=== PATIENT | female | born 1950 | race Caucasian/White ===

== ENCOUNTER 2017-07-28 20:21 | Emergency (ER) | payer MEDICARE, MEDICAID, SELFPAY ==
[2017-07-28 21:05] VITALS: BP 119/42; PULSE 70; RESP 18; TEMP 36.6; O2SAT 97; BMI 28.3
--- NOTE | 2017-07-28 21:22 | HMH.EDUTC ---
[facility] [place] [facility] [place] Clinical Impression: Lip dryness, Bleeding, Anticoagulant long-term use Anemia Qualifiers: Anemia type: unspecified type Qualified Code(s): D64.9 - Anemia, unspecified Disposition: Home, Self-Care Condition on Discharge: Good Additional Instructions: Bleeding was stopped Follow up with Dr. Sullivan tomorrow regarding your anemia. Your blood count has continued to slowly drop since Mar 2017, the last time I see it in the system Your INR was stable at 2.8 Referrals: Monisha Peguero MD [Primary Care Provider] - Time of Disposition: 22:26 Medical Decision Making - Medical Records Medical records reviewed: Yes: I reviewed the patient's medical records. MR Comment: Mar 2017 H/H 9.1/27.9 Vital Signs: 07/28/17 21:05 Temperature 97.9 F Temperature Source Temporal Artery Scan Pulse Rate [Brachial] 70 Respiratory Rate 18 Blood Pressure [Left Arm] 119/42 Blood Pressure Mean [Left Arm] 67 Blood Pressure Source [Left Arm] Automatic Cuff Blood Pressure Position [Left Arm] Sitting 02 Sat by Pulse Oximetry 97 Oxygen Delivery Method Room Air - Lab Data Lab results reviewed: Yes: I reviewed the patient's lab results. Lab Results 07/28/17 21:39: WBC 6.3, RBC 2.96 L, Hgb 8.9 L, Hct 27.0 L, MCV 91.0, MCH 30.1, MCHC 33.1, RDW 15.7, Plt Count 246, MPV 8.7, Neut % (Auto) 69.7, Lymph % (Auto) 22.4, Robeson % (Auto) 5.9, Eos % (Auto) 1.4, Baso % (Auto) 0.6, Neut # (Auto) 4.4, Lymph # (Auto) 1.4, Robeson # (Auto) 0.4, Eos # (Auto) 0.1, Baso # (Auto) 0.0 07/28/17 21:39: PT 30.9 H, INR 2.83 H Result diagrams: 07/28/17 21:39 - Physician Consults Physician Consulted: ROBERT Hidalgo MD Reason -: Pt condition Comment/Response: Discussed PMHx, HPI, exam. Came to clinic to see patient. Knows patient. tried to stop bleeding by infusing surrounding area w/ minimal amount of lidocaine w/ epi. No improvement so he lightly tapped bleeding w/ silver nitrate. Bleeding stopped. - Chet Inquiry Pt receiving controlled substance: No [facility] [place] [facility] [place] - General Stated complaint: skin on lips bleeding Time Seen by Provider: 07/28/17 21:22 Mode of Arrival: Ambulatory Source of Information: Patient Limitations: No Limitations Description of Symptoms (Recalled from Triage Doc. by RN): BOTTOM LIP HAS BEEN BLEEDING SINCE 4 PM TODAY HEENT Symptoms (Recalled from RN notes): No Resp Symptoms (Recalled from RN notes): No Skin Symptoms (Recalled from RN notes): No MS Symptoms (Recalled from RN notes): No Functional Status (Recalled from RN notes): NA - History of Present Illness Provider Complaint: c/o bottom lip bleeding since 4pm. Reports dry lips due to this cold weather . Picked the skin around 4pm. Just a small little hole but it won't stop bleeding . Has tried pressure, ice and then more pressure but continues to slowly bleed. On coumadin. Last INR 07/07 2.9. No changes to medications. Hx of anemia. Has had blood transfusions in the past. Isn't sure what her latest H/H is. - Related Data Home Medications Medication Instructions Recorded Confirmed acetaminophen ER 650 mg 650 mg PO ONCE PRN 07/26/17 tablet,extended release amlodipine 2.5 mg tablet 2.5 mg PO ONCE 07/26/17 atorvastatin 40 mg tablet 40 mg PO ONCE 07/26/17 calcium carbonate 500 mg calcium 500 mg PO QD-BID tab 07/26/17 (1,250 mg) tablet diazepam 2 mg tablet 2 mg PO TID tab 07/26/17 enalapril maleate 10 mg tablet 10 mg PO ONCE tab 07/26/17 ferrous sulfate 325 mg (65 mg 325 mg PO TID tab 07/26/17 iron) tablet furosemide 20 mg tablet 20 mg PO ONCE 07/26/17 glimepiride 2 mg tablet 2 mg PO QAM 07/26/17 isosorbide mononitrate ER 30 mg 30 mg PO QAM 07/26/17 tablet,extended release 24 hr metformin 500 mg tablet 500 mg PO .QDAY tab 07/26/17 metoprolol succinate ER 50 mg 50 mg PO .qday tab 07/26/17 tablet,extended release 24 hr nitroglycerin 0.4 mg sublingual 0.4 mg SUBLINGUAL Q5M PRN 07/26/17 tablet ondansetron HCl 4 mg tablet 4
--- NOTE | 2017-07-28 21:30 | ED_ITS ---
[facility] – [place] Clinical Impression: Lip dryness, Bleeding, Anticoagulant long-term use Anemia Qualifiers: Anemia type: unspecified type Qualified Code(s): D64.9 - Anemia, unspecified Disposition: Home, Self-Care Condition on Discharge: Good Additional Instructions: Bleeding was stopped Follow up with Dr. Sullivan tomorrow regarding your anemia. Your blood count has continued to slowly drop since Mar 2017, the last time I see it in the system Your INR was stable at 2.8 Referrals: Monisha Peguero MD [Primary Care Provider] - Time of Disposition: 22:26 Medical Decision Making - Medical Records Medical records reviewed: Yes: I reviewed the patient's medical records. MR Comment: Mar 2017 H/H 9.1/27.9 Vital Signs: 07/28/17 21:05 Temperature 97.9 F Temperature Source Temporal Artery Scan Pulse Rate [Brachial] 70 Respiratory Rate 18 Blood Pressure [Left Arm] 119/42 Blood Pressure Mean [Left Arm] 67 Blood Pressure Source [Left Arm] Automatic Cuff Blood Pressure Position [Left Arm] Sitting 02 Sat by Pulse Oximetry 97 Oxygen Delivery Method Room Air - Lab Data Lab results reviewed: Yes: I reviewed the patient's lab results. Lab Results 07/28/17 21:39: WBC 6.3, RBC 2.96 L, Hgb 8.9 L, Hct 27.0 L, MCV 91.0, MCH 30.1, MCHC 33.1, RDW 15.7, Plt Count 246, MPV 8.7, Neut % (Auto) 69.7, Lymph % (Auto) 22.4, Grady % (Auto) 5.9, Eos % (Auto) 1.4, Baso % (Auto) 0.6, Neut # (Auto) 4.4 , Lymph # (Auto) 1.4, Grady # (Auto) 0.4, Eos # (Auto) 0.1, Baso # (Auto) 0.0 07/28/17 21:39: PT 30.9 H, INR 2.83 H Result diagrams: 07/28/17 21:39 - Physician Consults Physician Consulted: ROBERT Hidalgo MD Reason -: Pt condition Comment/Response: Discussed PMHx, HPI, exam. Came to clinic to see patient. Knows patient. tried to stop bleeding by infusing surrounding area w/ minimal amount of lidocaine w/ epi. No improvement so he lightly tapped bleeding w/ silver nitrate. Bleeding stopped. - Chet Inquiry Pt receiving controlled substance: No [facility] [place] HPI - General Stated complaint: skin on lips bleeding Time Seen by Provider: 07/28/17 21:22 Mode of Arrival: Ambulatory Source of Information: Patient Limitations: No Limitations Description of Symptoms (Recalled from Triage Doc. by RN): BOTTOM LIP HAS BEEN BLEEDING SINCE 4 PM TODAY HEENT Symptoms (Recalled from RN notes): No Resp Symptoms (Recalled from RN notes): No Skin Symptoms (Recalled from RN notes): No MS Symptoms (Recalled from RN notes): No Functional Status (Recalled from RN notes): NA - History of Present Illness Provider Complaint: c/o bottom lip bleeding since 4pm. Reports dry lips due to this cold weather . Picked the skin around 4pm. Just a small little hole but it won't stop bleeding . Has tried pressure, ice and then more pressure but continues to slowly bleed. On coumadin. Last INR 07/07 2.9. No changes to medications. Hx of anemia. Has had blood transfusions in the past. Isn't sure what her latest H/H is. - Related Data Home Medications Medication Instructions Recorded Confirmed acetaminophen ER 650 mg 650 mg PO ONCE PRN 07/26/17 tablet,extended release amlodipine 2.5 mg tablet 2.5 mg PO ONCE 07/26/17 atorvastatin 40 mg tablet 40 mg PO ONCE 07/26/17 calcium carbonate 500 mg calcium 500 mg PO QD-BID tab 07/26/17 (1,250 mg) tablet diazepam 2 mg tablet 2 mg PO TID tab 07/26/17 enalapril chrissy
[2017-07-28 21:50] LABS: Basophils % 0.6 % (0.1-2.0); Eosinophils # 0.1 K/mm3 (0.0-0.4); Eosinophils % 1.4 % (0.1-12.0); Hemoglobin 8.9 g/dL (12.2-16.2); Lymphocytes # 1.4 K/mm3 (0.7-4.5); Lymphocytes % 22.4 K/mm3 (10-50); Mean Corpuscular HGB Conc 33.1 g/dL (31.8-35.4); Mean Corpuscular Hemoglobin 30.1 pg (27.0-31.2); Mean Platelet Volume 8.7 fl (7.4-10.4); Monocytes # 0.4 K/mm3 (0.1-1.0); Monocytes % 5.9 % (1.7-9.3); Neutrophils # 4.4 K/mm3 (1.8-7.8); Neutrophils % 69.7 % (37.0-80.0); Platelet Count 246 K/mm3 (142-424); Red Blood Count 2.96 M/mm3 (4.20-5.40); Red Cell Distribution Width 15.7 % (11.5-17.5); White Blood Count 6.3 K/mm3 (4.8-10.8)
[2017-07-28 21:55] LABS: INR 2.83 (0.9-1.1); Prothrombin Time 30.9 seconds (9.4-11.8)
== END 2017-07-28 22:32 | disposition home or self-care (01) ==
PROVIDERS: Emergency Provider Nurse Practitioner Family; PCP Family Medicine
DX: K13.0 Diseases of lips (principal); D64.9 Anemia, unspecified; I50.9 Heart failure, unspecified; I25.10 Atherosclerotic heart disease of native coronary artery without angina pectoris; E11.9 Type 2 diabetes mellitus without complications; K21.9 Gastro-esophageal reflux disease without esophagitis; I11.0 Hypertensive heart disease with heart failure; E78.5 Hyperlipidemia, unspecified; M19.90 Unspecified osteoarthritis, unspecified site; Z95.0 Presence of cardiac pacemaker; Z95.1 Presence of aortocoronary bypass graft; Z79.01 Long term (current) use of anticoagulants; Z79.84 Long term (current) use of oral hypoglycemic drugs; Z79.899 Other long term (current) drug therapy; Z85.9 Personal history of malignant neoplasm, unspecified
CPT/HCPCS: 85025; 85610; 99202

== ENCOUNTER → 2017-07-29 12:08 | Outpatient (CLI) | payer MEDICARE, MEDICAID, SELFPAY | PROVIDERS: PCP Family Medicine; Visit Provider Physician Assistant | DX: D64.9 Anemia, unspecified (principal) | CPT/HCPCS: 86850; 86870 ==

== ENCOUNTER → 2017-07-30 08:14 | Outpatient (CLI) | payer MEDICARE, MEDICAID, SELFPAY ==
[2017-07-30] VITALS (19 sets, daily range): BP systolic 116–149; BP diastolic 37–60; PULSE 60–67; RESP 16–18; TEMP 36.2–36.5; O2SAT 95–98; BMI 29.2
[2017-07-30 14:46] LABS: Hematocrit 31.6 % (37.0-47.0); Hemoglobin 11.1 g/dL (12.2-16.2)
== END | disposition home or self-care (01) ==
PROVIDERS: PCP Family Medicine; Visit Provider Family Medicine
DX: D64.9 Anemia, unspecified (principal)
CPT/HCPCS: 36430; 85014; 85018; P9016

== ENCOUNTER → 2017-10-19 08:31 | Outpatient (CLI) | payer MEDICARE, MEDICAID, SELFPAY ==
--- NOTE | 2017-10-19 08:41 | CI_ITS ---
Cerebrovascular Exam Indications: 433.10 Occlusion/stenosis of carotid artery without cerebral infarction. 780.4 Dizziness and giddiness. IMPRESSIONS 1. The bilateral vertebral arteries are patent with normal antegrade flow. 2. Study suggests 20-49% stenosis involving the right internal carotid artery and the left internal carotid artery. No change from the study of 24-Jan-2015. History: Risk factors: Hypertension. Hyperlipidemia. Carotid duplex study. Complete study and Doppler flow study including spectral analysis, color and holguin scale imaging. Height: Height: 152.4cm. Height: 60in. Weight: Weight: 65.3kg. Weight: 143.7lb. Body mass index: BMI: 28.1kg/m^2. Body surface area: BSA: 1.68m^2. Location: Vascular laboratory. Patient status: Outpatient. Tables: Arterial flow: + +--------+--------+ Location V sys V ed + +--------+--------+ Right CCA - proximal 62.9cm/s 14.1cm/s + +--------+--------+ Right CCA - distal 66cm/s 11cm/s + +--------+--------+ Right ECA 126cm/s -------- + +--------+--------+ Right ICA - proximal 95.1cm/s 22.8cm/s + +--------+--------+ Right ICA - mid 80.9cm/s 22cm/s + +--------+--------+ Right ICA - distal 105cm/s 24.7cm/s + +--------+--------+ Right vertebral 51.9cm/s -------- + +--------+--------+ Left CCA - proximal 95.1cm/s 18.9cm/s + +--------+--------+ Left CCA - distal 76.2cm/s 16.5cm/s + +--------+--------+ Left ECA 91.1cm/s -------- + +--------+--------+ Left ICA - proximal 110cm/s 27.5cm/s + +--------+--------+ Left ICA - mid 103cm/s 29.9cm/s + +--------+--------+ Left ICA - distal 99.5cm/s 24.9cm/s + +--------+--------+ Left vertebral 50.3cm/s -------- + +--------+--------+ Velocity ratios: + + + + + + Right, V sys Right, V ed Left, V sys Left, V ed + + + + + + Max ICA/dist CCA 1.59 2.25 1.44 1.81 + + + + + + (Report amended ) Electronically signed by: Arnold Muse [id number]
== END ==
PROVIDERS: PCP Family Medicine; Visit Provider Family Medicine
DX: I65.23 Occlusion and stenosis of bilateral carotid arteries (principal)
CPT/HCPCS: 93880

== ENCOUNTER → 2017-11-24 10:24 | Outpatient (CLI) | payer MEDICARE, MEDICAID, SELFPAY ==
--- NOTE | 2017-11-24 10:41 | CA_ITS ---
PROCEDURE: 2-D M-mode and color Doppler study INDICATIONS FOR THE TEST: Chest pain COPD Heart Murmur Tobacco Smoking Palpitations Fatigue+ Syncope Edema+ Hypertension+Diabetes Mellitus Rheumatic Fever SOB+LINARES Obesity Hyperlipidemia+ Family History HD Additional History PATIENT INFORMATION HEIGHT:60 WEIGHT:146 GENDER: Female B/P: 2-D/M-MODE INTERPRETATION: 2-D MEASUREMENTS OBSERVED VALUES IN CMS Right Ventricular Dimension (RVDd) 2.1 Interventricular Septum (Thickness)(IVsd) 1.6 Left Ventricular Internal Dimensions(LVIDd) 4.6 Left Ventricular Posterior Wall (Thickness)(LVPWd) 0.9 Aortic Root 2.9 Aortic Cusp Separation 1.4 Left Atrial Dimensions (LAD) 4.0 2D 1. Left atrium is mildly enlarged, left ventricle is normal size, there is mild concentric left ventricular hypertrophy, visually estimated ejection fraction 55% with no obvious regional wall motion abnormality. 2. The right atrium and right ventricle are normal size and contractility. There is catheter noted in the right atrium which likely represents a pacemaker lead. 3. The aortic valve leaflets are not well visualized, there is significant calcification of the aortic valve leaflets seen. 4. The mitral valve leaflets are minimally thickened. 5. The tricuspid valve leaflets are minimally thickened. 6. The pulmonic valve is not well visualized. 7. No significant pericardial effusion noted. DOPPLER INTERROGATION: 1. The maximum aortic out flow velocity recorded study. 4.7 m/s, the mean gradient is approximately 40 to 45 mmHg, valve area is not accurately calculated, this likely represents severe aortic stenosis, there is severe aortic insufficiency present. 2. The mitral inflow velocity within normal range, there is no mitral stenosis, there is mild mitral regurgitation. Tissue Doppler is indicated of raised left atrial pressure. 3. There is mild tricuspid regurgitation noted, calculated right ventricular systolic pressure is 61 mmHg consistent with moderate pulmonary hypertension. CONCLUSION: 1. Mildly enlarged left atrium, normal left ventricular size, mild concentric left ventricular hypertrophy, visually estimated ejection fraction 55% with no obvious regional wall motion abnormality, Doppler evidence of raised left atrial pressure. 2. Abnormally aortic valve is described above, with severe aortic stenosis and severe aortic insufficiency. 3. Mild tricuspid regurgitation, calculated right ventricular systolic pressure is 61 mmHg consistent with moderate pulmonary hypertension 4. No significant pericardial
== END ==
PROVIDERS: PCP Family Medicine; Visit Provider Internal Medicine
DX: I35.1 Nonrheumatic aortic (valve) insufficiency (principal); I25.10 Atherosclerotic heart disease of native coronary artery without angina pectoris; I11.9 Hypertensive heart disease without heart failure; E78.5 Hyperlipidemia, unspecified; Z95.0 Presence of cardiac pacemaker; Z95.2 Presence of prosthetic heart valve
CPT/HCPCS: 93306

== ENCOUNTER → 2017-11-26 11:02 | Outpatient (CLI) | payer MEDICARE, MEDICAID, SELFPAY ==
--- NOTE | 2017-11-26 11:15 | XR_ITS ---
XR knee RT 4V HISTORY: ITS.REASON: right knee pain ORDERING PHYSICIAN: Bravo Callahan MD PATIENT AGE: 66 years COMPARISON: None FINDINGS: There are severe osteoarthritic changes at the patellofemoral joint with loss of joint space, osteosclerosis, and bony spurring. Mild osteoarthritis involves the medial lateral compartment. No fracture or dislocation. 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
--- NOTE | 2017-11-26 11:15 | XR_ITS ---
XR hip LT 2-3V w/pelvis HISTORY: ITS.REASON: left hip pain ORDERING PHYSICIAN: Bravo Callahan MD PATIENT AGE: 66 years COMPARISON: None FINDINGS: Minimal osteoarthritic changes are present at the left hip with minimal spurring along the inferior aspect of acetabulum and slight decrease in the joint space superiorly. There is degenerative disc disease with facet arthritic change at L4-L5. No fracture, dislocation, lytic or blastic change. IMPRESSION: Minimal osteoarthritis of left hip
--- NOTE | 2017-11-26 11:15 | XR_ITS ---
XR knee LT 4V HISTORY: ITS.REASON: left knee pain ORDERING PHYSICIAN: Bravo Callahan MD PATIENT AGE: 66 years COMPARISON: 01/13/2017 FINDINGS: There are mild osteoarthritic changes of the medial and lateral compartment with moderate osteoarthritic changes of the patellofemoral joint and greater along the lateral facet with bony hypertrophic change. The previously noted loose body is not apparent on today's exam IMPRESSION: Moderate osteoarthritic change of the patellofemoral joint and mild osteoarthritic change of the medial and lateral compartment
== END ==
PROVIDERS: PCP Family Medicine; Visit Provider Orthopaedic Surgery
DX: M25.552 Pain in left hip (principal); M25.562 Pain in left knee; M25.561 Pain in right knee
CPT/HCPCS: 73502; 73564

== ENCOUNTER 2017-12-07 13:47 | Outpatient (RCR) | payer MEDICARE, MEDICAID, SELFPAY ==
--- NOTE | 2017-12-07 18:36 | HMH.PTOPEV ---
PT Outpatient Evaluation Rehab PT Outpatient Evaluation Start: 12/07/17 14:38 Freq: Status: Active Protocol: Document 12/07/17 14:39 OLIVIA (Rec: 12/07/17 15:09 JOEANAI [id number]) Electronically Signed By John Schrader, PT 12/07/17 14:39 Outpatient Therapy Subjective History Subjective History Pt is a 66 year old female presenting to outpatient PT with reports of L hip, bilateral knee pain and L distal LE pain. L hip pain is of insidious onset starting appproximately 3 weeks ago. BLE knee pain is chronic in nature. L anterior tibialis pain decreased with lumbar manual traction and lumbar flexion. Special tests indicate L upslip of the innominant. Most recently she received an injection into the L hip that did not provide any relief per patient report. Comorbidities include pacemaker, cardio stent and diabetes. Chief Complaint Pain Clicks Symptom Type Ache Sharp Dull Symptoms Relieved By Rest/Positioning Symptoms Aggravated By Prone Sitting Standing Physical Activity Twisting Walking Lifting Prior Functional Limitations None Current Functional Limitations Reaching Lifting Housework Sleeping Standing Sitting Squatting Recreation Activity Walking Stairs Balance Symptom Description Constant and Continuous Level of pain today (0-10) 9 Pain scale - at its best (0-10) 9 Pain scale - at its worst (0-10) 9 Hip/Knee Eval Gait Observation General Gait Pattern Observation Antalgic Gait Assistive Device Assistive Devices None / NA Palpation Tenderness bilateral Knee Palpation Finding Tende
== END 2017-12-07 13:48 | disposition home or self-care (01) ==
LOC: PT 13:47
PROVIDERS: PCP Family Medicine; Visit Provider Orthopaedic Surgery
DX: M70.72 Other bursitis of hip, left hip (principal); M17.0 Bilateral primary osteoarthritis of knee
CPT/HCPCS: 97010; 97035; 97110; 97163

== ENCOUNTER → 2018-01-21 09:26 | Outpatient (CLI) | payer MEDICARE, MEDICAID, SELFPAY ==
--- NOTE | 2018-01-21 09:29 | MM_ITS ---
MM Dig screening mamm BI w/CAD CAD Screening COMPARISON: Digital mammograms with CAD 01/19/2017 and 01/17/2016 INDICATION: There is no personal or family history of breast cancer TECHNIQUE: Standard CC and MLO images were obtained. R2 CAD reviewed. FINDINGS: The breasts are composed primarily of fat with minimal scattered fiber glandular densities in each breast. There is a cardiac pacemaker projecting over the axillary tail the left breast. There are couple benign-appearing calcination is right breast and no suspicious microcalcifications. IMPRESSION: Fatty type breast parenchyma with no suspicious lesion seen recommend yearly follow-up BI-RADS Category: 2 Benign Finding(s) RECOMMENDED FOLLOW-UP: 1YR - 1 YEAR FOLLOW-UP (A letter has been sent to the patient regarding results of the study.)
== END ==
PROVIDERS: PCP Family Medicine; Visit Provider Family Medicine
DX: Z12.31 Encounter for screening mammogram for malignant neoplasm of breast (principal)
CPT/HCPCS: 77067

== ENCOUNTER → 2018-05-19 09:52 | Outpatient (CLI) | payer MEDICARE, MEDICAID, SELFPAY ==
--- NOTE | 2018-05-19 09:59 | CT_ITS ---
CT chest wo con HISTORY: Chest pain, Aortic regurgitation, open heart surgery with persistent posterior chest pain, ITS.REASON: . ORDERING PHYSICIAN: Tye Smith MD PATIENT AGE: 67 years COMPARISON: None Technique: Axial images obtained with sagittal and coronal reformats. All CT scans at the facility use one or more dose reduction, viz: automated exposure control, ma/kV adjustment per patient size (including targeted exams where dose is matched to indication, i.e. head), or iterative reconstruction technique. FINDINGS: Mediastinal evaluation is limited without IV contrast. Status post median sternotomy. There is some stranding of the presternal soft tissues in keeping with patient's recent postsurgical state. No obvious sternal dehiscence. The left sternal fragment is very slightly displaced posterior by 2 3-mm. There is some increased soft tissue density in the anterior mediastinum which may related to the recent surgery. Status post aortic valve repair. Cardiac pacemaker device is present. Heart size is normal. There are small hiatal hernia.. Gas is present within the esophagus with mild thickening of the mid and distal esophagus which could be due to reflux esophagitis. Artifact is present from cardiac pacemaker device with the generator in the left upper chest. No hilar mass. There is a 10 mm nodule in the right upper lobe along the minor fissure noncalcified. There is a 6 mm noncalcified nodule in the right middle lobe. Several small opacities are present in the right middle lobe laterally nonspecific. Similar cluster of small opacities are present in the left upper lobe. Only. These have a somewhat tree-in-bud pattern and may be due to patchy areas of infiltrate. Mild atelectatic changes are present in the lingula. A subpleural nodule is present in the left lower lobe at 7 mm. There is a small left pleural effusion. Minimal nodularity is present in the left apex medially. Upper abdominal images show a small hiatal hernia. There is an isodense lesion involving the right hepatic lobe posteriorly at 2.6 cm with peripheral calcification. There are 2 smaller nodules anterior to this lesion at 1 and 1.3 cm. Postsurgical changes are present along the anterior abdominal wall in the subxiphoid area. No acute bony anomalies. IMPRESSION: 1., Status post median sternotomy with aortic valve replacement with postsurgical changes of the mediastinum and sternum and presternal area as described above. 2. Hiatal hernia with thickening of the mid and distal esophagus which may be related to reflux esophagitis 3. Scattered pulmonary nodules as described above which are nonspecific. The largest nodules in the region of the minor fissure on the right may be due to a lymph node. 3 month follow-up CT suggested 4. 2.6 cm hypodense nodule of the right lobe of the liver with 2 additional hypodense lesions anterior to the larger lesion. These were present on the older CT scan of 12/30/2007 felt to represent hemangiomas.
== END ==
PROVIDERS: PCP Family Medicine; Visit Provider Internal Medicine Cardiovascular Disease
DX: I11.9 Hypertensive heart disease without heart failure; I25.10 Atherosclerotic heart disease of native coronary artery without angina pectoris; R07.9 Chest pain, unspecified; Z95.0 Presence of cardiac pacemaker; E78.49 Other hyperlipidemia
CPT/HCPCS: 71250

== ENCOUNTER → 2018-06-06 12:50 | Outpatient (POV) | payer MEDICARE, MEDICAID, SELFPAY | PROVIDERS: Visit Provider Nurse Practitioner Acute Care | DX: Z00.00 Encounter for general adult medical examination without abnormal findings (principal) ==

== ENCOUNTER → 2018-08-08 11:08 | Outpatient (POV) | payer MEDICARE, MEDICAID, SELFPAY | PROVIDERS: Visit Provider Nurse Practitioner Acute Care | DX: Z00.00 Encounter for general adult medical examination without abnormal findings (principal) ==

== ENCOUNTER → 2018-09-15 16:08 | Outpatient (CLI) | payer MEDICARE, MEDICAID, SELFPAY ==
[2018-09-15 16:50] LABS: Adenovirus F 40/41, stool Not Detected (NotDetected); Astrovirus Not Detected (NotDetected); Campylobacter Not Detected (NotDetected); Clostridium Difficile A/B, PCR Not Detected (NotDetected); Cryptosporidium Not Detected (NotDetected); Cyclospora Cayetanesis Not Detected (NotDetected); Entamoeba histolytica Not Detected (NotDetected); Enteroaggregative E coli Not Detected (NotDetected); Enteropathogenic E coli Not Detected (NotDetected); Enterotoxigenic E coli Not Detected (NotDetected); Giardia lamblia Not Detected (NotDetected); Norovirus Not Detected (NotDetected); Plesimonas Shigalloides, PCR Not Detected (NotDetected); Rotavirus A Not Detected (NotDetected); Salmonella, PCR Not Detected (NotDetected); Sapovirus Not Detected (NotDetected); Shiga-like toxin E coli Not Detected (NotDetected); Shigella Enterovasive E coli Not Detected (NotDetected); Vibrio Cholerae Not Detected (NotDetected); Vibrio, PCR Not Detected (NotDetected); Yersinia Entercolitica, PCR Not Detected (NotDetected)
== END ==
PROVIDERS: Visit Provider Physician Assistant
DX: R19.7 Diarrhea, unspecified (principal)
CPT/HCPCS: 87506

== ENCOUNTER → 2018-11-25 12:31 | Outpatient (CLI) | payer MEDICARE, MEDICAID, SELFPAY ==
[2018-11-25 13:58] LABS: Alanine Aminotransferase 40 U/L (12-78); Albumin Level 4.1 gm/dL (3.4-5.0); Alkaline Phosphatase 116 U/L (46-116); Aspartate Amino Transferase 16 U/L (15-37); Bilirubin,Direct 0.1 mg/dL (0.0-0.2); Bilirubin,Indirect 0.3 mg/dL (0.0-0.9); Bilirubin,Total 0.4 mg/dL (0.2-1.0); Chol/HDL Ratio 3.6 (1-3.5); Cholesterol 193 mg/dL (140-200); HDL Cholesterol 53 mg/dL (29-89); LDL Cholesterol 100 mg/dL (0-130); Total Protein,Serum 7.2 gm/dL (6.4-8.2); Triglycerides 199 mg/dL (30-200); VLDL Cholesterol 40 mg/dL (0-40)
== END ==
PROVIDERS: Visit Provider Internal Medicine Cardiovascular Disease
DX: I11.9 Hypertensive heart disease without heart failure; I25.10 Atherosclerotic heart disease of native coronary artery without angina pectoris; R06.09 Other forms of dyspnea; Z95.0 Presence of cardiac pacemaker; Z95.1 Presence of aortocoronary bypass graft; Z95.3 Presence of xenogenic heart valve; E78.49 Other hyperlipidemia
CPT/HCPCS: 36415; 80061; 80076

== ENCOUNTER → 2018-12-16 09:50 | Outpatient (CLI) | payer MEDICARE, MEDICAID, SELFPAY ==
--- NOTE | 2018-12-16 09:52 | CI_ITS ---
Cerebrovascular Exam Indications: 433.10 Occlusion/stenosis of carotid artery without cerebral infarction. IMPRESSIONS 1. The bilateral vertebral arteries are patent with normal antegrade flow. 2. Study suggests 20-49% stenosis involving the right internal carotid artery and the left internal carotid artery. No change from the study of 19-Oct-2017. 3. Tortuous carotid arteries seen bilaterally. Carotid duplex study. Complete study and Doppler flow study including spectral analysis, color and holguin scale imaging. Location: Vascular laboratory. Patient status: Outpatient. Tables: Arterial flow: + +--------+--------+ Location V sys V ed + +--------+--------+ Right CCA - proximal 72.3cm/s 17.3cm/s + +--------+--------+ Right CCA - distal 72.3cm/s 18.9cm/s + +--------+--------+ Right ECA 144cm/s -------- + +--------+--------+ Right ICA - proximal 97.4cm/s 29.9cm/s + +--------+--------+ Right ICA - mid 118cm/s 39.3cm/s + +--------+--------+ Right ICA - distal 86.4cm/s 30.6cm/s + +--------+--------+ Right vertebral 58.1cm/s -------- + +--------+--------+ Left CCA - proximal 77.8cm/s 18.9cm/s + +--------+--------+ Left CCA - distal 75.4cm/s 20.4cm/s + +--------+--------+ Left ECA 110cm/s -------- + +--------+--------+ Left ICA - proximal 95.1cm/s 29.9cm/s + +--------+--------+ Left ICA - mid 97.4cm/s 36.9cm/s + +--------+--------+ Left ICA - distal 152cm/s 46.4cm/s + +--------+--------+ Left vertebral 63.6cm/s -------- + +--------+--------+ Velocity ratios: + + + + + + Right, V sys Right, V ed Left, V sys Left, V ed + + + + + + Max ICA/dist CCA 1.63 2.08 2.02 2.27 + + + + + + (Report amended ) Electronically signed by: Arnold Muse [id number]
== END ==
PROVIDERS: PCP Family Medicine; Visit Provider Urology
DX: I65.23 Occlusion and stenosis of bilateral carotid arteries (principal)
CPT/HCPCS: 93880

== ENCOUNTER → 2019-01-24 10:32 | Outpatient (POV) | payer MEDICARE, MEDICAID, SELFPAY | PROVIDERS: Visit Provider Otolaryngology | DX: Z00.00 Encounter for general adult medical examination without abnormal findings (principal) ==

== ENCOUNTER → 2019-07-18 10:56 | Outpatient (CLI) | payer MEDICARE, OTHER, SELFPAY ==
--- NOTE | 2019-07-18 10:57 | CA_ITS ---
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: CT Laterality: Bilateral Study Quality: Good Indications: NEFTALI Risk Factors Hyperlipidemia Doppler Spectral Velocity Analysis ECA (R) 193.00/23.90 cm/s ECA (L) 95.70/9.60 cm/s dICA (R) 72.30/15.80 cm/s dICA (L) 147.60/48.10 cm/s Paris (R) 90.50/22.50 cm/s [place] (L) 99.50/33.40 cm/s pICA (R) 80.30/23.80 cm/s pICA (L) 85.50/27.30 cm/s dCCA (R) 57.90/10.40 cm/s dCCA (L) 97.00/20.50 cm/s pCCA (R) 89.40/17.60 cm/s pCCA (L) 76.50/20.30 cm/s Vert (R) 56.40/17.30 cm/s Vert (L) 60.70/13.30 cm/s ICA/CCA 1.60 ICA/CCA 1.50 Findings Duplex evaluation demonstrates stenosis of the right and left proximal internal carotid artery in the range of 20-49%. Duplex evaluation demonstrates antegrade flow of the bilateral Vertebral Arteries. Tortuous Internal carotid arteries seen distally. Conclusion Duplex evaluation demonstrates stenosis of the right and left proximal internal carotid artery in the range of 20-49%. Electronically signed by : Arnold Muse MD 07/18/2019 16:14:37
== END ==
PROVIDERS: PCP Family Medicine; Visit Provider Internal Medicine Cardiovascular Disease
DX: I65.23 Occlusion and stenosis of bilateral carotid arteries (principal)
CPT/HCPCS: 93880

== ENCOUNTER → 2019-08-07 09:51 | Outpatient (POV) | payer MEDICARE, OTHER, SELFPAY | PROVIDERS: Visit Provider Nurse Practitioner Family | DX: Z00.00 Encounter for general adult medical examination without abnormal findings (principal) ==

== ENCOUNTER 2019-10-27 14:05 | Emergency (ER) | payer MEDICARE, OTHER, SELFPAY ==
[2019-10-27 14:13] VITALS: BP 160/86; PULSE 80; RESP 18; TEMP 36.6; O2SAT 96; BMI 29.2
--- NOTE | 2019-10-27 14:16 | XR_ITS ---
PROCEDURE: XR CHEST PORTABLE CLINICAL HISTORY: cough/respiratory symptoms COMPARISON: CXR CHEST(2 VIEWS-NOT PORTABLE) from 12/05/2013 CXR1 CHEST-PORTABLE from 01/08/2014 CXR CHEST(2 VIEWS-NOT PORTABLE) from 10/25/[address] chest wo con from 05/19/2018 FINDINGS: There has been a prior CABG. Bipolar pacemaker is present from the left subclavian approach and there is a implantable device at the aortic valve region. The lungs are clear without infiltrates, suspicious nodules, or pleural effusions. No acute bony abnormalities. IMPRESSION: No acute findings. Dictated by: Arnold Muse MD 10/27/2019 15:05 Electronically signed by Arnold Muse MD in [place] 10/27/2019 15:05
--- NOTE | 2019-10-27 14:38 | HMH.COUGH ---
Cough Clinic HPI - History of Present Illness Complaint:: Cough HPI:: 68-year-old female with history of CHF, CABG x2, pacemaker, lives with a smoker who presents with persistent cough. Cough has been persistent for several weeks. Denies fever, dyspnea with exertion, nausea, vomiting, chest pain. While she denies smoking herself, her roommate is her [id number] who smokes a pack a day. Patient otherwise has a paucity of symptoms. Onset (ago): week(s) Severity: mild Home Medications: Home Medications Medication Instructions Recorded Confirmed Type acetaminophen 650 mg 650 mg PO ONCE PRN 07/26/17 10/27/19 History tablet,extended release diazepam 2 mg tablet 2 mg PO TID tab 07/26/17 10/27/19 History glimepiride 2 mg tablet 2 mg PO QAM 07/26/17 10/27/19 History nitroglycerin 0.4 mg sublingual 0.4 mg SUBLINGUAL Q5M PRN 07/26/17 10/27/19 History tablet venlafaxine 37.5 mg tablet 37.5 mg PO BID 07/26/17 10/27/19 History aspirin 81 mg chewable tablet 81 mg PO DAILY 05/13/18 10/27/19 History gabapentin 100 mg capsule 100 mg PO DAILY 05/13/18 10/27/19 History metformin 500 mg tablet 500 mg PO BID tab 05/13/18 10/27/19 History omeprazole 20 mg capsule,delayed 20 mg PO DAILY 05/13/18 10/27/19 History release amlodipine 2.5 mg tablet 2.5 mg PO DAILY 11/25/18 10/27/19 History atorvastatin 80 mg tablet 40 mg PO DAILY 30 Days #15 tab 11/25/18 10/27/19 History ferrous sulfate 325 mg (65 mg 325 mg PO TID tab 11/25/18 10/27/19 History iron) tablet furosemide 20 mg tablet 20 mg PO DAILY 11/25/18 10/27/19 History calcium carbonate-vitamin D3 600 600 cap PO DAILY cap 12/13/18 10/27/19 History mg calcium-200 unit capsule loratadine 10 mg tablet 10 mg PO DAILY 12/13/18 10/27/19 History metoprolol succinate 50 mg 50 mg PO DAILY 12/13/18 10/27/19 History tablet,extended release 24 hr quetiapine 50 mg tablet 50 mg PO BID 12/13/18 10/27/19 History Enalapril Maleate 10 mg PO DAILY 08/28/19 10/27/19 History Allergies/Adverse Reactions: Allergies Allergy/AdvReac Type Severity Reaction Status Date / Time codeine [CODEINE] Allergy Unknown WEAK Verified 10/27/19 14:10 hydrochlorothiazide Allergy Unknown I-RASH Verified 10/27/19 14:10 [HYDROCHLOROTHIAZIDE] hydrocodone [HYDROCODONE] Allergy Unknown I-RASH Verified 10/27/19 14:10 metoclopramide Allergy Unknown SLURRED Verified 10/27/19 14:10 [METOCLOPRAMIDE] SPEECH, WEAK nifedipine [NIFEDIPINE] Allergy Unknown I-HIVES Verified 10/27/19 14:10 prazosin [PRAZOSIN] Allergy Unknown ITCHING/WEA Verified 10/27/19 14:10 K triamterene [TRIAMTERENE] Allergy Unknown I-RASH Verified 10/27/19 14:10 Cough Clinic Triage - Symptoms Fever History: No Chills: No Myalgia: No Nasal Drainage: No Sore Throat: No Productive Cough: No Non-productive Cough: Yes Ear or Sinus Pain: No Joint Pain: No Chest Pain: No Rash: No Shortness of Breath: No Nausea or Vomitting: No Headache: No Abdominal Pain: No Diarrhea: No - Exposure History Foreign Travel: No Direct Contact with COVID-19 Patient: No - Risk Factors Greater than 60 Years Old: Yes COPD: No Diabetes: Yes Heart Disease: Yes Home Oxygen Use: No Chronic Renal Disease: No Chronic Liver Disease: No Neurologic/Neurodevelopmental/intellectual disability: No Other Chronic Diseases: No If Female, currently : No Current Smoker: No Former Smoker: No Cough Clinic History I have reviewed the patient's past medical history: Yes Medical History: Reports:: Cancer (skin), Congestive Heart Failure, Coronary Artery Disease, Diabetes Mellitus Type 2, Gastroesophageal Reflux Disease(GERD), Hyperlipidemia, Hypertension, Internal Pacemaker, Myocardial Infarction, Valvular Heart Disease Denies:: Diabetes Mellitus Type 1, MRSA, Seizures Other Medical History: Reports: Anemia, Arthritis Comment: depression Laterality Cases: Left: Arthroscopy Knee, Bilateral: Tonsillectomy Other Surgeries: Yes: Appendectomy, Cardiac Cath
[2019-10-27 15:17] VITALS: BP 160/86; PULSE 79; RESP 18; TEMP 36.6; O2SAT 96
== END 2019-10-27 15:16 | disposition home or self-care (01) ==
PROVIDERS: Emergency Provider Internal Medicine Adolescent Medicine; PCP Family Medicine
DX: I11.0 Hypertensive heart disease with heart failure (principal); I50.43 Acute on chronic combined systolic (congestive) and diastolic (congestive) heart failure; Z95.0 Presence of cardiac pacemaker; Z95.1 Presence of aortocoronary bypass graft; I25.2 Old myocardial infarction; I25.10 Atherosclerotic heart disease of native coronary artery without angina pectoris; E11.9 Type 2 diabetes mellitus without complications; K21.9 Gastro-esophageal reflux disease without esophagitis; E78.5 Hyperlipidemia, unspecified
CPT/HCPCS: G0463; 71045; 99201; 99213

== ENCOUNTER 2019-10-31 19:18 | Emergency (ER) | payer MEDICARE, OTHER, SELFPAY ==
[2019-10-31 19:20] VITALS: BP 141/82; PULSE 88; RESP 16; TEMP 36.7; O2SAT 99; BMI 31.0
--- NOTE | 2019-10-31 19:40 | CT_ITS ---
PROCEDURE: CT HEAD/BRAIN WO CON CLINICAL INDICATION: headache for a week Severe headache COMPARISON: [facility] CT HEAD W/O CONTRAST from 03/08/2013 TECHNIQUE: Axial images obtained. All CT scans at the facility use one or more dose reduction, viz: automated exposure control, ma/kV adjustment per patient size (including targeted exams where dose is matched to indication, i.e. head), or iterative reconstruction technique. FINDINGS: No midline shift, mass effect, intracranial hemorrhage, hydrocephalus, or extra-axial fluid collection is evident. There is generalized atrophy with hypoattenuation of the periventricular white matter consistent with microangiopathic changes. Small old remote lacunar infarction is present in the genu of the right internal capsule. The calvarium has an unremarkable appearance. No mastoid effusion. No sinus air-fluid level. IMPRESSION: No acute intracranial finding Dictated by: Arnold Muse MD 10/31/2019 21:24 Electronically signed by Arnold Muse MD in [place] 10/31/2019 21:24
--- NOTE | 2019-10-31 19:40 | XR_ITS ---
PROCEDURE: XR CHEST 2V CLINICAL HISTORY: chest pain a couple of days ago Chest pain, heart disease COMPARISON: CXR1 CHEST-PORTABLE from 01/08/2014 CXR CHEST(2 VIEWS-NOT PORTABLE) from 10/25/[address] chest wo con from 05/19/2018 XR CHEST PORTABLE from 10/27/2019 FINDINGS: There is a bipolar pacemaker present from left subclavian approach. There has been a prior CABG. Aortic valve prosthesis is present. No evidence of CHF. The lungs are clear without infiltrates, suspicious nodules, or pleural effusions. No acute bony abnormalities. IMPRESSION: No acute findings. Dictated by: Arnold Muse MD 10/31/2019 21:28 Electronically signed by Arnold Muse MD in [place] 10/31/2019 21:28
--- NOTE | 2019-10-31 19:40 | ECG_ITS ---
APPROVED REPORT Exam: Resting ECG HR:78 bpm ECG Measurements Heart Rate 78 AXES VT 152 P 28 QRSd 148 QRS -65 QT 410 T 93 QTc 467 <Conclusion> Electronic ventricular pacemaker Electronically signed by : Davin White, 11/01/2019 17:15:57
[2019-10-31 20:00] LABS: Basophils # 0.1 K/mm3 (0-0.2); Basophils % 1.1 % (0.1-2.0); Eosinophils # 0.2 K/mm3 (0.0-0.4); Eosinophils % 1.9 % (0.1-12.0); Hematocrit 35.6 % (37.0-47.0); Hemoglobin 12.1 g/dL (12.2-16.2); Lymphocytes # 2.1 K/mm3 (0.7-4.5); Lymphocytes % 23.7 % (10-50); Mean Corpuscular HGB Conc 33.8 g/dL (31.8-35.4); Mean Corpuscular Volume 91.7 fl (81-99); Mean Platelet Volume 7.7 fl (7.4-10.4); Monocytes # 0.6 K/mm3 (0.1-1.0); Monocytes % 6.9 % (1.7-9.3); Neutrophils # 5.8 K/mm3 (1.8-7.8); Neutrophils % 66.3 % (37.0-80.0); Platelet Count 257 K/mm3 (142-424); Red Blood Count 3.89 M/mm3 (4.20-5.40); Red Cell Distribution Width 14.5 % (11.5-17.5); White Blood Count 8.7 K/mm3 (4.8-10.8)
[2019-10-31 20:03] LABS: Chloride 102 mmol/L (98-107); Potassium 4.1 mmoL/L (3.5-5.1); Sodium 138 mmol/L (136-145)
--- NOTE | 2019-10-31 20:04 | PC.NURSE ---
pt in radiology
[2019-10-31 20:06] LABS: Alanine Aminotransferase 94 U/L (12-78); Albumin Level 4.8 g/dl (3.5-5.0); Albumin/Globulin Ratio 1.7 (1.1-1.8); Alkaline Phosphatase 129 U/L (38-126); Anion Gap 26.1 mEq/L (5-15); Aspartate Amino Transferase 55 U/L (14-36); Bilirubin,Total 0.4 mg/dl (0.2-1.3); Blood Urea Nitrogen 14 mg/dl (7-17); Calcium 10.1 mg/dl (8.4-10.2); Carbon Dioxide 14 mmol/L (22.0-30.0); Creatinine Clearance Estimated 60 mL/min (50-200); Estimated Glomerular Filt Rate 83 ml/min (>60); GFR (African American) 100 ML/MIN (>60); Globulin 2.9 g/dL (1.3-3.2); Glucose 81 mg/dl (74-100); Total Protein,Serum 7.7 g/dl (6.3-8.2)
[2019-10-31 20:22] VITALS: BP 169/98; PULSE 78; RESP 16; O2SAT 96
[2019-10-31 20:22] LABS: Troponin I < 0.01 ng/ml (0.00-0.034)
--- NOTE | 2019-10-31 20:26 | HMH.EDHA ---
ED Disposition Clinical Impression: Cardiac pacemaker in situ Headache Qualifiers: Headache type: unspecified Headache chronicity pattern: acute headache Intractability: not intractable Qualified Code(s): R51 - Headache Disposition: Home, Self-Care Condition on Discharge: Good Instructions: DI for Headache Additional Instructions: call pcp in am Referrals: Monisha Peguero MD [Primary Care Provider] - - Critical Care Critical Care Time: No Attestation: On 10/31/19, the high probability of a clinically significant, sudden or life threatening deterioration of the following system(s) required my full and direct attention, intervention and personal management. The time I documented below is in addition to time spent performing reported procedures but includes the following listed in this critical care notation. Medical Decision Making - Medical Records Medical records reviewed: Yes: I reviewed the patient's medical records. - Chet Inquiry Pt receiving controlled substance: No Vital Signs: 10/31/19 19:20 10/31/19 20:22 Temperature 98.1 F Temperature Source Oral Pulse Rate [Left Radial] 88 78 Respiratory Rate 16 16 Blood Pressure [Right Arm] 141/82 H 169/98 H Blood Pressure Mean [Right Arm] 101 121 Blood Pressure Source [Right Arm] Automatic Cuff Blood Pressure Position [Right Arm] Sitting 02 Sat by Pulse Oximetry 99 96 Oxygen Delivery Method Room Air Room Air - Lab Data Lab results reviewed: Yes: I reviewed the patient's lab results. Lab Results 10/31/19 19:45: WBC 8.7, RBC 3.89 L, Hgb 12.1 L, Hct 35.6 L, MCV 91.7, MCH 31.0, MCHC 33.8, RDW 14.5, Plt Count 257, MPV 7.7, Neut % (Auto) 66.3, Lymph % (Auto) 23.7, Mitchell % (Auto) 6.9, Eos % (Auto) 1.9, Baso % (Auto) 1.1, Neut # (Auto) 5.8, Lymph # (Auto) 2.1, Mitchell # (Auto) 0.6, Eos # (Auto) 0.2, Baso # (Auto) 0.1 10/31/19 19:45: Sodium 138, Potassium 4.1, Chloride 102, Carbon Dioxide 14 L, Anion Gap 26.1 H, BUN 14, Creatinine 0.70, Estimated Creat Clear 60, Estimated GFR 83, Est GFR ( Amer) 100, Glucose 81, Calcium 10.1, Total Bilirubin 0.4, AST 55 H, ALT 94 H, Alkaline Phosphatase 129 H, Troponin I < 0.01, Total Protein 7.7, Albumin 4.8, Globulin 2.9, Albumin/Globulin Ratio 1.7 Result diagrams: 10/31/19 19:45 10/31/19 19:45 Orders (Tests/Meds): ED MEDICATIONS Generic Name Dose Route Start Last Admin Trade Name Freq PRN Reason Stop Dose Admin Sodium Chloride 1,000 mls @ 999 mls/hr 10/31/19 19:45 10/31/19 20:05 Sod Chlor 0.9% 1000ml Bag IV 10/31/19 20:45 999 mls/hr .Q1H1M SALEEM Administration Discontinued Medications Generic Name Dose Route Start Last Admin Trade Name Freq PRN Reason Stop Dose Admin Ketorolac Tromethamine 30 mg 10/31/19 19:43 10/31/19 20:14 Toradol 30mg/Ml Vial IV 10/31/19 19:44 30 mg ONCE ONE Administration Methylprednisolone Sodium Succinate 125 mg 10/31/19 19:43 10/31/19 20:05 Solu-Medrol 125mg/2ml Vial IV 10/31/19 19:44 125 mg ONCE ONE Administration Promethazine HCl 12.5 mg 10/31/19 20:10 10/31/19 20:14 Phenergan 25mg/Ml 1ml Vial IV 10/31/19 20:11 12.5 mg ONCE ONE Administration Sodium Chloride 25 ml 10/31/19 20:10 10/31/19 20:14 Sod Chlor 0.9% 25ml Bag IV 10/31/19 20:11 25 ml ONCE ONE Administration ORDERS Category Date Time Status CT head/brain wo con Stat Cat Scan 10/31/19 19:40 Taken XR chest 2V Stat Exams 10/31/19 19:40 Taken Troponin I Q3H Lab 10/31/19 22:45 Ordered Troponin I Q3H Lab 11/01/19 01:45 Ordered - Radiology Data #1 Image(s): Chest Image Reviewed: Yes I reviewed the patient's radiology image Preliminary Findings: Normal/NAD - CT Data CT Scan: Head Time Received: 20:[address] Reviewed: Yes: I have viewed the radiologist's interpretation Preliminary Findings: Normal/NAD - ECG Data Tracing #1 Arrhythmias present: other (pacemaker) Headache HPI - General Chief Complaint: Headache Stated Comp
[2019-10-31 21:06] VITALS: BP 160/88; PULSE 79; RESP 16; TEMP 36.7; O2SAT 100
[2019-10-31 21:11] VITALS: BP 160/55; PULSE 79; RESP 16; O2SAT 100
== END 2019-10-31 21:13 | disposition home or self-care (01) ==
PROVIDERS: Emergency Medicine; Emergency Provider Emergency Medicine; PCP Family Medicine
DX: R51 Headache (principal); Z95.0 Presence of cardiac pacemaker; I10 Essential (primary) hypertension; E11.9 Type 2 diabetes mellitus without complications; Z79.84 Long term (current) use of oral hypoglycemic drugs; K21.9 Gastro-esophageal reflux disease without esophagitis; E78.5 Hyperlipidemia, unspecified; I25.2 Old myocardial infarction; Z88.5 Allergy status to narcotic agent; Z88.8 Allergy status to other drugs, medicaments and biological substances
CPT/HCPCS: 70450; 71046; 80053; 84484; 85025; 93005; 96365; 96375; 99284

== ENCOUNTER → 2019-12-11 06:13 | Outpatient (CLI) | payer MEDICARE, OTHER, SELFPAY ==
--- NOTE | 2019-12-11 | CA_ITS ---
APPROVED REPORT Exam: Pharmacologic Technologist: alejandra kang, Ht: 5 ft 0 in Wt: 157 lbs BSA: 1.68 m2 HR: 65 bpm BP: 177/79 mmHg Indications: CP, SOB Medical History Medications: Isosorbide,,,,, Metoprolol,,,,, Asa,,,,, Metformin,,,,, Gabapentin,,,,, Diazepam,,,,, Glimepiride,,,,, Lasix,,,,, Lipitor,,,,, EnALAPRIL,,,,, Quetiapine,,,,, OmPERAZOLE,,,,, Allergies: codiene, metoclopramide, HCTZ, nifedipin, prazosin, triameterene Cardiac Risk Factors: HTN, Hyperlipidemia, , Diabetes (non-insulin), FHX of CAD Previous Cardiac Procedures: Valve Replacement Stress Test Details Test: LEXISCAN HR Resting HR: 68 bpm Max Heart Rate (APMHR): 150 bpm Max HR Achieved: 100 bpm Target HR (85% APMHR): 127 bpm % of APMHR: 66 Recovery HR: 91 bpm BP Resting BP: 179/77 mmHg Max BP: 179/77 mmHg Recovery BP: 154.0/76.0 mmHg ECG Resting ECG: Sinus Rhythm (abn) Clinical Exercise duration: 04:01 min Highest Stage Achieved: Exercise capacity: 1.0 METs Stress ECG Conclusion Patient only complaint was only SOB. No chest pain. Complaints resolved during recovery. No ectopy. Greater than 1.5mm ST Depression. Images to follow. Test Summary REST 02:04 . . 68 . 179/ 77 . . Stage 1 . . . . . . . Myoview Injected Stage 1 01:00 . . 96 . . . . Stage 2 01:00 . . 98 . 133/ 65 . . Stage 3 01:00 . . 96 . 144/ 64 . . Stage 4 01:00 . . 91 . 144/ 77 . . Stage 4 01:01 . . 91 . 144/ 77 . Stop exercise at 04:01 RECOVERY 01:00 . . 85 . . . . RECOVERY 02:00 . . 84 . 142/ 66 . . RECOVERY 03:00 . . 85 . 142/ 66 . . RECOVERY 04:00 . . 85 . 151/ 64 . . RECOVERY 04:02 . . 85 . 151/ 64 . . Electronically signed by : Tye Smith, 12/11/2019 19:26:13
--- NOTE | 2019-12-11 06:14 | NM_ITS ---
APPROVED REPORT Exam: Nuclear Stress Test Indication: Chest pain, SOB, HTN, CABG, CAD, DM, High cholesterol, Family history, Pacemaker, Hx of CT Patient Location: Outpatient Stress Tech: Patricia RamStrum [place] Tech:Julia Duncan, ARRT, RT (R)(N) Ht: 5 ft 0 in Wt: 157 lbs Bra Size: 42B HR: 65 bpm BP: 179/77 mmHg BSA: 1.68 m2 History: Chest pain, SOB, HTN, CABG, CAD, DM, High cholesterol, Family history, Pacemaker, Hx of CT Procedure: Patient received a 0.4 mg of intravenous Lexiscan, resting heart rate 65 bpm, resting blood pressure 179/77 mmHg, with Lexiscan maximum heart rate achived was 98 bpm which is Less than 85 % of the maximum predicted heart rate and blood pressure was 133/65 mmHg. With Lexiscan, patient denied any complaint of chest pain. Electrocardiogram Resting electrocardiogram showed electronically paced rhythm. With Lexiscan there is less than 1.[address] segment depression noted from the baseline EKG. The EKG portion of the Lexiscan Myoview is nondiagnostic. Cardiac Stress and Resting SPECT Images: Cardiac Stress and Resting SPECT images were obtained using technetium 99m Myoview 32.3 mCi stress and 10.36 mCi at rest. Gated SPECT with analysis of segmental wall motion and calculation of the ejection fraction also done. Cardiac stress and resting SPECT images show a fixed defect in the apex is likely secondary to apical thinning, no reversible ischemia seen. Completed her ejection fraction is over 65% with no regional wall motion abnormality, right ventricle is normal size and contractility. Conclusion: 1. The EKG portion of the Lexiscan Myoview is nondiagnostic. 2. No scintigraphic evidence of reversible ischemia seen, a fixed defect at the apex is likely secondary to apical thinning, computer ejection fraction is over 65% with no regional wall motion abnormality, recommendation is normal size and contractility. 3. Likely normal Lexiscan Myoview study. Electronically signed by : Tye Smith, 12/11/2019 19:28:54
--- NOTE | 2019-12-11 07:22 | HMH.ITSHM ---
Current Home Medications as stated by this patient Sharron Oconnor or field representative. []VENLAFAXINE QUETIAPINE OMEPRAZOLE NITRO METOPROLOL METFORMIN LORATADINE ISOSORBIDE GLIMEPIRIDE GABAPENTIN FUROSEMIDE IRON ENALAPRIL DIAZEPAM VITAMIN D3 ATORVASTATIN ASA
== END ==
PROVIDERS: PCP Family Medicine; Visit Provider Internal Medicine Cardiovascular Disease
DX: E78.5 Hyperlipidemia, unspecified (principal); I11.9 Hypertensive heart disease without heart failure; Z95.0 Presence of cardiac pacemaker; Z95.1 Presence of aortocoronary bypass graft; Z95.2 Presence of prosthetic heart valve; Z95.3 Presence of xenogenic heart valve; I20.8 Other forms of angina pectoris; I65.23 Occlusion and stenosis of bilateral carotid arteries
CPT/HCPCS: 78452; 93017; A9502; J2785

== ENCOUNTER → 2019-12-22 10:02 | Outpatient (CLI) | payer MEDICARE, OTHER, SELFPAY ==
--- NOTE | 2019-12-22 10:03 | CA_ITS ---
APPROVED REPORT EXAM: Comprehensive 2D, Doppler, and color-flow Echocardiogram Mining Consultant: Kathleen Cook RDCS Ht: 5 ft 0 in Wt: 158lbs BSA: 1.69 BP: 110/60 mmHg Indications: SOA,CAD,AVR 2D Dimensions LVOT 1.42 cm (M/F) 1.5-2.5 M-Mode Dimensions RVDd 2.40 cm (0.9-2.6) LVDd 5.61 cm (3.5-5.7) LVDs 4.78 cm (3.5-5.7) IVSd 0.79 cm (0.6-1.1) PWd 0.72 cm (0.6-1.1) EF (Teich) 31.00% FS 14.80% EDV (Teich) 154.30 mL ESV (Teich) 106.50 mL LV Diastology E/A Ratio 0.82 Aortic Valve LVOT Max 106.00 (70-110 cm/s) LVOT VTI 24.03 cm Mitral Valve MV A Velocity 113.00 (40-130 cm/s) Left Ventricle Left atrium is moderately enlarged, left ventricle is normal size, mild concentric left ventricular hypertrophy, visually estimated ejection fraction 55%, there is no regional wall motion abnormality, there is abnormal septal motion. Grade 1 diastolic dysfunction seen with tissue Doppler evidence of raise left atrial pressure. Right Ventricle Right atrium and right ventricular normal size and contractility, there is a pacemaker lead seen in right atrium and right ventricle. Aortic Valve There is a bioprosthetic valve noted in the aortic position. Valve is well-seated. The gradient across the aortic valve is within acceptable range. There is no aortic insufficiency. Mitral Valve Mitral valve has mitral annular calcification, leaflets are minimally thickened, there is no mitral stenosis, there is mild mitral regurgitation. Tricuspid Valve Tricuspid valve is grossly normal, there is mild tricuspid regurgitation, tricuspid regurgitation jet velocity is inadequate for calculation of the right ventricular systolic pressure. Pulmonic Valve Pulmonic valve is poorly visualized. Great Vessels Aortic root is normal size. Pericardium No significant pericardial effusion noted. Conclusion 1. Moderately enlarged left atrium, normal left ventricular size, mild concentric left ventricular hypertrophy, visually estimated ejection fraction is 55% with no regional wall motion abnormality, grade 1 diastolic dysfunction seen with tissue Doppler evidence of raise left atrial pressure. 2. Normal functioning bioprosthetic valve in the aortic position 3. Mild mitral and tricuspid regurgitation. 4. 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 5. No significant pericardial effusion noted Electronically signed by : Tye Smith, 12/22/2019 11:42:08
[2019-12-22 12:10] LABS: NT Pro Brain Natriuretic Pep. 988 pg/mL (0-125)
== END ==
PROVIDERS: PCP Family Medicine; Visit Provider Internal Medicine Cardiovascular Disease
DX: E78.5 Hyperlipidemia, unspecified (principal); I11.9 Hypertensive heart disease without heart failure; I20.9 Angina pectoris, unspecified; I65.29 Occlusion and stenosis of unspecified carotid artery; R06.00 Dyspnea, unspecified; Z95.0 Presence of cardiac pacemaker; Z95.1 Presence of aortocoronary bypass graft; Z95.2 Presence of prosthetic heart valve; Z95.3 Presence of xenogenic heart valve
CPT/HCPCS: 36415; 83880; 93306

== ENCOUNTER → 2019-12-29 07:29 | Outpatient (CLI) | payer MEDICARE, OTHER, SELFPAY ==
[2019-12-29 08:02] LABS: Basophils % 0.8 % (0.1-2.0); Eosinophils # 0.1 K/mm3 (0.0-0.4); Eosinophils % 1.9 % (0.1-12.0); Hematocrit 34.1 % (37.0-47.0); Hemoglobin 11.9 g/dL (12.2-16.2); Lymphocytes # 1.5 K/mm3 (0.7-4.5); Lymphocytes % 28.1 % (10-50); Mean Corpuscular HGB Conc 34.8 g/dL (31.8-35.4); Mean Corpuscular Hemoglobin 32.3 pg (27.0-31.2); Mean Corpuscular Volume 92.7 fl (81-99); Mean Platelet Volume 8.1 fl (7.4-10.4); Monocytes # 0.4 K/mm3 (0.1-1.0); Monocytes % 7.1 % (1.7-9.3); Neutrophils # 3.3 K/mm3 (1.8-7.8); Platelet Count 222 K/mm3 (142-424); Red Blood Count 3.68 M/mm3 (4.20-5.40); Red Cell Distribution Width 14.6 % (11.5-17.5); White Blood Count 5.3 K/mm3 (4.8-10.8)
[2019-12-29 09:45] LABS: Alanine Aminotransferase 49 U/L (12-78); Albumin Level 4.7 g/dl (3.5-5.0); Albumin/Globulin Ratio 1.9 (1.1-1.8); Alkaline Phosphatase 117 U/L (38-126); Anion Gap 14.8 mEq/L (5-15); Aspartate Amino Transferase 43 U/L (14-36); Bilirubin,Total 0.4 mg/dl (0.2-1.3); Blood Urea Nitrogen 29 mg/dl (7-17); Calcium 10.4 mg/dl (8.4-10.2); Carbon Dioxide 26 mmol/L (22.0-30.0); Chloride 99 mmol/L (98-107); Chol/HDL Ratio 3.5 (1-3.5); Cholesterol 201 mg/dl (140-200); Estimated Glomerular Filt Rate 71 ml/min (>60); GFR (African American) 86 ML/MIN (>60); Globulin 2.5 g/dL (1.3-3.2); Glucose 165 mg/dl (74-100); HDL Cholesterol 57 mg/dl (40-60); Iron 106 ug/dL (37-170); Potassium 4.8 mmoL/L (3.5-5.1); Sodium 135 mmol/L (136-145); Total Protein,Serum 7.2 g/dl (6.3-8.2); Triglycerides 389 mg/dl (30-150); VLDL Cholesterol 78 mg/dL (0-40)
[2019-12-29 09:46] LABS: Anion Gap 13.8 mEq/L (5-15); Blood Urea Nitrogen 28 mg/dl (7-17); Calcium 10.4 mg/dl (8.4-10.2); Carbon Dioxide 27 mmol/L (22.0-30.0); Chloride 99 mmol/L (98-107); Estimated Glomerular Filt Rate 71 ml/min (>60); GFR (African American) 86 ML/MIN (>60); Glucose 164 mg/dl (74-100); Potassium 4.8 mmoL/L (3.5-5.1); Sodium 135 mmol/L (136-145)
[2019-12-29 09:53] LABS: NT Pro Brain Natriuretic Pep. 454 pg/mL (0-125)
[2019-12-29 09:56] LABS: Direct LDL Cholesterol 95.86 mg/dL (100-129)
[2019-12-29 10:02] LABS: Hemoglobin A1C 7.3 % (4.0-6.0)
[2019-12-29 10:47] LABS: Total Iron Binding Capacity 250 ug/dL (265-497)
[2019-12-29 13:03] LABS: Ferritin 1840 ng/ml (11.1-264)
== END ==
PROVIDERS: PCP Physician Assistant; Visit Provider Internal Medicine Cardiovascular Disease
DX: E78.5 Hyperlipidemia, unspecified (principal); I11.9 Hypertensive heart disease without heart failure; I20.9 Angina pectoris, unspecified; Z95.0 Presence of cardiac pacemaker; Z95.1 Presence of aortocoronary bypass graft; Z95.2 Presence of prosthetic heart valve; Z95.3 Presence of xenogenic heart valve; I50.9 Heart failure, unspecified; I65.23 Occlusion and stenosis of bilateral carotid arteries
CPT/HCPCS: 36415; 80048; 80053; 80061; 82728; 83036; 83540; 83550; 83880; 85025

== ENCOUNTER → 2020-03-06 15:26 | Outpatient (CLI) | payer MEDICARE, OTHER, SELFPAY ==
[2020-03-08 13:16] LABS: Covid-19 Nasal PCR Sendout Lex Not Detected
== END ==
PROVIDERS: PCP Family Medicine; Visit Provider Nurse Practitioner
DX: Z03.818 Encounter for observation for suspected exposure to other biological agents ruled out (principal)
CPT/HCPCS: U0004

== ENCOUNTER → 2020-04-18 15:33 | Outpatient (CLI) | payer MEDICARE, OTHER, SELFPAY ==
[2020-04-18 16:13] LABS: Basophils % 0.6 % (0.1-2.0); Eosinophils # 0.1 K/mm3 (0.0-0.4); Hematocrit 36.2 % (37.0-47.0); Hemoglobin 11.1 g/dL (12.2-16.2); Lymphocytes # 1.6 K/mm3 (0.7-4.5); Lymphocytes % 22.8 % (10-50); Mean Corpuscular HGB Conc 30.8 g/dL (31.8-35.4); Mean Corpuscular Hemoglobin 29.2 pg (27.0-31.2); Mean Corpuscular Volume 94.9 fl (81-99); Mean Platelet Volume 7.9 fl (7.4-10.4); Monocytes # 0.7 K/mm3 (0.1-1.0); Monocytes % 9.4 % (1.7-9.3); Neutrophils # 4.5 K/mm3 (1.8-7.8); Neutrophils % 65.1 % (37.0-80.0); Platelet Count 257 K/mm3 (142-424); Red Blood Count 3.81 M/mm3 (4.20-5.40); Red Cell Distribution Width 14.9 % (11.5-17.5); White Blood Count 6.9 K/mm3 (4.8-10.8)
[2020-04-18 17:35] LABS: Chloride 100 mmol/L (98-107); Potassium 4.6 mmoL/L (3.5-5.1); Sodium 138 mmol/L (136-145)
[2020-04-18 17:38] LABS: Alanine Aminotransferase 81 U/L (12-78); Albumin Level 4.6 g/dl (3.5-5.0); Albumin/Globulin Ratio 1.8 (1.1-1.8); Alkaline Phosphatase 129 U/L (38-126); Anion Gap 13.6 mEq/L (5-15); Aspartate Amino Transferase 66 U/L (14-36); Bilirubin,Total 0.6 mg/dl (0.2-1.3); Blood Urea Nitrogen 14 mg/dl (7-17); Calcium 9.9 mg/dl (8.4-10.2); Carbon Dioxide 29 mmol/L (22.0-30.0); Estimated Glomerular Filt Rate 71 ml/min (>60); GFR (African American) 86 ML/MIN (>60); Globulin 2.5 g/dL (1.3-3.2); Glucose 90 mg/dl (74-100); Iron 76 ug/dL (37-170); Total Protein,Serum 7.1 g/dl (6.3-8.2)
[2020-04-18 17:47] LABS: Total Iron Binding Capacity 247 ug/dL (265-497)
[2020-04-18 19:19] LABS: Ferritin 2660 ng/ml (11.1-264)
== END ==
PROVIDERS: Visit Provider Internal Medicine Medical Oncology
DX: D64.9 Anemia, unspecified (principal)
CPT/HCPCS: 36415; 80053; 82728; 83540; 83550; 85025

== ENCOUNTER → 2020-04-25 15:26 | Outpatient (CLI) | payer MEDICARE, OTHER, SELFPAY ==
[2020-04-25 17:04] LABS: Alanine Aminotransferase 62 U/L (12-78); Albumin Level 4.4 g/dl (3.5-5.0); Alkaline Phosphatase 137 U/L (38-126); Aspartate Amino Transferase 69 U/L (14-36); Bilirubin,Direct 0.1 mg/dl (0.0-0.4); Bilirubin,Indirect 0.3 mg/dL (0.0-0.9); Bilirubin,Total 0.4 mg/dl (0.2-1.3); Bilirubin,Unconjugated 0.4 mg/dL (0.0-1.1); Lactate Dehydrogenase 209 U/L (313-618)
[2020-04-25 19:48] LABS: Ferritin 2480 ng/ml (11.1-264)
[2020-04-27 10:17] LABS: Hep A Ab, IgM Negative (Negative); Hepatitis B Core Antibody IgM Negative (Negative); Hepatitis B Surface Antigen Negative (Negative)
[2020-04-27 10:27] LABS: Haptoglobin 233 mg/dL (42-346); Hepatitis C Antibody <0.1 s/co ratio (0.0-0.9)
== END ==
PROVIDERS: Visit Provider Internal Medicine Medical Oncology
DX: D64.9 Anemia, unspecified (principal); Z79.899 Other long term (current) drug therapy; R94.5 Abnormal results of liver function studies
CPT/HCPCS: 36415; 80074; 80076; 81256; 82728; 83010; 83615

== ENCOUNTER → 2020-05-02 08:52 | Outpatient (CLI) | payer MEDICARE, OTHER, SELFPAY ==
--- NOTE | 2020-05-02 08:57 | CT_ITS ---
PROCEDURE: CT ABDOMEN PELVIS W CON CLINICAL INDICATION: ANEMIA Anemia with elevated liver enzymes COMPARISON: CT ABDPELW CT ABD PELVIS W/ CONTRAST from 11/08/[address] chest wo con from 05/19/2018 TECHNIQUE: IV Contrast: 75ML OPTIRAY 350 Oral Contrast None Axial images obtained with sagittal and coronal reformats. All CT scans at the facility use one or more dose reduction, viz: automated exposure control, ma/kV adjustment per patient size (including targeted exams where dose is matched to indication, i.e. head), or iterative reconstruction technique. FINDINGS: LOWER THORAX: There is a cluster of small nodules in the right middle lobe which are nonspecific but have developed since an older chest CT of 05/02/2020. On that exam there was a small cluster of nodules in the right middle lobe laterally. At that area now there is some minimal linear density noted. Small subpleural nodules present in the right lower lobe anteriorly at 4 mm. Calcified nodules present in the left lower lobe posteriorly. There is a small hiatal hernia with thickened GE junction. Prior median sternotomy with aortic valve replacement. ABDOMEN & PELVIS: 2 areas of decreased attenuation are present in the right hepatic lobe measuring 1 cm and 2.5 cm. The largest areas posterior and peripheral with some volume loss of the liver at that level. Small focus of calcification is present laterally at that region. These are somewhat less apparent compared to 11/08/2015. Possibly due to hemangiomas. There postsurgical changes of the anterior abdominal wall with mesh noted. The adrenal glands are unremarkable. There is mild diffuse fatty replacement of the pancreas. Atherosclerotic calcification involves the aorta. There are post hysterectomy changes. No intestinal obstruction or free air. There are surgical clips in the right lower quadrant with surgical clips and sutures at the ileocecal region. Prior appendectomy. There is colonic diverticulosis but no evidence of diverticulitis. Mild degenerative changes lumbar spine. No acute bony findings. IMPRESSION: 1. Two hypodense hepatic lesions which are unchanged is somewhat less apparent possibly due to hemangiomas. No new liver lesions evident. 2. Nodular opacities are present in the right middle lobe. There is 1 new cluster of small nodules and another area with a nodules have decreased in size. Dedicated CT chest may provide further evaluation. 3. Other nonacute findings as described above Dictated by: Arnold Muse MD 05/03/2020 13:11 Arnold Muse MD in [place] 05/03/2020 13:11
== END ==
PROVIDERS: PCP Family Medicine; Visit Provider Internal Medicine Medical Oncology
DX: D64.9 Anemia, unspecified (principal); R94.5 Abnormal results of liver function studies
CPT/HCPCS: 74177; Q9967

== ENCOUNTER → 2020-06-04 12:39 | Outpatient (CLI) | payer MEDICARE, OTHER, SELFPAY ==
--- NOTE | 2020-06-04 13:16 | CT_ITS ---
PROCEDURE: CT CHEST WO/W CON CLINCAL INDICATION: pulmonary nodule Follow-up pulmonary nodule COMPARISON: CT CHESTWO CT chest wo con from 05/19/[address] ABDOMEN PELVIS W CON from 05/02/2020 TECHNIQUE: IV Contrast: 75ml Isovue 370 Axial images obtained with sagittal and coronal reformats. All CT scans at the facility use one or more dose reduction, viz: automated exposure control, ma/kV adjustment per patient size (including targeted exams where dose is matched to indication, i.e. head), or iterative reconstruction technique. FINDINGS: HEART AND MEDIASTINAL STRUCTURES: There has been a prior median sternotomy. No mediastinal or hilar mass or adenopathy. Coronary artery calcifications are present. Status post prior aortic valve replacement. There is mild prominence of the ascending aorta measuring up to 3.6 cm in AP dimension not significantly changed. No evidence of aortic aneurysm or dissection. No evidence of central pulmonary embolus. The LUNGS AND PLEURAL SPACES: COPD changes. There is nodularity once again noted in the right middle lobe. The in the central aspect of the right middle lobe there is a 9 x 5 mm nodular density and in the peripheral aspect of the right middle lobe anteriorly there is a cluster of small nodules. The largest nodule in this cluster measures 6 mm. This nodule is more prominent and more well-defined compared to the previous exam. This peripheral cluster of nodules was not present on the previous CT of the chest of 05/19/2018 and is slightly more prominent than when compared to the abdomen CT of 05/02/2020. There is a small subpleural nodule in the right middle lobe laterally and posteriorly at 5 mm and appears slightly more prominent compared to the 05/02/2020. There is a calcified granuloma in the left lower lobe. On the previous chest CT there was a nodular area in the right upper lobe with adjacent to the minor fissure which is not apparent on today's exam. There is some mild linear density noted in the subpleural region of the right middle lobe not significantly changed. There is a small hiatal hernia. Artifact is present from pacemaker. BONY STRUCTURES: No acute bony abnormalities apparent. UPPER ABDOMEN: There is thickening of the distal esophagus and gastroesophageal junction. Neoplasm or esophagitis is considered in the differential diagnosis. Barium swallow or upper endoscopy may provide further evaluation. The ADDITIONAL FINDINGS: No other significant abnormalities. IMPRESSION: 1. Slight increase in prominence of the nodular opacities in the right middle lobe centrally and anteriorly. This could be inflammatory or infectious in nature. Cannot exclude the possibility of neoplasm. These areas may be too small to be detected by PET scan and are too small for percutaneous CT directed biopsy. Continued follow-up is suggested in 3 months. Lateral right middle lobe nodule appears stable. 2. There is thickening of the distal esophagus and gastroesophageal junction. Neoplasm or esophagitis is considered in the differential diagnosis. Barium swallow or upper endoscopy may provide further evaluation. The 3. Small hiatal hernia Dictated by: Arnold Muse MD 06/07/2020 08:35 Arnold Muse MD in [facility] 06/07/2020 08:35
[2020-06-04 14:06] LABS: Blood Urea Nitrogen 14 mg/dl (7-17); Estimated Glomerular Filt Rate 71 ml/min (>60); GFR (African American) 86 ML/MIN (>60)
== END ==
PROVIDERS: PCP Family Medicine; Visit Provider Internal Medicine Medical Oncology
DX: R74.8 Abnormal levels of other serum enzymes (principal)
CPT/HCPCS: 36415; 71270; 82565; 84520; Q9967

== ENCOUNTER 2020-08-05 13:52 | Emergency (ER) | payer MEDICARE, OTHER, SELFPAY ==
[2020-08-05] VITALS (7 sets, daily range): BP systolic 143–204; BP diastolic 74–97; PULSE 77–87; RESP 14–16; TEMP 36.9–37; O2SAT 93–98
[2020-08-05 14:34] LABS: Microscopic, Urine URINE MICROSCOPIC (MICROSCOPIC)
[2020-08-05 14:35] LABS: Chloride 100 mmol/L (98-107); Potassium 4.7 mmoL/L (3.5-5.1); Sodium 136 mmol/L (136-145)
[2020-08-05 14:37] LABS: Basophils % 0.2 % (0.1-2.0); Blood Urea Nitrogen 15 mg/dl (7-17); Creatinine Clearance Estimated 57 mL/min (50-200); Eosinophils # 0.1 K/mm3 (0.0-0.4); Eosinophils % 0.5 % (0.1-12.0); Estimated Glomerular Filt Rate 71 ml/min (>60); GFR (African American) 86 ML/MIN (>60); Hematocrit 36.6 % (37.0-47.0); Hemoglobin 12.3 g/dL (12.2-16.2); Lymphocytes # 1.4 K/mm3 (0.7-4.5); Lymphocytes % 11.8 % (10-50); Mean Corpuscular HGB Conc 33.5 g/dL (31.8-35.4); Mean Corpuscular Hemoglobin 31.8 pg (27.0-31.2); Mean Platelet Volume 8.1 fl (7.4-10.4); Monocytes # 0.9 K/mm3 (0.1-1.0); Monocytes % 7.1 % (1.7-9.3); Neutrophils # 9.7 K/mm3 (1.8-7.8); Neutrophils % 80.4 % (37.0-80.0); Platelet Count 215 K/mm3 (142-424); Red Blood Count 3.85 M/mm3 (4.20-5.40); Red Cell Distribution Width 14.9 % (11.5-17.5); White Blood Count 12.1 K/mm3 (4.8-10.8)
[2020-08-05 14:37] LABS: Appearance,Urine CLEAR (Clear); Bilirubin,Urine Negative (Negative); Blood, Urine TRACE-I (Negative); Color,Urine YELLOW (Yellow); Glucose,Urine (UA) Negative (Negative); Ketones,Urine Negative (Negative); Leukocyte Esterase,Urine Negative (Negative); Nitrate,Urine Negative (Negative); Protein,Urine Negative (Negative); Specific Gravity, Urine <= 1.005 (1.005-1.030); Urobilinogen,Urine 0.2 EU/dl (0.2)
[2020-08-05 14:38] LABS: Alanine Aminotransferase 62 U/L (12-78); Albumin Level 4.7 g/dl (3.5-5.0); Albumin/Globulin Ratio 1.5 (1.1-1.8); Alkaline Phosphatase 111 U/L (38-126); Anion Gap 16.7 mEq/L (5-15); Aspartate Amino Transferase 39 U/L (14-36); Bilirubin,Total 0.4 mg/dl (0.2-1.3); Calcium 10.6 mg/dl (8.4-10.2); Carbon Dioxide 24 mmol/L (22.0-30.0); Globulin 3.2 g/dL (1.3-3.2); Glucose 179 mg/dl (74-100); Total Protein,Serum 7.9 g/dl (6.3-8.2)
--- NOTE | 2020-08-05 15:31 | CT_ITS ---
PROCEDURE: CT ABDOMEN PELVIS WO CON CLINICAL INDICATION: pain Lower abdominal pain COMPARISON: CT CT ABDOMEN PELVIS W CON from 05/02/2020 TECHNIQUE: Axial images obtained with sagittal and coronal reformats. All CT scans at the facility use one or more dose reduction, viz: automated exposure control, ma/kV adjustment per patient size (including targeted exams where dose is matched to indication, i.e. head), or iterative reconstruction technique. FINDINGS: LOWER THORAX: There is a 4 mm noncalcified nodule in the right middle lobe and some mild nodularity/fibrotic change in the right middle lobe anteriorly. These areas do not appear significantly changed. 3 mm subpleural nodule right lower lobe laterally calcified subpleural nodule left lower lobe are unchanged. Moderate-sized hiatal hernia ABDOMEN & PELVIS: Fatty liver. Subtle hypodensity right hepatic lobe posteriorly is less apparent without contrast with a small calcification in this area and some cortical scarring. The spleen and adrenal glands are unremarkable. Diffuse pancreatic fatty infiltration is noted. No renal or ureteral calculi. No intestinal obstruction or free air. Prior appendectomy with appendiceal stump Colonic diverticulosis. There is thickening of the sigmoid colon with some stranding of the pericolic fat which may reflect diverticulitis. There is a nodular soft tissue density in this region measuring 18 mm possibly due to small lymph node or fluid collection. Repeat exam with IV contrast may provide further evaluation. No obvious abscess. No free air. No acute bony findings. IMPRESSION: 1. Findings are most worrisome for diverticulitis of the sigmoid colon. There is diffuse colonic diverticulosis. No obvious abscess or free air. There is a nodular opacity adjacent to the area of thickened sigmoid colon which could be due to small lymph node or small fluid collection. Convalescent follow-up exam with IV and oral contrast suggested. 2. Diffuse fatty liver with hiatal hernia, fatty infiltration of the pancreas, and small subcortical hepatic hypodensity posteriorly with calcification Dictated by: Arnold Muse MD 08/05/2020 16:13 Arnold Muse MD in [place] 08/05/2020 16:13
--- NOTE | 2020-08-05 15:39 | PC.NURSE ---
patient to ct at this [facility]
--- NOTE | 2020-08-05 15:56 | PC.NURSE ---
patient back from ct
--- NOTE | 2020-08-05 16:54 | HMH.EDGENADL ---
ED Disposition Clinical Impression: Acute diverticulitis Disposition: Home, Self-Care Condition on Discharge: Good Instructions: DI for Diverticulitis Prescriptions: Amoxicillin/Potassium Clav [Amox-Clav 875-125 mg Tablet] 1 tab PO Q8 #21 tab Transmission Status: Pending to [facility] Referrals: Monisha Peguero MD [Primary Care Provider] - - Critical Care Critical Care Time: No Attestation: On 08/05/20, the high probability of a clinically significant, sudden or life threatening deterioration of the following system(s) required my full and direct attention, intervention and personal management. The time I documented below is in addition to time spent performing reported procedures but includes the following listed in this critical care notation. Medical Decision Making - Medical Records Medical records reviewed: Yes: I reviewed the patient's medical records. - Chet Inquiry Pt receiving controlled substance: No Vital Signs: 08/05/20 13:53 08/05/20 14:46 08/05/20 15:00 Temperature 98.5 F Temperature Source Oral Pulse Rate [Right Radial] 84 77 Respiratory Rate 16 Blood Pressure [Right Arm] 204/94 H 186/97 H 150/89 H Blood Pressure Mean [Right Arm] 130 126 109 Blood Pressure Source [Right Arm] Automatic Cuff Blood Pressure Position [Right Arm] Sitting Supine 02 Sat by Pulse Oximetry 98 94 L 98 Oxygen Delivery Method Room Air Room Air 08/05/20 15:30 08/05/20 16:00 08/05/20 16:30 Temperature Temperature Source Pulse Rate [Right Radial] 79 83 87 Respiratory Rate 15 Blood Pressure [Right Arm] 151/84 H 143/74 H 158/89 H Blood Pressure Mean [Right Arm] 106 97 112 Blood Pressure Source [Right Arm] Blood Pressure Position [Right Arm] 02 Sat by Pulse Oximetry 97 93 L 95 Oxygen Delivery Method - Lab Data Lab Results 08/05/20 14:18: WBC 12.1 H, RBC 3.85 L, Hgb 12.3, Hct 36.6 L, MCV 95.0, MCH 31.8 H, MCHC 33.5, RDW 14.9, Plt Count 215, MPV 8.1, Neut % (Auto) 80.4 H, Lymph % (Auto) 11.8, [place] % (Auto) 7.1, Eos % (Auto) 0.5, Baso % (Auto) 0.2, Neut # (Auto) 9.7 H, Lymph # (Auto) 1.4, [place] # (Auto) 0.9, Eos # (Auto) 0.1, Baso # (Auto) 0.0 08/05/20 14:18: Sodium 136, Potassium 4.7, Chloride 100, Carbon Dioxide 24, Anion Gap 16.7 H, BUN 15, Creatinine 0.80, Estimated Creat Clear 57, Estimated GFR 71, Est GFR ( Amer) 86, Glucose 179 H, Calcium 10.6 H, Total Bilirubin 0.4, AST 39 H, ALT 62, Alkaline Phosphatase 111, Total Protein 7.9, Albumin 4.7, Globulin 3.2, Albumin/Globulin Ratio 1.5 08/05/20 14:26: Urine Color Yellow, Urine Appearance Clear, Urine pH 6.0, Ur Specific [place] <= 1.005, Urine Protein Negative, Urine Glucose (UA) Negative, Urine Ketones Negative, Urine Blood Trace-i, Urine Nitrate Negative, Urine Bilirubin Negative, Urine Urobilinogen 0.2, Ur Leukocyte Esterase Negative, Urine WBC 5-10, Ur Squamous Epith Cells 5-10 Result diagrams: 08/05/20 14:18 08/05/20 14:18 Orders (Tests/Meds): ED MEDICATIONS Discontinued Medications Generic Name Dose Route Start Last Admin Trade Name Freq PRN Reason Stop Dose Admin Belladonna Alkaloids 60 ml 08/05/20 15:32 08/05/20 16:00 Gi Cocktail 60ml Udc PO 08/05/20 15:33 60 ml ONCE ONE Administration - CT Data CT Scan: Abdomen, Pelvis Time Received: 16:[address] Reviewed: Yes: I have reviewed the patient's CT results, I have viewed the radiologist's interpretation Findings Narrative: IMPRESSION: 1. Findings are most worrisome for diverticulitis of the sigmoid colon. There is diffuse colonic diverticulosis. No obvious abscess or free air. There is a nodular opacity adjacent to the area of thickened sigmoid colon which could be due to small lymph node or small fluid collection. Convalescent follow-up exam with IV and oral contrast suggested. 2. Diffuse fatty liver with hiatal hernia, fatty infiltration of the pancreas, and small subcortical hepatic hypodensity
== END 2020-08-05 17:14 | disposition home or self-care (01) ==
PROVIDERS: Emergency Provider Emergency Medicine; PCP Family Medicine
DX: K57.92 Diverticulitis of intestine, part unspecified, without perforation or abscess without bleeding (principal); I25.2 Old myocardial infarction; I10 Essential (primary) hypertension; E78.5 Hyperlipidemia, unspecified; I50.9 Heart failure, unspecified; E11.9 Type 2 diabetes mellitus without complications; K21.9 Gastro-esophageal reflux disease without esophagitis; Z79.899 Other long term (current) drug therapy; Z88.5 Allergy status to narcotic agent
CPT/HCPCS: 74176; 80053; 81001; 85025; 99284

== ENCOUNTER 2020-09-26 20:40 | Emergency (ER) | payer MEDICARE, OTHER, SELFPAY ==
[2020-09-26] VITALS (9 sets, daily range): BP systolic 132–176; BP diastolic 60–84; PULSE 66–74; RESP 20; TEMP 36.7; O2SAT 92–97; BMI 32.8
--- NOTE | 2020-09-26 21:05 | CT_ITS ---
PROCEDURE: CT ABDOMEN PELVIS W CON CLINICAL INDICATION: LLQ ABD pain, history of diverticulitis COMPARISON: CT ABDPELW CT ABD PELVIS W/ CONTRAST from 11/08/[address] ABDOMEN PELVIS WO CON from 08/05/2020 TECHNIQUE: IV Contrast: 75ML Isovue 370 Oral Contrast None Axial images obtained with sagittal and coronal reformats. All CT scans at the facility use one or more dose reduction, viz: automated exposure control, ma/kV adjustment per patient size (including targeted exams where dose is matched to indication, i.e. head), or iterative reconstruction technique. FINDINGS: LOWER THORAX: There is a faint nodular opacity in right upper lobe laterally 4 mm probably unchanged.. Atelectatic or fibrotic changes are present in the right middle lobe ABDOMEN & PELVIS: There is a small to medium-sized hiatal hernia. There is fatty infiltration of the liver. Along the posterior aspect of the right hepatic lobe there are three areas of decreased attenuation the largest of which measures 2.4 cm with a peripheral calcification. The other area measures approximately 10 mm and the additional region measures 1.3 cm with peripheral enhancement.. These areas are not significantly changed compared to 11/08/2015. Gallbladder is contracted. Spleen and adrenal glands are unremarkable. There is fatty infiltration of the pancreas. No renal or ureteral calculi. No hydronephrosis. The appendix is not identified. There is surgical clips in the right lower quadrant suggestive of prior appendectomy. There is focal thickening of the distal descending colon in the left lower quadrant with stranding of the pericolic fat consistent with acute diverticulitis. No abscess or perforation apparent. Colonic diverticulosis. There is mild thickening of the colon at the region of the ileocecal valve and hepatic flexure nonspecific possibly related to peristalsis There are degenerative changes of the lumbar spine. IMPRESSION: 1. Findings compatible with colonic diverticulosis with acute diverticulitis of the distal descending colon. No evidence of abscess or perforation. Cannot exclude underlying malignancy at this region. Therefore, convalescent follow-up is suggested 2. Fatty liver with stable hypodense liver lesions 3. Hiatal hernia and other nonacute findings as described above Dictated by: Arnold Muse MD 09/27/2020 09:07 Arnold Muse MD in [place] 09/27/2020 09:07
--- NOTE | 2020-09-26 21:10 | HMH.EDNVD ---
ED Disposition Clinical Impression: Diverticulitis Disposition: Home, Self-Care Condition on Discharge: Good Instructions: DI for Diverticulitis Additional Instructions: fluids and use meds and see pcp for follow up Prescriptions: levoFLOXacin [Levaquin 500mg tab] 500 mg PO DAILY #10 tab Prescription Printed metroNIDAZOLE [metroNIDAZOLE 500mg Tablet] 500 mg PO TID #30 tab Prescription Printed Ketorolac Tromethamine [Toradol 10mg tablet] 10 mg PO Q6H 3 Days #12 tab Prescription Printed Referrals: Monisha Peguero MD [Primary Care Provider] - - Critical Care Critical Care Time: No Attestation: On 09/26/20, the high probability of a clinically significant, sudden or life threatening deterioration of the following system(s) required my full and direct attention, intervention and personal management. The time I documented below is in addition to time spent performing reported procedures but includes the following listed in this critical care notation. Medical Decision Making - Medical Records Medical records reviewed: Yes: I reviewed the patient's medical records. - Chet Inquiry Pt receiving controlled substance: No Vital Signs: 09/26/20 20:42 09/26/20 21:01 09/26/20 21:29 Temperature 98.1 F Temperature Source Oral Pulse Rate 69 66 Pulse Rate [Right Brachial] 74 Respiratory Rate 20 Blood Pressure Blood Pressure [Right Arm] 176/84 H Blood Pressure Mean Blood Pressure Mean [Right Arm] 114 Blood Pressure Source [Right Arm] Automatic Cuff 02 Sat by Pulse Oximetry 97 96 93 L Oxygen Delivery Method Room Air 09/26/20 21:30 09/26/20 21:31 Temperature Temperature Source Pulse Rate 67 Pulse Rate [Right Brachial] Respiratory Rate Blood Pressure 142/62 H Blood Pressure [Right Arm] Blood Pressure Mean 88 Blood Pressure Mean [Right Arm] Blood Pressure Source [Right Arm] 02 Sat by Pulse Oximetry 93 L Oxygen Delivery Method - Lab Data Lab results reviewed: Yes: I reviewed the patient's lab results. Lab Results 09/26/20 20:50: WBC 13.5 H, RBC 3.75 L, Hgb 11.7 L, Hct 35.7 L, MCV 95.2, MCH 31.1, MCHC 32.7, RDW 14.8, Plt Count 235, MPV 7.7, Neut % (Auto) 75.1, Lymph % (Auto) 16.0, [place] % (Auto) 7.2, Eos % (Auto) 1.3, Baso % (Auto) 0.4, Neut # (Auto) 10.1 H, Lymph # (Auto) 2.2, [place] # (Auto) 1.0, Eos # (Auto) 0.2, Baso # (Auto) 0.1, ESR 36 H 09/26/20 20:50: Sodium 140, Potassium 4.2, Chloride 103, Carbon Dioxide 30, Anion Gap 11.2, BUN 15, Creatinine 0.90, Estimated Creat Clear 62, Estimated GFR 62, Est GFR ( Amer) 75, Glucose 122 H, Calcium 10.1, Total Bilirubin 0.4, Direct Bilirubin 0.2, Conjugated Bilirubin 0.0, Indirect Bilirubin 0.2, Unconjugated Bilirubin 0.2, AST 62 H, ALT 77, Alkaline Phosphatase 121, C-Reactive Protein 46.7 H, Total Protein 7.5, Albumin 4.7, Globulin 2.8, Albumin/Globulin Ratio 1.7, Amylase 65, Lipase 30, Procalcitonin 0.161 09/26/20 23:55: Urine Color Yellow, Urine Appearance Clear, Urine pH 6.0, Ur Specific [place] <= 1.005, Urine Protein Negative, Urine Glucose (UA) Negative, Urine Ketones Negative, Urine Blood Trace-i, Urine Nitrate Negative, Urine Bilirubin Negative, Urine Urobilinogen 0.2, Ur Leukocyte Esterase Negative Result diagrams: 09/26/20 20:50 09/26/20 20:50 Orders (Tests/Meds): ED MEDICATIONS Generic Name Dose Route Start Last Admin Trade Name Freq PRN Reason Stop Dose Admin Sodium Chloride 1,000 mls @ 999 mls/hr 09/26/20 21:15 09/26/20 21:13 Sod Chlor 0.9% 1000ml Bag IV 09/26/20 22:15 999 mls/hr .Q1H1M SALE[place] Administration Discontinued Medications Generic Name Dose Route Start Last Admin Trade Name Freq PRN Reason Stop Dose Admin Iopamidol 75 ml 09/26/20 22:05 09/26/20 22:06 Iopamidol-370 (76%);100ml Bottle IV 09/26/20 22:06 75 ml ONCE ONE Administration Ketorolac Tromethamine 30 mg 09/26/20 21:12 09/26/20 21:13 Ketorolac 30mg/Ml Vial IV 09/26/20 21:13 3
[2020-09-26 21:16] LABS: Basophils # 0.1 K/mm3 (0-0.2); Basophils % 0.4 % (0.1-2.0); Chloride 103 mmol/L (98-107); Eosinophils # 0.2 K/mm3 (0.0-0.4); Eosinophils % 1.3 % (0.1-12.0); Hematocrit 35.7 % (37.0-47.0); Hemoglobin 11.7 g/dL (12.2-16.2); Lymphocytes # 2.2 K/mm3 (0.7-4.5); Mean Corpuscular HGB Conc 32.7 g/dL (31.8-35.4); Mean Corpuscular Hemoglobin 31.1 pg (27.0-31.2); Mean Corpuscular Volume 95.2 fl (81-99); Mean Platelet Volume 7.7 fl (7.4-10.4); Monocytes % 7.2 % (1.7-9.3); Neutrophils # 10.1 K/mm3 (1.8-7.8); Neutrophils % 75.1 % (37.0-80.0); Platelet Count 235 K/mm3 (142-424); Potassium 4.2 mmoL/L (3.5-5.1); Red Blood Count 3.75 M/mm3 (4.20-5.40); Red Cell Distribution Width 14.8 % (11.5-17.5); Sodium 140 mmol/L (136-145); White Blood Count 13.5 K/mm3 (4.8-10.8)
[2020-09-26 21:19] LABS: Alanine Aminotransferase 77 U/L (12-78); Albumin Level 4.7 g/dl (3.5-5.0); Albumin/Globulin Ratio 1.7 (1.1-1.8); Alkaline Phosphatase 121 U/L (38-126); Amylase 65 U/L (30-110); Anion Gap 11.2 mEq/L (5-15); Aspartate Amino Transferase 62 U/L (14-36); Bilirubin,Direct 0.2 mg/dl (0.0-0.4); Bilirubin,Indirect 0.2 mg/dL (0.0-0.9); Bilirubin,Total 0.4 mg/dl (0.2-1.3); Bilirubin,Unconjugated 0.2 mg/dL (0.0-1.1); Blood Urea Nitrogen 15 mg/dl (7-17); Calcium 10.1 mg/dl (8.4-10.2); Carbon Dioxide 30 mmol/L (22.0-30.0); Creatinine Clearance Estimated 62 mL/min (50-200); Estimated Glomerular Filt Rate 62 ml/min (>60); GFR (African American) 75 ML/MIN (>60); Globulin 2.8 g/dL (1.3-3.2); Glucose 122 mg/dl (74-100); Lipase 30 U/L (23-300); Total Protein,Serum 7.5 g/dl (6.3-8.2)
[2020-09-26 21:26] LABS: C-Reactive Protein 46.7 mg/L (0-4)
[2020-09-26 21:46] LABS: Procalcitonin 0.161 ng/mL (0.0-2.0)
[2020-09-26 22:10] LABS: Erythrocyte Sedimentation Rate 36 mm/hr (0-30)
[2020-09-26 23:27] LABS: Adenovirus,PCR Not Detected (NotDetected); Bordetella Pertussis Not Detected (NotDetected); Chlamydophila Pneumoniae, PCR Not Detected (NotDetected); Coronavirus 19, PCR Not Detected (NotDetected); Coronavirus 229E Not Detected (NotDetected); Coronavirus NL63 Not Detected (NotDetected); Coronavirus OC43 Not Detected (NotDetected); Coronovirus HKU1,PCR Not Detected (NotDetected); Human Metapneumovirus Not Detected (NotDetected); Influenza A, PCR Not Detected (NotDetected); Influenza AH1, 2009 Not Detected (NotDetected); Influenza AH1, PCR Not Detected (NotDetected); Influenza AH3,PCR Not Detected (NotDetected); Influenza B, PCR Not Detected (NotDetected); Mycoplasma Pneumoniae, PCR Not Detected (NotDetected); Parainfluenza 1, PCR Not Detected (NotDetected); Parainfluenza 2, PCR Not Detected (NotDetected); Parainfluenza 3, PCR Not Detected (NotDetected); Parainfluenza 4, PCR Not Detected (NotDetected); Respiratory Syncytial Virus Not Detected (NotDetected); Rhinovirus/Enterovirus Not Detected (NotDetected)
[2020-09-26 23:58] LABS: Microscopic, Urine URINE MICROSCOPIC (MICROSCOPIC)
[2020-09-26 23:59] LABS: Appearance,Urine CLEAR (Clear); Bilirubin,Urine Negative (Negative); Blood, Urine TRACE-I (Negative); Color,Urine YELLOW (Yellow); Glucose,Urine (UA) Negative (Negative); Ketones,Urine Negative (Negative); Leukocyte Esterase,Urine Negative (Negative); Nitrate,Urine Negative (Negative); Protein,Urine Negative (Negative); Specific Gravity, Urine <= 1.005 (1.005-1.030); Urobilinogen,Urine 0.2 EU/dl (0.2)
[2020-09-27 00:38] LABS: Bacteria,Urine Trace /lpf; WBC,Urine Occasional #/hpf (0-3)
[2020-09-27 00:49] VITALS: BP 149/79; PULSE 71; O2SAT 96
[2020-09-27 00:52] VITALS: BP 149/79; PULSE 78; RESP 20; TEMP 36.6; O2SAT 97
== END 2020-09-27 00:56 | disposition home or self-care (01) ==
PROVIDERS: Emergency Provider Emergency Medicine; PCP Family Medicine
DX: K57.92 Diverticulitis of intestine, part unspecified, without perforation or abscess without bleeding (principal); E11.9 Type 2 diabetes mellitus without complications; E78.5 Hyperlipidemia, unspecified; I50.9 Heart failure, unspecified; K21.9 Gastro-esophageal reflux disease without esophagitis; I10 Essential (primary) hypertension; Z79.899 Other long term (current) drug therapy; Z95.1 Presence of aortocoronary bypass graft; Z88.5 Allergy status to narcotic agent; Z88.8 Allergy status to other drugs, medicaments and biological substances
CPT/HCPCS: 74177; 80053; 80076; 81001; 82150; 83690; 84145; 85025; 85651; 86140; 87581; 87633; 87798; 96365; 96375; 99283; J2405; Q9967

== ENCOUNTER → 2020-10-15 12:54 | Outpatient (CLI) | payer MEDICARE, SELFPAY ==
--- NOTE | 2020-10-15 12:55 | CT_ITS ---
PROCEDURE: CT CHEST WO CON CLINICAL INDICATION: Follow up lung nodule Prior 06/04/20 COMPARISON: CT ABDPELW CT ABD PELVIS W/ CONTRAST from 11/08/[address] chest wo con from 05/19/[address] CHEST WO/W CON from 06/04/2020 TECHNIQUE: Axial images obtained with sagittal and coronal reformats. All CT scans at the facility use one or more dose reduction, viz: automated exposure control, ma/kV adjustment per patient size (including targeted exams where dose is matched to indication, i.e. head), or iterative reconstruction technique. FINDINGS: HEART AND MEDIASTINAL STRUCTURES: Prior CABG. Prior aortic valve replacement. No mediastinal or hilar mass evident. Nonspecific thickening noted of the esophagus. There is increased soft tissue density in the distal aspect of the esophagus. One cannot exclude an esophageal neoplasm. Suggest barium swallow or upper endoscopy for further evaluation. LUNGS AND PLEURAL SPACES: Right middle lobe nodular opacities are once again noted. The peripheral opacities appears somewhat less apparent. Nine mm nodule in the mid aspect of the right middle lobe. Noncalcified nodule left apex at 4 mm unchanged. Calcified granuloma left lower lobe. No lobar consolidation or collapse. BONY STRUCTURES: No acute bony abnormalities apparent. UPPER ABDOMEN: Hiatal hernia. Thickened distal esophagus with soft tissue density noted in the gastroesophageal junction. Suggest upper endoscopy or barium swallow to exclude underlying neoplasm. There postsurgical changes of the ventral abdominal wall superiorly. Fatty liver ADDITIONAL FINDINGS: No other significant abnormalities. IMPRESSION: 1. No change in the 9 mm nodule in the right middle lobe. The peripheral nodular opacities in the right middle lobe are somewhat less apparent. No new nodules evident. 2. Mild diffuse thickening of the mid to distal esophagus with focal soft tissue density distally. Suggest upper endoscopy or barium swallow to exclude underlying neoplasm. There is a small hiatal hernia. Dictated by: Arnold Muse MD 10/17/2020 09:27 Arnold Muse MD in [place] 10/17/2020 09:27
== END ==
PROVIDERS: PCP Family Medicine; Visit Provider Internal Medicine Pulmonary Disease
DX: R91.1 Solitary pulmonary nodule (principal)
CPT/HCPCS: 71250

== ENCOUNTER → 2020-10-28 15:36 | Outpatient (POV) | payer MEDICARE, SELFPAY | PROVIDERS: Visit Provider Nurse Practitioner Family | DX: Z00.00 Encounter for general adult medical examination without abnormal findings (principal) ==

== ENCOUNTER → 2020-11-18 08:28 | Outpatient (CLI) | payer MEDICARE, SELFPAY ==
[2020-11-18 09:03] LABS: Basophils # 0.1 K/mm3 (0-0.2); Eosinophils # 0.1 K/mm3 (0.0-0.4); Eosinophils % 1.9 % (0.1-12.0); Hematocrit 36.9 % (37.0-47.0); Hemoglobin 12.1 g/dL (12.2-16.2); Lymphocytes # 1.5 K/mm3 (0.7-4.5); Lymphocytes % 25.4 % (10-50); Mean Corpuscular HGB Conc 32.9 g/dL (31.8-35.4); Mean Corpuscular Hemoglobin 31.9 pg (27.0-31.2); Mean Corpuscular Volume 97.2 fl (81-99); Monocytes # 0.4 K/mm3 (0.1-1.0); Monocytes % 7.6 % (1.7-9.3); Neutrophils # 3.7 K/mm3 (1.8-7.8); Neutrophils % 64.1 % (37.0-80.0); Platelet Count 206 K/mm3 (142-424); Red Blood Count 3.79 M/mm3 (4.20-5.40); White Blood Count 5.7 K/mm3 (4.8-10.8)
[2020-11-18 09:30] LABS: Chloride 100 mmol/L (98-107); Potassium 4.9 mmoL/L (3.5-5.1); Sodium 138 mmol/L (136-145)
[2020-11-18 09:33] LABS: Alanine Aminotransferase 50 U/L (12-78); Albumin Level 4.9 g/dl (3.5-5.0); Albumin/Globulin Ratio 2.1 (1.1-1.8); Alkaline Phosphatase 114 U/L (38-126); Anion Gap 13.9 mEq/L (5-15); Aspartate Amino Transferase 44 U/L (14-36); Bilirubin,Total 0.6 mg/dl (0.2-1.3); Blood Urea Nitrogen 14 mg/dl (7-17); Carbon Dioxide 29 mmol/L (22.0-30.0); Estimated Glomerular Filt Rate 71 ml/min (>60); GFR (African American) 86 ML/MIN (>60); Globulin 2.3 g/dL (1.3-3.2); Glucose 136 mg/dl (74-100); Total Protein,Serum 7.2 g/dl (6.3-8.2)
[2020-11-18 10:13] LABS: Ferritin > 1000 ng/ml (11.1-264)
== END ==
PROVIDERS: Visit Provider Internal Medicine Medical Oncology
DX: D64.9 Anemia, unspecified (principal)
CPT/HCPCS: 36415; 80053; 82728; 85025

== ENCOUNTER → 2020-12-10 13:58 | Outpatient (CLI) | payer MEDICARE, SELFPAY | PROVIDERS: Visit Provider Internal Medicine Gastroenterology | DX: Z01.812 Encounter for preprocedural laboratory examination (principal); Z20.822 Contact with and (suspected) exposure to COVID-19; Z12.11 Encounter for screening for malignant neoplasm of colon | CPT/HCPCS: U0003 ==

== ENCOUNTER 2020-12-13 08:49 | Day surgery (SDC) | payer MEDICARE, OTHER, SELFPAY ==
[2020-12-13 09:13] VITALS: BP 178/94; PULSE 86; RESP 18; TEMP 36.2; O2SAT 97
--- NOTE | 2020-12-13 09:25 | HMH.ANESCL ---
[facility] Anesthesia Checklist - Patient Identification Patient Identification: Arm Band - Structural Data Admitted From: Home Planned Operative Procedure/s: Colonoscopy Consent for Planned Operative Procedure(s) Verified: Yes - NPO Status Verified Time NPO: 00:00 - Additional verifications Anesthesia Reactions: No - Airway Assessment C-Spine Mobility Assessed: Yes TMJ Mobility Assessed: Yes Dentition: Good Dentition - Neurological Assessment Level of Consciousness: Awake Hx Seizures: No Numbness or tingling in extremities: No - Anesthesia Plan Anesthesia Risk discussed: Yes Anesthesia Plan: Verified ASA Class: III Anesthesia Type: MAC [facility] History I have reviewed the patient's past medical history: Yes Medical History: Reports:: Cancer (NECK), Congestive Heart Failure, Coronary Artery Disease, Diabetes Mellitus Type 2, Gastroesophageal Reflux Disease(GERD), Hyperlipidemia, Hypertension, Internal Pacemaker, Myocardial Infarction, Valvular Heart Disease Denies:: Diabetes Mellitus Type 1, MRSA, Seizures *Have you ever received a pneumonia vaccine?: Yes *Have you received a flu vaccine this season?: No Other Medical History: Reports: Anemia, Arthritis Anesthesia experience/problems:: None Laterality Cases: Left: Arthroscopy Knee, Bilateral: Tonsillectomy Other Surgeries: Yes: Appendectomy, Cardiac Catheterization, Colonoscopy, Coronary Stent, EGD, Hernia Repair, Hysterectomy-Total, Pacemaker, Other (LHC, CABG, KO) Amputation: No Fractures: No - *Social History Last grade of school completed: 7th or 8th Smoking Status: Never smoker Alcohol Intake: never Alcohol Intake Frequency:: other Substance Use Type: denies use *Occupational Status:: retired Housing: apartment Household Members: family *Travel in the last 8 weeks: None Family Hx:: Coronary Artery Disease, Diabetes
[2020-12-13 09:26] LABS: POC Glucose,Bedside 179 (70-110)
--- NOTE | 2020-12-13 10:00 | P.PCN_ITS ---
[facility] Procedure Note Procedure Note:: Colonoscopy Procedure Report: Colonoscopy with cold snare polypectomy Endoscopist: Gibson Campbell II, MD Referring physician: Caesar Peguero MD Date of Procedure: December 13, 2020 Equipment: Olympus 190 variable stiffness pediatric colonoscope Sedation: MAC sedation Indication: Mrs. Oconnor is a 69-year-old female who is here for follow-up screening/surveillance colonoscopy secondary to high risk/family history of colon cancer. Her father had colon cancer. Her mother had colon polyps. The patient did have a colonoscopy last in 2015 (Caesar Abel MD at [facility]) and no polyps were identified. The patient has had recurrent diverticulitis beginning this year. Her CAT scan did show sigmoid diverticulitis with fat stranding. She has had 2 episodes both responding to antibiotics (Levaquin and Flagyl). She presently has no abdominal pain. She does take a fiber bowel regimen (combined MiraLAX plus Metamucil) and has had improved bowel function. She reports no rectal bleeding or weight loss. 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 She has improved with the addition of buspirone. Procedure: Prior to the procedure, a history and physical exam was performed, and patient's medications and allergies were reviewed. The risks, benefits and alternatives of the sedation and procedure were discussed with the patient. All questions were answered and informed consent was obtained. The patient was brought to the procedure room. Patient identification and proposed procedure were verified by the physician and the nurse. The patient was placed in a left lateral decubitus position and the scope was passed under direct vision. Throughout the procedure, the patient's blood pressure, pulse, and oxygen saturations were monitored continuously. The colonoscopy was accomplished without difficulty. The patient tolerated the procedure well. Findings: On digital rectal examination there was normal rectal tone. There were no external hemorrhoids. The colonoscope was introduced through the anal canal to the rectum and advanced to the cecum. The ileocecal valve and appendiceal orifice were identified. The scope was advanced a short distance into the ileum which appeared grossly normal. The scope was then withdrawn into the colon. The cecum and ascending colon were grossly normal. There were 2 colon polyps (transverse x1 (5 mm) and sigmoid x1 (4 mm)) which were both removed via cold snare polypectomy. There were scattered extensive diverticuli throughout the descending and sigmoid colon (LEFT colon). There was some fibrosis of the sigmoid colon/pericolonic adhesions. The rectum itself was normal. Upon retrof lexion within the rectum there were grade 1-2 internal hemorrhoids. The preparation was excellent throughout with [place] Preparation Score of 9. The cecal time was 12 minutes. Impression: 1. Diminutive colonic polyps x2 2. Extensive left-sided diverticulosis 3. Grade 1-2 internal hemorrhoids Plan: I will follow up the polyp pathology and recommend repeat colonoscopy again in 5 years based upon the patient's family history and the present polyp histology. I would continue the dietary measures and fiber bowel regimen (combined MiraLAX plus Metamucil) on a long-term daily maintenance basis.
[2020-12-13 10:02] VITALS: BP 94/59; PULSE 68; RESP 16; TEMP 36.3; O2SAT 97
[2020-12-13 10:12] VITALS: BP 125/58; PULSE 67; RESP 16; O2SAT 97
[2020-12-13 10:22] VITALS: BP 114/66; PULSE 68; RESP 16; O2SAT 98
[2020-12-13 10:52] VITALS: BP 147/75; PULSE 63; RESP 16; O2SAT 97
[2020-12-13 11:38] VITALS: O2SAT 97
== END 2020-12-13 10:52 | disposition home or self-care (01) ==
PROVIDERS: PCP Family Medicine; Visit Provider Internal Medicine Gastroenterology
PROC: 0DJD8ZZ Inspection of Lower Intestinal Tract, Via Natural or Artificial Opening Endoscopic (ICD-10-PCS; CPT 45378; principal; 2020-12-13 10:00)
DX: Z12.11 Encounter for screening for malignant neoplasm of colon (principal); K63.5 Polyp of colon; K57.30 Diverticulosis of large intestine without perforation or abscess without bleeding; K64.0 First degree hemorrhoids; Z83.71 Family history of colonic polyps; Z80.0 Family history of malignant neoplasm of digestive organs; Z87.19 Personal history of other diseases of the digestive system; E11.9 Type 2 diabetes mellitus without complications; I25.10 Atherosclerotic heart disease of native coronary artery without angina pectoris; K21.9 Gastro-esophageal reflux disease without esophagitis; I10 Essential (primary) hypertension; Z85.89 Personal history of malignant neoplasm of other organs and systems
CPT/HCPCS: 45385; 82962; 88305

== ENCOUNTER 2020-12-27 21:53 | Observation (INO) | payer MEDICARE, OTHER, SELFPAY ==
--- NOTE | 2020-12-27 21:48 | ECG_ITS ---
APPROVED REPORT Exam: Resting ECG HR:72 bpm ECG Measurements Heart Rate 72 AXES [place] 152 P 26 QRSd 148 QRS -52 QT 416 T 118 QTc 455 Conclusion Electronic ventricular pacemaker Electronically signed by : Davin White, 12/28/2020 07:12:07
[2020-12-27 21:54] VITALS: BP 204/99; PULSE 77; RESP 19; TEMP 36.6; O2SAT 98; BMI 27.3
[2020-12-27 21:55] VITALS: BMI 27.3
--- NOTE | 2020-12-27 21:55 | XR_ITS ---
PROCEDURE INFORMATION: Exam: XR Chest Exam date and time: 12/27/2020 9:55 PM Age: 70 years old Clinical indication: Chest pressure; Prior surgery; Surgery date: 6+ months; Surgery type: Pacemaker; Patient HX: Chest pain TECHNIQUE: Imaging protocol: XR of the chest. Views: 2 views. COMPARISON: CT CHEST WO CON 10/15/2020 1:27 PM FINDINGS: Lungs: The lungs are clear without consolidation. Pleural spaces: Unremarkable. No pleural effusion. No pneumothorax. Heart/Mediastinum: The cardiac silhouette, mediastinal contours and hilar shadows appear unremarkable. Small hiatal hernia. There is a cardiac pacemaker in position. Status post aortic valve replacement. Bones/joints: Osseous structures grossly intact. IMPRESSION: No acute cardiopulmonary disease.
[2020-12-27 22:26] LABS: Basophils # 0.1 K/mm3 (0-0.2); Basophils % 0.6 % (0.1-2.0); Eosinophils # 0.1 K/mm3 (0.0-0.4); Eosinophils % 1.3 % (0.1-12.0); Hematocrit 34.7 % (37.0-47.0); Hemoglobin 11.7 g/dL (12.2-16.2); Lymphocytes % 27.2 % (10-50); Mean Corpuscular HGB Conc 33.7 g/dL (31.8-35.4); Mean Corpuscular Hemoglobin 31.8 pg (27.0-31.2); Mean Corpuscular Volume 94.4 fl (81-99); Mean Platelet Volume 7.6 fl (7.4-10.4); Monocytes # 0.5 K/mm3 (0.1-1.0); Monocytes % 6.9 % (1.7-9.3); Neutrophils # 4.7 K/mm3 (1.8-7.8); Neutrophils % 64.1 % (37.0-80.0); Platelet Count 211 K/mm3 (142-424); Red Blood Count 3.67 M/mm3 (4.20-5.40); Red Cell Distribution Width 14.1 % (11.5-17.5); White Blood Count 7.4 K/mm3 (4.8-10.8)
[2020-12-27 22:33] LABS: Anion Gap 16.2 mEq/L (5-15); Blood Urea Nitrogen 14 mg/dl (7-17); Calcium 9.4 mg/dl (8.4-10.2); Carbon Dioxide 28 mmol/L (22.0-30.0); Chloride 98 mmol/L (98-107); Creatinine Clearance Estimated 51 mL/min (50-200); Estimated Glomerular Filt Rate 71 ml/min (>60); GFR (African American) 85 ML/MIN (>60); Glucose 139 mg/dl (74-100); Magnesium 1.9 mg/dl (1.6-2.3); Potassium 4.2 mmoL/L (3.5-5.1); Sodium 138 mmol/L (136-145)
[2020-12-27 22:35] VITALS: BP 178/88; PULSE 66; RESP 19; O2SAT 96
[2020-12-27 22:38] LABS: C-Reactive Protein 10.7 mg/L (0-4)
[2020-12-27 22:45] LABS: Coronavirus 19, PCR Not Detected (NotDetected); Influenza A, PCR Not Detected (NotDetected); Influenza B, PCR Not Detected (NotDetected)
[2020-12-27 22:48] LABS: Troponin I < 0.01 ng/ml (0.00-0.034)
[2020-12-27 22:49] VITALS: BP 178/76; PULSE 64; RESP 19; O2SAT 96
[2020-12-27 22:49] LABS: Erythrocyte Sedimentation Rate 19 mm/hr (0-30)
[2020-12-27 23:00] VITALS: BP 174/80; PULSE 64; RESP 17; O2SAT 97
[2020-12-27 23:16] LABS: Microscopic, Urine URINE MICROSCOPIC (MICROSCOPIC)
[2020-12-27 23:19] LABS: Appearance,Urine CLEAR (Clear); Bilirubin,Urine Negative (Negative); Blood, Urine TRACE-I (Negative); Color,Urine YELLOW (Yellow); Glucose,Urine (UA) Negative (Negative); Ketones,Urine Negative (Negative); Leukocyte Esterase,Urine 1+ (Negative); Nitrate,Urine Negative (Negative); Protein,Urine Negative (Negative); Specific Gravity, Urine <= 1.005 (1.005-1.030); Urobilinogen,Urine 0.2 EU/dl (0.2)
[2020-12-27 23:26] LABS: Bacteria,Urine Trace /lpf; Squamous Epithelial Cell,Urine Occasional #/hpf (0-5)
--- NOTE | 2020-12-28 00:22 | HMH.EDCP ---
ED Disposition Clinical Impression: Unstable angina pectoris, Cardiac pacemaker in situ, S/P CABG x 1, Status post aortic valve replacement with bioprosthetic valve, Hypertensive emergency Disposition: Admitted as Observation Condition on Discharge: Good Referrals: Provider,Referral, [Referring] - - Critical Care Critical Care Time: No Attestation: On 12/27/20, the high probability of a clinically significant, sudden or life threatening deterioration of the following system(s) required my full and direct attention, intervention and personal management. The time I documented below is in addition to time spent performing reported procedures but includes the following listed in this critical care notation. Medical Decision Making - Medical Records Medical records reviewed: Yes: I reviewed the patient's medical records. - Chet Inquiry Pt receiving controlled substance: No Vital Signs: 12/27/20 21:54 12/27/20 22:35 12/27/20 22:49 Temperature 97.8 F Temperature Source Oral Pulse Rate 66 64 Pulse Rate [Right] 77 Respiratory Rate 19 19 19 Blood Pressure 178/88 H 178/76 H Blood Pressure [Right Arm] 204/99 H Blood Pressure Mean Blood Pressure Mean [Right Arm] 134 Blood Pressure Source Manual Cuff/ Auscultation Blood Pressure Source [Right Arm] Automatic Cuff Blood Pressure Position Supine 02 Sat by Pulse Oximetry 98 96 96 Oxygen Delivery Method Room Air Room Air 12/27/20 23:00 12/28/20 02:00 Temperature Temperature Source Pulse Rate 64 68 Pulse Rate [Right] Respiratory Rate 17 18 Blood Pressure 174/80 H 189/83 H Blood Pressure [Right Arm] Blood Pressure Mean 98 Blood Pressure Mean [Right Arm] Blood Pressure Source Blood Pressure Source [Right Arm] Blood Pressure Position 02 Sat by Pulse Oximetry 97 97 Oxygen Delivery Method Room Air Room Air - Lab Data Lab results reviewed: Yes: I reviewed the patient's lab results. Lab Results 12/27/20 22:16: WBC 7.4, RBC 3.67 L, Hgb 11.7 L, Hct 34.7 L, MCV 94.4, MCH 31.8 H, MCHC 33.7, RDW 14.1, Plt Count 211, MPV 7.6, Neut % (Auto) 64.1, Lymph % (Auto) 27.2, [place] % (Auto) 6.9, Eos % (Auto) 1.3, Baso % (Auto) 0.6, Neut # (Auto) 4.7, Lymph # (Auto) 2.0, [place] # (Auto) 0.5, Eos # (Auto) 0.1, Baso # (Auto) 0.1, ESR 19 12/27/20 22:16: Sodium 138, Potassium 4.2, Chloride 98, Carbon Dioxide 28, Anion Gap 16.2 H, BUN 14, Creatinine 0.80, Estimated Creat Clear 51, Estimated GFR 71, Est GFR ( Amer) 85, Glucose 139 H, Calcium 9.4, Magnesium 1.9, Troponin I < 0.01, C-Reactive Protein 10.7 H, Procalcitonin 0.110 12/27/20 22:40: SARS-CoV-2 (PCR) Not detected, Influenza A Untype (PCR) Not detected, Influenza Type B (PCR) Not detected 12/27/20 23:15: Urine Color Yellow, Urine Appearance Clear, Urine pH 6.0, Ur Specific [place] <= 1.005, Urine Protein Negative, Urine Glucose (UA) Negative, Urine Ketones Negative, Urine Blood Trace-i, Urine Nitrate Negative, Urine Bilirubin Negative, Urine Urobilinogen 0.2, Ur Leukocyte Esterase 1+ A, Urine WBC 3-5, Ur Squamous Epith Cells Occasional, Urine Bacteria Trace 12/28/20 00:55: Troponin I < 0.01 Result diagrams: 12/27/20 22:16 12/27/20 22:16 Orders (Tests/Meds): ED MEDICATIONS Generic Name Dose Route Start Last Admin Trade Name Freq PRN Reason Stop Dose Admin Sodium Chloride 1,000 mls @ 999 mls/hr 12/27/20 22:00 12/27/20 22:44 Sod Chlor 0.9% 1000ml Bag IV 12/27/20 23:00 999 mls/hr .Q1H1M SALEEM Administration Discontinued Medications Generic Name Dose Route Start Last Admin Trade Name Freq PRN Reason Stop Dose Admin Aspirin 324 mg 12/27/20 22:19 12/27/20 22:10 Aspirin 81mg Chewable Tablet PO 12/27/20 22:20 324 mg ONCE ONE Administration Lisinopril 20 mg 12/28/20 09:00 Lisinopril 20mg Tablet PO 01/27/21 08:59 DAILY SALEEM Lisinopril 20 mg 12/28/20 02:56 12/28/20 02:58 Lisinopril 20mg Tablet PO 12/28/20 02:57 20 mg ONCE ONE Administratio
[2020-12-28 01:27] LABS: Troponin I < 0.01 ng/ml (0.00-0.034)
[2020-12-28 02:00] VITALS: BP 189/83; PULSE 68; RESP 18; O2SAT 97
[2020-12-28 02:30] VITALS: BP 192/86; PULSE 67; RESP 18; O2SAT 95
[2020-12-28 04:00] VITALS: BP 162/83; PULSE 74; RESP 17; TEMP 36.5; O2SAT 98; BMI 28.2
--- NOTE | 2020-12-28 04:00 | PC.NURSE ---
Called report to Britney Rea RN
[2020-12-28 04:02] VITALS: BP 188/72; PULSE 64; RESP 18; TEMP 36.6
--- NOTE | 2020-12-28 04:10 | PC.NURSE ---
PT ARRIVED TO FLOOR VIA W/C FROM ED W/STAFF AT [id number]
[2020-12-28 04:20] VITALS: PULSE 70
[2020-12-28 04:46] LABS: Basophils % 0.4 % (0.1-2.0); Eosinophils % 0.6 % (0.1-12.0); Hematocrit 33.5 % (37.0-47.0); Hemoglobin 11.1 g/dL (12.2-16.2); Lymphocytes # 1.1 K/mm3 (0.7-4.5); Lymphocytes % 16.7 % (10-50); Mean Corpuscular HGB Conc 33.2 g/dL (31.8-35.4); Mean Corpuscular Hemoglobin 31.7 pg (27.0-31.2); Mean Corpuscular Volume 95.5 fl (81-99); Mean Platelet Volume 7.7 fl (7.4-10.4); Monocytes # 0.4 K/mm3 (0.1-1.0); Monocytes % 5.6 % (1.7-9.3); Neutrophils # 5.2 K/mm3 (1.8-7.8); Neutrophils % 76.7 % (37.0-80.0); Platelet Count 211 K/mm3 (142-424); Red Blood Count 3.51 M/mm3 (4.20-5.40); Red Cell Distribution Width 14.1 % (11.5-17.5); White Blood Count 6.8 K/mm3 (4.8-10.8)
[2020-12-28 05:15] LABS: Anion Gap 12.3 mEq/L (5-15); Blood Urea Nitrogen 13 mg/dl (7-17); Calcium 9.2 mg/dl (8.4-10.2); Carbon Dioxide 26 mmol/L (22.0-30.0); Chloride 104 mmol/L (98-107); Creatinine Clearance Estimated 53 mL/min (50-200); Estimated Glomerular Filt Rate 82 ml/min (>60); GFR (African American) 100 ML/MIN (>60); Glucose 172 mg/dl (74-100); Potassium 4.3 mmoL/L (3.5-5.1); Sodium 138 mmol/L (136-145)
[2020-12-28 05:16] VITALS: BMI 28.3
--- NOTE | 2020-12-28 05:26 | PC.NURSE ---
patient denies chest pain and SOA with no acute distress noted at this time. BP elevated in ED - Lisinipril x 1 dose, 1 liter fluids, Aspirin 324mg x 1 dose, Nitro tablet x 1 with no relief then Nitro paste administered with relief of pain noted in ED. Patient is A & O x 4. Bed is at lowest level for safety, call light in reach; will continue to monitor.
[2020-12-28 05:39] LABS: Troponin I < 0.01 ng/ml (0.00-0.034)
[2020-12-28 08:00] VITALS: BP 169/72; PULSE 74; PULSE 80; RESP 21; TEMP 36.8; O2SAT 99
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
[2020-12-28 15:45] LABS: POC Glucose,Bedside 169 (70-110)
--- NOTE | 2021-01-01 15:06 | HMH.DCSUM ---
General - General Admission date:: 12/28/20 Discharge date: 12/28/20 HPI HPI: This 70-year-old white female presented to the emergency room with complaints of chest pain. She states that she started feeling poorly about 9 PM last evening. She was not short of breath. She was not nauseated. She is not diaphoretic. Her blood pressure was found to be elevated. She was treated in the emergency room and then admitted for further evaluation and treatment. She has a prosthetic aortic valve. She recently had some medication adjustments by Dr. Smith. I believe he discontinued amlodipine and put her on isosorbide. I do not believe I was made aware of the discontinuation of the amlodipine. Dr. Allen in the emergency room stated that the patient was on enalapril and I do not have a record of that. She received a dose of enalapril in the emergency room I believe. Patient is diabetic. Hospital Course Hospital Course: The patient was started on amlodipine 2.5 mg daily. Her troponins were negative and she was stable to be discharged home. According to her record,s she had hives in response to taking nifedipine. Dr. Peguero decided to send her home on 20 mg of lisinopril daily rather than amlodipine. She will follow up in a week in the office with Dr. Peguero. Objective Vital signs: Temp Pulse Resp BP Pulse Ox 98.3 F 74 21 169/72 H 99 12/28/20 08:00 12/28/20 08:00 12/28/20 08:00 12/28/20 08:00 12/28/20 08:00 Narrative: - Constitutional no acute distress - *Routine HEENT Exam Head: Present: normocephalic Eye: Present: PERRL ENT: Present: mucous membranes moist - *Routine Neck Exam Present: supple. Absent: JVD - Routine Chest/Breast/Axilla Exam Chest wall: Absent: tenderness Breast: Present: scars - *Routine Respiratory Exam Present: CTA bilaterally - *Routine Cardiovascular Exam Present: RRR, murmur (Prosthetic), S3, S4. Absent: ectopic - *Routine Abdominal Exam Present: soft, normoactive bowel sounds. Absent: tenderness - *Routine Rectal Exam Rectal:: deferred - *Routine Genitalia Exam Genitalia:: deferred - *Routine Extremities Exam Absent: cyanosis, clubbing, edema - *Routine Skin Exam Present: warm. Absent: rash - *Routine Neurological Exam Present: alert, oriented X3 - Routine Psychiatric Exam Present: normal affect (Becomes upset when we talk about her past history) DS: Diagnosis - Discharge Diagnosis (1) Hypertensive emergency Status: Acute (2) Unstable angina pectoris Status: Acute (3) Cardiac pacemaker in situ Status: Chronic (4) S/P CABG x 1 Status: Chronic Problem details: CABGx1 SVG from ascending aorta to the LAD 03/28/18 (5) Status post aortic valve replacement with bioprosthetic valve Status: Chronic Problem details: 03/28/2018 Sekela Yanez Intuity rapid deployed valve. (6) Anticoagulant long-term use Status: Acute (7) Carotid artery stenosis Status: Chronic Discharge Plan - Patient Discharge Instructions Additional Instructions: follow up with primary care provider as ordered Patient Instructions: DI for Chest Pain - Follow up Plan Follow up with: Monisha Peguero MD [Primary Care Provider] - 01/06/21 1:00 pm Disposition: Home, Self-Care Condition at discharge:: Stable Home Medications: Home Medications Medication Instructions Recorded Confirmed Type acetaminophen 650 mg 650 mg PO ONCE PRN 07/26/17 12/27/20 History tablet,extended release glimepiride 2 mg tablet 2 mg PO QAM 07/26/17 12/27/20 History venlafaxine 37.5 mg tablet 37.5 mg PO BID 07/26/17 12/27/20 History aspirin 81 mg chewable tablet 81 mg PO DAILY 05/13/18 12/27/20 History gabapentin 100 mg capsule 100 mg PO DAILY 05/13/18 12/27/20 History metformin 500 mg tablet 500 mg PO BID tab 05/13/18 12/27/20 History omeprazole 20 mg capsule,delayed 20 mg PO DAILY 05/13/18 12/27/20 History release atorvastatin 80 mg tabl
== END 2020-12-28 10:40 | disposition home or self-care (01) ==
LOC: ER 12-28 02:56 → 2ND 12-28 03:08
PROVIDERS: Admitting Provider Family Medicine; Emergency Provider Emergency Medicine; PCP Family Medicine; Visit Provider Family Medicine
DX: I16.0 Hypertensive urgency (principal); R07.9 Chest pain, unspecified; I11.0 Hypertensive heart disease with heart failure; I50.9 Heart failure, unspecified; I65.23 Occlusion and stenosis of bilateral carotid arteries; Z95.1 Presence of aortocoronary bypass graft; Z95.2 Presence of prosthetic heart valve; Z95.0 Presence of cardiac pacemaker; Z95.5 Presence of coronary angioplasty implant and graft; Z79.01 Long term (current) use of anticoagulants; Z79.899 Other long term (current) drug therapy; Z88.8 Allergy status to other drugs, medicaments and biological substances; I25.110 Atherosclerotic heart disease of native coronary artery with unstable angina pectoris; E11.9 Type 2 diabetes mellitus without complications; Z79.84 Long term (current) use of oral hypoglycemic drugs; Z91.128 Patient's intentional underdosing of medication regimen for other reason
CPT/HCPCS: 71046; 80048; 81001; 82962; 83735; 84145; 84484; 85025; 85651; 86140; 87086; 93005; 96365; 99284; G0378; U0003

== ENCOUNTER → 2021-02-05 12:29 | Outpatient (POV) | payer MEDICARE, OTHER, SELFPAY | DX: Z00.00 Encounter for general adult medical examination without abnormal findings (principal) ==

== ENCOUNTER → 2021-02-22 11:44 | Outpatient (CLI) | payer MEDICARE, OTHER, SELFPAY ==
[2021-02-22 12:02] LABS: Basophils % 0.3 % (0.1-2.0); Eosinophils # 0.1 K/mm3 (0.0-0.4); Eosinophils % 1.1 % (0.1-12.0); Hematocrit 32.5 % (37.0-47.0); Hemoglobin 10.6 g/dL (12.2-16.2); Lymphocytes # 1.5 K/mm3 (0.7-4.5); Lymphocytes % 26.7 % (10-50); Mean Corpuscular HGB Conc 32.6 g/dL (31.8-35.4); Mean Corpuscular Hemoglobin 31.4 pg (27.0-31.2); Mean Corpuscular Volume 96.2 fl (81-99); Mean Platelet Volume 7.9 fl (7.4-10.4); Monocytes # 0.4 K/mm3 (0.1-1.0); Monocytes % 6.5 % (1.7-9.3); Neutrophils # 3.6 K/mm3 (1.8-7.8); Neutrophils % 65.4 % (37.0-80.0); Platelet Count 220 K/mm3 (142-424); Red Blood Count 3.38 M/mm3 (4.20-5.40); Red Cell Distribution Width 14.7 % (11.5-17.5); White Blood Count 5.6 K/mm3 (4.8-10.8)
[2021-02-22 12:58] LABS: Alanine Aminotransferase 47 U/L (12-78); Albumin Level 4.2 g/dl (3.5-5.0); Albumin/Globulin Ratio 1.9 (1.1-1.8); Alkaline Phosphatase 90 U/L (38-126); Anion Gap 12.6 mEq/L (5-15); Aspartate Amino Transferase 41 U/L (14-36); Bilirubin,Total 0.3 mg/dl (0.2-1.3); Blood Urea Nitrogen 20 mg/dl (7-17); Calcium 9.2 mg/dl (8.4-10.2); Carbon Dioxide 29 mmol/L (22.0-30.0); Chloride 102 mmol/L (98-107); Estimated Glomerular Filt Rate 71 ml/min (>60); GFR (African American) 85 ML/MIN (>60); Globulin 2.2 g/dL (1.3-3.2); Glucose 132 mg/dl (74-100); Potassium 5.6 mmoL/L (3.5-5.1); Sodium 138 mmol/L (136-145); Total Protein,Serum 6.4 g/dl (6.3-8.2)
== END ==
PROVIDERS: Visit Provider Nurse Practitioner Family
DX: R13.10 Dysphagia, unspecified (principal); K59.00 Constipation, unspecified; K57.92 Diverticulitis of intestine, part unspecified, without perforation or abscess without bleeding; K30 Functional dyspepsia; R94.5 Abnormal results of liver function studies; Z12.11 Encounter for screening for malignant neoplasm of colon
CPT/HCPCS: 36415; 80053; 85025

== ENCOUNTER → 2021-02-24 10:13 | Outpatient (POV) | payer MEDICARE, OTHER, SELFPAY | PROVIDERS: Visit Provider Nurse Practitioner Family | DX: Z00.00 Encounter for general adult medical examination without abnormal findings (principal) ==

== ENCOUNTER → 2021-03-04 10:06 | Outpatient (CLI) | payer MEDICARE, OTHER, SELFPAY ==
--- NOTE | 2021-03-04 10:08 | CA_ITS ---
APPROVED REPORT Animal Scientist: Bia Borden RVT Laterality: Bilateral Study Quality: Good Indications: NEFTALI Risk Factors Hypertension: Hyperlipidemia Doppler Spectral Velocity Analysis ECA (R) 214.00/7.70 cm/s ECA (L) 82.30/9.60 cm/s dICA (R) 71.60/24.60 cm/s dICA (L) 110.10/35.30 cm/s [place] (R) 101.60/31.00 cm/s [place] (L) 116.60/33.10 cm/s pICA (R) 85.50/27.80 cm/s pICA (L) 99.40/32.10 cm/s dCCA (R) 66.30/8.60 cm/s dCCA (L) 84.50/23.50 cm/s pCCA (R) 62.00/11.80 cm/s pCCA (L) 73.80/15.00 cm/s Vert (R) 36.40/11.80 cm/s Vert (L) 48.10/11.80 cm/s ICA/CCA 1.53 ICA/CCA 1.38 Findings Study suggests 20-49 % stenosis of the right internal cartoid artery. Study suggests 20-49% stenosis of the left internal cartoid artery. Antegrade flow seen bilateral vertebral arteries. Conclusion Study suggests 20-49 % stenosis of the right internal cartoid artery. Study suggests 20-49% stenosis of the left internal cartoid artery. Antegrade flow seen bilateral vertebral arteries. Electronically signed by : Arnold Muse MD 03/04/2021 16:41:41
== END ==
PROVIDERS: PCP Family Medicine; Visit Provider Internal Medicine Cardiovascular Disease
DX: I65.23 Occlusion and stenosis of bilateral carotid arteries (principal)
CPT/HCPCS: 93880

== ENCOUNTER → 2021-07-30 09:32 | Outpatient (CLI) | payer MEDICARE, OTHER, SELFPAY ==
--- NOTE | 2021-07-30 09:41 | FL_ITS ---
FINAL REPORT CLINICAL HISTORY: .dysphagia FINDINGS: ESOPHAGRAM HISTORY: Abdominal pain, nausea. PROCEDURE: The patient ingested barium. Effervescent crystals were also administered. Spot and overhead films were obtained. FINDINGS: There is marked esophageal dysmotility. There is corkscrewing of the distal esophagus. There is marked esophageal reflux to the thoracic esophagus. There is no obstruction or extrinsic compression of the esophagus. IMPRESSION: Marked esophageal dysmotility with gastroesophageal reflux and corkscrew esophagus. Reviewed, Interpreted and Dictated by Juan Cabrera III, MD Transcribed by ANJUM Leon Authenticated by Juan Cabrera III, MD on 07/30/2021 11:35:53 AM [facility]
== END ==
PROVIDERS: PCP Internal Medicine; Visit Provider Surgery
DX: R13.10 Dysphagia, unspecified (principal)
CPT/HCPCS: 74220

== ENCOUNTER → 2021-08-21 11:38 | Outpatient (CLI) | payer MEDICARE, OTHER, SELFPAY ==
[2021-08-22 09:05] LABS: Covid-19 Nasal PCR Sendout Lex NOT DETECTED
== END ==
PROVIDERS: Visit Provider Nurse Practitioner
DX: Z20.822 Contact with and (suspected) exposure to COVID-19 (principal)
CPT/HCPCS: C9803; U0004; U0005

== ENCOUNTER → 2021-09-02 09:22 | Outpatient (CLI) | payer MEDICARE, OTHER, SELFPAY ==
--- NOTE | 2021-09-02 09:30 | XR_ITS ---
FINAL REPORT CLINICAL HISTORY: LOW BACK PAIN AND LEFT HIP PAIN FINDINGS: 4 views were obtained. There is no acute fracture. There is no malalignment. There is 10? of lumbar scoliosis convex to the left. There is moderate disc space narrowing at L2-L3, L3-L4 and L4-L5. There is dense calcification of the abdominal aorta. An 8 mm density in the right flank projects outside the renal shadow and is unlikely to represent a renal stone. IMPRESSION: Moderate degenerative disc disease. Reviewed, Interpreted and Dictated by Ryan Lomeli MD Transcribed by Gaurang Beverly Authenticated by Ryan Lomeli MD on 09/02/2021 11:15:48 AM [facility]
--- NOTE | 2021-09-02 09:30 | XR_ITS ---
FINAL REPORT CLINICAL HISTORY: lt hip pain.. FINDINGS: Left hip with pelvis. There is no acute fracture or dislocation. The joint spaces are intact. There are surgical clips in the left inguinal region. IMPRESSION: No acute process. Reviewed, Interpreted and Dictated by Ryan Lomeli MD Transcribed by Gaurang Beverly Authenticated by Ryan Lomeli MD on 09/02/2021 11:15:[address] [facility]
== END ==
PROVIDERS: PCP Internal Medicine; Visit Provider Internal Medicine
DX: M54.50 Low back pain, unspecified (principal); M25.552 Pain in left hip
CPT/HCPCS: 72110; 73502

== ENCOUNTER → 2022-01-28 16:51 | Outpatient (CLI) | payer MEDICARE, OTHER, SELFPAY ==
[2022-01-28 18:34] LABS: Basophils # 0.1 K/mm3 (0-0.2); Basophils % 0.6 % (0.1-2.0); Eosinophils # 0.1 K/mm3 (0.0-0.4); Eosinophils % 1.2 % (0.1-12.0); Hematocrit 31.4 % (37.0-47.0); Hemoglobin 10.5 g/dL (12.2-16.2); Lymphocytes # 1.6 K/mm3 (0.7-4.5); Lymphocytes % 20.3 % (10-50); Mean Corpuscular HGB Conc 33.3 g/dL (31.8-35.4); Mean Corpuscular Hemoglobin 31.6 pg (27.0-31.2); Mean Corpuscular Volume 94.8 fl (81-99); Mean Platelet Volume 8.5 fl (7.4-10.4); Monocytes # 0.6 K/mm3 (0.1-1.0); Monocytes % 7.4 % (1.7-9.3); Neutrophils # 5.5 K/mm3 (1.8-7.8); Neutrophils % 70.4 % (37.0-80.0); Platelet Count 261 K/mm3 (142-424); Red Blood Count 3.32 M/mm3 (4.20-5.40); Red Cell Distribution Width 14.7 % (11.5-17.5); White Blood Count 7.8 K/mm3 (4.8-10.8)
[2022-01-28 18:52] LABS: Chloride 103 mmol/L (98-107); Potassium 4.8 mmoL/L (3.5-5.1); Sodium 139 mmol/L (136-145)
[2022-01-28 18:55] LABS: Albumin Level 4.6 g/dl (3.5-5.0); Albumin/Globulin Ratio 2.1 (1.1-1.8); Alkaline Phosphatase 125 U/L (38-126); Anion Gap 13.8 mEq/L (5-15); Bilirubin,Total 0.4 mg/dl (0.2-1.3); Carbon Dioxide 27 mmol/L (22.0-30.0); Globulin 2.2 g/dL (1.3-3.2); HDL Cholesterol 50 mg/dl (40-60); Total Protein,Serum 6.8 g/dl (6.3-8.2)
[2022-01-28 18:56] LABS: Alanine Aminotransferase 21 U/L (12-78); Aspartate Amino Transferase 27 U/L (14-36); Blood Urea Nitrogen 21 mg/dl (7-17); Calcium 9.9 mg/dl (8.4-10.2); Chol/HDL Ratio 3.1 (1-3.5); Cholesterol 156 mg/dl (140-200); Estimated Glomerular Filt Rate 70 ml/min (>60); GFR (African American) 85 ML/MIN (>60); Glucose 57 mg/dl (74-100); Triglycerides 185 mg/dl (30-150); VLDL Cholesterol 37 mg/dL (0-40)
[2022-01-28 18:58] LABS: Creatinine,Urine Random 40 mg/dL (Not Estab.)
[2022-01-28 19:06] LABS: Direct LDL Cholesterol 69.76 mg/dL (100-129)
[2022-01-28 19:12] LABS: Hemoglobin A1C 5.7 % (4.0-6.0)
== END ==
PROVIDERS: PCP Internal Medicine; Visit Provider Internal Medicine
DX: E11.59 Type 2 diabetes mellitus with other circulatory complications (principal); I10 Essential (primary) hypertension; I25.10 Atherosclerotic heart disease of native coronary artery without angina pectoris; E78.5 Hyperlipidemia, unspecified; K21.9 Gastro-esophageal reflux disease without esophagitis
CPT/HCPCS: 80053; 80061; 82043; 82570; 83036; 85025

== ENCOUNTER → 2022-02-23 15:13 | Outpatient (CLI) | payer MEDICARE, OTHER, SELFPAY ==
--- NOTE | 2022-02-23 15:17 | MM_ITS ---
PROCEDURE INFORMATION: Exam: MG Bilateral Screening 3D Mammography Exam date and time: 02/23/2022 3:23 PM Age: 71 years old Clinical indication: Screening mammogram TECHNIQUE: Imaging protocol: Bilateral Screening tomosynthesis and 2D mammography including computer-aided detection (CAD) when performed. COMPARISON: 1. MG SCBI MM Dig screening mamm BI w/CAD 01/21/2018 9:56 AM 2. MG DMSB DIG MAMM-SCREEN BRIAN W/CAD 01/19/2017 5:44 PM 3. MG DMSB DIG MAMM-SCREEN BRIAN 01/17/2016 4:13 PM 4. MG DMSB DIG MAMM-SCREEN BRIAN 01/02/2015 5:25 PM FINDINGS: MAMMOGRAPHY: Breast composition: There are scattered areas of fibroglandular density. Mass: None. Architectural distortion: No new or suspicious architectural distortion. Calcifications: Stable benign-appearing calcifications are present. No new or suspicious cluster of microcalcifications have developed. Asymmetric density: No new or suspicious asymmetric density is present Skin thickening: None. Axillary adenopathy: None. Other findings: Left upper posterior pacemaker. IMPRESSION: No mammographic evidence of malignancy. Recommend annual screening mammography unless otherwise clinically indicated. ASSESSMENT: BI-RADS category 2: Benign
== END ==
PROVIDERS: PCP Internal Medicine; Visit Provider Internal Medicine
DX: Z12.31 Encounter for screening mammogram for malignant neoplasm of breast (principal)
CPT/HCPCS: 77063; 77067

== ENCOUNTER 2022-04-10 18:58 | Emergency (ER) | payer MEDICARE, OTHER, SELFPAY ==
[2022-04-10 19:07] VITALS: BP 147/70; PULSE 75; RESP 16; TEMP 36.7; O2SAT 97; BMI 29.2
--- NOTE | 2022-04-10 20:01 | CT_ITS ---
PROCEDURE INFORMATION: Exam: CT Abdomen And Pelvis With Contrast Exam date and time: 04/10/2022 9:05 PM Age: 71 years old Clinical indication: Abdominal pain; Prior surgery; Surgery date: 6+ months; Surgery type: Hysterectomy, appendectomy. Hernia; Patient HX: Generalized abdomen pain; Additional info: Abd pain TECHNIQUE: Imaging protocol: Computed tomography of the abdomen and pelvis with contrast. Radiation optimization: All CT scans at this facility use at least one of these dose optimization techniques: automated exposure control; mA and/or kV adjustment per patient size (includes targeted exams where dose is matched to clinical indication); or iterative reconstruction. Contrast material: ISOVUE; Contrast volume: 75 ml; Contrast route: IV; COMPARISON: SD CT ABDOMEN PELVIS W CON 09/26/2020 9:46 PM FINDINGS: Mediastinal space: Wall thickening involving the distal esophagus. Liver: Fatty liver. Stable hepatic cysts. Stable area of hypodensity in the right lobe of the liver containing 2 calcifications which could reflect a complex cyst or hemangioma. Gallbladder and bile ducts: Gallbladder decompressed. Pancreas: Normal. No ductal dilation. Spleen: Normal. No splenomegaly. Adrenal glands: Normal. No mass. Kidneys and ureters: Normal. No hydronephrosis. Stomach and bowel: Diverticulosis in the sigmoid without diverticulitis. No colitis. No small bowel obstruction. Mild diffuse colonic wall enhancement could reflect low-grade colitis. Appendix: Appendectomy. Intraperitoneal space: Unremarkable. No free air. No significant fluid collection. Vasculature: Unremarkable. No abdominal aortic aneurysm. Lymph nodes: Unremarkable. No enlarged lymph nodes. Urinary bladder: Unremarkable as visualized. Reproductive: Unremarkable as visualized. Bones/joints: Unremarkable. No acute fracture. Soft tissues: Unremarkable. IMPRESSION: Mild diffuse colonic wall enhancement could indicate low-grade colitis. No additional acute findings in the abdomen pelvis. Distal esophageal wall thickening could indicate esophagitis.
[2022-04-10 20:20] LABS: Appearance,Urine SL CLOUDY (Clear); Bilirubin,Urine Negative (Negative); Blood, Urine TRACE-I (Negative); Color,Urine YELLOW (Yellow); Glucose,Urine (UA) Negative (Negative); Ketones,Urine Negative (Negative); Leukocyte Esterase,Urine 3+ (Negative); Microscopic, Urine URINE MICROSCOPIC (MICROSCOPIC); Nitrate,Urine Negative (Negative); PH,Urine 5.5 (5.0-8.5); Protein,Urine Negative (Negative); Urobilinogen,Urine 0.2 EU/dl (0.2)
[2022-04-10 20:23] LABS: Basophils # 0.1 K/mm3 (0-0.2); Eosinophils # 0.1 K/mm3 (0.0-0.4); Eosinophils % 1.4 % (0.1-12.0); Hematocrit 32.1 % (37.0-47.0); Hemoglobin 10.7 g/dL (12.2-16.2); Lymphocytes # 1.5 K/mm3 (0.7-4.5); Lymphocytes % 20.6 % (10-50); Mean Corpuscular HGB Conc 33.3 g/dL (31.8-35.4); Mean Corpuscular Hemoglobin 32.9 pg (27.0-31.2); Mean Corpuscular Volume 98.8 fl (81-99); Mean Platelet Volume 8.4 fl (7.4-10.4); Monocytes # 0.5 K/mm3 (0.1-1.0); Neutrophils # 5.2 K/mm3 (1.8-7.8); Platelet Count 268 K/mm3 (142-424); Red Blood Count 3.25 M/mm3 (4.20-5.40); Red Cell Distribution Width 15.1 % (11.5-17.5); White Blood Count 7.5 K/mm3 (4.8-10.8)
[2022-04-10 20:23] LABS: Bacteria,Urine 2+ /lpf; RBC,Urine Occasional #/hpf (0-3)
[2022-04-10 20:28] LABS: Chloride 102 mmol/L (98-107); Potassium 4.8 mmoL/L (3.5-5.1); Sodium 141 mmol/L (136-145)
[2022-04-10 20:30] LABS: Blood Urea Nitrogen 16 mg/dl (7-17); Creatinine Clearance Estimated 54 mL/min (50-200); Estimated Glomerular Filt Rate 82 ml/min (>60); GFR (African American) 99 ML/MIN (>60)
[2022-04-10 20:31] LABS: Alanine Aminotransferase 25 U/L (12-78); Albumin Level 4.7 g/dl (3.5-5.0); Alkaline Phosphatase 108 U/L (38-126); Anion Gap 16.8 mEq/L (5-15); Aspartate Amino Transferase 33 U/L (14-36); Calcium 8.9 mg/dl (8.4-10.2); Carbon Dioxide 27 mmol/L (22.0-30.0); Globulin 2.3 g/dL (1.3-3.2); Glucose 219 mg/dl (74-100)
[2022-04-10 20:36] LABS: C-Reactive Protein 7.4 mg/L (0-4)
--- NOTE | 2022-04-10 20:54 | HMH.EDABDPAI ---
Discharge Plan Disposition Patient Disposition: Home, Self-Care Prescriptions Prescriptions: New metronidazole 500 mg Tablet 500 mg PO TID Qty: 21 0RF cephalexin [cephalexin] 500 mg capsule 500 mg PO TID Qty: 30 0RF No Action venlafaxine 37.5 mg tablet 37.5 mg PO BID glimepiride 2 mg tablet 2 mg PO QAM acetaminophen 650 mg tablet extended release 650 mg PO ONCE PRN (Reason: pain ) metformin 500 mg tablet 500 mg PO BID aspirin 81 mg tablet,chewable 81 mg PO DAILY omeprazole 20 mg capsule,delayed release(DR/EC) 20 mg PO DAILY gabapentin 100 mg capsule 100 mg PO DAILY atorvastatin 80 mg tablet 40 mg PO DAILY 30 Days Qty: 15 metoprolol succinate 50 mg tablet extended release 24 hr 50 mg PO DAILY quetiapine [Seroquel] 50 mg tablet 50 mg PO BID Calcium 600 + D(3) 600 mg calcium- 200 unit capsule 600 cap PO DAILY diazepam 2 mg tablet 2 mg PO DAILYP PRN (Reason: Anxiety) isosorbide mononitrate 30 mg tablet extended release 24 hr See Rx Instructions .ROUTE .COMPLEX Qty: 30 5RF Dose Instruction: TAKE ONE TABLET BY MOUTH ONCE A DAY Rx Instructions: TAKE ONE TABLET BY MOUTH ONCE A DAY furosemide 40 MG tablet 40 mg PO DAILY buspirone 10 MG tablet 5 mg PO HS lisinopril 20 MG tablet 20 mg PO DAILY Qty: 30 3RF Referrals Follow up/Referrals: Hansel Ruff MD [Primary Care Provider] - See instructions Clinical Impressions Clinical Impression: Acute UTI (urinary tract infection), Colitis Instructions Patient Instructions: DI for Urinary Tract Infection (UTI) Discharge ED Provider: Ismael Allen Abdominal Pain HPI General Chief Complaint: Abdominal Pain Stated Complaint: lower Abd pain Time Seen by Provider: 04/10/22 20:54 Mode of Arrival: Ambulatory Source of Information: Patient, Relative and Medical Record Limitations: No Limitations Description of Symptoms (Recalled from ER Triage Doc. by RN): Pt reports bilat lower quadrant abd pain that started this afternoon. She describes pain as intermittent cramping. Abd non-tender on palpation. She reports a normal BM this morning. She denies nausea or diarrhea but says she had an episode of vomiting prior to arrival to ED. History of Present Illness HPI narrative: crampy lower abd pain which started this afternoon - pt with one episode of vomiting MD complaint: abdominal pain Onset (ago): hour(s) Consistency: intermittent Location: LLQ Severity: moderate Quality: cramping Associated symptoms: denies other symptoms Related Data Home Medications Medication Instructions Recorded Confirmed acetaminophen 650 mg 650 mg PO ONCE PRN pain 07/26/17 07/21/21 tablet,extended release glimepiride 2 mg tablet 2 mg PO QAM Diabetes 07/26/17 07/21/21 venlafaxine 37.5 mg tablet 37.5 mg PO BID mood 07/26/17 07/21/21 aspirin 81 mg chewable tablet 81 mg PO DAILY Heart disease 05/13/18 07/21/21 gabapentin 100 mg capsule 100 mg PO DAILY Pain 05/13/18 07/21/21 metformin 500 mg tablet 500 mg PO BID Diabetes 05/13/18 07/21/21 omeprazole 20 mg capsule,delayed 20 mg PO DAILY GERD 05/13/18 07/21/21 release atorvastatin 80 mg tablet 40 mg PO DAILY Cholesterol 30 days 11/25/18 07/21/21 #15 tabs calcium carbonate 600 mg-vitamin 600 cap PO DAILY Supplement 12/13/18 07/21/21 D3 5 mcg (200 unit) capsule (Calcium 600 + D(3)) metoprolol succinate 50 mg 50 mg PO DAILY Heart disease 12/13/18 07/21/21 tablet,extended release 24 hr quetiapine 50 mg tablet (Seroquel) 50 mg PO BID mood 12/13/18 07/21/21 diazepam 2 mg tablet 2 mg PO DAILYP PRN Anxiety 12/01/19 07/21/21 furosemide 40 mg tablet 40 mg PO DAILY chf 09/26/20 07/21/21 buspirone 10 mg tablet 5 mg PO HS . 12/13/20 07/21/21 Previous Rx's Medication Instructions Recorded lisinopril 20 mg tablet 20 mg PO DAILY #30 tabs 12/28/20 isosorbide mononitrate 30 mg See Rx Instructions .Route 12/25/21 tablet
[2022-04-10 21:03] LABS: Bilirubin,Total < 0.1 mg/dl (0.2-1.3)
[2022-04-10 21:41] LABS: Erythrocyte Sedimentation Rate 21 mm/hr (0-30)
[2022-04-10 21:42] VITALS: BP 143/62; PULSE 70; O2SAT 98
[2022-04-10 22:00] VITALS: BP 146/61; PULSE 69; O2SAT 97
[2022-04-10 22:55] VITALS: BP 146/61; PULSE 74; RESP 17; TEMP 36.8; O2SAT 97
== END 2022-04-10 22:58 | disposition home or self-care (01) ==
PROVIDERS: Emergency Provider Emergency Medicine; PCP Internal Medicine
DX: N39.0 Urinary tract infection, site not specified (principal); R11.10 Vomiting, unspecified; K52.9 Noninfective gastroenteritis and colitis, unspecified; I65.29 Occlusion and stenosis of unspecified carotid artery; F41.9 Anxiety disorder, unspecified; Z79.1 Long term (current) use of non-steroidal anti-inflammatories (NSAID); Z79.82 Long term (current) use of aspirin; Z79.84 Long term (current) use of oral hypoglycemic drugs; Z79.899 Other long term (current) drug therapy; Z88.5 Allergy status to narcotic agent; Z88.6 Allergy status to analgesic agent; Z88.8 Allergy status to other drugs, medicaments and biological substances; Z95.1 Presence of aortocoronary bypass graft
CPT/HCPCS: 74177; 80053; 81001; 85025; 85651; 86140; 87086; 87088; 87186; 96374; 99285; J0696; Q9967

== ENCOUNTER 2022-06-07 12:50 | Emergency (ER) | payer MEDICARE, OTHER, SELFPAY ==
[2022-06-07 15:30] VITALS: BP 146/62; PULSE 72; RESP 20; TEMP 36.8; O2SAT 98; BMI 22.3
--- NOTE | 2022-06-07 15:51 | EXP.UTC ---
Discharge Plan Disposition Patient Disposition: Home, Self-Care Condition: Good Prescriptions Prescriptions: No Action venlafaxine 37.5 mg tablet 37.5 mg PO BID glimepiride 2 mg tablet 2 mg PO QAM acetaminophen 650 mg tablet extended release 650 mg PO ONCE PRN (Reason: pain ) metformin 500 mg tablet 500 mg PO BID aspirin 81 mg tablet,chewable 81 mg PO DAILY omeprazole 20 mg capsule,delayed release(DR/EC) 20 mg PO DAILY gabapentin 100 mg capsule 100 mg PO DAILY atorvastatin 80 mg tablet 40 mg PO DAILY 30 Days Qty: 15 metoprolol succinate 50 mg tablet extended release 24 hr 50 mg PO DAILY quetiapine [Seroquel] 50 mg tablet 50 mg PO BID Calcium 600 + D(3) 600 mg calcium- 200 unit capsule 600 cap PO DAILY diazepam 2 mg tablet 2 mg PO DAILYP PRN (Reason: Anxiety) isosorbide mononitrate 30 mg tablet extended release 24 hr See Rx Instructions .ROUTE .COMPLEX Qty: 30 5RF Dose Instruction: TAKE ONE TABLET BY MOUTH ONCE A DAY Rx Instructions: TAKE ONE TABLET BY MOUTH ONCE A DAY furosemide 40 MG tablet 40 mg PO DAILY buspirone 10 MG tablet 5 mg PO HS lisinopril 20 MG tablet 20 mg PO DAILY Qty: 30 3RF metronidazole 500 mg Tablet 500 mg PO TID Qty: 21 0RF cephalexin [cephalexin] 500 mg capsule 500 mg PO TID Qty: 30 0RF Referrals Follow up/Referrals: Hansel Ruff MD [Primary Care Provider] - See instructions Activity Restrictions/Add. Instructions Additional Instructions/Restrictions: *Monitor Temp, Over the counter Motrin or Tylenol as directed/as needed Tylenol every 4 hours and Motrin every 6 hours (as long as your family doctor has told you that you can take it) for fever or pain. and straight to ER if unable to lower temp less than 101.0 after medication given *Warm salt water gargles may help to soothe the throat *Throat Lozenges? *Warm fluids like tea with honey may help to soothe the throat? *Sleep elevated *Humidifier/Vaporizer Follow up IMMEDIATELY for new or worsening symptoms or no Noticeable improvement over the next 48-72 hours. 911 for difficulty breathing or swallowing You were tested for today for COVID19 your test result should be back in the next 24-48 hours, you may check your results on the [facility] My Health Portal Clinical Impressions Clinical Impression: Exposure to COVID-19 virus Instructions Patient Instructions: Coronavirus Disease 2019, DI for COVID-19 (Suspected or Confirmed ) Discharge ED Provider: Leslie Springer [facility] HPI General Stated complaint: Covid test, cough, SIEGEL Mode of Arrival: Ambulatory Source of Information: Patient Limitations: No Limitations Time Seen by Provider: 06/07/22 15:51 Description of Symptoms (Recalled from Triage Doc. by RN): PATIENT C/O COUGH AND HEADACHE X 2 DAYS. RECENTLY EXPOSED TO COVID HEENT Symptoms (Recalled from RN notes): Yes Resp Symptoms (Recalled from RN notes): Yes Skin Symptoms (Recalled from RN notes): No MS Symptoms (Recalled from RN notes): No Functional Status (Recalled from RN notes): WNL History of Present Illness Provider Complaint: Patient state that she was recently around someone that has tested positive for covid and she has had a headache and cough so she wanted to get tested denies any other symptoms Related Data Home Medications Medication Instructions Recorded Confirmed acetaminophen 650 mg 650 mg PO ONCE PRN pain 07/26/17 07/21/21 tablet,extended release glimepiride 2 mg tablet 2 mg PO QAM Diabetes 07/26/17 07/21/21 venlafaxine 37.5 mg tablet 37.5 mg PO BID mood 07/26/17 07/21/21 aspirin 81 mg chewable tablet 81 mg PO DAILY Heart disease 05/13/18 07/21/21 gabapentin 100 mg capsule 100 mg PO DAILY Pain 05/13/18 07/21/21 metformin 500 mg tablet 500 mg PO BID Diabetes 05/13/18 07/21/21 omeprazole 20 mg capsule,delayed 20 mg PO DAILY GERD 05/13/18 07/21/21 release atorv
[2022-06-07 15:55] VITALS: BP 146/62; PULSE 72; RESP 20; TEMP 36.8; O2SAT 98
== END 2022-06-07 16:11 | disposition home or self-care (01) ==
PROVIDERS: Emergency Provider Nurse Practitioner; PCP Internal Medicine
DX: U07.1 COVID-19 (principal); R51.9 Headache, unspecified; R05.9 Cough, unspecified; I65.29 Occlusion and stenosis of unspecified carotid artery; F41.9 Anxiety disorder, unspecified; Z79.82 Long term (current) use of aspirin; Z79.84 Long term (current) use of oral hypoglycemic drugs; Z79.899 Other long term (current) drug therapy; Z88.5 Allergy status to narcotic agent; Z88.6 Allergy status to analgesic agent; Z88.8 Allergy status to other drugs, medicaments and biological substances; Z95.1 Presence of aortocoronary bypass graft; Z95.4 Presence of other heart-valve replacement
CPT/HCPCS: 99213; C9803; G0463; U0003; U0005

== ENCOUNTER → 2022-08-04 17:05 | Outpatient (CLI) | payer MEDICARE, OTHER, SELFPAY ==
[2022-08-04 18:20] LABS: Hemoglobin A1C 5.9 % (4.0-6.0)
[2022-08-04 19:02] LABS: Alanine Aminotransferase 17 U/L (12-78); Albumin Level 4.4 g/dl (3.5-5.0); Albumin/Globulin Ratio 2.1 (1.1-1.8); Alkaline Phosphatase 70 U/L (38-126); Anion Gap 12.2 mEq/L (5-15); Aspartate Amino Transferase 22 U/L (14-36); Bilirubin,Total 0.4 mg/dl (0.2-1.3); Blood Urea Nitrogen 13 mg/dl (7-17); Calcium 8.9 mg/dl (8.4-10.2); Carbon Dioxide 27 mmol/L (22.0-30.0); Chloride 103 mmol/L (98-107); Chol/HDL Ratio 3.1 (1-3.5); Cholesterol 178 mg/dl (140-200); Estimated Glomerular Filt Rate 82 ml/min (>60); GFR (African American) 99 ML/MIN (>60); Globulin 2.1 g/dL (1.3-3.2); Glucose 105 mg/dl (74-100); HDL Cholesterol 58 mg/dl (40-60); Potassium 4.2 mmoL/L (3.5-5.1); Sodium 138 mmol/L (136-145); Total Protein,Serum 6.5 g/dl (6.3-8.2); Triglycerides 178 mg/dl (30-150); VLDL Cholesterol 36 mg/dL (0-40)
[2022-08-04 19:13] LABS: Direct LDL Cholesterol 86.94 mg/dL (100-129)
== END ==
PROVIDERS: PCP Internal Medicine; Visit Provider Internal Medicine
DX: E11.59 Type 2 diabetes mellitus with other circulatory complications (principal); I25.10 Atherosclerotic heart disease of native coronary artery without angina pectoris; I10 Essential (primary) hypertension; E78.5 Hyperlipidemia, unspecified; Z79.84 Long term (current) use of oral hypoglycemic drugs
CPT/HCPCS: 80053; 80061; 83036

== ENCOUNTER 2022-08-18 13:16 | Emergency (ER) | payer MEDICARE, OTHER, SELFPAY ==
[2022-08-18] VITALS (12 sets, daily range): BP systolic 127–164; BP diastolic 49–69; PULSE 60–79; RESP 16–20; TEMP -6.6–37.1; O2SAT 96–99; BMI 23.6
--- NOTE | 2022-08-18 13:42 | CT_ITS ---
FINAL REPORT CLINICAL HISTORY: fall COMPARISON: 10/31/2019 FINDINGS: Axial images of the head were obtained without contrast. Coronal reformatted images were also obtained. This study was performed with techniques to keep radiation doses as low as reasonably achievable (ALARA). Individualized dose reduction techniques using automated exposure control or adjustment of mA and/or kV according to the patient''s size were employed. There is generalized age-appropriate atrophy. Periventricular low-attenuation areas are seen consistent with mild chronic ischemic changes. 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 There is no evidence of intracranial hemorrhage or mass. There is no evidence of acute infarct. There is no evidence of shift of the midline structures. No skull abnormality is seen on the bone window images. IMPRESSION: Atrophy and mild periventricular chronic ischemic changes. No acute intracranial abnormality identified. Reviewed, Interpreted and Dictated by Ryan Lomeli MD Transcribed by Tana Anderson Authenticated and [facility]
--- NOTE | 2022-08-18 13:43 | XR_ITS ---
FINAL REPORT CLINICAL HISTORY: fall FINDINGS: 2 views of the right humerus were obtained. There is no acute fracture or dislocation. The joint spaces appear intact. There is no acute soft tissue abnormality. IMPRESSION: No acute process. Reviewed, Interpreted and Dictated by Ryan Lomeli MD Transcribed by Gaurang Beverly Authenticated and [facility]
--- NOTE | 2022-08-18 13:43 | XR_ITS ---
FINAL REPORT CLINICAL HISTORY: fall FINDINGS: 2 views of the left humerus were obtained. There is no acute fracture or dislocation. The joint spaces appear intact. There is no acute soft tissue abnormality. IMPRESSION: No acute process. Reviewed, Interpreted and Dictated by Ryan Lomeli MD Transcribed by Gaurang Beverly Authenticated and [facility]
--- NOTE | 2022-08-18 14:09 | PC.NURSE ---
radiology contaced about scans and xray orders
--- NOTE | 2022-08-18 15:50 | CT_ITS ---
FINAL REPORT TECHNIQUE: Axial CT images of the thoracic spine were obtained without contrast. Sagittal and coronal reformatted images were also obtained. This study was performed with techniques to keep radiation doses as low as reasonably achievable (ALARA). Individualized dose reduction techniques using automated exposure control or adjustment of mA and/or kV according to the patient's size were employed. CLINICAL HISTORY: fall FINDINGS: There is no evidence of fracture. There is moderate disc space narrowing throughout the mid and lower thoracic spine. There is mild osteophyte formation. The vertebral alignment is normal. There is no evidence of significant canal stenosis. No paraspinous soft tissue abnormality is identified. Note is made of a moderate hiatal hernia. Calcified granulomas are seen in the visualized lungs. IMPRESSION: No fracture or acute bony abnormality. Reviewed, Interpreted and Dictated by Ryan Lomeli MD Transcribed by Gaurang Beverly Authenticated and . [facility]
--- NOTE | 2022-08-18 15:50 | CT_ITS ---
FINAL REPORT TECHNIQUE: Axial images were obtained of the cervical spine by computed tomography. Coronal and sagittal reconstruction process performed. This study was performed with techniques to keep radiation doses as low as reasonably achievable (ALARA). Individualized dose reduction techniques using automated exposure control or adjustment of mA and/or kV according to the patient''s size were employed. CLINICAL HISTORY: fall FINDINGS: Cervical vertebrae show normal height. Disc spaces are preserved. There is minimal spondylolisthesis of C4 on C5 and C6 on C7 that is probably degenerative. The facets are properly aligned. IMPRESSION: No fracture. Reviewed, Interpreted and Dictated by Ryan Lomeli MD Transcribed by Gaurang Beverly Authenticated and [facility]
--- NOTE | 2022-08-18 15:50 | CT_ITS ---
FINAL REPORT TECHNIQUE: Axial images were performed through the lumbar spine by computed tomography. Sagittal reconstruction images were also performed. This study was performed with techniques to keep radiation doses as low as reasonably achievable, (ALARA). Individualized dose reduction techniques using automated exposure control or adjustment of mA and/or kV according to the patient's size were employed. CLINICAL HISTORY: fall FINDINGS: Sagittal reconstruction images demonstrate no subluxation. There is moderate disc space narrowing at L2-L3 and L4-L5. L1-L2: Mild annular disc bulge with mild bilateral neural foraminal narrowing. L2-L3: Mild to moderate annular disc bulge with mild to moderate bilateral neural foraminal narrowing. L3-L4: Mild diffuse disc bulge with right posterolateral disc protrusion. Moderate right and mild left neural foraminal narrowing. L4-L5: Mild diffuse disc bulge with mild bilateral neural foraminal narrowing. L5-S1: Moderate diffuse disc bulge with bilateral facet hypertrophy. Moderate to high-grade bilateral neural foraminal narrowing. IMPRESSION: No acute fracture. Multilevel changes of degenerative disc disease with neural foraminal narrowing most evident bilaterally at L5-S1. Reviewed, Interpreted and Dictated by Ryan Lomeli MD Transcribed by Gaurang Beverly Authenticated and [facility]
--- NOTE | 2022-08-18 15:56 | HMH.EDGENADL ---
Discharge Plan Disposition Patient Disposition: Home, Self-Care Condition: Good Chief Complaint: Fall Prescriptions Prescriptions: No Action venlafaxine 37.5 mg tablet 37.5 mg PO BID acetaminophen 650 mg tablet extended release 650 mg PO ONCE PRN (Reason: pain ) metformin 500 mg tablet 500 mg PO BID aspirin 81 mg tablet,chewable 81 mg PO DAILY gabapentin 100 mg capsule 100 mg PO DAILY atorvastatin 80 mg tablet 40 mg PO DAILY 30 Days Qty: 15 metoprolol succinate 50 mg tablet extended release 24 hr 50 mg PO DAILY quetiapine [Seroquel] 50 mg tablet 50 mg PO BID Calcium 600 + D(3) 600 mg calcium- 200 unit capsule 600 cap PO DAILY diazepam 2 mg tablet 2 mg PO DAILYP PRN (Reason: Anxiety) furosemide 40 MG tablet 40 mg PO DAILY buspirone 10 MG tablet 5 mg PO HS cephalexin [cephalexin] 500 mg capsule 500 mg PO TID Qty: 30 0RF lisinopril 20 MG tablet 20 mg PO DAILY isosorbide mononitrate 30 mg tablet extended release 24 hr See Rx Instructions .ROUTE .COMPLEX Rx Instructions: TAKE ONE TABLET BY MOUTH ONCE A DAY omeprazole 40 mg capsule,delayed release(DR/EC) 40 mg PO DAILY famotidine [Pepcid] 20 mg tablet 20 mg PO DAILY Referrals Follow up/Referrals: Hansel Ruff MD [Primary Care Provider] - See instructions Activity Restrictions/Add. Instructions Additional Instructions/Restrictions: Follow-up with Dr. Ruff, call for appointment. Follow-up with cardiology as scheduled for further testing and care. Clinical Impressions Clinical Impression: Dizziness, Fall Instructions Patient Instructions: How to Prevent Falls, DI for Dizziness-Nonvertigo Discharge ED Provider: Juan Reeves General Adult HPI General Chief complaint: Fall Stated complaint: Fall Time Seen by Provider: 08/18/22 15:44 Mode of Arrival: EMS Source of Information: Patient and EMS Limitations: No Limitations Description of Symptoms (Recalled from ER Triage Doc. by RN): pt arrives via ems. pt reports having a fall this am and hitting the bathrub at home. pt comesplains of headache, back pain, neck pain and bilateral arm pain. History of Present Illness HPI narrative: The patient is brought in by ambulance. She states that she was on the commode this morning and stood up and got dizzy. Says that everything was spinning around and she fell into the bathtub. She complains of hitting the back of her head and complains of pain all along her spine from her neck down to her lower back. Bilateral posterior upper arm pain. States that she has been getting dizzy when she stands up for several days. She saw Dr. Smith in the office 4 days ago for the same. Some testing has been ordered. Her blood pressure was high at the time of evaluation according to family. Systolic 140s according to them. Related Data Home Medications Medication Instructions Recorded Confirmed acetaminophen 650 mg 650 mg PO ONCE PRN pain 07/26/17 08/18/22 tablet,extended release venlafaxine 37.5 mg tablet 37.5 mg PO BID mood 07/26/17 08/18/22 aspirin 81 mg chewable tablet 81 mg PO DAILY Heart disease 05/13/18 08/18/22 gabapentin 100 mg capsule 100 mg PO DAILY Pain 05/13/18 08/18/22 metformin 500 mg tablet 500 mg PO BID Diabetes 05/13/18 08/18/22 atorvastatin 80 mg tablet 40 mg PO DAILY Cholesterol 30 days 11/25/18 08/18/22 #15 tabs calcium carbonate 600 mg-vitamin 600 cap PO DAILY Supplement 12/13/18 08/18/22 D3 5 mcg (200 unit) capsule (Calcium 600 + D(3)) metoprolol succinate 50 mg 50 mg PO DAILY Heart disease 12/13/18 08/18/22 tablet,extended release 24 hr quetiapine 50 mg tablet (Seroquel) 50 mg PO BID mood 12/13/18 08/18/22 diazepam 2 mg tablet 2 mg PO DAILYP PRN Anxiety 12/01/19 08/18/22 furosemide 40 mg tablet 40 mg PO DAILY chf 09/26/20 08/18/22 buspirone 10 mg tablet 5 mg PO HS . 12/13/20 08/18/22 famotidine 20 mg tablet (Pepcid)
--- NOTE | 2022-08-18 16:32 | ECG_ITS ---
APPROVED REPORT Exam: Resting ECG HR:60 bpm ECG Measurements Heart Rate 60 AXES TX 151 P 66 QRSd 162 QRS 24 QT 477 T 39 QTc 479 Conclusion ELECTRONIC VENTRICULAR PACEMAKER Abnormal ECG UNCONFIRMED REPORT Electronically signed by : Davin White MD 08/19/2022 21:29:37
[2022-08-18 17:43] LABS: Basophils % 0.6 % (0.1-2.0); Eosinophils % 0.6 % (0.1-12.0); Hemoglobin 9.5 g/dL (12.2-16.2); Lymphocytes # 1.4 K/mm3 (0.7-4.5); Lymphocytes % 20.2 % (10-50); Mean Corpuscular HGB Conc 32.7 g/dL (31.8-35.4); Mean Corpuscular Hemoglobin 31.5 pg (27.0-31.2); Mean Corpuscular Volume 96.4 fl (81-99); Mean Platelet Volume 8.3 fl (7.4-10.4); Monocytes # 0.4 K/mm3 (0.1-1.0); Monocytes % 5.2 % (1.7-9.3); Neutrophils % 73.4 % (37.0-80.0); Platelet Count 267 K/mm3 (142-424); Red Blood Count 3.01 M/mm3 (4.20-5.40); Red Cell Distribution Width 15.2 % (11.5-17.5); White Blood Count 6.8 K/mm3 (4.8-10.8)
[2022-08-18 17:51] LABS: Chloride 104 mmol/L (98-107); Potassium 4.1 mmoL/L (3.5-5.1); Sodium 140 mmol/L (136-145)
[2022-08-18 17:54] LABS: Blood Urea Nitrogen 11 mg/dl (7-17); Creatinine Clearance Estimated 43 mL/min (50-200); Estimated Glomerular Filt Rate 82 ml/min (>60); GFR (African American) 99 ML/MIN (>60)
[2022-08-18 17:55] LABS: Anion Gap 12.1 mEq/L (5-15); Calcium 8.8 mg/dl (8.4-10.2); Carbon Dioxide 28 mmol/L (22.0-30.0); Glucose 95 mg/dl (74-100)
[2022-08-18 18:09] LABS: Troponin I < 0.01 ng/ml (0.00-0.034)
== END 2022-08-18 18:47 | disposition home or self-care (01) ==
PROVIDERS: Emergency Provider Emergency Medicine; PCP Internal Medicine
DX: R42 Dizziness and giddiness (principal); R51.9 Headache, unspecified; M54.9 Dorsalgia, unspecified; M54.2 Cervicalgia; M79.601 Pain in right arm; M79.602 Pain in left arm; W19.XXXA Unspecified fall, initial encounter; I25.10 Atherosclerotic heart disease of native coronary artery without angina pectoris; I65.23 Occlusion and stenosis of bilateral carotid arteries; Z95.1 Presence of aortocoronary bypass graft
CPT/HCPCS: 70450; 72125; 72128; 72131; 73060; 80048; 84484; 85025; 93005; 99285

== ENCOUNTER → 2022-08-20 07:13 | Outpatient (CLI) | payer MEDICARE, OTHER, SELFPAY ==
--- NOTE | 2022-08-20 | CA_ITS ---
APPROVED REPORT Exam: Pharmacologic Technologist: Jeanne Clark, Ht: 5 ft 4 in Wt: 119 lbs BSA: 1.57 m2 HR: 63 bpm BP: 175/76 mmHg Medical History Medications: Lisinopril,,,,, Omeprazole,,,,, Aspirin,,,,, Metoprolol,,,,, Metformin,,,,, Cephalexin,,,,, Gabapentin,,,,, Diazepam,,,,, Atorvastatin,,,,, Buspirone,,,,, Seroquel,,,,, Venlafaxine,,,,, Stress Test Details Test: LEXISCAN Reason for pharmacologic stress test: physical limitation. HR Resting HR: 63 bpm Max Heart Rate (APMHR): 147.198823 bpm Max HR Achieved: 91 bpm Target HR (85% APMHR): 124.971640 bpm % of APMHR: 61.90 Recovery HR: 83 bpm BP Resting BP: 175/76 mmHg Max BP: 175/76 mmHg Recovery BP: 126.0/63.0 mmHg ECG Resting ECG: SR with IVCD Clinical Exercise duration: 04:07 min Highest Stage Achieved: Stress ECG Conclusion Symptoms: SOA with Lexiscan. No chest pain. Arrhythmias/Ectopy: none ST-T Changes: <1.5mm ST segment depression. Test Summary REST . . . . . . . Resting REST 15:35 . . 63 . 175/ 76 . . Stage 1 01:00 . . 85 . . . . Stage 2 01:00 . . 91 . 121/ 55 . . Stage 3 01:00 . . 91 . 133/ 59 . . Stage 4 01:00 . . 86 . 140/ 64 . . Stage 4 01:07 . . 86 . 140/ 64 . Stop exercise at 04:07 RECOVERY 01:00 . . 84 . 135/ 9 . . RECOVERY 02:00 . . 84 . 138/ 59 . . RECOVERY 02:15 . . 83 . 126/ 63 . . Electronically signed by : Tye Smith MD 08/21/2022 09:53:10
--- NOTE | 2022-08-20 07:31 | NM_ITS ---
APPROVED REPORT Exam: Nuclear Stress Test Indication: CHEST PAIN AND SHORT OF BREATH Patient Location: Outpatient Stress Tech: Jeanne Flores [place] Tech:JOSSELYN Oliver RT(R)(N) Ht: 4 ft 9 in Wt: 130 lbs Bra Size: 32A HR: 63 bpm BP: 175/76 mmHg BSA: 1.50 m2 TID: 0.96 BMI: 28.1 History: CHEST PAIN AND SHORT OF BREATH Procedure: Patient received 0.1 mg of intravenous Lexiscan, resting heart rate 63 bpm, resting blood pressure 175/76 mmHg, with Lexiscan maximum heart rate achieved was 91 bpm which is 85 % of the maximum predicted heart rate and blood pressure was 175/76 mmHg. With Lexiscan, patient denied any complaint of chest pain. PT WAS UNABLE TO LAY ON HER BELLY TODAY BECAUSE SHE FELL BACK IN THE BATHTUB. Electrocardiogram Resting electrocardiogram shows electronically paced rhythm, with intraventricular conduction delay, with Lexiscan there is less than 1.[address] segment depression noted from the baseline EKG. The EKG portion of the Lexiscan is nondiagnostic. Cardiac Stress and Resting SPECT Images: Cardiac Stress and Resting SPECT images were obtained using technetium 99m Myoview 30.1 mCi stress and 10.34 mCi at rest. Gated SPECT analysis of segmental wall motion and calculation of the ejection fraction also done. Prone images were not obtained. Cardiac stress and rest SPECT images showed partial reversible defect involving the apex and anteroseptal wall consistent with mixed ischemia and scar, computer derived ejection fraction is 60% with mild apex and anteroseptal wall hypokinesis, right ventricle is mildly enlarged with normal contractility. Conclusion: 1. The EKG portion of the Lexiscan is nondiagnostic. 2. Scintigraphic evidence of mixed ischemia and scar involving the apex and anteroseptal wall, computer derived ejection fraction is 60% with segmental wall motion abnormality described above, right ventricle is mildly enlarged with normal contractility. 3. Abnormal Lexiscan Myoview study. Electronically signed by : Tye Smith MD 08/21/2022 10:03:31
--- NOTE | 2022-08-20 08:30 | CA_ITS ---
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, s/p fall 08/18/22, CP, SOB, HTN 2D Dimensions Aortic Root 2.91 cm F: 2.7 - 3.3 LA Volume 62.30 mL Left Atrium 3.88 cm F: 2.7 - 3.8 LA Volume Index 36.86 mL/m2 (M/F) 16-34 LVOT 2.00 cm (M/F) 1.5-2.5 M-Mode Dimensions RVDd 2.49 cm (0.9-2.6) LA Diam 3.60 cm (1.9-4.0) LVDd 4.70 cm (3.5-5.7) Ao Diam 2.95 cm (2.0-3.7) LVDs 3.18 cm (3.5-5.7) IVSd 0.90 cm (0.6-1.1) PWd 0.78 cm (0.6-1.1) EF (Teich) 56.40% EPSs 1.26 cm FS 29.30% EDV (Teich) 92.40 mL TAPSE 1.61 (<1.7) ESV (Teich) 40.30 mL LV Diastology E Decel Time 197.00 (160-240 msec) E/A Ratio 0.95 MED E' 5.70 (< 7 cm/sec) MED A' 5.70 cm/s E'/MED E' Ratio 19.23 (>14) LAT E' 8.10 (<10 cm/sec) LAT A' 7.00 cm/s E/LAT E' Ratio 13.53 (>14) Aortic Valve LVOT Max 110.00 (70-110 cm/s) LVOT VTI 24.20 cm AoV Peak Med. 187.00 (50-130 cm/s) AO Peak GR. 14.00 mmHg AO Mean GR. 8.00 (<5 mmHg) AO VTI 44.62 (18-25 cm) JORY (VTI) 1.70 (2.5-4.5 cm2) Mitral Valve MV A Velocity 115.00 (40-130 cm/s) E/A Ratio 0.95 MV Decel. Time 197.00 (160-240 ms) MV PHT 63.00 ms Pulmonary Valve PV Peak Velocity 90.00 (50-150 cm/s) PA End VMAX 140.00 cm/s Tricuspid Valve TR P. Velocity 293.00 cm/s RAP Estimate 10.00 mmHg RVSP 44.30 mmHg Left Ventricle Left atrium is mildly enlarged cardiophrenic: Normal size mild concentric left ventricular hypertrophy, estimated ejection fraction of 55% with no regional wall motion abnormality, grade 2 diastolic dysfunction seen by tissue Doppler evidence of late left atrial pressure. Right Ventricle Right atrium left ventricular mildly enlarged with normal contractility, pacemaker lead seen in right atrium and right ventricle. Aortic Valve Aortic valve is bioprosthetic, there is acceptable gradient, there is no aortic insufficiency. Mitral Valve Mitral valve leafletsare minimally thickened, there is mild mitral regurgitation. Tricuspid Valve Tricuspid valve grossly normal, there is mild tricuspid regurgitation, calculated ventricular systolic pressure is 44 mmHg. Pulmonic Valve Pulmonic valve is poorly visualized. Great Vessels Aortic root is normal size. Inferior vena cava is poorly visualized. Pericardium No significant pericardial effusion noted. Conclusion 1. Mild biatrial enlargement, normal left ventricular size, mild concentric left ventricular hypertrophy, estimated ejection fraction 55%, grade 2 diastolic dysfunction seen with tissue Doppler evidence of trace left atrial pressure. 2 mildly enlarged right ventricle with normal contractility. 3. Normal functioning bioprosthetic valve in aortic position. 4. Mild mitral and tricuspid regurgitation. Calculated right ventricular systolic pressure is 44 mmHg. 5. No significant pericardial effusion noted. 6. Inferior vena cava is poorly visualized. Electronically signed by : Tye Smith MD 08/21/2022 17:44:11
== END ==
PROVIDERS: PCP Internal Medicine; Visit Provider Internal Medicine Cardiovascular Disease
DX: R06.02 Shortness of breath (principal); I20.8 Other forms of angina pectoris
CPT/HCPCS: 78452; 93017; 93306; A9502; J2785

== ENCOUNTER → 2022-09-16 16:51 | Outpatient (CLI) | payer MEDICARE, OTHER, SELFPAY ==
[2022-09-16 17:34] LABS: Basophils # 0.1 K/mm3 (0-0.2); Eosinophils # 0.1 K/mm3 (0.0-0.4); Eosinophils % 1.3 % (0.1-12.0); Hematocrit 31.8 % (37.0-47.0); Hemoglobin 10.7 g/dL (12.2-16.2); Lymphocytes # 1.4 K/mm3 (0.7-4.5); Lymphocytes % 24.7 % (10-50); Mean Corpuscular HGB Conc 33.6 g/dL (31.8-35.4); Mean Corpuscular Hemoglobin 32.5 pg (27.0-31.2); Mean Corpuscular Volume 96.6 fl (81-99); Mean Platelet Volume 8.5 fl (7.4-10.4); Monocytes # 0.4 K/mm3 (0.1-1.0); Monocytes % 7.5 % (1.7-9.3); Neutrophils # 3.8 K/mm3 (1.8-7.8); Neutrophils % 65.6 % (37.0-80.0); Platelet Count 260 K/mm3 (142-424); Red Blood Count 3.29 M/mm3 (4.20-5.40); Red Cell Distribution Width 15.2 % (11.5-17.5); Reticulocyte % (Auto) 1.3 % (0.9-3.2); White Blood Count 5.8 K/mm3 (4.8-10.8)
[2022-09-16 19:00] LABS: Alanine Aminotransferase 17 U/L (12-78); Albumin Level 4.8 g/dl (3.5-5.0); Albumin/Globulin Ratio 2.3 (1.1-1.8); Alkaline Phosphatase 85 U/L (38-126); Amylase 107 U/L (30-110); Anion Gap 12.8 mEq/L (5-15); Aspartate Amino Transferase 22 U/L (14-36); Bilirubin,Total 0.5 mg/dl (0.2-1.3); Blood Urea Nitrogen 14 mg/dl (7-17); Calcium 9.4 mg/dl (8.4-10.2); Carbon Dioxide 29 mmol/L (22.0-30.0); Chloride 100 mmol/L (98-107); Estimated Glomerular Filt Rate 82 ml/min (>60); GFR (African American) 99 ML/MIN (>60); Globulin 2.1 g/dL (1.3-3.2); Glucose 123 mg/dl (74-100); Potassium 4.8 mmoL/L (3.5-5.1); Sodium 137 mmol/L (136-145); Total Protein,Serum 6.9 g/dl (6.3-8.2)
[2022-09-16 21:53] LABS: Iron 87 ug/dL (37-170)
[2022-09-16 22:02] LABS: Total Iron Binding Capacity 266 ug/dL (265-497)
== END ==
PROVIDERS: PCP Internal Medicine; Visit Provider Internal Medicine
DX: R10.13 Epigastric pain (principal); D64.9 Anemia, unspecified
CPT/HCPCS: 80053; 82150; 83540; 83550; 85025; 85044

== ENCOUNTER 2022-09-24 12:16 | Observation (INO) | payer MEDICARE, OTHER, SELFPAY ==
[2022-09-24] VITALS (23 sets, daily range): BP systolic 102–179; BP diastolic 46–106; PULSE 60–77; RESP 15–20; TEMP 36.6–37; O2SAT 93–100; BMI 19.7
--- NOTE | 2022-09-24 08:15 | IR_ITS ---
APPROVED REPORT Patient Location: Outpatient PROCEDURES Selective coronary angiogram Selective engagement of the saphenous vein graft to the ramus intermedius Drug-eluting stent deployment to the ostial proximal mid left main artery Drug-eluting stent deployment to the circumflex artery Drug-eluting stent deployment to the ostial proximal LAD INDICATION High risk abnormal Myoview, Accelerated angina pectoris, History of coronary bypass surgery Informed consent was obtained prior to the procedure. COMPLICATIONS None Estimated Blood Loss: Less than 10 ML TECHNIQUE 1% lidocaine used anesthetize the right anterior aspect of the right wrist the right radial artery was accessed via the Salinger technique and a 6 Arabic hydrophilic sheath was placed in the right radial artery followed by an arterial cocktail using magnesium sulfate heparin lidocaine and nitroglycerin. A LendLayer guide catheter was used to perform selective coronary angiography as well as selective engagement of the saphenous vein graft to the ramus intermedius. By report only 1 vein graft was patent and patient was noted to have an occluded or atretic OCAMPO graft to an LAD. Based on the anatomy after angiography was performed the circumflex artery was being supplied by a severely diseased left main artery. The ramus intermedius which was bypassed had a proximal 90% stenosis which was not adequately backfilling the circumflex artery. Therapeutic heparin was administered giving a therapeutic ACT and wire was placed in the circumflex artery. A 3 mm x 38 mm resolute Per stent was deployed in the ostial segment of the left main artery extending into the proximal circumflex artery and then deployed at 16 david. The balloon was brought back and deployed at 22 david in the left main artery. There was excellent flow going down the [place] circumflex artery with excellent improvement. This also demonstrated the LAD had some scant competitive flow which was felt to be from the atretic OCAMPO graft. By report patient had only 1 vein graft patent. A wire was placed into the proximal LAD and predilatation was made. This demonstrated there was additional vein graft supplying what appeared to be the LAD. A 3.5 x 30 mm resolute [place] stent was then deployed in the proximal LAD. An additional 3.5 x 22 mm resolute [place] stent was then placed proximal to this extending back into the left main artery and deployed at 22 david. The balloon was brought back and then deployed again at 24 david. This demonstrated wide patency of the LAD with inline flow. At this point it was abundantly clear there was a vein graft supplying the LAD however distal to the saphenous vein graft anastomosis the LAD was subtotally occluded. With excellent inline flow into the LAD as well as inline flow into the large circumflex artery patient appeared to have adequate revascularization. The vein graft supplying the ramus intermedius was patent and although diseased the stenotic area in the saphenous vein graft supplying this ramus intermedius appeared to be adequately sized to the ramus. A 4 mm balloon was then used to post dilate throughout the proximal ostial LAD segment back into the left main artery. Intravascular ultrasound probe was then advanced which demonstrated wide patency of the proximal LAD stent with adequate stenting back into the left main artery and left coronary cusp. After achieving excellent angiographic results the apparatus was removed the sheath was removed and hemostasis was achieved using TR banding patient was admitted to the hospital due to the complexity of the procedure with copious contrast usage ANGIOGRAPHIC RESULTS The left main artery Has an ostial greater than 80
--- NOTE | 2022-09-24 12:57 | PC.NURSE ---
received report from Development Educator, RN
[2022-09-24 13:45] LABS: CATHL Activated Clotting Time > 400 SEC (74-125)
[2022-09-24 13:45] LABS: CATHL Activated Clotting Time > 400 SEC (74-125)
--- NOTE | 2022-09-24 13:56 | PC.NURSE ---
Pt arrived to the floor at this time, via stretcher with labor utilization superintendent
--- NOTE | 2022-09-24 13:56 | PC.NURSE ---
patient arrived to the unit.
--- NOTE | 2022-09-24 15:36 | HMH.PHAINT1 ---
Pharmacy Intervention Comments: MEDICATION RECONCILIATION COMPLETED ON PATIENT USING EXTERNAL FILL HISTORY FROM PHARMACY AND LIST FROM CARDIOLOGY OFFICE. -ESTIVEN JONES, NOELD
--- NOTE | 2022-09-24 16:45 | EXP.HP ---
History of Present Illness *Admission Date: 09/24/22 *Reason for visit:: Chief complaint: Unstable angina *History of present illness: This is a 71-year-old female who underwent left heart cath this afternoon and is being admitted for observation through the night secondary to her home life. 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 She characterizes the pain as dull and achy and it radiates to her shoulders. She reports no associated diaphoresis, nausea vomiting, palpitations or confusion. She underwent left heart cath with stent deployment this afternoon. She lives alone and currently has no transportation home. [facility] Medical History Carotid artery stenosis Coronary artery disease Surgical History 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 Social History Smoking Status: Never smoker second hand exposure: Yes alcohol intake: never substance use type: denies use current occupational status: retired Travel in the last 8 weeks: None household members: family housing: apartment current occupational exposures/hazards: No caffeine: Yes Review of Systems Review of Systems Review of systems:: pertinent systems reviewed and negative unless documented below Meds Home Medications and Allergies Home Medications Medication Instructions Recorded Confirmed Type venlafaxine 37.5 mg tablet 37.5 mg PO BID mood 07/26/17 09/24/22 History aspirin 81 mg chewable tablet 81 mg PO DAILY Heart disease 05/13/18 09/24/22 History gabapentin 100 mg capsule 200 mg PO HS Pain 05/13/18 09/24/22 History metformin 500 mg tablet 500 mg PO BID Diabetes 05/13/18 09/24/22 History calcium carbonate 600 mg-vitamin 600 cap PO DAILY Supplement 12/13/18 09/24/22 History D3 5 mcg (200 unit) capsule (Calcium 600 + D(3)) metoprolol succinate 50 mg 50 mg PO DAILY High blood pressure 12/13/18 09/24/22 History tablet,extended release 24 hr quetiapine 50 mg tablet (Seroquel) 50 mg PO BID mood 12/13/18 09/24/22 History diazepam 2 mg tablet 2 mg PO TID Anxiety 12/01/19 09/24/22 History famotidine 20 mg tablet (Pepcid) 20 mg PO DAILY Acid reflux 08/18/22 09/24/22 History isosorbide mononitrate 30 mg 30 mg PO DAILY Chest pain 08/18/22 09/24/22 History tablet,extended release 24 hr lisinopril 20 mg tablet 20 mg PO DAILY High blood pressure 08/18/22 09/24/22 History omeprazole 40 mg capsule,delayed 40 mg PO DAILY Acid reflux 08/18/22 09/24/22 History release acetaminophen 500 mg tablet (Pain 500 - 1,000 mg PO Q6HP PRN Pain 09/24/22 09/24/22 History Relief Extra Strength (acetaminophen)) atorvastatin 40 mg tablet 40 mg PO DAILY Cholesterol 09/24/22 09/24/22 History New Prescriptions to Start Prescriptions: Allergies Allergy/AdvReac Type Severity Reaction Status Date / Time codeine [CODEINE] Allergy Unknown WEAK Verified 09/21/22 14:02 hydrochlorothiazide Allergy Unknown I-RASH Verified 09/21/22 14:02 [HYDROCHLOROTHIAZIDE] hydrocodone [HYDROCODONE] Allergy Unknown I-RASH Verified 09/21/22 14:02 metoclopramide Allergy Unknown SLURRED Verified 09/21/22 14:02 [METOCLOPRAMIDE] SPEECH, WEAK nifedipine [NIFEDIPINE] Allergy Unknown I-HIVES Verified 09/21/22 14:02 prazosin [PRAZOSIN] Allergy Unknown ITCHING/WEA Verified 09/21/22 14:02 K triamterene [TRIAMTERENE] Allergy Unknown I-RASH Verified 09/21/22 14:02 Exam Data for Last 24 hours Vital signs and Labs for Last 24 Hours: Temp Pulse Resp BP Pulse Ox 97.8 F 69 17 135/76 100 09/24/22 14:00 09/24/22 14:00 09/24/22 14:00
--- NOTE | 2022-09-24 17:18 | PC.NURSE ---
Radial armband at 16ml, first air to be removed at 1410. removed 2ml at 1410 removed 2ml at 1425 added 2ml at 1450 removed 2ml at 1510 removed 2ml at 1610 removed 2ml at 1710 added 2ml at 1712 radial armband air pressure at 10
--- NOTE | 2022-09-24 22:08 | CT_ITS ---
PROCEDURE INFORMATION: Exam: CT Head Without Contrast Exam date and time: 09/24/2022 10:19 PM Age: 71 years old Clinical indication: Injury or trauma; Fall; Additional info: Fall hit head TECHNIQUE: Imaging protocol: Computed tomography of the head without contrast. Radiation optimization: All CT scans at this facility use at least one of these dose optimization techniques: automated exposure control; mA and/or kV adjustment per patient size (includes targeted exams where dose is matched to clinical indication); or iterative reconstruction. REPORTING DATA: Count of CT and Cardiac NM exams in prior 12 months: This patient has received 5 known CTs and 0 known cardiac nuclear medicine studies in the 12 months prior to the current study. COMPARISON: CT HEAD/BRAIN WO CON 08/18/2022 2:27 PM FINDINGS: Brain: No large territorial infarction. No hemorrhage. No mass effect or midline shift. Cerebral ventricles: No ventriculomegaly. Paranasal sinuses: No fluid levels. Mastoid air cells: Visualized mastoid air cells are well aerated. Bones/joints: No acute fracture. Soft tissues: No significant soft tissue abnormality. IMPRESSION: No acute intracranial abnormality.
--- NOTE | 2022-09-24 22:09 | XR_ITS ---
PROCEDURE INFORMATION: Exam: XR Left Shoulder Exam date and time: 09/24/2022 10:27 PM Age: 71 years old Clinical indication: Injury or trauma; Fall; Blunt trauma (contusions or hematomas); Arm, upper; Left; Additional info: Fall, pain TECHNIQUE: Imaging protocol: Radiologic exam of the left shoulder. Views: 2 or more views. COMPARISON: CR XR HUMERUS LT 08/18/2022 2:44 PM FINDINGS: Tubes, catheters and devices: Cardiac pacing device in the left chest wall. Bones/joints: Median sternotomy wires. No acute fracture or dislocation. Soft tissues: Normal. IMPRESSION: No acute findings.
--- NOTE | 2022-09-24 22:09 | XR_ITS ---
PROCEDURE INFORMATION: Exam: XR Left Humerus Exam date and time: 09/24/2022 10:27 PM Age: 71 years old Clinical indication: Injury or trauma; Fall; Blunt trauma (contusions or hematomas); Arm, upper; Left; Additional info: Fall pain TECHNIQUE: Imaging protocol: Radiologic exam of the left humerus. Views: 2 or more views. Total images: 2 COMPARISON: CR XR HUMERUS LT 08/18/2022 2:44 PM FINDINGS: Bones/joints: Osteopenia. No acute fracture or joint dislocation. No significant degenerative arthropathy. No concerning bone lesions or calcifications. Soft tissues: Unremarkable soft tissues. IMPRESSION: Negative left humerus.
--- NOTE | 2022-09-24 22:12 | XR_ITS ---
PROCEDURE INFORMATION: Exam: XR Left Femur Exam date and time: 09/24/2022 10:27 PM Age: 71 years old Clinical indication: Injury or trauma; Fall; Blunt trauma; Thigh or upper leg; Left; Additional info: Fall, pain TECHNIQUE: Imaging protocol: Radiologic exam of the left femur. Views: 2 views. COMPARISON: CT ABDOMEN PELVIS W CON 04/10/2022 9:05 PM FINDINGS: Bones/joints: Degenerative changes of the knee and hip. No acute fracture or dislocation. Soft tissues: Unremarkable. IMPRESSION: Chronic changes without acute process.
--- NOTE | 2022-09-24 22:12 | XR_ITS ---
PROCEDURE INFORMATION: Exam: XR Left Hip Exam date and time: 09/24/2022 10:27 PM Age: 71 years old Clinical indication: Injury or trauma; Fall; Blunt trauma (contusions or hematomas); Left; Hip; Additional info: Fall, pain TECHNIQUE: Imaging protocol: Radiologic exam of the left hip. Views: 2 or 3 views hip with pelvis when performed. Total images: 3 COMPARISON: CT ABDOMEN PELVIS W CON 04/10/2022 9:05 PM FINDINGS: Bones/joints: No acute fracture or joint dislocation. Pelvic ring is maintained. No widening of the pubic symphysis or sacroiliac joints. No significant degenerative arthropathy. Proximal femurs are intact. Partially visualized moderate degenerative changes lower lumbar spine. Soft tissues: Surgical clips medial left lower extremity and left groin. Unremarkable soft tissues. Gastrointestinal tract: Nonobstructive bowel gas pattern. Organs: Contrast within the urinary bladder. IMPRESSION: Negative left hip and pelvis.
--- NOTE | 2022-09-24 22:15 | EXP.EVENT.NO ---
2200 EDDA Garcia called reported patient fell, went to bedside to assess patient, oriented able to recall events, reports tripped while trying to go to the restroom, denies head ache or scalp pain, pain on movement and palpation of Left upper and lower extremities. Assessment of patient immediately after reported event Reports hit head on the right, no pain on palpation of the scalp, no laceration or hematoma noted Musculoskeletal: Pain on palpation over left shoulder Pain over palpation and movement of humerus on the left Pain on palpation over left hip Pain on movement and palpation of femur on the left Neurologic: Alert and oriented, able to recall events leading up to fall and state why she fell Imaging ordered: CT head without contrast Left Shoulder Left Humerus Left Hip Left Femur Neuro checks q 1 hour 225 patient back to floor from imaging, EDDA Garcia called and stated patient back to floor, appeared confused. Went into to assess patient with Primary RN Radha, able to state name and recall events (fall and reason of fall). Placed on falls precautions. Neuro checks ordered. Discussed with RN. Blood glucose 139 mg/dl per RN Falls protocol order CT of the head showed no acute findings. Imaging of extremities with no acute findings [place] Technician informed by RN [phone] Patient with no further events reported overnight RN reported patient at same cognitive level
[2022-09-25] VITALS: BP 121/66; PULSE 60; RESP 18; TEMP 36.9; O2SAT 97
[2022-09-25 00:30] LABS: POC Glucose,Bedside 132 (70-110)
[2022-09-25 04:00] VITALS: BP 101/49; PULSE 60; RESP 18; TEMP 36.4; O2SAT 97; BMI 21.4
--- NOTE | 2022-09-25 04:29 | PC.NURSE ---
pt rounded on throughout the night, assisted w/ bathroom as well. Trash and linens taken out.
[2022-09-25 05:57] LABS: Basophils % 0.3 % (0.1-2.0); Eosinophils % 0.3 % (0.1-12.0); Hematocrit 28.8 % (37.0-47.0); Hemoglobin 9.6 g/dL (12.2-16.2); Lymphocytes # 1.1 K/mm3 (0.7-4.5); Lymphocytes % 15.7 % (10-50); Mean Corpuscular HGB Conc 33.3 g/dL (31.8-35.4); Mean Corpuscular Volume 96.3 fl (81-99); Mean Platelet Volume 8.3 fl (7.4-10.4); Monocytes # 0.4 K/mm3 (0.1-1.0); Monocytes % 6.1 % (1.7-9.3); Neutrophils # 5.6 K/mm3 (1.8-7.8); Neutrophils % 77.5 % (37.0-80.0); Platelet Count 195 K/mm3 (142-424); Red Blood Count 2.99 M/mm3 (4.20-5.40); Red Cell Distribution Width 15.3 % (11.5-17.5); White Blood Count 7.3 K/mm3 (4.8-10.8)
[2022-09-25 06:14] LABS: Anion Gap 11.2 mEq/L (5-15); Blood Urea Nitrogen 14 mg/dl (7-17); Calcium 8.8 mg/dl (8.4-10.2); Carbon Dioxide 27 mmol/L (22.0-30.0); Chloride 100 mmol/L (98-107); Creatinine Clearance Estimated 45 mL/min (50-200); Estimated Glomerular Filt Rate 70 ml/min (>60); GFR (African American) 85 ML/MIN (>60); Glucose 105 mg/dl (74-100); Potassium 4.2 mmoL/L (3.5-5.1); Sodium 134 mmol/L (136-145)
[2022-09-25 06:15] LABS: Magnesium 1.9 mg/dl (1.6-2.3)
[2022-09-25 07:03] LABS: Vitamin B12 592 pg/mL (239-931)
[2022-09-25 07:40] VITALS: BP 135/68; PULSE 70; RESP 18; TEMP 36.8; O2SAT 100
[2022-09-25 08:00] VITALS: PULSE 74
--- NOTE | 2022-09-25 08:14 | P.PN_ITS ---
Subjective Subjective Date: 09/25/22 Time: 08:14 Principal diagnosis: Coronary stenting Interval history: 71-year-old white female admitted after cardiac stenting of her left main yesterday. Patient did well from a cardiac standpoint overnight but did fall when trying to get up and go to the bathroom. She did not lose consciousness and states that she tripped. CT of the head was unremarkable for acute changes and x-rays of left shoulder, left femur, left hip and left humerus showed no evidence of fractures. This a.m. patient has no complaints and is anxious to go home. Exam Data for Last 24 hours Vital signs and Labs for Last 24 Hours: Temp Pulse Resp BP Pulse Ox 98.2 F 70 18 135/68 100 09/25/22 07:40 09/25/22 07:40 09/25/22 07:40 09/25/22 07:40 09/25/22 07:40 Laboratory Results - last 24 hr 09/24/22 11:09: Activated Clotting Time > 400 H* 09/24/22 11:46: Activated Clotting Time > 400 H* 09/24/22 22:50: POC Glucose 132 H 09/25/22 05:35: WBC 7.3, RBC 2.99 L, Hgb 9.6 L, Hct 28.8 L, MCV 96.3, MCH 32.0 H , MCHC 33.3, RDW 15.3, Plt Count 195, MPV 8.3, Neut % (Auto) 77.5, Lymph % (Auto) 15.7, [place] % (Auto) 6.1, Eos % (Auto) 0.3, Baso % (Auto) 0.3, Neut # (Auto) 5.6, Lymph # (Auto) 1.1, [place] # (Auto) 0.4, Eos # (Auto) 0.0, Baso # (Auto) 0.0 09/25/22 05:35: Sodium 134 L, Potassium 4.2, Chloride 100, Carbon Dioxide 27, Anion Gap 11.2, BUN 14, Creatinine 0.80, Estimated Creat Clear 45, Estimated GFR 70, Est GFR ( Amer) 85, Glucose 105 H, Calcium 8.8 09/25/22 05:35: Magnesium 1.9, Vitamin B12 592 I & O for Last 24 hours: Intake & Output 0309/23/22 09/24/22 09/25/22 11:59 11:59 11:59 11:59 Intake Total 240 / 240 Output Total 520 / 520 Balance -280 / -280 Weight 115 lb 125 lb 3 oz Constitutional Constitutional: no acute distress *Routine Respiratory Exam Respiratory: Present CTA bilaterally *Routine Cardiovascular Exam Cardiovascular: Present RRR *Routine Neurological Exam Neurological: Present alert and oriented X3 Progress Note: A&P Assessment and plan (1) Unstable angina pectoris: Status: Acute (2) Coronary artery disease: Status: Acute Assessment and Plan Assessment and Plan for All Diagnoses:: CAD with history of bypass. Status post left main coronary stenting yesterday. Clinically stable for discharge home. Continue home medications of aspirin 81 mg daily, atorvastatin 40 mg daily, isosorbide mononitrate ER 30 mg daily, lisinopril 20 mg daily, metoprolol succinate ER 50 mg daily. Keep appointment next week for pacemaker interrogation and for follow-up.
--- NOTE | 2022-09-25 08:27 | EXP.DC.SUM ---
General Admission date:: 09/24/22 Discharge date: 09/25/22 HPI HPI HPI: This is a 71-year-old female who underwent left heart cath this afternoon and is being admitted for observation through the night secondary to her home life. 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 She characterizes the pain as dull and achy and it radiates to her shoulders. She reports no associated diaphoresis, nausea vomiting, palpitations or confusion. She underwent left heart cath with stent deployment this afternoon. She lives alone and currently has no transportation home. Hospital Course Hospital Course Hospital Course: The patient was admitted to the medical unit with cardiac monitoring. She was provided postprocedural care with no adverse events. The evening of her admission she went to use the bathroom tripped and fell and imaging of her head and affected extremities identified no fractures or acute changes. Subsequently she demonstrated appropriate ambulation with nursing staff assessments. Nursing staff reported that she remained afebrile with stable vital signs and saturated appropriately on room air. Her morning labs identified stable CBC, electrolytes and creatinine. She inquired about discharge home. I spent 35 minutes in [id number] time with the patient and nursing staff concerning the discharge process. We discussed the admitting diagnoses and hospital course. We discussed identified improvement and the patient's desire to be discharged. We reviewed inpatient studies and imaging. The patient voiced understanding on the importance of follow-up with her primary care provider and junior copywriter. The patient plans to be compliant with the medication regimen prescribed and follow-up appointments. She understands that she can return to the emergency department with any sudden changes or concerns. Exam Data for Last 24 hours Vital signs and Labs for Last 24 Hours: Temp Pulse Resp BP Pulse Ox 98.2 F 70 18 135/68 100 09/25/22 07:40 09/25/22 07:40 09/25/22 07:40 09/25/22 07:40 09/25/22 07:40 Laboratory Results - last 24 hr 09/24/22 11:09: Activated Clotting Time > 400 H* 09/24/22 11:46: Activated Clotting Time > 400 H* 09/24/22 22:50: POC Glucose 132 H 09/25/22 05:35: WBC 7.3, RBC 2.99 L, Hgb 9.6 L, Hct 28.8 L, MCV 96.3, MCH 32.0 H, MCHC 33.3, RDW 15.3, Plt Count 195, MPV 8.3, Neut % (Auto) 77.5, Lymph % (Auto) 15.7, [place] % (Auto) 6.1, Eos % (Auto) 0.3, Baso % (Auto) 0.3, Neut # (Auto) 5.6, Lymph # (Auto) 1.1, [place] # (Auto) 0.4, Eos # (Auto) 0.0, Baso # (Auto) 0.0 09/25/22 05:35: Sodium 134 L, Potassium 4.2, Chloride 100, Carbon Dioxide 27, Anion Gap 11.2, BUN 14, Creatinine 0.80, Estimated Creat Clear 45, Estimated GFR 70, Est GFR ( Amer) 85, Glucose 105 H, Calcium 8.8 09/25/22 05:35: Magnesium 1.9, Vitamin B12 592 I & O for Last 24 hours: Intake & Output 09/22/22 09/23/22 09/24/22 09/25/22 23:59 23:59 23:59 23:59 Intake Total 240 / 240 Output Total 520 / 520 0 / 0 Balance -280 / -280 0 / 0 Weight 52.163 kg 56.784 kg Constitutional Constitutional: no acute distress *Routine Respiratory Exam Respiratory: Present CTA bilaterally *Routine Cardiovascular Exam Cardiovascular: Present RRR *Routine Neurological Exam Neurological: Present alert and oriented X3 Results Data Completed and Pending Labs on day of discharge: Labs from last 24 hours 09/25/22 09/25/22 09/25/22 05:35 05:35 05:35 WBC 7.3 RBC 2.99 L Hgb 9.6 L Hct 28.8 L MCV 96.3 MCH 32.0 H MCHC 33.3 RDW 15.3 Plt Count 195 MPV 8.3 Neut % (Auto) 77.5 Lymph % (Auto) 15.7 [place] % (Auto) 6.1 Eos % (Auto) 0.3 Baso % (Auto) 0.3 Neut # (Auto) 5.6 Lymph # (Auto) 1.1 [place] # (Auto) 0.4 Eos # (Auto) 0.0 Baso # (Auto) 0.0 Activated Clotting Time Sodium 134 L
--- NOTE | 2022-09-25 08:32 | HMH.PHACL ---
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 PATIENT VERBALIZED UNDERSTANDING AND HAD NO QUESTIONS AT THIS TIME. -ESTIVEN JONES, PHARMD
--- NOTE | 2022-09-25 09:24 | SW/DCPLANNER ---
I have arranged [employer] for this patient. Patient will discharge home today.
--- NOTE | 2022-09-29 11:20 | CARE MANAGER ---
Attempted x2 to contact patient related to hospital discharge. No VM option. EDDA Chirinos
== END 2022-09-25 11:07 | disposition home or self-care (01) ==
LOC: 2ND 12:16
PROVIDERS: Internal Medicine; Admitting Provider Family Medicine; PCP Internal Medicine; Visit Provider Family Medicine
DX: I25.110 Atherosclerotic heart disease of native coronary artery with unstable angina pectoris; Z79.899 Other long term (current) drug therapy; Z95.1 Presence of aortocoronary bypass graft; E11.9 Type 2 diabetes mellitus without complications; I10 Essential (primary) hypertension; Z20.822 Contact with and (suspected) exposure to COVID-19; W01.0XXA Fall on same level from slipping, tripping and stumbling without subsequent striking against object, initial encounter; Y92.231 Patient bathroom in hospital as the place of occurrence of the external cause
CPT/HCPCS: G0378; G0379; 36415; 70450; 73030; 73060; 73502; 73552; 80048; 82607; 82962; 83735; 85025; 85347; 92928; 93455; 99152; 99153; C1725; C1769; C1874; C1876; C9600; C9803; J1644; Q9967; U0003; U0005

== ENCOUNTER 2022-10-03 16:18 | Emergency (ER) | payer MEDICARE, OTHER, SELFPAY ==
--- NOTE | 2022-10-03 16:24 | ECG_ITS ---
APPROVED REPORT Exam: Resting ECG HR:70 bpm ECG Measurements Heart Rate 70 AXES WV 148 P 63 QRSd 172 QRS -47 QT 437 T 115 QTc 457 Conclusion ELECTRONIC VENTRICULAR PACEMAKER ABNORMAL RHYTHM ECG UNCONFIRMED REPORT Electronically signed by : Davin White MD 10/06/2022 03:11:34
[2022-10-03 16:26] VITALS: BP 186/84; PULSE 73; RESP 16; TEMP 36.5; O2SAT 100; BMI 21.4
[2022-10-03 16:45] LABS: Basophils # 0.1 K/mm3 (0-0.2); Basophils % 0.9 % (0.1-2.0); Eosinophils # 0.1 K/mm3 (0.0-0.4); Eosinophils % 2.3 % (0.1-12.0); Hematocrit 30.4 % (37.0-47.0); Hemoglobin 10.1 g/dL (12.2-16.2); Lymphocytes # 1.2 K/mm3 (0.7-4.5); Lymphocytes % 22.3 % (10-50); Mean Corpuscular HGB Conc 33.3 g/dL (31.8-35.4); Mean Corpuscular Hemoglobin 31.5 pg (27.0-31.2); Mean Corpuscular Volume 94.6 fl (81-99); Mean Platelet Volume 8.2 fl (7.4-10.4); Monocytes # 0.4 K/mm3 (0.1-1.0); Monocytes % 7.1 % (1.7-9.3); Neutrophils # 3.6 K/mm3 (1.8-7.8); Neutrophils % 67.4 % (37.0-80.0); Platelet Count 277 K/mm3 (142-424); Red Blood Count 3.21 M/mm3 (4.20-5.40); Red Cell Distribution Width 15.4 % (11.5-17.5); White Blood Count 5.3 K/mm3 (4.8-10.8)
[2022-10-03 16:46] LABS: Chloride 102 mmol/L (98-107); Potassium 4.6 mmoL/L (3.5-5.1); Sodium 135 mmol/L (136-145)
[2022-10-03 16:48] LABS: Blood Urea Nitrogen 11 mg/dl (7-17); Creatinine Clearance Estimated 39 mL/min (50-200); Estimated Glomerular Filt Rate 82 ml/min (>60); GFR (African American) 99 ML/MIN (>60)
[2022-10-03 16:49] LABS: Alanine Aminotransferase 19 U/L (12-78); Albumin Level 4.8 g/dl (3.5-5.0); Albumin/Globulin Ratio 1.9 (1.1-1.8); Alkaline Phosphatase 68 U/L (38-126); Anion Gap 13.6 mEq/L (5-15); Aspartate Amino Transferase 26 U/L (14-36); Bilirubin,Total 0.5 mg/dl (0.2-1.3); Calcium 9.4 mg/dl (8.4-10.2); Carbon Dioxide 24 mmol/L (22.0-30.0); Globulin 2.5 g/dL (1.3-3.2); Glucose 144 mg/dl (74-100); Total Protein,Serum 7.3 g/dl (6.3-8.2)
[2022-10-03 17:07] LABS: Appearance,Urine CLEAR (Clear); Bilirubin,Urine Negative (Negative); Blood, Urine Negative (Negative); Color,Urine STRAW (Yellow); Glucose,Urine (UA) Negative (Negative); Ketones,Urine Negative (Negative); Leukocyte Esterase,Urine 1+ (Negative); Microscopic, Urine URINE MICROSCOPIC (MICROSCOPIC); Nitrate,Urine Negative (Negative); Protein,Urine Negative (Negative); Specific Gravity, Urine <= 1.005 (1.005-1.030); Urobilinogen,Urine 0.2 EU/dl (0.2)
--- NOTE | 2022-10-03 17:20 | HMH.EDGENADL ---
Discharge Plan Disposition Patient Disposition: Home, Self-Care Condition: Fair Prescriptions Prescriptions: No Action Brilinta 90 mg tablet 90 mg PO BID Qty: 60 11RF metoprolol succinate 50 mg tablet extended release 24 hr 50 mg PO DAILY Qty: 90 3RF lisinopril 20 mg tablet 20 mg PO DAILY Qty: 90 3RF isosorbide mononitrate 30 mg tablet extended release 24 hr 30 mg PO DAILY Qty: 90 3RF atorvastatin 40 mg tablet 40 mg PO DAILY Qty: 90 3RF aspirin 81 mg tablet,chewable 81 mg PO DAILY Qty: 90 3RF venlafaxine 37.5 mg tablet 37.5 mg PO BID metformin 500 mg tablet 500 mg PO BID gabapentin 100 mg capsule 200 mg PO HS quetiapine [Seroquel] 50 mg tablet 50 mg PO BID Calcium 600 + D(3) 600 mg calcium- 200 unit capsule 600 cap PO DAILY diazepam 2 mg tablet 2 mg PO TID acetaminophen [Pain Relief ES (acetaminophen)] 500 mg tablet 500 - 1,000 mg PO Q6HP PRN (Reason: Pain) omeprazole 40 mg capsule,delayed release(DR/EC) 40 mg PO DAILY famotidine [Pepcid] 20 mg tablet 20 mg PO DAILY Referrals Follow up/Referrals: Hansel Ruff MD [Primary Care Provider] - See instructions Clinical Impressions Clinical Impression: Dizziness Instructions Patient Instructions: DI for Dizziness-Nonvertigo Discharge ED Provider: Luke Zimmer General Adult HPI General Chief complaint: Dizziness Stated complaint: Dizzy Time Seen by Provider: 10/03/22 16:30 Mode of Arrival: EMS Source of Information: Patient Limitations: No Limitations Description of Symptoms (Recalled from ER Triage Doc. by RN): Presents via EMS with continued dizziness for the past few years. Patient denies progression or changes of dizzines. Recent hx of cardiac cath with 3 stents placed last week. History of Present Illness HPI narrative: Patient is a 71-year-old female who presents with concern for dizziness. She says that she has had dizziness for years and that it is flaring up today . She states that she recently had a heart cath and had 3 stents placed last week but that the dizziness that she is having now was present before and after her stent placement. She denies any numbness or tingling into her extremities. Denies any chest pain or shortness of breath. Denies any abdominal pain. Denies any vomiting. Denies any diarrhea. She says that her symptoms are little bit worse when she gets up from sitting. Related Data Home Medications Medication Instructions Recorded Confirmed venlafaxine 37.5 mg tablet 37.5 mg PO BID mood 07/26/17 09/28/22 gabapentin 100 mg capsule 200 mg PO HS Pain 05/13/18 09/28/22 metformin 500 mg tablet 500 mg PO BID Diabetes 05/13/18 09/28/22 calcium carbonate 600 mg-vitamin 600 cap PO DAILY Supplement 12/13/18 09/28/22 D3 5 mcg (200 unit) capsule (Calcium 600 + D(3)) quetiapine 50 mg tablet (Seroquel) 50 mg PO BID mood 12/13/18 09/28/22 diazepam 2 mg tablet 2 mg PO TID Anxiety 12/01/19 09/28/22 famotidine 20 mg tablet (Pepcid) 20 mg PO DAILY Acid reflux 08/18/22 09/28/22 omeprazole 40 mg capsule,delayed 40 mg PO DAILY Acid reflux 08/18/22 09/28/22 release acetaminophen 500 mg tablet (Pain 500 - 1,000 mg PO Q6HP PRN Pain 09/24/22 09/28/22 Relief Extra Strength (acetaminophen)) Previous Rx's Medication Instructions Recorded aspirin 81 mg chewable tablet 81 mg PO DAILY Heart disease #90 09/28/22 tabs atorvastatin 40 mg tablet 40 mg PO DAILY Cholesterol #90 tabs 09/28/22 isosorbide mononitrate 30 mg 30 mg PO DAILY Chest pain #90 tabs 09/28/22 tablet,extended release 24 hr lisinopril 20 mg tablet 20 mg PO DAILY High blood pressure 09/28/22 #90 tabs metoprolol succinate 50 mg 50 mg PO DAILY High blood pressure 09/28/22 tablet,extended release 24 hr #90 tabs ticagrelor 90 mg tablet (Brilinta) 90 mg PO BID #60 tabs 09/28/22 Allergies Allergy/AdvReac Type Severity Reaction Status Date / Time codeine [CODEINE] Al
[2022-10-03 17:22] LABS: Transitional Epi Cells,Urine OCC #/lpf (0-3)
[2022-10-03 18:49] VITALS: BP 172/80; PULSE 73; RESP 16; TEMP 36.5; O2SAT 100
== END 2022-10-03 19:01 | disposition home or self-care (01) ==
PROVIDERS: Emergency Provider Student in an Organized Health Care Education/Training Program; PCP Internal Medicine
DX: R42 Dizziness and giddiness (principal)
CPT/HCPCS: 80053; 81001; 85025; 87086; 93005; 96360; 99284; 99285

== ENCOUNTER → 2022-10-07 10:01 | Outpatient (CLI) | payer MEDICARE, OTHER, SELFPAY ==
--- NOTE | 2022-10-07 10:05 | FL_ITS ---
FINAL REPORT CLINICAL HISTORY: C/o food/meds getting stuck in throat x mos, occasionally come back up. FINDINGS: UPPER GI EXAM HISTORY: Dysphagia. PROCEDURE: The patient ingested barium. Effervescent crystals were also administered. Spot and overhead films were obtained. FINDINGS: The esophagus is dilated with beaking of the distal esophagus. In addition, there is irregular mucosa seen of the distal esophagus at the gastroesophageal junction. Marked esophageal dysmotility was demonstrated during the exam. There is a small paraesophageal hiatal hernia. No esophageal reflux was demonstrated during the exam The rugal fold pattern of the stomach is normal. The duodenal bulb is normal. FLUOROSCOPY TIME: 2 minutes 56 seconds. 32 radiographs were obtained. IMPRESSION: Dilated esophagus with beaking of the distal esophagus consistent with achalasia. Marked esophageal dysmotility. Irregular mucosa of the distal esophagus with small paraesophageal hiatal hernia. Endoscopic correlation recommended. Films reviewed , interpreted and dictated by Dr. Yen Alatorre. Transcribed by Musa العلي PA-C. Reviewed, Interpreted and Dictated by Yen Alatorre MD Transcribed by ANJUM Fernando Authenticated and [facility]
== END ==
PROVIDERS: PCP Internal Medicine; Visit Provider Internal Medicine
DX: R94.4 Abnormal results of kidney function studies (principal)
CPT/HCPCS: 74246

== ENCOUNTER → 2022-10-19 09:18 | Outpatient (CLI) | payer MEDICARE, OTHER, SELFPAY ==
--- NOTE | 2022-10-19 09:38 | US_ITS ---
FINAL REPORT CLINICAL HISTORY: EPIGASTRIC PAIN FINDINGS: Sonographic images of the abdomen were obtained. The liver has an unremarkable appearance with normal echogenicity. The gallbladder has an unremarkable appearance without evidence of gallstones. There is no evidence of biliary ductal dilatation. The common hepatic duct measures 4 mm, which is within normal limits. The pancreas is obscured. The spleen size is normal. The right kidney measures 8.2 cm in length. The left kidney measures 9.6 cm in length. There is normal renal echogenicity. There is no evidence of hydronephrosis. There is moderate plaque in the abdominal aorta. Otherwise, the aorta has an unremarkable appearance. Limited images of the inferior vena cava are unremarkable. IMPRESSION: Moderate plaque in the abdominal aorta. Consider CTA if clinically indicated. Reviewed, Interpreted and Dictated by Juan Cabrera III, MD Transcribed by Mary Ray Authenticated and [facility]
--- NOTE | 2022-10-19 09:39 | FL_ITS ---
FINAL REPORT CLINICAL HISTORY: .1:41 fluoro time FINDINGS: MODIFIED BARIUM SWALLOW HISTORY: Dysphagia. FINDINGS: Fluoroscopy was provided for the speech pathologist to evaluate the swallowing mechanism. The patient was given several different consistencies of barium while the swallow was visualized fluoroscopically. The report of the speech pathologist should be consulted prior to making dietary decisions. IMPRESSION: Modified barium swallow under fluoroscopic guidance. Please see speech pathologist's report for further details and dietary recommendations. Fluoroscopy time was 1 minute, 41 seconds 9 cine runs were saved. Reviewed, Interpreted and Dictated by Juan Cabrera III, MD Transcribed by Noreen Dickerson PA-C Authenticated and [facility]
--- NOTE | 2022-10-19 14:00 | HMH.SLMBS2 ---
Speech & Language Evaluation Speech/Language Mod Barium Swallow Start: 10/19/22 13:35 Freq: once Status: Complete Protocol: Document 10/19/22 13:35 RONEY (Rec: 10/19/22 14:00 RONEY [id number]) General Information General Current Food Consistency Regular,Thin Liquids Dentition Edentulous Oxygen Status Room Air Facial Symmetry Symmetrical Ability to Follow Directions Fair Communication Ability No Impairment MBS Recommendations Diet Dietary Recommendations Regular,Thin Liquids Treatment/Strategies Strategy/Precaution Recommend Sitting Upright (90 deg),Small Bites and Sips,Alternate Liquids/Solids Referrals/Other Recommended Referrals GI Consult Mod Barium Swallow Impressions Summary and Impressions Oral Phase Impression Mild Impairment Oral Phase Summary Mild oropharyngeal impairment 2' lack of dentition. No significant oral residue noted . Adequate AP transit with textures. Mild premature spillage into the pharynx with solids 2' prolonged mastication. Pharyngeal Phase Impression No Impairment (WFL) Pharyngeal Phase Summary Pharyngeal phase is WFL. No aspiration or penetration was noted on the study. No significant pharyngeal reside was present. Adequate hypolaryngeal movement and epiglottic inversion. Adequate bolus flow through the UES. Speech/Language MBS Assessment/Goals/Plan Assessment Date of Evaluation: 10/19/22 Evaluation Type Initial Certification Assessment/Problems Epigastric pain, abdominal pain per MD order. Does Patient Qualify for Service No Qualify/Failure Comment Based on the results of the MBSS, no further skilled ST services are warranted at this time. Recommendations PHYSICIAN CERTIFICATION: The specified therapy services are required, authorized, and reviewed every 30 days. Diet Recommendations Normal Liquid Type Recommendations Normal/Thin SL Swallow Guidelines Reflux precautions Dysphagia Swallow Precautions/Strategies Sitting Upright (90 deg),Small Bites and Sips,Alternate Liquids/Solids Plan Pt/Guardian verbally ack understanding Yes of dx/prognosis/goals Pt/Guar
== END ==
PROVIDERS: PCP Internal Medicine; Visit Provider Internal Medicine
DX: R10.13 Epigastric pain (principal); R10.9 Unspecified abdominal pain
CPT/HCPCS: 70371; 76700; 92611

== ENCOUNTER → 2022-11-16 16:48 | Outpatient (CLI) | payer MEDICARE, OTHER, SELFPAY ==
[2022-11-16 17:42] LABS: Basophils % 0.5 % (0.1-2.0); Eosinophils # 0.1 K/mm3 (0.0-0.4); Eosinophils % 0.9 % (0.1-12.0); Hematocrit 30.7 % (37.0-47.0); Hemoglobin 10.2 g/dL (12.2-16.2); Lymphocytes # 1.2 K/mm3 (0.7-4.5); Lymphocytes % 16.1 % (10-50); Mean Corpuscular HGB Conc 33.3 g/dL (31.8-35.4); Mean Corpuscular Hemoglobin 32.3 pg (27.0-31.2); Mean Corpuscular Volume 97.1 fl (81-99); Mean Platelet Volume 7.9 fl (7.4-10.4); Monocytes # 0.5 K/mm3 (0.1-1.0); Monocytes % 6.9 % (1.7-9.3); Neutrophils # 5.8 K/mm3 (1.8-7.8); Neutrophils % 75.6 % (37.0-80.0); Platelet Count 259 K/mm3 (142-424); Red Blood Count 3.16 M/mm3 (4.20-5.40); Red Cell Distribution Width 15.8 % (11.5-17.5); White Blood Count 7.7 K/mm3 (4.8-10.8)
== END ==
PROVIDERS: PCP Internal Medicine; Visit Provider Internal Medicine
DX: D64.9 Anemia, unspecified (principal)
CPT/HCPCS: 85025

== ENCOUNTER 2022-12-02 10:25 | Day surgery (SDC) | payer MEDICARE, OTHER, SELFPAY ==
[2022-11-23 13:58] VITALS: BMI 21.7
[2022-12-02 10:36] VITALS: BP 155/53; PULSE 65; RESP 15; TEMP 36.4; O2SAT 100
[2022-12-02 10:49] LABS: POC Glucose,Bedside 100 (70-110)
--- NOTE | 2022-12-02 10:55 | SUR.PREOP ---
BS 100 in pre op
--- NOTE | 2022-12-02 11:13 | P.PN_ITS ---
[facility] Disclaimer: The information contained in this section may have been updated after the patient was seen, as this information can be updated by other users. Medical History Carotid artery stenosis Coronary artery disease History of left heart catheterization Surgical History History of permanent cardiac pacemaker placement S/P CABG x 1 Status post aortic valve replacement with bioprosthetic valve Family History Other Family history of cancer Family history of diabetes mellitus type II Family history of hypertension Family history of myocardial infarction Social History Smoking Status: Never smoker second hand exposure: Yes alcohol intake: never substance use type: denies use current occupational status: retired Travel in the last 8 weeks: None household members: none housing: apartment lives independently: Yes marital status: single education level: middle school service: No skilled nursing: No current occupational exposures/hazards: No caffeine: Yes do you feel safe at home: Yes victim of physical abuse: No victim of emotional abuse: No victim of sexual abuse: No would you like helpful sources: No [facility] Anesthesia Checklist Patient Identification Patient Identification: Verbal (Name & ) Structural Data Admitted From: Home Planned Operative Procedure/s: egd Consent for Planned Operative Procedure(s) Verified: Yes Additional verifications Anesthesia Reactions: No Airway Assessment C-Spine Mobility Assessed: Yes TMJ Mobility Assessed: Yes Dentition: Edentulous Neurological Assessment Level of Consciousness: Awake, Alert and Appropriate Anesthesia Plan Anesthesia Risk discussed: Yes Anesthesia Plan: Verified ASA Class: III Anesthesia Type: MAC
[2022-12-02 11:14] VITALS: O2SAT 99
--- NOTE | 2022-12-02 11:24 | P.PCN_ITS ---
Procedure: Date: 12/02/22 Patient Date of :: 1950 Procedure Performed:: EGD Indications:: The patient is a 71 year old who presents for EGD evaluation of dysphagia. She had a barium esophagram that showed a dilated esophagus with beaking of the distal esophagus. In addition there was noted to be an irregular appearance to mucosa at the GE junction. Marked esophageal dysmotility was reported. The odette ent had left heart catheterizations with cardiac stents in September and has use of dual antiplatelet therapies. The patient is unable to stop antiplatelet treatments for EGD today. Performing Provider:: Edgar Mackey MD Referring Provider:: Hansel Ruff Sedation:: See RN records Procedure:: The gastroscope was gently passed through the incisoral orifice into the oral cavity and under direct visualization the esophagus was intubated. The endoscope was passed down the esophagus, through the stomach, and into the duodenum. Color, texture, mucosa, and anatomy of the esophagus, stomach, and duodenum were carefully examined with the scope. Findings:: Oropharynx: normal Esophagus: Tortuosity of the distal esphaugs. There was a benign appearing narrowing at the distal esophagus just proximal to the GE junction. EG Junction: measured at 35 cm Cardia: normal Fundus: normal Body: normal Antrum: linear erythema Duodenal bulb: normal Duodenum (second and third portion): normal Impression: Bening appearing narrowing of the distal esophagus Tortuousity of the distal esophagus Esophageal dilatation not performed today due to patient unable to hold DAPT at this time Recommendations:: Await pathology results Will discuss return for EGD with possible empiric dilatation when the patient is able to hold DAPT and will also discuss botox injection treatment for what appears to be achalasia if this is able to be arranged here Complications:: none Estimated blood obtained (mL): 0
[2022-12-02 11:25] VITALS: BP 117/52; PULSE 65; RESP 16; TEMP 36.1; O2SAT 100
[2022-12-02 11:35] VITALS: BP 129/69; PULSE 63; RESP 17; O2SAT 100
[2022-12-02 11:45] VITALS: BP 114/81; PULSE 64; RESP 18; O2SAT 100
[2022-12-02 11:55] VITALS: BP 125/56; PULSE 67; RESP 17; O2SAT 99
== END 2022-12-02 11:55 | disposition home or self-care (01) ==
PROVIDERS: PCP Internal Medicine; Visit Provider Internal Medicine
PROC: 0DJ08ZZ Inspection of Upper Intestinal Tract, Via Natural or Artificial Opening Endoscopic (ICD-10-PCS; CPT 43235; principal; 2022-12-02 12:00)
DX: R13.10 Dysphagia, unspecified (principal); Z79.899 Other long term (current) drug therapy; E11.9 Type 2 diabetes mellitus without complications
CPT/HCPCS: 45378; 82962

== ENCOUNTER → 2022-12-09 11:45 | Outpatient (CLI) | payer MEDICARE, OTHER, SELFPAY ==
--- NOTE | 2022-12-09 11:52 | XR_ITS ---
FINAL REPORT TECHNIQUE: Chest PA & Lateral CLINICAL HISTORY: soa COMPARISON: None FINDINGS: 2 views of the chest were performed. The heart size is normal. The mediastinum is within normal limits. There is no acute cardiopulmonary process. There are no pleural effusions. There is no pneumothorax. The bony thorax appears intact. IMPRESSION: No acute cardiopulmonary process. Reviewed, Interpreted and Dictated by Ryan Lomeli MD Transcribed by Darling Hernandez Authenticated and [facility]
== END ==
PROVIDERS: PCP Internal Medicine; Visit Provider Physician Assistant
DX: R06.02 Shortness of breath (principal)
CPT/HCPCS: 71046

== ENCOUNTER → 2023-02-17 18:03 | Outpatient (CLI) | payer MEDICARE, OTHER, SELFPAY ==
[2023-02-17 19:26] LABS: Hemoglobin A1C 5.8 % (4.0-6.0)
[2023-02-17 19:27] LABS: Basophils % 0.4 % (0.1-2.0); Eosinophils # 0.1 K/mm3 (0.0-0.4); Eosinophils % 1.1 % (0.1-12.0); Lymphocytes # 1.2 K/mm3 (0.7-4.5); Lymphocytes % 24.6 % (10-50); Mean Corpuscular HGB Conc 32.1 g/dL (31.8-35.4); Mean Corpuscular Hemoglobin 31.6 pg (27.0-31.2); Mean Corpuscular Volume 98.4 fl (81-99); Mean Platelet Volume 8.9 fl (7.4-10.4); Monocytes # 0.4 K/mm3 (0.1-1.0); Monocytes % 8.5 % (1.7-9.3); Neutrophils # 3.3 K/mm3 (1.8-7.8); Neutrophils % 65.4 % (37.0-80.0); Platelet Count 236 K/mm3 (142-424); Red Blood Count 3.15 M/mm3 (4.20-5.40); Red Cell Distribution Width 16.2 % (11.5-17.5); Reticulocyte % (Auto) 1.3 % (0.9-3.2)
[2023-02-17 20:45] LABS: Alanine Aminotransferase 16 U/L (12-78); Albumin Level 4.8 g/dl (3.5-5.0); Albumin/Globulin Ratio 2.1 (1.1-1.8); Alkaline Phosphatase 87 U/L (38-126); Anion Gap 16.1 mEq/L (5-15); Aspartate Amino Transferase 21 U/L (14-36); Bilirubin,Total 0.4 mg/dl (0.2-1.3); Blood Urea Nitrogen 19 mg/dl (7-17); Calcium 9.6 mg/dl (8.4-10.2); Carbon Dioxide 26 mmol/L (22.0-30.0); Chloride 101 mmol/L (98-107); Chol/HDL Ratio 2.8 (1-3.5); Cholesterol 167 mg/dl (140-200); Estimated Glomerular Filt Rate 61 ml/min (>60); GFR (African American) 74 ML/MIN (>60); Globulin 2.3 g/dL (1.3-3.2); Glucose 68 mg/dl (74-100); HDL Cholesterol 60 mg/dl (40-60); Sodium 137 mmol/L (136-145); Total Protein,Serum 7.1 g/dl (6.3-8.2); Triglycerides 167 mg/dl (30-150); VLDL Cholesterol 33 mg/dL (0-40)
[2023-02-17 20:56] LABS: Direct LDL Cholesterol 70.86 mg/dL (100-129)
[2023-02-17 21:28] LABS: Potassium 6.1 mmoL/L (3.5-5.1)
[2023-02-17 21:33] LABS: Vitamin B12 563 pg/mL (239-931)
== END ==
PROVIDERS: PCP Internal Medicine; Visit Provider Internal Medicine
DX: E11.59 Type 2 diabetes mellitus with other circulatory complications (principal); I25.10 Atherosclerotic heart disease of native coronary artery without angina pectoris; I10 Essential (primary) hypertension; D64.9 Anemia, unspecified; E78.5 Hyperlipidemia, unspecified; E87.5 Hyperkalemia; K21.9 Gastro-esophageal reflux disease without esophagitis; Z79.84 Long term (current) use of oral hypoglycemic drugs
CPT/HCPCS: 80053; 80061; 82607; 83036; 85025; 85044

== ENCOUNTER → 2023-02-26 15:33 | Outpatient (CLI) | payer MEDICARE, OTHER, SELFPAY | PROVIDERS: PCP Internal Medicine; Visit Provider Internal Medicine | DX: E87.5 Hyperkalemia (principal) ==

== ENCOUNTER 2023-02-27 20:24 | Inpatient (IN) | payer MEDICARE, OTHER, SELFPAY ==
[2023-02-27 20:28] VITALS: BP 171/74; PULSE 73; RESP 18; TEMP 36.6; O2SAT 99; BMI 22.0
--- NOTE | 2023-02-27 20:37 | XR_ITS ---
PROCEDURE INFORMATION: Exam: XR Left Knee Exam date and time: 02/27/2023 8:48 PM Age: 72 years old Clinical indication: Injury or trauma; Fall; Additional info: L trauma TECHNIQUE: Imaging protocol: Radiologic exam of the left knee. Views: 1 or 2 views. COMPARISON: CR [id number] XR knee LT 4V 11/26/2017 11:26 AM FINDINGS: Bones/joints: Questionable linear lucency overlying the proximal fibula is not optimally evaluated due to overlapping structures. Cannot entirely exclude subtle fracture. Otherwise, no evidence of acute fracture or dislocation. Joint spaces appear preserved. Soft tissues: No significant soft tissue edema. No subcutaneous emphysema or radiopaque foreign bodies. Other findings: Study quality is limited due to patient positioning. IMPRESSION: 1. Questionable linear lucency overlying the proximal fibula not optimally evaluated due to overlapping structures. Cannot entirely exclude subtle fracture. Correlate with focal physical examination. 2. Otherwise, no evidence of acute fracture or dislocation.
--- NOTE | 2023-02-27 20:37 | XR_ITS ---
PROCEDURE INFORMATION: Exam: XR Left Femur Exam date and time: 02/27/2023 8:48 PM Age: 72 years old Clinical indication: Injury or trauma; Fall; Additional info: Deformity TECHNIQUE: Imaging protocol: Radiologic exam of the left femur. Views: 2 views. COMPARISON: CR XR FEMUR LT 2V 09/24/2022 10:27 PM FINDINGS: Bones/joints: There is an acute mildly comminuted intertrochanteric fracture of the left femur. There is varus angulation and mild impaction. No dislocation. No additional acute fractures are seen. Mild osteoarthritic degenerative changes involve the patellofemoral joint space with mild spurring of the patella.. Soft tissues: No significant soft tissue edema. No subcutaneous emphysema or radiopaque foreign bodies. Gastrointestinal tract: Visualized bowel gas pattern is within range of normal. IMPRESSION: Acute comminuted fracture involving the intertrochanteric region left femur.
--- NOTE | 2023-02-27 20:37 | XR_ITS ---
PROCEDURE INFORMATION: Exam: XR Left Elbow Exam date and time: 02/27/2023 8:48 PM Age: 72 years old Clinical indication: Injury or trauma; Fall TECHNIQUE: Imaging protocol: Radiologic exam of the left elbow. Views: 1 or 2 views. COMPARISON: CR XR HUMERUS LT 09/24/2022 10:27 PM FINDINGS: Bones/joints: There is no evidence of acute fracture or dislocation. Joint spaces appear preserved. Soft tissues: There is mild soft tissue prominence involving the posterior soft tissues of the elbow suggesting mild edema. No subcutaneous emphysema or radiopaque foreign bodies. There is mild elevation of the anterior fat pad suggesting joint effusion. IMPRESSION: 1. No definite acute posttraumatic osseous injury. 2. Elbow joint effusion. Cannot exclude radiographically occult radial head fracture. Correlate clinically and with focal physical examination.
--- NOTE | 2023-02-27 20:37 | CT_ITS ---
PROCEDURE INFORMATION: Exam: CT Cervical Spine Without Contrast Exam date and time: 02/27/2023 9:45 PM Age: 72 years old Clinical indication: Injury or trauma; Fall TECHNIQUE: Imaging protocol: Computed tomography of the cervical spine without contrast. Radiation optimization: All CT scans at this facility use at least one of these dose optimization techniques: automated exposure control; mA and/or kV adjustment per patient size (includes targeted exams where dose is matched to clinical indication); or iterative reconstruction. REPORTING DATA: Count of CT and Cardiac NM exams in prior 12 months: This patient has received 6 known CTs and 0 known cardiac nuclear medicine studies in the 12 months prior to the current study. COMPARISON: CT CERVICAL SPINE WO CON 08/18/2022 4:06 PM FINDINGS: Tubes, catheters and devices: A left subclavian pacemaker device is incompletely visualized. Bones/joints: The cervical spine demonstrates minor discogenic and spondylitic degenerative changes. There is minor intervertebral disc space narrowing at C4 through the C6 with trace marginal osteophytes. There is slight anterior spondylolisthesis C3 on C4. There is slight retrolisthesis C4 on C5 and C5 on C6. Alignment is otherwise intact from skull base to T1. The atlantooccipital articulations are preserved. The facet joints are appropriately aligned. The predental interval appears normal. Vertebral body heights are preserved. No compression fractures. Sternal suture wires are in place suggesting prior median sternotomy and postoperative changes are present involving the mediastinum. There is minor intervertebral disc space narrowing at the C4-C5, and C5-C6 level. No focal disc protrusion or significant central canal stenosis. Paranasal sinuses: The visualized sinuses are clear. Mastoid air cells: The visualized mastoid sinuses are normal. Prevertebral and retropharyngeal spaces: The prevertebral soft tissues are within range of normal. No focal hematomas. Lungs: Left apical pleuroparenchymal calcification indicates prior granulomatous disease. Right upper lobe granuloma is also present. Esophagus: Mild esophageal wall thickening could be on the basis of incomplete distension but cannot exclude mild esophagitis. Thyroid: The thyroid gland is normal. Lymph nodes: There is no evidence of pathologic adenopathy. Vasculature: The visualized portions of the ascending thoracic aorta is at the upper limits of normal measuring 3.9 cm. Soft tissues: See Prevertebral and retropharyngeal spaces finding. The intracranial vasculature demonstrates diffuse moderate atherosclerotic calcification. IMPRESSION: 1. No acute posttraumatic abnormality. 2. Mild nonspecific esophageal wall thickening involving the visualized portions of the esophagus which could reflect esophagitis the. Cannot entirely exclude neoplastic process in the appropriate clinical setting. Correlate clinically. 3. Visualized portions of the ascending thoracic aorta at the upper limits of normal.
--- NOTE | 2023-02-27 20:37 | ECG_ITS ---
APPROVED REPORT Exam: Resting ECG HR:73 bpm ECG Measurements Heart Rate [address] 155 P 80 QRSd 170 QRS 259 QT 448 T 84 QTc 473 Conclusion ELECTRONIC VENTRICULAR PACEMAKER ABNORMAL RHYTHM ECG UNCONFIRMED REPORT Electronically signed by : Davin White MD 02/28/2023 08:37:28
--- NOTE | 2023-02-27 20:37 | XR_ITS ---
PROCEDURE INFORMATION: Exam: XR Chest Exam date and time: 02/27/2023 8:48 PM Age: 72 years old Clinical indication: Injury or trauma; Fall TECHNIQUE: Imaging protocol: Radiologic exam of the chest. Views: 1 view. COMPARISON: CR XR CHEST 2V 12/09/2022 12:01 PM FINDINGS: Tubes, catheters and devices: A left subclavian dual lead pacemaker device is present, and its leads are in appropriate position. Lungs: The lungs appear clear. No focal areas of consolidation. Pulmonary vasculature is within range of normal. Sternal suture wires are in place suggesting prior median sternotomy and postoperative changes are present involving the mediastinum. Pleural spaces: No pleural effusions. Negative for pneumothorax. Heart/Mediastinum: The heart is borderline enlarged. Aortic valve replacement is present, as before. Post CABG changes are present. Bones/joints: There is no evidence of acute fracture. IMPRESSION: Negative for an acute cardiopulmonary abnormality.
--- NOTE | 2023-02-27 20:37 | CT_ITS ---
PROCEDURE INFORMATION: Exam: CT Head Without Contrast Exam date and time: 02/27/2023 9:42 PM Age: 72 years old Clinical indication: Injury or trauma; Fall TECHNIQUE: Imaging protocol: Computed tomography of the head without contrast. Radiation optimization: All CT scans at this facility use at least one of these dose optimization techniques: automated exposure control; mA and/or kV adjustment per patient size (includes targeted exams where dose is matched to clinical indication); or iterative reconstruction. REPORTING DATA: Count of CT and Cardiac NM exams in prior 12 months: This patient has received 6 known CTs and 0 known cardiac nuclear medicine studies in the 12 months prior to the current study. COMPARISON: CT HEAD/BRAIN WO CON 09/24/2022 10:19 PM FINDINGS: Brain: Age appropriate atrophy and small vessel ischemic change. There are multiple small hypodensities in the basal ganglia consistent with remote lacunar infarctions. No evidence of intracranial hemorrhage, mass effect, midline shift or extra-axial fluid collections. Midline structures are normal. Montero-white matter differentiation is normal. Cerebral ventricles: No ventriculomegaly. Paranasal sinuses: Visualized sinuses are unremarkable. No fluid levels. Mastoid air cells: Visualized mastoid air cells are well aerated. Orbital cavities: The patient has had bilateral lens replacement surgery. Bones/joints: Unremarkable. No acute fracture. Soft tissues: Unremarkable. Vasculature: Carotid and vertebral artery atherosclerotic calcification. IMPRESSION: No acute intracranial injury.
--- NOTE | 2023-02-27 20:37 | XR_ITS ---
PROCEDURE INFORMATION: Exam: XR Pelvis Exam date and time: 02/27/2023 8:48 PM Age: 72 years old Clinical indication: Injury or trauma; Fall; Additional info: Fall, lle trauma TECHNIQUE: Imaging protocol: Radiologic exam of the pelvis. Views: 1 or 2 view. COMPARISON: CR XR HIP LT 2-3V W/PELVIS 09/24/2022 10:27 PM FINDINGS: Bones/joints: There is an acute mildly comminuted intertrochanteric fracture of the left femur. There is varus angulation and mild impaction. No dislocation. No additional acute fractures are seen. The visualized lower lumbar spine demonstrates mild degenerative changes. There are mild degenerative changes of the hip joints. Sacroiliac and symphyseal pubic joints are preserved. Soft tissues: Postoperative alterations are re-identified in the left inguinal region and overlying the right lower quadrant. No subcutaneous emphysema or radiopaque foreign bodies. Visualized bowel gas pattern is within range of normal. IMPRESSION: Acute comminuted fracture involving the intertrochanteric region left femur.
--- NOTE | 2023-02-27 20:41 | HMH.EDGENADL ---
Discharge Plan Disposition Patient Disposition: Admitted Condition: Serious Chief Complaint: Fall Clinical Impressions Clinical Impression: Fall, Femur fracture, left, Esophageal thickening Discharge ED Provider: Kamlesh Wei General Adult HPI General Chief complaint: Fall Stated complaint: fall Time Seen by Provider: 02/27/23 20:31 History of Present Illness HPI narrative: Patient is a 72-year-old female with past medical history of hypertensive heart disease status post CABG x1 on dual antiplatelet therapy, osteoarthritis, who presents to the emergency department for evaluation of traumatic injury sustained in a fall. Patient was reaching down to product picker a cat on her porch when she fell onto her left side. Patient normally gets around with a cane however states she does not need it when walking around the house. Patient hit her head, no LOC. Patient does not take anticoagulation. She is complaining of severe left lower extremity pain. C-spine precautions initiated prior to arrival. Patient is complaining of left elbow pain upon arrival as well. No other acute complaints at this time. Related Data Home Medications Medication Instructions Recorded Confirmed venlafaxine 37.5 mg tablet 37.5 mg PO BID mood 07/26/17 02/27/23 gabapentin 100 mg capsule 200 mg PO HS Pain 05/13/18 02/27/23 metformin 500 mg tablet 500 mg PO BID Diabetes 05/13/18 02/27/23 calcium carbonate 600 mg-vitamin 600 cap PO DAILY Supplement 12/13/18 02/27/23 D3 5 mcg (200 unit) capsule (Calcium 600 + D(3)) quetiapine 50 mg tablet (Seroquel) 50 mg PO BID mood 12/13/18 02/27/23 diazepam 2 mg tablet 2 mg PO TID Anxiety 12/01/19 02/27/23 acetaminophen 500 mg tablet (Pain 500 - 1,000 mg PO Q6HP PRN Pain 09/24/22 02/27/23 Relief Extra Strength (acetaminophen)) clopidogrel 75 mg tablet (Plavix) 75 mg PO DAILY . 02/27/23 02/27/23 famotidine 20 mg tablet See Rx Instructions .Route 02/27/23 02/27/23 .COMPLEX . Previous Rx's Medication Instructions Recorded aspirin 81 mg chewable tablet 81 mg PO DAILY Heart disease #90 09/28/22 tabs atorvastatin 40 mg tablet 40 mg PO DAILY Cholesterol #90 tabs 09/28/22 isosorbide mononitrate 30 mg 30 mg PO DAILY Chest pain #90 tabs 09/28/22 tablet,extended release 24 hr lisinopril 20 mg tablet 20 mg PO DAILY High blood pressure 09/28/22 #90 tabs metoprolol succinate 50 mg 50 mg PO DAILY High blood pressure 09/28/22 tablet,extended release 24 hr #90 tabs omeprazole 40 mg capsule,delayed 40 mg PO DAILY Acid reflux #90 caps 11/12/22 release Allergies Allergy/AdvReac Type Severity Reaction Status Date / Time codeine [CODEINE] Allergy Unknown WEAK Verified 01/28/23 13:55 hydrochlorothiazide Allergy Unknown I-RASH Verified 01/28/23 13:55 [HYDROCHLOROTHIAZIDE] hydrocodone [HYDROCODONE] Allergy Unknown I-RASH Verified 01/28/23 13:55 metoclopramide Allergy Unknown SLURRED Verified 01/28/23 13:55 [METOCLOPRAMIDE] SPEECH, WEAK nifedipine [NIFEDIPINE] Allergy Unknown I-HIVES Verified 01/28/23 13:55 prazosin [PRAZOSIN] Allergy Unknown ITCHING/WEA Verified 01/28/23 13:55 K triamterene [TRIAMTERENE] Allergy Unknown I-RASH Verified 01/28/23 13:55 PFS PFS Disclaimer: The information contained in this section may have been updated after the patient was seen, as this information can be updated by other users. Medical History Carotid artery stenosis Coronary artery disease History of left heart catheterization 4 stents Surgical History History of permanent cardiac pacemaker placement 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 Family History Other Family history of cancer Family hist
[2023-02-27 20:47] LABS: Basophils % 0.7 % (0.1-2.0); Eosinophils # 0.1 K/mm3 (0.0-0.4); Eosinophils % 1.1 % (0.1-12.0); Hemoglobin 9.5 g/dL (12.2-16.2); Lymphocytes # 1.8 K/mm3 (0.7-4.5); Lymphocytes % 33.5 % (10-50); Mean Corpuscular HGB Conc 32.8 g/dL (31.8-35.4); Mean Corpuscular Hemoglobin 32.7 pg (27.0-31.2); Mean Corpuscular Volume 99.7 fl (81-99); Mean Platelet Volume 8.1 fl (7.4-10.4); Monocytes # 0.5 K/mm3 (0.1-1.0); Monocytes % 8.8 % (1.7-9.3); Neutrophils # 3.1 K/mm3 (1.8-7.8); Platelet Count 241 K/mm3 (142-424); Red Blood Count 2.91 M/mm3 (4.20-5.40); Red Cell Distribution Width 16.4 % (11.5-17.5); White Blood Count 5.5 K/mm3 (4.8-10.8)
[2023-02-27 20:49] LABS: Chloride 107 mmol/L (98-107); Potassium 4.6 mmoL/L (3.5-5.1); Sodium 139 mmol/L (136-145)
--- NOTE | 2023-02-27 20:49 | PC.NURSE ---
Patient clothing removed and placed in gown.
[2023-02-27 20:51] LABS: Alanine Aminotransferase 26 U/L (12-78); Alkaline Phosphatase 67 U/L (38-126); Aspartate Amino Transferase 31 U/L (14-36); Bilirubin,Total 0.4 mg/dl (0.2-1.3); Blood Urea Nitrogen 20 mg/dl (7-17); Creatinine Clearance Estimated 40 mL/min (50-200); Estimated Glomerular Filt Rate 70 ml/min (>60); GFR (African American) 85 ML/MIN (>60)
[2023-02-27 20:52] LABS: Albumin Level 4.2 g/dl (3.5-5.0); Albumin/Globulin Ratio 1.8 (1.1-1.8); Anion Gap 15.6 mEq/L (5-15); Calcium 9.7 mg/dl (8.4-10.2); Carbon Dioxide 21 mmol/L (22.0-30.0); Globulin 2.3 g/dL (1.3-3.2); Glucose 142 mg/dl (74-100); Total Protein,Serum 6.5 g/dl (6.3-8.2)
--- NOTE | 2023-02-27 20:52 | PC.NURSE ---
boiler service technician in room doing XRay at this time.
--- NOTE | 2023-02-27 21:28 | PC.NURSE ---
Pt gone to RAD via stretcher
--- NOTE | 2023-02-27 21:38 | CT_ITS ---
PROCEDURE INFORMATION: Exam: CT Left Lower Extremity Without Contrast, Hip Exam date and time: 02/27/2023 9:47 PM Age: 72 years old Clinical indication: Injury or trauma; Fall; Additional info: Hip fracture TECHNIQUE: Imaging protocol: CT of the left lower extremity without contrast was performed. Exam focused on the hip. Radiation optimization: All CT scans at this facility use at least one of these dose optimization techniques: automated exposure control; mA and/or kV adjustment per patient size (includes targeted exams where dose is matched to clinical indication); or iterative reconstruction. REPORTING DATA: Count of CT and Cardiac NM exams in prior 12 months: This patient has received 6 known CTs and 0 known cardiac nuclear medicine studies in the 12 months prior to the current study. COMPARISON: CR XR HIP LT 2-3V W/PELVIS 09/24/2022 10:27 PM FINDINGS: Bones/joints: There is an acute mildly comminuted fracture involving the left intertrochanteric femur. There is mild impaction. No dislocation. There is no evidence of additional acute fracture. There is a small joint effusion. Soft tissues: Postsurgical changes are present in the left inguinal canal. There is mild associated perifractural edema. There is mild fullness to the contour of the adductor musculature suggesting edema/hematoma. IMPRESSION: Acute mildly comminuted fracture involving the left intertrochanteric femur.
--- NOTE | 2023-02-27 21:50 | PC.NURSE ---
Pt returned from Rad
[2023-02-27 22:00] VITALS: BP 133/54; PULSE 71; O2SAT 98
[2023-02-27 22:00] LABS: Microscopic, Urine URINE MICROSCOPIC (MICROSCOPIC)
[2023-02-27 22:02] LABS: Appearance,Urine CLEAR (Clear); Bilirubin,Urine Negative (Negative); Blood, Urine Negative (Negative); Color,Urine YELLOW (Yellow); Glucose,Urine (UA) Negative (Negative); Ketones,Urine Negative (Negative); Leukocyte Esterase,Urine Negative (Negative); Nitrate,Urine Negative (Negative); PH,Urine 5.5 (5.0-8.5); Protein,Urine Negative (Negative); Specific Gravity, Urine >= 1.030 (1.005-1.030)
[2023-02-27 22:26] LABS: Bacteria,Urine Trace /lpf; Calcium Oxalate Crystals,Urine 1+ /lpf; Hyaline Casts,Urine Occasional #/lpf (0); WBC,Urine Occasional #/hpf (0-3)
[2023-02-27 22:30] VITALS: BP 127/53; PULSE 69; O2SAT 95
--- NOTE | 2023-02-27 22:39 | PC.NURSE ---
OBSERVATION ADMISSION TO ROOM 206 WITH DX OF RIGHT HIP FX TO SERVICE OF HOSPITALIST.
--- NOTE | 2023-02-27 23:19 | PC.NURSE ---
called report to sara BAÑUELOS
[2023-02-27 23:29] VITALS: BP 116/59; PULSE 67; RESP 15; TEMP 36.7; O2SAT 97
--- NOTE | 2023-02-27 23:36 | PC.NURSE ---
PT arrived to the floor via stretcher @ 1321
[2023-02-28] VITALS (30 sets, daily range): BP systolic 78–144; BP diastolic 34–77; PULSE 67–116; RESP 10–20; TEMP 36.2–43; O2SAT 91–99; BMI 22.8
--- NOTE | 2023-02-28 00:05 | EXP.HP ---
History of Present Illness *Admission Date: 02/28/23 *Reason for visit:: left femur fracture *History of present illness: 72 year old female present to the ED after falling tonight. PMHX of CAD, CABG x 1, on plavix, DM, gerd, htn, and osteoarthritis. 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 The ED completed a traumatic work-up that inculded noncontrasted CT scan of the head, CT of the cervical spine, plain films of the left lower extremity, chest, left elbow. The workup resulted in fracture of the left intertrochanteric femur, possible fracture of the left proximal fibula, left joint effusion of the elbow and possible radial head fracture. The ED physician consulted Dr. Baker with orthopedics who stated to make the pt NPO at midnight for surgery in the morning. The ED physician consulted the hospitalist team for further medical management. The patient arrives to the medical floor c/o left hip pain. Denies lower leg pain or left elbow pain. She denies nausea or vomiting. She reports last taking her plavix at 7 a.m on 02/27/23. She is hemodynamically stable. [facility] Disclaimer: The information contained in this section may have been updated after the patient was seen, as this information can be updated by other users. Medical History Carotid artery stenosis Coronary artery disease History of left heart catheterization 4 stents Surgical History History of permanent cardiac pacemaker placement 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 Family History Other Family history of cancer Family history of diabetes mellitus type II Family history of hypertension Family history of myocardial infarction Social History Smoking Status: Never smoker second hand exposure: Yes alcohol intake: never substance use type: denies use current occupational status: retired Travel in the last 8 weeks: None household members: none housing: apartment lives independently: Yes marital status: single education level: middle school service: No shelter: No current occupational exposures/hazards: No caffeine: Yes do you feel safe at home: Yes victim of physical abuse: No victim of emotional abuse: No victim of sexual abuse: No would you like helpful sources: No Review of Systems Review of Systems Review of systems:: pertinent systems reviewed and negative unless documented below *Cardiovascular Cardiovascular: Reports system reviewed and no additional complaints, except as documented *Respiratory Respiratory: Reports system reviewed and no additional complaints, except as documented *Gastrointestinal Gastrointestinal: Reports system reviewed and no additional complaints, except as documented *Genitourinary Genitourinary: Reports system reviewed and no additional complaints, except as documented *Musculoskeletal Musculoskeletal: Reports deformity (left hip ) *Neurologic Neurologic: Reports system reviewed and no additional complaints, except as documented Meds Home Medications and Allergies Home Medications Medication Instructions Recorded Confirmed Type venlafaxine 37.5 mg tablet 37.5 mg PO BID mood 07/26/17 02/27/23 History gabapentin 100 mg capsule 200 mg PO HS Pain 05/13/18 02/27/23 History metformin 500 mg tablet 500 mg PO BID Diabetes 05/13/18 02/27/23 History calcium carbonate 600 mg-vitamin 600 cap PO DAILY Supplement 12/13/18 02/27/23 History D3 5 mcg (200 unit) capsule (Calcium 600 + D(3)) quetiapine 50 mg tablet (Seroquel) 50 mg PO BID mood 12/13/18 02/27/23 History diazepam 2 mg tablet 2 mg PO TID Anxiety 11/30
[2023-02-28 06:00] LABS: POC Glucose,Bedside 130 (70-110)
[2023-02-28 07:36] LABS: Basophils % 0.2 % (0.1-2.0); Eosinophils % 0.4 % (0.1-12.0); Hematocrit 28.2 % (37.0-47.0); Hemoglobin 9.1 g/dL (12.2-16.2); Lymphocytes # 1.1 K/mm3 (0.7-4.5); Lymphocytes % 14.3 % (10-50); Mean Corpuscular HGB Conc 32.4 g/dL (31.8-35.4); Mean Corpuscular Hemoglobin 31.9 pg (27.0-31.2); Mean Corpuscular Volume 98.5 fl (81-99); Mean Platelet Volume 8.3 fl (7.4-10.4); Monocytes # 0.6 K/mm3 (0.1-1.0); Monocytes % 8.1 % (1.7-9.3); Neutrophils % 76.9 % (37.0-80.0); Platelet Count 237 K/mm3 (142-424); Red Blood Count 2.86 M/mm3 (4.20-5.40); Red Cell Distribution Width 16.3 % (11.5-17.5); White Blood Count 7.8 K/mm3 (4.8-10.8)
[2023-02-28 07:39] LABS: Chloride 105 mmol/L (98-107)
[2023-02-28 07:40] LABS: Potassium 4.7 mmoL/L (3.5-5.1); Sodium 139 mmol/L (136-145)
[2023-02-28 07:43] LABS: Anion Gap 15.7 mEq/L (5-15); Blood Urea Nitrogen 21 mg/dl (7-17); Calcium 9.4 mg/dl (8.4-10.2); Carbon Dioxide 23 mmol/L (22.0-30.0); Creatinine Clearance Estimated 41 mL/min (50-200); Estimated Glomerular Filt Rate 70 ml/min (>60); GFR (African American) 85 ML/MIN (>60); Glucose 138 mg/dl (74-100)
--- NOTE | 2023-02-28 08:33 | PC.NURSE ---
pts contact kevon called for update on pt, kevon stated she doesnt get off work till 3pm and to notify her after that time if pt goes to surgery. friend kevon stated pt has no family and lives home alone on the 2nd floor.
--- NOTE | 2023-02-28 11:16 | EXP.ORTH.CON ---
History of Present Illness *Admission Date: 02/28/23 *History of present illness: 72 year old female present to the ED after falling tonight. PMHX of CAD, CABG x 1, on plavix, DM, gerd, htn, and osteoarthritis. 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 The ED completed a traumatic work-up that inculded noncontrasted CT scan of the head, CT of the cervical spine, plain films of the left lower extremity, chest, left elbow. The workup resulted in fracture of the left intertrochanteric femur, possible fracture of the left proximal fibula, left joint effusion of the elbow and possible radial head fracture. The ED physician consulted Dr. Baker with orthopedics who stated to make the pt NPO at midnight for surgery in the morning. The ED physician consulted the hospitalist team for further medical management. The patient arrives to the medical floor c/o left hip pain. Denies lower leg pain or left elbow pain. She denies nausea or vomiting. She reports last taking her plavix at 7 a.m on 02/27/23. She is hemodynamically stable. [facility] Disclaimer: The information contained in this section may have been updated after the patient was seen, as this information can be updated by other users. Medical History Carotid artery stenosis Coronary artery disease History of left heart catheterization 4 stents Surgical History History of permanent cardiac pacemaker placement 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 Family History Other Family history of cancer Family history of diabetes mellitus type II Family history of hypertension Family history of myocardial infarction Social History Smoking Status: Never smoker second hand exposure: Yes alcohol intake: never substance use type: denies use current occupational status: retired Travel in the last 8 weeks: None household members: none housing: apartment lives independently: Yes marital status: single education level: middle school service: No intermediate: No current occupational exposures/hazards: No caffeine: Yes do you feel safe at home: Yes victim of physical abuse: No victim of emotional abuse: No victim of sexual abuse: No would you like helpful sources: No Review of Systems *Neurologic Neurologic: Reports system reviewed and no additional complaints, except as documented Meds Home Medications and Allergies Home Medications Medication Instructions Recorded Confirmed Type venlafaxine 37.5 mg tablet 37.5 mg PO BID mood 07/26/17 02/27/23 History gabapentin 100 mg capsule 200 mg PO HS neuropathy 05/13/18 02/27/23 History metformin 500 mg tablet 500 mg PO BID Diabetes 05/13/18 02/27/23 History calcium carbonate 600 mg-vitamin 600 cap PO DAILY Supplement 12/13/18 02/27/23 History D3 5 mcg (200 unit) capsule (Calcium 600 + D(3)) quetiapine 50 mg tablet (Seroquel) 50 mg PO HS mood 12/13/18 02/28/23 History diazepam 2 mg tablet 2 mg PO TID Anxiety 12/01/19 02/27/23 History acetaminophen 500 mg tablet (Pain 500 - 1,000 mg PO Q6HP PRN Pain 09/24/22 02/27/23 History Relief Extra Strength (acetaminophen)) aspirin 81 mg chewable tablet 81 mg PO DAILY Heart disease #90 09/28/22 02/27/23 Rx tabs atorvastatin 40 mg tablet 40 mg PO DAILY Cholesterol #90 tabs 09/28/22 02/27/23 Rx isosorbide mononitrate 30 mg 30 mg PO DAILY Chest pain #90 tabs 09/28/22 02/27/23 Rx tablet,extended release 24 hr lisinopril 20 mg tablet 20 mg PO DAILY High blood pressure 09/28/22 02/27/23 Rx #90 tabs omeprazole 40 mg capsule,delayed 40 mg PO DAILY Acid reflux #90 caps 11/12/22 0
--- NOTE | 2023-02-28 12:03 | SUR.OPER ---
2gm of Ancef given to patient for preop abx per FARIDA Stephens. Please see anesthesia record. Given at room time
--- NOTE | 2023-02-28 13:02 | EXP.OP.NOTE ---
Date of procedure: 02/28/23 Pre-op Diagnosis:: left intertrochanteric femur fracture Post-op Diagnosis:: same Procedure performed:: 79295: Cephalomedullary nail fixation left intertrochanteric femur fracture Surgeon:: Adolfo Rai JR, MD STRAPPING MACHINE TENDER:: Hemal Patel Anesthesia: MAC and spinal Estimated blood loss (mL): 200 Clinical Note:: 72-year-old female sustained left intertrochanteric femur fracture as a result of a ground-level fall. I had a discussion with her regarding further management. After discussion of risk, benefits, alternatives, she wished to proceed with cephalomedullary nail fixation left intertrochanteric femur fracture. We discussed the risk and benefits of surgery. Risks included but were not limited to pain, bleeding, infection, damage to adjacent structures, need for further surgery, wound healing complications, loss of limb, . Patient expressed verbal consent and written consent was obtained for the above procedure. Operative findings:: Safe intraosseous hardware placement. Tip apex distance less than 20 mm Operative note:: Patient was identified in preoperative holding. Operative site was marked in indelible ink. History, physical, consent were reviewed and updated. Patient was surrendered to the anesthesia team, taken to the operative suite. The patient was secured onto the fracture table with a belt and tape across the arms and upper chest area. Anesthesia was induced. A perineal post had been placed. The operative extremity was secured down and longitudinal traction applied through the post. The contralateral extremity was secured with pillow and mary wrap to arm. C-arm fluoroscopy was then brought in to check fracture alignment, and it was found to be acceptable on AP and lateral views. The operative extremity was prepped and draped in the usual sterile fashion. The operative team donned sterile gowns and gloves and a timeout was called. All in attendance agreed regarding the patient's identity, procedure, operative site. Weight-based dose of antibiotics was given prior to incision. A stab wound incision was made proximal to the tip of the greater trochanter and a Steinmann pin placed on the tip of the greater trochanter, localizing it on AP and lateral views to be in the center. This was placed down into the femur to the level of the lesser trochanter. The knife was used to enlarge the opening proximally and a guide placed over the pin down to the tip of the greater trochanter. The drill was used through the guide to open the greater trochanter. A ball-tipped guidewire was placed in the canal was reamed to appropriate diameter. The cephalomedullary nail was advanced over the guidewire to appropriate position. The placement was checked on AP and lateral views. The triple sleeve cannula was then placed through the guide connected onto the insertion handle. This was placed against the skin and then an incision made through the skin and fascia down onto bone. The cannula was then placed down until it was flush on the bone. The guide pin was drilled up into the center of the femoral head on AP and lateral views. The inner sleeve was then removed, and the length of the blade was measured. Step reamer was advanced to appropriate depth over the wire. A 10.5 mm lag screw of appropriate length was placed with tip apex distance less than 20 mm. Attention was then turned proximally, and the flexible screwdriver was used to tighten down the proximal screw to the lag screw. The distal bolt was then placed through the targeting device and a small incision made through the skin and fascia allowing it to be placed flush against bone. Drill was used to drill through both cortices. An interlocking bolt of appropriate length was placed after drilling. Orthogonal fluoroscopic views demonstrated appropriate fracture alignment, safe intraosseous hardware placement with appropriate tip apex distance and no apparent fracture at the tip of the n
--- NOTE | 2023-02-28 13:12 | P.PNANES_ITS ---
[facility] Disclaimer: The information contained in this section may have been updated after the patient was seen, as this information can be updated by other users. Medical History Carotid artery stenosis Coronary artery disease History of left heart catheterization 4 stents Surgical History History of permanent cardiac pacemaker placement 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 Family History Other Family history of cancer Family history of diabetes mellitus type II Family history of hypertension Family history of myocardial infarction Social History Smoking Status: Never smoker second hand exposure: Yes alcohol intake: never substance use type: denies use current occupational status: retired Travel in the last 8 weeks: None household members: none housing: apartment lives independently: Yes marital status: single education level: middle school service: No residential: No current occupational exposures/hazards: No caffeine: Yes do you feel safe at home: Yes victim of physical abuse: No victim of emotional abuse: No victim of sexual abuse: No would you like helpful sources: No [facility] Anesthesia Checklist Patient Identification Patient Identification: Verbal (Name & ) Structural Data Admitted From: Inpatient Planned Operative Procedure/s: orif l hip Consent for Planned Operative Procedure(s) Verified: Yes NPO Status Verified Time NPO: 00:00 Additional verifications Anesthesia Reactions: No Airway Assessment Mallampati Score:: Class I C-Spine Mobility Assessed: Yes TMJ Mobility Assessed: Yes Dentition: Edentulous Neurological Assessment Level of Consciousness: Awake, Alert and Appropriate Anesthesia Plan Anesthesia Risk discussed: Yes Anesthesia Plan: Verified ASA Class: III Anesthesia Type: MAC w/Spinal
--- NOTE | 2023-02-28 13:13 | EXP.ANES.I ---
[facility] Anesthesia Record Part I Anesthesia Record I Intake, IV Amount: 1,500 Hydration: Adequate Estimated blood loss (mL): 150 Urine output (mL): 250 Blood Pressure: 90/45 SaO2: 99 Pulse Rate: 85 Airway Patency: Patent Respiratory Rate: 12 Temperature: 97.2 F Patient is:: Awake and Stable Stable to PACU at:: 13:10
--- NOTE | 2023-02-28 13:15 | FL_ITS ---
PROCEDURE INFORMATION: Exam: XR Left Hip Exam date and time: 02/28/2023 1:15 PM Age: 72 years old Clinical indication: Screening exam; Additional info: Surgical case femur- fluoro time 2:30/ [id number] TECHNIQUE: Imaging protocol: Radiologic exam of the left hip. Views: 2 or 3 views hip with pelvis when performed. COMPARISON: No relevant prior studies available. FINDINGS: Bones/joints: Twelve intraoperative fluoroscopic images are submitted demonstrating intramedullary nail and screw fixation of a left intertrochanteric femur fracture. No immediate complications. Soft tissues: Unremarkable. IMPRESSION: Twelve intraoperative fluoroscopic images are submitted demonstrating intramedullary nail and screw fixation of a left intertrochanteric femur fracture. No immediate complications.
--- NOTE | 2023-02-28 13:23 | XR_ITS ---
PROCEDURE INFORMATION: Exam: XR Left Hip Exam date and time: 02/28/2023 1:45 PM Age: 72 years old Clinical indication: Screening exam; Post op left femur; Additional info: Postop left femur gamma nail TECHNIQUE: Imaging protocol: Radiologic exam of the left hip. Views: 2 or 3 views hip with pelvis when performed. COMPARISON: CT HIP LT WO CON 02/27/2023 9:47 PM FINDINGS: Tubes, catheters and devices: Acute comminuted pertrochanteric fracture in the left proximal femur status post fixation with intramedullary femoral venessa and cannulated cross-locking trochanteric nail. Hardware appears intact and in satisfactory position. Acute avulsion fracture of the lesser trochanter is unchanged. Bones/joints: No other evidence of acute fracture. Pubic symphysis and bilateral sacroiliac joints are congruent. Soft tissues: Subcutaneous emphysema overlying the left hip, within the throat with postoperative status. Skin wanda noted. IMPRESSION: 1. Status post left femur fixation with no evidence of immediate complication. 2. Acute avulsion fracture of the lesser trochanter is unchanged.
[2023-02-28 17:37] LABS: POC Glucose,Bedside 169 (70-110)
--- NOTE | 2023-02-28 20:21 | ECG_ITS ---
APPROVED REPORT Exam: Resting ECG HR:120 bpm ECG Measurements Heart Rate 120 AXES OH 237 P 1 QRSd 157 QRS -60 QT 376 T 108 QTc 447 Conclusion ELECTRONIC VENTRICULAR PACEMAKER ABNORMAL RHYTHM ECG UNCONFIRMED REPORT Electronically signed by : Davin White MD 03/02/2023 19:46:56
[2023-02-28 21:49] LABS: Troponin I 0.06 ng/ml (0.00-0.034)
--- NOTE | 2023-02-28 23:13 | EXP.PN ---
Subjective *Date: 02/28/23 *Time: 09:00 Interval history: No acute events overnight. She is anxious about having surgery. No numbness/tingling of the left leg. Exam Data for Last 24 hours Vital signs and Labs for Last 24 Hours: Temp Pulse Resp BP Pulse Ox O2 Del Method O2 Flow Rate 98.2 F 105 H 18 103/56 L 97 Room Air 10 02/28/23 17:05 02/28/23 18:50 02/28/23 18:50 02/28/23 18:50 02/28/23 18:50 02/28/23 18:50 02/28/23 13:10 Laboratory Results - last 24 hr 02/28/23 05:44: POC Glucose 130 H 02/28/23 06:57: WBC 7.8 D, RBC 2.86 L, Hgb 9.1 L, Hct 28.2 L, MCV 98.5, MCH 31.9 H, MCHC 32.4, RDW 16.3, Plt Count 237, MPV 8.3, Neut % (Auto) 76.9, Lymph % (Auto) 14.3, Toole % (Auto) 8.1, Eos % (Auto) 0.4, Baso % (Auto) 0.2, Neut # (Auto) 6.0, Lymph # (Auto) 1.1, Toole # (Auto) 0.6, Eos # (Auto) 0.0, Baso # (Auto) 0.0, Sodium 139, Potassium 4.7, Chloride 105, Carbon Dioxide 23, Anion Gap 15.7 H, BUN 21 H, Creatinine 0.80, Estimated Creat Clear 41, Estimated GFR 70, Est GFR ( Amer) 85, Glucose 138 H, Calcium 9.4 02/28/23 16:56: POC Glucose 169 H 02/28/23 21:00: Troponin I 0.06 H I & O for Last 24 hours: Intake & Output 02/25/23 02/26/23 02/27/23 02/28/23 23:59 23:59 23:59 23:59 Intake Total 1500 / 1500 Output Total 600 / 600 Balance 900 / 900 Weight 51.256 kg 52.844 kg Constitutional Constitutional: no acute distress *Routine HEENT Exam Head: Present normocephalic Eye: Present EOMI and PERRL ENT: Present mucous membranes moist *Routine Neck Exam Neck: Present supple; Absent lymphadenopathy *Routine Respiratory Exam Respiratory: Present CTA bilaterally *Routine Cardiovascular Exam Cardiovascular: Present RRR *Routine Abdominal Exam Abdominal: Present soft and normoactive bowel sounds; Absent tenderness *Routine Extremities Exam Extremities: Absent cyanosis, clubbing or edema *Routine Skin Exam Skin: Present warm; Absent rash *Routine Neurological Exam Neurological: Present alert and oriented X3 Assessment and Plan *Assessment and plan (1) Femur fracture, left: Status: Acute Category: Medical Code(s): S72.92XA - Unspecified fracture of left femur, initial encounter for closed fracture (2) Fall: Status: Acute Category: Medical Code(s): W19.XXXA - Unspecified fall, initial encounter (3) Diabetes: Status: Acute Category: Medical Code(s): E11.9 - Type 2 diabetes mellitus without complications (4) Esophageal thickening: Status: Acute Category: Medical Code(s): K22.89 - Other specified disease of esophagus (5) Coronary artery disease: Status: Acute Category: Medical Code(s): I25.10 - Atherosclerotic heart disease of [place] coronary artery without angina pectoris (6) Hypertension: Status: Chronic Qualifiers: Hypertension type: essential hypertension Qualified Code(s): I10 - Essential (primary) hypertension Category: Medical Code(s): I10 - Essential (primary) hypertension (7) Hyperlipidemia: Status: Chronic Qualifiers: Hyperlipidemia type: other hyperlipidemia Qualified Code(s): E78.4 - Other hyperlipidemia Category: Medical Code(s): E78.5 - Hyperlipidemia, unspecified Plan #left intertrochanteric femur fracture #t2dm #cad #htn #hld The patient is to go to the OR today for her left intertrochanteric femur fracture. Continue treating pain as needed. Full code NPO DVT ppx: holding chemical prophylaxis until after surgery
[2023-03-01] VITALS (11 sets, daily range): BP systolic 95–146; BP diastolic 37–72; PULSE 86–100; RESP 16–22; TEMP 36.6–37.7; O2SAT 94–100; BMI 24.0
[2023-03-01 00:11] LABS: Troponin I 0.09 ng/ml (0.00-0.034)
[2023-03-01 01:48] LABS: POC Glucose,Bedside 172 (70-110)
[2023-03-01 04:45] LABS: Troponin I 0.09 ng/ml (0.00-0.034)
[2023-03-01 06:19] LABS: POC Glucose,Bedside 165 (70-110)
--- NOTE | 2023-03-01 07:52 | PC.NURSE ---
1956 Pt c/o pain in left hip 04/20. 2009 While administering Morphine, pt states she is also having mid sternal chest pain rating it 04/20. States it comes and goes but does not get worse or better when breathing in/out. YOLANDA Puente made aware, states to get EKG. EKG performed, read by Kwame GUERRERO. Also sends to MD TATYANA which states there is no change. Kwame GUERRERO states to turn off levophed drip at this time and give 1 L LR over 2 hr. Levophed held at 2019. Troponins x3 ordered.
--- NOTE | 2023-03-01 07:56 | PC.NURSE ---
2331 Pt troponin elevated to 0.09. Kwame Montesinos made aware. NNO at this time.
--- NOTE | 2023-03-01 09:27 | P.PN_ITS ---
Subjective *Date: 03/01/23 *Time: 07:05 Interval history: No acute events overnight. Pain is in control. Exam Data for Last 24 hours Vital signs and Labs for Last 24 Hours: Temp Pulse Resp BP Pulse Ox O2 Del Method O2 Flow Rate 98.4 F 98 H 20 104/45 L 94 L Room Air 10 03/01/23 08:00 03/01/23 08:00 03/01/23 08:00 03/01/23 08:00 03/01/23 08:00 03/01/23 08:00 02/28/23 13:10 Laboratory Results - last 24 hr 02/28/23 16:56: POC Glucose 169 H 02/28/23 21:00: Troponin I 0.06 H 02/28/23 22:06: POC Glucose 172 H 02/28/23 23:30: Troponin I 0.09 H 03/01/23 04:15: Troponin I 0.09 H 03/01/23 06:13: POC Glucose 165 H I & O for Last 24 hours: Intake & Output 02/26/23 02/27/23 02/28/23 03/01/23 23:59 23:59 23:59 23:59 Intake Total 1500 / 2696 1376 / 1376 Output Total 600 / 600 150 / 150 Balance 900 / 2096 1226 / 1226 Weight 51.256 kg 52.844 kg 55.701 kg Constitutional Constitutional: no acute distress *Routine HEENT Exam Head: Present normocephalic Eye: Present EOMI and PERRL ENT: Present mucous membranes moist *Routine Neck Exam Neck: Present supple; Absent lymphadenopathy *Routine Respiratory Exam Respiratory: Present CTA bilaterally *Routine Cardiovascular Exam Cardiovascular: Present RRR *Routine Abdominal Exam Abdominal: Present soft and normoactive bowel sounds; Absent tenderness *Routine Extremities Exam Extremities: Absent cyanosis, clubbing or edema *Routine Skin Exam Skin: Present warm; Absent rash *Routine Neurological Exam Neurological: Present alert and oriented X3 Assessment and Plan *Assessment and plan (1) Femur fracture, left: Status: Acute Category: Medical Code(s): S72.92XA - Unspecified fracture of left femur, initial encounter for closed fracture (2) Fall: Status: Acute Category: Medical Code(s): W19.XXXA - Unspecified fall, initial encounter (3) Diabetes: Status: Acute Category: Medical Code(s): E11.9 - Type 2 diabetes mellitus without complications (4) Esophageal thickening: Status: Acute Category: Medical Code(s): K22.89 - Other specified disease of esophagus (5) Coronary artery disease: Status: Acute Category: Medical Code(s): I25.10 - Atherosclerotic heart disease of [place] coronary artery without angina pectoris (6) Hypertension: Status: Chronic Qualifiers: Hypertension type: essential hypertension Qualified Code(s): I10 - Essential (primary) hypertension Category: Medical Code(s): I10 - Essential (primary) hypertension (7) Hyperlipidemia: Status: Chronic Qualifiers: Hyperlipidemia type: other hyperlipidemia Qualified Code(s): E78.4 - Other hyperlipidemia Category: Medical Code(s): E78.5 - Hyperlipidemia, unspecified Plan #left intertrochanteric femur fracture #t2dm #cad #htn #hld The patient had left cephalomedullary nail fixation for her left intertrochanteric femur fracture and the procedure was without complication. Continue treating pain as needed. R elbow x-ray report cannot exclude occult radial head fracture. I really appreciate Orthopedic Surgery's help. PT/OT Full code diabetic diet DVT ppx: leonel
--- NOTE | 2023-03-01 10:59 | HMH.PTEV ---
Physical Therapy Evaluation Rehab PT IP Evaluation Start: 02/28/23 13:23 Freq: ONCE Status: Active Protocol: Document 03/01/23 10:21 ISRAEL (Rec: 03/01/23 10:58 ISRAEL [id number]) Subjective/History History History Pt is a 72 y/o female who reported to [facility] ED on 02/27/23 for a ground-level fall onto the left side with complaint of left hip pain. The ED completed a traumatic work-up that included noncontrasted CT scan of the head, CT of the cervical spine, plain films of the left lower extremity, chest, left elbow. The workup resulted in fracture of the left intertrochanteric femur, possible fracture of the left proximal fibula, left joint effusion of the elbow and possible radial head fracture. Pt underwent cephalomedullary nail fixation for left intertrochanteric femur fracture on 02/28/23 and is WBAT. PMHX: CAD, CABG x 1, on plavix , DM, GERD, HTN, and osteoarthritis Subjective Subjective Pt reports she lives alone in an apartment building with 5-6 steps to enter. Pt denies having access to an elevator. Pt reports she has fallen a couple of times this year and had not been using an AD for ambulation. Pt reports severe right anterior and posterior hip pain this date rated 10/10 on VAS scale. Pt denies numbness or tingling with LLE intact to light touch sensation. Pt educated on WB status, proper use of RW for transfers/gait and importance of early mobility. Pt ambulated x3ft with maxAx2 and max verbal cueing for safe /porper gait with use of RW. Pt screamed out multiple times
--- NOTE | 2023-03-01 11:05 | HMH.OTEV ---
OT Inpatient Evaluation Rehab OT IP Evaluation Start: 02/28/23 13:23 Freq: ONCE Status: Active Protocol: Document 03/01/23 10:57 KOTA (Rec: 03/01/23 11:05 KOTA [id number]) Rehab OT IP Assessment Subjective History Procedure performed:: [id number]: Cephalomedullary nail fixation left intertrochanteric femur fracture Surgeon:: Adolfo Rai JR, MD ASSISTANT HEAD CASHIER:: Hemal Patel Anesthesia: MAC and spinal Estimated blood loss (mL): 200 Clinical Note:: 72-year-old female sustained left intertrochanteric femur fracture as a result of a ground-level fall. I had a discussion with her regarding further management. After discussion of risk, benefits, alternatives, she wished to proceed with cephalomedullary nail fixation left intertrochanteric femur fracture. We discussed the risk and benefits of surgery. Risks included but were not limited to pain, bleeding, infection, damage to adjacent structures, need for further surgery, wound healing complications, loss of limb, . Patient expressed verbal consent and written consent was obtained for the above procedure. Patient underwent ORIF to L LE after a fall at home on . Patient lives alone in 1 level apartment on the 2nd floor. Patient reported having 5-6 steps to enter 2nd floor apartment. Prior to the fall, Patient was independent with ADLs and fx'l mobility. Patient had transportation by family/friends if needed. Subjective It hurts. Patient laying in bed at
--- NOTE | 2023-03-01 11:17 | SW/DCPLANNER ---
Addendum entered by [facility] 03/03/23 07:33: Patient will discharge to [facility] SNF level of care: I have updated Lucas Brian. Addendum entered by Ayana Elmora 03/02/23 11:43: I have updated Lucas that patient will require a blood transfusion and will not be ready for discharge till tomorrow. I will continue to update patient, MD and [facility]. Addendum entered by [facility] 03/02/23 09:12: Lucas preciado/ Roc Woodard stated this patient has been approved per insurance for admission. I will update MD. Addendum entered by [facility] 03/01/23 12:43: Lucas Brian [facility] stated that she started precert on patient this AM. Original Note: I spoke with this patient regarding plans once medically stable for discharge. Patient resides in an upstairs apt by herself and has neighbors that check on her often. PT/OT evaluated patient and recommended SNF level of care once medically stable for discharge. Patient voiced that she preferred to stay in [place]: [place] does not have any beds and [facility] are not in network w/ patient's insurance. Patient is agreeable to placement in [place]: patient information has been faxed to Lucas preciado/ Roc Woodard in [facility]. Per MD patient is medically stable for discharge today. I will continue to follow up with MD zuleima and Lucas preciado/ Roc Woodard.
--- NOTE | 2023-03-01 14:14 | PC.NURSE ---
Pt has had difficulty ambulating to chair or even sitting on the side of the bed via PT. Pain medication administered. She has also c/o discomfort to (L) elbow. Ortho consult placed per MD Mccormack. notified that labs were not obtainable. Labs cancelled for today.
--- NOTE | 2023-03-01 15:00 | EXP.ORTH.PN ---
Subjective *Date: 03/01/23 *Time: 15:01 Interval history: Patient had x-ray of left elbow which showed possible elevation of anterior fat pad. I was called to evaluate x-ray patient in regards to treatment options for the elbow. Ortho Exam (Inpt) Vital signs and Labs for Last 24 Hours: Temp Pulse Resp BP Pulse Ox O2 Del Method O2 Flow Rate 98.1 F 95 H 19 101/56 L 98 Room Air 10 03/01/23 12:00 03/01/23 14:00 03/01/23 14:00 03/01/23 14:00 03/01/23 14:00 03/01/23 14:00 02/28/23 13:10 Laboratory Results - last 24 hr 02/28/23 16:56: POC Glucose 169 H 02/28/23 21:00: Troponin I 0.06 H 02/28/23 22:06: POC Glucose 172 H 02/28/23 23:30: Troponin I 0.09 H 03/01/23 04:15: Troponin I 0.09 H 03/01/23 06:13: POC Glucose 165 H I & O for Labs for Last 24 Hours: Intake & Output 02/26/23 02/27/23 02/28/23 03/01/23 23:59 23:59 23:59 23:59 Intake Total 1500 / 2696 1496 / 1496 Output Total 600 / 600 150 / 150 Balance 900 / 2096 1346 / 1346 Weight 113 lb 116 lb 8 oz 122 lb 12.8 oz Additional findings:: Left elbow: Mild soft tissue swelling posteriorly with small laceration. No drainage. Full passive range of motion with flexion extension full active range of motion with flexion extension. No pain radiating to the elbow with passive or active pronation and supination. Assessment and Plan *Assessment and plan (1) Left elbow contusion: Status: Acute Qualifiers: Encounter type: initial encounter Qualified Code(s): S50.02XA - Contusion of left elbow, initial encounter Category: Medical Code(s): S50.02XA - Contusion of left elbow, initial encounter Plan I examined the patient reviewed the x-rays. There is no evidence of fracture clinically. The contusion is posteriorly along the aspect of the olecranon. Continue with hip rehabilitation as tolerated.
--- NOTE | 2023-03-01 15:02 | DIET.NUTRFU ---
RD saw patient today, she indicated swallowing issues upon admit. When interviewed patient she indicated she needs to have her esophagus stretched for the fourth time next month. She has been eating only soft foods at home- cottage cheese/eggs/soft sandwich/ice cream. She did not want her diet changed to MSOFT, reviewed menu selection with her and was able to pick a protein for all meals. She lives alone, plans to go someone for rehab post discharge. She report stable wt. She also reports stable BS, takes metformin at home and does not routine;ly check her BS but recalls then being <100. Currently BS are 165-170, insulin ordered. She likes D. pepsi with her meals, but does not count her carbs or sugar otherwise. Denies any GI distress. RD will follow-up with nutritional needs.
[2023-03-01 18:57] LABS: POC Glucose,Bedside 221 (70-110)
[2023-03-01 21:23] LABS: POC Glucose,Bedside 231 (70-110)
[2023-03-02] VITALS (18 sets, daily range): BP systolic 81–124; BP diastolic 41–63; PULSE 88–107; RESP 16–20; TEMP 36.2–37.3; O2SAT 93–99; BMI 26.3
[2023-03-02 06:09] LABS: POC Glucose,Bedside 144 (70-110)
[2023-03-02 07:38] LABS: Basophils % 0.2 % (0.1-2.0); Eosinophils % 0.2 % (0.1-12.0); Lymphocytes % 15.1 % (10-50); Mean Corpuscular HGB Conc 33.4 g/dL (31.8-35.4); Mean Corpuscular Hemoglobin 32.7 pg (27.0-31.2); Mean Corpuscular Volume 98.1 fl (81-99); Mean Platelet Volume 7.8 fl (7.4-10.4); Monocytes # 0.7 K/mm3 (0.1-1.0); Monocytes % 10.5 % (1.7-9.3); Neutrophils # 4.9 K/mm3 (1.8-7.8); Neutrophils % 74.1 % (37.0-80.0); Platelet Count 178 K/mm3 (142-424); Red Blood Count 1.89 M/mm3 (4.20-5.40); Red Cell Distribution Width 16.8 % (11.5-17.5); White Blood Count 6.6 K/mm3 (4.8-10.8)
[2023-03-02 07:44] LABS: Chloride 107 mmol/L (98-107); Potassium 3.8 mmoL/L (3.5-5.1); Sodium 136 mmol/L (136-145)
[2023-03-02 07:47] LABS: Anion Gap 11.8 mEq/L (5-15); Blood Urea Nitrogen 17 mg/dl (7-17); Carbon Dioxide 21 mmol/L (22.0-30.0); Creatinine Clearance Estimated 47 mL/min (50-200); Estimated Glomerular Filt Rate 82 ml/min (>60); GFR (African American) 99 ML/MIN (>60)
[2023-03-02 07:48] LABS: Calcium 8.9 mg/dl (8.4-10.2); Glucose 117 mg/dl (74-100)
[2023-03-02 07:51] LABS: Hematocrit 18.5 % (37.0-47.0); Hemoglobin 6.2 g/dL (12.2-16.2)
[2023-03-02 10:43] LABS: POC Glucose,Bedside 182 (70-110)
--- NOTE | 2023-03-02 11:52 | EXP.ANES.II ---
[facility] Anesthesia Record Part II Anesthesia Record Part II Discharge Time: 14:30 Destination: Second Floor PACU nurse assessment reviewed?: Yes Patient Condition:: Good Anesthesia Complications:: None Swallowing reflex intact?: Yes Airway Patency: Patent Cyanosis?: No Blood Pressure: 81/42 SaO2: 99 Respiratory Rate: 16 Pulse Rate: 88 Temperature: 97.2 F Mental Status: Alert & Oriented Pain level:: 0 Nausea and/or vomitting:: None Intake, IV Amount: 0 Hydration: Adequate
[2023-03-02 16:38] LABS: POC Glucose,Bedside 146 (70-110)
--- NOTE | 2023-03-02 18:25 | PC.NURSE ---
Called to room because pt thought she had some chest pain. On eval stated it was gas and asked for some pain medication. vs: 121/54 p: 104 RR: 17
--- NOTE | 2023-03-02 18:27 | EXP.ACUTE.PN ---
Subjective *Date: 03/02/23 *Time: 18:31 Interval history: Patient states she is feeling fairly well this morning. Stable on room air. Still having left hip pain. Is sad when told she will not discharge today due to her low blood levels. Labs reviewed showing anemia, awaiting transfusion. Crossmatch difficult. Tolerating p.o. intake. Working with therapy. Medical Exam Vital signs and Labs for Last 24 Hours: Vital Signs Temp Pulse Resp BP Pulse Ox O2 Del Method 03/02/23 17:57 Room Air 03/02/23 16:30 Room Air 03/02/23 15:17 97.9 F 98 H 18 119/63 98 Room Air 03/02/23 15:00 Room Air 03/02/23 12:51 Room Air 03/02/23 11:14 98.6 F 98 H 18 108/53 L 93 L Room Air 03/02/23 09:55 Room Air 03/02/23 08:00 97 Room Air 03/02/23 09:00 Room Air 03/02/23 07:50 98.3 F 97 H 18 98/50 L 93 L Room Air 03/02/23 06:43 Room Air 03/02/23 04:56 Room Air 03/02/23 04:00 98.5 F 107 H 18 106/54 L 94 L Room Air 03/02/23 02:26 Room Air 03/02/23 01:00 Room Air 03/02/23 00:00 98.6 F 97 H 18 90/55 L 97 Room Air 03/01/23 23:00 Room Air 03/01/23 21:00 Room Air 03/01/23 20:00 Room Air 03/01/23 20:00 97.8 F 86 18 110/72 98 Room Air 03/01/23 18:32 Room Air 03/02/23 11:53 16 Intake and Output 03/02/23 03/02/23 03/02/23 07:59 15:59 23:59 Intake Total 1361 / 1841 480 / 1841 Output Total 400 / 1500 0 / 1500 1100 / 1500 Balance 961 / 341 480 / 341 -1100 / 341 Intake: Intake, Oral Amount 480 / 960 480 / 960 Intake, Total IV Amount 881 / 881 0 / 881 0.9 % Sodium Chloride 1000ML 1, 881 / 881 000 ml @ 75 mls/hr IV .[id number] [facility] Rx#:[id number] Output: Output, Urine Amount 400 / 1500 0 / 1500 1100 / 1500 Other: Number of Unmeasured Voids 0 0 0 Weight 60.81 kg Patient Weight 03/02/23 23:59 Weight 60.81 kg Laboratory Results - last 24 hr 03/01/23 18:31: POC Glucose 221 H 03/01/23 20:13: POC Glucose 231 H 03/02/23 05:27: POC Glucose 144 H 03/02/23 07:05: WBC 6.6, RBC 1.89 L* D, Hgb 6.2 L*, Hct 18.5 L*, MCV 98.1, MCH 32.7 H, MCHC 33.4, RDW 16.8, Plt Count 178, MPV 7.8, Neut % (Auto) 74.1, Lymph % (Auto) 15.1, [place] % (Auto) 10.5 H, Eos % (Auto) 0.2, Baso % (Auto) 0.2, Neut # (Auto) 4.9, Lymph # (Auto) 1.0, [place] # (Auto) 0.7, Eos # (Auto) 0.0, Baso # (Auto) 0.0, Sodium 136, Potassium 3.8, Chloride 107, Carbon Dioxide 21 L, Anion Gap 11.8, BUN 17, Creatinine 0.70, Estimated Creat Clear 47, Estimated GFR 82, Est GFR ( Amer) 99, Glucose 117 H, Calcium 8.9 03/02/23 08:20: Blood Type A Negative, Antibody Screen Negative, Crossmatch (AHG) See Detail 03/02/23 10:25: POC Glucose 182 H 03/02/23 16:28: POC Glucose 146 H I & O for Labs for Last 24 Hours: Intake & Output 02/27/23 02/28/23 03/01/23 03/02/23 23:59 23:59 23:59 23:59 Intake Total 1500 / 2696 2176 / 2176 1841 / 1841 Output Total 600 / 600 550 / 550 1500 / 1500 Balance 900 / 2096 1626 / 1626 341 / 341 Weight 51.256 kg 52.844 kg 55.7 kg 60.81 kg Constitutional: Present no acute distress, average body habitus, chronically ill appearing and cooperative Head: Present atraumatic and normocephalic Neck: Present normal inspection Respiratory: Present normal respiratory effort; Absent rhonchi, wheezes or crackles Cardiac: Present Reg Rate and Rhythm GI: Present soft and normal bowel sounds; Absent distention or tenderness Extremities: Present normal inspection Comment:: Left hip with surgical bandage in place, tender to palpation. No significant bleeding or drainage. Skin: Present intact; Absent erythema Neuro: Present Grossly Intact and moves all extremities Assessment and Plan *Assessment and plan (1) Femur fracture, left: Status: Acute Category: Medical Code(s): S72.92XA - Unspecified fracture of left femur, initial encounter for closed fracture (2) Blood loss anemia: Status: Acute Categor
[2023-03-02 20:26] LABS: POC Glucose,Bedside 212 (70-110)
[2023-03-03] VITALS (13 sets, daily range): BP systolic 97–144; BP diastolic 45–79; PULSE 84–93; RESP 16–20; TEMP 36.7–37.3; O2SAT 91–96; BMI 27.3
--- NOTE | 2023-03-03 04:12 | PC.NURSE ---
PATIENT HAS RECEIVED 2 UNITS PRBCs. NO S/S OF TRANSFUSION REACTION. 1 HR POST TRANSFUSION H&H SCHEDULED FOR 414 AM.
[2023-03-03 04:36] LABS: Basophils % 0.2 % (0.1-2.0); Eosinophils % 0.5 % (0.1-12.0); Hematocrit 24.9 % (37.0-47.0); Lymphocytes # 1.2 K/mm3 (0.7-4.5); Lymphocytes % 18.1 % (10-50); Mean Corpuscular HGB Conc 33.3 g/dL (31.8-35.4); Mean Corpuscular Hemoglobin 30.4 pg (27.0-31.2); Mean Corpuscular Volume 91.4 fl (81-99); Mean Platelet Volume 8.3 fl (7.4-10.4); Monocytes # 0.6 K/mm3 (0.1-1.0); Monocytes % 8.8 % (1.7-9.3); Neutrophils # 4.9 K/mm3 (1.8-7.8); Neutrophils % 72.4 % (37.0-80.0); Platelet Count 165 K/mm3 (142-424); Red Blood Count 2.72 M/mm3 (4.20-5.40); Red Cell Distribution Width 17.1 % (11.5-17.5); White Blood Count 6.8 K/mm3 (4.8-10.8)
[2023-03-03 04:44] LABS: Hemoglobin 8.3 g/dL (12.2-16.2)
[2023-03-03 04:55] LABS: Alanine Aminotransferase 18 U/L (12-78); Albumin Level 2.5 g/dl (3.5-5.0); Albumin/Globulin Ratio 1.1 (1.1-1.8); Alkaline Phosphatase 94 U/L (38-126); Aspartate Amino Transferase 44 U/L (14-36); Bilirubin,Total 1.6 mg/dl (0.2-1.3); Blood Urea Nitrogen 14 mg/dl (7-17); Calcium 8.5 mg/dl (8.4-10.2); Carbon Dioxide 22 mmol/L (22.0-30.0); Chloride 106 mmol/L (98-107); Creatinine Clearance Estimated 47 mL/min (50-200); Estimated Glomerular Filt Rate 82 ml/min (>60); GFR (African American) 99 ML/MIN (>60); Globulin 2.3 g/dL (1.3-3.2); Glucose 111 mg/dl (74-100); Magnesium 1.7 mg/dl (1.6-2.3); Sodium 135 mmol/L (136-145); Total Protein,Serum 4.8 g/dl (6.3-8.2)
--- NOTE | 2023-03-03 07:26 | EXP.DC.SUM ---
General Admission date:: 02/28/23 Discharge date: 03/03/23 HPI HPI HPI: 72 year old female present to the ED after falling tonight. PMHX of CAD, CABG x 1, on plavix, DM, gerd, htn, and osteoarthritis. 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 The ED completed a traumatic work-up that inculded noncontrasted CT scan of the head, CT of the cervical spine, plain films of the left lower extremity, chest, left elbow. The workup resulted in fracture of the left intertrochanteric femur, possible fracture of the left proximal fibula, left joint effusion of the elbow and possible radial head fracture. The ED physician consulted Dr. Baker with orthopedics who stated to make the pt NPO at midnight for surgery in the morning. The ED physician consulted the hospitalist team for further medical management. The patient arrives to the medical floor c/o left hip pain. Denies lower leg pain or left elbow pain. She denies nausea or vomiting. She reports last taking her plavix at 7 a.m on 02/27/23. She is hemodynamically stable. Hospital Course Hospital Course Hospital Course: 72-year-old female status post left hip fracture, Surgery performed 02/28. Tolerated well. PT and OT evaluated, recommend placement. Found to have anemia the morning of 03/02. Transfused 2 units and responded well with improvement in her hemoglobin to 8.3. Remains hemodynamically stable this morning for discharge to rehab. Problems addressed during hospitalization as follows: #left intertrochanteric femur fracture -Status post surgical fixation on 02/28. Orthopedics consulted, appreciate their assistance in care. PT and OT evaluated and recommend placement. Plan to continue Xarelto for DVT prophylaxis. Patient is weightbearing as tolerated. Follow-up with orthopedics in 1 week #t2dm -Sliding scale insulin with fingersticks ACHS during hospitalization. Resume her metformin at time of discharge. A1c 5.8 this month. #cad #htn #hld -Continued home regimen during cessation. Had plan to splint 81 g daily, Lipitor 40 mg daily, Plavix 75 mg daily week isosorbide mononitrate 30 mg daily, lisinopril 20 mg daily, and metoprolol 50 mg daily. Blood loss anemia -Transfusion threshold hemoglobin less than 7. Hemoglobin of 6.2 morning of 03/02. Received 2 units of blood with good response. Needs repeat CBC in 1 week. Continue dual therapy for GI prophylaxis. Continue famotidine 20 mg daily and pantoprazole 40 mg PO nightly. Stable for [facility] to jail. Spent 35 minutes in discharge counseling and direct care with patient. Exam Data for Last 24 hours Vital signs and Labs for Last 24 Hours: Temp Pulse Resp BP Pulse Ox O2 Del Method O2 Flow Rate 98.6 F 92 H 18 122/79 94 L Room Air 10 03/03/23 04:15 03/03/23 04:15 03/03/23 04:15 03/03/23 04:15 03/03/23 04:15 03/03/23 06:43 02/28/23 13:10 Laboratory Results - last 24 hr 03/02/23 07:05: WBC 6.6, RBC 1.89 L* D, Hgb 6.2 L*, Hct 18.5 L*, MCV 98.1, MCH 32.7 H, MCHC 33.4, RDW 16.8, Plt Count 178, MPV 7.8, Neut % (Auto) 74.1, Lymph % (Auto) 15.1, [place] % (Auto) 10.5 H, Eos % (Auto) 0.2, Baso % (Auto) 0.2, Neut # (Auto) 4.9, Lymph # (Auto) 1.0, [place] # (Auto) 0.7, Eos # (Auto) 0.0, Baso # (Auto) 0.0, Sodium 136, Potassium 3.8, Chloride 107, Carbon Dioxide 21 L, Anion Gap 11.8, BUN 17, Creatinine 0.70, Estimated Creat Clear 47, Estimated GFR 82, Est GFR ( Amer) 99, Glucose 117 H, Calcium 8.9 03/02/23 08:20: Blood Type A Negative, Antibody Screen Negative, Crossmatch (AHG) See Detail 03/02/23 10:25: POC Glucose 182 H 03/02/23 16:28: POC Glucose 146 H 03/02/23 20:16: POC Glucose 212 H 03/03/23 04:30: WBC 6.8, RBC 2.72 L D, Hgb 8.3 L D, Hct 24.9 L, MCV 91.4, MCH 30.4, MCHC 33.3, RDW 17.1, Plt Count 165, MPV 8.3, Neut % (Auto) 72.4, Lymph % (Auto) 18.1, [place] % (Auto) 8.8, Eos % (Auto) 0.5, Baso % (Auto) 0.2, Neut # (Auto) 4.9, Lymph # (Auto) 1.2, [place] # (Auto) 0.6, Eos # (Auto) 0.0, Baso # (Auto) 0.0
[2023-03-03 10:48] LABS: POC Glucose,Bedside 171 (70-110)
== END 2023-03-03 13:26 | DRG 482 ==
LOC: ER 20:57 → 2ND 22:48
PROVIDERS: Internal Medicine Adolescent Medicine; Nurse Practitioner Critical Care Medicine; Orthopaedic Surgery; Admitting Provider Internal Medicine; Emergency Provider Emergency Medicine; Visit Provider Internal Medicine
PROC: 0QS706Z Reposition Left Upper Femur with Intramedullary Internal Fixation Device, Open Approach (ICD-10-PCS; principal; 2023-02-28 11:00)
DX: S72.142A Displaced intertrochanteric fracture of left femur, initial encounter for closed fracture (principal); W19.XXXA Unspecified fall, initial encounter; E11.9 Type 2 diabetes mellitus without complications; K22.89 Other specified disease of esophagus; I25.10 Atherosclerotic heart disease of native coronary artery without angina pectoris; I10 Essential (primary) hypertension; Z95.5 Presence of coronary angioplasty implant and graft; E78.5 Hyperlipidemia, unspecified; D50.0 Iron deficiency anemia secondary to blood loss (chronic)
CPT/HCPCS: 27245; 36415; 51702; 70450; 71045; 72125; 72170; 73070; 73502; 73552; 73560; 73700; 76000; 80048; 80053; 81001; 82962; 83735; 84484; 85025; 86850; 93005; 97110; 97162; 97165; 97530; 99285; C1713; C1769; C1776; G0378; J3475; P9016

== ENCOUNTER → 2023-04-16 17:40 | Outpatient (CLI) | payer MEDICARE, OTHER, SELFPAY ==
[2023-04-16 18:53] LABS: Basophils % 0.3 % (0.1-2.0); Eosinophils # 0.1 K/mm3 (0.0-0.4); Eosinophils % 0.6 % (0.1-12.0); Hematocrit 31.7 % (37.0-47.0); Lymphocytes % 11.6 % (10-50); Mean Corpuscular HGB Conc 31.6 g/dL (31.8-35.4); Mean Corpuscular Hemoglobin 30.4 pg (27.0-31.2); Mean Corpuscular Volume 95.9 fl (81-99); Mean Platelet Volume 8.1 fl (7.4-10.4); Monocytes # 0.5 K/mm3 (0.1-1.0); Monocytes % 5.5 % (1.7-9.3); Neutrophils # 7.1 K/mm3 (1.8-7.8); Platelet Count 276 K/mm3 (142-424); Red Blood Count 3.31 M/mm3 (4.20-5.40); Red Cell Distribution Width 17.2 % (11.5-17.5); White Blood Count 8.6 K/mm3 (4.8-10.8)
[2023-04-16 20:28] LABS: Chloride 104 mmol/L (98-107)
[2023-04-16 20:29] LABS: Potassium 5.1 mmoL/L (3.5-5.1); Sodium 136 mmol/L (136-145)
[2023-04-16 20:32] LABS: Anion Gap 14.1 mEq/L (5-15); Blood Urea Nitrogen 17 mg/dl (7-17); Carbon Dioxide 23 mmol/L (22.0-30.0); Estimated Glomerular Filt Rate 82 ml/min (>60); GFR (African American) 99 ML/MIN (>60); Glucose 85 mg/dl (74-100); Iron 67 ug/dL (37-170)
[2023-04-16 21:12] LABS: Thyroid Stimulating Hormone 1.51 uIU/mL (0.465-4.68)
[2023-04-16 22:59] LABS: Total Iron Binding Capacity 245 ug/dL (265-497)
== END ==
PROVIDERS: PCP Internal Medicine; Visit Provider Internal Medicine
DX: D64.9 Anemia, unspecified (principal); I10 Essential (primary) hypertension; I25.10 Atherosclerotic heart disease of native coronary artery without angina pectoris; K22.2 Esophageal obstruction; R13.10 Dysphagia, unspecified
CPT/HCPCS: 80048; 83540; 83550; 84443; 85025; 85044

== ENCOUNTER → 2023-04-29 13:51 | Outpatient (CLI) | payer MEDICARE, OTHER, SELFPAY ==
--- NOTE | 2023-04-29 13:54 | MM_ITS ---
PROCEDURE INFORMATION: Exam: MG Bilateral Screening 3D Mammography Exam date and time: 04/29/2023 1:47 PM Age: 72 years old Clinical indication: Screening. No family history of breast cancer. TECHNIQUE: Imaging protocol: Bilateral Screening tomosynthesis and 2D mammography including computer-aided detection (CAD) when performed. COMPARISON: 1. MG MM DIG SCREENING MAMM BI W/CAD 02/23/2022 3:23 PM 2. MG SCBI MM Dig screening mamm BI w/CAD 01/21/2018 9:56 AM 3. MG DMSB DIG MAMM-SCREEN BRIAN W/CAD 01/19/2017 5:44 PM 4. MG DMSB DIG MAMM-SCREEN BRIAN 01/17/2016 4:13 PM FINDINGS: MAMMOGRAPHY: Breast composition: There are scattered areas of fibroglandular density. Mass: No suspicious mass. Architectural distortion: None. Calcifications: No suspicious calcifications. Asymmetric density: None. Skin thickening: None. Axillary adenopathy: None. Other findings: Pacemaker in the left axilla, limits evaluation and accentuates the importance of clinical breast exam. IMPRESSION: No mammographic evidence of malignancy. Annual screening is recommended unless otherwise clinically indicated. ASSESSMENT: BI-RADS Category 1: Negative
== END ==
PROVIDERS: PCP Internal Medicine; Visit Provider Internal Medicine
DX: Z12.31 Encounter for screening mammogram for malignant neoplasm of breast (principal)
CPT/HCPCS: 77063; 77067

== ENCOUNTER → 2023-05-17 14:59 | Outpatient (CLI) | payer MEDICARE, OTHER, SELFPAY ==
[2023-05-17 16:29] LABS: Basophils # 0.1 K/mm3 (0-0.2); Basophils % 1.2 % (0.1-2.0); Eosinophils # 0.1 K/mm3 (0.0-0.4); Eosinophils % 1.3 % (0.1-12.0); Hematocrit 31.7 % (37.0-47.0); Hemoglobin 10.4 g/dL (12.2-16.2); Lymphocytes # 1.2 K/mm3 (0.7-4.5); Lymphocytes % 23.8 % (10-50); Mean Corpuscular HGB Conc 32.8 g/dL (31.8-35.4); Mean Corpuscular Hemoglobin 33.7 pg (27.0-31.2); Mean Corpuscular Volume 102.7 fl (81-99); Mean Platelet Volume 8.5 fl (7.4-10.4); Monocytes # 0.4 K/mm3 (0.1-1.0); Monocytes % 8.5 % (1.7-9.3); Neutrophils # 3.2 K/mm3 (1.8-7.8); Neutrophils % 65.2 % (37.0-80.0); Platelet Count 208 K/mm3 (142-424); Red Blood Count 3.09 M/mm3 (4.20-5.40); Red Cell Distribution Width 16.5 % (11.5-17.5); White Blood Count 4.9 K/mm3 (4.8-10.8)
== END ==
PROVIDERS: PCP Internal Medicine; Visit Provider Internal Medicine
DX: D64.9 Anemia, unspecified (principal)
CPT/HCPCS: 85025

== ENCOUNTER → 2023-05-21 15:05 | Outpatient (CLI) | payer MEDICARE, OTHER, SELFPAY ==
[2023-05-21 17:08] LABS: Vitamin B12 615 pg/mL (239-931)
== END ==
PROVIDERS: PCP Internal Medicine; Visit Provider Internal Medicine
DX: D64.9 Anemia, unspecified (principal)
CPT/HCPCS: 82607; 82746

== ENCOUNTER 2023-05-22 16:48 | Emergency (ER) | payer MEDICARE, OTHER, SELFPAY ==
[2023-05-22 16:50] VITALS: BP 190/78; PULSE 74; RESP 18; TEMP 36.7; O2SAT 100; BMI 22.2
[2023-05-22 17:29] VITALS: BP 187/82; PULSE 70; O2SAT 93
--- NOTE | 2023-05-22 17:30 | PC.NURSE ---
Rounded on patient; call light within reach of patient. Warm blanket provided to patient and family member.
--- NOTE | 2023-05-22 17:45 | HMH.EDGENADL ---
Discharge Plan Disposition Patient Disposition: Home, Self-Care Condition: Good Prescriptions Prescriptions: New nitrofurantoin monohyd/m-cryst [Macrobid] 100 mg capsule 100 mg PO BID 7 Days Qty: 14 0RF Rx Instructions: must administer with a meal/food No Action lisinopril 20 mg tablet 20 mg PO DAILY Qty: 90 3RF isosorbide mononitrate 30 mg tablet extended release 24 hr 30 mg PO DAILY Qty: 90 3RF atorvastatin 40 mg tablet 40 mg PO DAILY Qty: 90 3RF aspirin 81 mg tablet,chewable 81 mg PO DAILY Qty: 90 3RF venlafaxine 37.5 mg tablet 37.5 mg PO BID metformin 500 mg tablet 500 mg PO BID quetiapine [Seroquel] 50 mg tablet 50 mg PO HS Calcium 600 + D(3) 600 mg calcium- 200 unit capsule 600 cap PO DAILY acetaminophen [Pain Relief ES (acetaminophen)] 500 mg tablet 500 - 1,000 mg PO Q6HP PRN (Reason: Pain) clopidogrel [Plavix] 75 mg tablet 75 mg PO DAILY famotidine 20 mg tablet 20 mg PO DAILY Rx Instructions: TAKE ONE TABLET BY MOUTH ONCE A DAY metoprolol succinate 50 mg tablet extended release 24 hr 50 mg PO DAILY meclizine 12.5 mg tablet 12.5 mg PO DAILYP PRN (Reason: Dizziness Or Vertigo) Xarelto 10 mg tablet 10 mg PO DAILY Qty: 35 0RF Rx Instructions: for 35 days ondansetron 4 mg tablet,disintegrating 4 mg PO Q8H PRN (Reason: nausea and vomiting) Qty: 30 0RF sennosides-docusate sodium [Stool Softener-Stimulant Laxat] 8.6-50 mg Tablet 1 tab PO DAILY PRN (Reason: Constipation) Qty: 0 0RF pantoprazole 40 mg Tablet,Delayed Release (Dr/Ec) 40 mg PO HS Qty: 0 0RF venlafaxine 37.5 mg Tablet 37.5 mg PO BID Qty: 0 0RF oxycodone 5 mg Tablet 5 mg PO Q6HP PRN (Reason: Moderate Pain (4-6)) 3 Days Qty: 12 0RF diazepam 2 mg tablet 2 mg PO TID PRN (Reason: Anxiety) 30 Days Qty: 90 0RF gabapentin 100 mg capsule 200 mg PO HS 30 Days Qty: 60 0RF Referrals Follow up/Referrals: Hansel Ruff MD [Primary Care Provider] - See instructions Activity Restrictions/Add. Instructions Additional Instructions/Restrictions: You were evaluated in the emergency department today. You have a urinary tract infection. Please order picker your prescription for antibiotics at the pharmacy and take as prescribed. Follow-up with your primary care provider on Wednesday for reassessment. Return to the emergency department for new or worsening symptoms. Take Tylenol and ibuprofen as needed for pain. Clinical Impressions Clinical Impression: Urinary tract infection Instructions Patient Instructions: DI for Urinary Tract Infection (UTI) Discharge ED Provider: Glenys Hassan General Adult HPI General Chief complaint: Urogenital-Female Stated complaint: Unable to pee Time Seen by Provider: 05/22/23 16:54 Mode of Arrival: Wheelchair Source of Information: Patient Limitations: No Limitations Description of Symptoms (Recalled from ER Triage Doc. by RN): Patient states that she has been having difficulty urinating since yesterday. States that she had no difficulty yesterday. Patient advises that she has drank multiple sodas and bottles of water today and only able to urinate a couple drops of urine. Does complain of mild off and on pubic region pain. History of Present Illness HPI narrative: This patient is a 72-year-old female with a history of CAD status post CABG, hypertension, hyperlipidemia, and aortic valve replacement presented to the emergency department for evaluation for urinary frequency, urgency, and sensation that she is unable to empty her bladder. This started today. She denies any other associated symptoms, such as fevers, chills, flank pain, nausea, vomiting, changes in bowel movements, or other concerns. She states she had some mild lower abdominal/suprapubic pain. She states that she has drank multiple liquids today with and is only able to get a couple of drops of urine at a time. No other co
[2023-05-22 18:35] LABS: Microscopic, Urine URINE MICROSCOPIC (MICROSCOPIC)
[2023-05-22 18:45] LABS: Chloride 99 mmol/L (98-107); Potassium 4.7 mmoL/L (3.5-5.1); Sodium 133 mmol/L (136-145)
[2023-05-22 18:46] LABS: Appearance,Urine CLEAR (Clear); Bilirubin,Urine Negative (Negative); Blood, Urine Negative (Negative); Color,Urine YELLOW (Yellow); Glucose,Urine (UA) Negative (Negative); Ketones,Urine Negative (Negative); Leukocyte Esterase,Urine 1+ (Negative); Nitrate,Urine Negative (Negative); PH,Urine 5.5 (5.0-8.5); Protein,Urine Negative (Negative); Specific Gravity, Urine <= 1.005 (1.005-1.030); Urobilinogen,Urine 0.2 EU/dl (0.2)
[2023-05-22 18:48] LABS: Alanine Aminotransferase 23 U/L (12-78); Albumin Level 4.8 g/dl (3.5-5.0); Albumin/Globulin Ratio 2.1 (1.1-1.8); Alkaline Phosphatase 88 U/L (38-126); Anion Gap 13.7 mEq/L (5-15); Aspartate Amino Transferase 31 U/L (14-36); Bilirubin,Total 0.3 mg/dl (0.2-1.3); Blood Urea Nitrogen 19 mg/dl (7-17); Carbon Dioxide 25 mmol/L (22.0-30.0); Creatinine Clearance Estimated 40 mL/min (50-200); Estimated Glomerular Filt Rate 82 ml/min (>60); GFR (African American) 99 ML/MIN (>60); Globulin 2.3 g/dL (1.3-3.2); Total Protein,Serum 7.1 g/dl (6.3-8.2)
[2023-05-22 18:49] LABS: Calcium 9.4 mg/dl (8.4-10.2); Glucose 139 mg/dl (74-100)
[2023-05-22 18:58] LABS: Basophils % 0.4 % (0.1-2.0); Eosinophils # 0.1 K/mm3 (0.0-0.4); Eosinophils % 1.6 % (0.1-12.0); Hematocrit 31.7 % (37.0-47.0); Hemoglobin 10.7 g/dL (12.2-16.2); Lymphocytes # 0.9 K/mm3 (0.7-4.5); Lymphocytes % 15.9 % (10-50); Mean Corpuscular HGB Conc 33.9 g/dL (31.8-35.4); Mean Corpuscular Hemoglobin 32.4 pg (27.0-31.2); Mean Corpuscular Volume 95.5 fl (81-99); Mean Platelet Volume 7.8 fl (7.4-10.4); Monocytes # 0.4 K/mm3 (0.1-1.0); Neutrophils % 75.1 % (37.0-80.0); Platelet Count 226 K/mm3 (142-424); Red Blood Count 3.32 M/mm3 (4.20-5.40); Red Cell Distribution Width 16.5 % (11.5-17.5); White Blood Count 5.4 K/mm3 (4.8-10.8)
[2023-05-22 19:00] VITALS: BP 145/67; PULSE 71; RESP 16; O2SAT 100
[2023-05-22 19:08] LABS: Bacteria,Urine Trace /lpf; Squamous Epithelial Cell,Urine Occasional #/hpf (0-5)
--- NOTE | 2023-05-22 19:29 | PC.NURSE ---
Rowdy rounded on patient; call light within reach of patient
[2023-05-22 19:36] VITALS: BP 133/59; PULSE 71; O2SAT 98
[2023-05-22 20:00] VITALS: BP 139/59; PULSE 76; RESP 16; O2SAT 99
[2023-05-22 20:04] VITALS: BP 139/59; PULSE 73; RESP 16; TEMP 36.7; O2SAT 98
== END 2023-05-22 20:08 | disposition home or self-care (01) ==
PROVIDERS: Emergency Provider Emergency Medicine; PCP Internal Medicine
DX: N39.0 Urinary tract infection, site not specified (principal); B96.89 Other specified bacterial agents as the cause of diseases classified elsewhere; R10.30 Lower abdominal pain, unspecified; E87.1 Hypo-osmolality and hyponatremia; I25.10 Atherosclerotic heart disease of native coronary artery without angina pectoris; I11.9 Hypertensive heart disease without heart failure; I65.29 Occlusion and stenosis of unspecified carotid artery; E78.5 Hyperlipidemia, unspecified; Z95.5 Presence of coronary angioplasty implant and graft
CPT/HCPCS: 80053; 81001; 85025; 87086; 96360; 99284

== ENCOUNTER 2023-06-02 10:50 | Day surgery (SDC) | payer MEDICARE, MEDICAID, SELFPAY ==
[2023-06-02 11:26] VITALS: BP 149/65; PULSE 83; RESP 18; TEMP 36.3; O2SAT 98; BMI 22.2
[2023-06-02 11:37] LABS: POC Glucose,Bedside 112 (70-110)
--- NOTE | 2023-06-02 12:17 | P.PNANES_ITS ---
[facility] Disclaimer: The information contained in this section may have been updated after the patient was seen, as this information can be updated by other users. Medical History Carotid artery stenosis Coronary artery disease History of left heart catheterization Surgical History History of permanent cardiac pacemaker placement S/P CABG x 1 Status post aortic valve replacement with bioprosthetic valve Family History Other Family history of cancer Family history of diabetes mellitus type II Family history of hypertension Family history of myocardial infarction Social History Smoking Status: Never smoker second hand exposure: Yes alcohol intake: never substance use type: denies use current occupational status: retired Travel in the last 8 weeks: None household members: none housing: apartment lives independently: Yes marital status: single education level: middle school service: No skilled nursing: No current occupational exposures/hazards: No caffeine: Yes do you feel safe at home: Yes victim of physical abuse: No victim of emotional abuse: No victim of sexual abuse: No would you like helpful sources: No [facility] Anesthesia Checklist Patient Identification Patient Identification: Arm Band Structural Data Admitted From: Home Planned Operative Procedure/s: EGD Consent for Planned Operative Procedure(s) Verified: Yes Verified Documents: Surgical Consent and History and Physical NPO Status Verified Time NPO: 00:00 Additional verifications Anesthesia Reactions: No Airway Assessment Mallampati Score:: Class II C-Spine Mobility Assessed: Yes TMJ Mobility Assessed: Yes Dentition: Edentulous Neurological Assessment Level of Consciousness: Awake and Alert Anesthesia Plan Anesthesia Risk discussed: Yes Anesthesia Plan: Verified ASA Class: III Anesthesia Type: MAC
[2023-06-02 12:18] VITALS: O2SAT 99
--- NOTE | 2023-06-02 12:34 | HMH.SCOPE ---
Procedure: Date: 06/02/23 Patient Date of :: 1950 Procedure Performed:: EGD Indications:: The patient is a 72 year old who presents for EGD for dysphagia symptom. The patient presented for EGD in November but had not stopped dual antiplatelet treatments prior to procedure. The patient has been of plavix for 1 week. The patient has had a barium esophagram in October that showed a dilated esophagus with beaking at the distal esophagus. Marked esophageal dysmotility was noted on barium study. Performing Provider:: Edgar Mackey MD Referring Provider:: Hansel Ruff MD Sedation:: See RN records Procedure:: The gastroscope was gently passed through the incisoral orifice into the oral cavity and under direct visualization the esophagus was intubated. The endoscope was passed down the esophagus, through the stomach, and into the duodenum. Color, texture, mucosa, and anatomy of the esophagus, stomach, and duodenum were carefully examined with the scope. Findings:: Oropharynx: normal Esophagus: Narrowing at distal esohagus above GE junction. Tortuosity of the mid to distal esophagus. Empiric dilatation was performed with 18-20 mm tts balloon. EG Junction: mesaured at 35 cm Cardia: normal Fundus: normal Body: normal Antrum: normal Duodenal bulb: normal Duodenum (second and third portion): normal Recommendations:: If dysphagia symptom does not improve after esophageal dilatation. Then will recommend to try to arrange repeat EGD with botox injection for suspected achalasia at the GE junction. Complications:: None Estimated blood obtained (mL): 0 Colonoscopy Component Colonoscopy Component Was a colonoscopy performed during today's procedure?: No
[2023-06-02 12:35] VITALS: BP 119/60; PULSE 75; RESP 16; TEMP 36.6; O2SAT 99
[2023-06-02 12:45] VITALS: BP 118/64; PULSE 76; RESP 16; O2SAT 99
[2023-06-02 12:55] VITALS: BP 134/72; PULSE 72; RESP 14; O2SAT 100
[2023-06-02 13:05] VITALS: BP 131/67; PULSE 73; RESP 16; O2SAT 100
== END 2023-06-02 13:05 | disposition home or self-care (01) ==
PROVIDERS: PCP Internal Medicine; Visit Provider Internal Medicine
PROC: 0DJ08ZZ Inspection of Upper Intestinal Tract, Via Natural or Artificial Opening Endoscopic (ICD-10-PCS; CPT 43235; principal; 2023-06-02 12:00)
DX: K22.4 Dyskinesia of esophagus (principal); K22.89 Other specified disease of esophagus; E11.9 Type 2 diabetes mellitus without complications
CPT/HCPCS: 43249; 82962; C1726

== ENCOUNTER 2023-07-06 13:39 | Emergency (ER) | payer MEDICARE, MEDICAID, SELFPAY ==
[2023-07-06] VITALS (10 sets, daily range): BP systolic 130–183; BP diastolic 66–83; PULSE 65–80; RESP 11–22; TEMP 36.7–36.9; O2SAT 96–100; BMI 27.2
[2023-07-06 14:21] LABS: Microscopic, Urine URINE MICROSCOPIC (MICROSCOPIC)
[2023-07-06 14:22] LABS: Appearance,Urine CLEAR (Clear); Bilirubin,Urine Negative (Negative); Blood, Urine TRACE-I (Negative); Color,Urine YELLOW (Yellow); Glucose,Urine (UA) Negative (Negative); Ketones,Urine Negative (Negative); Leukocyte Esterase,Urine 1+ (Negative); Nitrate,Urine Negative (Negative); PH,Urine 5.5 (5.0-8.5); Protein,Urine Negative (Negative); Specific Gravity, Urine <= 1.005 (1.005-1.030); Urobilinogen,Urine 0.2 EU/dl (0.2)
[2023-07-06 14:54] LABS: Bacteria,Urine Trace /lpf; RBC,Urine Occasional #/hpf (0-3)
--- NOTE | 2023-07-06 15:13 | CT_ITS ---
PROCEDURE INFORMATION: Exam: CT Abdomen And Pelvis With Contrast Exam date and time: 07/06/2023 6:13 PM Age: 72 years old Clinical indication: Abdominal pain; Other: Upper; Additional info: Upper abdominal pain, difficulty having bm TECHNIQUE: Imaging protocol: Computed tomography of the abdomen and pelvis with contrast. Radiation optimization: All CT scans at this facility use at least one of these dose optimization techniques: automated exposure control; mA and/or kV adjustment per patient size (includes targeted exams where dose is matched to clinical indication); or iterative reconstruction. Contrast material: ISOVUE; Contrast volume: 75 ml; Contrast route: IV; REPORTING DATA: Count of CT and Cardiac NM exams in prior 12 months: This patient has received 8 known CTs and 0 known cardiac nuclear medicine studies in the 12 months prior to the current study. COMPARISON: 1. CR XR PELVIS 1-2V 02/27/2023 8:[address] HIP LT WO CON 02/27/2023 9:47 PM 3. CR XR FEMUR LT 2V 02/27/2023 8:48 PM FINDINGS: Lungs: There is a left lower lobe calcified granuloma. There are areas of subpleural reticulation throughout the visualized lungs which are nonspecific. Mediastinal space: There is thickening of the distal esophagus of unclear significance. Liver: There are low-density lesions in the liver, some of which demonstrate internal calcifications and could reflect old trauma or treatment. Gallbladder and bile ducts: Normal. No calcified stones. No ductal dilation. Pancreas: There is fatty replacement of the pancreas. Spleen: The spleen is normal in size and attenuation. No splenic masses or cysts are observed. Adrenal glands: The adrenal glands appear normal. Kidneys and ureters: Both kidneys are of normal size and show uniform attenuation. There are no renal masses, cysts, or calculi. The adrenal glands appear normal. Stomach and bowel: There is large volume stool throughout the colon. Appendix: No evidence of appendicitis. Intraperitoneal space: Unremarkable. No free air. No significant fluid collection. Vasculature: Multiple pelvic phleboliths are present. Lymph nodes: No enlarged or pathological lymph nodes are identified in the abdomen or pelvis. Urinary bladder: Unremarkable as visualized. Reproductive: The patient has undergone prior hysterectomy. Bones/joints: Status post intramedullary venessa and nail fixation of a left femoral neck fracture. Soft tissues: Unremarkable. IMPRESSION: 1. There is asymmetric thickening of the distal esophagus of unclear significance. Consider endoscopy for further evaluation. 2. Otherwise, incidental findings as above.
--- NOTE | 2023-07-06 15:40 | HMH.EDGENADL ---
Discharge Plan Disposition Patient Disposition: Home, Self-Care Condition: Good Prescriptions Prescriptions: New sulfamethoxazole-trimethoprim [Bactrim DS] 800-160 mg tablet 1 tab PO BID 10 Days Qty: 20 0RF No Action lisinopril 20 mg tablet 20 mg PO DAILY Qty: 90 3RF isosorbide mononitrate 30 mg tablet extended release 24 hr 30 mg PO DAILY Qty: 90 3RF atorvastatin 40 mg tablet 40 mg PO DAILY Qty: 90 3RF aspirin 81 mg tablet,chewable 81 mg PO DAILY Qty: 90 3RF venlafaxine 37.5 mg tablet 37.5 mg PO BID metformin 500 mg tablet 500 mg PO BID quetiapine [Seroquel] 50 mg tablet 50 mg PO BID Calcium 600 + D(3) 600 mg calcium- 200 unit capsule 600 cap PO DAILY famotidine 20 mg tablet 20 mg PO DAILY Qty: 180 3RF Rx Instructions: TAKE ONE TABLET BY MOUTH ONCE A DAY acetaminophen [Pain Relief ES (acetaminophen)] 500 mg tablet 500 - 1,000 mg PO Q6HP PRN (Reason: Pain) clopidogrel [Plavix] 75 mg tablet 75 mg PO DAILY metoprolol succinate 50 mg tablet extended release 24 hr 50 mg PO DAILY meclizine 12.5 mg tablet 12.5 mg PO DAILYP PRN (Reason: Dizziness Or Vertigo) sennosides-docusate sodium [Stool Softener-Stimulant Laxat] 8.6-50 mg Tablet 1 tab PO DAILY PRN (Reason: Constipation) Qty: 0 0RF pantoprazole 40 mg Tablet,Delayed Release (Dr/Ec) 40 mg PO HS Qty: 0 0RF diazepam 2 mg tablet 2 mg PO TID PRN (Reason: Anxiety) 30 Days Qty: 90 0RF gabapentin 100 mg capsule 200 mg PO HS 30 Days Qty: 60 0RF nitrofurantoin monohyd/m-cryst [Macrobid] 100 mg capsule 100 mg PO BID 7 Days Qty: 14 0RF Rx Instructions: must administer with a meal/food Referrals Follow up/Referrals: Hansel Ruff MD [Primary Care Provider] - See instructions Activity Restrictions/Add. Instructions Additional Instructions/Restrictions: You were evaluated in the emergency department today. Please follow-up closely with your primary care provider. curb supervisor your prescription for antibiotics and take the full course as prescribed. Continue taking your pantoprazole. You have incidental finding of thickening of your esophagus on the scan, for this I recommend very close follow-up with your primary care provider as you may need referral for endoscopy. Return to the emergency department for new or worsening symptoms. Clinical Impressions Clinical Impression: UTI (urinary tract infection), Esophageal thickening, Chronic upper abdominal pain Instructions Patient Instructions: DI for Urinary Tract Infection (UTI), DI for Acute Abdominal Pain Discharge ED Provider: Glenys Hassan General Adult HPI General Chief complaint: Abdominal Pain Stated complaint: ABD pain for 2 weeks Time Seen by Provider: 07/06/23 15:09 Mode of Arrival: Family Vehicle Source of Information: Patient Limitations: No Limitations Description of Symptoms (Recalled from ER Triage Doc. by RN): Pt c/o mid abd pain that has been present for some time off and on. Per EMS, pain present for several weeks. States she has seen PCP for this issue and he is supposed to be ordering tests for her, none thus far. Pt reports I just need to find out what is going on . Denies any diarrhea. Denies any fever. EMS FS was 112. History of Present Illness HPI narrative: This patient is a 72-year-old female with a history of CAD status post CABG, hypertension, hyperlipidemia, aortic valve replacement, and recent ED evaluation with diagnosis of a urinary tract infection presenting to the emergency department for evaluation with concern for abdominal pain. Patient states that for a while now, meaning several weeks, she has had upper abdominal pain. She states she is also had constipation with difficulty having bowel movements, but her last bowel movement was today. She denies any fevers, chills, nausea, vomiting, dysuria, hematuria, melena, hematochezia, or other concerns. She also denies any ca
[2023-07-06 15:53] LABS: Basophils % 0.4 % (0.1-2.0); Eosinophils % 0.7 % (0.1-12.0); Hematocrit 30.8 % (37.0-47.0); Hemoglobin 10.5 g/dL (12.2-16.2); Lymphocytes # 1.1 K/mm3 (0.7-4.5); Lymphocytes % 20.5 % (10-50); Mean Corpuscular HGB Conc 34.3 g/dL (31.8-35.4); Mean Corpuscular Hemoglobin 33.1 pg (27.0-31.2); Mean Corpuscular Volume 96.6 fl (81-99); Mean Platelet Volume 7.8 fl (7.4-10.4); Monocytes # 0.4 K/mm3 (0.1-1.0); Monocytes % 7.3 % (1.7-9.3); Neutrophils % 71.2 % (37.0-80.0); Platelet Count 207 K/mm3 (142-424); Red Blood Count 3.19 M/mm3 (4.20-5.40); Red Cell Distribution Width 15.5 % (11.5-17.5); White Blood Count 5.6 K/mm3 (4.8-10.8)
--- NOTE | 2023-07-06 16:02 | ECG_ITS ---
APPROVED REPORT Exam: Resting ECG HR:68 bpm ECG Measurements Heart Rate 68 AXES ID 116 P 26 QRSd 171 QRS -53 QT 437 T 99 QTc 454 Conclusion ELECTRONIC VENTRICULAR PACEMAKER ABNORMAL RHYTHM ECG UNCONFIRMED REPORT Electronically signed by : Dvain White MD 07/07/2023 09:01:01
[2023-07-06 16:07] LABS: Chloride 99 mmol/L (98-107); Potassium 5.2 mmoL/L (3.5-5.1); Sodium 134 mmol/L (136-145)
[2023-07-06 16:10] LABS: Alanine Aminotransferase 30 U/L (12-78); Albumin Level 4.6 g/dl (3.5-5.0); Albumin/Globulin Ratio 2.1 (1.1-1.8); Alkaline Phosphatase 84 U/L (38-126); Anion Gap 14.2 mEq/L (5-15); Aspartate Amino Transferase 31 U/L (14-36); Bilirubin,Total 0.4 mg/dl (0.2-1.3); Blood Urea Nitrogen 18 mg/dl (7-17); Carbon Dioxide 26 mmol/L (22.0-30.0); Creatinine Clearance Estimated 48 mL/min (50-200); Estimated Glomerular Filt Rate 70 ml/min (>60); GFR (African American) 85 ML/MIN (>60); Globulin 2.2 g/dL (1.3-3.2); Total Protein,Serum 6.8 g/dl (6.3-8.2)
[2023-07-06 16:11] LABS: Calcium 9.5 mg/dl (8.4-10.2); Glucose 131 mg/dl (74-100)
[2023-07-06 16:38] LABS: Lipase 28 U/L (23-300)
[2023-07-06 16:56] LABS: Troponin I < 0.01 ng/ml (0.00-0.034)
--- NOTE | 2023-07-06 19:32 | PC.NURSE ---
Water has been provided Dr. Hassan has spoke to patient. Attempting to call for a ride for patient.
--- NOTE | 2023-07-06 19:43 | PC.NURSE ---
pt being discharged, waiting on a ride at this time
--- NOTE | 2023-07-06 19:45 | PC.NURSE ---
Patients ride called and stated they are on their way
[2023-07-06 20:06] LABS: Troponin I 0.02 ng/ml (0.00-0.034)
== END 2023-07-06 19:54 | disposition home or self-care (01) ==
PROVIDERS: Student in an Organized Health Care Education/Training Program; Emergency Provider Emergency Medicine; PCP Internal Medicine
DX: N39.0 Urinary tract infection, site not specified (principal); K22.89 Other specified disease of esophagus; R10.10 Upper abdominal pain, unspecified; I25.10 Atherosclerotic heart disease of native coronary artery without angina pectoris; I65.29 Occlusion and stenosis of unspecified carotid artery; I10 Essential (primary) hypertension; E78.5 Hyperlipidemia, unspecified
CPT/HCPCS: 36415; 74177; 80053; 81001; 83690; 84484; 85025; 87086; 93005; 99285; Q9967

== ENCOUNTER 2023-07-21 09:57 | Observation (INO) | payer MEDICARE, OTHER, SELFPAY ==
[2023-07-21] VITALS (11 sets, daily range): BP systolic 110–140; BP diastolic 44–68; PULSE 64–79; RESP 11–18; TEMP 36.6–36.9; O2SAT 94–100; BMI 23.4; BMI 22.8
--- NOTE | 2023-07-21 09:49 | ECG_ITS ---
APPROVED REPORT Exam: Resting ECG HR:72 bpm ECG Measurements Heart Rate 72 AXES AR 145 P 78 QRSd 174 QRS -61 QT 417 T 99 QTc 440 Conclusion ELECTRONIC VENTRICULAR PACEMAKER ABNORMAL RHYTHM ECG UNCONFIRMED REPORT Electronically signed by : Davin White MD 07/22/2023 20:13:21
--- NOTE | 2023-07-21 09:52 | XR_ITS ---
FINAL REPORT CLINICAL HISTORY: chest pain, extensive cards history COMPARISON: 02/27/2023 FINDINGS: A single portable view of the chest was obtained. The heart size and pulmonary vascularity are within normal limits. Prior median sternotomy. Left subclavian pacer is present. There is mild atelectasis or scar in the lung bases. The bony thorax is intact. IMPRESSION: Mild atelectasis or scar in the lung bases. Reviewed, Interpreted and Dictated by Juan Cabrera III, MD Transcribed by Vianney Mack Authenticated and [facility]
--- NOTE | 2023-07-21 09:53 | HMH.EDGENADL ---
Discharge Plan Disposition Patient Disposition: Home, Self-Care Chief Complaint: Chest Pain Prescriptions Prescriptions: No Action lisinopril 20 mg tablet 20 mg PO DAILY Qty: 90 3RF isosorbide mononitrate 30 mg tablet extended release 24 hr 30 mg PO DAILY Qty: 90 3RF atorvastatin 40 mg tablet 40 mg PO DAILY Qty: 90 3RF aspirin 81 mg tablet,chewable 81 mg PO DAILY Qty: 90 3RF venlafaxine 37.5 mg tablet 37.5 mg PO BID metformin 500 mg tablet 500 mg PO BID quetiapine [Seroquel] 50 mg tablet 50 mg PO BID Calcium 600 + D(3) 600 mg calcium- 200 unit capsule 600 cap PO DAILY famotidine 20 mg tablet 20 mg PO DAILY Qty: 180 3RF Rx Instructions: TAKE ONE TABLET BY MOUTH ONCE A DAY acetaminophen [Pain Relief ES (acetaminophen)] 500 mg tablet 500 - 1,000 mg PO Q6HP PRN (Reason: Pain) clopidogrel [Plavix] 75 mg tablet 75 mg PO DAILY metoprolol succinate 50 mg tablet extended release 24 hr 50 mg PO DAILY meclizine 12.5 mg tablet 12.5 mg PO DAILYP PRN (Reason: Dizziness Or Vertigo) sennosides-docusate sodium [Stool Softener-Stimulant Laxat] 8.6-50 mg Tablet 1 tab PO DAILY PRN (Reason: Constipation) Qty: 0 0RF pantoprazole 40 mg Tablet,Delayed Release (Dr/Ec) 40 mg PO HS Qty: 0 0RF diazepam 2 mg tablet 2 mg PO TID PRN (Reason: Anxiety) 30 Days Qty: 90 0RF gabapentin 100 mg capsule 200 mg PO HS 30 Days Qty: 60 0RF nitrofurantoin monohyd/m-cryst [Macrobid] 100 mg capsule 100 mg PO BID 7 Days Qty: 14 0RF Rx Instructions: must administer with a meal/food sulfamethoxazole-trimethoprim [Bactrim DS] 800-160 mg tablet 1 tab PO BID 10 Days Qty: 20 0RF Clinical Impressions Clinical Impression: Acute hyperkalemia, Chest pain Discharge ED Provider: Lennox Conrad General Adult HPI General Chief complaint: Chest Pain Stated complaint: Chest Pain Time Seen by Provider: 07/21/23 09:50 History of Present Illness HPI narrative: 72-year-old female history of high, upper lipidemia, CAD status post stenting, CABG x 2, ordered for placement presenting with chest pain. Patient states that chest pain started around 9 AM today, woke her up from sleep. Was across the precordium from right to left, did not radiate to back, neck, shoulder, or any other areas. Patient was not diaphoretic, nauseous, short of breath, or having any other symptoms. She stated she thought I might as well be seen because of my heart. She is not currently having symptoms on arrival prior to intervention Related Data Home Medications Medication Instructions Recorded Confirmed venlafaxine 37.5 mg tablet 37.5 mg PO BID mood 07/26/17 06/02/23 metformin 500 mg tablet 500 mg PO BID Diabetes 05/13/18 06/02/23 calcium carbonate 600 mg-vitamin 600 cap PO DAILY Supplement 12/13/18 06/02/23 D3 5 mcg (200 unit) capsule (Calcium 600 + D(3)) quetiapine 50 mg tablet (Seroquel) 50 mg PO BID mood 12/13/18 06/02/23 acetaminophen 500 mg tablet (Pain 500 - 1,000 mg PO Q6HP PRN Pain 09/24/22 06/02/23 Relief Extra Strength (acetaminophen)) clopidogrel 75 mg tablet (Plavix) 75 mg PO DAILY antiplatelet 02/27/23 06/02/23 meclizine 12.5 mg tablet 12.5 mg PO DAILYP PRN Dizziness Or 02/28/23 06/02/23 Vertigo metoprolol succinate 50 mg 50 mg PO DAILY heart rate 02/28/23 06/02/23 tablet,extended release 24 hr Previous Rx's Medication Instructions Recorded aspirin 81 mg chewable tablet 81 mg PO DAILY Heart disease #90 09/28/22 tabs atorvastatin 40 mg tablet 40 mg PO DAILY Cholesterol #90 tabs 09/28/22 isosorbide mononitrate 30 mg 30 mg PO DAILY Chest pain #90 tabs 09/28/22 tablet,extended release 24 hr lisinopril 20 mg tablet 20 mg PO DAILY High blood pressure 09/28/22 #90 tabs diazepam 2 mg tablet 2 mg PO TID PRN Anxiety 30 days 03/03/23 #90 tabs gabapentin 100 mg capsule 200 mg PO HS neuropathy 30 days 03/03/23 #60 caps pantoprazole 40 mg tablet,delayed 40 mg PO HS #0 tabs 03/03/23 release sennosides 8.6 mg-docusate sodium 1 tab PO DAILY PRN Constipation #0 03/03/23 50 mg tablet (Stool tabs Softener-Stimulant Laxative) nitrofurantoin 100 mg PO BID 7 days #14 caps 05/22/23 monohydrate/macrocrystals 100 mg capsule (Macrobid) famotidine 20 mg tablet 20 mg PO DAILY GERD #180 tabs 05/27/23 sulfamethoxazole 800 1 tab PO BID 10 days #20 tabs 07/06/23 mg-trimethoprim 160 mg tablet (Bactrim DS) Allergies Allergy/AdvReac Type Severity Reaction Status Date / Time codeine [CODEINE] Allergy Unknown WEAK Verified 06/02/23 11:37 hydrochlorothiazide Allergy Unknown I-RASH Verified 06/02/23 11:37 [HYDROCHLOROTHIAZIDE] hydrocodone [HYDROCODONE] Allergy Unknown I-RASH Verified 06/02/23 11:37 metoclopramide Allergy Unknown SLURRED Verified 06/02/23 11:37 [METOCLOPRAMIDE] SPEECH, WEAK nifedipine [NIFEDIPINE] Allergy Unknown I-HIVES Verified 06/02/23 11:37 prazosin [PRAZOSIN] Allergy Unknown ITCHING/WEA Verified 06/02/23 11:37 K triamterene [TRIAMTERENE] Allergy Unknown I-RASH Verified 06/02/23 11:37 PFSH PFS Disclaimer: The information contained in this section may have been updated after the patient was seen, as this information can be updated by other users. Medical History Carotid artery stenosis Coronary artery disease History of left heart catheterization Surgical History History of permanent cardiac pacemaker placement S/P CABG x 1 Status post aortic valve replacement with bioprosthetic valve Family History Other Family history of cancer Family history of diabetes mellitus type II Family history of hypertension Family history of myocardial infarction Social History Smoking Status: Never smoker second hand exposure: Yes alcohol intake: never substance use type: denies use current occupational status: retired Travel in the last 8 weeks: None household members: none housing: apartment lives independently: Yes marital status: single education level: middle school service: No intermediate: No current occupational exposures/hazards: No caffeine: Yes do you feel safe at home: Yes victim of physical abuse: No victim of emotional abuse: No victim of sexual abuse: No would you like helpful sources: No ROS Obtained: Yes All systems reviewed & no additional complaints except as documented Physical Exam General General appearance: alert and in no apparent distress Head Head exam: atraumatic and normocephalic Eye Eye exam: Present normal appearance, PERRL and EOMI ENT ENT exam: Present mucous membranes moist Neck Neck exam: Present normal inspection, full ROM and trachea midline Chest Chest inspection: Present other (Midline sternotomy scar appears well) Respiratory Respiratory exam: Present normal lung sounds bilaterally; Absent respiratory distress, wheezes, stridor, accessory muscle use or prolonged expiratory phase Cardiovascular Cardiovascular exam: Present regular rate, normal rhythm, systolic murmur, clicks and Pacemaker w/paced rhythm Abdominal Exam Abdominal exam: Present soft; Absent distention, tenderness, guarding, rebound or rigidity Extremities Exam Extremities exam: Absent edema Neurological Exam Neurological exam: Present alert, oriented X3, CN II-XII intact and normal gait; Absent motor sensory deficit Skin Skin exam: Present warm and dry; Absent diaphoresis or erythema Medical Decision Making Medical Records Medical records reviewed: Yes I reviewed the patient's medical records. Chet Inquiry Pt receiving controlled substance: No Chet was queried for this patient: No Vital Signs: 07/21/23 09:57 07/21/23 10:06 07/21/23 10:59 Temperature 98.1 F Temperature Source Oral Pulse Rate 67 69 Pulse Rate [Left Radial] 73 Respiratory Rate 15 11 L 13 Blood Pressure 119/57 L 137/57 L Blood Pressure [Right Arm] 140/68 Blood Pressure Mean 83 83 Blood Pressure Mean [Right Arm] 92 02 Sat by Pulse Oximetry 94 L 98 99 Oxygen Delivery Method Room Air 07/21/23 11:31 Temperature Temperature Source Pulse Rate 64 Pulse Rate [Left Radial] Respiratory Rate 13 Blood Pressure 114/44 L Blood Pressure [Right Arm] Blood Pressure Mean Blood Pressure Mean [Right Arm] 02 Sat by Pulse Oximetry 100 Oxygen Delivery Method Lab Data Lab Results 07/21/23 10:40: WBC 4.6 L, RBC 3.40 L, Hgb 11.1 L, Hct 34.3 L, MCV 101.0 H, MCH 32.5 H, MCHC 32.2, RDW 15.2, Plt Count 243, MPV 8.3, Neut % (Auto) 73.0, Lymph % (Auto) 21.0, [place] % (Auto) 5.2, Eos % (Auto) 0.3, Baso % (Auto) 0.4, Neut # (Auto) 3.4, Lymph # (Auto) 1.0, [place] # (Auto) 0.2, Eos # (Auto) 0.0, Baso # (Auto) 0.0, Sodium 128 L, Potassium 7.1 H*, Chloride 101, Carbon Dioxide 20 L, Anion Gap 14.1, BUN 36 H, Creatinine 1.40 H, Estimated Creat Clear 30, Estimated GFR 37 L, Est GFR ( Amer) 44 L, Glucose 115 H, Calcium 10.0, Total Bilirubin 0.5, AST 27, ALT 25, Alkaline Phosphatase 81, Troponin I < 0.01, NT-Pro-B Natriuret Pep 698 H, Total Protein 7.5, Albumin 5.0, Globulin 2.5, Albumin/Globulin Ratio 2.0 H 07/21/23 12:30: Sodium 128 L, Potassium 7.6 H*, Chloride 102, Carbon Dioxide 19 L, Anion Gap 14.6, BUN 37 H, Creatinine 1.30 H, Estimated Creat Clear 33, Estimated GFR 40 L, Est GFR ( Amer) 48 L, Glucose 96, Calcium 9.4, Troponin I 0.02 07/21/23 10:40 07/21/23 12:30 Orders (Tests/Meds): ED MEDICATIONS Generic Name Dose Route Start Last Admin Trade Name Freq PRN Reason Stop Dose Admin Sodium Chloride 1,000 mls @ 999 mls/hr 07/21/23 13:01 07/21/23 13:23 Sod Chlor 0.9% 1000ml Bag IV 07/21/23 14:01 999 mls/hr .Q1H1M ONE Administration Discontinued Medications Generic Name Dose Route Start Last Admin Trade Name Freq PRN Reason Stop Dose Admin Aspirin 324 mg 07/21/23 09:52 07/21/23 10:04 Aspirin 81mg Chewable Tablet PO 07/21/23 09:53 324 mg ONCE ONE Administration Dextrose 50 ml 07/21/23 13:01 07/21/23 13:23 Dextrose 50% 50ml Syringe (Crash Cart) IV 07/21/23 13:02 50 ml ONCE ONE Administration Furosemide 40 mg 07/21/23 13:01 07/21/23 13:23 Furosemide 40mg/4ml Vial IV 07/21/23 13:02 40 mg ONCE ONE Administration Insulin Human Regular 5 unit 07/21/23 13:01 07/21/23 13:23 Insulin Human Regular 100 Units/Ml 10ml Vial IV 07/21/23 13:02 5 unit ONCE ONE Administration Sodium Zirconium Cyclosilicate 10 gm 07/21/23 13:01 07/21/23 13:23 Lokelma 5gm Packet PO 07/21/23 13:02 10 gm ONCE ONE Administration ORDERS Category Date Time Status XR chest portable Stat Exams 07/21/23 09:52 Completed BMP [Basic Metabolic Panel] Stat Lab 07/21/23 12:30 Completed Basic Metabolic Panel Routine Lab 07/21/23 18:00 Ordered Brain Natriuretic Peptide Stat Lab 07/21/23 10:40 Completed Complete Blood Count Auto Diff AMLAB Lab 07/22/23 06:00 Ordered Complete Blood Count Auto Diff Stat Lab 07/21/23 10:40 Completed Comprehensive Metabolic Panel AMLAB Lab 07/22/23 06:00 Ordered Comprehensive Metabolic Panel Stat Lab 07/21/23 10:40 Completed Magnesium AMLAB Lab 07/22/23 06:00 Ordered Troponin I Q3H Lab 07/21/23 12:30 Completed Troponin I Q3H Lab 07/21/23 16:00 Ordered Troponin I Stat Lab 07/21/23 10:40 Completed HEART Score History (anamnesis): Moderately suspicious ECG: Normal Age: >65 years Risk factors: 3 or more risk factors Troponin: </= normal limit HEART Score: 5 Medical Decision Narrative: 72-year-old female history of high, upper lipidemia, CAD status post stenting, CABG x 2, ordered for placement presenting with chest pain. Patient states that chest pain started around 9 AM today, woke her up from sleep. Was across the precordium from right to left, did not radiate to back, neck, shoulder, or any other areas. Patient was not diaphoretic, nauseous, short of breath, or having any other symptoms. She stated she thought I might as well be seen because of my heart. She is not currently having symptoms on arrival prior to interventio. History was obtained via conversation with patient, EMS. On arrival, patient hemodynamically stable, alert, oriented x4, appropriate, GCS 15, moving all extremities spontaneously, pupils equal and reactive to light. Full physical exam performed and significant for chronically ill-appearing woman in no acute distress. Midline sternotomy scar well-healed and normal. Lungs clear to auscultation bilaterally. Pulses equal and symmetric. Patient does have right upper sternal border click and murmur with systole that radiates to the carotids. No abdominal tenderness. No lower extremity edema. Differential includes ACS, OH, pneumothorax, PE, dissection, pneumothorax, aortic aneurysm, pneumonia, bronchitis, among others. Patient was given 324 mg aspirin for symptomatic management and correction of underlying abnormalities. Workup independently interpreted and significant for hyperkalemia 7.1, repeat 7.6. Hyponatremia 128. MAX with creatinine 1.3. Likely representing MAX induced hyperkalemia. Troponin negative. Patient was given hyperkalemic protocol. Chest x-ray nonacute. See radiology read for full review of final results. Independent interpretation of EKG shows ventricularly paced rhythm 72 beats a minute with no ST or T wave changes concerning for acute ischemia. Sgarbossa negative. Wide QRS, but QT interval within normal limits. Normal axis Heart score 5. Patient was placed in observation beginning at 10 AM in order to rule out OH with serial troponins and determine need for admission versus home-going. The patient was provided cardiac monitoring while awaiting results. Independent interpretation of results demonstrated significant hyperkalemia with normal delta troponin. On reevaluation, patient tolerating p.o. intake without issue, urinating. Medications for hyperkalemia were given including insulin, dextrose, Lokelma, Lasix. At this time, I feel patient is appropriate for admission. Total observation time 3.5 hours. Hospital medicine contacted and interactive discussion was had, see note for recommendations. Critical Care Critical Care Time Critical Care Time: Yes (metabolic) Attestation: On 07/21/23, the high probability of a clinically significant, sudden or life threatening deterioration of the following system(s) required my full and direct attention, intervention and personal management. The time I documented below is in addition to time spent performing reported procedures but includes the following listed in this critical care notation. Total Time Total Critical Care Time: 35
[2023-07-21] MEDS: ASPIRIN 81MG CHEWABLE TABLET 324 MG PO (10:04)
[2023-07-21 10:51] LABS: Basophils % 0.4 % (0.1-2.0); Eosinophils % 0.3 % (0.1-12.0); Hematocrit 34.3 % (37.0-47.0); Hemoglobin 11.1 g/dL (12.2-16.2); Mean Corpuscular HGB Conc 32.2 g/dL (31.8-35.4); Mean Corpuscular Hemoglobin 32.5 pg (27.0-31.2); Mean Platelet Volume 8.3 fl (7.4-10.4); Monocytes # 0.2 K/mm3 (0.1-1.0); Monocytes % 5.2 % (1.7-9.3); Neutrophils # 3.4 K/mm3 (1.8-7.8); Platelet Count 243 K/mm3 (142-424); Red Cell Distribution Width 15.2 % (11.5-17.5); White Blood Count 4.6 K/mm3 (4.8-10.8)
[2023-07-21 11:00] LABS: Alanine Aminotransferase 25 U/L (12-78); Alkaline Phosphatase 81 U/L (38-126); Anion Gap 14.1 mEq/L (5-15); Aspartate Amino Transferase 27 U/L (14-36); Bilirubin,Total 0.5 mg/dl (0.2-1.3); Blood Urea Nitrogen 36 mg/dl (7-17); Carbon Dioxide 20 mmol/L (22.0-30.0); Chloride 101 mmol/L (98-107); Creatinine Clearance Estimated 30 mL/min (50-200); Estimated Glomerular Filt Rate 37 ml/min (>60); GFR (African American) 44 ML/MIN (>60); Globulin 2.5 g/dL (1.3-3.2); Glucose 115 mg/dl (74-100); Sodium 128 mmol/L (136-145); Total Protein,Serum 7.5 g/dl (6.3-8.2)
[2023-07-21 11:12] LABS: NT Pro Brain Natriuretic Pep. 698 pg/mL (0-125)
[2023-07-21 11:27] LABS: Troponin I < 0.01 ng/ml (0.00-0.034)
--- NOTE | 2023-07-21 11:28 | PC.NURSE ---
critical lab received from melquiades in lab K+ 7.1. r/v pt name and . dr beaver notified. requests repeat bmp
[2023-07-21 11:29] LABS: Potassium 7.1 mmoL/L (3.5-5.1)
--- NOTE | 2023-07-21 11:41 | PC.NURSE ---
lab at bedside to collect repeat bmp
--- NOTE | 2023-07-21 12:31 | PC.NURSE ---
BLOOD SENT TO LAB
[2023-07-21 12:50] LABS: Chloride 102 mmol/L (98-107)
[2023-07-21 12:51] LABS: Sodium 128 mmol/L (136-145)
[2023-07-21 12:53] LABS: Blood Urea Nitrogen 37 mg/dl (7-17); Creatinine Clearance Estimated 33 mL/min (50-200); Estimated Glomerular Filt Rate 40 ml/min (>60); GFR (African American) 48 ML/MIN (>60)
[2023-07-21 12:54] LABS: Anion Gap 14.6 mEq/L (5-15); Calcium 9.4 mg/dl (8.4-10.2); Carbon Dioxide 19 mmol/L (22.0-30.0); Glucose 96 mg/dl (74-100)
[2023-07-21 12:57] LABS: Potassium 7.6 mmoL/L (3.5-5.1)
[2023-07-21 13:07] LABS: Troponin I 0.02 ng/ml (0.00-0.034)
[2023-07-21] MEDS: INSULIN HUMAN REGULAR 100 UNITS/ML 10ML VIAL 5 UNIT IV (13:23)
[2023-07-21] MEDS: FUROSEMIDE 40MG/4ML VIAL 40 MG IV (13:23)
[2023-07-21] MEDS: LOKELMA 5GM PACKET 10 GM PO (13:23)
[2023-07-21] MEDS: DEXTROSE 50% 50ML SYRINGE (CRASH CART) 50 ML IV (13:23)
[2023-07-21] MEDS: 0.9 % SODIUM CHLORIDE 1000ML 1,000 ML 999 ML IV (13:23)
--- NOTE | 2023-07-21 13:27 | PC.NURSE ---
call made to care management for bed placement
--- NOTE | 2023-07-21 13:30 | EXP.HP ---
History of Present Illness *Admission Date: 07/21/23 *Reason for visit:: chest pain *History of present illness: Ms. Oconnor is a 72-year-old female with history of prosthetic aortic valve, hypertension, hyperlipidemia, anxiety. She presented to the ER because of onset of chest discomfort today that scared her. States she woke up around 9 AM with pain that woke her from sleep. Denies radiation to her neck or arm. Denies diaphoresis, shortness of breath, nausea or vomiting. Thought that she should come in because she wanted to evaluate her heart. Symptoms resolved by the time of presenting to the ER. Workup in the ER concerning for elevated potassium and MAX. Potassium in the mid sevens. Given her severe hyperkalemia, EKG obtained showing no peaked T waves. Medicine was consulted for admission and further treatment. Received Lasix, insulin and dextrose, and a dose of Lokelma in the ER. Upon arrival to the floor, patient is on telemetry. Status post 1 L of IV fluids in the ER. Denies any significant symptoms at this time. Stable on room air. Alert and oriented. Of note, history also includes CABG x 2 and history of coronary artery stents. Review of recent visits to the ER shows UTI treated on 07/07 with 10-day course of Bactrim. Just finished antibiotics yesterday. [facility] Disclaimer: The information contained in this section may have been updated after the patient was seen, as this information can be updated by other users. Medical History Carotid artery stenosis Coronary artery disease History of left heart catheterization Surgical History History of permanent cardiac pacemaker placement S/P CABG x 1 Status post aortic valve replacement with bioprosthetic valve Family History Family history of cancer Family history of hypertension Family history of diabetes mellitus type II Family history of myocardial infarction Social History Smoking Status: Never smoker second hand exposure: Yes alcohol intake: never substance use type: denies use current occupational status: retired Travel in the last 8 weeks: None household members: none housing: apartment lives independently: Yes marital status: single education level: middle school service: No custodial: No current occupational exposures/hazards: No caffeine: Yes do you feel safe at home: Yes victim of physical abuse: No victim of emotional abuse: No victim of sexual abuse: No would you like helpful sources: No Review of Systems Review of Systems Review of systems (narrative): 14 point review of systems performed, pertinent positives and negatives as per [facility] Meds Home Medications and Allergies Home Medications Medication Instructions Recorded Confirmed Type venlafaxine 37.5 mg tablet 37.5 mg PO BID mood 07/26/17 07/21/23 History metformin 500 mg tablet 500 mg PO BID 05/13/18 07/21/23 History quetiapine 50 mg tablet (Seroquel) 50 mg PO HS 12/13/18 07/21/23 History acetaminophen 500 mg tablet (Pain 500 - 1,000 mg PO Q6HP PRN Pain 09/24/22 07/21/23 History Relief Extra Strength (acetaminophen)) clopidogrel 75 mg tablet (Plavix) 75 mg PO DAILY 02/27/23 07/21/23 History meclizine 12.5 mg tablet 12.5 mg PO DAILYP PRN Dizziness Or 02/28/23 07/21/23 History Vertigo metoprolol succinate 50 mg 50 mg PO DAILY 02/28/23 07/21/23 History tablet,extended release 24 hr diazepam 2 mg tablet 2 mg PO TID PRN Anxiety 30 days 03/03/23 07/21/23 Rx #90 tabs sennosides 8.6 mg-docusate sodium 1 tab PO DAILY PRN Constipation #0 03/03/23 07/21/23 Rx 50 mg tablet (Stool tabs Softener-Stimulant Laxative) alendronate 70 mg tablet 70 mg PO WEEKLY 07/21/23 07/21/23 History aspirin 81 mg chewable tablet 81 mg PO DAILY 07/21/23 07/21/23 History atorvastatin 40 mg tablet 40 mg PO DAILY 07/21/23 07/21/23 History calcium carbonate 500 mg-vitamin 1 tab PO BID 07/21/23 07/21/23 History D3 2.5 mcg (100 unit) chewable tablet cholecalciferol (vitamin D3) 50 2,000 unit PO DAILY 07/21/23 07/21/23 History mcg (2,000 unit) tablet famotidine 20 mg tablet 20 mg PO DAILY 07/21/23 07/21/23 History gabapentin 100 mg capsule 200 mg PO HS 07/21/23 07/21/23 History isosorbide mononitrate 30 mg 30 mg PO DAILY 07/21/23 07/21/23 History tablet,extended release 24 hr lisinopril 20 mg tablet 20 mg PO DAILY 07/21/23 07/21/23 History omeprazole 20 mg capsule,delayed 20 mg PO DAILY 07/21/23 07/21/23 History release New Prescriptions to Start Prescriptions: Allergies Allergy/AdvReac Type Severity Reaction Status Date / Time codeine [CODEINE] Allergy Unknown WEAK Verified 07/21/23 13:54 hydrochlorothiazide Allergy Unknown I-RASH Verified 07/21/23 13:54 [HYDROCHLOROTHIAZIDE] hydrocodone [HYDROCODONE] Allergy Unknown I-RASH Verified 07/21/23 13:54 metoclopramide Allergy Unknown SLURRED Verified 07/21/23 13:54 [METOCLOPRAMIDE] SPEECH, WEAK nifedipine [NIFEDIPINE] Allergy Unknown I-HIVES Verified 07/21/23 13:54 prazosin [PRAZOSIN] Allergy Unknown ITCHING/WEA Verified 07/21/23 13:54 K triamterene [TRIAMTERENE] Allergy Unknown I-RASH Verified 07/21/23 13:54 Exam Data for Last 24 hours Vital signs and Labs for Last 24 Hours: Temp Pulse Resp BP Pulse Ox O2 Del Method 98.1 F 64 13 114/44 L 100 Room Air 07/21/23 09:57 07/21/23 11:31 07/21/23 11:31 07/21/23 11:31 07/21/23 11:31 07/21/23 09:57 Laboratory Results - last 24 hr 07/21/23 10:40: WBC 4.6 L, RBC 3.40 L, Hgb 11.1 L, Hct 34.3 L, MCV 101.0 H, MCH 32.5 H, MCHC 32.2, RDW 15.2, Plt Count 243, MPV 8.3, Neut % (Auto) 73.0, Lymph % (Auto) 21.0, [place] % (Auto) 5.2, Eos % (Auto) 0.3, Baso % (Auto) 0.4, Neut # (Auto) 3.4, Lymph # (Auto) 1.0, [place] # (Auto) 0.2, Eos # (Auto) 0.0, Baso # (Auto) 0.0, Sodium 128 L, Potassium 7.1 H*, Chloride 101, Carbon Dioxide 20 L, Anion Gap 14.1, BUN 36 H, Creatinine 1.40 H, Estimated Creat Clear 30, Estimated GFR 37 L, Est GFR ( Amer) 44 L, Glucose 115 H, Calcium 10.0, Total Bilirubin 0.5, AST 27, ALT 25, Alkaline Phosphatase 81, Troponin I < 0.01, NT-Pro-B Natriuret Pep 698 H, Total Protein 7.5, Albumin 5.0, Globulin 2.5, Albumin/Globulin Ratio 2.0 H 07/21/23 12:30: Sodium 128 L, Potassium 7.6 H*, Chloride 102, Carbon Dioxide 19 L, Anion Gap 14.6, BUN 37 H, Creatinine 1.30 H, Estimated Creat Clear 33, Estimated GFR 40 L, Est GFR ( Amer) 48 L, Glucose 96, Calcium 9.4, Troponin I 0.02 I & O for Last 24 hours: Intake & Output 07/18/23 07/19/23 07/20/23 07/21/23 23:59 23:59 23:59 23:59 Weight 54.431 kg Constitutional Constitutional: no acute distress, average body habitus, chronically ill appearing and cooperative *Routine HEENT Exam Head: Present normocephalic Eye: Present EOMI ENT: Present mucous membranes dry *Routine Neck Exam Neck: Present full ROM *Routine Respiratory Exam Respiratory: Present CTA bilaterally; Absent rhonchi, wheezes or crackles *Routine Cardiovascular Exam Cardiovascular: Present RRR *Routine Abdominal Exam Abdominal: Present soft and normoactive bowel sounds; Absent tenderness *Routine Rectal Exam Rectal:: deferred *Routine Genitalia Exam Genitalia:: deferred *Routine Extremities Exam Extremities: Present pulses intact, normal capillary refill and joint swelling; Absent full ROM Comments: left elbow swelling. left foot shorted and rotated *Routine Skin Exam Skin: Present pallor *Routine Neurological Exam Neurological: Present alert, oriented X3 and moving all extremities; Absent altered mental status Assessment and Plan *Assessment and plan (1) Acute hyperkalemia: Status: Acute Category: Medical Code(s): E87.5 - Hyperkalemia (2) Chest pain: Status: Acute Category: Medical Code(s): R07.9 - Chest pain, unspecified (3) History of mechanical aortic valve replacement: Status: Chronic Category: Surgical Code(s): Z98.890 - Other specified postprocedural states; Z95.2 - Presence of prosthetic heart valve (4) Hypertension: Status: Chronic Qualifiers: Hypertension type: essential hypertension Qualified Code(s): I10 - Essential (primary) hypertension Category: Medical Code(s): I10 - Essential (primary) hypertension (5) S/P CABG x 1: Problem Comment: CABGx1 SVG from ascending aorta to the LAD 03/28/18 Status: Chronic Category: Surgical Code(s): Z95.1 - Presence of aortocoronary bypass graft (6) Status post aortic valve replacement with bioprosthetic valve: Problem Comment: 03/28/2018 Sekela Yanez Intuity rapid deployed valve. Status: Chronic Category: Surgical Code(s): Z95.3 - Presence of xenogenic heart valve (7) MAX (acute kidney injury): Status: Acute Category: Medical Code(s): N17.9 - Acute kidney failure, unspecified Plan 72-year-old female with complex cardiac history. Presented with onset of chest pain. Troponin unremarkable but found to have elevated potassium. ER consulted medicine for admission to further treat hyperkalemia, monitor overnight on telemetry, and eval for resolution. Medicine agreed to admit. Problems addressed as follows: MAX Hyperkalemia - Baseline creatinine 0.8. Increased to 1.3 on presentation. BUN elevated at 37. Given presence of MAX and hyperkalemia, suspect secondary to Bactrim from recent treatment for UTI in conjunction with her lisinopril. Has finished course of antibiotics. - gentle IV hydration. Repeat labs this afternoon and CMP ordered for the morning. Monitor for improvement with medical management of hyperkalemia. -Continuous telemetry -Status post Lokelma, dextrose and insulin, Lasix. Will consider repeat dose of Lokelma if potassium remains above 6 -Holding lisinopril in setting of MAX Hypertension CAD -Can continue for an 81 mg daily, Lipitor 40 [place] daily, Plavix 70 g, isosorbide mononitrate 30 mg daily, metoprolol 50 mg daily Anxiety Sleep disorder -Continue Valium 2 Lee 3 times as needed, gabapentin 200 mg HS, Seroquel 50 mg nightly, Effexor 37.5 mg twice daily DM -Holding metformin 500 mg twice daily in the setting of MAX. -Fingersticks ACHS, sliding scale insulin. Full code cardiac diet
--- NOTE | 2023-07-21 14:05 | PC.NURSE ---
report called to karlee on second floor
--- NOTE | 2023-07-21 14:15 | PC.NURSE ---
arrived by w/c from ED
--- NOTE | 2023-07-21 15:18 | HMH.PHAINT1 ---
Pharmacy Intervention Comments: Home med list verified with patient at bedside and with external pharmacy list.
[2023-07-21] MEDS: LACTATED RINGERS 1000ML 1,000 ML 100 ML IV (16:39)
[2023-07-21 17:11] LABS: Troponin I 0.03 ng/ml (0.00-0.034)
--- NOTE | 2023-07-21 17:43 | PC.NURSE ---
A&OX4. TOLERATING RA WELL. UP TO BATHROOM WITH USE OF CANE AND STANDBY ASSIST. PT HAS HAD NO C/O CP SINCE ARRIVAL TO FLOOR. PT DID HAVE SOME TROUBLE EATING HER CHICKEN FOR SUPPER. STATES SHE SOMETIMES HAS TROUBLE SWALLOWING. AT HOME, SHE EATS SOFT FOODS AND SANDWICHES. PT ABLE TO DRINK, AND TOLERATED CHICKEN SALAD SANDWICH ALONG WITH PUDDING AND APPLESAUCE. NO COUGHING OR VOMITING NOTED. WILL PUT IN ORDER FOR SOFT DIET. NO OTHER NEEDS OR C/O NOTED AT THIS TIME, PT RESTING COMFORTABLY IN BED. VSS.
[2023-07-21 18:19] LABS: Chloride 101 mmol/L (98-107); Potassium 4.9 mmoL/L (3.5-5.1); Sodium 133 mmol/L (136-145)
[2023-07-21 18:22] LABS: Anion Gap 21.9 mEq/L (5-15); Blood Urea Nitrogen 34 mg/dl (7-17); Calcium 9.5 mg/dl (8.4-10.2); Carbon Dioxide 15 mmol/L (22.0-30.0); Creatinine Clearance Estimated 32 mL/min (50-200); Estimated Glomerular Filt Rate 40 ml/min (>60); GFR (African American) 48 ML/MIN (>60); Glucose 121 mg/dl (74-100)
[2023-07-21] MEDS: GABAPENTIN 100MG CAPSULE 200 MG PO (21:35)
[2023-07-21] MEDS: humaLOG 100 UNITS/ML 3ML VIAL (SSI) SQ (21:36)
[2023-07-21] MEDS: PANTOPRAZOLE 40MG TABLET 40 MG PO (21:36)
[2023-07-21] MEDS: QUETIAPINE 25MG TABLET 50 MG PO (21:36)
[2023-07-21] MEDS: VENLAFAXINE 37.5MG TABLET 37.5 MG PO (21:36)
[2023-07-22] VITALS: BP 83/40; PULSE 70; PULSE 76; RESP 17; TEMP 36.8; O2SAT 97
[2023-07-22 01:00] VITALS: BP 92/50
[2023-07-22 04:00] VITALS: BP 91/42; PULSE 66; PULSE 67; RESP 17; TEMP 36.9; O2SAT 98; BMI 23.9
[2023-07-22 05:58] LABS: POC Glucose,Bedside 94 (70-110)
[2023-07-22 07:20] LABS: Basophils % 0.3 % (0.1-2.0); Hematocrit 27.6 % (37.0-47.0); Lymphocytes # 1.8 K/mm3 (0.7-4.5); Lymphocytes % 45.8 % (10-50); Mean Corpuscular HGB Conc 32.8 g/dL (31.8-35.4); Mean Corpuscular Hemoglobin 32.6 pg (27.0-31.2); Mean Corpuscular Volume 99.4 fl (81-99); Mean Platelet Volume 8.2 fl (7.4-10.4); Monocytes # 0.3 K/mm3 (0.1-1.0); Monocytes % 6.8 % (1.7-9.3); Neutrophils # 1.8 K/mm3 (1.8-7.8); Neutrophils % 46.2 % (37.0-80.0); Platelet Count 193 K/mm3 (142-424); Red Blood Count 2.78 M/mm3 (4.20-5.40); Red Cell Distribution Width 15.4 % (11.5-17.5); White Blood Count 3.9 K/mm3 (4.8-10.8)
[2023-07-22 07:22] LABS: Alanine Aminotransferase 20 U/L (12-78); Albumin Level 3.8 g/dl (3.5-5.0); Albumin/Globulin Ratio 1.9 (1.1-1.8); Alkaline Phosphatase 61 U/L (38-126); Anion Gap 11.5 mEq/L (5-15); Aspartate Amino Transferase 22 U/L (14-36); Bilirubin,Total 0.3 mg/dl (0.2-1.3); Blood Urea Nitrogen 33 mg/dl (7-17); Calcium 9.1 mg/dl (8.4-10.2); Carbon Dioxide 22 mmol/L (22.0-30.0); Chloride 103 mmol/L (98-107); Creatinine Clearance Estimated 36 mL/min (50-200); Estimated Glomerular Filt Rate 44 ml/min (>60); GFR (African American) 53 ML/MIN (>60); Glucose 86 mg/dl (74-100); Potassium 5.5 mmoL/L (3.5-5.1); Sodium 131 mmol/L (136-145); Total Protein,Serum 5.8 g/dl (6.3-8.2)
[2023-07-22 07:45] VITALS: O2SAT 100
[2023-07-22 08:00] VITALS: BP 132/69; PULSE 70; RESP 18; TEMP 36.8; O2SAT 100
--- NOTE | 2023-07-22 08:23 | P.DS_ITS ---
General Admission date:: 07/21/23 Discharge date: 07/22/23 HPI HPI HPI: Ms. Oconnor is a 72-year-old female with history of prosthetic aortic valve, hypertension, hyperlipidemia, anxiety. She presented to the ER because of onset of chest discomfort today that scared her. States she woke up around 9 AM with pain that woke her from sleep. Denies radiation to her neck or arm. Denies diaphoresis, shortness of breath, nausea or vomiting. Thought that she should come in because she wanted to evaluate her heart. Symptoms resolved by the time of presenting to the ER. Workup in the ER concerning for elevated potassium and MAX. Potassium in the mid sevens. Given her severe hyperkalemia, EKG obtained showing no peaked T waves. Medicine was consulted for admission and further treatment. Received Lasix, insulin and dextrose, and a dose of Lokelma in the ER. Upon arrival to the floor, patient is on telemetry. Status post 1 L of IV fluids in the ER. Denies any significant symptoms at this time. Stable on room air. Alert and oriented. Of note, history also includes CABG x 2 and history of coronary artery stents. Review of recent visits to the ER shows UTI treated on 07/07 with 10-day course of Bactrim. Just finished antibiotics yesterday. Hospital Course Hospital Course Hospital Course: 72-year-old female with complex cardiac history. Presented with onset of chest pain. Troponin unremarkable but found to have elevated potassium. ER consulted medicine for admission to further treat hyperkalemia, monitor overnight on telemetry, and eval for resolution. Medicine agreed to admit. Problems addressed as follows: MAX Hyperkalemia - Baseline creatinine 0.8. Stable today at 1.2. Anticipate gradual improvement with completion of Bactrim and holding of lisinopril. BUN 33. Hyperkalemia elevated in the mid sevens on admission. EKG with no changes. Was treated medically with Lokelma, dextrose and insulin, Lasix. Potassium improved to 4.4 by the evening labs. Stable at 5.5 morning of discharge. Patient had no events on telemetry. Recommend continuing to hold her lisinopril at discharge until follows up with PCP. Repeat labs ordered for 2 days Hypertension CAD -Can continue for an 81 mg daily, Lipitor 40 [place] daily, Plavix 70 g, isosorbide mononitrate 30 mg daily, metoprolol 50 mg daily Anxiety Sleep disorder -Continue Valium 2 mg 3 times as needed, gabapentin 200 mg HS, Seroquel 50 mg nightly, Effexor 37.5 mg twice daily DM -Holding metformin 500 mg twice daily in the setting of MAX. -Fingersticks ACHS, sliding scale insulin. Stable for discharge home. Close follow-up with PCP and repeat labs as ordered. Exam Data for Last 24 hours Vital signs and Labs for Last 24 Hours: Temp Pulse Resp BP Pulse Ox O2 Del Method 98.2 F 70 18 132/69 100 Room Air 07/22/23 08:00 07/22/23 08:00 07/22/23 08:00 07/22/23 08:00 07/22/23 08:00 07/22/23 08:00 Laboratory Results - last 24 hr 07/21/23 10:40: WBC 4.6 L, RBC 3.40 L, Hgb 11.1 L, Hct 34.3 L, MCV 101.0 H, MCH 32.5 H, MCHC 32.2, RDW 15.2, Plt Count 243, MPV 8.3, Neut % (Auto) 73.0, Lymph % (Auto) 21.0, [place] % (Auto) 5.2, Eos % (Auto) 0.3, Baso % (Auto) 0.4, Neut # (Auto) 3.4, Lymph # (Auto) 1.0, [place] # (Auto) 0.2, Eos # (Auto) 0.0, Baso # (Auto) 0.0, Sodium 128 L, Potassium 7.1 H*, Chloride 101, Carbon Dioxide 20 L, Anion Gap 14.1, BUN 36 H, Creatinine 1.40 H, Estimated Creat Clear 30, Estimated GFR 37 L, Est GFR ( Amer) 44 L, Glucose 115 H, Calcium 10.0, Total Bilirubin 0.5, AST 27, ALT 25, Alkaline Phosphatase 81, Troponin I < 0.01, NT-Pro-B Natriuret Pep 698 H, Total Protein 7.5, Albumin 5.0, Globulin 2.5, Albumin/Globulin Ratio 2.0 H 07/21/23 12:30: Sodium 128 L, Potassium 7.6 H*, Chloride 102, Carbon Dioxide 19 L, Anion Gap 14.6, BUN 37 H, Creatinine 1.30 H, Estimated Creat Clear 33, Estima dulce GFR 40 L, Est GFR ( Amer) 48 L, Glucose 96, Calcium 9.4, Troponin I 0.02 07/21/23 16:27: Troponin I 0.03 07/21/23 18:00: Sodium 133 L, Potassium 4.9 D, Chloride 101, Carbon Dioxide 15 L, Anion Gap 21.9 H, BUN 34 H, Creatinine 1.30 H, Estimated Creat Clear 32, Estimated GFR 40 L, Est GFR ( Amer) 48 L, Glucose 121 H D, Calcium 9.5 07/22/23 05:24: WBC 3.9 L, RBC 2.78 L, Hgb 9.0 L D, Hct 27.6 L, MCV 99.4 H, MCH 32.6 H, MCHC 32.8, RDW 15.4, Plt Count 193, MPV 8.2, Neut % (Auto) 46.2, Lymph % (Auto) 45.8, [place] % (Auto) 6.8, Eos % (Auto) 1.0, Baso % (Auto) 0.3, Neut # (Auto) 1.8, Lymph # (Auto) 1.8, [place] # (Auto) 0.3, Eos # (Auto) 0.0, Baso # (Auto) 0.0, Sodium 131 L, Potassium 5.5 H, Chloride 103, Carbon Dioxide 22, Anion Gap 11.5, BUN 33 H, Creatinine 1.20 H, Estimated Creat Clear 36, Estimated GFR 44 L, Est GFR ( Amer) 53 L, Glucose 86 D, Calcium 9.1, Magnesium 2.0, Total Bilirubin 0.3, AST 22, ALT 20, Alkaline Phosphatase 61, Total Protein 5.8 L, Albumin 3.8 D, Globulin 2.0, Albumin/Globulin Ratio 1.9 H 07/22/23 05:51: POC Glucose 94 I & O for Last 24 hours: Intake & Output 07/19/23 07/20/23 07/21/23 07/22/23 23:59 23:59 23:59 23:59 Intake Total 240 / 240 1360 / 1360 Output Total 0 / 0 0 / 0 Balance 240 / 240 1360 / 1360 Weight 53.07 kg 55.293 kg Constitutional Constitutional: no acute distress, average body habitus, chronically ill appearing and cooperative *Routine HEENT Exam Head: Present normocephalic Eye: Present EOMI and PERRL ENT: Present mucous membranes moist *Routine Neck Exam Neck: Present supple; Absent lymphadenopathy *Routine Respiratory Exam Respiratory: Present CTA bilaterally, crackles and normal respiratory effort; Absent accessory muscle use, rhonchi or wheezes *Routine Cardiovascular Exam Cardiovascular: Present RRR *Routine Abdominal Exam Abdominal: Present soft and normoactive bowel sounds; Absent tenderness *Routine Rectal Exam Patient deferred: visual exam *Routine Exam Patient deferred: external exam *Routine Extremities Exam Extremities: Absent cyanosis, clubbing or edema *Routine Skin Exam Skin: Present warm; Absent rash *Routine Neurological Exam Neurological: Present alert, oriented X3 and moving all extremities; Absent altered mental status Results Data Completed and Pending Labs on day of discharge: Labs from last 24 hours 07/22/23 07/22/23 07/21/23 05:51 05:24 18:00 WBC 3.9 L RBC 2.78 L Hgb 9.0 L D Hct 27.6 L MCV 99.4 H MCH 32.6 H MCHC 32.8 RDW 15.4 Plt Count 193 MPV 8.2 Neut % (Auto) 46.2 Lymph % (Auto) 45.8 [place] % (Auto) 6.8 Eos % (Auto) 1.0 Baso % (Auto) 0.3 Neut # (Auto) 1.8 Lymph # (Auto) 1.8 [place] # (Auto) 0.3 Eos # (Auto) 0.0 Baso # (Auto) 0.0 Sodium 131 L 133 L Potassium 5.5 H 4.9 D Chloride 103 101 Carbon Dioxide 22 15 L Anion Gap 11.5 21.9 H BUN 33 H 34 H Creatinine 1.20 H 1.30 H Estimated Creat Clear 36 32 Estimated GFR 44 L 40 L Est GFR ( Amer) 53 L 48 L Glucose 86 D 121 H D POC Glucose 94 Calcium 9.1 9.5 Magnesium 2.0 Total Bilirubin 0.3 AST 22 ALT 20 Alkaline Phosphatase 61 Troponin I NT-Pro-B Natriuret Pep Total Protein 5.8 L Albumin 3.8 D Globulin 2.0 Albumin/Globulin Ratio 1.9 H 07/21/23 07/21/23 07/21/23 16:27 12:30 10:40 WBC 4.6 L RBC 3.40 L Hgb 11.1 L Hct 34.3 L MCV 101.0 H MCH 32.5 H MCHC 32.2 RDW 15.2 Plt Count 243 MPV 8.3 Neut % (Auto) 73.0 Lymph % (Auto) 21.0 [place] % (Auto) 5.2 Eos % (Auto) 0.3 Baso % (Auto) 0.4 Neut # (Auto) 3.4 Lymph # (Auto) 1.0 [place] # (Auto) 0.2 Eos # (Auto) 0.0 Baso # (Auto) 0.0 Sodium 128 L 128 L Potassium 7.6 H* 7.1 H* Chloride 102 101 Carbon Dioxide 19 L 20 L Anion Gap 14.6 14.1 BUN 37 H 36 H Creatinine 1.30 H 1.40 H Estimated Creat Clear 33 30 Estimated GFR 40 L 37 L Est GFR ( Amer) 48 L 44 L Glucose 96 115 H POC Glucose Calcium 9.4 10.0 Magnesium Total Bilirubin 0.5 AST 27 ALT 25 Alkaline Phosphatase 81 Troponin I 0.03 0.02 < 0.01 NT-Pro-B Natriuret Pep 698 H Total Protein 7.5 Albumin 5.0 Globulin 2.5 Albumin/Globulin Ratio 2.0 H DS: Diagnosis Discharge Diagnosis (1) Acute hyperkalemia: Status: Acute Code(s): E87.5 - Hyperkalemia (2) Chest pain: Status: Acute Code(s): R07.9 - Chest pain, unspecified (3) History of mechanical aortic valve replacement: Status: Chronic Code(s): Z98.890 - Other specified postprocedural states; Z95.2 - Presence of prosthetic heart valve (4) Hypertension: Status: Chronic Code(s): I10 - Essential (primary) hypertension Qualifiers: Hypertension type: essential hypertension Qualified Code(s): I10 - Essential (primary) hypertension (5) S/P CABG x 1: Status: Chronic Code(s): Z95.1 - Presence of aortocoronary bypass graft Problem details: CABGx1 SVG from ascending aorta to the LAD 03/28/18 (6) Status post aortic valve replacement with bioprosthetic valve: Status: Chronic Code(s): Z95.3 - Presence of xenogenic heart valve Problem details: 03/28/2018 Sekela Yanez Intuity rapid deployed valve. (7) MAX (acute kidney injury): Status: Acute Code(s): N17.9 - Acute kidney failure, unspecified Meds Home Medications and Allergies Home Medications Medication Instructions Recorded Confirmed Type venlafaxine 37.5 mg tablet 37.5 mg PO BID mood 07/26/17 07/21/23 History metformin 500 mg tablet 500 mg PO BID 05/13/18 07/21/23 History quetiapine 50 mg tablet (Seroquel) 50 mg PO HS 12/13/18 07/21/23 History acetaminophen 500 mg tablet (Pain 500 - 1,000 mg PO Q6HP PRN Pain 09/24/22 07/21/23 History Relief Extra Strength (acetaminophen)) clopidogrel 75 mg tablet (Plavix) 75 mg PO DAILY 02/27/23 07/21/23 History meclizine 12.5 mg tablet 12.5 mg PO DAILYP PRN Dizziness Or 02/28/23 07/21/23 History Vertigo metoprolol succinate 50 mg 50 mg PO DAILY 02/28/23 07/21/23 History tablet,extended release 24 hr diazepam 2 mg tablet 2 mg PO TID PRN Anxiety 30 days 03/03/23 07/21/23 Rx #90 tabs sennosides 8.6 mg-docusate sodium 1 tab PO DAILY PRN Constipation #0 03/03/23 07/21/23 Rx 50 mg tablet (Stool tabs Softener-Stimulant Laxative) alendronate 70 mg tablet 70 mg PO WEEKLY 07/21/23 07/21/23 History aspirin 81 mg chewable tablet 81 mg PO DAILY 07/21/23 07/21/23 History atorvastatin 40 mg tablet 40 mg PO DAILY 07/21/23 07/21/23 History calcium carbonate 500 mg-vitamin 1 tab PO BID 07/21/23 07/21/23 History D3 2.5 mcg (100 unit) chewable tablet cholecalciferol (vitamin D3) 50 2,000 unit PO DAILY 07/21/23 07/21/23 History mcg (2,000 unit) tablet famotidine 20 mg tablet 20 mg PO DAILY 07/21/23 07/21/23 History gabapentin 100 mg capsule 200 mg PO HS 07/21/23 07/21/23 History isosorbide mononitrate 30 mg 30 mg PO DAILY 07/21/23 07/21/23 History tablet,extended release 24 hr lisinopril 20 mg tablet 20 mg PO DAILY 07/21/23 07/21/23 History omeprazole 20 mg capsule,delayed 20 mg PO DAILY 07/21/23 07/21/23 History release New Prescriptions to Start Prescriptions: Allergies Allergy/AdvReac Type Severity Reaction Status Date / Time codeine [CODEINE] Allergy Unknown WEAK Verified 07/21/23 13:54 hydrochlorothiazide Allergy Unknown I-RASH Verified 07/21/23 13:54 [HYDROCHLOROTHIAZIDE] hydrocodone [HYDROCODONE] Allergy Unknown I-RASH Verified 07/21/23 13:54 metoclopramide Allergy Unknown SLURRED Verified 07/21/23 13:54 [METOCLOPRAMIDE] SPEECH, WEAK nifedipine [NIFEDIPINE] Allergy Unknown I-HIVES Verified 07/21/23 13:54 prazosin [PRAZOSIN] Allergy Unknown ITCHING/WEA Verified 07/21/23 13:54 K triamterene [TRIAMTERENE] Allergy Unknown I-RASH Verified 07/21/23 13:54 Discharge Plan Disposition Patient Disposition: Home, Self-Care Condition: Fair Follow up Plan Follow up with: Hansel Ruff MD [Primary Care Provider] - 1 week (Please call tomorrow for a follow up appt. ) Prescriptions/Medication Reconciliation: Continued venlafaxine 37.5 mg tablet 37.5 mg PO BID metformin 500 mg tablet 500 mg PO BID quetiapine [Seroquel] 50 mg tablet 50 mg PO HS acetaminophen [Pain Relief ES (acetaminophen)] 500 mg tablet 500 - 1,000 mg PO Q6HP PRN (Reason: Pain) clopidogrel [Plavix] 75 mg tablet 75 mg PO DAILY metoprolol succinate 50 mg tablet extended release 24 hr 50 mg PO DAILY meclizine 12.5 mg tablet 12.5 mg PO DAILYP PRN (Reason: Dizziness Or Vertigo) sennosides-docusate sodium [Stool Softener-Stimulant Laxat] 8.6-50 mg Tablet 1 tab PO DAILY PRN (Reason: Constipation) Qty: 0 0RF diazepam 2 mg tablet 2 mg PO TID PRN (Reason: Anxiety) 30 Days Qty: 90 0RF alendronate 70 mg tablet 70 mg PO WEEKLY Rx Instructions: Take on omeprazole 20 mg capsule,delayed release(DR/EC) 20 mg PO DAILY calcium carbonate-vitamin D3 500 mg-2.5 mcg (100 unit) tablet,chewable 1 tab PO BID cholecalciferol (vitamin D3) 50 mcg (2,000 unit) tablet 2,000 unit PO DAILY atorvastatin 40 mg tablet 40 mg PO DAILY isosorbide mononitrate 30 mg tablet extended release 24 hr 30 mg PO DAILY famotidine 20 mg tablet 20 mg PO DAILY aspirin 81 mg tablet,chewable 81 mg PO DAILY gabapentin 100 mg capsule 200 mg PO HS Held lisinopril 20 mg tablet 20 mg PO DAILY Hold Instructions: pending follow-up with PCP and recheck of potassium levels Other Ambulatory Orders: Comprehensive Metabolic Panel (Routine) Timeframe: 2 Days Facility: [facility] - Location: Laboratory Ordered By: Trevor Chavarria Problem Reconciliation Problems Reviewed?: Yes Patient Discharge Instructions ACTIVITY: Continue current activity DIET: continue same diet Patient Instructions: Acute Kidney Injury, Hyperkalemia Providers Primary Care Provider: Hansel Ruff Admit Provider: Trevor Chavarria Attending Provider: Trevor Chavarria
[2023-07-22] MEDS: ATORVASTATIN 40MG TABLET 40 MG PO (08:32)
[2023-07-22] MEDS: CLOPIDOGREL 75MG TAB 75 MG PO (08:32)
[2023-07-22] MEDS: FAMOTIDINE 20MG TABLET 20 MG PO (08:32)
[2023-07-22] MEDS: ASPIRIN 81MG CHEWABLE TABLET 81 MG PO (08:32)
[2023-07-22] MEDS: ISOSORBIDE MONO 30MG TAB.ER.24H 30 MG PO (08:32)
[2023-07-22] MEDS: VENLAFAXINE 37.5MG TABLET 37.5 MG PO (08:32)
[2023-07-22] MEDS: METOPROLOL SUCCINATE XL 50MG TABLET 50 MG PO (10:04)
[2023-07-22 11:03] LABS: POC Glucose,Bedside 104 (70-110)
[2023-07-23 02:19] LABS: POC Glucose,Bedside 172 (70-110)
--- NOTE | 2023-07-23 15:01 | CARE MANAGER ---
Contacted patient related to hospital discharge. She states she is feeling better and contacted Dr. Ruff's office to schedule a visit and is waiting on a call back. Denies questions or concerns. EDDA Chirinos
== END 2023-07-22 13:46 | disposition home or self-care (01) ==
LOC: ER 13:53 → 2ND 14:05
PROVIDERS: Admitting Provider Internal Medicine Adolescent Medicine; Emergency Provider Emergency Medicine; PCP Internal Medicine; Visit Provider Internal Medicine Adolescent Medicine
DX: E87.5 Hyperkalemia (principal); N17.9 Acute kidney failure, unspecified; Z95.0 Presence of cardiac pacemaker; Z95.1 Presence of aortocoronary bypass graft; Z95.4 Presence of other heart-valve replacement; I25.10 Atherosclerotic heart disease of native coronary artery without angina pectoris; E11.9 Type 2 diabetes mellitus without complications; Z79.899 Other long term (current) drug therapy; Z79.84 Long term (current) use of oral hypoglycemic drugs; R06.9 Unspecified abnormalities of breathing
CPT/HCPCS: 36415; 71045; 80048; 80053; 82962; 83735; 83880; 84484; 85025; 93005; 99291; G0378

== ENCOUNTER 2023-07-23 11:05 | Outpatient (CLI) | payer OTHER, SELFPAY ==
[2023-07-23 11:58] LABS: Chloride 100 mmol/L (98-107); Sodium 132 mmol/L (136-145)
[2023-07-23 12:01] LABS: Alanine Aminotransferase 22 U/L (12-78); Alkaline Phosphatase 65 U/L (38-126); Bilirubin,Total 0.4 mg/dl (0.2-1.3); Blood Urea Nitrogen 27 mg/dl (7-17); Carbon Dioxide 23 mmol/L (22.0-30.0); Estimated Glomerular Filt Rate 61 ml/min (>60); GFR (African American) 74 ML/MIN (>60)
[2023-07-23 12:02] LABS: Albumin Level 4.2 g/dl (3.5-5.0); Calcium 9.2 mg/dl (8.4-10.2); Globulin 2.1 g/dL (1.3-3.2); Glucose 83 mg/dl (74-100); Total Protein,Serum 6.3 g/dl (6.3-8.2)
[2023-07-23 12:30] LABS: Aspartate Amino Transferase 24 U/L (14-36)
--- NOTE | 2023-07-23 14:21 | EXP.EVENT.NO ---
Contacted patient, discussed her labs. Please that her potassium is 5 and kidney function is improving. No other interventions at this time. Follow-up with PCP as instructed at discharge.
== END 2023-07-23 23:59 ==
PROVIDERS: PCP Internal Medicine; Visit Provider Internal Medicine Adolescent Medicine
DX: E87.5 Hyperkalemia (principal); N17.9 Acute kidney failure, unspecified
CPT/HCPCS: 36415; 80053

== ENCOUNTER 2023-08-11 14:43 | Outpatient (CLI) | payer MEDICARE, OTHER, SELFPAY | END 2023-08-11 23:59 | PROVIDERS: PCP Internal Medicine; Visit Provider Internal Medicine | DX: I10 Essential (primary) hypertension (principal); E87.5 Hyperkalemia; N19 Unspecified kidney failure | CPT/HCPCS: 36415 ==

== ENCOUNTER 2023-08-12 15:38 | Outpatient (CLI) | payer OTHER, SELFPAY ==
[2023-08-12 17:41] LABS: Blood Urea Nitrogen 15 mg/dl (7-17); Calcium 9.8 mg/dl (8.4-10.2); Carbon Dioxide 25 mmol/L (22.0-30.0); Chloride 105 mmol/L (98-107); Estimated Glomerular Filt Rate 82 ml/min (>60); GFR (African American) 99 ML/MIN (>60); Glucose 101 mg/dl (74-100); Sodium 140 mmol/L (136-145)
== END 2023-08-12 23:59 ==
LOC: LAB 15:39
PROVIDERS: PCP Internal Medicine; Visit Provider Internal Medicine
DX: I10 Essential (primary) hypertension (principal); E87.5 Hyperkalemia; N17.9 Acute kidney failure, unspecified
CPT/HCPCS: 80048

== ENCOUNTER 2023-09-08 14:34 | Outpatient (CLI) | payer MEDICARE, OTHER, SELFPAY ==
[2023-09-08 16:46] LABS: Anion Gap 14.5 mEq/L (5-15); Blood Urea Nitrogen 21 mg/dl (7-17); Calcium 9.7 mg/dl (8.4-10.2); Carbon Dioxide 23 mmol/L (22.0-30.0); Chloride 104 mmol/L (98-107); Estimated Glomerular Filt Rate 82 ml/min (>60); GFR (African American) 99 ML/MIN (>60); Glucose 229 mg/dl (74-100); Potassium 4.5 mmoL/L (3.5-5.1); Sodium 137 mmol/L (136-145)
[2023-09-08 17:16] LABS: Basophils % 0.3 % (0.1-2.0); Hematocrit 33.9 % (37.0-47.0); Hemoglobin 10.5 g/dL (12.2-16.2); Lymphocytes # 0.6 K/mm3 (0.7-4.5); Lymphocytes % 7.4 % (10-50); Mean Corpuscular HGB Conc 31.1 g/dL (31.8-35.4); Mean Corpuscular Hemoglobin 32.7 pg (27.0-31.2); Mean Corpuscular Volume 105.2 fl (81-99); Mean Platelet Volume 8.1 fl (7.4-10.4); Monocytes # 5.6 K/mm3 (0.1-1.0); Monocytes % 73.6 % (1.7-9.3); Neutrophils # 1.4 K/mm3 (1.8-7.8); Neutrophils % 18.6 % (37.0-80.0); Platelet Count 257 K/mm3 (142-424); Red Blood Count 3.22 M/mm3 (4.20-5.40); Red Cell Distribution Width 15.8 % (11.5-17.5); White Blood Count 7.7 K/mm3 (4.8-10.8)
[2023-09-08 17:20] LABS: MANUAL DIFFERENTIAL MANUAL DIFFERENTIAL (MANUAL DIFF)
[2023-09-08 17:55] LABS: Lymphocytes % 10 % (10-50); Monocytes % 4 % (2-9); Neutrophils % 83 % (42-76); Nucleated Red Blood Cells 1; Total Cells Counted 100
[2023-09-08 17:57] LABS: Hypochromasia 3+; Macrocytosis 2+; Platelet Estimate Normal
== END 2023-09-08 23:59 ==
LOC: LAB 14:35
PROVIDERS: PCP Internal Medicine; Visit Provider Internal Medicine
DX: R10.13 Epigastric pain (principal); I10 Essential (primary) hypertension; E87.5 Hyperkalemia; D64.9 Anemia, unspecified; Z79.899 Other long term (current) drug therapy
CPT/HCPCS: 36415; 80048; 85007; 85025

== ENCOUNTER 2023-09-28 07:37 | Outpatient (CLI) | payer MEDICARE, OTHER, SELFPAY ==
--- NOTE | 2023-09-28 07:43 | CT_ITS ---
FINAL REPORT CLINICAL HISTORY: EPIGASTRIC PAIN,LT CHEST PAIN,ACHALASIA COMPARISON: 07/06/2023 FINDINGS: Axial CT images of the abdomen and pelvis were obtained without intravenous contrast. Coronal reformatted images were also obtained.This study was performed with techniques to keep radiation doses as low as reasonably achievable (ALARA). Individualized dose reduction techniques using automated exposure control or adjustment of mA and/or kV according to the patient's size were employed. Abdomen: There is no evidence of renal stone or hydronephrosis. There are a total of 4 low-attenuation masses in the liver which were present on the prior exam. The largest is in the posterior liver dome measuring approximately 27 mm and contains multiple calcifications. These are nonspecific but are visually stable. The spleen and pancreas have an unremarkable, unenhanced appearance. No mass or adenopathy is seen. No inflammatory process is identified. There is postoperative change in the anterior abdominal wall. There are moderate vascular calcifications. Pelvis: The appendix is not visualized but may be surgically absent. Post hysterectomy. No mass or abnormal fluid collection is identified. There is postoperative change in the left femur. IMPRESSION: Stable nonspecific hepatic masses. These could be further evaluated with additional follow-up CT or liver MRI without and with contrast. No acute inflammatory process. Reviewed, Interpreted and Dictated by Juan Cabrera III, MD Transcribed by Vianney Mack Authenticated and [facility]
--- NOTE | 2023-09-28 07:43 | CT_ITS ---
FINAL REPORT TECHNIQUE: Axial images were obtained from the lung apex to the mid abdomen by computed tomography. Coronal reformatted images were obtained. This study was performed with techniques to keep radiation doses as low as reasonably achievable, (ALARA). Individualized dose reduction techniques using automated exposure control or adjustment of mA and/or kV according to the patient''s size were employed. CLINICAL HISTORY: EPIGASTRIC PAIN,LT CHEST PAIN,ACHALASIA COMPARISON: 10/15/2020 FINDINGS: Prior median sternotomy. Left subclavian pacer is present. There is wall thickening of the distal thoracic esophagus favored to be inflammatory. There is no axillary adenopathy. There is no hilar or mediastinal adenopathy. Heart size is normal. There is no pericardial or pleural effusion. There are several calcified granulomas. There are multiple new less than 5 mm right upper lobe nodules measuring up to about 3 mm and well seen on image 23. There is a 5 mm nodule near the minor fissure on image 43 which is stable. There is a nodule in the medial right middle lobe measuring 5 mm on image 47, also stable. There is a cluster of new small nodules in the lateral segment of the right middle lobe measuring less than 5 mm on image 44. IMPRESSION: New clustered small nodules in the right lung favored to be inflammatory but neoplasm not excluded. These could be further evaluated with follow-up chest CT in 6 months Persistent wall thickening of the distal esophagus, favor inflammatory. Reviewed, Interpreted and Dictated by Juan Cabrera III, MD Transcribed by Vianney Mack Authenticated and [facility]
== END 2023-09-28 23:59 ==
LOC: RAD 07:38
PROVIDERS: PCP Internal Medicine; Visit Provider Internal Medicine
DX: K22.0 Achalasia of cardia (principal); R07.9 Chest pain, unspecified; R10.13 Epigastric pain
CPT/HCPCS: 71250; 74176

== ENCOUNTER 2023-10-06 07:29 | Day surgery (SDC) | payer MEDICARE, OTHER, SELFPAY ==
[2023-10-05 13:45] VITALS: BMI 22.6
[2023-10-06] VITALS (7 sets, daily range): BP systolic 140–169; BP diastolic 67–75; PULSE 71–73; RESP 16–18; TEMP 36.1–36.3; O2SAT 96–99
[2023-10-06 08:01] LABS: POC Glucose,Bedside 95 (70-110)
[2023-10-06] MEDS: LACTATED RINGERS 1000ML 1,000 ML 25 ML IV (08:10)
--- NOTE | 2023-10-06 08:11 | SUR.PREOP ---
Pt alert and oriented x4 this AM. Poor historian. Unable to recall last time medications were taken. Anesthesia aware.
--- NOTE | 2023-10-06 08:14 | EXP.ANES.CKL ---
[facility] Disclaimer: The information contained in this section may have been updated after the patient was seen, as this information can be updated by other users. Medical History Carotid artery stenosis Coronary artery disease History of left heart catheterization Surgical History History of permanent cardiac pacemaker placement S/P CABG x 1 Status post aortic valve replacement with bioprosthetic valve Family History Family history of cancer Family history of hypertension Family history of diabetes mellitus type II Family history of myocardial infarction Social History (Updated 10/06/23 @ 08:10 by Lisa Delgado RN) Smoking Status: Never smoker second hand exposure: Yes alcohol intake: never substance use type: denies use current occupational status: retired Travel in the last 8 weeks: None household members: none housing: apartment lives independently: Yes marital status: single education level: middle school service: No care home: No current occupational exposures/hazards: No caffeine: Yes do you feel safe at home: Yes victim of physical abuse: No victim of emotional abuse: No victim of sexual abuse: No would you like helpful sources: No [facility] Anesthesia Checklist Patient Identification Patient Identification: Arm Band and Verbal (Name & ) Structural Data Admitted From: Home Planned Operative Procedure/s: EGD w/Botox imnj Consent for Planned Operative Procedure(s) Verified: Yes Verified Documents: Surgical Consent and History and Physical NPO Status Verified Time NPO: 21:00 Chart Verification Results Verified: CBC, BMP, ECG and Chest Xray Additional verifications Fingerstick Blood Glucose: 95 Patient : No Anesthesia Reactions: No Cardiovascular Assessment Heart Sounds: S1 & S2 Pulse Rhythm: Irregular Peripheral Edema: No Airway Assessment Mallampati Score:: Class II C-Spine Mobility Assessed: Yes (FROM) TMJ Mobility Assessed: Yes Dentition: Edentulous Neurological Assessment Level of Consciousness: Awake, Alert, Appropriate and Follows Commands Hx Seizures: No Numbness or tingling in extremities: No Anesthesia Plan Anesthesia Risk discussed: Yes Anesthesia Plan: Verified ASA Class: III Anesthesia Type: MAC
[2023-10-06] MEDS: BOTULINUM TOXIN TYPE A 100 UNIT/ML IM (09:11)
--- NOTE | 2023-10-06 09:17 | P.PCN_ITS ---
Procedure: Date: 10/06/23 Patient Date of :: 1950 Procedure Performed:: EGD Indications:: The patient is a 72-year-old who presents for EGD evaluation for dysphagia. The patient has had a barium esophagram that has shown esophageal dysmotility and dilated distal esophagus with beaking in the distal esophagus. The patient has had EGD with esophageal dilation with a TTS balloon with a maximum dilation of 20 mm in the past. The patient has persisted with dysphagia despite esophageal dilatation Performing Provider:: Edgar Mackey MD Referring Provider:: Hansel Ruff MD Sedation:: See RN record Procedure:: The gastroscope was gently passed through the incisoral orifice into the oral cavity and under direct visualization the esophagus was intubated. The endoscope was passed down the esophagus, through the stomach, and into the duodenum. Color, texture, mucosa, and anatomy of the esophagus, stomach, and duodenum were carefully examined with the scope. Findings:: There was some corkscrew appearance to the distal esophagus. There was benign- appearing narrowing at the GE junction. The EGD scope was able to pass easily through this area. The Z-line was measured at 32 to 33 cm. Five injections of Botox at 20 units (1 ml) were injected 1-2 cm above the Z-line all around the circumference of the distal esophagus. There was a small hiatal hernia. There was mild inflammation characterized by erythema in the antrum and body. The examined duodenum appeared normal. Impression Corkscrew appearance of distal esophagus Benign-appearing narrowing at the GE junction Mild erythema of the stomach Recommendations:: Recommend use of PPIs and H2RA's as needed Patient should try a diet for esophageal dysmotility that can include to be sure that she eats slowly, take small bites, always sit in an upright position with meals Follow-up with primary care provider Complications:: None Estimated blood obtained (mL): 0 Colonoscopy Component Colonoscopy Component Was a colonoscopy performed during today's procedure?: No
--- NOTE | 2023-10-06 09:21 | EXP.ANES.I ---
[facility] Anesthesia Record Part I Anesthesia Record I Intake, IV Amount: 250 Hydration: Adequate Estimated blood loss (mL): 1 Urine output (mL): 0 Blood Products used (#): none Blood Pressure: 140/68 SaO2: 97 Pulse Rate: 73 Airway Patency: Patent Respiratory Rate: 16 Temperature: 97.3 F Patient is:: Awake (Talking) and Stable Stable to PACU at:: 09:25
== END 2023-10-06 09:48 | disposition home or self-care (01) ==
PROVIDERS: PCP Internal Medicine; Visit Provider Internal Medicine
PROC: 3E0G8TZ Introduction of Destructive Agent into Upper GI, Via Natural or Artificial Opening Endoscopic (ICD-10-PCS; CPT 43236; principal; 2023-10-06 08:30)
DX: R13.10 Dysphagia, unspecified (principal); K22.4 Dyskinesia of esophagus; K44.9 Diaphragmatic hernia without obstruction or gangrene; K31.89 Other diseases of stomach and duodenum; Z79.899 Other long term (current) drug therapy
CPT/HCPCS: 43201; 82962; J0585

== ENCOUNTER 2023-10-12 14:28 | Outpatient (CLI) | payer MEDICARE, OTHER, SELFPAY ==
[2023-10-12 14:44] LABS: Basophils % 0.4 % (0.1-2.0); Eosinophils % 0.2 % (0.1-12.0); Hematocrit 34.8 % (37.0-47.0); Hemoglobin 11.4 g/dL (12.2-16.2); Lymphocytes # 0.8 K/mm3 (0.7-4.5); Lymphocytes % 7.3 % (10-50); Mean Corpuscular HGB Conc 32.7 g/dL (31.8-35.4); Mean Corpuscular Hemoglobin 32.9 pg (27.0-31.2); Mean Corpuscular Volume 100.7 fl (81-99); Mean Platelet Volume 8.2 fl (7.4-10.4); Monocytes # 0.7 K/mm3 (0.1-1.0); Monocytes % 6.3 % (1.7-9.3); Neutrophils # 8.9 K/mm3 (1.8-7.8); Neutrophils % 85.8 % (37.0-80.0); Platelet Count 250 K/mm3 (142-424); Red Blood Count 3.46 M/mm3 (4.20-5.40); Red Cell Distribution Width 15.1 % (11.5-17.5); White Blood Count 10.4 K/mm3 (4.8-10.8)
[2023-10-12 14:53] LABS: MANUAL DIFFERENTIAL MANUAL DIFFERENTIAL (MANUAL DIFF)
[2023-10-12 14:55] LABS: Chloride 106 mmol/L (98-107); Potassium 3.4 mmoL/L (3.5-5.1); Sodium 138 mmol/L (136-145)
[2023-10-12 14:58] LABS: Blood Urea Nitrogen 23 mg/dl (7-17); Estimated Glomerular Filt Rate 70 ml/min (>60); GFR (African American) 85 ML/MIN (>60)
[2023-10-12 14:59] LABS: Anion Gap 14.4 mEq/L (5-15); Calcium 10.4 mg/dl (8.4-10.2); Carbon Dioxide 21 mmol/L (22.0-30.0); Glucose 178 mg/dl (74-100)
[2023-10-12 15:30] LABS: Hypochromasia 1+; Lymphocytes % 7 % (10-50); Macrocytosis 1+; Monocytes % 2 % (2-9); Neutrophils % 91 % (42-76); Platelet Estimate Normal; Total Cells Counted 100
== END 2023-10-12 23:59 ==
PROVIDERS: PCP Internal Medicine; Visit Provider Internal Medicine
DX: D64.9 Anemia, unspecified (principal); Z79.899 Other long term (current) drug therapy
CPT/HCPCS: 36415; 80048; 85007; 85025

== ENCOUNTER 2023-10-16 13:01 | Emergency (ER) | payer MEDICARE, SELFPAY ==
[2023-10-16] VITALS (7 sets, daily range): BP systolic 128–172; BP diastolic 58–84; PULSE 66–75; RESP 16–18; TEMP 36.4; O2SAT 97–99; BMI 22.8
--- NOTE | 2023-10-16 13:22 | CT_ITS ---
PROCEDURE INFORMATION: Exam: CT Chest With Contrast; Diagnostic Exam date and time: 10/16/2023 1:53 PM Age: 72 years old Clinical indication: Other: Dysphagia worse with solids after egd TECHNIQUE: Imaging protocol: Diagnostic computed tomography of the chest with contrast. Radiation optimization: All CT scans at this facility use at least one of these dose optimization techniques: automated exposure control; mA and/or kV adjustment per patient size (includes targeted exams where dose is matched to clinical indication); or iterative reconstruction. Contrast material: ISOVUE; Contrast volume: 75 ml; Contrast route: IV; COMPARISON: CT CHEST WO CON 09/28/2023 7:52 AM FINDINGS: Tubes, catheters and devices: Transvenous pacemaker leads in the heart Lungs: Unremarkable. No consolidation. No masses. Pleural spaces: Unremarkable. No pneumothorax. No pleural effusion. Heart: Aortic valve replacement Coronary arteries: Coronary artery calcifications may indicate coronary artery disease. Esophagus: Distal esophageal wall thickening 15.9 mm (series 4, image 46).. Lymph nodes: Unremarkable. No enlarged lymph nodes. Vasculature: Unremarkable. No aortic aneurysm. Diaphragm: Small hiatal hernia Liver: 2.3 cm cystic structure with peripheral calcification in the right lobe of the liver.. 12 mm low-attenuation area in the right lobe of the liver (series 4, image 62.). 14 mm low-attenuation area in the right lobe of the liver 60 Hounsfield units (series 4, image 66) . Pancreas: Fatty infiltration of the pancreas Bones/joints: Median sternotomy Soft tissues: Unremarkable. IMPRESSION: 1. Distal esophageal wall thickening 15.9 mm (series 4, image 46).. Recommend further evaluation for esophageal pathology 2. 2.3 cm cystic structure with peripheral calcification in the right lobe of the liver.. 3. 12 mm low-attenuation area in the right lobe of the liver (series 4, image 62.). 14 mm low-attenuation area in the right lobe of the liver 60 Hounsfield units (series 4, image 66) . Recommend liver MRI
--- NOTE | 2023-10-16 13:22 | CT_ITS ---
PROCEDURE INFORMATION: Exam: CT Neck With Contrast Exam date and time: 10/16/2023 1:49 PM Age: 72 years old Clinical indication: Dysphagia worse with solids after egd. TECHNIQUE: Imaging protocol: Computed tomography of the neck with contrast. Radiation optimization: All CT scans at this facility use at least one of these dose optimization techniques: automated exposure control; mA and/or kV adjustment per patient size (includes targeted exams where dose is matched to clinical indication); or iterative reconstruction. Contrast material: ISOVUE; Contrast volume: 50 ml; Contrast route: IV; COMPARISON: CT CERVICAL SPINE WO CON 02/27/2023 9:45 PM FINDINGS: Brain: There are chronic lacunar infarcts. Pharynx: Unremarkable. No significant tonsillar enlargement. Larynx: Unremarkable. Epiglottis is normal. Prevertebral and retropharyngeal spaces: Unremarkable. Salivary glands: Normal. Glands are normal in size. Thyroid: Normal. No enlarged or calcified nodules. Lymph nodes: Unremarkable. No lymphadenopathy. Trachea: Visualized trachea is unremarkable. Lungs: Unremarkable as visualized. Bones/joints: Unremarkable. No acute fracture. Soft tissues: Unremarkable. No significant soft tissue swelling. IMPRESSION: No acute findings.
--- NOTE | 2023-10-16 13:24 | HMH.EDGENADL ---
Discharge Plan Disposition Patient Disposition: Home, Self-Care Chief Complaint: Recheck/Abnormal Lab/Rx Prescriptions Prescriptions: No Action venlafaxine 37.5 mg tablet 37.5 mg PO BID metformin 500 mg tablet 500 mg PO BID quetiapine [Seroquel] 50 mg tablet 50 mg PO HS metoprolol succinate 50 mg tablet extended release 24 hr See Rx Instructions .ROUTE .COMPLEX Qty: 90 3RF Dose Instruction: TAKE ONE TABLET BY MOUTH ONCE A DAY FOR HIGH BLOOD PRESSURE Rx Instructions: TAKE ONE TABLET BY MOUTH ONCE A DAY FOR HIGH BLOOD PRESSURE acetaminophen [Pain Relief ES (acetaminophen)] 500 mg tablet 500 - 1,000 mg PO Q6HP PRN (Reason: Pain) clopidogrel [Plavix] 75 mg tablet 75 mg PO DAILY meclizine 12.5 mg tablet 12.5 mg PO DAILYP PRN (Reason: Dizziness Or Vertigo) sennosides-docusate sodium [Stool Softener-Stimulant Laxat] 8.6-50 mg Tablet 1 tab PO DAILY PRN (Reason: Constipation) Qty: 0 0RF diazepam 2 mg tablet 2 mg PO TID PRN (Reason: Anxiety) 30 Days Qty: 90 0RF alendronate 70 mg tablet 70 mg PO WEEKLY Rx Instructions: Take on omeprazole 20 mg capsule,delayed release(DR/EC) 20 mg PO DAILY calcium carbonate-vitamin D3 500 mg-2.5 mcg (100 unit) tablet,chewable 1 tab PO BID cholecalciferol (vitamin D3) 50 mcg (2,000 unit) tablet 2,000 unit PO DAILY atorvastatin 40 mg tablet 40 mg PO DAILY lisinopril 20 mg tablet 20 mg PO DAILY Hold Instructions: pending follow-up with PCP and recheck of potassium levels isosorbide mononitrate 30 mg tablet extended release 24 hr 30 mg PO DAILY famotidine 20 mg tablet 20 mg PO DAILY aspirin 81 mg tablet,chewable 81 mg PO DAILY gabapentin 100 mg capsule 200 mg PO HS Referrals Follow up/Referrals: Hansel uRff MD [Primary Care Provider] - See instructions Activity Restrictions/Add. Instructions Additional Instructions/Restrictions: Follow-up with your family doctor regarding this visit to the emergency department. Talk to them about scheduling liver MRI versus hepatology follow-up for possible liver biopsies to thigh etiology, or cause, of liver lesions. Also talked about scheduling a colonoscopy to further assess for polyps. Call your microsoft windows engineer to schedule an appointment for follow-up of upper endoscopy (EGD) and results of today's scan showing narrowing. Clinical Impressions Clinical Impression: Dysphagia, Vomiting, Hypodense mass of liver Discharge ED Provider: Lennox Conrad General Adult HPI <Kamlesh Wei MD - Last Filed: 10/16/23 15:12> General Chief complaint: Recheck/Abnormal Lab/Rx Stated complaint: trouble swallowing solids, prev throat procedure Time Seen by Provider: 10/16/23 13:14 Mode of Arrival: Ambulatory Source of Information: Patient Limitations: No Limitations Description of Symptoms (Recalled from ER Triage Doc. by RN): Patient presents to ED with complaints of having trouble having swallowing solid foods since yesterday after being very nauseaous. patient states she had procedure done on October 05 on her esophagus and had botox injected. History of Present Illness HPI narrative: Patient is a 72-year-old female with past medical history of chronic dysphagia with recent EGD who presents emergency department for evaluation of dysphagia. Patient has been evaluated by Edgar Mackey and recently had EGD on . She has a history of an esophagram that showed esophageal dysmotility with dilated distal esophagus with beaking in the distal esophagus and has had previous esophageal dilation with a TTS balloon with maximum dilation of 20 mm in the past. Patient had persistent dysphagia despite esophageal dilatation and underwent a repeat EGD which found a corkscrew appearance to the distal esophagus with benign-appearing narrowing at the GE junction. There was mild erythema in the stomach and was recommended to use PPI, H2 RA's as needed with an attempted diet for esophageal dysmotility making sure she chew small bites and sets an upright position with meals. Since then she has been largely unable to tolerate solids and has vomiting. She has tolerated liquids and has normal urinary frequency. No significant reports of pain. No other acute complaints at this time. Related Data Home Medications Medication Instructions Recorded Confirmed venlafaxine 37.5 mg tablet 37.5 mg PO BID mood 07/26/17 10/05/23 metformin 500 mg tablet 500 mg PO BID 05/13/18 10/05/23 quetiapine 50 mg tablet (Seroquel) 50 mg PO HS 12/13/18 10/05/23 acetaminophen 500 mg tablet (Pain 500 - 1,000 mg PO Q6HP PRN Pain 09/24/22 10/05/23 Relief Extra Strength (acetaminophen)) clopidogrel 75 mg tablet (Plavix) 75 mg PO DAILY 02/27/23 10/05/23 meclizine 12.5 mg tablet 12.5 mg PO DAILYP PRN Dizziness Or 02/28/23 10/05/23 Vertigo alendronate 70 mg tablet 70 mg PO WEEKLY 07/21/23 10/05/23 aspirin 81 mg chewable tablet 81 mg PO DAILY 07/21/23 10/05/23 atorvastatin 40 mg tablet 40 mg PO DAILY 07/21/23 10/05/23 calcium carbonate 500 mg-vitamin 1 tab PO BID 07/21/23 10/05/23 D3 2.5 mcg (100 unit) chewable tablet cholecalciferol (vitamin D3) 50 2,000 unit PO DAILY 07/21/23 10/05/23 mcg (2,000 unit) tablet famotidine 20 mg tablet 20 mg PO DAILY 07/21/23 10/05/23 gabapentin 100 mg capsule 200 mg PO HS 07/21/23 10/05/23 isosorbide mononitrate 30 mg 30 mg PO DAILY 07/21/23 10/05/23 tablet,extended release 24 hr lisinopril 20 mg tablet 20 mg PO DAILY 07/21/23 10/05/23 omeprazole 20 mg capsule,delayed 20 mg PO DAILY 07/21/23 10/05/23 release Previous Rx's Medication Instructions Recorded diazepam 2 mg tablet 2 mg PO TID PRN Anxiety 30 days 03/03/23 #90 tabs sennosides 8.6 mg-docusate sodium 1 tab PO DAILY PRN Constipation #0 03/03/23 50 mg tablet (Stool tabs Softener-Stimulant Laxative) metoprolol succinate 50 mg See Rx Instructions .Route 10/11/23 tablet,extended release 24 hr .COMPLEX #90 tabs Allergies Allergy/AdvReac Type Severity Reaction Status Date / Time codeine [CODEINE] Allergy Unknown WEAK Verified 10/06/23 07:45 hydrochlorothiazide Allergy Unknown I-RASH Verified 10/06/23 07:45 [HYDROCHLOROTHIAZIDE] hydrocodone [HYDROCODONE] Allergy Unknown I-RASH Verified 10/06/23 07:45 metoclopramide Allergy Unknown SLURRED Verified 10/06/23 07:45 [METOCLOPRAMIDE] SPEECH, WEAK nifedipine [NIFEDIPINE] Allergy Unknown I-HIVES Verified 10/06/23 07:45 prazosin [PRAZOSIN] Allergy Unknown ITCHING/WEA Verified 10/06/23 07:45 K triamterene [TRIAMTERENE] Allergy Unknown I-RASH Verified 10/06/23 07:45 PFSH <Kamlesh Wei MD - Last Filed: 10/16/23 15:12> [facility] Disclaimer: The information contained in this section may have been updated after the patient was seen, as this information can be updated by other users. Medical History Carotid artery stenosis Coronary artery disease History of left heart catheterization Surgical History History of permanent cardiac pacemaker placement S/P CABG x 1 Status post aortic valve replacement with bioprosthetic valve Family History Family history of cancer Family history of hypertension Family history of diabetes mellitus type II Family history of myocardial infarction Social History (Updated 10/06/23 @ 08:10 by Lisa Delgado RN) Smoking Status: Never smoker second hand exposure: Yes alcohol intake: never substance use type: denies use current occupational status: retired Travel in the last 8 weeks: None household members: none housing: apartment lives independently: Yes marital status: single education level: middle school service: No half-way: No current occupational exposures/hazards: No caffeine: Yes do you feel safe at home: Yes victim of physical abuse: No victim of emotional abuse: No victim of sexual abuse: No would you like helpful sources: No <Kamlesh Wei MD - Last Filed: 10/16/23 15:12> ROS Obtained: Yes Systems reviewed as appropriate & no additional complaints except as documented Physical Exam <Kamlesh Wei MD - Last Filed: 10/16/23 15:12> General General appearance: alert and in no apparent distress Head Head exam: atraumatic and normocephalic Eye Eye exam: Present PERRL and EOMI ENT ENT exam: Present mucous membranes moist Neck Neck exam: Present normal inspection Chest Chest inspection: Present normal inspection and symmetric chest wall rise Respiratory Respiratory exam: Present normal lung sounds bilaterally; Absent respiratory distress Cardiovascular Cardiovascular exam: Present regular rate and normal rhythm Abdominal Exam Abdominal exam: Present soft; Absent tenderness Extremities Exam Extremities exam: Present normal inspection Neurological Exam Neurological exam: Present alert Psychiatric Psychiatric exam: Present normal affect Skin Skin exam: Present warm and dry Medical Decision Making <Kamlesh Wei MD - Last Filed: 10/16/23 15:12> Chet Inquiry Pt receiving controlled substance: No Vital Signs: 10/16/23 13:03 10/16/23 13:30 10/16/23 14:09 Temperature 97.6 F Temperature Source Oral Pulse Rate 69 68 Pulse Rate [Right] 75 Respiratory Rate 16 18 18 Blood Pressure 141/63 H 153/67 H Blood Pressure [Right Arm] 172/84 H Blood Pressure Mean 105 95 Blood Pressure Mean [Right Arm] 113 Blood Pressure Source [Right Arm] Automatic Cuff 02 Sat by Pulse Oximetry 99 99 99 Oxygen Delivery Method Room Air 10/16/23 14:30 10/16/23 15:19 10/16/23 15:30 Temperature Temperature Source Pulse Rate 66 68 68 Pulse Rate [Right] Respiratory Rate 18 18 18 Blood Pressure 145/67 H 128/58 L 135/64 Blood Pressure [Right Arm] Blood Pressure Mean 103 90 87 Blood Pressure Mean [Right Arm] Blood Pressure Source [Right Arm] 02 Sat by Pulse Oximetry 98 99 97 Oxygen Delivery Method Lab Data Lab Results 10/16/23 13:15: WBC 5.4, RBC 2.83 L, Hgb 9.5 L, Hct 29.4 L, MCV 103.9 H, MCH 33.5 H, MCHC 32.3, RDW 15.3, Plt Count 186 D, MPV 8.2, Neut % (Auto) 63.9, Lymph % (Auto) 25.3, Hendry % (Auto) 7.9, Eos % (Auto) 1.7, Baso % (Auto) 1.3, Neut # (Auto) 3.5, Lymph # (Auto) 1.4, Hendry # (Auto) 0.4, Eos # (Auto) 0.1, Baso # (Auto) 0.1, Sodium 135 L, Potassium 3.8, Chloride 102, Carbon Dioxide 25, Anion Gap 11.8, BUN 16, Creatinine 0.70, Estimated Creat Clear 41, Estimated GFR 82, Est GFR ( Amer) 99, Glucose 105 H, Calcium 11.1 H, Total Bilirubin 0.5, AST 27, ALT 26, Alkaline Phosphatase 70, Total Protein 6.3, Albumin 4.3, Globulin 2.0, Albumin/Globulin Ratio 2.2 H 10/16/23 13:15 10/16/23 13:15 Orders (Tests/Meds): ED MEDICATIONS Generic Name Dose Route Start Last Admin Trade Name Freq PRN Reason Stop Dose Admin Sodium Chloride 10 ml 10/16/23 13:57 Sodium Chloride 0.9% 10ml Syr (Rad Only) IV 11/15/23 13:56 NEEDED PRN Maintain IV Site Discontinued Medications Generic Name Dose Route Start Last Admin Trade Name Freq PRN Reason Stop Dose Admin Iopamidol 125 ml 10/16/23 13:57 10/16/23 13:58 Iopamidol-370 (76%);100ml Bottle IV 10/16/23 13:58 125 ml ONCE ONE Administration Ondansetron HCl 4 mg 10/16/23 15:19 10/16/23 15:23 Ondansetron 4mg/2ml Vial IV 10/16/23 15:20 4 mg ONCE ONE Administration ORDERS Category Date Time Status CT chest w con Stat Cat Scan 10/16/23 13:[address] soft tissue neck w con Stat Cat Scan 10/16/23 13:22 Completed CBC w/Auto Diff [Complete Blood Count Auto Diff] Stat Lab 10/16/23 13:15 Completed CMP [Comprehensive Metabolic Panel] Stat Lab 10/16/23 13:15 Completed Medical Decision Narrative: In summary patient is a 72-year-old female with past medical history described above who presents emergency department for evaluation of acute on chronic dysphagia in the setting of known esophageal dysmotility status post previous dilatation and recent EGD without additional dilatation. Patient is hemodynamically stable nontoxic-appearing upon arrival, afebrile. Differential diagnosis includes side effect of Botox injection, Boerhaave's, worsening of known dysmotility, among others. Initial workup will be conducted with hematologic labs, CT neck, chest with IV contrast. Initial workup reviewed by me, hematologic labs are nonactionable, no MAX or critical electrolyte abnormalities, mild hypercalcemia for which no further intervention is necessary. Albumin is normal. CT imaging and repeat evaluation pending at time of transition of care to the oncoming physician, Dr. Conrad. <Lennox Conrad MD - Last Filed: 10/16/23 16:07> Vital Signs: 10/16/23 13:03 10/16/23 13:30 10/16/23 14:09 Temperature 97.6 F Temperature Source Oral Pulse Rate 69 68 Pulse Rate [Right] 75 Respiratory Rate 16 18 18 Blood Pressure 141/63 H 153/67 H Blood Pressure [Right Arm] 172/84 H Blood Pressure Mean 105 95 Blood Pressure Mean [Right Arm] 113 Blood Pressure Source [Right Arm] Automatic Cuff 02 Sat by Pulse Oximetry 99 99 99 Oxygen Delivery Method Room Air 10/16/23 14:30 10/16/23 15:19 10/16/23 15:30 Temperature Temperature Source Pulse Rate 66 68 68 Pulse Rate [Right] Respiratory Rate 18 18 18 Blood Pressure 145/67 H 128/58 L 135/64 Blood Pressure [Right Arm] Blood Pressure Mean 103 90 87 Blood Pressure Mean [Right Arm] Blood Pressure Source [Right Arm] 02 Sat by Pulse Oximetry 98 99 97 Oxygen Delivery Method Lab Data Lab Results 10/16/23 13:15: WBC 5.4, RBC 2.83 L, Hgb 9.5 L, Hct 29.4 L, MCV 103.9 H, MCH 33.5 H, MCHC 32.3, RDW 15.3, Plt Count 186 D, MPV 8.2, Neut % (Auto) 63.9, Lymph % (Auto) 25.3, Hendry % (Auto) 7.9, Eos % (Auto) 1.7, Baso % (Auto) 1.3, Neut # (Auto) 3.5, Lymph # (Auto) 1.4, Hendry # (Auto) 0.4, Eos # (Auto) 0.1, Baso # (Auto) 0.1, Sodium 135 L, Potassium 3.8, Chloride 102, Carbon Dioxide 25, Anion Gap 11.8, BUN 16, Creatinine 0.70, Estimated Creat Clear 41, Estimated GFR 82, Est GFR ( Amer) 99, Glucose 105 H, Calcium 11.1 H, Total Bilirubin 0.5, AST 27, ALT 26, Alkaline Phosphatase 70, Total Protein 6.3, Albumin 4.3, Globulin 2.0, Albumin/Globulin Ratio 2.2 H Orders (Tests/Meds): ED MEDICATIONS Generic Name Dose Route Start Last Admin Trade Name Freq PRN Reason Stop Dose Admin Sodium Chloride 10 ml 10/16/23 13:57 Sodium Chloride 0.9% 10ml Syr (Rad Only) IV 11/15/23 13:56 NEEDED PRN Maintain IV Site Discontinued Medications Generic Name Dose Route Start Last Admin Trade Name Juan F PRN Reason Stop Dose Admin Iopamidol 125 ml 10/16/23 13:57 10/16/23 13:58 Iopamidol-370 (76%);100ml Bottle IV 10/16/23 13:58 125 ml ONCE ONE Administration Ondansetron HCl 4 mg 10/16/23 15:19 10/16/23 15:23 Ondansetron 4mg/2ml Vial IV 10/16/23 15:20 4 mg ONCE ONE Administration ORDERS Category Date Time Status CT chest w con Stat Cat Scan 10/16/23 13:[address] soft tissue neck w con Stat Cat Scan 10/16/23 13:22 Completed CBC w/Auto Diff [Complete Blood Count Auto Diff] Stat Lab 10/16/23 13:15 Completed CMP [Comprehensive Metabolic Panel] Stat Lab 10/16/23 13:15 Completed Medical Decision Narrative: In summary patient is a 72-year-old female with past medical history described above who presents emergency department for evaluation of acute on chronic dysphagia in the setting of known esophageal dysmotility status post previous dilatation and recent EGD without additional dilatation. Patient is hemodynamically stable nontoxic-appearing upon arrival, afebrile. Differential diagnosis includes side effect of Botox injection, Boerhaave's, worsening of known dysmotility, among others. Initial workup will be conducted with hematologic labs, CT neck, chest with IV contrast. Initial workup reviewed by me, hematologic labs are nonactionable, no MAX or critical electrolyte abnormalities, mild hypercalcemia for which no further intervention is necessary. Albumin is normal. CT imaging and repeat evaluation pending at time of transition of care to the oncoming physician, Dr. Conrad. [place]: I assumed primary responsibility for this patient after signout from previous physician. Independent interpretation of workup demonstrated no leukocytosis, hemoglobin 9.5 which is within normal limits for patient. Platelets normal at 186. Nonactionable chemistry, LFTs normal, bilirubin normal. Patient's protein is within normal limits, electrolytes normal, notably. Appears to be well-nourished. CT of the chest with distal esophageal wall thickening 1.5 cm, as well as nonspecific thickening of low attenuating lesions in the liver. On my evaluation patient, tearful with news. Reassurance was given and patient voiced understanding. It was recommended the patient follow-up with her family doctor and get colonoscopy, hepatology follow-up scheduled for possible biopsy and MRI. She voiced understanding. Also recommended that she follow-up with GI for another EGD, if needed. Voiced her understanding to this as well. Because patient at baseline without signs or symptoms of clinical decompensation, deemed appropriate for discharge. Results were relayed to patient and family who voiced understanding and were agreeable to outpatient management and follow up. I discussed my clinical impression with patient and family and answered all questions. At this time, the evidence for any other entities in the differential is insufficient to warrant any further testing or ED observation. This was explained as well. Advisory was given that persistent or worsening symptoms require further evaluation. I confirmed the understanding of this discussion. Critical Care <Kamlesh Wei MD - Last Filed: 10/16/23 15:12> Critical Care Time Critical Care Time: No
[2023-10-16 13:32] LABS: Chloride 102 mmol/L (98-107); Potassium 3.8 mmoL/L (3.5-5.1); Sodium 135 mmol/L (136-145)
[2023-10-16 13:35] LABS: Alanine Aminotransferase 26 U/L (12-78); Albumin Level 4.3 g/dl (3.5-5.0); Albumin/Globulin Ratio 2.2 (1.1-1.8); Alkaline Phosphatase 70 U/L (38-126); Anion Gap 11.8 mEq/L (5-15); Aspartate Amino Transferase 27 U/L (14-36); Bilirubin,Total 0.5 mg/dl (0.2-1.3); Blood Urea Nitrogen 16 mg/dl (7-17); Calcium 11.1 mg/dl (8.4-10.2); Carbon Dioxide 25 mmol/L (22.0-30.0); Creatinine Clearance Estimated 41 mL/min (50-200); Estimated Glomerular Filt Rate 82 ml/min (>60); GFR (African American) 99 ML/MIN (>60); Glucose 105 mg/dl (74-100); Total Protein,Serum 6.3 g/dl (6.3-8.2)
[2023-10-16 13:37] LABS: Basophils # 0.1 K/mm3 (0-0.2); Basophils % 1.3 % (0.1-2.0); Eosinophils # 0.1 K/mm3 (0.0-0.4); Eosinophils % 1.7 % (0.1-12.0); Hematocrit 29.4 % (37.0-47.0); Hemoglobin 9.5 g/dL (12.2-16.2); Lymphocytes # 1.4 K/mm3 (0.7-4.5); Lymphocytes % 25.3 % (10-50); Mean Corpuscular HGB Conc 32.3 g/dL (31.8-35.4); Mean Corpuscular Hemoglobin 33.5 pg (27.0-31.2); Mean Corpuscular Volume 103.9 fl (81-99); Mean Platelet Volume 8.2 fl (7.4-10.4); Monocytes # 0.4 K/mm3 (0.1-1.0); Monocytes % 7.9 % (1.7-9.3); Neutrophils # 3.5 K/mm3 (1.8-7.8); Neutrophils % 63.9 % (37.0-80.0); Platelet Count 186 K/mm3 (142-424); Red Blood Count 2.83 M/mm3 (4.20-5.40); Red Cell Distribution Width 15.3 % (11.5-17.5); White Blood Count 5.4 K/mm3 (4.8-10.8)
--- NOTE | 2023-10-16 13:43 | PC.NURSE ---
Pt gone to RAD
[2023-10-16] MEDS: IOPAMIDOL-370 (76%);100ML BOTTLE 125 ML IV (13:58)
--- NOTE | 2023-10-16 13:58 | PC.NURSE ---
Pt returned from RAD
--- NOTE | 2023-10-16 14:11 | PC.NURSE ---
PT ambulatory to bathroom and back to bed
[2023-10-16] MEDS: ONDANSETRON 4MG/2ML VIAL 4 MG IV (15:23)
== END 2023-10-16 16:12 | disposition home or self-care (01) ==
PROVIDERS: Emergency Medicine; Emergency Provider Emergency Medicine; PCP Internal Medicine
DX: R13.10 Dysphagia, unspecified (principal); R11.10 Vomiting, unspecified; K76.89 Other specified diseases of liver; I11.9 Hypertensive heart disease without heart failure; I25.10 Atherosclerotic heart disease of native coronary artery without angina pectoris; E78.5 Hyperlipidemia, unspecified; E11.9 Type 2 diabetes mellitus without complications; Z95.5 Presence of coronary angioplasty implant and graft; Z95.1 Presence of aortocoronary bypass graft; Z79.84 Long term (current) use of oral hypoglycemic drugs
CPT/HCPCS: 70491; 71260; 80053; 85025; 96374; 99285; J2405; Q9967

== ENCOUNTER 2023-10-23 12:30 | Emergency (ER) | payer MEDICARE, SELFPAY ==
[2023-10-23 12:41] VITALS: BP 142/72; PULSE 88; RESP 16; TEMP 36.6; O2SAT 98; BMI 22.8
[2023-10-23 13:00] VITALS: BP 146/80; PULSE 80; O2SAT 98
--- NOTE | 2023-10-23 13:15 | HMH.EDGENADL ---
Discharge Plan Disposition Patient Disposition: Home, Self-Care Chief Complaint: Recheck/Abnormal Lab/Rx Prescriptions Prescriptions: No Action venlafaxine 37.5 mg tablet 37.5 mg PO BID metformin 500 mg tablet 500 mg PO BID quetiapine [Seroquel] 50 mg tablet 50 mg PO HS metoprolol succinate 50 mg tablet extended release 24 hr See Rx Instructions .ROUTE .COMPLEX Qty: 90 3RF Dose Instruction: TAKE ONE TABLET BY MOUTH ONCE A DAY FOR HIGH BLOOD PRESSURE Rx Instructions: TAKE ONE TABLET BY MOUTH ONCE A DAY FOR HIGH BLOOD PRESSURE acetaminophen [Pain Relief ES (acetaminophen)] 500 mg tablet 500 - 1,000 mg PO Q6HP PRN (Reason: Pain) clopidogrel [Plavix] 75 mg tablet 75 mg PO DAILY meclizine 12.5 mg tablet 12.5 mg PO DAILYP PRN (Reason: Dizziness Or Vertigo) sennosides-docusate sodium [Stool Softener-Stimulant Laxat] 8.6-50 mg Tablet 1 tab PO DAILY PRN (Reason: Constipation) Qty: 0 0RF diazepam 2 mg tablet 2 mg PO TID PRN (Reason: Anxiety) 30 Days Qty: 90 0RF alendronate 70 mg tablet 70 mg PO WEEKLY Rx Instructions: Take on omeprazole 20 mg capsule,delayed release(DR/EC) 20 mg PO DAILY calcium carbonate-vitamin D3 500 mg-2.5 mcg (100 unit) tablet,chewable 1 tab PO BID cholecalciferol (vitamin D3) 50 mcg (2,000 unit) tablet 2,000 unit PO DAILY atorvastatin 40 mg tablet 40 mg PO DAILY lisinopril 20 mg tablet 20 mg PO DAILY Hold Instructions: pending follow-up with PCP and recheck of potassium levels isosorbide mononitrate 30 mg tablet extended release 24 hr 30 mg PO DAILY famotidine 20 mg tablet 20 mg PO DAILY aspirin 81 mg tablet,chewable 81 mg PO DAILY gabapentin 100 mg capsule 200 mg PO HS Referrals Follow up/Referrals: Hansel Ruff MD [Primary Care Provider] - See instructions Juan Jansen MD [Staff Physician] - See instructions Activity Restrictions/Add. Instructions Additional Instructions/Restrictions: Up with Dr. Jansen regarding colonoscopy in the setting of polyps in the past and liver lesions. Call your family doctor to establish care for this visit to the emergency department and schedule follow-up within 48 hours to ensure improvement. If you have any worsening of your condition or any other concerning signs or symptoms, return to the emergency department or your primary care doctor for further evaluation. Clinical Impressions Clinical Impression: Encounter for medical assessment Discharge ED Provider: Lennox Conrad General Adult HPI General Chief complaint: Recheck/Abnormal Lab/Rx Stated complaint: nauseous, stomach pain Time Seen by Provider: 10/23/23 12:34 Mode of Arrival: Ambulatory Source of Information: Patient Limitations: No Limitations Description of Symptoms (Recalled from ER Triage Doc. by RN): wants to talk about CT results from last week. unresolved abdominal pain. History of Present Illness HPI narrative: 72-year-old female with extensive medical history presenting without complaints, but would like to know results of radiology scans. Patient states that after she was discharged here, by me, on the sixth of this month, was seen by her family doctor. Alleges that her family doctor told her nothing was wrong with her and was not given any follow-up. Patient presents to the emergency department because she wants to know the results of her CT scan that was done here in the emergency department. No associated symptoms that are new, tolerating p.o. intake without issue. Please note that above description of symptoms, in this electronic medical record under categorization of recalled from ER triage doctor by RN are reflective of an initial nursing assessment, however, is not reflective of my full history and physical exam that was personally taken and clarified. Consequentially, this preceding description of symptoms, which may include the patient's categorized chief complaint in the EMR, do not reflect my personal clinical impression, and the ultimate description of history of present illness and patient stated complaints should be deferred to this section of the note. Unless stated otherwise or congruent with this section of the note, additional signs, symptoms, or incongruence should be interpreted as inaccurate with my clinical impression. Related Data Home Medications Medication Instructions Recorded Confirmed venlafaxine 37.5 mg tablet 37.5 mg PO BID mood 07/26/17 10/05/23 metformin 500 mg tablet 500 mg PO BID 05/13/18 10/05/23 quetiapine 50 mg tablet (Seroquel) 50 mg PO HS 12/13/18 10/05/23 acetaminophen 500 mg tablet (Pain 500 - 1,000 mg PO Q6HP PRN Pain 09/24/22 10/05/23 Relief Extra Strength (acetaminophen)) clopidogrel 75 mg tablet (Plavix) 75 mg PO DAILY 02/27/23 10/05/23 meclizine 12.5 mg tablet 12.5 mg PO DAILYP PRN Dizziness Or 02/28/23 10/05/23 Vertigo alendronate 70 mg tablet 70 mg PO WEEKLY 07/21/23 10/05/23 aspirin 81 mg chewable tablet 81 mg PO DAILY 07/21/23 10/05/23 atorvastatin 40 mg tablet 40 mg PO DAILY 07/21/23 10/05/23 calcium carbonate 500 mg-vitamin 1 tab PO BID 07/21/23 10/05/23 D3 2.5 mcg (100 unit) chewable tablet cholecalciferol (vitamin D3) 50 2,000 unit PO DAILY 07/21/23 10/05/23 mcg (2,000 unit) tablet famotidine 20 mg tablet 20 mg PO DAILY 07/21/23 10/05/23 gabapentin 100 mg capsule 200 mg PO HS 07/21/23 10/05/23 isosorbide mononitrate 30 mg 30 mg PO DAILY 07/21/23 10/05/23 tablet,extended release 24 hr lisinopril 20 mg tablet 20 mg PO DAILY 07/21/23 10/05/23 omeprazole 20 mg capsule,delayed 20 mg PO DAILY 07/21/23 10/05/23 release Previous Rx's Medication Instructions Recorded diazepam 2 mg tablet 2 mg PO TID PRN Anxiety 30 days 03/03/23 #90 tabs sennosides 8.6 mg-docusate sodium 1 tab PO DAILY PRN Constipation #0 03/03/23 50 mg tablet (Stool tabs Softener-Stimulant Laxative) metoprolol succinate 50 mg See Rx Instructions .Route 10/11/23 tablet,extended release 24 hr .COMPLEX #90 tabs Allergies Allergy/AdvReac Type Severity Reaction Status Date / Time codeine [CODEINE] Allergy Unknown WEAK Verified 10/06/23 07:45 hydrochlorothiazide Allergy Unknown I-RASH Verified 10/06/23 07:45 [HYDROCHLOROTHIAZIDE] hydrocodone [HYDROCODONE] Allergy Unknown I-RASH Verified 10/06/23 07:45 metoclopramide Allergy Unknown SLURRED Verified 10/06/23 07:45 [METOCLOPRAMIDE] SPEECH, WEAK nifedipine [NIFEDIPINE] Allergy Unknown I-HIVES Verified 10/06/23 07:45 prazosin [PRAZOSIN] Allergy Unknown ITCHING/WEA Verified 10/06/23 07:45 K triamterene [TRIAMTERENE] Allergy Unknown I-RASH Verified 10/06/23 07:45 PFSH [facility] Disclaimer: The information contained in this section may have been updated after the patient was seen, as this information can be updated by other users. Medical History Carotid artery stenosis Coronary artery disease History of left heart catheterization Surgical History History of permanent cardiac pacemaker placement S/P CABG x 1 Status post aortic valve replacement with bioprosthetic valve Family History Family history of cancer Family history of hypertension Family history of diabetes mellitus type II Family history of myocardial infarction Social History (Updated 10/06/23 @ 08:10 by Lisa Delgado RN) Smoking Status: Never smoker second hand exposure: Yes alcohol intake: never substance use type: denies use current occupational status: retired Travel in the last 8 weeks: None household members: none housing: apartment lives independently: Yes marital status: single education level: middle school service: No intermediate: No current occupational exposures/hazards: No caffeine: Yes do you feel safe at home: Yes victim of physical abuse: No victim of emotional abuse: No victim of sexual abuse: No would you like helpful sources: No ROS Obtained: Yes All systems reviewed & no additional complaints except as documented Physical Exam General General appearance: alert and in no apparent distress Head Head exam: atraumatic and normocephalic Eye Eye exam: Present normal appearance, PERRL and EOMI ENT ENT exam: Present mucous membranes moist Neck Neck exam: Present normal inspection, full ROM and trachea midline Respiratory Respiratory exam: Absent respiratory distress, wheezes, stridor, accessory muscle use or prolonged expiratory phase Cardiovascular Cardiovascular exam: Present normal rhythm Abdominal Exam Abdominal exam: Present soft; Absent distention, tenderness, guarding, rebound or rigidity Extremities Exam Extremities exam: Absent edema Neurological Exam Neurological exam: Present alert, oriented X3, CN II-XII intact and normal gait; Absent motor sensory deficit Skin Skin exam: Present warm and dry; Absent diaphoresis or erythema Medical Decision Making Medical Records Medical records reviewed: Yes I reviewed the patient's medical records. Chet Inquiry Pt receiving controlled substance: No Chet was queried for this patient: No Vital Signs: 10/23/23 12:41 10/23/23 13:00 Temperature 98 F Temperature Source Oral Pulse Rate 80 Pulse Rate [Right] 88 Respiratory Rate 16 Blood Pressure 146/80 H Blood Pressure [Right Arm] 142/72 H Blood Pressure Mean [Right Arm] 95 02 Sat by Pulse Oximetry 98 98 Oxygen Delivery Method Room Air Medical Decision Narrative: 72-year-old female with extensive medical history presenting without complaints, but would like to know results of radiology scans. Patient states that after she was discharged here, by me, on the sixth of this month, was seen by her family doctor. Alleges that her family doctor told her nothing was wrong with her and was not given any follow-up. Patient presents to the emergency department because she wants to know the results of her CT scan that was done here in the emergency department. No associated symptoms that are new, tolerating p.o. intake without issue. History obtained with patient. On arrival, patient very well-appearing, hemodynamically stable and at baseline. Abdomen soft, nontender, nondistended. Extensive conversation had with patient and daughter, I still recommend she follows up with her family doctor for colonoscopy. Colonoscopy reviewed, patient did have 2 polyps at that time. Conversation with patient and family, no further workup necessary at this time given no change in symptoms and very well-appearing patient. Because patient at baseline without signs or symptoms of clinical decompensation, deemed appropriate for discharge. Results were relayed to patient who voiced understanding and were agreeable to outpatient management and follow up. I discussed my clinical impression with patient and answered all questions. At this time, the evidence for any other entities in the differential is insufficient to warrant any further testing or ED observation. This was explained as well. Advisory was given that persistent or worsening symptoms require further evaluation. I confirmed the understanding of this discussion. Critical Care Critical Care Time Critical Care Time: No
[2023-10-23 14:00] VITALS: BP 139/71; PULSE 83; O2SAT 99
[2023-10-23 14:15] VITALS: BP 139/71; PULSE 81; RESP 15; TEMP 36.7
== END 2023-10-23 14:16 | disposition home or self-care (01) ==
PROVIDERS: Emergency Provider Emergency Medicine; PCP Internal Medicine
DX: Z00.8 Encounter for other general examination (principal)
CPT/HCPCS: 99282

== ENCOUNTER 2023-10-25 13:22 | Emergency (ER) | payer MEDICARE, SELFPAY ==
--- NOTE | 2023-10-25 13:57 | PC.NURSE ---
Brought pt to triage room collected VS and offered pt a chair in the Rapid Assessment Unit however she declined. Offered to collect blood-work via veinipuncture. Attempting to collect at this time.
--- NOTE | 2023-10-25 14:44 | PC.NURSE ---
[employer]STIGATOR went into Triage and began getting the history. pt had been seen in ER twice this month and was here today to get a scan on her liver that she thought had been ordered by at previous visits. RN looked at both sets of discharge paper work and advised the patient that no test had been ordered and that she is to follow up with PCP, [facility] office, or the MD office who had done her recent EGD procedure. Paper work shows ER MD recommends a liver MRI with possible biopsy and advised patient of this and she states she has a pacemaker. RN advised her to call cardiology office (pt states she sees Romaine VALERO) to see if her device and aortic valve implant she has cards in her wallet for is MRI compatible. Pt was with a family friend who understood everything and patient stated all questions had been answered and that she does not need to be seen today in ER bc she has no new issues or complaints and was just confused or misunderstood the doctor the last time she was here.
[2023-10-25 14:52] VITALS: BP 150/52; PULSE 87; RESP 20; TEMP 36.8; O2SAT 98
== END 2023-10-25 14:53 | disposition left against medical advice (07) ==
LOC: ER 14:04
PROVIDERS: Emergency Provider Emergency Medicine; PCP Internal Medicine
DX: Z53.21 Procedure and treatment not carried out due to patient leaving prior to being seen by health care provider (principal)
CPT/HCPCS: 99281

== ENCOUNTER 2023-10-28 15:28 | Emergency (ER) | payer MEDICARE, SELFPAY ==
[2023-10-28 15:29] VITALS: BP 146/86; PULSE 80; RESP 15; TEMP 36.4; O2SAT 96; BMI 24.1
--- NOTE | 2023-10-28 15:37 | PC.NURSE ---
PA AT BS WITH PT
--- NOTE | 2023-10-28 15:38 | ED_ITS ---
<Statement entered by Karo Cadena MD - 10/28/23 23:07> I was consulted by the [place]APOLE[place], and we discussed the complexity of the problems being addressed. I approved the treatment and management plan for this patient's care in the emergency department, thus performing a substantive portion of the medical decision making. Karo Cadena MD, RADHIKA, FACEP Discharge Plan Disposition Patient Disposition: Home, Self-Care Condition: Good Prescriptions Prescriptions: No Action venlafaxine 37.5 mg tablet 37.5 mg PO BID metformin 500 mg tablet 500 mg PO BID quetiapine [Seroquel] 50 mg tablet 50 mg PO HS metoprolol succinate 50 mg tablet extended release 24 hr See Rx Instructions .ROUTE .COMPLEX Qty: 90 3RF Dose Instruction: TAKE ONE TABLET BY MOUTH ONCE A DAY FOR HIGH BLOOD PRESSURE Rx Instructions: TAKE ONE TABLET BY MOUTH ONCE A DAY FOR HIGH BLOOD PRESSURE acetaminophen [Pain Relief ES (acetaminophen)] 500 mg tablet 500 - 1,000 mg PO Q6HP PRN (Reason: Pain) clopidogrel [Plavix] 75 mg tablet 75 mg PO DAILY meclizine 12.5 mg tablet 12.5 mg PO DAILYP PRN (Reason: Dizziness Or Vertigo) sennosides-docusate sodium [Stool Softener-Stimulant Laxat] 8.6-50 mg Tablet 1 tab PO DAILY PRN (Reason: Constipation) Qty: 0 0RF diazepam 2 mg tablet 2 mg PO TID PRN (Reason: Anxiety) 30 Days Qty: 90 0RF alendronate 70 mg tablet 70 mg PO WEEKLY Rx Instructions: Take on omeprazole 20 mg capsule,delayed release(DR/EC) 20 mg PO DAILY calcium carbonate-vitamin D3 500 mg-2.5 mcg (100 unit) tablet,chewable 1 tab PO BID cholecalciferol (vitamin D3) 50 mcg (2,000 unit) tablet 2,000 unit PO DAILY atorvastatin 40 mg tablet 40 mg PO DAILY lisinopril 20 mg tablet 20 mg PO DAILY Hold Instructions: pending follow-up with PCP and recheck of potassium levels isosorbide mononitrate 30 mg tablet extended release 24 hr 30 mg PO DAILY famotidine 20 mg tablet 20 mg PO DAILY aspirin 81 mg tablet,chewable 81 mg PO DAILY gabapentin 100 mg capsule 200 mg PO HS Activity Restrictions/Add. Instructions Additional Instructions/Restrictions: Please keep your follow-up with your PCP. Please take your antinausea medications as needed. Please return to ER for any worsening signs or symptoms. Clinical Impressions Clinical Impression: Abdominal pain, Achalasia, Nausea Instructions Patient Instructions: DI for Acute Abdominal Pain Discharge ED Provider: Karo Cadena General Adult HPI General Chief complaint: Abdominal Pain Stated complaint: sickness Time Seen by Provider: 10/28/23 15:35 Mode of Arrival: EMS Source of Information: Patient and EMS Limitations: No Limitations Description of Symptoms (Recalled from ER Triage Doc. by RN): pt presents to ED via [facility] for abdominal pain. pt reports pain began today, locates pain in middle of abdomen and rates it 04/20. History of Present Illness HPI narrative: Patient presents from home for chief complaint of abdominal pain and nausea. Patient presents for acute onset of abdominal pain that began today along with associated nausea. Patient states the nausea came first. She denies chest pain fever chills hemoptysis hematochezia melena hematemesis. Patient reports normal bowel movement and no diarrhea. 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 Mackey confirmed that. Related Data Home Medications Medication Instructions Recorded Confirmed venlafaxine 37.5 mg tablet 37.5 mg PO BID mood 07/26/17 10/05/23 metformin 500 mg tablet 500 mg PO BID 05/13/18 10/05/23 quetiapine 50 mg tablet (Seroquel) 50 mg PO HS 12/13/18 10/05/23 acetaminophen 500 mg tablet (Pain 500 - 1,000 mg PO Q6HP PRN Pain 09/24/22 10/05/23 Relief Extra Strength (acetaminophen)) clopidogrel 75 mg tablet (Plavix) 75 mg PO DAILY 02/27/23 10/05/23 meclizine 12.5 mg tablet 12.5 mg PO DAILYP PRN Dizziness Or 02/28/23 10/05/23 Vertigo alendronate 70 mg tablet 70 mg PO WEEKLY 07/21/23 10/05/23 aspirin 81 mg chewable tablet 81 mg PO DAILY 07/21/23 10/05/23 atorvastatin 40 mg tablet 40 mg PO DAILY 07/21/23 10/05/23 calcium carbonate 500 mg-vitamin 1 tab PO BID 07/21/23 10/05/23 D3 2.5 mcg (100 unit) chewable tablet cholecalciferol (vitamin D3) 50 2,000 unit PO DAILY 07/21/23 10/05/23 mcg (2,000 unit) tablet famotidine 20 mg tablet 20 mg PO DAILY 07/21/23 10/05/23 gabapentin 100 mg capsule 200 mg PO HS 07/21/23 10/05/23 isosorbide mononitrate 30 mg 30 mg PO DAILY 07/21/23 10/05/23 tablet,extended release 24 hr lisinopril 20 mg tablet 20 mg PO DAILY 07/21/23 10/05/23 omeprazole 20 mg capsule,delayed 20 mg PO DAILY 07/21/23 10/05/23 release Previous Rx's Medication Instructions Recorded diazepam 2 mg tablet 2 mg PO TID PRN Anxiety 30 days 03/03/23 #90 tabs sennosides 8.6 mg-docusate sodium 1 tab PO DAILY PRN Constipation #0 03/03/23 50 mg tablet (Stool tabs Softener-Stimulant Laxative) metoprolol succinate 50 mg See Rx Instructions .Route 10/11/23 tablet,extended release 24 hr .COMPLEX #90 tabs Allergies Allergy/AdvReac Type Severity Reaction Status Date / Time codeine [CODEINE] Allergy Unknown WEAK Verified 10/06/23 07:45 hydrochlorothiazide Allergy Unknown I-RASH Verified 10/06/23 07:45 [HYDROCHLOROTHIAZIDE] hydrocodone [HYDROCODONE] Allergy Unknown I-RASH Verified 10/06/23 07:45 metoclopramide Allergy Unknown SLURRED Verified 10/06/23 07:45 [METOCLOPRAMIDE] SPEECH, WEAK nifedipine [NIFEDIPINE] Allergy Unknown I-HIVES Verified 10/06/23 07:45 prazosin [PRAZOSIN] Allergy Unknown ITCHING/WEA Verified 10/06/23 07:45 K triamterene [TRIAMTERENE] Allergy Unknown I-RASH Verified 10/06/23 07:45 [facility] Disclaimer: The information contained in this section may have been updated after the patient was seen, as this information can be updated by other users. Medical History Carotid artery stenosis Coronary artery disease History of left heart catheterization Surgical History History of permanent cardiac pacemaker placement S/P CABG x 1 Status post aortic valve replacement with bioprosthetic valve Family History Family history of cancer Family history of hypertension Family history of diabetes mellitus type II Family history of myocardial infarction Social History (Updated 10/06/23 @ 08:10 by Lisa Delgado RN) Smoking Status: Never smoker second hand exposure: Yes alcohol intake: never substance use type: denies use current occupational status: retired Travel in the last 8 weeks: None household members: none housing: apartment lives independently: Yes marital status: single education level: middle school service: No detention: No current occupational exposures/hazards: No caffeine: Yes do you feel safe at home: Yes victim of physical abuse: No victim of emotional abuse: No victim of sexual abuse: No would you like helpful sources: No ROS Obtained: Yes Systems reviewed as appropriate & no additional complaints except as documented Physical Exam General General appearance: alert and in no apparent distress Head Head exam: atraumatic and normal inspection Eye Eye exam: Present normal appearance, PERRL and EOMI ENT ENT exam: Present normal exam, normal oropharynx and mucous membranes moist Neck Neck exam: Present normal inspection and full ROM Chest Chest inspection: Present normal inspection and symmetric chest wall rise Respiratory Respiratory exam: Present normal lung sounds bilaterally; Absent accessory muscle use Cardiovascular Cardiovascular exam: Present regular rate, normal rhythm, normal heart sounds, +S1 and +S2 Abdominal Exam Abdominal exam: Present soft, tenderness and normal bowel sounds Extremities Exam Extremities exam: Present normal inspection and full ROM; Absent tenderness Back Exam Back exam: Present normal inspection and full ROM Neurological Exam Neurological exam: Present alert, CN II-XII intact and other (Patient appears to be slightly confused and lacks insight but is awake and interactive and cooperative with exam) Psychiatric Psychiatric exam: Present normal affect and normal mood Skin Skin exam: Present warm, dry and normal color Medical Decision Making Medical Records Medical records reviewed: Yes I reviewed the patient's medical records. Chet Inquiry Pt receiving controlled substance: No Vital Signs: 10/28/23 15:29 10/28/23 15:45 Temperature 97.6 F Temperature Source Oral Pulse Rate 82 Pulse Rate [Left Radial] 80 Respiratory Rate 15 Blood Pressure 157/82 H Blood Pressure [Right Arm] 146/86 H Blood Pressure Mean [Right Arm] 106 02 Sat by Pulse Oximetry 96 99 Oxygen Delivery Method Room Air Lab Data Lab results reviewed: Yes I reviewed the patient's lab results. Lab Results 10/28/23 16:03: WBC 4.9, RBC 3.61 L, Hgb 11.8 L, Hct 36.5 L, MCV 101.2 H, MCH 32.8 H, MCHC 32.4, RDW 15.5, Plt Count 278, MPV 8.8, Neut % (Auto) 73.4, Lymph % (Auto) 18.2, [place] % (Auto) 6.5, Eos % (Auto) 1.1, Baso % (Auto) 0.7, Neut # (Auto) 3.6, Lymph # (Auto) 0.9, [place] # (Auto) 0.3, Eos # (Auto) 0.1, Baso # (Auto) 0.0, Sodium 138, Potassium 4.9, Chloride 104, Carbon Dioxide 27, Anion Gap 11.9, BUN 16, Creatinine 0.70, Estimated Creat Clear 51, Estimated GFR 82, Est GFR ( Amer) 99, Glucose 150 H, Calcium 10.7 H, Magnesium 1.9, Troponin I < 0.01 10/28/23 16:03 10/28/23 16:03 Orders (Tests/Meds): ED MEDICATIONS Discontinued Medications Generic Name Dose Route Start Last Admin Trade Name Freq PRN Reason Stop Dose Admin Acetaminophen 1,000 mg 10/28/23 15:54 10/28/23 17:26 Acetaminophen 1,000mg/100ml Vial IV 10/28/23 15:55 1,000 mg ONCE ONE Administration Belladonna Alkaloids 60 ml 10/28/23 15:54 10/28/23 17:26 Belladonna Alkaloids 60 Ml Ml PO 10/28/23 15:55 60 ml ONCE ONE Administration Ketorolac Tromethamine 15 mg 10/28/23 15:54 10/28/23 17:26 Ketorolac 30mg/Ml Vial IV 10/28/23 15:55 15 mg ONCE ONE Administration Ondansetron HCl 4 mg 10/28/23 15:58 10/28/23 17:26 Ondansetron 4mg/2ml Vial IV 10/28/23 15:59 4 mg ONCE ONE Administration ORDERS Category Date Time Status BMP [Basic Metabolic Panel] Stat Lab 10/28/23 16:03 Completed CBC w/Auto Diff [Complete Blood Count Auto Diff] Stat Lab 10/28/23 16:03 Completed Magnesium Stat Lab 10/28/23 16:03 Completed Trop I [Troponin I] Stat Lab 10/28/23 16:03 Completed Troponin I Q3H Lab 10/28/23 19:00 Ordered Troponin I Q3H Lab 10/28/23 22:00 Ordered Medical Decision Narrative: In summary patient is a 72-year-old female who presents to the emergency department for evaluation of abdominal pain and nausea. Patient is hemodynamically stable upon arrival, afebrile. Patient is tender to palpation in the epigastrium only with no rebound or guarding or rigidity. Patient has no chest pain. He has normal bowel sounds.. Differential diagnosis includes achalasia versus ulcer versus gastroenteritis versus ACS. Initial workup will be conducted with hematologic labs twelve-lead EKG. Initial interventions include antiemetics GI cocktail Toradol Tylenol. Initial workup reviewed by me shows that her hematologic labs are nonactionable twelve-lead EKG is normal troponin is negative. Upon repeat evaluation patient reports resolution of her symptoms with the current regimen. Given this I had a discussion with the patient's PCP Dr. Ruff regarding patient management. Dr. Ruff is aware of the hepatic lesions that have been present for a long time and stable . Patient was apparently made aware of this by her PCP as well but seems to have forgotten it. Patient also appears to have lack of insight into her achalasia and what to expect going forward. Patient has a follow-up with her PCP tomorrow and thus she is appropriate for discharge for now with close follow-up with her PCP Critical Care Critical Care Time Critical Care Time: No
[2023-10-28 15:45] VITALS: BP 157/82; PULSE 82; O2SAT 99
--- NOTE | 2023-10-28 16:02 | ECG_ITS ---
APPROVED REPORT Exam: Resting ECG HR:75 bpm ECG Measurements Heart Rate 75 AXES SC 140 P 56 QRSd 166 QRS -67 QT 429 T 96 QTc 457 Conclusion ELECTRONIC VENTRICULAR PACEMAKER ABNORMAL RHYTHM ECG UNCONFIRMED REPORT Electronically signed by : Trevor Cadena, 10/28/2023 23:13:59
--- NOTE | 2023-10-28 16:13 | PC.NURSE ---
called Dr Ruff office per Dr Cadena to speak with him about this pt.
[2023-10-28 16:16] LABS: Basophils % 0.7 % (0.1-2.0); Eosinophils # 0.1 K/mm3 (0.0-0.4); Eosinophils % 1.1 % (0.1-12.0); Hematocrit 36.5 % (37.0-47.0); Hemoglobin 11.8 g/dL (12.2-16.2); Lymphocytes # 0.9 K/mm3 (0.7-4.5); Lymphocytes % 18.2 % (10-50); Mean Corpuscular HGB Conc 32.4 g/dL (31.8-35.4); Mean Corpuscular Hemoglobin 32.8 pg (27.0-31.2); Mean Corpuscular Volume 101.2 fl (81-99); Mean Platelet Volume 8.8 fl (7.4-10.4); Monocytes # 0.3 K/mm3 (0.1-1.0); Monocytes % 6.5 % (1.7-9.3); Neutrophils # 3.6 K/mm3 (1.8-7.8); Neutrophils % 73.4 % (37.0-80.0); Platelet Count 278 K/mm3 (142-424); Red Blood Count 3.61 M/mm3 (4.20-5.40); Red Cell Distribution Width 15.5 % (11.5-17.5); White Blood Count 4.9 K/mm3 (4.8-10.8)
[2023-10-28 16:28] LABS: Chloride 104 mmol/L (98-107)
[2023-10-28 16:29] LABS: Potassium 4.9 mmoL/L (3.5-5.1); Sodium 138 mmol/L (136-145)
[2023-10-28 16:31] LABS: Blood Urea Nitrogen 16 mg/dl (7-17); Creatinine Clearance Estimated 51 mL/min (50-200); Estimated Glomerular Filt Rate 82 ml/min (>60); GFR (African American) 99 ML/MIN (>60)
[2023-10-28 16:32] LABS: Anion Gap 11.9 mEq/L (5-15); Calcium 10.7 mg/dl (8.4-10.2); Carbon Dioxide 27 mmol/L (22.0-30.0); Glucose 150 mg/dl (74-100); Magnesium 1.9 mg/dl (1.6-2.3)
--- NOTE | 2023-10-28 16:32 | PC.NURSE ---
multiple attempts to obtain IV and blood, and one attempt at IV US,unsuccessful at this time. HS notified and will come to obtain IV via US
[2023-10-28] MEDS: ACETAMINOPHEN 1,000MG/100ML VIAL 1000 MG IV (17:26)
[2023-10-28] MEDS: BELLADONNA ALKALOIDS 60 ML ML PO (17:26)
[2023-10-28] MEDS: ONDANSETRON 4MG/2ML VIAL 4 MG IV (17:26)
[2023-10-28] MEDS: KETOROLAC 30MG/ML VIAL 15 MG IV (17:26)
[2023-10-28 17:40] LABS: Troponin I < 0.01 ng/ml (0.00-0.034)
[2023-10-28 18:08] VITALS: BP 138/68; PULSE 70; RESP 16; TEMP 36.7
== END 2023-10-28 18:09 | disposition home or self-care (01) ==
PROVIDERS: Physician Assistant; Emergency Provider Student in an Organized Health Care Education/Training Program; PCP Internal Medicine
DX: R10.84 Generalized abdominal pain (principal); K22.0 Achalasia of cardia; R11.0 Nausea; Z95.0 Presence of cardiac pacemaker
CPT/HCPCS: 80048; 83735; 84484; 85025; 93005; 96374; 96375; 99284; J0131; J2405

== ENCOUNTER 2023-10-30 11:17 | Emergency (ER) | payer MEDICARE, SELFPAY ==
[2023-10-30 10:57] VITALS: BP 151/76; PULSE 77; RESP 16; TEMP 36.5; O2SAT 96; BMI 22.6
[2023-10-30 11:05] VITALS: BP 151/76; PULSE 70; RESP 18; O2SAT 100
[2023-10-30 11:36] LABS: Microscopic, Urine URINE MICROSCOPIC (MICROSCOPIC)
[2023-10-30 11:37] LABS: Appearance,Urine CLEAR (Clear); Bilirubin,Urine Negative (Negative); Blood, Urine Negative (Negative); Color,Urine YELLOW (Yellow); Glucose,Urine (UA) Negative (Negative); Ketones,Urine Negative (Negative); Leukocyte Esterase,Urine Negative (Negative); Nitrate,Urine Negative (Negative); Protein,Urine Negative (Negative); Specific Gravity, Urine <= 1.005 (1.005-1.030); Urobilinogen,Urine 0.2 EU/dl (0.2)
[2023-10-30 11:47] LABS: Squamous Epithelial Cell,Urine Occasional #/hpf (0-5)
--- NOTE | 2023-10-30 11:57 | PC.NURSE ---
pt resting in bed. no needs voiced @ this time
[2023-10-30 13:00] VITALS: BP 144/69; PULSE 70; O2SAT 100
--- NOTE | 2023-10-30 13:10 | PC.NURSE ---
PT ASSISTED TO BR
--- NOTE | 2023-10-30 13:25 | PC.NURSE ---
pt tolerating po intake well.
--- NOTE | 2023-10-30 13:32 | PC.NURSE ---
DR GUZMÁN AT BEDSIDE, PT PROVIDED WARM BLANKET
--- NOTE | 2023-10-30 13:43 | CT_ITS ---
PROCEDURE INFORMATION: Exam: CT Abdomen And Pelvis With Contrast Exam date and time: 10/30/2023 2:25 PM Age: 72 years old Clinical indication: Abdominal pain; Epigastric; Additional info: Abd pain, epigastric TECHNIQUE: Imaging protocol: Computed tomography of the abdomen and pelvis with contrast. Radiation optimization: All CT scans at this facility use at least one of these dose optimization techniques: automated exposure control; mA and/or kV adjustment per patient size (includes targeted exams where dose is matched to clinical indication); or iterative reconstruction. Contrast material: ISOVUE; Contrast volume: 75 ml; Contrast route: IV; COMPARISON: CT ABDOMEN PELVIS WO CON 09/28/2023 7:52 AM FINDINGS: Lungs: calcified granuloma left lower lobe Diaphragm: Small-moderate hiatal hernia Liver: Partially enhancing hypodense masses 1 of which contains calcifications , subcapsular region right lobe of the liver. Probable hemangiomas. Gallbladder and bile ducts: Gallbladder unremarkable Pancreas: Pancreatic atrophy unchanged Spleen: The spleen is unremarkable. Adrenal glands: Normal. No mass. Kidneys and ureters: Normal. No hydronephrosis. Stomach and bowel: Colonic diverticulosis. No evidence of diverticulitis. Appendix: No evidence of appendicitis. Intraperitoneal space: Unremarkable. No free air. No significant fluid collection. Vasculature: Scattered regions of atherosclerotic vascular calcification within the abdominal aorta and common iliac arteries. Lymph nodes: Unremarkable. No enlarged lymph nodes. Urinary bladder: Unremarkable as visualized. Reproductive: Hysterectomy Bones/joints: Lumbar spondylosis with multilevel disc degeneration. Soft tissues: Unremarkable. IMPRESSION: 1. Partially enhancing hypodense masses 1 of which contains calcifications , subcapsular region right lobe of the liver. Probable hemangiomas. 2. No evidence of acute abnormality.
[2023-10-30 13:51] LABS: Chloride 98 mmol/L (98-107)
[2023-10-30 13:52] LABS: Sodium 132 mmol/L (136-145)
[2023-10-30 13:54] LABS: Alanine Aminotransferase 19 U/L (12-78); Aspartate Amino Transferase 25 U/L (14-36); Blood Urea Nitrogen 17 mg/dl (7-17); Creatinine Clearance Estimated 41 mL/min (50-200); Estimated Glomerular Filt Rate 82 ml/min (>60); GFR (African American) 99 ML/MIN (>60)
[2023-10-30 13:55] LABS: Albumin Level 4.4 g/dl (3.5-5.0); Alkaline Phosphatase 64 U/L (38-126); Bilirubin,Total 0.6 mg/dl (0.2-1.3); Calcium 9.8 mg/dl (8.4-10.2); Carbon Dioxide 28 mmol/L (22.0-30.0); Globulin 2.2 g/dL (1.3-3.2); Glucose 130 mg/dl (74-100); Lipase 131 U/L (23-300); Total Protein,Serum 6.6 g/dl (6.3-8.2)
[2023-10-30] MEDS: LACTATED RINGERS 1000ML 1,000 ML 999 ML IV (14:00)
[2023-10-30] MEDS: ACETAMINOPHEN 1,000MG/100ML VIAL 1000 MG IV (14:00)
--- NOTE | 2023-10-30 14:28 | PC.NURSE ---
PT RETURNED FROM CT
[2023-10-30 14:30] LABS: Basophils % 0.7 % (0.1-2.0); Eosinophils % 0.5 % (0.1-12.0); Hemoglobin 10.8 g/dL (12.2-16.2); Lymphocytes # 1.2 K/mm3 (0.7-4.5); Lymphocytes % 21.4 % (10-50); Mean Corpuscular HGB Conc 31.7 g/dL (31.8-35.4); Mean Platelet Volume 8.4 fl (7.4-10.4); Monocytes # 0.4 K/mm3 (0.1-1.0); Monocytes % 6.5 % (1.7-9.3); Neutrophils # 3.9 K/mm3 (1.8-7.8); Neutrophils % 70.9 % (37.0-80.0); Platelet Count 216 K/mm3 (142-424); Red Blood Count 3.27 M/mm3 (4.20-5.40); Red Cell Distribution Width 15.6 % (11.5-17.5); White Blood Count 5.6 K/mm3 (4.8-10.8)
[2023-10-30] MEDS: IOPAMIDOL-370 (76%);100ML BOTTLE 75 ML IV (14:32)
[2023-10-30] MEDS: SODIUM CHLORIDE 0.9% 10ML SYR (RAD ONLY) 10 ML IV (14:32)
--- NOTE | 2023-10-30 14:41 | ED_ITS ---
Discharge Plan Disposition Patient Disposition: Home, Self-Care Condition: Good Prescriptions Prescriptions: No Action venlafaxine 37.5 mg tablet 37.5 mg PO BID metformin 500 mg tablet 500 mg PO BID quetiapine [Seroquel] 50 mg tablet 50 mg PO HS metoprolol succinate 50 mg tablet extended release 24 hr See Rx Instructions .ROUTE .COMPLEX Qty: 90 3RF Dose Instruction: TAKE ONE TABLET BY MOUTH ONCE A DAY FOR HIGH BLOOD PRESSURE Rx Instructions: TAKE ONE TABLET BY MOUTH ONCE A DAY FOR HIGH BLOOD PRESSURE acetaminophen [Pain Relief ES (acetaminophen)] 500 mg tablet 500 - 1,000 mg PO Q6HP PRN (Reason: Pain) clopidogrel [Plavix] 75 mg tablet 75 mg PO DAILY meclizine 12.5 mg tablet 12.5 mg PO DAILYP PRN (Reason: Dizziness Or Vertigo) sennosides-docusate sodium [Stool Softener-Stimulant Laxat] 8.6-50 mg Tablet 1 tab PO DAILY PRN (Reason: Constipation) Qty: 0 0RF diazepam 2 mg tablet 2 mg PO TID PRN (Reason: Anxiety) 30 Days Qty: 90 0RF alendronate 70 mg tablet 70 mg PO WEEKLY Rx Instructions: Take on omeprazole 20 mg capsule,delayed release(DR/EC) 20 mg PO DAILY calcium carbonate-vitamin D3 500 mg-2.5 mcg (100 unit) tablet,chewable 1 tab PO BID cholecalciferol (vitamin D3) 50 mcg (2,000 unit) tablet 2,000 unit PO DAILY atorvastatin 40 mg tablet 40 mg PO DAILY lisinopril 20 mg tablet 20 mg PO DAILY Hold Instructions: pending follow-up with PCP and recheck of potassium levels isosorbide mononitrate 30 mg tablet extended release 24 hr 30 mg PO DAILY famotidine 20 mg tablet 20 mg PO DAILY aspirin 81 mg tablet,chewable 81 mg PO DAILY gabapentin 100 mg capsule 200 mg PO HS Referrals Follow up/Referrals: Provider,Referral, MD [Primary Care Provider] - See instructions Activity Restrictions/Add. Instructions Additional Instructions/Restrictions: You were evaluated in the emergency department today. Please follow-up closely with your primary care provider. At this time, we have exhausted her ability to workup your chronic abdominal pain in the emergency department, so I do feel that you would benefit from very close follow-up for further evaluation and management on an outpatient basis. They can order other tests that we are not able to get here. Return to the emergency department for new or worsening symptoms. Clinical Impressions Clinical Impression: Hemangioma of liver Instructions Patient Instructions: DI for Acute Abdominal Pain, DI for Chronic Pain -- Adult Discharge ED Provider: Glenys Hassan General Adult HPI General Chief complaint: Abdominal Pain Stated complaint: Abd Pain Time Seen by Provider: 10/30/23 11:19 Mode of Arrival: EMS Source of Information: Patient and EMS Limitations: No Limitations Description of Symptoms (Recalled from ER Triage Doc. by RN): abdominal pain. no n/v/d History of Present Illness HPI narrative: This patient is a 72-year-old female who is well-known to the emergency department with a history of dysphagia, diabetes, hypertension, hyperlipidemia, CAD status post CABG, and chronic abdominal pain presenting to the emergency department for continuance of her chronic abdominal pain. She denies any new associated symptoms or new features. She states that it has just been hurting despite being evaluated here. She has not followed up with her primary care provider as instructed since her last ED visit 2 days ago for similar symptoms. She has had multiple negative workups here in the past. She denies any associated fevers, chills, chest pain, shortness of breath, vomiting, changes in bowel movements, or other concerns. She notes that it hurts up where her liver is. She is requesting to have a CT scan with contrast done because she states she just wants to get checked out. Related Data Home Medications Medication Instructions Recorded Confirmed venlafaxine 37.5 mg tablet 37.5 mg PO BID mood 07/26/17 10/05/23 metformin 500 mg tablet 500 mg PO BID 05/13/18 10/05/23 quetiapine 50 mg tablet (Seroquel) 50 mg PO HS 12/13/18 10/05/23 acetaminophen 500 mg tablet (Pain 500 - 1,000 mg PO Q6HP PRN Pain 09/24/22 10/05/23 Relief Extra Strength (acetaminophen)) clopidogrel 75 mg tablet (Plavix) 75 mg PO DAILY 02/27/23 10/05/23 meclizine 12.5 mg tablet 12.5 mg PO DAILYP PRN Dizziness Or 02/28/23 10/05/23 Vertigo alendronate 70 mg tablet 70 mg PO WEEKLY 07/21/23 10/05/23 aspirin 81 mg chewable tablet 81 mg PO DAILY 07/21/23 10/05/23 atorvastatin 40 mg tablet 40 mg PO DAILY 07/21/23 10/05/23 calcium carbonate 500 mg-vitamin 1 tab PO BID 07/21/23 10/05/23 D3 2.5 mcg (100 unit) chewable tablet cholecalciferol (vitamin D3) 50 2,000 unit PO DAILY 07/21/23 10/05/23 mcg (2,000 unit) tablet famotidine 20 mg tablet 20 mg PO DAILY 07/21/23 10/05/23 gabapentin 100 mg capsule 200 mg PO HS 07/21/23 10/05/23 isosorbide mononitrate 30 mg 30 mg PO DAILY 07/21/23 10/05/23 tablet,extended release 24 hr lisinopril 20 mg tablet 20 mg PO DAILY 07/21/23 10/05/23 omeprazole 20 mg capsule,delayed 20 mg PO DAILY 07/21/23 10/05/23 release Previous Rx's Medication Instructions Recorded diazepam 2 mg tablet 2 mg PO TID PRN Anxiety 30 days 03/03/23 #90 tabs sennosides 8.6 mg-docusate sodium 1 tab PO DAILY PRN Constipation #0 03/03/23 50 mg tablet (Stool tabs Softener-Stimulant Laxative) metoprolol succinate 50 mg See Rx Instructions .Route 10/11/23 tablet,extended release 24 hr .COMPLEX #90 tabs Allergies Allergy/AdvReac Type Severity Reaction Status Date / Time codeine [CODEINE] Allergy Unknown WEAK Verified 10/06/23 07:45 hydrochlorothiazide Allergy Unknown I-RASH Verified 10/06/23 07:45 [HYDROCHLOROTHIAZIDE] hydrocodone [HYDROCODONE] Allergy Unknown I-RASH Verified 10/06/23 07:45 metoclopramide Allergy Unknown SLURRED Verified 10/06/23 07:45 [METOCLOPRAMIDE] SPEECH, WEAK nifedipine [NIFEDIPINE] Allergy Unknown I-HIVES Verified 10/06/23 07:45 prazosin [PRAZOSIN] Allergy Unknown ITCHING/WEA Verified 10/06/23 07:45 K triamterene [TRIAMTERENE] Allergy Unknown I-RASH Verified 10/06/23 07:45 PFSH PFS Disclaimer: The information contained in this section may have been updated after the patient was seen, as this information can be updated by other users. Medical History Esophageal thickening Esophageal thickening Femur fracture, left History of left heart catheterization Coronary artery disease Carotid artery stenosis Surgical History History of permanent cardiac pacemaker placement S/P CABG x 1 Status post aortic valve replacement with bioprosthetic valve Family History Other Family history of cancer Family history of diabetes mellitus type II Family history of hypertension Family history of myocardial infarction Social History Smoking Status: Never smoker second hand exposure: Yes alcohol intake: never substance use type: denies use current occupational status: retired Travel in the last 8 weeks: None household members: none housing: apartment lives independently: Yes marital status: single education level: middle school service: No halfway: No current occupational exposures/hazards: No caffeine: Yes do you feel safe at home: Yes victim of physical abuse: No victim of emotional abuse: No victim of sexual abuse: No would you like helpful sources: No ROS Obtained: Yes All systems reviewed & no additional complaints except as documented Physical Exam General General appearance: alert and in no apparent distress Head Head exam: atraumatic and normocephalic Eye Eye exam: Present normal appearance, PERRL and EOMI ENT ENT exam: Present normal exam, normal oropharynx, mucous membranes moist and normal external ear exam Neck Neck exam: Present normal inspection, full ROM and trachea midline; Absent tenderness Chest Chest inspection: Present normal inspection and symmetric chest wall rise; Absent tenderness Respiratory Respiratory exam: Present normal lung sounds bilaterally; Absent respiratory distress, wheezes, stridor or accessory muscle use Cardiovascular Cardiovascular exam: Present regular rate and normal rhythm Abdominal Exam Abdominal exam: Present soft; Absent distention, tenderness or guarding Extremities Exam Extremities exam: Present normal inspection, full ROM and normal capillary refill; Absent tenderness or edema Back Exam Back exam: Present normal inspection and full ROM; Absent tenderness Neurological Exam Neurological exam: Present alert, oriented X3, CN II-XII intact and normal gait; Absent motor sensory deficit Psychiatric Psychiatric exam: Present normal affect and normal mood Skin Skin exam: Present warm and dry Medical Decision Making Medical Records Medical records reviewed: Yes I reviewed the patient's medical records. Chet Inquiry Pt receiving controlled substance: No Vital Signs: 10/30/23 10:57 10/30/23 11:05 10/30/23 13:00 Temperature 97.7 F Temperature Source Oral Pulse Rate 70 70 Pulse Rate [Left] 77 Respiratory Rate 16 18 Blood Pressure 151/76 H 144/69 H Blood Pressure [Left Arm] 151/76 H Blood Pressure Mean 101 84 Blood Pressure Mean [Left Arm] 101 Blood Pressure Source 02 Sat by Pulse Oximetry 96 100 100 Oxygen Delivery Method Room Air 10/30/23 15:35 Temperature 97.7 F Temperature Source Oral Pulse Rate 66 Pulse Rate [Left] Respiratory Rate 16 Blood Pressure 137/64 Blood Pressure [Left Arm] Blood Pressure Mean Blood Pressure Mean [Left Arm] Blood Pressure Source Automatic Cuff 02 Sat by Pulse Oximetry Oxygen Delivery Method Room Air Lab Data Lab results reviewed: Yes I reviewed the patient's lab results. Lab Results 10/30/23 11:00: WBC 5.6, RBC 3.27 L, Hgb 10.8 L, Hct 34.0 L, MCV 104.0 H, MCH 33.0 H, MCHC 31.7 L, RDW 15.6, Plt Count 216, MPV 8.4, Neut % (Auto) 70.9, Lymph % (Auto) 21.4, [place] % (Auto) 6.5, Eos % (Auto) 0.5, Baso % (Auto) 0.7, Neut # (Auto) 3.9, Lymph # (Auto) 1.2, [place] # (Auto) 0.4, Eos # (Auto) 0.0, Baso # (Auto) 0.0, Sodium 132 L, Potassium 5.0, Chloride 98, Carbon Dioxide 28, Anion Gap 11.0, BUN 17, Creatinine 0.70, Estimated Creat Clear 41, Estimated GFR 82, Est GFR ( Amer) 99, Glucose 130 H, Calcium 9.8, Total Bilirubin 0.6, AST 25, ALT 19, Alkaline Phosphatase 64, Total Protein 6.6, Albumin 4.4, Globulin 2.2, Albumin/Globulin Ratio 2.0 H, Lipase 131, Urine Color Yellow, Urine Appearance Clear, Urine pH 6.0, Ur Specific [place] <= 1.005, Urine Protein Negative, Urine Glucose (UA) Negative, Urine Ketones Negative, Urine Blood Negative, Urine Nitrate Negative, Urine Bilirubin Negative, Urine Urobilinogen 0.2, Ur Leukocyte Esterase Negative, Urine RBC None, Urine WBC None, Ur Squamous Epith Cells Occasional, Urine Bacteria None 10/30/23 11:00 10/30/23 11:00 Orders (Tests/Meds): ED MEDICATIONS Discontinued Medications Generic Name Dose Route Start Last Admin Trade Name Freq PRN Reason Stop Dose Admin Acetaminophen 1,000 mg 10/30/23 13:43 10/30/23 14:00 Acetaminophen 1,000mg/100ml Vial IV 10/30/23 13:44 1,000 mg ONCE ONE Administration Lactated Ringer's 1,000 mls @ 999 mls/hr 10/30/23 13:43 10/30/23 14:00 Lactated Ringer's 1000 Ml Bag IV 10/30/23 14:43 999 mls/hr .Q1H1M ONE Administration Iopamidol 75 ml 10/30/23 14:30 10/30/23 14:32 Iopamidol-370 (76%);100ml Bottle IV 10/30/23 14:31 75 ml ONCE ONE Administration Sodium Chloride 10 ml 10/30/23 14:30 10/30/23 14:32 Sodium Chloride 0.9% 10ml Syr (Rad Only) IV 10/30/23 14:31 10 ml ONCE ONE Administration ORDERS Category Date Time Status CT abdomen pelvis w con Stat Cat Scan 10/30/23 13:43 Completed Complete Blood Count Auto Diff Stat Lab 10/30/23 11:00 Completed Comprehensive Metabolic Panel Stat Lab 10/30/23 11:00 Completed Lipase Stat Lab 10/30/23 11:00 Completed UA [Urinalysis and Microscopic] Stat Lab 10/30/23 11:00 Completed Medical Decision Narrative: In summary, this patient is a 72-year-old female presenting to the Emergency Department for evaluation of chronic abdominal pain. Differential diagnoses considered include but are not limited to functional abdominal pain, ischemic colitis, constipation, gastroenteritis. Ruling out the most morbid conditions drove assessment. On exam, the patient is well-appearing. She is at her baseline and has no new features with regards to her chronic abdominal pain that she has been evaluated here for multiple times. She has benign abdominal exam and normal vital signs on cardiac telemetry. I had a long discussion with her regarding the fact that I do not feel that labs or CT scan here are likely to reveal any new findings since she has had several negative workups with similar symptoms in the past. She remains adamant that she wants a CT scan with IV contrast, and became tearful and agitated at attempts and telling her that she really needs to follow-up closely outpatient for further testing that we unfortunately cannot do here in the ED. Ultimately after multiple discussions to no avail, I did order CT scan of the abdomen pelvis with IV contrast as well as CBC, CMP, and lipase. Labs are reassuring. Urinalysis was also obtained and is not concerning for infection. I independently interpreted CT scans prior to radiology read and noted no significant changes. She has liver hemangiomas that are chronic. I notified patient of this and advised that she follow-up very closely outpatient for further evaluation and management. Patient was deemed to be appropriate for discharge and was given strict return precautions. Patient was discharged after all questions were answered. Critical Care Critical Care Time Critical Care Time: No
[2023-10-30 15:35] VITALS: BP 137/64; PULSE 66; RESP 16; TEMP 36.5; O2SAT 98
== END 2023-10-30 15:36 | disposition home or self-care (01) ==
PROVIDERS: Emergency Provider Emergency Medicine
DX: R10.9 Unspecified abdominal pain (principal); D18.03 Hemangioma of intra-abdominal structures; E87.1 Hypo-osmolality and hyponatremia; E11.9 Type 2 diabetes mellitus without complications; E78.5 Hyperlipidemia, unspecified; I11.9 Hypertensive heart disease without heart failure; I25.10 Atherosclerotic heart disease of native coronary artery without angina pectoris; I65.29 Occlusion and stenosis of unspecified carotid artery; Z79.01 Long term (current) use of anticoagulants; Z79.84 Long term (current) use of oral hypoglycemic drugs; Z95.1 Presence of aortocoronary bypass graft; Z95.0 Presence of cardiac pacemaker
CPT/HCPCS: 74177; 80053; 81001; 83690; 85025; 96361; 96374; 99284; J0131; Q9967

== ENCOUNTER 2023-11-03 12:40 | Emergency (ER) | payer MEDICARE, SELFPAY ==
[2023-11-03 12:41] VITALS: BP 154/73; PULSE 76; RESP 18; TEMP 36.6; O2SAT 96; BMI 22.6
[2023-11-03 12:59] LABS: Microscopic, Urine URINE MICROSCOPIC (MICROSCOPIC)
[2023-11-03 13:06] LABS: Appearance,Urine CLEAR (Clear); Bilirubin,Urine Negative (Negative); Blood, Urine TRACE-I (Negative); Glucose,Urine (UA) Negative (Negative); Ketones,Urine Negative (Negative); Leukocyte Esterase,Urine Negative (Negative); Nitrate,Urine Negative (Negative); PH,Urine 6.5 (5.0-8.5); Protein,Urine Negative (Negative); Specific Gravity, Urine <= 1.005 (1.005-1.030); Urobilinogen,Urine 0.2 EU/dl (0.2)
[2023-11-03 13:07] LABS: Color,Urine Straw (Yellow)
[2023-11-03 13:39] LABS: Bacteria,Urine Trace /lpf; RBC,Urine Occasional #/hpf (0-3); WBC,Urine Occasional #/hpf (0-3)
--- NOTE | 2023-11-03 14:08 | [facility].EDGENADL ---
Discharge Plan Disposition Patient Disposition: Home, Self-Care Condition: Good Prescriptions Prescriptions: No Action venlafaxine 37.5 mg tablet 37.5 mg PO BID metformin 500 mg tablet 500 mg PO BID quetiapine [Seroquel] 50 mg tablet 50 mg PO HS metoprolol succinate 50 mg tablet extended release 24 hr See Rx Instructions .ROUTE .COMPLEX Qty: 90 3RF Dose Instruction: TAKE ONE TABLET BY MOUTH ONCE A DAY FOR HIGH BLOOD PRESSURE Rx Instructions: TAKE ONE TABLET BY MOUTH ONCE A DAY FOR HIGH BLOOD PRESSURE acetaminophen [Pain Relief ES (acetaminophen)] 500 mg tablet 500 - 1,000 mg PO Q6HP PRN (Reason: Pain) clopidogrel [Plavix] 75 mg tablet 75 mg PO DAILY meclizine 12.5 mg tablet 12.5 mg PO DAILYP PRN (Reason: Dizziness Or Vertigo) sennosides-docusate sodium [Stool Softener-Stimulant Laxat] 8.6-50 mg Tablet 1 tab PO DAILY PRN (Reason: Constipation) Qty: 0 0RF diazepam 2 mg tablet 2 mg PO TID PRN (Reason: Anxiety) 30 Days Qty: 90 0RF alendronate 70 mg tablet 70 mg PO WEEKLY Rx Instructions: Take on omeprazole 20 mg capsule,delayed release(DR/EC) 20 mg PO DAILY calcium carbonate-vitamin D3 500 mg-2.5 mcg (100 unit) tablet,chewable 1 tab PO BID cholecalciferol (vitamin D3) 50 mcg (2,000 unit) tablet 2,000 unit PO DAILY atorvastatin 40 mg tablet 40 mg PO DAILY lisinopril 20 mg tablet 20 mg PO DAILY Hold Instructions: pending follow-up with PCP and recheck of potassium levels isosorbide mononitrate 30 mg tablet extended release 24 hr 30 mg PO DAILY famotidine 20 mg tablet 20 mg PO DAILY aspirin 81 mg tablet,chewable 81 mg PO DAILY gabapentin 100 mg capsule 200 mg PO HS Referrals Follow up/Referrals: Hansel Ruff MD [Primary Care Provider] - See instructions Activity Restrictions/Add. Instructions Additional Instructions/Restrictions: We have established care with me with case management who is going to arrange home health for assistance. Please call and make an appointment for follow-up with your PCP. Clinical Impressions Clinical Impression: Chronic abdominal pain, Achalasia, Adult failure to thrive Instructions Patient Instructions: DI for Diarrhea and Traveler's Diarrhea -- Adult, DI for Diarrhea and Traveler's Diarrhea -- Child, DI for Nausea -- Adult, DI for Nausea -- Child Discharge ED Provider: Lennox Conrad General Adult HPI <ANJUM Pascual - Last Filed: 11/03/23 16:36> General Chief complaint: Nausea/Vomiting/Diarrhea Stated complaint: ABDOMINAL PAIN Time Seen by Provider: 11/03/23 14:08 Mode of Arrival: EMS Source of Information: Patient Limitations: No Limitations Description of Symptoms (Recalled from ER Triage Doc. by RN): Patient complaint of nausea and abdomen pain. States she took a zofran at 8am with no relief. History of Present Illness HPI narrative: Patient presents for evaluation of chronic abdominal pain. Patient has been seen 3 times this week for the same complaint and been worked up extensively for this problem in the past. Patient reports that she has epigastric abdominal pain that is recurrent and not new. She denies chest pain shortness of breath fever chills hemoptysis hematochezia melena Related Data Home Medications Medication Instructions Recorded Confirmed venlafaxine 37.5 mg tablet 37.5 mg PO BID mood 07/26/17 10/05/23 metformin 500 mg tablet 500 mg PO BID 05/13/18 10/05/23 quetiapine 50 mg tablet (Seroquel) 50 mg PO HS 12/13/18 10/05/23 acetaminophen 500 mg tablet (Pain 500 - 1,000 mg PO Q6HP PRN Pain 09/24/22 10/05/23 Relief Extra Strength (acetaminophen)) clopidogrel 75 mg tablet (Plavix) 75 mg PO DAILY 02/27/23 10/05/23 meclizine 12.5 mg tablet 12.5 mg PO DAILYP PRN Dizziness Or 02/28/23 10/05/23 Vertigo alendronate 70 mg tablet 70 mg PO WEEKLY 07/21/23 10/05/23 aspirin 81 mg chewable tablet 81 mg PO DAILY 07/21/23 10/05/23 atorvastatin 40 mg tablet 40 mg PO DAILY 07/21/23 10/05/23 calcium carbonate 500 mg-vitamin 1 tab PO BID 07/21/23 10/05/23 D3 2.5 mcg (100 unit) chewable tablet cholecalciferol (vitamin D3) 50 2,000 unit PO DAILY 07/21/23 10/05/23 mcg (2,000 unit) tablet famotidine 20 mg tablet 20 mg PO DAILY 07/21/23 10/05/23 gabapentin 100 mg capsule 200 mg PO HS 07/21/23 10/05/23 isosorbide mononitrate 30 mg 30 mg PO DAILY 07/21/23 10/05/23 tablet,extended release 24 hr lisinopril 20 mg tablet 20 mg PO DAILY 07/21/23 10/05/23 omeprazole 20 mg capsule,delayed 20 mg PO DAILY 07/21/23 10/05/23 release Previous Rx's Medication Instructions Recorded diazepam 2 mg tablet 2 mg PO TID PRN Anxiety 30 days 03/03/23 #90 tabs sennosides 8.6 mg-docusate sodium 1 tab PO DAILY PRN Constipation #0 03/03/23 50 mg tablet (Stool tabs Softener-Stimulant Laxative) metoprolol succinate 50 mg See Rx Instructions .Route 10/11/23 tablet,extended release 24 hr .COMPLEX #90 tabs Allergies Allergy/AdvReac Type Severity Reaction Status Date / Time codeine [CODEINE] Allergy Unknown WEAK Verified 10/06/23 07:45 hydrochlorothiazide Allergy Unknown I-RASH Verified 10/06/23 07:45 [HYDROCHLOROTHIAZIDE] hydrocodone [HYDROCODONE] Allergy Unknown I-RASH Verified 10/06/23 07:45 metoclopramide Allergy Unknown SLURRED Verified 10/06/23 07:45 [METOCLOPRAMIDE] SPEECH, WEAK nifedipine [NIFEDIPINE] Allergy Unknown I-HIVES Verified 10/06/23 07:45 prazosin [PRAZOSIN] Allergy Unknown ITCHING/WEA Verified 10/06/23 07:45 K triamterene [TRIAMTERENE] Allergy Unknown I-RASH Verified 10/06/23 07:45 [facility] <ANJUM Pascual - Last Filed: 11/03/23 16:36> [facility] Disclaimer: The information contained in this section may have been updated after the patient was seen, as this information can be updated by other users. Medical History Esophageal thickening Esophageal thickening Femur fracture, left History of left heart catheterization Coronary artery disease Carotid artery stenosis Surgical History History of permanent cardiac pacemaker placement S/P CABG x 1 Status post aortic valve replacement with bioprosthetic valve Family History Other Family history of cancer Family history of diabetes mellitus type II Family history of hypertension Family history of myocardial infarction Social History Smoking Status: Never smoker second hand exposure: Yes alcohol intake: never substance use type: denies use current occupational status: retired Travel in the last 8 weeks: None household members: none housing: apartment lives independently: Yes marital status: single education level: middle school service: No mcc: No current occupational exposures/hazards: No caffeine: Yes do you feel safe at home: Yes victim of physical abuse: No victim of emotional abuse: No victim of sexual abuse: No would you like helpful sources: No <ANJUM Pascual - Last Filed: 11/03/23 16:36> ROS Obtained: Yes Systems reviewed as appropriate & no additional complaints except as documented Physical Exam <ANJUM Pascual - Last Filed: 11/03/23 16:36> General General appearance: alert and in no apparent distress Respiratory Respiratory exam: Present normal lung sounds bilaterally Cardiovascular Cardiovascular exam: Present regular rate, normal rhythm and normal heart sounds Abdominal Exam Abdominal exam: Present soft, tenderness and normal bowel sounds; Absent guarding, rebound or rigidity Back Exam Back exam: Present normal inspection and full ROM Neurological Exam Neurological exam: Present alert, oriented X3 and CN II-XII intact Psychiatric Psychiatric exam: Present normal affect and normal mood Medical Decision Making <ANJUM Pascual - Last Filed: 11/03/23 16:36> Medical Records Medical records reviewed: Yes I reviewed the patient's medical records. Chet Inquiry Pt receiving controlled substance: No Vital Signs: 11/03/23 12:41 11/03/23 16:41 Temperature 97.9 F 97.9 F Temperature Source Oral Oral Pulse Rate 74 Pulse Rate [Radial] 76 Respiratory Rate 18 20 Blood Pressure 148/87 H Blood Pressure [Right Arm] 154/73 H Blood Pressure Mean [Right Arm] 100 Blood Pressure Source [Right Arm] Automatic Cuff Blood Pressure Position [Right Arm] Sitting 02 Sat by Pulse Oximetry 96 Oxygen Delivery Method Room Air Room Air Lab Data Lab results reviewed: Yes I reviewed the patient's lab results. Lab Results 11/03/23 12:51: Urine Color Straw, Urine Appearance Clear, Urine pH 6.5, Ur Specific [place] <= 1.005, Urine Protein Negative, Urine Glucose (UA) Negative, Urine Ketones Negative, Urine Blood Trace-i, Urine Nitrate Negative, Urine Bilirubin Negative, Urine Urobilinogen 0.2, Ur Leukocyte Esterase Negative, Urine RBC Occasional, Urine WBC Occasional, Urine Bacteria Trace 11/03/23 15:40: WBC 6.9, RBC 3.46 L, Hgb 11.3 L, Hct 34.8 L, MCV 100.4 H, MCH 32.7 H, MCHC 32.6, RDW 15.5, Plt Count 254, MPV 8.0, Neut % (Auto) 78.8, Lymph % (Auto) 14.1, [place] % (Auto) 5.4, Eos % (Auto) 0.9, Baso % (Auto) 0.8, Neut # (Auto) 5.4, Lymph # (Auto) 1.0, [place] # (Auto) 0.4, Eos # (Auto) 0.1, Baso # (Auto) 0.1, Sodium 139, Potassium 4.1, Chloride 105, Carbon Dioxide 23, Anion Gap 15.1 H, BUN 14, Creatinine 0.60, Estimated Creat Clear 41, Estimated GFR 98, Est GFR ( Amer) 118, Glucose 180 H, Calcium 10.5 H, Total Bilirubin 0.5, AST 37 H, ALT 24, Alkaline Phosphatase 72, Total Protein 7.1, Albumin 4.8, Globulin 2.3, Albumin/Globulin Ratio 2.1 H, Lipase 61 11/03/23 15:40 11/03/23 15:40 Orders (Tests/Meds): ORDERS Category Date Time Status Care Management Consult [Consult to Case Management] [ Cons 11/03/23 15:33 Active CONS] Routine CBC w/Auto Diff [Complete Blood Count Auto Diff] Stat Lab 11/03/23 15:40 Completed CMP [Comprehensive Metabolic Panel] Stat Lab 11/03/23 15:40 Completed Lipase Stat Lab 11/03/23 15:40 Completed UA [Urinalysis and Microscopic] Stat Lab 11/03/23 12:51 Completed Medical Decision Narrative: In summary patient is a 72-year-old female who presents to the emergency department for evaluation of abdominal pain. Patient is hemodynamically stable upon arrival, afebrile. Physical exam is unremarkable except for subjective epigastric abdominal pain on palpation. No masses bowel sounds are normal and essentially an unchanged physical exam from my last exam on Wednesday. Differential diagnosis includes chronic pain, achalasia, failure to thrive. Patient has no new physical or constitutional complaints that lead to suggested other cause besides her already established well-known well worked up achalasia and chronic abdominal pain. Patient has not followed up with her PCP this week but has presented to the ER instead multiple times. Patient has no social support, lives alone and all of them family members are distant from her. We have previously made a referral to palliative care although I do not know what the results or if the patient was receptive to that. Patient seems to lack considerable insight into her medical condition. To that end we consulted case management to come and discussed with the patient her potential options. Case management has made arrangements for home health assistance for the patient and patient verbalized agreement and understanding and will be discharged home with further follow-up with home health. <Carrington Case MD - Last Filed: 11/03/23 18:52> Vital Signs: 11/03/23 12:41 11/03/23 16:41 Temperature 97.9 F 97.9 F Temperature Source Oral Oral Pulse Rate 74 Pulse Rate [Radial] 76 Respiratory Rate 18 20 Blood Pressure 148/87 H Blood Pressure [Right Arm] 154/73 H Blood Pressure Mean [Right Arm] 100 Blood Pressure Source [Right Arm] Automatic Cuff Blood Pressure Position [Right Arm] Sitting 02 Sat by Pulse Oximetry 96 Oxygen Delivery Method Room Air Room Air Lab Data Lab Results 11/03/23 12:51: Urine Color Straw, Urine Appearance Clear, Urine pH 6.5, Ur Specific [place] <= 1.005, Urine Protein Negative, Urine Glucose (UA) Negative, Urine Ketones Negative, Urine Blood Trace-i, Urine Nitrate Negative, Urine Bilirubin Negative, Urine Urobilinogen 0.2, Ur Leukocyte Esterase Negative, Urine RBC Occasional, Urine WBC Occasional, Urine Bacteria Trace 11/03/23 15:40: WBC 6.9, RBC 3.46 L, Hgb 11.3 L, Hct 34.8 L, MCV 100.4 H, MCH 32.7 H, MCHC 32.6, RDW 15.5, Plt Count 254, MPV 8.0, Neut % (Auto) 78.8, Lymph % (Auto) 14.1, [place] % (Auto) 5.4, Eos % (Auto) 0.9, Baso % (Auto) 0.8, Neut # (Auto) 5.4, Lymph # (Auto) 1.0, [place] # (Auto) 0.4, Eos # (Auto) 0.1, Baso # (Auto) 0.1, Sodium 139, Potassium 4.1, Chloride 105, Carbon Dioxide 23, Anion Gap 15.1 H, BUN 14, Creatinine 0.60, Estimated Creat Clear 41, Estimated GFR 98, Est GFR ( Amer) 118, Glucose 180 H, Calcium 10.5 H, Total Bilirubin 0.5, AST 37 H, ALT 24, Alkaline Phosphatase 72, Total Protein 7.1, Albumin 4.8, Globulin 2.3, Albumin/Globulin Ratio 2.1 H, Lipase 61 Orders (Tests/Meds): ORDERS Category Date Time Status Care Management Consult [Consult to Case Management] [ Cons 11/03/23 15:33 Active CONS] Routine CBC w/Auto Diff [Complete Blood Count Auto Diff] Stat Lab 11/03/23 15:40 Completed CMP [Comprehensive Metabolic Panel] Stat Lab 11/03/23 15:40 Completed Lipase Stat Lab 11/03/23 15:40 Completed UA [Urinalysis and Microscopic] Stat Lab 11/03/23 12:51 Completed Medical Decision Narrative: In summary patient is a 72-year-old female who presents to the emergency department for evaluation of abdominal pain. Patient is hemodynamically stable upon arrival, afebrile. Physical exam is unremarkable except for subjective epigastric abdominal pain on palpation. No masses bowel sounds are normal and essentially an unchanged physical exam from my last exam on Wednesday. Differential diagnosis includes chronic pain, achalasia, failure to thrive. Patient has no new physical or constitutional complaints that lead to suggested other cause besides her already established well-known well worked up achalasia and chronic abdominal pain. Patient has not followed up with her PCP this week but has presented to the ER instead multiple times. Patient has no social support, lives alone and all of them family members are distant from her. We have previously made a referral to palliative care although I do not know what the results or if the patient was receptive to that. Patient seems to lack considerable insight into her medical condition. To that end we consulted case management to come and discussed with the patient her potential options. Case management has made arrangements for home health assistance for the patient and patient verbalized agreement and understanding and will be discharged home with further follow-up with home health. <Lennox Conrad MD - Last Filed: 11/03/23 22:12> Vital Signs: 11/03/23 12:41 11/03/23 16:41 Temperature 97.9 F 97.9 F Temperature Source Oral Oral Pulse Rate 74 Pulse Rate [Radial] 76 Respiratory Rate 18 20 Blood Pressure 148/87 H Blood Pressure [Right Arm] 154/73 H Blood Pressure Mean [Right Arm] 100 Blood Pressure Source [Right Arm] Automatic Cuff Blood Pressure Position [Right Arm] Sitting 02 Sat by Pulse Oximetry 96 Oxygen Delivery Method Room Air Room Air Lab Data Lab Results 11/03/23 12:51: Urine Color Straw, Urine Appearance Clear, Urine pH 6.5, Ur Specific [place] <= 1.005, Urine Protein Negative, Urine Glucose (UA) Negative, Urine Ketones Negative, Urine Blood Trace-i, Urine Nitrate Negative, Urine Bilirubin Negative, Urine Urobilinogen 0.2, Ur Leukocyte Esterase Negative, Urine RBC Occasional, Urine WBC Occasional, Urine Bacteria Trace 11/03/23 15:40: WBC 6.9, RBC 3.46 L, Hgb 11.3 L, Hct 34.8 L, MCV 100.4 H, MCH 32.7 H, MCHC 32.6, RDW 15.5, Plt Count 254, MPV 8.0, Neut % (Auto) 78.8, Lymph % (Auto) 14.1, [place] % (Auto) 5.4, Eos % (Auto) 0.9, Baso % (Auto) 0.8, Neut # (Auto) 5.4, Lymph # (Auto) 1.0, [place] # (Auto) 0.4, Eos # (Auto) 0.1, Baso # (Auto) 0.1, Sodium 139, Potassium 4.1, Chloride 105, Carbon Dioxide 23, Anion Gap 15.1 H, BUN 14, Creatinine 0.60, Estimated Creat Clear 41, Estimated GFR 98, Est GFR ( Amer) 118, Glucose 180 H, Calcium 10.5 H, Total Bilirubin 0.5, AST 37 H, ALT 24, Alkaline Phosphatase 72, Total Protein 7.1, Albumin 4.8, Globulin 2.3, Albumin/Globulin Ratio 2.1 H, Lipase 61 Orders (Tests/Meds): ORDERS Category Date Time Status Care Management Consult [Consult to Case Management] [ Cons 11/03/23 15:33 Active CONS] Routine CBC w/Auto Diff [Complete Blood Count Auto Diff] Stat Lab 11/03/23 15:40 Completed CMP [Comprehensive Metabolic Panel] Stat Lab 11/03/23 15:40 Completed Lipase Stat Lab 11/03/23 15:40 Completed UA [Urinalysis and Microscopic] Stat Lab 11/03/23 12:51 Completed Medical Decision Narrative: In summary patient is a 72-year-old female who presents to the emergency department for evaluation of abdominal pain. Patient is hemodynamically stable upon arrival, afebrile. Physical exam is unremarkable except for subjective epigastric abdominal pain on palpation. No masses bowel sounds are normal and essentially an unchanged physical exam from my last exam on Wednesday. Differential diagnosis includes chronic pain, achalasia, failure to thrive. Patient has no new physical or constitutional complaints that lead to suggested other cause besides her already established well-known well worked up achalasia and chronic abdominal pain. Patient has not followed up with her PCP this week but has presented to the ER instead multiple times. Patient has no social support, lives alone and all of them family members are distant from her. We have previously made a referral to palliative care although I do not know what the results or if the patient was receptive to that. Patient seems to lack considerable insight into her medical condition. To that end we consulted case management to come and discussed with the patient her potential options. Case management has made arrangements for home health assistance for the patient and patient verbalized agreement and understanding and will be discharged home with further follow-up with home health. Because patient at baseline without signs or symptoms of clinical decompensation, deemed appropriate for discharge. Results were relayed to patient who voiced understanding and were agreeable to outpatient management and follow up. I discussed my clinical impression with patient and answered all questions. At this time, the evidence for any other entities in the differential is insufficient to warrant any further testing or ED observation. This was explained as well. Advisory was given that persistent or worsening symptoms require further evaluation. I confirmed the understanding of this discussion. I was consulted by the [place], and we discussed the complexity of the problems being addressed. I approved the treatment and management plan for this patient?s care in the Emergency Department, thus performing a substantive portion of the medical decision making. Lennox Conrad MD Critical Care <ANJUM Pascual - Last Filed: 11/03/23 16:36> Critical Care Time Critical Care Time: No
--- NOTE | 2023-11-03 15:33 | PC.NURSE ---
SPOKE WITH CARE MANAGEMENT, FREDDIE NOTIFIED
[2023-11-03 16:11] LABS: Basophils # 0.1 K/mm3 (0-0.2); Basophils % 0.8 % (0.1-2.0); Eosinophils # 0.1 K/mm3 (0.0-0.4); Eosinophils % 0.9 % (0.1-12.0); Hematocrit 34.8 % (37.0-47.0); Hemoglobin 11.3 g/dL (12.2-16.2); Lymphocytes % 14.1 % (10-50); Mean Corpuscular HGB Conc 32.6 g/dL (31.8-35.4); Mean Corpuscular Hemoglobin 32.7 pg (27.0-31.2); Mean Corpuscular Volume 100.4 fl (81-99); Monocytes # 0.4 K/mm3 (0.1-1.0); Monocytes % 5.4 % (1.7-9.3); Neutrophils # 5.4 K/mm3 (1.8-7.8); Neutrophils % 78.8 % (37.0-80.0); Platelet Count 254 K/mm3 (142-424); Red Blood Count 3.46 M/mm3 (4.20-5.40); Red Cell Distribution Width 15.5 % (11.5-17.5); White Blood Count 6.9 K/mm3 (4.8-10.8)
[2023-11-03 16:21] LABS: Alanine Aminotransferase 24 U/L (12-78); Albumin Level 4.8 g/dl (3.5-5.0); Albumin/Globulin Ratio 2.1 (1.1-1.8); Alkaline Phosphatase 72 U/L (38-126); Anion Gap 15.1 mEq/L (5-15); Aspartate Amino Transferase 37 U/L (14-36); Bilirubin,Total 0.5 mg/dl (0.2-1.3); Blood Urea Nitrogen 14 mg/dl (7-17); Calcium 10.5 mg/dl (8.4-10.2); Carbon Dioxide 23 mmol/L (22.0-30.0); Chloride 105 mmol/L (98-107); Creatinine Clearance Estimated 41 mL/min (50-200); Estimated Glomerular Filt Rate 98 ml/min (>60); GFR (African American) 118 ML/MIN (>60); Globulin 2.3 g/dL (1.3-3.2); Glucose 180 mg/dl (74-100); Lipase 61 U/L (23-300); Potassium 4.1 mmoL/L (3.5-5.1); Sodium 139 mmol/L (136-145); Total Protein,Serum 7.1 g/dl (6.3-8.2)
--- NOTE | 2023-11-03 16:28 | CARE MANAGER ---
Addendum entered by Zuly Carrero RN 11/12/23 14:56: [facility] called back and stated PCP did not see a need for home health and that they have referred her to a counselor. Addendum entered by Zuly Carrero RN 11/04/23 09:45: Jojo from [facility] states they will be able to see this patient and initiate care. Original Note: Received call from ER related to patient's frequent ER visits and need for more resources at home or possible placement. Spoke with patient who states she does well at home with her own laundry, bathing, etc. She has been to the ER due to what sounds like abdominal pain. We discussed different options, home health, placement, [facility]. Patient did walk in hallway with this nurse and did well with no assistive devices. She agreed to home health with [facility], but will be ok with whoever if [facility] cannot see her. She wants to think about [facility] and does not want me to send the information there currently. Will fax information to [facility]. patient also needed ride home and contacted [facility] to take her home. EDDA Chirinos
[2023-11-03 16:41] VITALS: BP 148/87; PULSE 74; RESP 20; TEMP 36.6; O2SAT 97
== END 2023-11-03 16:42 | disposition home or self-care (01) ==
PROVIDERS: Emergency Medicine; Emergency Provider Emergency Medicine; PCP Internal Medicine
DX: R10.13 Epigastric pain (principal); G89.29 Other chronic pain; K22.0 Achalasia of cardia; R62.7 Adult failure to thrive
CPT/HCPCS: 36415; 80053; 81001; 83690; 85025; 99283

== ENCOUNTER 2023-11-06 13:02 | Emergency (ER) | payer MEDICARE, SELFPAY ==
[2023-11-06 13:02] VITALS: BP 126/76; PULSE 73; RESP 18; TEMP 36.5; O2SAT 98; BMI 22.6
--- NOTE | 2023-11-06 13:20 | HMH.EDGENADL ---
Discharge Plan Disposition Patient Disposition: Home, Self-Care Prescriptions Prescriptions: No Action venlafaxine 37.5 mg tablet 37.5 mg PO BID metformin 500 mg tablet 500 mg PO BID quetiapine [Seroquel] 50 mg tablet 50 mg PO HS metoprolol succinate 50 mg tablet extended release 24 hr See Rx Instructions .ROUTE .COMPLEX Qty: 90 3RF Dose Instruction: TAKE ONE TABLET BY MOUTH ONCE A DAY FOR HIGH BLOOD PRESSURE Rx Instructions: TAKE ONE TABLET BY MOUTH ONCE A DAY FOR HIGH BLOOD PRESSURE acetaminophen [Pain Relief ES (acetaminophen)] 500 mg tablet 500 - 1,000 mg PO Q6HP PRN (Reason: Pain) clopidogrel [Plavix] 75 mg tablet 75 mg PO DAILY meclizine 12.5 mg tablet 12.5 mg PO DAILYP PRN (Reason: Dizziness Or Vertigo) sennosides-docusate sodium [Stool Softener-Stimulant Laxat] 8.6-50 mg Tablet 1 tab PO DAILY PRN (Reason: Constipation) Qty: 0 0RF diazepam 2 mg tablet 2 mg PO TID PRN (Reason: Anxiety) 30 Days Qty: 90 0RF alendronate 70 mg tablet 70 mg PO WEEKLY Rx Instructions: Take on omeprazole 20 mg capsule,delayed release(DR/EC) 20 mg PO DAILY calcium carbonate-vitamin D3 500 mg-2.5 mcg (100 unit) tablet,chewable 1 tab PO BID cholecalciferol (vitamin D3) 50 mcg (2,000 unit) tablet 2,000 unit PO DAILY atorvastatin 40 mg tablet 40 mg PO DAILY lisinopril 20 mg tablet 20 mg PO DAILY Hold Instructions: pending follow-up with PCP and recheck of potassium levels isosorbide mononitrate 30 mg tablet extended release 24 hr 30 mg PO DAILY famotidine 20 mg tablet 20 mg PO DAILY aspirin 81 mg tablet,chewable 81 mg PO DAILY gabapentin 100 mg capsule 200 mg PO HS Activity Restrictions/Add. Instructions Additional Instructions/Restrictions: Your symptoms are consistent with your chronic abdominal pain that has had numerous emergent evaluations without any yield of emergent pathology. Please continue to follow-up with Dr. Ruff who has been closely managing your chronic concerns. If there is any abrupt or significant change in your symptoms you may return to the emergency department. Clinical Impressions Clinical Impression: Chronic abdominal pain Instructions Patient Instructions: DI for Acute Abdominal Pain Discharge ED Provider: Karo Cadena General Adult HPI General Chief complaint: Abdominal Pain Stated complaint: abdominal pain Time Seen by Provider: 11/06/23 13:10 Mode of Arrival: EMS Source of Information: Patient and EMS Limitations: No Limitations Description of Symptoms (Recalled from ER Triage Doc. by RN): abd discomfort History of Present Illness HPI narrative: Patient is a 72-year-old female with a history of chronic abdominal pain recent diagnosis of achalasia presenting today with chronic abdominal discomfort. No new or different symptoms from a history standpoint. She states that she has not had contrasted CT scans but on chart review she has had numerous CT scans. She does have some pulmonary nodules and liver hypodensities that have been concerning for possible malignancy but on a recent ED visit her primary care was contacted and he is very aware of these have not been following them for years and the patient seems to not be fully grasping what is going on. Of note the patient usually comes to the emergency department with a neighbor or friend who cannot any longer come with her due to bedbugs. Patient's last ED visit she was seen by social work/case management and they try to arrange home health. The patient return to the emergency department today alone and tearful due to her chronic discomfort. Related Data Home Medications Medication Instructions Recorded Confirmed venlafaxine 37.5 mg tablet 37.5 mg PO BID mood 07/26/17 10/05/23 metformin 500 mg tablet 500 mg PO BID 05/13/18 10/05/23 quetiapine 50 mg tablet (Seroquel) 50 mg PO HS 12/13/18 10/05/23 acetaminophen 500 mg tablet (Pain 500 - 1,000 mg PO Q6HP PRN Pain 09/24/22 10/05/23 Relief Extra Strength (acetaminophen)) clopidogrel 75 mg tablet (Plavix) 75 mg PO DAILY 02/27/23 10/05/23 meclizine 12.5 mg tablet 12.5 mg PO DAILYP PRN Dizziness Or 02/28/23 10/05/23 Vertigo alendronate 70 mg tablet 70 mg PO WEEKLY 07/21/23 10/05/23 aspirin 81 mg chewable tablet 81 mg PO DAILY 07/21/23 10/05/23 atorvastatin 40 mg tablet 40 mg PO DAILY 07/21/23 10/05/23 calcium carbonate 500 mg-vitamin 1 tab PO BID 07/21/23 10/05/23 D3 2.5 mcg (100 unit) chewable tablet cholecalciferol (vitamin D3) 50 2,000 unit PO DAILY 07/21/23 10/05/23 mcg (2,000 unit) tablet famotidine 20 mg tablet 20 mg PO DAILY 07/21/23 10/05/23 gabapentin 100 mg capsule 200 mg PO HS 07/21/23 10/05/23 isosorbide mononitrate 30 mg 30 mg PO DAILY 07/21/23 10/05/23 tablet,extended release 24 hr lisinopril 20 mg tablet 20 mg PO DAILY 07/21/23 10/05/23 omeprazole 20 mg capsule,delayed 20 mg PO DAILY 07/21/23 10/05/23 release Previous Rx's Medication Instructions Recorded diazepam 2 mg tablet 2 mg PO TID PRN Anxiety 30 days 03/03/23 #90 tabs sennosides 8.6 mg-docusate sodium 1 tab PO DAILY PRN Constipation #0 03/03/23 50 mg tablet (Stool tabs Softener-Stimulant Laxative) metoprolol succinate 50 mg See Rx Instructions .Route 10/11/23 tablet,extended release 24 hr .COMPLEX #90 tabs Allergies Allergy/AdvReac Type Severity Reaction Status Date / Time codeine [CODEINE] Allergy Unknown WEAK Verified 10/06/23 07:45 hydrochlorothiazide Allergy Unknown I-RASH Verified 10/06/23 07:45 [HYDROCHLOROTHIAZIDE] hydrocodone [HYDROCODONE] Allergy Unknown I-RASH Verified 10/06/23 07:45 metoclopramide Allergy Unknown SLURRED Verified 10/06/23 07:45 [METOCLOPRAMIDE] SPEECH, WEAK nifedipine [NIFEDIPINE] Allergy Unknown I-HIVES Verified 10/06/23 07:45 prazosin [PRAZOSIN] Allergy Unknown ITCHING/WEA Verified 10/06/23 07:45 K triamterene [TRIAMTERENE] Allergy Unknown I-RASH Verified 10/06/23 07:45 [facility] Disclaimer: The information contained in this section may have been updated after the patient was seen, as this information can be updated by other users. Medical History Esophageal thickening Esophageal thickening Femur fracture, left History of left heart catheterization Coronary artery disease Carotid artery stenosis Surgical History History of permanent cardiac pacemaker placement S/P CABG x 1 Status post aortic valve replacement with bioprosthetic valve Family History Other Family history of cancer Family history of diabetes mellitus type II Family history of hypertension Family history of myocardial infarction Social History Smoking Status: Never smoker second hand exposure: Yes alcohol intake: never substance use type: denies use current occupational status: retired Travel in the last 8 weeks: None household members: none housing: apartment lives independently: Yes marital status: single education level: middle school service: No halfway: No current occupational exposures/hazards: No caffeine: Yes do you feel safe at home: Yes victim of physical abuse: No victim of emotional abuse: No victim of sexual abuse: No would you like helpful sources: No ROS Obtained: Yes All systems reviewed & no additional complaints except as documented Physical Exam General General appearance: alert and in no apparent distress Respiratory Respiratory exam: Present normal lung sounds bilaterally and respiratory distress Cardiovascular Cardiovascular exam: Present regular rate and normal rhythm Abdominal Exam Abdominal exam: Present soft; Absent distention or tenderness Neurological Exam Neurological exam: Present alert and oriented X3 Medical Decision Making Chet Inquiry Pt receiving controlled substance: No Vital Signs: 11/06/23 13:02 Temperature 97.7 F Temperature Source Oral Pulse Rate [Right] 73 Respiratory Rate 18 Blood Pressure [Right Arm] 126/76 Blood Pressure Mean [Right Arm] 92 02 Sat by Pulse Oximetry 98 Oxygen Delivery Method Room Air Medical Decision Narrative: Patient is a 72-year-old female presenting today with chronic abdominal discomfort. She has had numerous ED visits recently with labs that were unremarkable and CT scans which are unchanged from the past as stated above. There is no indication for any further or new emergent workup at this point. She recently had case management involved in her situation. She does seem to be well-hydrated has no acute emergent medical condition that is suspected. We are trying to call her friend/neighbor to see if she can come pick her up. It is on the weekend and we do not have any social work or case management options that are an escalation of care. She does not seem to be abused at the moment. She is currently awake alert oriented seems to be able to care for herself. After discussing the case with the patient's neighbor, Brisa, Brisa will come get the patient once again from the emergency department. Patient has been very strongly encouraged to follow-up with her primary care doctor regarding these chronic conditions. Critical Care Critical Care Time Critical Care Time: No
[2023-11-06 13:29] VITALS: BP 126/76; PULSE 74; RESP 15; TEMP 36.7
[2023-11-06 13:30] VITALS: BP 122/76; PULSE 74; RESP 16; TEMP 36.7; O2SAT 97
== END 2023-11-06 13:36 | disposition home or self-care (01) ==
PROVIDERS: Emergency Provider Student in an Organized Health Care Education/Training Program
DX: R10.9 Unspecified abdominal pain (principal); G89.29 Other chronic pain
CPT/HCPCS: 99283

== ENCOUNTER 2023-11-17 13:23 | Emergency (ER) | payer MEDICARE, SELFPAY ==
[2023-11-17 13:25] VITALS: BP 146/90; PULSE 79; RESP 15; TEMP 36.5; O2SAT 96; BMI 22.4
[2023-11-17 13:31] VITALS: BP 158/80; PULSE 70; O2SAT 97
--- NOTE | 2023-11-17 14:10 | ED_ITS ---
Discharge Plan Disposition Patient Disposition: Home, Self-Care Condition: Good Prescriptions Prescriptions: No Action venlafaxine 37.5 mg tablet 37.5 mg PO BID metformin 500 mg tablet 500 mg PO BID quetiapine [Seroquel] 50 mg tablet 50 mg PO HS metoprolol succinate 50 mg tablet extended release 24 hr See Rx Instructions .ROUTE .COMPLEX Qty: 90 3RF Dose Instruction: TAKE ONE TABLET BY MOUTH ONCE A DAY FOR HIGH BLOOD PRESSURE Rx Instructions: TAKE ONE TABLET BY MOUTH ONCE A DAY FOR HIGH BLOOD PRESSURE acetaminophen [Pain Relief ES (acetaminophen)] 500 mg tablet 500 - 1,000 mg PO Q6HP PRN (Reason: Pain) clopidogrel [Plavix] 75 mg tablet 75 mg PO DAILY meclizine 12.5 mg tablet 12.5 mg PO DAILYP PRN (Reason: Dizziness Or Vertigo) sennosides-docusate sodium [Stool Softener-Stimulant Laxat] 8.6-50 mg Tablet 1 tab PO DAILY PRN (Reason: Constipation) Qty: 0 0RF diazepam 2 mg tablet 2 mg PO TID PRN (Reason: Anxiety) 30 Days Qty: 90 0RF alendronate 70 mg tablet 70 mg PO WEEKLY Rx Instructions: Take on omeprazole 20 mg capsule,delayed release(DR/EC) 20 mg PO DAILY calcium carbonate-vitamin D3 500 mg-2.5 mcg (100 unit) tablet,chewable 1 tab PO BID cholecalciferol (vitamin D3) 50 mcg (2,000 unit) tablet 2,000 unit PO DAILY atorvastatin 40 mg tablet 40 mg PO DAILY lisinopril 20 mg tablet 20 mg PO DAILY Hold Instructions: pending follow-up with PCP and recheck of potassium levels isosorbide mononitrate 30 mg tablet extended release 24 hr 30 mg PO DAILY famotidine 20 mg tablet 20 mg PO DAILY aspirin 81 mg tablet,chewable 81 mg PO DAILY gabapentin 100 mg capsule 200 mg PO HS Referrals Follow up/Referrals: Monisha Peguero MD [Primary Care Provider] - See instructions Activity Restrictions/Add. Instructions Additional Instructions/Restrictions: Please follow-up with your PCP for your chronic abdominal pain. I strongly encourage you to reschedule your appointments with both pain management and gastroenterology. Clinical Impressions Clinical Impression: Chronic upper abdominal pain, Achalasia Instructions Patient Instructions: DI for Acute Abdominal Pain Discharge ED Provider: Felicita Klein General Adult HPI <ANJUM Pascual - Last Filed: 11/17/23 15:07> General Chief complaint: Abdominal Pain Stated complaint: ABD Pain Time Seen by Provider: 11/17/23 14:09 Mode of Arrival: EMS Source of Information: Patient and EMS Limitations: No Limitations Description of Symptoms (Recalled from ER Triage Doc. by RN): pt presents to ED via [facility] for abdominal pain. pt reports she has had ongoing abdominal pain ongoing for a while per pt report. pt states that she has seen her pcp for this issue and has a followup appt with gi on january 05. pt reports pain began this morning. History of Present Illness HPI narrative: Patient presents for epigastric abdominal pain. Patient presents with recurrent epigastric abdominal pain. Patient has been seen multiple times for the same complaint and has had an exhaustive workup that is revealed only her known diagnosis of achalasia. Multiple referrals have been made that the patient cancels. Patient today states that she needs a IV contrasted CAT scan to diagnose her problem. Patient lacks complete insight into her diagnosis. Unfortunately patient is living independently and ambulatory and able to make her own decisions. We attempted during her last visit to have home health arranged for the patient however her PCP canceled that order. Patient has no other complaints including chest pain shortness of breath fever chills hemoptysis hematochezia melena nausea vomit diarrhea. Related Data Home Medications Medication Instructions Recorded Confirmed venlafaxine 37.5 mg tablet 37.5 mg PO BID mood 07/26/17 10/05/23 metformin 500 mg tablet 500 mg PO BID 05/13/18 10/05/23 quetiapine 50 mg tablet (Seroquel) 50 mg PO HS 12/13/18 10/05/23 acetaminophen 500 mg tablet (Pain 500 - 1,000 mg PO Q6HP PRN Pain 09/24/22 10/05/23 Relief Extra Strength (acetaminophen)) clopidogrel 75 mg tablet (Plavix) 75 mg PO DAILY 02/27/23 10/05/23 meclizine 12.5 mg tablet 12.5 mg PO DAILYP PRN Dizziness Or 02/28/23 10/05/23 Vertigo alendronate 70 mg tablet 70 mg PO WEEKLY 07/21/23 10/05/23 aspirin 81 mg chewable tablet 81 mg PO DAILY 07/21/23 10/05/23 atorvastatin 40 mg tablet 40 mg PO DAILY 07/21/23 10/05/23 calcium carbonate 500 mg-vitamin 1 tab PO BID 07/21/23 10/05/23 D3 2.5 mcg (100 unit) chewable tablet cholecalciferol (vitamin D3) 50 2,000 unit PO DAILY 07/21/23 10/05/23 mcg (2,000 unit) tablet famotidine 20 mg tablet 20 mg PO DAILY 07/21/23 10/05/23 gabapentin 100 mg capsule 200 mg PO HS 07/21/23 10/05/23 isosorbide mononitrate 30 mg 30 mg PO DAILY 07/21/23 10/05/23 tablet,extended release 24 hr lisinopril 20 mg tablet 20 mg PO DAILY 07/21/23 10/05/23 omeprazole 20 mg capsule,delayed 20 mg PO DAILY 07/21/23 10/05/23 release Previous Rx's Medication Instructions Recorded diazepam 2 mg tablet 2 mg PO TID PRN Anxiety 30 days 03/03/23 #90 tabs sennosides 8.6 mg-docusate sodium 1 tab PO DAILY PRN Constipation #0 03/03/23 50 mg tablet (Stool tabs Softener-Stimulant Laxative) metoprolol succinate 50 mg See Rx Instructions .Route 10/11/23 tablet,extended release 24 hr .COMPLEX #90 tabs Allergies Allergy/AdvReac Type Severity Reaction Status Date / Time codeine [CODEINE] Allergy Unknown WEAK Verified 10/06/23 07:45 hydrochlorothiazide Allergy Unknown I-RASH Verified 10/06/23 07:45 [HYDROCHLOROTHIAZIDE] hydrocodone [HYDROCODONE] Allergy Unknown I-RASH Verified 10/06/23 07:45 metoclopramide Allergy Unknown SLURRED Verified 10/06/23 07:45 [METOCLOPRAMIDE] SPEECH, WEAK nifedipine [NIFEDIPINE] Allergy Unknown I-HIVES Verified 10/06/23 07:45 prazosin [PRAZOSIN] Allergy Unknown ITCHING/WEA Verified 10/06/23 07:45 K triamterene [TRIAMTERENE] Allergy Unknown I-RASH Verified 10/06/23 07:45 [facility] <ANJUM Pascual - Last Filed: 11/17/23 15:07> [facility] Disclaimer: The information contained in this section may have been updated after the patient was seen, as this information can be updated by other users. Medical History Esophageal thickening Esophageal thickening Femur fracture, left History of left heart catheterization Coronary artery disease Carotid artery stenosis Surgical History History of permanent cardiac pacemaker placement S/P CABG x 1 Status post aortic valve replacement with bioprosthetic valve Family History Other Family history of cancer Family history of diabetes mellitus type II Family history of hypertension Family history of myocardial infarction Social History Smoking Status: Never smoker second hand exposure: Yes alcohol intake: never substance use type: denies use current occupational status: retired Travel in the last 8 weeks: None household members: none housing: apartment lives independently: Yes marital status: single education level: middle school service: No intermediate: No current occupational exposures/hazards: No caffeine: Yes do you feel safe at home: Yes victim of physical abuse: No victim of emotional abuse: No victim of sexual abuse: No would you like helpful sources: No <ANJUM Pascual - Last Filed: 11/17/23 15:07> ROS Obtained: Yes Systems reviewed as appropriate & no additional complaints except as documented Physical Exam <ANJUM Pascual - Last Filed: 11/17/23 15:07> General General appearance: alert and in no apparent distress Head Head exam: atraumatic Eye Eye exam: Present normal appearance ENT ENT exam: Present normal exam Neck Neck exam: Present normal inspection Chest Chest inspection: Present normal inspection Respiratory Respiratory exam: Present normal lung sounds bilaterally Cardiovascular Cardiovascular exam: Present regular rate and normal rhythm Abdominal Exam Abdominal exam: Present soft, tenderness (Patient reports tenderness to palpation in the epigastrium no masses palpated no trauma noted and abdomen is soft) and normal bowel sounds; Absent guarding, rebound or rigidity Extremities Exam Extremities exam: Present normal inspection and full ROM Back Exam Back exam: Present normal inspection and full ROM Neurological Exam Neurological exam: Present alert, oriented X3 and CN II-XII intact Psychiatric Psychiatric exam: Present normal mood; Absent normal affect (Tearful) Medical Decision Making <ANJUM Pascual - Last Filed: 11/17/23 15:07> Medical Records Medical records reviewed: Yes I reviewed the patient's medical records. Chet Inquiry Pt receiving controlled substance: No Vital Signs: 11/17/23 13:25 11/17/23 13:31 11/17/23 14:30 Temperature 97.7 F Temperature Source Oral Pulse Rate 70 72 Pulse Rate [Left Radial] 79 Respiratory Rate 15 Blood Pressure 158/80 H 148/68 H Blood Pressure [Right Arm] 146/90 H Blood Pressure Mean 117 Blood Pressure Mean [Right Arm] 108 02 Sat by Pulse Oximetry 96 97 97 Oxygen Delivery Method Room Air Orders (Tests/Meds): ED MEDICATIONS Discontinued Medications Generic Name Dose Route Start Last Admin Trade Name Freq PRN Reason Stop Dose Admin Belladonna Alkaloids 60 ml 11/17/23 14:33 11/17/23 14:59 Belladonna Alkaloids 60 Ml Ml PO 11/17/23 14:34 60 ml ONCE ONE Administration Ketorolac Tromethamine 15 mg 11/17/23 14:33 11/17/23 14:53 Ketorolac 30mg/Ml Vial IV 11/17/23 14:34 Not Given ONCE ONE Ketorolac Tromethamine 15 mg 11/17/23 14:52 11/17/23 15:00 Ketorolac 30mg/Ml Vial IM 11/17/23 14:53 15 mg ONCE ONE Administration Medical Decision Narrative: In summary patient is a 72-year-old female who presents to the emergency department for evaluation of chronic abdominal pain. Patient is hemodynamically stable upon arrival, afebrile. Physical exam is remarkable only for epigastric abdominal pain that is not new and chronic. Differential diagnosis includes achalasia versus GERD versus gastroparesis etc. I attempted to have a conversation with the patient regarding insight to her diagnosis and patient reports that she requires a contrasted CT scan of the abdomen to diagnose it. I reviewed patient's history with her multiple previous CAT scans, her bidirectional scope, appointments made with both GI and pain management. Patient has canceled multiple appointments with other refers except for the appointment for the bidirectional scope. Patient can give no reason for canceling other than I did not want to get in trouble but cannot say who she thinks she will get in trouble with or for. I then had an interactive discussion with both social services technician and case management and unfortunately as patient independent of activities of daily living, ambulatory she does not meet criteria for any other services. Patient has no serious or life-threatening conditions currently with stable vital signs and is ambulatory in the emergency department tolerating p.o. Will refer her back to her PCP for management. <Felicita Klein MD - Last Filed: 11/17/23 15:17> Vital Signs: 11/17/23 13:25 11/17/23 13:31 11/17/23 14:30 Temperature 97.7 F Temperature Source Oral Pulse Rate 70 72 Pulse Rate [Left Radial] 79 Respiratory Rate 15 Blood Pressure 158/80 H 148/68 H Blood Pressure [Right Arm] 146/90 H Blood Pressure Mean 117 Blood Pressure Mean [Right Arm] 108 02 Sat by Pulse Oximetry 96 97 97 Oxygen Delivery Method Room Air Orders (Tests/Meds): ED MEDICATIONS Discontinued Medications Generic Name Dose Route Start Last Admin Trade Name Freq PRN Reason Stop Dose Admin Belladonna Alkaloids 60 ml 11/17/23 14:33 11/17/23 14:59 Belladonna Alkaloids 60 Ml Ml PO 11/17/23 14:34 60 ml ONCE ONE Administration Ketorolac Tromethamine 15 mg 11/17/23 14:33 11/17/23 14:53 Ketorolac 30mg/Ml Vial IV 11/17/23 14:34 Not Given ONCE ONE Ketorolac Tromethamine 15 mg 11/17/23 14:52 11/17/23 15:00 Ketorolac 30mg/Ml Vial IM 11/17/23 14:53 15 mg ONCE ONE Administration Medical Decision Narrative: In summary patient is a 72-year-old female who presents to the emergency department for evaluation of chronic abdominal pain. Patient is hemodynamically stable upon arrival, afebrile. Physical exam is remarkable only for epigastric abdominal pain that is not new and chronic. Differential diagnosis includes achalasia versus GERD versus gastroparesis etc. I attempted to have a conversation with the patient regarding insight to her diagnosis and patient reports that she requires a contrasted CT scan of the abdomen to diagnose it. I reviewed patient's history with her multiple previous CAT scans, her bidirectional scope, appointments made with both GI and pain management. Patient has canceled multiple appointments with other refers except for the appointment for the bidirectional scope. Patient can give no reason for canceling other than I did not want to get in trouble but cannot say who she thinks she will get in trouble with or for. I then had an interactive discussion with both social services technician and case management and unfortunately as patient independent of activities of daily living, ambulatory she does not meet criteria for any other services. Patient has no serious or life-threatening conditions currently with stable vital signs and is ambulatory in the emergency department tolerating p.o. Will refer her back to her PCP for management. I was consulted by the [place], and we discussed the complexity of problems being addressed. I approved the treatment and management plan for this patient's care in the emergency department, thus performing a substantial portion of the medical decision making. I spent significant time at bedside counseling the patient about her ongoing problems and then the necessity for her to follow-up with Dr. Ruff. She states she has an appointment with him on December 14. I reassured her based off her multiple extensive workups in the ER I have very low suspicion for new acute pathology. She is appropriate for discharge. Felicita Klein MD Critical Care <ANJUM Pascual - Last Filed: 11/17/23 15:07> Critical Care Time Critical Care Time: No
[2023-11-17 14:30] VITALS: BP 148/68; PULSE 72; O2SAT 97
--- NOTE | 2023-11-17 14:43 | PC.NURSE ---
Called and talked to CM about evaluation about further care for pt and her mental capacity and ability to care for herself. Carolee transferred to speak with Jermaine VALERO
[2023-11-17] MEDS: BELLADONNA ALKALOIDS 60 ML ML PO (14:59)
[2023-11-17] MEDS: KETOROLAC 30MG/ML VIAL 15 MG IM (15:00)
--- NOTE | 2023-11-17 15:15 | SW/DCPLANNER ---
I have arranged [facility] for this patient.
[2023-11-17 15:22] VITALS: BP 139/67; PULSE 71; RESP 16; TEMP 36.7
== END 2023-11-17 15:23 | disposition home or self-care (01) ==
PROVIDERS: Emergency Provider Emergency Medicine; PCP Family Medicine
DX: R10.10 Upper abdominal pain, unspecified (principal); G89.29 Other chronic pain; K22.0 Achalasia of cardia
CPT/HCPCS: 96372; 96374; 99284

== ENCOUNTER 2023-11-22 15:23 | Emergency (ER) | payer MEDICARE, SELFPAY ==
[2023-11-22 15:21] VITALS: BP 146/73; PULSE 73; RESP 18; TEMP 36.7; O2SAT 100; BMI 22.2
--- NOTE | 2023-11-22 15:31 | HMH.EDGENADL ---
Discharge Plan Disposition Patient Disposition: Home, Self-Care Condition: Good Prescriptions Prescriptions: No Action venlafaxine 37.5 mg tablet 37.5 mg PO BID metformin 500 mg tablet 500 mg PO BID quetiapine [Seroquel] 50 mg tablet 50 mg PO HS metoprolol succinate 50 mg tablet extended release 24 hr See Rx Instructions .ROUTE .COMPLEX Qty: 90 3RF Dose Instruction: TAKE ONE TABLET BY MOUTH ONCE A DAY FOR HIGH BLOOD PRESSURE Rx Instructions: TAKE ONE TABLET BY MOUTH ONCE A DAY FOR HIGH BLOOD PRESSURE acetaminophen [Pain Relief ES (acetaminophen)] 500 mg tablet 500 - 1,000 mg PO Q6HP PRN (Reason: Pain) clopidogrel [Plavix] 75 mg tablet 75 mg PO DAILY meclizine 12.5 mg tablet 12.5 mg PO DAILYP PRN (Reason: Dizziness Or Vertigo) sennosides-docusate sodium [Stool Softener-Stimulant Laxat] 8.6-50 mg Tablet 1 tab PO DAILY PRN (Reason: Constipation) Qty: 0 0RF diazepam 2 mg tablet 2 mg PO TID PRN (Reason: Anxiety) 30 Days Qty: 90 0RF alendronate 70 mg tablet 70 mg PO WEEKLY Rx Instructions: Take on omeprazole 20 mg capsule,delayed release(DR/EC) 20 mg PO DAILY calcium carbonate-vitamin D3 500 mg-2.5 mcg (100 unit) tablet,chewable 1 tab PO BID cholecalciferol (vitamin D3) 50 mcg (2,000 unit) tablet 2,000 unit PO DAILY atorvastatin 40 mg tablet 40 mg PO DAILY lisinopril 20 mg tablet 20 mg PO DAILY Hold Instructions: pending follow-up with PCP and recheck of potassium levels isosorbide mononitrate 30 mg tablet extended release 24 hr 30 mg PO DAILY famotidine 20 mg tablet 20 mg PO DAILY aspirin 81 mg tablet,chewable 81 mg PO DAILY gabapentin 100 mg capsule 200 mg PO HS Referrals Follow up/Referrals: Bill Spencer MD [Staff Physician] - See instructions Activity Restrictions/Add. Instructions Additional Instructions/Restrictions: Please follow-up with Dr. Spencer by calling and make an appointment tomorrow. Please keep your appointment with GI. Please follow-up closely with your PCP as scheduled this week. Clinical Impressions Clinical Impression: Chronic abdominal pain Instructions Patient Instructions: DI for Acute Abdominal Pain Discharge ED Provider: [facility] <ANJUM Pascual - Last Filed: 11/22/23 16:25> General Chief complaint: Abdominal Pain Stated complaint: abdomen pain Time Seen by Provider: 11/22/23 15:34 Mode of Arrival: EMS Source of Information: Patient Limitations: No Limitations Description of Symptoms (Recalled from ER Triage Doc. by RN): Patient returns to ER related to mid abdomen pain that started a few minutes ago. History of Present Illness HPI narrative: Patient presents for evaluation of chronic abdominal pain. Patient has had extensive workup for chronic abdominal pain that has no discrete cause but is presumed to be from achalasia. She has been and failed multiple resources by her PCP including home health and now reportedly is in hospice. However patient continues to access the emergency department for the same pain. Patient continues to cancel and not follow-up with referrals. As documented by my previous visit patient has no insight into the course and because of her plan and despite having multiple workups continues to insist upon having a contrasted abdominal study to find out the source of her pain. Patient reports that her pain today is exactly the same as it always is which is chronic and she wants relief and wants to know why she is having the pain. Multiple providers have attempted to fight contacts to the patient however patient continues to deny that she knows what is happening. Patient denies cardiac chest pain shortness of breath fever chills hemoptysis hematochezia melena nausea vomiting diarrhea. Related Data Home Medications Medication Instructions Recorded Confirmed venlafaxine 37.5 mg tablet 37.5 mg PO BID mood 07/26/17 10/05/23 metformin 500 mg tablet 500 mg PO BID 05/13/18 10/05/23 quetiapine 50 mg tablet (Seroquel) 50 mg PO HS 12/13/18 10/05/23 acetaminophen 500 mg tablet (Pain 500 - 1,000 mg PO Q6HP PRN Pain 09/24/22 10/05/23 Relief Extra Strength (acetaminophen)) clopidogrel 75 mg tablet (Plavix) 75 mg PO DAILY 02/27/23 10/05/23 meclizine 12.5 mg tablet 12.5 mg PO DAILYP PRN Dizziness Or 02/28/23 10/05/23 Vertigo alendronate 70 mg tablet 70 mg PO WEEKLY 07/21/23 10/05/23 aspirin 81 mg chewable tablet 81 mg PO DAILY 07/21/23 10/05/23 atorvastatin 40 mg tablet 40 mg PO DAILY 07/21/23 10/05/23 calcium carbonate 500 mg-vitamin 1 tab PO BID 07/21/23 10/05/23 D3 2.5 mcg (100 unit) chewable tablet cholecalciferol (vitamin D3) 50 2,000 unit PO DAILY 07/21/23 10/05/23 mcg (2,000 unit) tablet famotidine 20 mg tablet 20 mg PO DAILY 07/21/23 10/05/23 gabapentin 100 mg capsule 200 mg PO HS 07/21/23 10/05/23 isosorbide mononitrate 30 mg 30 mg PO DAILY 07/21/23 10/05/23 tablet,extended release 24 hr lisinopril 20 mg tablet 20 mg PO DAILY 07/21/23 10/05/23 omeprazole 20 mg capsule,delayed 20 mg PO DAILY 07/21/23 10/05/23 release Previous Rx's Medication Instructions Recorded diazepam 2 mg tablet 2 mg PO TID PRN Anxiety 30 days 03/03/23 #90 tabs sennosides 8.6 mg-docusate sodium 1 tab PO DAILY PRN Constipation #0 03/03/23 50 mg tablet (Stool tabs Softener-Stimulant Laxative) metoprolol succinate 50 mg See Rx Instructions .Route 10/11/23 tablet,extended release 24 hr .COMPLEX #90 tabs Allergies Allergy/AdvReac Type Severity Reaction Status Date / Time codeine [CODEINE] Allergy Unknown WEAK Verified 10/06/23 07:45 hydrochlorothiazide Allergy Unknown I-RASH Verified 10/06/23 07:45 [HYDROCHLOROTHIAZIDE] hydrocodone [HYDROCODONE] Allergy Unknown I-RASH Verified 10/06/23 07:45 metoclopramide Allergy Unknown SLURRED Verified 10/06/23 07:45 [METOCLOPRAMIDE] SPEECH, WEAK nifedipine [NIFEDIPINE] Allergy Unknown I-HIVES Verified 10/06/23 07:45 prazosin [PRAZOSIN] Allergy Unknown ITCHING/WEA Verified 10/06/23 07:45 K triamterene [TRIAMTERENE] Allergy Unknown I-RASH Verified 10/06/23 07:45 [facility] <ANJUM Pascual - Last Filed: 11/22/23 16:25> [facility] Disclaimer: The information contained in this section may have been updated after the patient was seen, as this information can be updated by other users. Medical History Esophageal thickening Esophageal thickening Femur fracture, left History of left heart catheterization Coronary artery disease Carotid artery stenosis Surgical History History of permanent cardiac pacemaker placement S/P CABG x 1 Status post aortic valve replacement with bioprosthetic valve Family History Other Family history of cancer Family history of diabetes mellitus type II Family history of hypertension Family history of myocardial infarction Social History Smoking Status: Never smoker second hand exposure: Yes alcohol intake: never substance use type: denies use current occupational status: retired Travel in the last 8 weeks: None household members: none housing: apartment lives independently: Yes marital status: single education level: middle school service: No shelter: No current occupational exposures/hazards: No caffeine: Yes do you feel safe at home: Yes victim of physical abuse: No victim of emotional abuse: No victim of sexual abuse: No would you like helpful sources: No <ANJUM Pascual - Last Filed: 11/22/23 16:25> ROS Obtained: Yes Systems reviewed as appropriate & no additional complaints except as documented Physical Exam <ANJUM Pascual - Last Filed: 11/22/23 16:25> General General appearance: alert and in no apparent distress Respiratory Respiratory exam: Present normal lung sounds bilaterally Cardiovascular Cardiovascular exam: Present regular rate and normal rhythm Abdominal Exam Abdominal exam: Present soft and tenderness (In the epigastrium) Extremities Exam Extremities exam: Present normal inspection and full ROM Back Exam Back exam: Present normal inspection and full ROM; Absent tenderness Neurological Exam Neurological exam: Present alert, oriented X3 and CN II-XII intact Psychiatric Psychiatric exam: Present normal affect and normal mood Medical Decision Making <ANJUM Pascual - Last Filed: 11/22/23 16:25> Medical Records Medical records reviewed: Yes I reviewed the patient's medical records. Chet Inquiry Pt receiving controlled substance: No Vital Signs: 11/22/23 15:21 11/22/23 16:00 11/22/23 16:30 Temperature 98.0 F Temperature Source Oral Pulse Rate 73 71 Pulse Rate [Radial] 73 Respiratory Rate 18 Blood Pressure 154/66 H 149/74 H Blood Pressure [Right Arm] 146/73 H Blood Pressure Mean [Right Arm] 97 Blood Pressure Source Blood Pressure Source [Right Arm] Automatic Cuff Blood Pressure Position [Right Arm] Sitting 02 Sat by Pulse Oximetry 100 98 99 Oxygen Delivery Method Room Air Room Air Room Air 11/22/23 17:05 Temperature 98.0 F Temperature Source Oral Pulse Rate 73 Pulse Rate [Radial] Respiratory Rate 16 Blood Pressure 145/71 H Blood Pressure [Right Arm] Blood Pressure Mean [Right Arm] Blood Pressure Source Automatic Cuff Blood Pressure Source [Right Arm] Blood Pressure Position [Right Arm] 02 Sat by Pulse Oximetry Oxygen Delivery Method Room Air Lab Data Lab results reviewed: Yes I reviewed the patient's lab results. Orders (Tests/Meds): ED MEDICATIONS Discontinued Medications Generic Name Dose Route Start Last Admin Trade Name Freq PRN Reason Stop Dose Admin Belladonna Alkaloids 60 ml 11/22/23 15:34 11/22/23 15:42 Belladonna Alkaloids 60 Ml Ml PO 11/22/23 15:35 60 ml ONCE ONE Administration Medical Decision Narrative: In summary patient is a 72-year-old female who presents to the emergency department for evaluation of chronic abdominal pain. Patient is hemodynamically stable upon arrival, afebrile. Physical exam is remarkable for epigastric abdominal pain with no other focal findings on exam. Differential diagnosis includes chronic abdominal pain, GERD, ulcer, ACS etc. All previous documentation was reviewed all previous imaging is reviewed and patient has had extensive extensive workup with no known cause. Consideration of other causes have yielded no findings previously. Patient was placed in hospice after the last visit I had with her on 11/17/2023 by her PCP reportedly. Initial workup was considered however deferred in lieu of symptomatic treatment first as patient usually reports resolution of her symptoms after GI cocktail. Initial interventions include GI cocktail. Upon reassessment I had interactive discussion with the patient regarding her pain which she reports complete resolution of her symptoms after GI cocktail. Patient has a lot of anxiety and worry about cancer and states that she comes to the emergency department because she is always worried that this pain means cancer. I reassured her that she has had multiple evaluations since the beginning of the year alone that have not revealed any evidence of neoplastic disease thus far. Patient feels that she is appropriate to go home via self-directed decision making. Subsequently she will be discharged home with follow-up with her PCP. <Emiliano Meredith, DO - Last Filed: 11/22/23 23:45> Vital Signs: 11/22/23 15:21 11/22/23 16:00 11/22/23 16:30 Temperature 98.0 F Temperature Source Oral Pulse Rate 73 71 Pulse Rate [Radial] 73 Respiratory Rate 18 Blood Pressure 154/66 H 149/74 H Blood Pressure [Right Arm] 146/73 H Blood Pressure Mean [Right Arm] 97 Blood Pressure Source Blood Pressure Source [Right Arm] Automatic Cuff Blood Pressure Position [Right Arm] Sitting 02 Sat by Pulse Oximetry 100 98 99 Oxygen Delivery Method Room Air Room Air Room Air 11/22/23 17:05 Temperature 98.0 F Temperature Source Oral Pulse Rate 73 Pulse Rate [Radial] Respiratory Rate 16 Blood Pressure 145/71 H Blood Pressure [Right Arm] Blood Pressure Mean [Right Arm] Blood Pressure Source Automatic Cuff Blood Pressure Source [Right Arm] Blood Pressure Position [Right Arm] 02 Sat by Pulse Oximetry Oxygen Delivery Method Room Air Orders (Tests/Meds): ED MEDICATIONS Discontinued Medications Generic Name Dose Route Start Last Admin Trade Name Freq PRN Reason Stop Dose Admin Belladonna Alkaloids 60 ml 11/22/23 15:34 11/22/23 15:42 Belladonna Alkaloids 60 Ml Ml PO 11/22/23 15:35 60 ml ONCE ONE Administration Medical Decision Narrative: In summary patient is a 72-year-old female who presents to the emergency department for evaluation of chronic abdominal pain. Patient is hemodynamically stable upon arrival, afebrile. Physical exam is remarkable for epigastric abdominal pain with no other focal findings on exam. Differential diagnosis includes chronic abdominal pain, GERD, ulcer, ACS etc. All previous documentation was reviewed all previous imaging is reviewed and patient has had extensive extensive workup with no known cause. Consideration of other causes have yielded no findings previously. Patient was placed in hospice after the last visit I had with her on 11/17/2023 by her PCP reportedly. Initial workup was considered however deferred in lieu of symptomatic treatment first as patient usually reports resolution of her symptoms after GI cocktail. Initial interventions include GI cocktail. Upon reassessment I had interactive discussion with the patient regarding her pain which she reports complete resolution of her symptoms after GI cocktail. Patient has a lot of anxiety and worry about cancer and states that she comes to the emergency department because she is always worried that this pain means cancer. I reassured her that she has had multiple evaluations since the beginning of the year alone that have not revealed any evidence of neoplastic disease thus far. Patient feels that she is appropriate to go home via self-directed decision making. Subsequently she will be discharged home with follow-up with her PCP. I was consulted by the [facility], and we discussed the complexity of the problems being addressed. I approved the treatment and management plan for this patient's care in the Emergency Department, thus performing a substantive portion of the medical decision making. Emiliano Meredith, DO Critical Care <ANJUM Pascual - Last Filed: 11/22/23 16:25> Critical Care Time Critical Care Time: No
[2023-11-22] MEDS: BELLADONNA ALKALOIDS 60 ML ML PO (15:42)
[2023-11-22 16:00] VITALS: BP 154/66; PULSE 73; O2SAT 98
--- NOTE | 2023-11-22 16:24 | PC.NURSE ---
WENT AND CHECKED ON PT SHE SAID THE GI COCKTAIL HELPED PROVIDER AWARE
[2023-11-22 16:30] VITALS: BP 149/74; PULSE 71; O2SAT 99
[2023-11-22 17:05] VITALS: BP 145/71; PULSE 73; RESP 16; TEMP 36.7; O2SAT 98
== END 2023-11-22 17:11 | disposition home or self-care (01) ==
PROVIDERS: Emergency Provider Emergency Medicine; PCP Internal Medicine
DX: R10.9 Unspecified abdominal pain (principal); G89.29 Other chronic pain
CPT/HCPCS: 99283

== ENCOUNTER 2023-11-25 13:50 | Emergency (ER) | payer MEDICARE, SELFPAY ==
[2023-11-25 13:50] VITALS: BP 148/60; RESP 18; TEMP 36.7; O2SAT 98; BMI 22.2
[2023-11-25] MEDS: BELLADONNA ALKALOIDS 60 ML ML PO (14:16)
--- NOTE | 2023-11-25 14:51 | ED_ITS ---
Discharge Plan Disposition Patient Disposition: Home, Self-Care Condition: Good Prescriptions Prescriptions: No Action venlafaxine 37.5 mg tablet 37.5 mg PO BID metformin 500 mg tablet 500 mg PO BID quetiapine [Seroquel] 50 mg tablet 50 mg PO HS metoprolol succinate 50 mg tablet extended release 24 hr See Rx Instructions .ROUTE .COMPLEX Qty: 90 3RF Dose Instruction: TAKE ONE TABLET BY MOUTH ONCE A DAY FOR HIGH BLOOD PRESSURE Rx Instructions: TAKE ONE TABLET BY MOUTH ONCE A DAY FOR HIGH BLOOD PRESSURE acetaminophen [Pain Relief ES (acetaminophen)] 500 mg tablet 500 - 1,000 mg PO Q6HP PRN (Reason: Pain) clopidogrel [Plavix] 75 mg tablet 75 mg PO DAILY meclizine 12.5 mg tablet 12.5 mg PO DAILYP PRN (Reason: Dizziness Or Vertigo) sennosides-docusate sodium [Stool Softener-Stimulant Laxat] 8.6-50 mg Tablet 1 tab PO DAILY PRN (Reason: Constipation) Qty: 0 0RF diazepam 2 mg tablet 2 mg PO TID PRN (Reason: Anxiety) 30 Days Qty: 90 0RF alendronate 70 mg tablet 70 mg PO WEEKLY Rx Instructions: Take on omeprazole 20 mg capsule,delayed release(DR/EC) 20 mg PO DAILY calcium carbonate-vitamin D3 500 mg-2.5 mcg (100 unit) tablet,chewable 1 tab PO BID cholecalciferol (vitamin D3) 50 mcg (2,000 unit) tablet 2,000 unit PO DAILY atorvastatin 40 mg tablet 40 mg PO DAILY lisinopril 20 mg tablet 20 mg PO DAILY Hold Instructions: pending follow-up with PCP and recheck of potassium levels isosorbide mononitrate 30 mg tablet extended release 24 hr 30 mg PO DAILY famotidine 20 mg tablet 20 mg PO DAILY aspirin 81 mg tablet,chewable 81 mg PO DAILY gabapentin 100 mg capsule 200 mg PO HS Referrals Follow up/Referrals: Provider,Referral, MD [Primary Care Provider] - See instructions Activity Restrictions/Add. Instructions Additional Instructions/Restrictions: You were evaluated in the emergency department today. It is important that you follow-up with gastroenterology as well as your primary care provider. Return to the emergency department for new or worsening symptoms. Clinical Impressions Clinical Impression: Chronic abdominal pain, Elevated lipase Instructions Patient Instructions: DI for Acute Abdominal Pain Discharge ED Provider: Glenys Hassan General Adult HPI <Lennox Conrad MD - Last Filed: 11/25/23 15:44> General Chief complaint: Abdominal Pain Stated complaint: Abdominal Pain Time Seen by Provider: 11/25/23 14:00 Mode of Arrival: EMS Source of Information: Patient Limitations: No Limitations Description of Symptoms (Recalled from ER Triage Doc. by RN): Patient presents to ED with complaints of chronic abdominal pain. Patient states she was supposed to follow up with GI today but they had to reschedule. patient denies other symptoms. History of Present Illness HPI narrative: 72-year-old female very well-known to this emergency department for chronic abdominal pain and multiple visits presenting with the same symptoms. No new symptoms, states she is having abdominal pain, wants to be checked out. Please note that above description of symptoms, in this electronic medical record under categorization of recalled from ER triage doctor by RN are reflective of an initial nursing assessment, however, is not reflective of my full history and physical exam that was personally taken and clarified. Consequentially, this preceding description of symptoms, which may include the patient's categorized chief complaint in the EMR, do not reflect my personal clinical impression, and the ultimate description of history of present illness and patient stated complaints should be deferred to this section of the note. Unless stated otherwise or congruent with this section of the note, additional signs, symptoms, or incongruence should be interpreted as inaccurate with my clinical impression. Related Data Home Medications Medication Instructions Recorded Confirmed venlafaxine 37.5 mg tablet 37.5 mg PO BID mood 07/26/17 10/05/23 metformin 500 mg tablet 500 mg PO BID 05/13/18 10/05/23 quetiapine 50 mg tablet (Seroquel) 50 mg PO HS 12/13/18 10/05/23 acetaminophen 500 mg tablet (Pain 500 - 1,000 mg PO Q6HP PRN Pain 09/24/22 10/05/23 Relief Extra Strength (acetaminophen)) clopidogrel 75 mg tablet (Plavix) 75 mg PO DAILY 02/27/23 10/05/23 meclizine 12.5 mg tablet 12.5 mg PO DAILYP PRN Dizziness Or 02/28/23 10/05/23 Vertigo alendronate 70 mg tablet 70 mg PO WEEKLY 07/21/23 10/05/23 aspirin 81 mg chewable tablet 81 mg PO DAILY 07/21/23 10/05/23 atorvastatin 40 mg tablet 40 mg PO DAILY 07/21/23 10/05/23 calcium carbonate 500 mg-vitamin 1 tab PO BID 07/21/23 10/05/23 D3 2.5 mcg (100 unit) chewable tablet cholecalciferol (vitamin D3) 50 2,000 unit PO DAILY 07/21/23 10/05/23 mcg (2,000 unit) tablet famotidine 20 mg tablet 20 mg PO DAILY 07/21/23 10/05/23 gabapentin 100 mg capsule 200 mg PO HS 07/21/23 10/05/23 isosorbide mononitrate 30 mg 30 mg PO DAILY 07/21/23 10/05/23 tablet,extended release 24 hr lisinopril 20 mg tablet 20 mg PO DAILY 07/21/23 10/05/23 omeprazole 20 mg capsule,delayed 20 mg PO DAILY 07/21/23 10/05/23 release Previous Rx's Medication Instructions Recorded diazepam 2 mg tablet 2 mg PO TID PRN Anxiety 30 days 03/03/23 #90 tabs sennosides 8.6 mg-docusate sodium 1 tab PO DAILY PRN Constipation #0 03/03/23 50 mg tablet (Stool tabs Softener-Stimulant Laxative) metoprolol succinate 50 mg See Rx Instructions .Route 10/11/23 tablet,extended release 24 hr .COMPLEX #90 tabs Allergies Allergy/AdvReac Type Severity Reaction Status Date / Time codeine [CODEINE] Allergy Unknown WEAK Verified 10/06/23 07:45 hydrochlorothiazide Allergy Unknown I-RASH Verified 10/06/23 07:45 [HYDROCHLOROTHIAZIDE] hydrocodone [HYDROCODONE] Allergy Unknown I-RASH Verified 10/06/23 07:45 metoclopramide Allergy Unknown SLURRED Verified 10/06/23 07:45 [METOCLOPRAMIDE] SPEECH, WEAK nifedipine [NIFEDIPINE] Allergy Unknown I-HIVES Verified 10/06/23 07:45 prazosin [PRAZOSIN] Allergy Unknown ITCHING/WEA Verified 10/06/23 07:45 K triamterene [TRIAMTERENE] Allergy Unknown I-RASH Verified 10/06/23 07:45 [facility] <Lennox Conrad MD - Last Filed: 11/25/23 15:44> [facility] Disclaimer: The information contained in this section may have been updated after the patient was seen, as this information can be updated by other users. Medical History Esophageal thickening Esophageal thickening Femur fracture, left History of left heart catheterization Coronary artery disease Carotid artery stenosis Surgical History History of permanent cardiac pacemaker placement S/P CABG x 1 Status post aortic valve replacement with bioprosthetic valve Family History Other Family history of cancer Family history of diabetes mellitus type II Family history of hypertension Family history of myocardial infarction Social History Smoking Status: Never smoker second hand exposure: Yes alcohol intake: never substance use type: denies use current occupational status: retired Travel in the last 8 weeks: None household members: none housing: apartment lives independently: Yes marital status: single education level: middle school service: No group home: No current occupational exposures/hazards: No caffeine: Yes do you feel safe at home: Yes victim of physical abuse: No victim of emotional abuse: No victim of sexual abuse: No would you like helpful sources: No <Lennox Conrad MD - Last Filed: 11/25/23 15:44> ROS Obtained: Yes All systems reviewed & no additional complaints except as documented Physical Exam <Lennox Conrad MD - Last Filed: 11/25/23 15:44> General General appearance: alert and in no apparent distress Head Head exam: atraumatic and normocephalic Eye Eye exam: Present normal appearance, PERRL and EOMI ENT ENT exam: Present mucous membranes moist Neck Neck exam: Present normal inspection, full ROM and trachea midline Respiratory Respiratory exam: Absent respiratory distress, wheezes, stridor, accessory muscle use or prolonged expiratory phase Cardiovascular Cardiovascular exam: Present normal rhythm Abdominal Exam Abdominal exam: Present soft; Absent distention, tenderness, guarding, rebound or rigidity Extremities Exam Extremities exam: Absent edema Neurological Exam Neurological exam: Present alert, oriented X3, CN II-XII intact and normal gait; Absent motor sensory deficit Skin Skin exam: Present warm and dry; Absent diaphoresis or erythema Medical Decision Making <Lennox Conrad MD - Last Filed: 11/25/23 15:44> Medical Records Medical records reviewed: Yes I reviewed the patient's medical records. Chet Inquiry Pt receiving controlled substance: No Chet was queried for this patient: No Vital Signs: 11/25/23 13:50 Temperature 98.1 F Temperature Source Oral Respiratory Rate 18 Blood Pressure [Right Arm] 148/60 H Blood Pressure Mean [Right Arm] 89 Blood Pressure Source [Right Arm] Automatic Cuff 02 Sat by Pulse Oximetry 98 Oxygen Delivery Method Room Air Lab Data Lab Results 11/25/23 15:30: WBC 6.8, RBC 3.34 L, Hgb 10.9 L, Hct 34.6 L, MCV 103.4 H, MCH 32.7 H, MCHC 31.7 L, RDW 15.7, Plt Count 238, MPV 8.4, Neut % (Auto) 80.9 H, Lymph % (Auto) 13.1, Clayton % (Auto) 5.0, Eos % (Auto) 0.5, Baso % (Auto) 0.5, Neut # (Auto) 5.5, Lymph # (Auto) 0.9, Clayton # (Auto) 0.3, Eos # (Auto) 0.0, Baso # (Auto) 0.0, Sodium 138, Potassium 4.5, Chloride 100, Carbon Dioxide 25, Anion Gap 17.5 H, BUN 17, Creatinine 0.70, Estimated Creat Clear 40, Estimated GFR 82, Est GFR ( Amer) 99, Glucose 184 H, Calcium 10.3 H, Total Bilirubin 0.5, AST 29, ALT 25, Alkaline Phosphatase 60, Total Protein 7.2, Albumin 4.8, Globulin 2.4, Albumin/Globulin Ratio 2.0 H, Lipase 321 H 11/25/23 15:30 11/25/23 15:30 Orders (Tests/Meds): ED MEDICATIONS Discontinued Medications Generic Name Dose Route Start Last Admin Trade Name Freq PRN Reason Stop Dose Admin Belladonna Alkaloids 60 ml 11/25/23 14:12 11/25/23 14:16 Belladonna Alkaloids 60 Ml Ml PO 11/25/23 14:13 60 ml ONCE ONE Administration ORDERS Category Date Time Status CBC w/Auto Diff [Complete Blood Count Auto Diff] Stat Lab 11/25/23 15:30 Completed CMP [Comprehensive Metabolic Panel] Stat Lab 11/25/23 15:30 Completed Lipase Stat Lab 11/25/23 15:30 Completed Medical Decision Narrative: 72-year-old female very well-known to this emergency department for chronic abdominal pain and multiple visits presenting with the same symptoms. No new symptoms, states she is having abdominal pain, wants to be checked out. History obtained the patient and chart review. On arrival, patient hemodynamically stable, immediately tearful, anxious, but very well-appearing. Abdominal exam is benign, I do not feel strongly about getting another CT scan as patient has had multiple over the past few weeks. Patient was post to follow-up with GI today, GI was stuck out of state, unable to get back in time for appointment. Basic labs to be drawn. Given GI cocktail. Prior to labs and reevaluation, care ended up to oncoming physician. Curing Press Operator disclaimer Much of this encounter note is an electronic compensation programs manager spoken language to printed text. Electronic compensation programs manager of the spoken language may permit errors. Although I have reviewed the note, some errors may still exist. <Glenys Hassan, DO - Last Filed: 11/25/23 16:44> Vital Signs: 11/25/23 13:50 Temperature 98.1 F Temperature Source Oral Respiratory Rate 18 Blood Pressure [Right Arm] 148/60 H Blood Pressure Mean [Right Arm] 89 Blood Pressure Source [Right Arm] Automatic Cuff 02 Sat by Pulse Oximetry 98 Oxygen Delivery Method Room Air Lab Data Lab Results 11/25/23 15:30: WBC 6.8, RBC 3.34 L, Hgb 10.9 L, Hct 34.6 L, MCV 103.4 H, MCH 32.7 H, MCHC 31.7 L, RDW 15.7, Plt Count 238, MPV 8.4, Neut % (Auto) 80.9 H, Lymph % (Auto) 13.1, Clayton % (Auto) 5.0, Eos % (Auto) 0.5, Baso % (Auto) 0.5, Neut # (Auto) 5.5, Lymph # (Auto) 0.9, Clayton # (Auto) 0.3, Eos # (Auto) 0.0, Baso # (Auto) 0.0, Sodium 138, Potassium 4.5, Chloride 100, Carbon Dioxide 25, Anion Gap 17.5 H, BUN 17, Creatinine 0.70, Estimated Creat Clear 40, Estimated GFR 82, Est GFR ( Amer) 99, Glucose 184 H, Calcium 10.3 H, Total Bilirubin 0.5, AST 29, ALT 25, Alkaline Phosphatase 60, Total Protein 7.2, Albumin 4.8, Globulin 2.4, Albumin/Globulin Ratio 2.0 H, Lipase 321 H Orders (Tests/Meds): ED MEDICATIONS Discontinued Medications Generic Name Dose Route Start Last Admin Trade Name Freq PRN Reason Stop Dose Admin Belladonna Alkaloids 60 ml 11/25/23 14:12 11/25/23 14:16 Belladonna Alkaloids 60 Ml Ml PO 11/25/23 14:13 60 ml ONCE ONE Administration ORDERS Category Date Time Status CBC w/Auto Diff [Complete Blood Count Auto Diff] Stat Lab 11/25/23 15:30 Completed CMP [Comprehensive Metabolic Panel] Stat Lab 11/25/23 15:30 Completed Lipase Stat Lab 11/25/23 15:30 Completed Medical Decision Narrative: 72-year-old female very well-known to this emergency department for chronic abdominal pain and multiple visits presenting with the same symptoms. No new symptoms, states she is having abdominal pain, wants to be checked out. History obtained the patient and chart review. On arrival, patient hemodynamically stable, immediately tearful, anxious, but very well-appearing. Abdominal exam is benign, I do not feel strongly about getting another CT scan as patient has had multiple over the past few weeks. Patient was post to follow-up with GI today, GI was stuck out of state, unable to get back in time for appointment. Basic labs to be drawn. Given GI cocktail. Prior to labs and reevaluation, care ended up to oncoming physician. Curing Press Operator disclaimer Much of this encounter note is an electronic compensation programs manager spoken language to printed text. Electronic compensation programs manager of the spoken language may permit errors. Although I have reviewed the note, some errors may still exist. Mo DO: On my assessment of the patient, she is resting comfortably. Abdominal exam is benign. She is actively asking when she can leave and stating that she does not want to miss her opportunity to get the bus home. She is worried about being here too late. Lipase is very mildly elevated, but abdominal exam is benign and she is tolerating oral intake, actually asking for food and drink at this time. Given this, I do not feel this requires further imaging or admission at this time, as patient has had multiple series of abdominal imaging in the past that did not demonstrate any acutely concerning pathology. I gave her strict return precautions and transport was arranged home for her. She was discharged after all questions were answered with close follow-up with GI as well as primary care. Critical Care <Lennox Conrad MD - Last Filed: 11/25/23 15:44> Critical Care Time Critical Care Time: No
--- NOTE | 2023-11-25 15:32 | PC.NURSE ---
rounded on pt. expressed no needs at this time.
[2023-11-25 15:35] LABS: Basophils % 0.5 % (0.1-2.0); Eosinophils % 0.5 % (0.1-12.0); Hematocrit 34.6 % (37.0-47.0); Hemoglobin 10.9 g/dL (12.2-16.2); Lymphocytes # 0.9 K/mm3 (0.7-4.5); Lymphocytes % 13.1 % (10-50); Mean Corpuscular HGB Conc 31.7 g/dL (31.8-35.4); Mean Corpuscular Hemoglobin 32.7 pg (27.0-31.2); Mean Corpuscular Volume 103.4 fl (81-99); Mean Platelet Volume 8.4 fl (7.4-10.4); Monocytes # 0.3 K/mm3 (0.1-1.0); Neutrophils # 5.5 K/mm3 (1.8-7.8); Neutrophils % 80.9 % (37.0-80.0); Platelet Count 238 K/mm3 (142-424); Red Blood Count 3.34 M/mm3 (4.20-5.40); Red Cell Distribution Width 15.7 % (11.5-17.5); White Blood Count 6.8 K/mm3 (4.8-10.8)
[2023-11-25 15:50] LABS: Alanine Aminotransferase 25 U/L (12-78); Albumin Level 4.8 g/dl (3.5-5.0); Alkaline Phosphatase 60 U/L (38-126); Aspartate Amino Transferase 29 U/L (14-36); Bilirubin,Total 0.5 mg/dl (0.2-1.3); Blood Urea Nitrogen 17 mg/dl (7-17); Calcium 10.3 mg/dl (8.4-10.2); Carbon Dioxide 25 mmol/L (22.0-30.0); Creatinine Clearance Estimated 40 mL/min (50-200); Estimated Glomerular Filt Rate 82 ml/min (>60); GFR (African American) 99 ML/MIN (>60); Globulin 2.4 g/dL (1.3-3.2); Glucose 184 mg/dl (74-100); Lipase 321 U/L (23-300); Total Protein,Serum 7.2 g/dl (6.3-8.2)
[2023-11-25 16:03] LABS: Anion Gap 17.5 mEq/L (5-15); Chloride 100 mmol/L (98-107); Potassium 4.5 mmoL/L (3.5-5.1); Sodium 138 mmol/L (136-145)
--- NOTE | 2023-11-25 16:44 | PC.NURSE ---
[facility] take [facility]
[2023-11-25 16:57] VITALS: BP 139/62; PULSE 71; RESP 16; TEMP 36.6; O2SAT 98
== END 2023-11-25 17:00 | disposition home or self-care (01) ==
PROVIDERS: Emergency Medicine; Emergency Provider Emergency Medicine
DX: R10.9 Unspecified abdominal pain (principal); G89.29 Other chronic pain; R74.8 Abnormal levels of other serum enzymes
CPT/HCPCS: 80053; 83690; 85025; 99283

== ENCOUNTER 2023-11-28 15:05 | Emergency (ER) | payer MEDICARE, OTHER, SELFPAY ==
[2023-11-28] VITALS (9 sets, daily range): BP systolic 129–157; BP diastolic 58–77; PULSE 63–82; RESP 18–20; TEMP 36.7–36.9; O2SAT 96–99; BMI 22.6
--- NOTE | 2023-11-28 15:15 | PC.NURSE ---
DR ROONEY AT BEDSIDE
--- NOTE | 2023-11-28 15:18 | CT_ITS ---
PROCEDURE INFORMATION: Exam: CTA Abdomen and Pelvis With Contrast Exam date and time: 11/28/2023 5:19 PM Age: 72 years old Clinical indication: Abdominal pain; Generalized; Additional info: Diffuse severe abdominal pain TECHNIQUE: Imaging protocol: Computed tomographic angiography of the abdomen and pelvis with contrast. Exam focused on the arteries. 3D rendering (Not supervised by radiologist): MIP and/or 3D reconstructed images were created by the technologist. Radiation optimization: All CT scans at this facility use at least one of these dose optimization techniques: automated exposure control; mA and/or kV adjustment per patient size (includes targeted exams where dose is matched to clinical indication); or iterative reconstruction. Contrast material: ISOVUE 370; Contrast volume: 75 ml; Contrast route: INTRAVENOUS (IV); COMPARISON: CT ABDOMEN PELVIS W CON 10/30/2023 2:25 PM FINDINGS: Lungs: Calcified granuloma left lung base Diaphragm: Moderate hiatal hernia Aorta: Scattered regions of atherosclerotic vascular calcification within the abdominal aorta and common iliac arteries. Celiac trunk and mesenteric arteries: No occlusion or significant stenosis. Renal arteries: No occlusion or significant stenosis. Right iliac arteries: No occlusion or significant stenosis. Left iliac arteries: No occlusion or significant stenosis. Liver: Persistent partially enhancing hypodense masses scattered throughout the liver. Findings most compatible with multiple hemangiomas. Gallbladder and bile ducts: Gallbladder unremarkable Pancreas: Pancreatic atrophy Spleen: The spleen is unremarkable. Adrenal glands: Adrenal glands unremarkable. Kidneys and ureters: No hydronephrosis. Stomach and bowel: Moderate stool burden. Colonic wall thickening with pericolonic edema and inflamed diverticulum involving the descending and sigmoid colon compatible with acute diverticulitis. Appendix: No evidence of appendicitis. Intraperitoneal space: Unremarkable. No free air. No significant fluid collection. Lymph nodes: Unremarkable. No enlarged lymph nodes. Urinary bladder: Unremarkable. No mass. Reproductive: Hysterectomy Bones/joints: Lumbar spondylosis with multilevel disc degeneration. Internal fixation device partially visualized left proximal femur with associated artifact. Soft tissues: Unremarkable. IMPRESSION: Colonic wall thickening with pericolonic edema and inflamed diverticulum involving the descending and sigmoid colon compatible with acute diverticulitis.
--- NOTE | 2023-11-28 15:35 | ED_ITS ---
Discharge Plan Disposition Patient Disposition: Home, Self-Care Prescriptions Prescriptions: New amoxicillin-pot clavulanate 875-125 mg tablet 1 tab PO BID Qty: 20 0RF ondansetron 4 mg tablet,disintegrating 4 mg PO Q8H PRN (Reason: nausea and vomiting) 4 Days Qty: 12 0RF No Action venlafaxine 37.5 mg tablet 37.5 mg PO BID metformin 500 mg tablet 500 mg PO BID quetiapine [Seroquel] 50 mg tablet 50 mg PO HS metoprolol succinate 50 mg tablet extended release 24 hr See Rx Instructions .ROUTE .COMPLEX Qty: 90 3RF Dose Instruction: TAKE ONE TABLET BY MOUTH ONCE A DAY FOR HIGH BLOOD PRESSURE Rx Instructions: TAKE ONE TABLET BY MOUTH ONCE A DAY FOR HIGH BLOOD PRESSURE acetaminophen [Pain Relief ES (acetaminophen)] 500 mg tablet 500 - 1,000 mg PO Q6HP PRN (Reason: Pain) clopidogrel [Plavix] 75 mg tablet 75 mg PO DAILY meclizine 12.5 mg tablet 12.5 mg PO DAILYP PRN (Reason: Dizziness Or Vertigo) sennosides-docusate sodium [Stool Softener-Stimulant Laxat] 8.6-50 mg Tablet 1 tab PO DAILY PRN (Reason: Constipation) Qty: 0 0RF diazepam 2 mg tablet 2 mg PO TID PRN (Reason: Anxiety) 30 Days Qty: 90 0RF alendronate 70 mg tablet 70 mg PO WEEKLY Rx Instructions: Take on omeprazole 20 mg capsule,delayed release(DR/EC) 20 mg PO DAILY calcium carbonate-vitamin D3 500 mg-2.5 mcg (100 unit) tablet,chewable 1 tab PO BID cholecalciferol (vitamin D3) 50 mcg (2,000 unit) tablet 2,000 unit PO DAILY atorvastatin 40 mg tablet 40 mg PO DAILY lisinopril 20 mg tablet 20 mg PO DAILY Hold Instructions: pending follow-up with PCP and recheck of potassium levels isosorbide mononitrate 30 mg tablet extended release 24 hr 30 mg PO DAILY famotidine 20 mg tablet 20 mg PO DAILY aspirin 81 mg tablet,chewable 81 mg PO DAILY gabapentin 100 mg capsule 200 mg PO HS Referrals Follow up/Referrals: Hansel Ruff MD [Primary Care Provider] - See instructions Activity Restrictions/Add. Instructions Additional Instructions/Restrictions: At this time it was felt you are safe to be discharged home. If new or worsening symptoms please do not hesitate to return the emergency department. For pain please take Tylenol and ibuprofen every 6 hours, it is okay to take them both at the same time. For nausea please take your medication as prescribed. Please slowly advance your diet from liquids to solids, do not eat any heavy greasy foods. Please take antibiotic as prescribed and follow-up with your family doctor within 48 hours for repeat evaluation to make sure things are headed in the right direction. Clinical Impressions Clinical Impression: Diverticulitis Instructions Patient Instructions: DI for Diverticulitis Discharge ED Provider: Kamlesh Wei General Adult HPI General Chief complaint: Abdominal Pain Stated complaint: ABD PAIN Time Seen by Provider: 11/28/23 15:12 Mode of Arrival: EMS Source of Information: Patient Limitations: No Limitations Description of Symptoms (Recalled from ER Triage Doc. by RN): PT C/O ABDOMINAL PAIN ABOVE UMBILICUS. RATES PAIN 10/10. UNABLE TO DESCRIBE PAIN. STATES I WANT TO GO TO [facility] AND THEY NEED TO FIGURE THIS OUT History of Present Illness HPI narrative: Patient is a 72-year-old female very well-known to our emergency department who presents emergency department for repeat evaluation of abdominal pain. Onset was acute, epigastric, same location, severe in intensity, occurring this morning. It waxes and wanes. Patient is largely inconsolable throughout questioning and exam. She has no other acute complaints at this time. Related Data Home Medications Medication Instructions Recorded Confirmed venlafaxine 37.5 mg tablet 37.5 mg PO BID mood 07/26/17 10/05/23 metformin 500 mg tablet 500 mg PO BID 05/13/18 10/05/23 quetiapine 50 mg tablet (Seroquel) 50 mg PO HS 12/13/18 10/05/23 acetaminophen 500 mg tablet (Pain 500 - 1,000 mg PO Q6HP PRN Pain 09/24/22 10/05/23 Relief Extra Strength (acetaminophen)) clopidogrel 75 mg tablet (Plavix) 75 mg PO DAILY 02/27/23 10/05/23 meclizine 12.5 mg tablet 12.5 mg PO DAILYP PRN Dizziness Or 02/28/23 10/05/23 Vertigo alendronate 70 mg tablet 70 mg PO WEEKLY 07/21/23 10/05/23 aspirin 81 mg chewable tablet 81 mg PO DAILY 07/21/23 10/05/23 atorvastatin 40 mg tablet 40 mg PO DAILY 07/21/23 10/05/23 calcium carbonate 500 mg-vitamin 1 tab PO BID 07/21/23 10/05/23 D3 2.5 mcg (100 unit) chewable tablet cholecalciferol (vitamin D3) 50 2,000 unit PO DAILY 07/21/23 10/05/23 mcg (2,000 unit) tablet famotidine 20 mg tablet 20 mg PO DAILY 07/21/23 10/05/23 gabapentin 100 mg capsule 200 mg PO HS 07/21/23 10/05/23 isosorbide mononitrate 30 mg 30 mg PO DAILY 07/21/23 10/05/23 tablet,extended release 24 hr lisinopril 20 mg tablet 20 mg PO DAILY 07/21/23 10/05/23 omeprazole 20 mg capsule,delayed 20 mg PO DAILY 07/21/23 10/05/23 release Previous Rx's Medication Instructions Recorded diazepam 2 mg tablet 2 mg PO TID PRN Anxiety 30 days 03/03/23 #90 tabs sennosides 8.6 mg-docusate sodium 1 tab PO DAILY PRN Constipation #0 03/03/23 50 mg tablet (Stool tabs Softener-Stimulant Laxative) metoprolol succinate 50 mg See Rx Instructions .Route 10/11/23 tablet,extended release 24 hr .COMPLEX #90 tabs amoxicillin 875 mg-potassium 1 tab PO BID diverticulitis #20 11/28/23 clavulanate 125 mg tablet tabs ondansetron 4 mg disintegrating 4 mg PO Q8H PRN nausea and 11/28/23 tablet vomiting 4 days #12 tabs Allergies Allergy/AdvReac Type Severity Reaction Status Date / Time codeine [CODEINE] Allergy Unknown WEAK Verified 10/06/23 07:45 hydrochlorothiazide Allergy Unknown I-RASH Verified 10/06/23 07:45 [HYDROCHLOROTHIAZIDE] hydrocodone [HYDROCODONE] Allergy Unknown I-RASH Verified 10/06/23 07:45 metoclopramide Allergy Unknown SLURRED Verified 10/06/23 07:45 [METOCLOPRAMIDE] SPEECH, WEAK nifedipine [NIFEDIPINE] Allergy Unknown I-HIVES Verified 10/06/23 07:45 prazosin [PRAZOSIN] Allergy Unknown ITCHING/WEA Verified 10/06/23 07:45 K triamterene [TRIAMTERENE] Allergy Unknown I-RASH Verified 10/06/23 07:45 [facility] Disclaimer: The information contained in this section may have been updated after the patient was seen, as this information can be updated by other users. Medical History Esophageal thickening Esophageal thickening Femur fracture, left History of left heart catheterization Coronary artery disease Carotid artery stenosis Surgical History History of permanent cardiac pacemaker placement S/P CABG x 1 Status post aortic valve replacement with bioprosthetic valve Family History Other Family history of cancer Family history of diabetes mellitus type II Family history of hypertension Family history of myocardial infarction Social History Smoking Status: Never smoker second hand exposure: Yes alcohol intake: never substance use type: denies use current occupational status: retired Travel in the last 8 weeks: None household members: none housing: apartment lives independently: Yes marital status: single education level: middle school service: No long-term: No current occupational exposures/hazards: No caffeine: Yes do you feel safe at home: Yes victim of physical abuse: No victim of emotional abuse: No victim of sexual abuse: No would you like helpful sources: No ROS Obtained: Yes Systems reviewed as appropriate & no additional complaints except as documented Physical Exam General General appearance: alert and in distress Head Head exam: atraumatic and normocephalic Eye Eye exam: Present PERRL ENT ENT exam: Present mucous membranes moist Neck Neck exam: Present normal inspection Chest Chest inspection: Present normal inspection and symmetric chest wall rise Respiratory Respiratory exam: Present normal lung sounds bilaterally; Absent respiratory distress Cardiovascular Cardiovascular exam: Present regular rate and normal rhythm Abdominal Exam Abdominal exam: Present soft and tenderness (Epigastric) Extremities Exam Extremities exam: Present normal inspection Neurological Exam Neurological exam: Present alert Psychiatric Psychiatric exam: Present normal affect Skin Skin exam: Present warm and dry Medical Decision Making Chet Inquiry Pt receiving controlled substance: No Vital Signs: 11/28/23 15:05 11/28/23 16:18 11/28/23 17:00 Temperature 98.0 F Temperature Source Oral Pulse Rate 74 75 Pulse Rate [Radial] 82 Respiratory Rate 18 20 Blood Pressure 130/63 149/77 H Blood Pressure [Right Arm] 157/70 H Blood Pressure Mean [Right Arm] 99 Blood Pressure Source [Right Arm] Automatic Cuff Blood Pressure Position Supine Blood Pressure Position [Right Arm] Sitting 02 Sat by Pulse Oximetry 99 99 Oxygen Delivery Method Room Air Room Air 11/28/23 17:30 11/28/23 18:00 11/28/23 18:01 Temperature Temperature Source Pulse Rate 74 76 76 Pulse Rate [Radial] Respiratory Rate Blood Pressure 152/60 H 141/61 H 141/61 H Blood Pressure [Right Arm] Blood Pressure Mean [Right Arm] Blood Pressure Source [Right Arm] Blood Pressure Position Blood Pressure Position [Right Arm] 02 Sat by Pulse Oximetry 96 97 98 Oxygen Delivery Method Room Air Room Air Room Air 11/28/23 18:30 11/28/23 19:00 Temperature Temperature Source Pulse Rate 72 71 Pulse Rate [Radial] Respiratory Rate Blood Pressure 146/66 H 129/58 L Blood Pressure [Right Arm] Blood Pressure Mean [Right Arm] Blood Pressure Source [Right Arm] Blood Pressure Position Blood Pressure Position [Right Arm] 02 Sat by Pulse Oximetry 97 97 Oxygen Delivery Method Room Air Room Air Lab Data Lab Results 11/28/23 15:35: WBC 6.7, RBC 3.09 L, Hgb 10.6 L, Hct 31.0 L, MCV 100.5 H, MCH 34.3 H, MCHC 34.1, RDW 15.6, Plt Count 234, MPV 8.3, Neut % (Auto) 74.9, Lymph % (Auto) 16.8, [place] % (Auto) 7.4, Eos % (Auto) 0.5, Baso % (Auto) 0.4, Neut # (Auto) 5.0, Lymph # (Auto) 1.1, [place] # (Auto) 0.5, Eos # (Auto) 0.0, Baso # (Auto) 0.0, Sodium 136, Potassium 4.7, Chloride 101, Carbon Dioxide 25, Anion Gap 14.7, BUN 14, Creatinine 0.70, Estimated Creat Clear 41, Estimated GFR 82, Est GFR ( Amer) 99, Glucose 135 H, Calcium 10.2, Total Bilirubin 0.7, AST 35, ALT 24, Alkaline Phosphatase 47, Total Protein 7.4, Albumin 4.7, Globulin 2.7, Albumin/Globulin Ratio 1.7, Lipase 40 11/28/23 16:22: Urine Color Yellow, Urine Appearance Clear, Urine pH 6.0, Ur Specific [place] <= 1.005, Urine Protein Negative, Urine Glucose (UA) Negative, Urine Ketones Negative, Urine Blood Trace-i, Urine Nitrate Negative, Urine Bilirubin Negative, Urine Urobilinogen 0.2, Ur Leukocyte Esterase 1+ A, Urine RBC Occasional, Urine WBC 3-5, Ur Squamous Epith Cells Occasional, Urine Bacteria Trace, Urine Yeast 1+ 11/28/23 18:10: Lactate 2.3 H 11/28/23 15:35 11/28/23 15:35 Orders (Tests/Meds): ED MEDICATIONS Generic Name Dose Route Start Last Admin Trade Name Freq PRN Reason Stop Dose Admin Amoxicillin/Clavulanate Potassium 1 each 11/28/23 19:37 11/28/23 19:43 Amoxicillin/Clavulanate Potassium 875/125mg Tablet PO 11/28/23 19:38 1 each ONCE ONE Administration Discontinued Medications Generic Name Dose Route Start Last Admin Trade Name Freq PRN Reason Stop Dose Admin Acetaminophen 1,000 mg 11/28/23 15:15 11/28/23 15:37 Acetaminophen 1,000mg/100ml Vial IV 11/28/23 15:16 1,000 mg ONCE ONE Administration Belladonna Alkaloids 60 ml 11/28/23 15:15 11/28/23 15:37 Belladonna Alkaloids 60 Ml Ml PO 11/28/23 15:16 60 ml ONCE ONE Administration Lactated Ringer's 1,000 mls @ 999 mls/hr 11/28/23 15:39 11/28/23 17:00 Lactated Ringer's 1000 Ml Bag IV 11/28/23 16:39 999 mls/hr .Q1H1M ONE Administration Iopamidol 70 ml 11/28/23 16:23 11/28/23 16:25 Iopamidol-370 (76%);100ml Bottle IV 11/28/23 16:24 70 ml ONCE ONE Administration Morphine Sulfate 4 mg 11/28/23 15:17 11/28/23 15:37 Morphine 4mg/Ml Syringe IV 11/28/23 15:18 4 mg ONCE ONE Administration Ondansetron HCl 4 mg 11/28/23 15:15 11/28/23 15:37 Ondansetron 4mg/2ml Vial IV 11/28/23 15:16 4 mg ONCE ONE Administration Sodium Chloride 10 ml 11/28/23 16:23 11/28/23 16:25 Sodium Chloride 0.9% 10ml Syr (Rad Only) IV 11/28/23 16:24 10 ml ONCE ONE Administration Sodium Chloride 50 ml 11/28/23 16:23 11/28/23 16:24 0.9 % Sodium Chloride 50 Ml Vial IV 11/28/23 16:24 40 ml ONCE ONE Administration ORDERS Category Date Time Status CT angio abdomen pelvis Stat Cat Scan 11/28/23 15:18 Completed CBC w/Auto Diff [Complete Blood Count Auto Diff] Stat Lab 11/28/23 15:35 Completed CMP [Comprehensive Metabolic Panel] Stat Lab 11/28/23 15:35 Completed Lactic Acid Stat Lab 11/28/23 18:10 Completed Lipase Stat Lab 11/28/23 15:35 Completed UA [Urinalysis and Microscopic] Stat Lab 11/28/23 16:22 Completed Urine Culture Stat Micro 11/28/23 16:22 Received Medical Decision Narrative: In summary patient is 72-year-old female past medical history described above who presents emergency department for repeat evaluation of abdominal pain. Patient is hemodynamically stable nontoxic-appearing upon arrival, distractible abdominal exam, inconsolable on questioning. Differential diagnosis includes pancreatitis, occult mass, ischemic colitis, secondary gain, among others. Workup be conducted with hematologic labs, CT abdomen pelvis angiography given that patient has had multiple CT abdomen pelvis with IV contrast that been unremarkable. Urinalysis will be obtained. Initial interventions include GI cocktail, antiemetic, morphine, crystalloid bolus. Unfortunately patient has never obtained a GI appointment although she says that she will call and schedule one . Workup reviewed by me, hematologic labs are largely nonactionable, no significant leukocytosis, mildly elevated lactate, urinalysis interpreted by me and not consistent with infection. Patient has no symptomatic dysuria. CT imaging shows colonic wall thickening with pericolonic edema and inflamed diverticulum involving the descending and sigmoid colon compatible with acute diverticulitis. Upon repeat evaluation patient was hemodynamically stable and well-appearing, given mild diverticulitis and acceptable resolution of pain shared decision-making discussion was had and patient wishes to pursue outpatient management at this time. Given his first dose of Augmentin was administered in the emergency department and patient was discharged with a course of Augmentin and will follow-up with her family doctor next week and was given multiple return precautions and verbalized understanding. Procedure: Procedure performed ultrasound-guided IV. Procedure performed by Kamlesh Wei. Using real-time ultrasound a long 18-gauge peripheral IV was placed in the left basilic vein. Vessel cannulated was patent. Images were not saved to permanent archive. Patient tolerated the procedure with difficulty. There were no immediate complications. Procedure: Procedure performed was ultrasound-guided IV. Procedure performed by Kamlesh Wei. Using real-time ultrasound a long 18-gauge peripheral IV was placed in the right basilic vein. Vessel cannula was patent. Patient tolerated procedure well. Images were not saved to permanent archive. There were no immediate complications. Critical Care Critical Care Time Critical Care Time: No
[2023-11-28] MEDS: ACETAMINOPHEN 1,000MG/100ML VIAL 1000 MG IV (15:37)
[2023-11-28] MEDS: ONDANSETRON 4MG/2ML VIAL 4 MG IV (15:37)
[2023-11-28] MEDS: MORPHINE 4MG/ML SYRINGE 4 MG IV (15:37)
[2023-11-28] MEDS: BELLADONNA ALKALOIDS 60 ML ML PO (15:37)
[2023-11-28 15:44] LABS: Basophils % 0.4 % (0.1-2.0); Eosinophils % 0.5 % (0.1-12.0); Hemoglobin 10.6 g/dL (12.2-16.2); Lymphocytes # 1.1 K/mm3 (0.7-4.5); Lymphocytes % 16.8 % (10-50); Mean Corpuscular HGB Conc 34.1 g/dL (31.8-35.4); Mean Corpuscular Hemoglobin 34.3 pg (27.0-31.2); Mean Corpuscular Volume 100.5 fl (81-99); Mean Platelet Volume 8.3 fl (7.4-10.4); Monocytes # 0.5 K/mm3 (0.1-1.0); Monocytes % 7.4 % (1.7-9.3); Neutrophils % 74.9 % (37.0-80.0); Platelet Count 234 K/mm3 (142-424); Red Blood Count 3.09 M/mm3 (4.20-5.40); Red Cell Distribution Width 15.6 % (11.5-17.5); White Blood Count 6.7 K/mm3 (4.8-10.8)
[2023-11-28 16:07] LABS: Chloride 101 mmol/L (98-107); Potassium 4.7 mmoL/L (3.5-5.1); Sodium 136 mmol/L (136-145)
[2023-11-28 16:09] LABS: Alanine Aminotransferase 24 U/L (12-78); Alkaline Phosphatase 47 U/L (38-126); Anion Gap 14.7 mEq/L (5-15); Aspartate Amino Transferase 35 U/L (14-36); Bilirubin,Total 0.7 mg/dl (0.2-1.3); Blood Urea Nitrogen 14 mg/dl (7-17); Carbon Dioxide 25 mmol/L (22.0-30.0); Creatinine Clearance Estimated 41 mL/min (50-200); Estimated Glomerular Filt Rate 82 ml/min (>60); GFR (African American) 99 ML/MIN (>60); Lipase 40 U/L (23-300)
[2023-11-28 16:10] LABS: Albumin Level 4.7 g/dl (3.5-5.0); Albumin/Globulin Ratio 1.7 (1.1-1.8); Calcium 10.2 mg/dl (8.4-10.2); Globulin 2.7 g/dL (1.3-3.2); Glucose 135 mg/dl (74-100); Total Protein,Serum 7.4 g/dl (6.3-8.2)
[2023-11-28] MEDS: 0.9 % SODIUM CHLORIDE 50 ML VIAL IV (16:24)
[2023-11-28] MEDS: SODIUM CHLORIDE 0.9% 10ML SYR (RAD ONLY) 10 ML IV (16:25)
[2023-11-28] MEDS: IOPAMIDOL-370 (76%);100ML BOTTLE 70 ML IV (16:25)
[2023-11-28 16:27] LABS: Microscopic, Urine URINE MICROSCOPIC (MICROSCOPIC)
[2023-11-28 16:29] LABS: Appearance,Urine CLEAR (Clear); Bilirubin,Urine Negative (Negative); Blood, Urine TRACE-I (Negative); Color,Urine YELLOW (Yellow); Glucose,Urine (UA) Negative (Negative); Ketones,Urine Negative (Negative); Leukocyte Esterase,Urine 1+ (Negative); Nitrate,Urine Negative (Negative); Protein,Urine Negative (Negative); Specific Gravity, Urine <= 1.005 (1.005-1.030); Urobilinogen,Urine 0.2 EU/dl (0.2)
[2023-11-28 16:55] LABS: Bacteria,Urine Trace /lpf; Yeast,Urine 1+ /lpf
[2023-11-28 16:56] LABS: RBC,Urine Occasional #/hpf (0-3); Squamous Epithelial Cell,Urine Occasional #/hpf (0-5)
[2023-11-28] MEDS: LACTATED RINGERS 1000ML 1,000 ML 999 ML IV (17:00)
--- NOTE | 2023-11-28 17:06 | PC.NURSE ---
Addendum entered by Tressa Gardner, EMT-P 11/28/23 17:08: ERROR Original Note: IV RESTARTED , PT GONE BACK TO CT
--- NOTE | 2023-11-28 17:12 | PC.NURSE ---
NEW IV STARTED WAITING TO GO BACK TO CT
--- NOTE | 2023-11-28 17:25 | PC.NURSE ---
PT BACK FROM CT
[2023-11-28 18:33] LABS: Lactic Acid 2.3 mmol/L (0.7-2.1)
--- NOTE | 2023-11-28 19:24 | PC.NURSE ---
ER at bedside
[2023-11-28] MEDS: AMOXICILLIN/CLAVULANATE POTASSIUM 875/125MG TABLET 1 EACH PO (19:43)
--- NOTE | 2023-11-28 19:55 | PC.NURSE ---
attempted 2nd call to [facility] [phone], re picking patient up
--- NOTE | 2023-11-28 20:52 | PC.NURSE ---
got navneetold of other contact listed in chart and she stated that kevon is not answering the phone bc she is already asleep and has to work at 0300. will attempt other trasnport methods
--- NOTE | 2023-11-28 20:59 | PC.NURSE ---
Ronal Reynaga is picking patient up to transport home, patient notified and set in a wheel chair
--- NOTE | 2023-12-02 10:37 | PC.NURSE ---
DISCUSSED URINE CULTURE WITH DR LAKHANI, NO NEW ORDERS. PT DC'D ON AUGMENTIN
== END 2023-11-28 21:05 | disposition home or self-care (01) ==
PROVIDERS: Emergency Provider Emergency Medicine; PCP Internal Medicine
DX: R10.13 Epigastric pain (principal); K57.32 Diverticulitis of large intestine without perforation or abscess without bleeding; B96.29 Other Escherichia coli [E. coli] as the cause of diseases classified elsewhere; E11.9 Type 2 diabetes mellitus without complications; I65.29 Occlusion and stenosis of unspecified carotid artery; I11.9 Hypertensive heart disease without heart failure; I25.10 Atherosclerotic heart disease of native coronary artery without angina pectoris; Z79.84 Long term (current) use of oral hypoglycemic drugs; Z95.1 Presence of aortocoronary bypass graft; Z95.0 Presence of cardiac pacemaker
CPT/HCPCS: 36415; 74174; 80053; 81001; 83605; 83690; 85025; 87086; 87088; 87186; 96361; 96374; 96375; 99285; J0131; J2405; Q9967

== ENCOUNTER 2023-12-02 13:32 | Emergency (ER) | payer MEDICARE, OTHER, SELFPAY ==
[2023-12-02 13:39] VITALS: BP 137/67; PULSE 76; RESP 20; TEMP 36.9; O2SAT 97; BMI 22.6
--- NOTE | 2023-12-02 13:45 | ECG_ITS ---
APPROVED REPORT Exam: Resting ECG HR:74 bpm ECG Measurements Heart Rate 74 AXES SC 148 P 73 QRSd 170 QRS -57 QT 440 T 76 QTc 467 Conclusion ELECTRONIC VENTRICULAR PACEMAKER Electronically signed by : LUCIE LAKHANI, 12/02/2023 15:53:08
--- NOTE | 2023-12-02 13:53 | XR_ITS ---
FINAL REPORT CLINICAL HISTORY: cp COMPARISON: 02/21/2023 FINDINGS: A single portable view of the chest was obtained. Mild cardiomegaly is present. A left subclavian pacemaker is present as well. The mediastinum is within normal limits. No acute pulmonary abnormality is identified. Chronic changes are present in the lung bases. The bony thorax is intact. IMPRESSION: No active cardiopulmonary disease. Cardiomegaly and chronic changes in the lung bases. Reviewed, Interpreted and Dictated by Ryan Lomeli MD Transcribed by Darling Hernandez Authenticated and [facility]
[2023-12-02 14:00] VITALS: BP 143/73; PULSE 74; RESP 17; O2SAT 99
[2023-12-02 14:05] LABS: Basophils % 0.6 % (0.1-2.0); Eosinophils % 0.6 % (0.1-12.0); Hematocrit 31.1 % (37.0-47.0); Hemoglobin 10.7 g/dL (12.2-16.2); Lymphocytes # 1.2 K/mm3 (0.7-4.5); Lymphocytes % 17.4 % (10-50); Mean Corpuscular HGB Conc 34.4 g/dL (31.8-35.4); Mean Corpuscular Hemoglobin 34.2 pg (27.0-31.2); Mean Corpuscular Volume 99.6 fl (81-99); Mean Platelet Volume 7.9 fl (7.4-10.4); Monocytes # 0.4 K/mm3 (0.1-1.0); Monocytes % 5.9 % (1.7-9.3); Neutrophils % 75.6 % (37.0-80.0); Platelet Count 221 K/mm3 (142-424); Red Blood Count 3.12 M/mm3 (4.20-5.40); Red Cell Distribution Width 15.7 % (11.5-17.5); White Blood Count 6.6 K/mm3 (4.8-10.8)
[2023-12-02 14:09] LABS: Alanine Aminotransferase 22 U/L (12-78); Albumin Level 4.5 g/dl (3.5-5.0); Alkaline Phosphatase 65 U/L (38-126); Anion Gap 15.3 mEq/L (5-15); Aspartate Amino Transferase 25 U/L (14-36); Bilirubin,Total 0.5 mg/dl (0.2-1.3); Blood Urea Nitrogen 14 mg/dl (7-17); Calcium 9.8 mg/dl (8.4-10.2); Carbon Dioxide 26 mmol/L (22.0-30.0); Chloride 96 mmol/L (98-107); Creatinine Clearance Estimated 41 mL/min (50-200); Estimated Glomerular Filt Rate 70 ml/min (>60); GFR (African American) 85 ML/MIN (>60); Globulin 2.2 g/dL (1.3-3.2); Glucose 149 mg/dl (74-100); Potassium 4.3 mmoL/L (3.5-5.1); Sodium 133 mmol/L (136-145); Total Protein,Serum 6.7 g/dl (6.3-8.2)
[2023-12-02 14:28] LABS: Troponin I < 0.01 ng/ml (0.00-0.034)
[2023-12-02 14:30] VITALS: BP 149/69; PULSE 73; RESP 16; O2SAT 98
--- NOTE | 2023-12-02 15:23 | ED_ITS ---
Discharge Plan Disposition Patient Disposition: Home, Self-Care Prescriptions Prescriptions: No Action venlafaxine 37.5 mg tablet 37.5 mg PO BID metformin 500 mg tablet 500 mg PO BID quetiapine [Seroquel] 50 mg tablet 50 mg PO HS metoprolol succinate 50 mg tablet extended release 24 hr See Rx Instructions .ROUTE .COMPLEX Qty: 90 3RF Dose Instruction: TAKE ONE TABLET BY MOUTH ONCE A DAY FOR HIGH BLOOD PRESSURE Rx Instructions: TAKE ONE TABLET BY MOUTH ONCE A DAY FOR HIGH BLOOD PRESSURE acetaminophen [Pain Relief ES (acetaminophen)] 500 mg tablet 500 - 1,000 mg PO Q6HP PRN (Reason: Pain) clopidogrel [Plavix] 75 mg tablet 75 mg PO DAILY meclizine 12.5 mg tablet 12.5 mg PO DAILYP PRN (Reason: Dizziness Or Vertigo) sennosides-docusate sodium [Stool Softener-Stimulant Laxat] 8.6-50 mg Tablet 1 tab PO DAILY PRN (Reason: Constipation) Qty: 0 0RF diazepam 2 mg tablet 2 mg PO TID PRN (Reason: Anxiety) 30 Days Qty: 90 0RF alendronate 70 mg tablet 70 mg PO WEEKLY Rx Instructions: Take on omeprazole 20 mg capsule,delayed release(DR/EC) 20 mg PO DAILY calcium carbonate-vitamin D3 500 mg-2.5 mcg (100 unit) tablet,chewable 1 tab PO BID cholecalciferol (vitamin D3) 50 mcg (2,000 unit) tablet 2,000 unit PO DAILY atorvastatin 40 mg tablet 40 mg PO DAILY lisinopril 20 mg tablet 20 mg PO DAILY Hold Instructions: pending follow-up with PCP and recheck of potassium levels isosorbide mononitrate 30 mg tablet extended release 24 hr 30 mg PO DAILY famotidine 20 mg tablet 20 mg PO DAILY aspirin 81 mg tablet,chewable 81 mg PO DAILY gabapentin 100 mg capsule 200 mg PO HS amoxicillin-pot clavulanate 875-125 mg tablet 1 tab PO BID Qty: 20 0RF ondansetron 4 mg tablet,disintegrating 4 mg PO Q8H PRN (Reason: nausea and vomiting) 4 Days Qty: 12 0RF Referrals Follow up/Referrals: Hansel Ruff MD [Primary Care Provider] - See instructions Clinical Impressions Clinical Impression: Chest pain Discharge ED Provider: Lennox Conrad HPI <Lennox Conrad MD - Last Filed: 12/02/23 15:41> General Chief Complaint: Chest Pain Stated Complaint: chest pain Time Seen by Provider: 12/02/23 14:04 Mode of Arrival: EMS Source of Information: Patient Limitations: No Limitations Description of Symptoms (Recalled from ER Triage Doc. by RN): pt to ed c/o center cp that started at rest. pt denies SOA. ems reports giving 1 nitro and 324mg of asa in route. pt reports relief of pain. History of Present Illness HPI narrative: Please note that above description of symptoms, in this electronic medical record under categorization of recalled from ER triage doctor by RN are reflective of an initial nursing assessment, however, is not reflective of my full history and physical exam that was personally taken and clarified. Consequentially, this preceding description of symptoms, which may include the patient's categorized chief complaint in the EMR, do not reflect my personal clinical impression, and the ultimate description of history of present illness and patient stated complaints should be deferred to this section of the note. Unless stated otherwise or congruent with this section of the note, additional signs, symptoms, or incongruence should be interpreted as inaccurate with my clinical impression. Related Data Home Medications Medication Instructions Recorded Confirmed venlafaxine 37.5 mg tablet 37.5 mg PO BID mood 07/26/17 10/05/23 metformin 500 mg tablet 500 mg PO BID 05/13/18 10/05/23 quetiapine 50 mg tablet (Seroquel) 50 mg PO HS 12/13/18 10/05/23 acetaminophen 500 mg tablet (Pain 500 - 1,000 mg PO Q6HP PRN Pain 09/24/22 10/05/23 Relief Extra Strength (acetaminophen)) clopidogrel 75 mg tablet (Plavix) 75 mg PO DAILY 02/27/23 10/05/23 meclizine 12.5 mg tablet 12.5 mg PO DAILYP PRN Dizziness Or 02/28/23 10/05/23 Vertigo alendronate 70 mg tablet 70 mg PO WEEKLY 07/21/23 10/05/23 aspirin 81 mg chewable tablet 81 mg PO DAILY 07/21/23 10/05/23 atorvastatin 40 mg tablet 40 mg PO DAILY 07/21/23 10/05/23 calcium carbonate 500 mg-vitamin 1 tab PO BID 07/21/23 10/05/23 D3 2.5 mcg (100 unit) chewable tablet cholecalciferol (vitamin D3) 50 2,000 unit PO DAILY 07/21/23 10/05/23 mcg (2,000 unit) tablet famotidine 20 mg tablet 20 mg PO DAILY 07/21/23 10/05/23 gabapentin 100 mg capsule 200 mg PO HS 07/21/23 10/05/23 isosorbide mononitrate 30 mg 30 mg PO DAILY 07/21/23 10/05/23 tablet,extended release 24 hr lisinopril 20 mg tablet 20 mg PO DAILY 07/21/23 10/05/23 omeprazole 20 mg capsule,delayed 20 mg PO DAILY 07/21/23 10/05/23 release Previous Rx's Medication Instructions Recorded diazepam 2 mg tablet 2 mg PO TID PRN Anxiety 30 days 03/03/23 #90 tabs sennosides 8.6 mg-docusate sodium 1 tab PO DAILY PRN Constipation #0 03/03/23 50 mg tablet (Stool tabs Softener-Stimulant Laxative) metoprolol succinate 50 mg See Rx Instructions .Route 10/11/23 tablet,extended release 24 hr .COMPLEX #90 tabs amoxicillin 875 mg-potassium 1 tab PO BID diverticulitis #20 11/28/23 clavulanate 125 mg tablet tabs ondansetron 4 mg disintegrating 4 mg PO Q8H PRN nausea and 11/28/23 tablet vomiting 4 days #12 tabs Allergies Allergy/AdvReac Type Severity Reaction Status Date / Time codeine [CODEINE] Allergy Unknown WEAK Verified 10/06/23 07:45 hydrochlorothiazide Allergy Unknown I-RASH Verified 10/06/23 07:45 [HYDROCHLOROTHIAZIDE] hydrocodone [HYDROCODONE] Allergy Unknown I-RASH Verified 10/06/23 07:45 metoclopramide Allergy Unknown SLURRED Verified 10/06/23 07:45 [METOCLOPRAMIDE] SPEECH, WEAK nifedipine [NIFEDIPINE] Allergy Unknown I-HIVES Verified 10/06/23 07:45 prazosin [PRAZOSIN] Allergy Unknown ITCHING/WEA Verified 10/06/23 07:45 K triamterene [TRIAMTERENE] Allergy Unknown I-RASH Verified 10/06/23 07:45 PFS <Lennox Conrad MD - Last Filed: 12/02/23 15:41> [facility] Disclaimer: The information contained in this section may have been updated after the patient was seen, as this information can be updated by other users. Medical History Esophageal thickening Esophageal thickening Femur fracture, left History of left heart catheterization Coronary artery disease Carotid artery stenosis Surgical History History of permanent cardiac pacemaker placement S/P CABG x 1 Status post aortic valve replacement with bioprosthetic valve Family History Other Family history of cancer Family history of diabetes mellitus type II Family history of hypertension Family history of myocardial infarction Social History Smoking Status: Never smoker second hand exposure: Yes alcohol intake: never substance use type: denies use current occupational status: retired Travel in the last 8 weeks: None household members: none housing: apartment lives independently: Yes marital status: single education level: middle school service: No prison: No current occupational exposures/hazards: No caffeine: Yes do you feel safe at home: Yes victim of physical abuse: No victim of emotional abuse: No victim of sexual abuse: No would you like helpful sources: No <Lennox Conrad MD - Last Filed: 12/02/23 15:41> ROS Obtained: Yes All systems reviewed & no additional complaints except as documented Physical Exam <Lennox Conrad MD - Last Filed: 12/02/23 15:41> General General appearance: alert and other Neck Neck exam: Present trachea midline Chest Chest inspection: Present normal inspection and symmetric chest wall rise Respiratory Respiratory exam: Present normal lung sounds bilaterally; Absent respiratory distress, wheezes, stridor, accessory muscle use or prolonged expiratory phase Cardiovascular Cardiovascular exam: Present regular rate and normal rhythm Extremities Exam Extremities exam: Absent edema Neurological Exam Neurological exam: Present alert, oriented X3 and CN II-XII intact Skin Skin exam: Present warm and dry; Absent cyanosis, diaphoresis or pallor HEART Score <Lennox Conrad MD - Last Filed: 12/02/23 15:41> HEART Score HEART Score assessment performed?: Yes HEART Score: 5 <Karo Cadena MD - Last Filed: 12/02/23 17:23> HEART Score HEART Score assessment performed?: Yes History (anamnesis): Slightly suspicious ECG: Non-specific disturbance Age: >65 years Risk factors: Atherosclerosis history Troponin: </= normal limit HEART Score: 5 Critical Care <Lennox Conrad MD - Last Filed: 12/02/23 15:41> Critical Care Time Critical Care Time: No Medical Decision Making <Lennox Conrad MD - Last Filed: 12/02/23 15:41> Medical Records Medical records reviewed: Yes I reviewed the patient's medical records. Chet Inquiry Pt receiving controlled substance: No Chet was queried for this patient: No Vital Signs Vital Signs: 12/02/23 13:39 12/02/23 14:00 12/02/23 14:30 Temperature 98.4 F Temperature Source Oral Pulse Rate 74 73 Pulse Rate [Left Radial] 76 Respiratory Rate 20 17 16 Blood Pressure 143/73 H 149/69 H Blood Pressure [Right Arm] 137/67 Blood Pressure Mean 85 86 Blood Pressure Mean [Right Arm] 90 02 Sat by Pulse Oximetry 97 99 98 Oxygen Delivery Method Room Air 12/02/23 15:32 Temperature Temperature Source Pulse Rate 75 Pulse Rate [Left Radial] Respiratory Rate 15 Blood Pressure 167/85 H Blood Pressure [Right Arm] Blood Pressure Mean Blood Pressure Mean [Right Arm] 02 Sat by Pulse Oximetry 98 Oxygen Delivery Method Room Air Lab Data Labs: Lab Results 12/02/23 13:45: WBC 6.6, RBC 3.12 L, Hgb 10.7 L, Hct 31.1 L, MCV 99.6 H, MCH 34.2 H, MCHC 34.4, RDW 15.7, Plt Count 221, MPV 7.9, Neut % (Auto) 75.6, Lymph % (Auto) 17.4, [place] % (Auto) 5.9, Eos % (Auto) 0.6, Baso % (Auto) 0.6, Neut # (Auto) 5.0, Lymph # (Auto) 1.2, [place] # (Auto) 0.4, Eos # (Auto) 0.0, Baso # (Auto) 0.0, Sodium 133 L, Potassium 4.3, Chloride 96 L, Carbon Dioxide 26, Anion Gap 15.3 H, BUN 14, Creatinine 0.80, Estimated Creat Clear 41, Estimated GFR 70, Est GFR ( Amer) 85, Glucose 149 H, Calcium 9.8, Total Bilirubin 0.5, AST 25, ALT 22, Alkaline Phosphatase 65, Troponin I < 0.01, Total Protein 6.7, Albumin 4.5, Globulin 2.2, Albumin/Globulin Ratio 2.0 H 12/02/23 16:37: Troponin I < 0.01 12/02/23 13:45 12/02/23 13:45 Response Orders (Tests/Meds): ORDERS Category Date Time Status XR chest portable Stat Exams 12/02/23 13:53 Taken Complete Blood Count Auto Diff Stat Lab 12/02/23 13:45 Completed Comprehensive Metabolic Panel Stat Lab 12/02/23 13:45 Completed Troponin I Q3H Lab 12/02/23 16:37 Completed Troponin I Q3H Lab 12/02/23 20:00 Ordered Troponin I Stat Lab 12/02/23 13:45 Completed MDM Narrative Medical Decision Narrative: 72-year-old female well-known to this emergency department presenting with chest pain. Patient states that it started right before she got here about an hour. Substernal, does not radiate, associated nausea without vomiting. No shortness of breath, diaphoresis, or any other complaints. History was obtained via conversation with patient. On arrival, patient hemodynamically stable, alert, oriented x4, appropriate, GCS 15, moving all extremities spontaneously, pupils equal and reactive to light. Full physical exam performed and significant for anxious appearing woman in no acute distress. Speaking in full sentences, hemodynamically stable, afebrile, normotensive, saturating appropriately on room air. Differential includes microvascular coronary artery disease, CHF, ACS, MS, coronary artery dissection, pneumothorax, PE, dissection, pericarditis, myocarditis, pneumothorax, aortic aneurysm, pneumonia, bronchitis, among others. Patient was given aspirin p.o. for symptomatic management and correction of underlying abnormalities. Workup independently interpreted and significant for nonactionable CBC or chemistry, initial troponin negative. Chest x-ray without acute cardiopulmonary airspace disease, final read pending at time of handoff. See radiology read for full review of final results. Independent interpretation of EKG shows V paced rhythm Sgarbossa negative. Patient placed on continuous cardiac monitoring and continuous pulse ox with initial blood pressure 137/67, heart rate 76, saturation 97 on room air. Heart score 5. Patient was placed in observation beginning at 3 PM in order to rule out evolving MS with delta troponins and determine need for admission versus home-going. The patient was provided serial exams and cardiac monitoring while awaiting results. Prior to final results and disposition, care handed off to oncoming physician. Agricultural Extension Specialist disclaimer Much of this encounter note is an electronic dowel setting machine operator spoken language to printed text. Electronic dowel setting machine operator of the spoken language may permit errors. Although I have reviewed the note, some errors may still exist. <Kaor Cadena MD - Last Filed: 12/02/23 17:23> Vital Signs Vital Signs: 12/02/23 13:39 12/02/23 14:00 12/02/23 14:30 Temperature 98.4 F Temperature Source Oral Pulse Rate 74 73 Pulse Rate [Left Radial] 76 Respiratory Rate 20 17 16 Blood Pressure 143/73 H 149/69 H Blood Pressure [Right Arm] 137/67 Blood Pressure Mean 85 86 Blood Pressure Mean [Right Arm] 90 02 Sat by Pulse Oximetry 97 99 98 Oxygen Delivery Method Room Air 12/02/23 15:32 Temperature Temperature Source Pulse Rate 75 Pulse Rate [Left Radial] Respiratory Rate 15 Blood Pressure 167/85 H Blood Pressure [Right Arm] Blood Pressure Mean Blood Pressure Mean [Right Arm] 02 Sat by Pulse Oximetry 98 Oxygen Delivery Method Room Air Lab Data Lab results reviewed: Yes I reviewed the patient's lab results. Labs: Lab Results 12/02/23 13:45: WBC 6.6, RBC 3.12 L, Hgb 10.7 L, Hct 31.1 L, MCV 99.6 H, MCH 34.2 H, MCHC 34.4, RDW 15.7, Plt Count 221, MPV 7.9, Neut % (Auto) 75.6, Lymph % (Auto) 17.4, [place] % (Auto) 5.9, Eos % (Auto) 0.6, Baso % (Auto) 0.6, Neut # (Auto) 5.0, Lymph # (Auto) 1.2, [place] # (Auto) 0.4, Eos # (Auto) 0.0, Baso # (Auto) 0.0, Sodium 133 L, Potassium 4.3, Chloride 96 L, Carbon Dioxide 26, Anion Gap 15.3 H, BUN 14, Creatinine 0.80, Estimated Creat Clear 41, Estimated GFR 70, Est GFR ( Amer) 85, Glucose 149 H, Calcium 9.8, Total Bilirubin 0.5, AST 25, ALT 22, Alkaline Phosphatase 65, Troponin I < 0.01, Total Protein 6.7, Albumin 4.5, Globulin 2.2, Albumin/Globulin Ratio 2.0 H 12/02/23 16:37: Troponin I < 0.01 Response Orders (Tests/Meds): ORDERS Category Date Time Status XR chest portable Stat Exams 12/02/23 13:53 Taken Complete Blood Count Auto Diff Stat Lab 12/02/23 13:45 Completed Comprehensive Metabolic Panel Stat Lab 12/02/23 13:45 Completed Troponin I Q3H Lab 12/02/23 16:37 Completed Troponin I Q3H Lab 12/02/23 20:00 Ordered Troponin I Stat Lab 12/02/23 13:45 Completed MDM Narrative Medical Decision Narrative: 72-year-old female well-known to this emergency department presenting with chest pain. Patient states that it started right before she got here about an hour. Substernal, does not radiate, associated nausea without vomiting. No shortness of breath, diaphoresis, or any other complaints. History was obtained via conversation with patient. On arrival, patient hemodynamically stable, alert, oriented x4, appropriate, GCS 15, moving all extremities spontaneously, pupils equal and reactive to light. Full physical exam performed and significant for anxious appearing woman in no acute distress. Speaking in full sentences, hemodynamically stable, afebrile, normotensive, saturating appropriately on room air. Differential includes microvascular coronary artery disease, CHF, ACS, MS, coronary artery dissection, pneumothorax, PE, dissection, pericarditis, myocarditis, pneumothorax, aortic aneurysm, pneumonia, bronchitis, among others. Patient was given aspirin p.o. for symptomatic management and correction of underlying abnormalities. Workup independently interpreted and significant for nonactionable CBC or chemistry, initial troponin negative. Chest x-ray without acute cardiopulmonary airspace disease, final read pending at time of handoff. See radiology read for full review of final results. Independent interpretation of EKG shows V paced rhythm Sgarbossa negative. Patient placed on continuous cardiac monitoring and continuous pulse ox with initial blood pressure 137/67, heart rate 76, saturation 97 on room air. Heart score 5. Patient was placed in observation beginning at 3 PM in order to rule out evolving MS with delta troponins and determine need for admission versus home-going. The patient was provided serial exams and cardiac monitoring while awaiting results. Prior to final results and disposition, care handed off to oncoming physician. Agricultural Extension Specialist disclaimer Much of this encounter note is an electronic dowel setting machine operator spoken language to printed text. Electronic dowel setting machine operator of the spoken language may permit errors. Although I have reviewed the note, some errors may still exist. Reassessment this is Dr. Cadena took over from Dr. Conrad and this patient is very well-known to our emergency department she is very comfortable in appearance I reviewed her workup including her EKG serial troponins which were negative chest x-ray which I personally interpreted shows no acute cardiopulmonary emergency please refer to many of her old notes she has been extensively evaluated and is followed by her primary care doctor for what is ongoing no emergent medical condition identified today and she was discharged in stable condition.
[2023-12-02 15:32] VITALS: BP 167/85; PULSE 75; RESP 15; O2SAT 98
--- NOTE | 2023-12-02 16:03 | PC.NURSE ---
Pt resting in bed. No needs voiced at this time. Call light within reach.
[2023-12-02 17:12] LABS: Troponin I < 0.01 ng/ml (0.00-0.034)
[2023-12-02 17:32] VITALS: BP 110/70; PULSE 70; RESP 20; TEMP 36.7; O2SAT 98
== END 2023-12-02 17:33 | disposition home or self-care (01) ==
PROVIDERS: Emergency Provider Emergency Medicine; PCP Internal Medicine
DX: R07.9 Chest pain, unspecified (principal); R11.0 Nausea
CPT/HCPCS: 71045; 80053; 84484; 85025; 93005; 99284

== ENCOUNTER 2023-12-04 13:52 | Emergency (ER) | payer MEDICARE, OTHER, SELFPAY ==
[2023-12-04 13:52] VITALS: BP 170/71; PULSE 72; RESP 18; TEMP 36.6; O2SAT 96; BMI 22.0
--- NOTE | 2023-12-04 14:03 | ED_ITS ---
<Statement entered by Glenys Hassan DO - 12/05/23 00:24> DO Mo: On my assessment of the patient, she is resting comfortably and is at her baseline. Her CT scan is concerning for constipation urine demonstrates possible UTI. I reviewed prior cultures and noted that the patient has history of uncomplicated E. coli UTI in the past. Given this, she was given Macrobid. She is given instructions for bowel cleanout at home with MiraLAX and I prescribed this for her. I gave her instructions for close follow-up and strict return precautions. She was discharged in stable condition with benign abdominal exam and reassuring vitals. Discharge Plan Disposition Patient Disposition: Home, Self-Care Condition: Good Prescriptions Prescriptions: New polyethylene glycol 3350 [Miralax] 17 gram/dose powder 17 g PO DAILY Qty: 510 0RF nitrofurantoin monohyd/m-cryst [Macrobid] 100 mg capsule 100 mg PO BID 5 Days Qty: 10 0RF Rx Instructions: must administer with a meal/food No Action venlafaxine 37.5 mg tablet 37.5 mg PO BID metformin 500 mg tablet 500 mg PO BID quetiapine [Seroquel] 50 mg tablet 50 mg PO HS metoprolol succinate 50 mg tablet extended release 24 hr See Rx Instructions .ROUTE .COMPLEX Qty: 90 3RF Dose Instruction: TAKE ONE TABLET BY MOUTH ONCE A DAY FOR HIGH BLOOD PRESSURE Rx Instructions: TAKE ONE TABLET BY MOUTH ONCE A DAY FOR HIGH BLOOD PRESSURE loperamide 2 mg capsule 2 mg PO Q6H PRN (Reason: loose stool) Qty: 20 0RF amlodipine 5 mg tablet 5 mg PO DAILY Qty: 30 2RF acetaminophen [Pain Relief ES (acetaminophen)] 500 mg tablet 500 - 1,000 mg PO Q6HP PRN (Reason: Pain) clopidogrel [Plavix] 75 mg tablet 75 mg PO DAILY meclizine 12.5 mg tablet 12.5 mg PO DAILYP PRN (Reason: Dizziness Or Vertigo) sennosides-docusate sodium [Stool Softener-Stimulant Laxat] 8.6-50 mg Tablet 1 tab PO DAILY PRN (Reason: Constipation) Qty: 0 0RF diazepam 2 mg tablet 2 mg PO TID PRN (Reason: Anxiety) 30 Days Qty: 90 0RF alendronate 70 mg tablet 70 mg PO WEEKLY Rx Instructions: Take on omeprazole 20 mg capsule,delayed release(DR/EC) 20 mg PO DAILY calcium carbonate-vitamin D3 500 mg-2.5 mcg (100 unit) tablet,chewable 1 tab PO BID cholecalciferol (vitamin D3) 50 mcg (2,000 unit) tablet 2,000 unit PO DAILY atorvastatin 40 mg tablet 40 mg PO DAILY lisinopril 20 mg tablet 20 mg PO DAILY Hold Instructions: pending follow-up with PCP and recheck of potassium levels isosorbide mononitrate 30 mg tablet extended release 24 hr 30 mg PO DAILY famotidine 20 mg tablet 20 mg PO DAILY aspirin 81 mg tablet,chewable 81 mg PO DAILY gabapentin 100 mg capsule 200 mg PO HS amoxicillin-pot clavulanate 875-125 mg tablet 1 tab PO BID Qty: 20 0RF ondansetron 4 mg tablet,disintegrating 4 mg PO Q8H PRN (Reason: nausea and vomiting) 4 Days Qty: 12 0RF Activity Restrictions/Add. Instructions Additional Instructions/Restrictions: You were evaluated in the emergency department today. Your CT scan shows constipation. Your urine shows infection. Please fruit picker your prescription for MiraLAX and take as prescribed. I prescribed you an antibiotic as well. Follow-up closely with your primary care provider. Return to the emergency department for new or worsening symptoms. Clinical Impressions Clinical Impression: Constipation, Chronic upper abdominal pain, UTI (urinary tract infection) Instructions Patient Instructions: DI for Urinary Tract Infection (UTI), DI for Constipation, DI for Acute Abdominal Pain Discharge ED Provider: Glenys Hassan General Adult HPI General Chief complaint: Abdominal Pain Stated complaint: abdominal pain Time Seen by Provider: 12/04/23 14:03 Mode of Arrival: EMS Source of Information: Patient Limitations: No Limitations Description of Symptoms (Recalled from ER Triage Doc. by RN): abdominal pain. History of Present Illness HPI narrative: The patient presents with a chief complaint of pain in her liver and stomach, which started earlier today. The pain began simultaneously in both areas and has been persisting, with fluctuations in intensity. She also reports experiencing occasional nausea and a gagging sensation. Additionally, she mentions occasional burning during urination, though this symptom is not recent. Regarding her bowel movements, she notes that they are small and brown, with no blood present. The patient denies any past similar episodes of pain. She does not provide specific details on any factors that exacerbate or alleviate the pain. Please note that above description of symptoms, in this electronic medical record under categorization of recalled from ER triage doctor by RN are reflective of an initial nursing assessment, however, is not reflective of my full history and physical exam that was personally taken and clarified. Consequentially, this preceding description of symptoms, which may include the patient's categorized chief complaint in the EMR, do not reflect my personal clinical impression, and the ultimate description of history of present illness and patient stated complaints should be deferred to this section of the note. Unless stated otherwise or congruent with this section of the note, additional signs, symptoms, or incongruence should be interpreted as inaccurate with my clinical impression. Related Data Home Medications Medication Instructions Recorded Confirmed venlafaxine 37.5 mg tablet 37.5 mg PO BID mood 07/26/17 10/05/23 metformin 500 mg tablet 500 mg PO BID 05/13/18 10/05/23 quetiapine 50 mg tablet (Seroquel) 50 mg PO HS 12/13/18 10/05/23 acetaminophen 500 mg tablet (Pain 500 - 1,000 mg PO Q6HP PRN Pain 09/24/22 10/05/23 Relief Extra Strength (acetaminophen)) clopidogrel 75 mg tablet (Plavix) 75 mg PO DAILY 02/27/23 10/05/23 meclizine 12.5 mg tablet 12.5 mg PO DAILYP PRN Dizziness Or 02/28/23 10/05/23 Vertigo alendronate 70 mg tablet 70 mg PO WEEKLY 07/21/23 10/05/23 aspirin 81 mg chewable tablet 81 mg PO DAILY 07/21/23 10/05/23 atorvastatin 40 mg tablet 40 mg PO DAILY 07/21/23 10/05/23 calcium carbonate 500 mg-vitamin 1 tab PO BID 07/21/23 10/05/23 D3 2.5 mcg (100 unit) chewable tablet cholecalciferol (vitamin D3) 50 2,000 unit PO DAILY 07/21/23 10/05/23 mcg (2,000 unit) tablet famotidine 20 mg tablet 20 mg PO DAILY 07/21/23 10/05/23 gabapentin 100 mg capsule 200 mg PO HS 07/21/23 10/05/23 isosorbide mononitrate 30 mg 30 mg PO DAILY 07/21/23 10/05/23 tablet,extended release 24 hr lisinopril 20 mg tablet 20 mg PO DAILY 07/21/23 10/05/23 omeprazole 20 mg capsule,delayed 20 mg PO DAILY 07/21/23 10/05/23 release Previous Rx's Medication Instructions Recorded diazepam 2 mg tablet 2 mg PO TID PRN Anxiety 30 days 03/03/23 #90 tabs sennosides 8.6 mg-docusate sodium 1 tab PO DAILY PRN Constipation #0 03/03/23 50 mg tablet (Stool tabs Softener-Stimulant Laxative) metoprolol succinate 50 mg See Rx Instructions .Route 10/11/23 tablet,extended release 24 hr .COMPLEX #90 tabs amoxicillin 875 mg-potassium 1 tab PO BID diverticulitis #20 11/28/23 clavulanate 125 mg tablet tabs ondansetron 4 mg disintegrating 4 mg PO Q8H PRN nausea and 11/28/23 tablet vomiting 4 days #12 tabs amlodipine 5 mg tablet 5 mg PO DAILY #30 tabs 12/03/23 loperamide 2 mg capsule 2 mg PO Q6H PRN loose stool #20 12/03/23 caps nitrofurantoin 100 mg PO BID 5 days #10 caps 12/04/23 monohydrate/macrocrystals 100 mg capsule (Macrobid) polyethylene glycol 3350 17 17 g PO DAILY #510 grams 12/04/23 gram/dose oral powder (Miralax) Allergies Allergy/AdvReac Type Severity Reaction Status Date / Time codeine [CODEINE] Allergy Unknown WEAK Verified 10/06/23 07:45 hydrochlorothiazide Allergy Unknown I-RASH Verified 10/06/23 07:45 [HYDROCHLOROTHIAZIDE] hydrocodone [HYDROCODONE] Allergy Unknown I-RASH Verified 10/06/23 07:45 metoclopramide Allergy Unknown SLURRED Verified 10/06/23 07:45 [METOCLOPRAMIDE] SPEECH, WEAK nifedipine [NIFEDIPINE] Allergy Unknown I-HIVES Verified 10/06/23 07:45 prazosin [PRAZOSIN] Allergy Unknown ITCHING/WEA Verified 10/06/23 07:45 K triamterene [TRIAMTERENE] Allergy Unknown I-RASH Verified 10/06/23 07:45 [facility] Disclaimer: The information contained in this section may have been updated after the patient was seen, as this information can be updated by other users. Medical History (Updated 12/04/23 @ 17:38 by Glenys Hassan DO) Type 2 diabetes mellitus Anxiety Gastro-esophageal reflux disease without esophagitis Grief reaction Stricture and stenosis of esophagus Esophageal thickening Esophageal thickening Femur fracture, left History of left heart catheterization Coronary artery disease Carotid artery stenosis Surgical History History of permanent cardiac pacemaker placement S/P CABG x 1 Status post aortic valve replacement with bioprosthetic valve Family History Other Family history of cancer Family history of diabetes mellitus type II Family history of hypertension Family history of myocardial infarction Social History Smoking Status: Never smoker second hand exposure: Yes alcohol intake: never substance use type: denies use current occupational status: retired Travel in the last 8 weeks: None household members: none housing: apartment lives independently: Yes marital status: single education level: middle school service: No half-way: No current occupational exposures/hazards: No caffeine: Yes do you feel safe at home: Yes victim of physical abuse: No victim of emotional abuse: No victim of sexual abuse: No would you like helpful sources: No ROS Obtained: Yes other As per HPI Physical Exam General General appearance: alert and in no apparent distress Head Head exam: atraumatic and normocephalic Eye Eye exam: Present normal appearance Neck Neck exam: Present normal inspection Chest Chest inspection: Present normal inspection and symmetric chest wall rise Respiratory Respiratory exam: Present normal lung sounds bilaterally; Absent respiratory distress Cardiovascular Cardiovascular exam: Present regular rate and normal rhythm Abdominal Exam Abdominal exam: Present soft Abdominal tenderness: Present epigastrium and mild Neurological Exam Neurological exam: Present alert and oriented X3 Psychiatric Psychiatric exam: Present normal affect and normal mood Skin Skin exam: Present warm and dry Medical Decision Making Medical Records Medical records reviewed: Yes I reviewed the patient's medical records. Chet Inquiry Pt receiving controlled substance: No Vital Signs: 12/04/23 13:52 12/04/23 16:02 12/04/23 17:48 Temperature 98 F 97.6 F Temperature Source Oral Pulse Rate 69 79 Pulse Rate [Right] 72 Respiratory Rate 18 18 Blood Pressure 159/75 H 140/69 Blood Pressure [Right Arm] 170/71 H Blood Pressure Mean [Right Arm] 104 Blood Pressure Source Automatic Cuff Blood Pressure Position Sitting 02 Sat by Pulse Oximetry 96 100 Oxygen Delivery Method Room Air Room Air Lab Data Lab Results 12/04/23 14:52: WBC 6.3, RBC 3.40 L, Hgb 11.3 L, Hct 34.5 L, MCV 101.4 H, MCH 33.3 H, MCHC 32.9, RDW 15.6, Plt Count 237, MPV 7.9, Neut % (Auto) 78.8, Lymph % (Auto) 13.9, [place] % (Auto) 5.8, Eos % (Auto) 0.8, Baso % (Auto) 0.7, Neut # (Auto) 5.0, Lymph # (Auto) 0.9, [place] # (Auto) 0.4, Eos # (Auto) 0.1, Baso # (Auto) 0.1, Sodium 137, Potassium 4.4, Chloride 100, Carbon Dioxide 26, Anion Gap 15.4 H, BUN 15, Creatinine 0.70, Estimated Creat Clear 40, Estimated GFR 82, Est GFR ( Amer) 99, Glucose 117 H, Calcium 10.2, Total Bilirubin 0.5, AST 28, ALT 23, Alkaline Phosphatase 65, Total Protein 7.2, Albumin 4.8, Globulin 2.4, Albumin/Globulin Ratio 2.0 H, Lipase 61 12/04/23 16:58: Urine Color Yellow, Urine Appearance Clear, Urine pH 6.5, Ur Specific [place] <= 1.005, Urine Protein Negative, Urine Glucose (UA) Negative, Urine Ketones Negative, Urine Blood Negative, Urine Nitrate Negative, Urine Bilirubin Negative, Urine Urobilinogen 0.2, Ur Leukocyte Esterase 1+ A, Urine RBC None, Urine WBC Occasional, Ur Squamous Epith Cells None, Urine Bacteria None 12/04/23 14:52 12/04/23 14:52 Orders (Tests/Meds): ED MEDICATIONS Discontinued Medications Generic Name Dose Route Start Last Admin Trade Name Freq PRN Reason Stop Dose Admin Belladonna Alkaloids 60 ml 12/04/23 14:29 12/04/23 15:24 Belladonna Alkaloids 60 Ml Ml PO 12/04/23 14:30 60 ml ONCE ONE Administration Lactated Ringer's 1,000 mls @ 999 mls/hr 12/04/23 14:29 12/04/23 15:24 Lactated Ringer's 1000 Ml Bag IV 12/04/23 15:29 999 mls/hr .Q1H1M ONE Administration Iopamidol 75 ml 12/04/23 16:24 12/04/23 16:25 Iopamidol-370 (76%);100ml Bottle IV 12/04/23 16:25 75 ml ONCE ONE Administration Nitrofurantoin Macrocrystals 100 mg 12/04/23 17:36 12/04/23 17:42 Nitrofurantoin 100mg Capsule PO 12/04/23 17:37 100 mg ONCE ONE Administration Ondansetron HCl 4 mg 12/04/23 14:29 12/04/23 15:24 Ondansetron 4mg/2ml Vial IV 12/04/23 14:30 4 mg ONCE ONE Administration Sodium Chloride 10 ml 12/04/23 16:24 12/04/23 16:24 Sodium Chloride 0.9% 10ml Syr (Rad Only) IV 12/04/23 16:25 10 ml ONCE ONE Administration ORDERS Category Date Time Status CT abdomen pelvis w con Stat Cat Scan 12/04/23 15:46 Completed CBC w/Auto Diff [Complete Blood Count Auto Diff] Stat Lab 12/04/23 14:52 Completed CMP [Comprehensive Metabolic Panel] Stat Lab 12/04/23 14:52 Completed Lipase Stat Lab 12/04/23 14:52 Completed Urinalysis and Microscopic Stat Lab 12/04/23 16:58 Completed Urine Culture Stat Micro 12/04/23 16:58 Received Medical Decision Narrative: Patient with history and exam per above presenting for evaluation of epigastric abdominal pain Diagnoses considered include pancreatitis, PUD, referred pain, cystitis, pyelonephritis, enteritis, bowel obstruction, GI bleed, among others ED workup and treatment included: ED MEDICATIONS Discontinued Medications Generic Name Dose Route Start Last Admin Trade Name Freq PRN Reason Stop Dose Admin Belladonna Alkaloids 60 ml 12/04/23 14:29 12/04/23 15:24 Belladonna Alkaloids 60 Ml Ml PO 12/04/23 14:30 60 ml ONCE ONE Administration Lactated Ringer's 1,000 mls @ 999 mls/hr 12/04/23 14:29 12/04/23 15:24 Lactated Ringer's 1000 Ml Bag IV 12/04/23 15:29 999 mls/hr .Q1H1M ONE Administration Iopamidol 75 ml 12/04/23 16:24 12/04/23 16:25 Iopamidol-370 (76%);100ml Bottle IV 12/04/23 16:25 75 ml ONCE ONE Administration Ondansetron HCl 4 mg 12/04/23 14:29 12/04/23 15:24 Ondansetron 4mg/2ml Vial IV 12/04/23 14:30 4 mg ONCE ONE Administration Sodium Chloride 10 ml 12/04/23 16:24 12/04/23 16:24 Sodium Chloride 0.9% 10ml Syr (Rad Only) IV 12/04/23 16:25 10 ml ONCE ONE Administration ORDERS Category Date Time Status CT abdomen pelvis w con Stat Cat Scan 12/04/23 15:46 Taken CBC w/Auto Diff [Complete Blood Count Auto Diff] Stat Lab 12/04/23 14:52 Completed CMP [Comprehensive Metabolic Panel] Stat Lab 12/04/23 14:52 Completed Lipase Stat Lab 12/04/23 14:52 Completed Urinalysis and Microscopic Stat Lab 12/04/23 14:30 Ordered Urine Culture Stat Micro 12/04/23 14:30 Ordered Labs were independently interpreted by me, significant for hemoglobin 11.3, creatinine within normal limits, no leukocytosis, other labs pending at this time Imaging pending at this time. Care was transferred to incoming physician. Critical Care Critical Care Time Critical Care Time: No
[2023-12-04 15:00] LABS: Basophils # 0.1 K/mm3 (0-0.2); Basophils % 0.7 % (0.1-2.0); Eosinophils # 0.1 K/mm3 (0.0-0.4); Eosinophils % 0.8 % (0.1-12.0); Hematocrit 34.5 % (37.0-47.0); Hemoglobin 11.3 g/dL (12.2-16.2); Lymphocytes # 0.9 K/mm3 (0.7-4.5); Lymphocytes % 13.9 % (10-50); Mean Corpuscular HGB Conc 32.9 g/dL (31.8-35.4); Mean Corpuscular Hemoglobin 33.3 pg (27.0-31.2); Mean Corpuscular Volume 101.4 fl (81-99); Mean Platelet Volume 7.9 fl (7.4-10.4); Monocytes # 0.4 K/mm3 (0.1-1.0); Monocytes % 5.8 % (1.7-9.3); Neutrophils % 78.8 % (37.0-80.0); Platelet Count 237 K/mm3 (142-424); Red Cell Distribution Width 15.6 % (11.5-17.5); White Blood Count 6.3 K/mm3 (4.8-10.8)
[2023-12-04 15:17] LABS: Chloride 100 mmol/L (98-107); Potassium 4.4 mmoL/L (3.5-5.1); Sodium 137 mmol/L (136-145)
[2023-12-04 15:19] LABS: Alanine Aminotransferase 23 U/L (12-78); Aspartate Amino Transferase 28 U/L (14-36); Blood Urea Nitrogen 15 mg/dl (7-17); Creatinine Clearance Estimated 40 mL/min (50-200); Estimated Glomerular Filt Rate 82 ml/min (>60); GFR (African American) 99 ML/MIN (>60)
[2023-12-04 15:20] LABS: Albumin Level 4.8 g/dl (3.5-5.0); Alkaline Phosphatase 65 U/L (38-126); Anion Gap 15.4 mEq/L (5-15); Bilirubin,Total 0.5 mg/dl (0.2-1.3); Calcium 10.2 mg/dl (8.4-10.2); Carbon Dioxide 26 mmol/L (22.0-30.0); Globulin 2.4 g/dL (1.3-3.2); Glucose 117 mg/dl (74-100); Lipase 61 U/L (23-300); Total Protein,Serum 7.2 g/dl (6.3-8.2)
[2023-12-04] MEDS: ONDANSETRON 4MG/2ML VIAL 4 MG IV (15:24)
[2023-12-04] MEDS: BELLADONNA ALKALOIDS 60 ML ML PO (15:24)
[2023-12-04] MEDS: LACTATED RINGERS 1000ML 1,000 ML 999 ML IV (15:24)
--- NOTE | 2023-12-04 15:46 | CT_ITS ---
PROCEDURE INFORMATION: Exam: CT Abdomen And Pelvis With Contrast Exam date and time: 12/04/2023 4:23 PM Age: 72 years old Clinical indication: Abdominal pain; Epigastric; Additional info: Epigastric abdominal pain TECHNIQUE: Imaging protocol: Computed tomography of the abdomen and pelvis with contrast. Radiation optimization: All CT scans at this facility use at least one of these dose optimization techniques: automated exposure control; mA and/or kV adjustment per patient size (includes targeted exams where dose is matched to clinical indication); or iterative reconstruction. Contrast material: ISOVUE; Contrast volume: 75 ml; Contrast route: IV; COMPARISON: CT ANGIO ABDOMEN PELVIS 11/28/2023 5:19 PM FINDINGS: Tubes, catheters and devices: None noted. Lungs: Lung bases appear clear. Heart: No significant coronary calcifications. No cardiomegaly. No significant pericardial effusion. Liver: Normal. No mass. Gallbladder and bile ducts: Normal. No calcified stones. No ductal dilation. Pancreas: Normal. No ductal dilation. Spleen: Normal. No splenomegaly. Adrenal glands: Normal. No mass. Kidneys and ureters: Normal. No hydronephrosis. Stomach and bowel: Hiatal hernia. Large amount of stool throughout the colon. No obstruction. No mucosal thickening. Appendix: Appendectomy. Intraperitoneal space: Unremarkable. No free air. No significant fluid collection. Retroperitoneal space: No significant retroperitoneal inflammatory changes are noted. Vasculature: Unremarkable. No abdominal aortic aneurysm. Lymph nodes: Unremarkable. No enlarged lymph nodes. Urinary bladder: Unremarkable as visualized. Reproductive: Hysterectomy. Bones/joints: Internal fixation left hip and femur. Vacuum discs at all inter lumbar levels. No acute fracture. Soft tissues: Unremarkable. IMPRESSION: 1. Large amount of stool throughout the colon. 2. Hysterectomy. 3. Appendectomy. 4. Previous internal fixation left hip.
[2023-12-04 16:02] VITALS: BP 159/75; PULSE 69; O2SAT 100
[2023-12-04] MEDS: SODIUM CHLORIDE 0.9% 10ML SYR (RAD ONLY) 10 ML IV (16:24)
[2023-12-04] MEDS: IOPAMIDOL-370 (76%);100ML BOTTLE 75 ML IV (16:25)
[2023-12-04 17:02] LABS: Microscopic, Urine URINE MICROSCOPIC (MICROSCOPIC)
[2023-12-04 17:21] LABS: Appearance,Urine CLEAR (Clear); Bilirubin,Urine Negative (Negative); Blood, Urine Negative (Negative); Color,Urine YELLOW (Yellow); Glucose,Urine (UA) Negative (Negative); Ketones,Urine Negative (Negative); Leukocyte Esterase,Urine 1+ (Negative); Nitrate,Urine Negative (Negative); PH,Urine 6.5 (5.0-8.5); Protein,Urine Negative (Negative); Specific Gravity, Urine <= 1.005 (1.005-1.030); Urobilinogen,Urine 0.2 EU/dl (0.2)
[2023-12-04] MEDS: NITROFURANTOIN 100MG CAPSULE 100 MG PO (17:42)
[2023-12-04 17:46] LABS: WBC,Urine Occasional #/hpf (0-3)
[2023-12-04 17:48] VITALS: BP 140/69; PULSE 79; RESP 18; TEMP 36.4; O2SAT 99
--- NOTE | 2023-12-08 10:28 | PC.NURSE ---
urine culture discussed with , pt dc with caroline, ntd
--- NOTE | 2023-12-09 10:42 | PC.NURSE ---
final urine results discussed with , pt has less than 100,000 not clinically significant, ok to stay on macrobid
== END 2023-12-04 17:49 | disposition home or self-care (01) ==
PROVIDERS: Emergency Medicine; Emergency Provider Emergency Medicine; PCP Internal Medicine
DX: N39.0 Urinary tract infection, site not specified (principal); B96.5 Pseudomonas (aeruginosa) (mallei) (pseudomallei) as the cause of diseases classified elsewhere; R10.10 Upper abdominal pain, unspecified; K59.00 Constipation, unspecified; E11.9 Type 2 diabetes mellitus without complications; K21.9 Gastro-esophageal reflux disease without esophagitis; Z79.84 Long term (current) use of oral hypoglycemic drugs
CPT/HCPCS: 74177; 80053; 81001; 83690; 85025; 87086; 87088; 87186; 96361; 96374; 99284; J2405; J7120; Q9967

== ENCOUNTER 2023-12-07 12:23 | Emergency (ER) | payer MEDICARE, OTHER, SELFPAY ==
[2023-12-07 12:23] VITALS: BP 145/65; PULSE 73; RESP 18; TEMP 36.6; O2SAT 100; BMI 22.6
[2023-12-07 13:09] LABS: Microscopic, Urine URINE MICROSCOPIC (MICROSCOPIC)
[2023-12-07 13:12] LABS: Appearance,Urine CLEAR (Clear); Bilirubin,Urine Negative (Negative); Blood, Urine TRACE-I (Negative); Glucose,Urine (UA) Negative (Negative); Ketones,Urine Negative (Negative); Leukocyte Esterase,Urine TRACE (Negative); Nitrate,Urine Negative (Negative); Protein,Urine Negative (Negative); Specific Gravity, Urine <= 1.005 (1.005-1.030); Urobilinogen,Urine 0.2 EU/dl (0.2)
--- NOTE | 2023-12-07 13:19 | HMH.EDGENADL ---
Discharge Plan Disposition Patient Disposition: Home, Self-Care Condition: Good Prescriptions Prescriptions: No Action venlafaxine 37.5 mg tablet 37.5 mg PO BID metformin 500 mg tablet 500 mg PO BID quetiapine [Seroquel] 50 mg tablet 50 mg PO HS metoprolol succinate 50 mg tablet extended release 24 hr See Rx Instructions .ROUTE .COMPLEX Qty: 90 3RF Dose Instruction: TAKE ONE TABLET BY MOUTH ONCE A DAY FOR HIGH BLOOD PRESSURE Rx Instructions: TAKE ONE TABLET BY MOUTH ONCE A DAY FOR HIGH BLOOD PRESSURE loperamide 2 mg capsule 2 mg PO Q6H PRN (Reason: loose stool) Qty: 20 0RF amlodipine 5 mg tablet 5 mg PO DAILY Qty: 30 2RF acetaminophen [Pain Relief ES (acetaminophen)] 500 mg tablet 500 - 1,000 mg PO Q6HP PRN (Reason: Pain) clopidogrel [Plavix] 75 mg tablet 75 mg PO DAILY meclizine 12.5 mg tablet 12.5 mg PO DAILYP PRN (Reason: Dizziness Or Vertigo) sennosides-docusate sodium [Stool Softener-Stimulant Laxat] 8.6-50 mg Tablet 1 tab PO DAILY PRN (Reason: Constipation) Qty: 0 0RF diazepam 2 mg tablet 2 mg PO TID PRN (Reason: Anxiety) 30 Days Qty: 90 0RF alendronate 70 mg tablet 70 mg PO WEEKLY Rx Instructions: Take on omeprazole 20 mg capsule,delayed release(DR/EC) 20 mg PO DAILY calcium carbonate-vitamin D3 500 mg-2.5 mcg (100 unit) tablet,chewable 1 tab PO BID cholecalciferol (vitamin D3) 50 mcg (2,000 unit) tablet 2,000 unit PO DAILY atorvastatin 40 mg tablet 40 mg PO DAILY lisinopril 20 mg tablet 20 mg PO DAILY Hold Instructions: pending follow-up with PCP and recheck of potassium levels isosorbide mononitrate 30 mg tablet extended release 24 hr 30 mg PO DAILY famotidine 20 mg tablet 20 mg PO DAILY aspirin 81 mg tablet,chewable 81 mg PO DAILY gabapentin 100 mg capsule 200 mg PO HS amoxicillin-pot clavulanate 875-125 mg tablet 1 tab PO BID Qty: 20 0RF ondansetron 4 mg tablet,disintegrating 4 mg PO Q8H PRN (Reason: nausea and vomiting) 4 Days Qty: 12 0RF polyethylene glycol 3350 [Miralax] 17 gram/dose powder 17 g PO DAILY Qty: 510 0RF nitrofurantoin monohyd/m-cryst [Macrobid] 100 mg capsule 100 mg PO BID 5 Days Qty: 10 0RF Rx Instructions: must administer with a meal/food Referrals Follow up/Referrals: Geremias Adam MD [Physician] - See instructions Juan Jansen MD [Staff Physician] - See instructions Ethel Adam APRN [Staff Physician] - See instructions Activity Restrictions/Add. Instructions Additional Instructions/Restrictions: You were evaluated in the emergency department today. Please follow-up closely outpatient with gastroenterology as well as general surgery. Clinical Impressions Clinical Impression: Chronic abdominal pain Instructions Patient Instructions: DI for Acute Abdominal Pain Discharge ED Provider: Glenys Hassan General Adult HPI General Chief complaint: Abdominal Pain Stated complaint: ABD pain Time Seen by Provider: 12/07/23 12:27 Mode of Arrival: EMS Source of Information: Patient Limitations: No Limitations Description of Symptoms (Recalled from ER Triage Doc. by RN): Patient reports recurrent abdomen pain. History of Present Illness HPI narrative: This patient is a 72-year-old female well-known to the emergency department who has a history of chronic abdominal pain presenting with concern for abdominal pain. She arrives by EMS who noted that she was stable en route. Patient states that she supposed to see Dr. Adam and Dr. Jansen, so she came in today requesting evaluation by them. She has had no changes in her abdominal pain symptoms that are chronic. She has had multiple ED visits over the last several days for similar symptoms with reassuring workups. She was diagnosed with a UTI 1 point and prescribed antibiotics. She states that she has had no fevers, vomiting, changes bowel movements, or other concerns. She is at her baseline. Related Data Home Medications Medication Instructions Recorded Confirmed venlafaxine 37.5 mg tablet 37.5 mg PO BID mood 07/26/17 10/05/23 metformin 500 mg tablet 500 mg PO BID 05/13/18 10/05/23 quetiapine 50 mg tablet (Seroquel) 50 mg PO HS 12/13/18 10/05/23 acetaminophen 500 mg tablet (Pain 500 - 1,000 mg PO Q6HP PRN Pain 09/24/22 10/05/23 Relief Extra Strength (acetaminophen)) clopidogrel 75 mg tablet (Plavix) 75 mg PO DAILY 02/27/23 10/05/23 meclizine 12.5 mg tablet 12.5 mg PO DAILYP PRN Dizziness Or 02/28/23 10/05/23 Vertigo alendronate 70 mg tablet 70 mg PO WEEKLY 07/21/23 10/05/23 aspirin 81 mg chewable tablet 81 mg PO DAILY 07/21/23 10/05/23 atorvastatin 40 mg tablet 40 mg PO DAILY 07/21/23 10/05/23 calcium carbonate 500 mg-vitamin 1 tab PO BID 07/21/23 10/05/23 D3 2.5 mcg (100 unit) chewable tablet cholecalciferol (vitamin D3) 50 2,000 unit PO DAILY 07/21/23 10/05/23 mcg (2,000 unit) tablet famotidine 20 mg tablet 20 mg PO DAILY 07/21/23 10/05/23 gabapentin 100 mg capsule 200 mg PO HS 07/21/23 10/05/23 isosorbide mononitrate 30 mg 30 mg PO DAILY 07/21/23 10/05/23 tablet,extended release 24 hr lisinopril 20 mg tablet 20 mg PO DAILY 07/21/23 10/05/23 omeprazole 20 mg capsule,delayed 20 mg PO DAILY 07/21/23 10/05/23 release Previous Rx's Medication Instructions Recorded diazepam 2 mg tablet 2 mg PO TID PRN Anxiety 30 days 03/03/23 #90 tabs sennosides 8.6 mg-docusate sodium 1 tab PO DAILY PRN Constipation #0 03/03/23 50 mg tablet (Stool tabs Softener-Stimulant Laxative) metoprolol succinate 50 mg See Rx Instructions .Route 10/11/23 tablet,extended release 24 hr .COMPLEX #90 tabs amoxicillin 875 mg-potassium 1 tab PO BID diverticulitis #20 11/28/23 clavulanate 125 mg tablet tabs ondansetron 4 mg disintegrating 4 mg PO Q8H PRN nausea and 11/28/23 tablet vomiting 4 days #12 tabs amlodipine 5 mg tablet 5 mg PO DAILY #30 tabs 12/03/23 loperamide 2 mg capsule 2 mg PO Q6H PRN loose stool #20 12/03/23 caps nitrofurantoin 100 mg PO BID 5 days #10 caps 12/04/23 monohydrate/macrocrystals 100 mg capsule (Macrobid) polyethylene glycol 3350 17 17 g PO DAILY #510 grams 12/04/23 gram/dose oral powder (Miralax) Allergies Allergy/AdvReac Type Severity Reaction Status Date / Time codeine [CODEINE] Allergy Unknown WEAK Verified 10/06/23 07:45 hydrochlorothiazide Allergy Unknown I-RASH Verified 10/06/23 07:45 [HYDROCHLOROTHIAZIDE] hydrocodone [HYDROCODONE] Allergy Unknown I-RASH Verified 10/06/23 07:45 metoclopramide Allergy Unknown SLURRED Verified 10/06/23 07:45 [METOCLOPRAMIDE] SPEECH, WEAK nifedipine [NIFEDIPINE] Allergy Unknown I-HIVES Verified 10/06/23 07:45 prazosin [PRAZOSIN] Allergy Unknown ITCHING/WEA Verified 10/06/23 07:45 K triamterene [TRIAMTERENE] Allergy Unknown I-RASH Verified 10/06/23 07:45 PFSH PFS Disclaimer: The information contained in this section may have been updated after the patient was seen, as this information can be updated by other users. Medical History Type 2 diabetes mellitus Anxiety Gastro-esophageal reflux disease without esophagitis Grief reaction Stricture and stenosis of esophagus Esophageal thickening Esophageal thickening Femur fracture, left History of left heart catheterization Coronary artery disease Carotid artery stenosis Surgical History History of permanent cardiac pacemaker placement S/P CABG x 1 Status post aortic valve replacement with bioprosthetic valve Family History Other Family history of cancer Family history of diabetes mellitus type II Family history of hypertension Family history of myocardial infarction Social History Smoking Status: Never smoker second hand exposure: Yes alcohol intake: never substance use type: denies use current occupational status: retired Travel in the last 8 weeks: None household members: none housing: apartment lives independently: Yes marital status: single education level: middle school service: No custodial: No current occupational exposures/hazards: No caffeine: Yes do you feel safe at home: Yes victim of physical abuse: No victim of emotional abuse: No victim of sexual abuse: No would you like helpful sources: No ROS Obtained: Yes All systems reviewed & no additional complaints except as documented Physical Exam General General appearance: alert and in no apparent distress Head Head exam: atraumatic and normocephalic Eye Eye exam: Present normal appearance, PERRL and EOMI ENT ENT exam: Present normal exam, normal oropharynx, mucous membranes moist and normal external ear exam Neck Neck exam: Present normal inspection, full ROM and trachea midline; Absent tenderness Chest Chest inspection: Present normal inspection and symmetric chest wall rise; Absent tenderness Respiratory Respiratory exam: Present normal lung sounds bilaterally; Absent respiratory distress, wheezes, stridor or accessory muscle use Cardiovascular Cardiovascular exam: Present regular rate and normal rhythm Abdominal Exam Abdominal exam: Present soft; Absent distention, tenderness or guarding Extremities Exam Extremities exam: Present normal inspection, full ROM and normal capillary refill; Absent tenderness or edema Back Exam Back exam: Present normal inspection and full ROM; Absent tenderness Neurological Exam Neurological exam: Present alert, oriented X3, CN II-XII intact and normal gait; Absent motor sensory deficit Psychiatric Psychiatric exam: Present normal affect and normal mood Skin Skin exam: Present warm and dry Medical Decision Making Medical Records Medical records reviewed: Yes I reviewed the patient's medical records. Chet Inquiry Pt receiving controlled substance: No Vital Signs: 12/07/23 12:23 12/07/23 14:00 Temperature 97.9 F 97.9 F Temperature Source Oral Oral Pulse Rate 70 Pulse Rate [Radial] 73 Respiratory Rate 18 18 Blood Pressure 128/62 Blood Pressure [Right Arm] 145/65 H Blood Pressure Mean [Right Arm] 91 Blood Pressure Source Automatic Cuff Blood Pressure Source [Right Arm] Automatic Cuff Blood Pressure Position Sitting Blood Pressure Position [Right Arm] Sitting 02 Sat by Pulse Oximetry 100 Oxygen Delivery Method Room Air Lab Data Lab results reviewed: Yes I reviewed the patient's lab results. Lab Results 12/07/23 12:54: Urine Color Straw, Urine Appearance Clear, Urine pH 6.0, Ur Specific [place] <= 1.005, Urine Protein Negative, Urine Glucose (UA) Negative, Urine Ketones Negative, Urine Blood Trace-i, Urine Nitrate Negative, Urine Bilirubin Negative, Urine Urobilinogen 0.2, Ur Leukocyte Esterase Trace, Urine RBC Occasional, Urine WBC Occasional, Ur Squamous Epith Cells Occasional, Urine Bacteria Trace Orders (Tests/Meds): ORDERS Category Date Time Status UA [Urinalysis and Microscopic] Stat Lab 12/07/23 12:54 Completed Medical Decision Narrative: In summary, this patient is a 72-year-old female presenting to the Emergency Department for evaluation of recurrent and chronic abdominal pain. Differential diagnoses considered include but are not limited to functional abdominal pain, pancreatitis, colitis, gastroenteritis, cystitis. Ruling out the most morbid conditions drove assessment. It should be noted patient's history includes chronic abdominal pain which is not at goal therapy. This complicates all aspects of care by increasing patient's risk for morbidity. I reviewed patient's past medical records and noted multiple previous evaluations for similar symptoms over the last several days with reassuring CT scan 3 days ago.. On exam, the patient is ambulating throughout the emergency department out difficulty. She is at her baseline with benign abdominal exam. No focal tenderness noted. Vitals are reassuring. Her chronic abdominal pain is unchanged. She has had multiple reassuring workups over the last several days. Will obtain urinalysis to evaluate given her recent diagnosis of UTI. I had a long discussion with Sharron regarding the use of the emergency department and the fact that Dr. Adam and Dr. Jansen would have to see her with scheduled outpatient appointments as opposed to being here. She continues to have a poor understanding of this. We did facilitate arranging close follow-up appointments for the patient with general surgery as well as arranging transportation. We explained this to the patient with the help of care management. Patient was discharged home with instructions for close follow-up. Critical Care Critical Care Time Critical Care Time: No
[2023-12-07 13:27] LABS: Color,Urine Straw (Yellow)
[2023-12-07 13:31] LABS: RBC,Urine Occasional #/hpf (0-3); WBC,Urine Occasional #/hpf (0-3)
[2023-12-07 13:32] LABS: Bacteria,Urine Trace /lpf; Squamous Epithelial Cell,Urine Occasional #/hpf (0-5)
--- NOTE | 2023-12-07 13:37 | SW/DCPLANNER ---
I spoke w/ this patient in ED regarding services at home. After a lengthy conversation w/ patient she is agreeable for information to be faxed to [facility] for services. I spoke w/ Lennox at [facility] and she will review information and make contact w/ patient. I also provided this patient w/ information for [facility] [employer]. Patient is not interested in placement at this time. I will continue to follow up w/ ED staff for any future needs for this patient. I did ask ED staff to please have a follow up appointment w/ PCP scheduled prior to discharge from ED.
[2023-12-07 14:00] VITALS: BP 128/62; PULSE 70; RESP 18; TEMP 36.6; O2SAT 99
--- NOTE | 2023-12-07 14:00 | PC.WOUNDNOTE ---
PT MADE APPT WITH ALL RAN FOR 12/14/2023 AT 10:30. DISCUSSED IN LENGTH WITH PT IMPORTANCE OF KEEPING APPT FOR FURTHER CARE/TREATMENT. PT V/U
--- NOTE | 2023-12-07 14:21 | SW/DCPLANNER ---
Addendum entered by Ayana Banuelos 12/07/23 14:54: I have arrange [facility] for this patient follow up appointment w/ Dr Jansen on 12/14/23 at 10:30AM. Confirmation ID# [id number]. Original Note: I have arranged [employer] for this patient. Confirmation #:[id number]
== END 2023-12-07 14:00 | disposition home or self-care (01) ==
PROVIDERS: Emergency Provider Emergency Medicine; PCP Internal Medicine
DX: R10.9 Unspecified abdominal pain (principal); G89.29 Other chronic pain
CPT/HCPCS: 81001; 99283

== ENCOUNTER 2023-12-09 14:26 | Emergency (ER) | payer MEDICARE, OTHER, SELFPAY ==
[2023-12-09 14:40] VITALS: BP 148/76; PULSE 74; RESP 18; TEMP 36.8; O2SAT 97; BMI 22.6
[2023-12-09 15:17] VITALS: BP 148/76; PULSE 74; RESP 18; TEMP 36.8; O2SAT 97
--- NOTE | 2023-12-09 15:19 | ED_ITS ---
Discharge Plan Prescriptions Prescriptions: New nystatin 100,000 unit/gram ointment 1 applic topical BID Qty: 30 0RF Rx Instructions: apply to area as directed No Action venlafaxine 37.5 mg tablet 37.5 mg PO BID metformin 500 mg tablet 500 mg PO BID quetiapine [Seroquel] 50 mg tablet 50 mg PO HS metoprolol succinate 50 mg tablet extended release 24 hr See Rx Instructions .ROUTE .COMPLEX Qty: 90 3RF Dose Instruction: TAKE ONE TABLET BY MOUTH ONCE A DAY FOR HIGH BLOOD PRESSURE Rx Instructions: TAKE ONE TABLET BY MOUTH ONCE A DAY FOR HIGH BLOOD PRESSURE loperamide 2 mg capsule 2 mg PO Q6H PRN (Reason: loose stool) Qty: 20 0RF amlodipine 5 mg tablet 5 mg PO DAILY Qty: 30 2RF acetaminophen [Pain Relief ES (acetaminophen)] 500 mg tablet 500 - 1,000 mg PO Q6HP PRN (Reason: Pain) clopidogrel [Plavix] 75 mg tablet 75 mg PO DAILY meclizine 12.5 mg tablet 12.5 mg PO DAILYP PRN (Reason: Dizziness Or Vertigo) sennosides-docusate sodium [Stool Softener-Stimulant Laxat] 8.6-50 mg Tablet 1 tab PO DAILY PRN (Reason: Constipation) Qty: 0 0RF diazepam 2 mg tablet 2 mg PO TID PRN (Reason: Anxiety) 30 Days Qty: 90 0RF alendronate 70 mg tablet 70 mg PO WEEKLY Rx Instructions: Take on omeprazole 20 mg capsule,delayed release(DR/EC) 20 mg PO DAILY calcium carbonate-vitamin D3 500 mg-2.5 mcg (100 unit) tablet,chewable 1 tab PO BID cholecalciferol (vitamin D3) 50 mcg (2,000 unit) tablet 2,000 unit PO DAILY atorvastatin 40 mg tablet 40 mg PO DAILY lisinopril 20 mg tablet 20 mg PO DAILY Hold Instructions: pending follow-up with PCP and recheck of potassium levels isosorbide mononitrate 30 mg tablet extended release 24 hr 30 mg PO DAILY famotidine 20 mg tablet 20 mg PO DAILY aspirin 81 mg tablet,chewable 81 mg PO DAILY gabapentin 100 mg capsule 200 mg PO HS amoxicillin-pot clavulanate 875-125 mg tablet 1 tab PO BID Qty: 20 0RF ondansetron 4 mg tablet,disintegrating 4 mg PO Q8H PRN (Reason: nausea and vomiting) 4 Days Qty: 12 0RF polyethylene glycol 3350 [Miralax] 17 gram/dose powder 17 g PO DAILY Qty: 510 0RF nitrofurantoin monohyd/m-cryst [Macrobid] 100 mg capsule 100 mg PO BID 5 Days Qty: 10 0RF Rx Instructions: must administer with a meal/food Discharge ED Provider: Leslie Springer [facility] General Stated complaint: hemorrhoid Mode of Arrival: Ambulatory Source of Information: Patient Limitations: No Limitations Time Seen by Provider: 12/09/23 15:22 Description of Symptoms (Recalled from Triage Doc. by RN): PATIENT C/O BURNING AND ITCHING TO BUTTOCK AREA HEENT Symptoms (Recalled from RN notes): No Resp Symptoms (Recalled from RN notes): No Skin Symptoms (Recalled from RN notes): No MS Symptoms (Recalled from RN notes): No Functional Status (Recalled from RN notes): WNL History of Present Illness Provider Complaint: Patient states that she has been having some burning and itching to her buttock area and was worried that she may have a hemorrhoid states she had some old medication and she has been using it but not helped much Related Data Home Medications Medication Instructions Recorded Confirmed venlafaxine 37.5 mg tablet 37.5 mg PO BID mood 07/26/17 10/05/23 metformin 500 mg tablet 500 mg PO BID 05/13/18 10/05/23 quetiapine 50 mg tablet (Seroquel) 50 mg PO HS 12/13/18 10/05/23 acetaminophen 500 mg tablet (Pain 500 - 1,000 mg PO Q6HP PRN Pain 09/24/22 10/05/23 Relief Extra Strength (acetaminophen)) clopidogrel 75 mg tablet (Plavix) 75 mg PO DAILY 02/27/23 10/05/23 meclizine 12.5 mg tablet 12.5 mg PO DAILYP PRN Dizziness Or 02/28/23 10/05/23 Vertigo alendronate 70 mg tablet 70 mg PO WEEKLY 07/21/23 10/05/23 aspirin 81 mg chewable tablet 81 mg PO DAILY 07/21/23 10/05/23 atorvastatin 40 mg tablet 40 mg PO DAILY 07/21/23 10/05/23 calcium carbonate 500 mg-vitamin 1 tab PO BID 07/21/23 10/05/23 D3 2.5 mcg (100 unit) chewable tablet cholecalciferol (vitamin D3) 50 2,000 unit PO DAILY 07/21/23 10/05/23 mcg (2,000 unit) tablet famotidine 20 mg tablet 20 mg PO DAILY 07/21/23 10/05/23 gabapentin 100 mg capsule 200 mg PO HS 07/21/23 10/05/23 isosorbide mononitrate 30 mg 30 mg PO DAILY 07/21/23 10/05/23 tablet,extended release 24 hr lisinopril 20 mg tablet 20 mg PO DAILY 07/21/23 10/05/23 omeprazole 20 mg capsule,delayed 20 mg PO DAILY 07/21/23 10/05/23 release Previous Rx's Medication Instructions Recorded diazepam 2 mg tablet 2 mg PO TID PRN Anxiety 30 days 03/03/23 #90 tabs sennosides 8.6 mg-docusate sodium 1 tab PO DAILY PRN Constipation #0 03/03/23 50 mg tablet (Stool tabs Softener-Stimulant Laxative) metoprolol succinate 50 mg See Rx Instructions .Route 10/11/23 tablet,extended release 24 hr .COMPLEX #90 tabs amoxicillin 875 mg-potassium 1 tab PO BID diverticulitis #20 11/28/23 clavulanate 125 mg tablet tabs ondansetron 4 mg disintegrating 4 mg PO Q8H PRN nausea and 11/28/23 tablet vomiting 4 days #12 tabs amlodipine 5 mg tablet 5 mg PO DAILY #30 tabs 12/03/23 loperamide 2 mg capsule 2 mg PO Q6H PRN loose stool #20 12/03/23 caps nitrofurantoin 100 mg PO BID 5 days #10 caps 12/04/23 monohydrate/macrocrystals 100 mg capsule (Macrobid) polyethylene glycol 3350 17 17 g PO DAILY #510 grams 12/04/23 gram/dose oral powder (Miralax) nystatin 100,000 unit/gram topical 1 applic topical BID #30 grams 12/09/23 ointment Allergies Allergy/AdvReac Type Severity Reaction Status Date / Time codeine [CODEINE] Allergy Unknown WEAK Verified 10/06/23 07:45 hydrochlorothiazide Allergy Unknown I-RASH Verified 10/06/23 07:45 [HYDROCHLOROTHIAZIDE] hydrocodone [HYDROCODONE] Allergy Unknown I-RASH Verified 10/06/23 07:45 metoclopramide Allergy Unknown SLURRED Verified 10/06/23 07:45 [METOCLOPRAMIDE] SPEECH, WEAK nifedipine [NIFEDIPINE] Allergy Unknown I-HIVES Verified 10/06/23 07:45 prazosin [PRAZOSIN] Allergy Unknown ITCHING/WEA Verified 10/06/23 07:45 K triamterene [TRIAMTERENE] Allergy Unknown I-RASH Verified 10/06/23 07:45 Worker's Comp Is this a Worker's Comp case?: No [facility] Disclaimer: The information contained in this section may have been updated after the patient was seen, as this information can be updated by other users. Medical History Type 2 diabetes mellitus Anxiety Gastro-esophageal reflux disease without esophagitis Grief reaction Stricture and stenosis of esophagus Esophageal thickening Esophageal thickening Femur fracture, left History of left heart catheterization Coronary artery disease Carotid artery stenosis Surgical History History of permanent cardiac pacemaker placement S/P CABG x 1 Status post aortic valve replacement with bioprosthetic valve Family History Other Family history of cancer Family history of diabetes mellitus type II Family history of hypertension Family history of myocardial infarction Social History Smoking Status: Never smoker second hand exposure: Yes alcohol intake: never substance use type: denies use current occupational status: retired Travel in the last 8 weeks: None household members: none housing: apartment lives independently: Yes marital status: single education level: middle school service: No skilled nursing: No current occupational exposures/hazards: No caffeine: Yes do you feel safe at home: Yes victim of physical abuse: No victim of emotional abuse: No victim of sexual abuse: No would you like helpful sources: No ROS Obtained: Yes All systems reviewed & no additional complaints except as documented and Yes Systems reviewed as appropriate & no additional complaints except as documented Constitutional Constitutional: Reports system reviewed and no additional complaints, except as documented and Reports as per HPI Eyes Eyes: Reports system reviewed and no additional complaints, except as documented and Reports as per HPI ENT Ears, Nose, Mouth, and Throat: Reports system reviewed and no additional complaints, except as documented and Reports as per HPI Cardiovascular Cardiovascular: Reports system reviewed and no additional complaints, except as documented and Reports as per HPI Respiratory Respiratory: Reports system reviewed and no additional complaints, except as documented and Reports as per HPI Gastrointestinal Gastrointestingal: Reports system reviewed and no additional complaints, except as documented and as per HPI Genitourinary Female Genitourinary: Reports other Comments: itching and burning to vaginal and buttock area Physical Exam General General appearance: alert and in no apparent distress ENT ENT exam: Present mucous membranes moist Respiratory Respiratory exam: Present normal lung sounds bilaterally; Absent respiratory distress or wheezes Cardiovascular Cardiovascular exam: Present regular rate, normal rhythm and normal heart sounds Rectal Exam Rectal exam: Present other (no hemorrhoid visualized however did not red rash with irregular borders appears like yeast rash) External exam: Present other (red rash noted with irregular borders appears like yeast rash) Neurological Exam Neurological exam: Present alert, oriented X3 and normal gait Medical Decision Making Chet Inquiry Pt receiving controlled substance: No Chet was queried for this patient: No Vital Signs: 12/09/23 14:40 12/09/23 15:17 Temperature 98.2 F 98.2 F Temperature Source Oral Pulse Rate 74 Pulse Rate [Left Brachial] 74 Respiratory Rate 18 18 Blood Pressure 148/76 H Blood Pressure [Left Arm] 148/76 H Blood Pressure Mean [Left Arm] 100 Blood Pressure Source [Left Arm] Automatic Cuff Blood Pressure Position [Left Arm] Sitting 02 Sat by Pulse Oximetry 97 Oxygen Delivery Method Room Air
== END 2023-12-09 15:25 | disposition home or self-care (01) ==
PROVIDERS: Emergency Provider Nurse Practitioner; PCP Internal Medicine
DX: B37.2 Candidiasis of skin and nail (principal)
CPT/HCPCS: 99212; 99214; G0463

== ENCOUNTER 2023-12-16 13:38 | Emergency (ER) | payer MEDICARE, OTHER, SELFPAY ==
[2023-12-16 13:56] VITALS: BP 147/72; PULSE 73; RESP 16; TEMP 36.7; O2SAT 97
--- NOTE | 2023-12-16 15:07 | SW/DCPLANNER ---
I have arranged [employer] for this patient. Confirmation ID [id number].
== END 2023-12-16 13:57 | disposition left against medical advice (07) ==
PROVIDERS: Emergency Provider Emergency Medicine; PCP Internal Medicine
DX: Z53.21 Procedure and treatment not carried out due to patient leaving prior to being seen by health care provider (principal)
CPT/HCPCS: 99211

== ENCOUNTER 2023-12-29 13:15 | Emergency (ER) | payer MEDICARE, OTHER, SELFPAY ==
[2023-12-29 13:08] VITALS: BP 146/69; PULSE 74; RESP 20; TEMP 36.8; O2SAT 97; BMI 22.6
[2023-12-29] MEDS: BELLADONNA ALKALOIDS 60 ML ML PO (13:21)
[2023-12-29] MEDS: DICYCLOMINE 10MG CAPSULE 20 MG PO (13:21)
[2023-12-29] MEDS: ACETAMINOPHEN 500MG TAB 1000 MG PO (13:21)
[2023-12-29 13:28] LABS: Basophils # 0.1 K/mm3 (0-0.2); Basophils % 1.2 % (0.1-2.0); Eosinophils # 0.1 K/mm3 (0.0-0.4); Eosinophils % 1.3 % (0.1-12.0); Hematocrit 32.9 % (37.0-47.0); Hemoglobin 10.8 g/dL (12.2-16.2); Lymphocytes % 21.8 % (10-50); Mean Corpuscular HGB Conc 32.9 g/dL (31.8-35.4); Mean Corpuscular Hemoglobin 33.2 pg (27.0-31.2); Mean Platelet Volume 8.5 fl (7.4-10.4); Monocytes # 0.4 K/mm3 (0.1-1.0); Monocytes % 8.3 % (1.7-9.3); Neutrophils % 67.4 % (37.0-80.0); Platelet Count 240 K/mm3 (142-424); Red Blood Count 3.25 M/mm3 (4.20-5.40); Red Cell Distribution Width 15.3 % (11.5-17.5); White Blood Count 4.5 K/mm3 (4.8-10.8)
[2023-12-29 13:33] LABS: Chloride 100 mmol/L (98-107); Potassium 4.3 mmoL/L (3.5-5.1); Sodium 133 mmol/L (136-145)
--- NOTE | 2023-12-29 13:35 | XR_ITS ---
FINAL REPORT CLINICAL HISTORY: abdominal pain FINDINGS: The lungs are grossly clear. There is no evidence of effusion, pneumothorax or other significant pleural disease. Patient is status post CABG. The heart size is normal. There is a nonspecific bowel gas pattern with few air-fluid levels in the colon which can be seen with ileus or enteritis. There is no free air. IMPRESSION: Nonspecific bowel gas pattern. Reviewed, Interpreted and Dictated by Monisha Shi MD Transcribed by Tana Anderson Authenticated and [facility]
[2023-12-29 13:36] LABS: Alanine Aminotransferase 20 U/L (12-78); Albumin Level 4.6 g/dl (3.5-5.0); Albumin/Globulin Ratio 1.8 (1.1-1.8); Alkaline Phosphatase 53 U/L (38-126); Anion Gap 12.3 mEq/L (5-15); Aspartate Amino Transferase 29 U/L (14-36); Bilirubin,Total 0.5 mg/dl (0.2-1.3); Blood Urea Nitrogen 14 mg/dl (7-17); Calcium 9.7 mg/dl (8.4-10.2); Carbon Dioxide 25 mmol/L (22.0-30.0); Creatinine Clearance Estimated 40 mL/min (50-200); Estimated Glomerular Filt Rate 97 ml/min (>60); GFR (African American) 118 ML/MIN (>60); Globulin 2.5 g/dL (1.3-3.2); Glucose 122 mg/dl (74-100); Lipase 35 U/L (23-300); Total Protein,Serum 7.1 g/dl (6.3-8.2)
--- NOTE | 2023-12-29 13:48 | PC.NURSE ---
pt out of room for chest x-ray
[2023-12-29 14:05] LABS: Microscopic, Urine URINE MICROSCOPIC (MICROSCOPIC)
[2023-12-29 14:08] LABS: Appearance,Urine CLEAR (Clear); Bilirubin,Urine Negative (Negative); Blood, Urine TRACE-I (Negative); Color,Urine YELLOW (Yellow); Glucose,Urine (UA) Negative (Negative); Ketones,Urine Negative (Negative); Leukocyte Esterase,Urine Negative (Negative); Nitrate,Urine Negative (Negative); Protein,Urine Negative (Negative); Urobilinogen,Urine 0.2 EU/dl (0.2)
[2023-12-29 14:22] LABS: RBC,Urine Occasional #/hpf (0-3)
--- NOTE | 2023-12-29 14:24 | [facility].EDGENADL ---
Discharge Plan Disposition Patient Disposition: Home, Self-Care Chief Complaint: Abdominal Pain Prescriptions Prescriptions: No Action fluticasone propionate 50 mcg/actuation spray,suspension intranasal venlafaxine 37.5 mg tablet 37.5 mg PO BID metformin 500 mg tablet 500 mg PO BID quetiapine [Seroquel] 50 mg tablet 50 mg PO HS Linzess 145 mcg capsule 145 mcg PO DAILY Qty: 30 2RF metoprolol succinate 50 mg tablet extended release 24 hr See Rx Instructions .ROUTE .COMPLEX Qty: 90 3RF Dose Instruction: TAKE ONE TABLET BY MOUTH ONCE A DAY FOR HIGH BLOOD PRESSURE Rx Instructions: TAKE ONE TABLET BY MOUTH ONCE A DAY FOR HIGH BLOOD PRESSURE amlodipine 5 mg tablet 5 mg PO DAILY Qty: 30 2RF clopidogrel [Plavix] 75 mg tablet 75 mg PO DAILY Qty: 90 1RF acetaminophen [Pain Relief ES (acetaminophen)] 500 mg tablet 500 - 1,000 mg PO Q6HP PRN (Reason: Pain) meclizine 12.5 mg tablet 12.5 mg PO DAILYP PRN (Reason: Dizziness Or Vertigo) sennosides-docusate sodium [Stool Softener-Stimulant Laxat] 8.6-50 mg Tablet 1 tab PO DAILY PRN (Reason: Constipation) Qty: 0 0RF diazepam 2 mg tablet 2 mg PO TID PRN (Reason: Anxiety) 30 Days Qty: 90 0RF omeprazole 20 mg capsule,delayed release(DR/EC) 20 mg PO DAILY calcium carbonate-vitamin D3 500 mg-2.5 mcg (100 unit) tablet,chewable 1 tab PO BID cholecalciferol (vitamin D3) 50 mcg (2,000 unit) tablet 2,000 unit PO DAILY atorvastatin 40 mg tablet 40 mg PO DAILY isosorbide mononitrate 30 mg tablet extended release 24 hr 30 mg PO DAILY famotidine 20 mg tablet 20 mg PO DAILY aspirin 81 mg tablet,chewable 81 mg PO DAILY gabapentin 100 mg capsule 200 mg PO HS ondansetron 4 mg tablet,disintegrating 4 mg PO Q8H PRN (Reason: nausea and vomiting) 4 Days Qty: 12 0RF polyethylene glycol 3350 [Miralax] 17 gram/dose powder 17 g PO DAILY Qty: 510 0RF nystatin 100,000 unit/gram ointment 1 applic topical BID Qty: 30 0RF Rx Instructions: apply to area as directed Referrals Follow up/Referrals: Hansel Ruff MD [Primary Care Provider] - See instructions Activity Restrictions/Add. Instructions Additional Instructions/Restrictions: At this time it was felt you are safe to be discharged home. If new or worsening symptoms please do not hesitate to return the emergency department. Please call and schedule appointment as soon as you are able with Dr. Hernandez with gastroenterology and hepatology at the [facility] as we talked about. She can be reached at [phone]. Clinical Impressions Clinical Impression: Abdominal pain Instructions Patient Instructions: DI for Acute Abdominal Pain Discharge ED Provider: Kamlesh Wei General Adult HPI General Chief complaint: Abdominal Pain Stated complaint: abdominal pain Time Seen by Provider: 12/29/23 13:15 Mode of Arrival: EMS Source of Information: Patient Limitations: No Limitations Description of Symptoms (Recalled from ER Triage Doc. by RN): pt to ed c/o epigatric pain that started this morning History of Present Illness HPI narrative: Patient is a 73-year-old female well-known to the emergency department who presents emergency department for evaluation of abdominal pain. Patient states that her abdominal pain is a little worse than normal however it is largely consistent with her baseline. She is not vomiting, does not report any other acute complaints. When asked if she followed up with her senior java developer she states that there is none here. When reminded that she was referred to [place] she states that she never went. Related Data Home Medications Medication Instructions Recorded Confirmed venlafaxine 37.5 mg tablet 37.5 mg PO BID mood 07/26/17 12/16/23 metformin 500 mg tablet 500 mg PO BID 05/13/18 12/16/23 quetiapine 50 mg tablet (Seroquel) 50 mg PO HS 12/13/18 12/16/23 acetaminophen 500 mg tablet (Pain 500 - 1,000 mg PO Q6HP PRN Pain 09/24/22 12/16/23 Relief Extra Strength (acetaminophen)) meclizine 12.5 mg tablet 12.5 mg PO DAILYP PRN Dizziness Or 02/28/23 12/16/23 Vertigo aspirin 81 mg chewable tablet 81 mg PO DAILY 07/21/23 12/16/23 atorvastatin 40 mg tablet 40 mg PO DAILY 07/21/23 12/16/23 calcium carbonate 500 mg-vitamin 1 tab PO BID 07/21/23 12/16/23 D3 2.5 mcg (100 unit) chewable tablet cholecalciferol (vitamin D3) 50 2,000 unit PO DAILY 07/21/23 12/16/23 mcg (2,000 unit) tablet famotidine 20 mg tablet 20 mg PO DAILY 07/21/23 12/16/23 gabapentin 100 mg capsule 200 mg PO HS 07/21/23 12/16/23 isosorbide mononitrate 30 mg 30 mg PO DAILY 07/21/23 12/16/23 tablet,extended release 24 hr omeprazole 20 mg capsule,delayed 20 mg PO DAILY 07/21/23 12/16/23 release fluticasone propionate 50 intranasal 12/15/23 12/16/23 mcg/actuation nasal spray,suspension Previous Rx's Medication Instructions Recorded diazepam 2 mg tablet 2 mg PO TID PRN Anxiety 30 days 03/03/23 #90 tabs sennosides 8.6 mg-docusate sodium 1 tab PO DAILY PRN Constipation #0 03/03/23 50 mg tablet (Stool tabs Softener-Stimulant Laxative) metoprolol succinate 50 mg See Rx Instructions .Route 10/11/23 tablet,extended release 24 hr .COMPLEX #90 tabs ondansetron 4 mg disintegrating 4 mg PO Q8H PRN nausea and 11/28/23 tablet vomiting 4 days #12 tabs amlodipine 5 mg tablet 5 mg PO DAILY #30 tabs 12/03/23 polyethylene glycol 3350 17 17 g PO DAILY #510 grams 12/04/23 gram/dose oral powder (Miralax) nystatin 100,000 unit/gram topical 1 applic topical BID #30 grams 12/09/23 ointment clopidogrel 75 mg tablet (Plavix) 75 mg PO DAILY #90 tabs 12/10/23 linaclotide 145 mcg capsule 145 mcg PO DAILY constipation #30 12/16/23 (Linzess) caps Allergies Allergy/AdvReac Type Severity Reaction Status Date / Time codeine [CODEINE] Allergy Unknown WEAK Verified 12/16/23 13:56 hydrochlorothiazide Allergy Unknown I-RASH Verified 12/16/23 13:56 [HYDROCHLOROTHIAZIDE] hydrocodone [HYDROCODONE] Allergy Unknown I-RASH Verified 12/16/23 13:56 metoclopramide Allergy Unknown SLURRED Verified 12/16/23 13:56 [METOCLOPRAMIDE] SPEECH, WEAK nifedipine [NIFEDIPINE] Allergy Unknown I-HIVES Verified 12/16/23 13:56 prazosin [PRAZOSIN] Allergy Unknown ITCHING/WEA Verified 12/16/23 13:56 K triamterene [TRIAMTERENE] Allergy Unknown I-RASH Verified 12/16/23 13:56 [facility] Disclaimer: The information contained in this section may have been updated after the patient was seen, as this information can be updated by other users. Medical History Type 2 diabetes mellitus Anxiety Gastro-esophageal reflux disease without esophagitis Grief reaction Stricture and stenosis of esophagus Esophageal thickening Esophageal thickening Femur fracture, left History of left heart catheterization 4 stents Coronary artery disease Carotid artery stenosis Surgical History History of permanent cardiac pacemaker placement 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 Family History Other Family history of cancer Family history of diabetes mellitus type II Family history of hypertension Family history of myocardial infarction Social History Smoking Status: Never smoker second hand exposure: Yes alcohol intake: never substance use type: denies use current occupational status: retired Travel in the last 8 weeks: None household members: none housing: apartment lives independently: Yes marital status: single education level: middle school service: No detention: No current occupational exposures/hazards: No caffeine: Yes do you feel safe at home: Yes victim of physical abuse: No victim of emotional abuse: No victim of sexual abuse: No would you like helpful sources: No ROS Obtained: Yes Systems reviewed as appropriate & no additional complaints except as documented Physical Exam General General appearance: alert and in no apparent distress Head Head exam: atraumatic and normocephalic Eye Eye exam: Present PERRL ENT ENT exam: Present mucous membranes moist Neck Neck exam: Present normal inspection Chest Chest inspection: Present normal inspection and symmetric chest wall rise Respiratory Respiratory exam: Present normal lung sounds bilaterally; Absent respiratory distress Cardiovascular Cardiovascular exam: Present regular rate and normal rhythm Abdominal Exam Abdominal exam: Present soft; Absent tenderness, guarding or rebound Extremities Exam Extremities exam: Present normal inspection Neurological Exam Neurological exam: Present alert Psychiatric Psychiatric exam: Present normal affect Skin Skin exam: Present warm and dry Medical Decision Making Chet Inquiry Pt receiving controlled substance: No Vital Signs: 12/29/23 13:08 12/29/23 14:42 Temperature 98.3 F Temperature Source Oral Pulse Rate 74 Pulse Rate [Left Radial] 74 Respiratory Rate 20 Blood Pressure 128/70 Blood Pressure [Right Arm] 146/69 H Blood Pressure Mean [Right Arm] 94 02 Sat by Pulse Oximetry 97 100 Oxygen Delivery Method Room Air Room Air Lab Data Lab Results 12/29/23 13:20: WBC 4.5 L, RBC 3.25 L, Hgb 10.8 L, Hct 32.9 L, MCV 101.0 H, MCH 33.2 H, MCHC 32.9, RDW 15.3, Plt Count 240, MPV 8.5, Neut % (Auto) 67.4, Lymph % (Auto) 21.8, [place] % (Auto) 8.3, Eos % (Auto) 1.3, Baso % (Auto) 1.2, Neut # (Auto) 3.0, Lymph # (Auto) 1.0, [place] # (Auto) 0.4, Eos # (Auto) 0.1, Baso # (Auto) 0.1, Sodium 133 L, Potassium 4.3, Chloride 100, Carbon Dioxide 25, Anion Gap 12.3, BUN 14, Creatinine 0.60, Estimated Creat Clear 40, Estimated GFR 97, Est GFR ( Amer) 118, Glucose 122 H, Calcium 9.7, Total Bilirubin 0.5, AST 29, ALT 20, Alkaline Phosphatase 53, Total Protein 7.1, Albumin 4.6, Globulin 2.5, Albumin/Globulin Ratio 1.8, Lipase 35 12/29/23 14:01: Urine Color Yellow, Urine Appearance Clear, Urine pH 6.0, Ur Specific Shafer 1.010, Urine Protein Negative, Urine Glucose (UA) Negative, Urine Ketones Negative, Urine Blood Trace-i, Urine Nitrate Negative, Urine Bilirubin Negative, Urine Urobilinogen 0.2, Ur Leukocyte Esterase Negative, Urine RBC Occasional, Urine WBC None, Ur Squamous Epith Cells None, Urine Bacteria None 12/29/23 13:20 12/29/23 13:20 Orders (Tests/Meds): ED MEDICATIONS Discontinued Medications Generic Name Dose Route Start Last Admin Trade Name Juan F PRN Reason Stop Dose Admin Acetaminophen 1,000 mg 12/29/23 13:06 12/29/23 13:21 Acetaminophen 500mg Tab PO 12/29/23 13:07 1,000 mg ONCE ONE Administration Belladonna Alkaloids 60 ml 12/29/23 13:06 12/29/23 13:21 Belladonna Alkaloids 60 Ml Ml PO 12/29/23 13:07 60 ml ONCE ONE Administration Dicyclomine HCl 20 mg 12/29/23 13:06 12/29/23 13:21 Dicyclomine 10mg Capsule PO 12/29/23 13:07 20 mg ONCE ONE Administration ORDERS Category Date Time Status Acute abdomen XR series [XR acute abdomen series] Stat Exams 12/29/23 13:35 Taken CBC w/Auto Diff [Complete Blood Count Auto Diff] Stat Lab 12/29/23 13:20 Completed CMP [Comprehensive Metabolic Panel] Stat Lab 12/29/23 13:20 Completed Lipase Stat Lab 12/29/23 13:20 Completed Trop I [Troponin I] Stat Lab 12/29/23 13:20 Received Troponin I Q3H Lab 12/29/23 17:30 Ordered Troponin I Q3H Lab 12/29/23 20:30 Ordered UA [Urinalysis and Microscopic] Stat Lab 12/29/23 14:01 Completed EKG Request [ECG Request] Stat Y 12/29/23 14:28 Ordered ECG Data Tracing #1: Independently interpreted by me rate is 80, rhythm is V paced, no excessive discordance, no concordant ST elevation. QTc 446. Medical Decision Narrative: In summary patient is a 73-year-old female who presents emergency department for repeat evaluation of chronic abdominal pain. Patient is hemodynamically stable and nontoxic-appearing upon arrival, afebrile. Patient is well-known to this department has had multiple investigations which have been unremarkable. She does have a history of constipation however states she is stooling normally. Patient is nontender and distractible abdominal exam and has very poor insight into her physiology and need for follow-up. CT imaging was considered however getting conducted multiple times before and chronic pain will be deferred. Workup will be conducted with hematologic labs and urinalysis as pancreatitis and urinary tract infection remain on the differential. Workup reviewed by me, hematologic labs are nonactionable, no significant leukocytosis, no transfusional anemia, no MAX or critical electrolyte abnormality, urinalysis interpreted by me and not consistent with infection. On repeat evaluation patient was at her baseline, underwent p.o. trial was successful and it was impressed upon her that she would benefit from specialty follow-up for which she was encouraged to call and schedule appointment with Dr. Hernandez and said that she will go. Critical Care Critical Care Time Critical Care Time: No
--- NOTE | 2023-12-29 14:40 | ECG_ITS ---
APPROVED REPORT Exam: Resting ECG HR:80 bpm ECG Measurements Heart Rate 80 AXES UT 172 P 67 QRSd 159 QRS -56 QT 411 T 87 QTc 446 Conclusion ELECTRONIC VENTRICULAR PACEMAKER ABNORMAL RHYTHM ECG Electronically signed by : YAMILET ROONEY, 12/30/2023 07:05:06
[2023-12-29 14:42] VITALS: BP 128/70; PULSE 74; O2SAT 100
[2023-12-29 14:50] LABS: Troponin I < 0.01 ng/ml (0.00-0.034)
[2023-12-29 15:14] VITALS: BP 118/74; PULSE 71; RESP 18; TEMP 36.6; O2SAT 96
== END 2023-12-29 15:19 | disposition home or self-care (01) ==
PROVIDERS: Emergency Provider Emergency Medicine; PCP Internal Medicine
DX: R10.13 Epigastric pain (principal); G89.29 Other chronic pain; R41.89 Other symptoms and signs involving cognitive functions and awareness; E11.9 Type 2 diabetes mellitus without complications; K21.9 Gastro-esophageal reflux disease without esophagitis; I65.29 Occlusion and stenosis of unspecified carotid artery; I11.9 Hypertensive heart disease without heart failure; I25.10 Atherosclerotic heart disease of native coronary artery without angina pectoris; Z95.1 Presence of aortocoronary bypass graft; Z95.0 Presence of cardiac pacemaker; F45.42 Pain disorder with related psychological factors; Z79.84 Long term (current) use of oral hypoglycemic drugs
CPT/HCPCS: 74021; 80053; 81001; 83690; 84484; 85025; 93005; 99284

== ENCOUNTER 2023-12-30 12:43 | Emergency (ER) | payer MEDICARE, OTHER, SELFPAY ==
[2023-12-30 12:43] VITALS: BP 142/78; PULSE 68; RESP 18; TEMP 36.5; O2SAT 96; BMI 21.9
--- NOTE | 2023-12-30 13:30 | PC.NURSE ---
DR ROONEY AT BEDSIDE
--- NOTE | 2023-12-30 13:32 | HMH.EDGENADL ---
Discharge Plan Disposition Patient Disposition: Home, Self-Care Chief Complaint: Abdominal Pain Prescriptions Prescriptions: No Action fluticasone propionate 50 mcg/actuation spray,suspension intranasal venlafaxine 37.5 mg tablet 37.5 mg PO BID metformin 500 mg tablet 500 mg PO BID quetiapine [Seroquel] 50 mg tablet 50 mg PO HS Linzess 145 mcg capsule 145 mcg PO DAILY Qty: 30 2RF metoprolol succinate 50 mg tablet extended release 24 hr See Rx Instructions .ROUTE .COMPLEX Qty: 90 3RF Dose Instruction: TAKE ONE TABLET BY MOUTH ONCE A DAY FOR HIGH BLOOD PRESSURE Rx Instructions: TAKE ONE TABLET BY MOUTH ONCE A DAY FOR HIGH BLOOD PRESSURE amlodipine 5 mg tablet 5 mg PO DAILY Qty: 30 2RF clopidogrel [Plavix] 75 mg tablet 75 mg PO DAILY Qty: 90 1RF acetaminophen [Pain Relief ES (acetaminophen)] 500 mg tablet 500 - 1,000 mg PO Q6HP PRN (Reason: Pain) meclizine 12.5 mg tablet 12.5 mg PO DAILYP PRN (Reason: Dizziness Or Vertigo) sennosides-docusate sodium [Stool Softener-Stimulant Laxat] 8.6-50 mg Tablet 1 tab PO DAILY PRN (Reason: Constipation) Qty: 0 0RF diazepam 2 mg tablet 2 mg PO TID PRN (Reason: Anxiety) 30 Days Qty: 90 0RF omeprazole 20 mg capsule,delayed release(DR/EC) 20 mg PO DAILY calcium carbonate-vitamin D3 500 mg-2.5 mcg (100 unit) tablet,chewable 1 tab PO BID cholecalciferol (vitamin D3) 50 mcg (2,000 unit) tablet 2,000 unit PO DAILY atorvastatin 40 mg tablet 40 mg PO DAILY isosorbide mononitrate 30 mg tablet extended release 24 hr 30 mg PO DAILY famotidine 20 mg tablet 20 mg PO DAILY aspirin 81 mg tablet,chewable 81 mg PO DAILY gabapentin 100 mg capsule 200 mg PO HS ondansetron 4 mg tablet,disintegrating 4 mg PO Q8H PRN (Reason: nausea and vomiting) 4 Days Qty: 12 0RF polyethylene glycol 3350 [Miralax] 17 gram/dose powder 17 g PO DAILY Qty: 510 0RF nystatin 100,000 unit/gram ointment 1 applic topical BID Qty: 30 0RF Rx Instructions: apply to area as directed Referrals Follow up/Referrals: Provider,Referral, MD [Primary Care Provider] - See instructions Activity Restrictions/Add. Instructions Additional Instructions/Restrictions: At this time it was felt you are safe to be discharged home. If new or worsening symptoms please do not hesitate to return the emergency department. As discussed is very important that you follow-up with your insulation machine operator for continued evaluation. If you become significantly constipated please buy MiraLAX [id number]. Clinical Impressions Clinical Impression: Chronic abdominal pain Instructions Patient Instructions: DI for Acute Abdominal Pain Discharge ED Provider: Kamlesh Wei General Adult HPI General Chief complaint: Abdominal Pain Stated complaint: ABDOMINAL PAIN Time Seen by Provider: 12/30/23 12:48 Mode of Arrival: EMS Source of Information: Patient and EMS Limitations: No Limitations Description of Symptoms (Recalled from ER Triage Doc. by RN): stomach pain History of Present Illness HPI narrative: Patient is a 73-year-old female very well-known to this emergency department, she has history of chronic abdominal pain, other comorbidities to presents emergency department for repeat evaluation of abdominal pain. It is no worse than it normally is, it is then in the normal location, periumbilical and epigastric, persistent since yesterday. It has been persistent for months. Since it has not gone away in the last 24 hours she presents here for continued evaluation. She is very concerned at the indication of the CT scan that was conducted last month that was stated as epigastric and is concerned that that means tumor. She has no other acute complaints at this time. Related Data Home Medications Medication Instructions Recorded Confirmed venlafaxine 37.5 mg tablet 37.5 mg PO BID mood 07/26/17 12/16/23 metformin 500 mg tablet 500 mg PO BID 05/13/18 12/16/23 quetiapine 50 mg tablet (Seroquel) 50 mg PO HS 12/13/18 12/16/23 acetaminophen 500 mg tablet (Pain 500 - 1,000 mg PO Q6HP PRN Pain 09/24/22 12/16/23 Relief Extra Strength (acetaminophen)) meclizine 12.5 mg tablet 12.5 mg PO DAILYP PRN Dizziness Or 02/28/23 12/16/23 Vertigo aspirin 81 mg chewable tablet 81 mg PO DAILY 07/21/23 12/16/23 atorvastatin 40 mg tablet 40 mg PO DAILY 07/21/23 12/16/23 calcium carbonate 500 mg-vitamin 1 tab PO BID 07/21/23 12/16/23 D3 2.5 mcg (100 unit) chewable tablet cholecalciferol (vitamin D3) 50 2,000 unit PO DAILY 07/21/23 12/16/23 mcg (2,000 unit) tablet famotidine 20 mg tablet 20 mg PO DAILY 07/21/23 12/16/23 gabapentin 100 mg capsule 200 mg PO HS 07/21/23 12/16/23 isosorbide mononitrate 30 mg 30 mg PO DAILY 07/21/23 12/16/23 tablet,extended release 24 hr omeprazole 20 mg capsule,delayed 20 mg PO DAILY 07/21/23 12/16/23 release fluticasone propionate 50 intranasal 12/15/23 12/16/23 mcg/actuation nasal spray,suspension Previous Rx's Medication Instructions Recorded diazepam 2 mg tablet 2 mg PO TID PRN Anxiety 30 days 03/03/23 #90 tabs sennosides 8.6 mg-docusate sodium 1 tab PO DAILY PRN Constipation #0 03/03/23 50 mg tablet (Stool tabs Softener-Stimulant Laxative) metoprolol succinate 50 mg See Rx Instructions .Route 10/11/23 tablet,extended release 24 hr .COMPLEX #90 tabs ondansetron 4 mg disintegrating 4 mg PO Q8H PRN nausea and 11/28/23 tablet vomiting 4 days #12 tabs amlodipine 5 mg tablet 5 mg PO DAILY #30 tabs 12/03/23 polyethylene glycol 3350 17 17 g PO DAILY #510 grams 12/04/23 gram/dose oral powder (Miralax) nystatin 100,000 unit/gram topical 1 applic topical BID #30 grams 12/09/23 ointment clopidogrel 75 mg tablet (Plavix) 75 mg PO DAILY #90 tabs 12/10/23 linaclotide 145 mcg capsule 145 mcg PO DAILY constipation #30 12/16/23 (Linzess) caps Allergies Allergy/AdvReac Type Severity Reaction Status Date / Time codeine [CODEINE] Allergy Unknown WEAK Verified 12/16/23 13:56 hydrochlorothiazide Allergy Unknown I-RASH Verified 12/16/23 13:56 [HYDROCHLOROTHIAZIDE] hydrocodone [HYDROCODONE] Allergy Unknown I-RASH Verified 12/16/23 13:56 metoclopramide Allergy Unknown SLURRED Verified 12/16/23 13:56 [METOCLOPRAMIDE] SPEECH, WEAK nifedipine [NIFEDIPINE] Allergy Unknown I-HIVES Verified 12/16/23 13:56 prazosin [PRAZOSIN] Allergy Unknown ITCHING/WEA Verified 12/16/23 13:56 K triamterene [TRIAMTERENE] Allergy Unknown I-RASH Verified 12/16/23 13:56 [facility] Disclaimer: The information contained in this section may have been updated after the patient was seen, as this information can be updated by other users. Medical History Type 2 diabetes mellitus Anxiety Gastro-esophageal reflux disease without esophagitis Grief reaction Stricture and stenosis of esophagus Esophageal thickening Esophageal thickening Femur fracture, left History of left heart catheterization 4 stents Coronary artery disease Carotid artery stenosis Surgical History History of permanent cardiac pacemaker placement 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 Family History Other Family history of cancer Family history of diabetes mellitus type II Family history of hypertension Family history of myocardial infarction Social History Smoking Status: Never smoker second hand exposure: Yes alcohol intake: never substance use type: denies use current occupational status: retired Travel in the last 8 weeks: None household members: none housing: apartment lives independently: Yes marital status: single education level: middle school service: No custodial: No current occupational exposures/hazards: No caffeine: Yes do you feel safe at home: Yes victim of physical abuse: No victim of emotional abuse: No victim of sexual abuse: No would you like helpful sources: No ROS Obtained: Yes Systems reviewed as appropriate & no additional complaints except as documented Physical Exam General General appearance: alert and in no apparent distress Head Head exam: atraumatic and normocephalic Eye Eye exam: Present PERRL ENT ENT exam: Present mucous membranes moist Neck Neck exam: Present normal inspection Chest Chest inspection: Present normal inspection and symmetric chest wall rise Respiratory Respiratory exam: Present normal lung sounds bilaterally; Absent respiratory distress Cardiovascular Cardiovascular exam: Present regular rate and normal rhythm Abdominal Exam Abdominal exam: Present soft and tenderness (Mild, epigastric) Extremities Exam Extremities exam: Present normal inspection Neurological Exam Neurological exam: Present alert Psychiatric Psychiatric exam: Present normal affect Skin Skin exam: Present warm and dry Medical Decision Making Chet Inquiry Pt receiving controlled substance: No Vital Signs: 12/30/23 12:43 Temperature 97.7 F Temperature Source Oral Pulse Rate [Left] 68 Respiratory Rate 18 Blood Pressure [Right Arm] 142/78 H Blood Pressure Mean [Right Arm] 99 02 Sat by Pulse Oximetry 96 Oxygen Delivery Method Room Air Medical Decision Narrative: In summary patient is a 73-year-old female with past medical history described above presents emergency department for evaluation of abdominal pain that is chronic. There is no acute changes. She was most concerned about wording on her formal CT reports that is confusing to her. These were explained at bedside. She does have possible hemangiomas in her liver, no large mass. Workup reviewed by me from yesterday and is nonactionable from hematologic lab standpoint. Urinalysis is not consistent with infection. She may be constipated for which it was recommended she take MiraLAX from her CT scan at the end of November. She has called and made an appointment with insulation machine operator in Home which she was repeatedly encouraged to keep. Given that her pain is at baseline, her exam is consistent with yesterday, she has had previous multiple modalities of CT imaging I do not think that she would benefit from workup at this time. Given this hematologic labs and imaging was considered but will be deferred. Patient was discharged in encouraged to follow-up with her insulation machine operator. Critical Care Critical Care Time Critical Care Time: No
[2023-12-30 13:38] VITALS: BP 144/72; PULSE 76; RESP 18; TEMP 36.7; O2SAT 95
== END 2023-12-30 13:45 | disposition home or self-care (01) ==
PROVIDERS: Emergency Provider Emergency Medicine
DX: R10.13 Epigastric pain (principal); G89.29 Other chronic pain; R41.89 Other symptoms and signs involving cognitive functions and awareness; E11.9 Type 2 diabetes mellitus without complications; K21.9 Gastro-esophageal reflux disease without esophagitis; I65.29 Occlusion and stenosis of unspecified carotid artery; I11.9 Hypertensive heart disease without heart failure; I25.10 Atherosclerotic heart disease of native coronary artery without angina pectoris; F45.42 Pain disorder with related psychological factors; Z95.1 Presence of aortocoronary bypass graft; Z95.0 Presence of cardiac pacemaker; Z79.84 Long term (current) use of oral hypoglycemic drugs
CPT/HCPCS: 99283

== ENCOUNTER 2024-01-01 15:45 | Emergency (ER) | payer MEDICARE, OTHER, SELFPAY ==
[2024-01-01 15:47] VITALS: BP 150/77; PULSE 80; RESP 18; TEMP 36.6; O2SAT 98; BMI 22.4
--- NOTE | 2024-01-01 16:19 | EXP.UTC ---
Discharge Plan Disposition Patient Disposition: Home, Self-Care Condition: Good Prescriptions Prescriptions: No Action fluticasone propionate 50 mcg/actuation spray,suspension intranasal venlafaxine 37.5 mg tablet 37.5 mg PO BID metformin 500 mg tablet 500 mg PO BID quetiapine [Seroquel] 50 mg tablet 50 mg PO HS Linzess 145 mcg capsule 145 mcg PO DAILY Qty: 30 2RF metoprolol succinate 50 mg tablet extended release 24 hr See Rx Instructions .ROUTE .COMPLEX Qty: 90 3RF Dose Instruction: TAKE ONE TABLET BY MOUTH ONCE A DAY FOR HIGH BLOOD PRESSURE Rx Instructions: TAKE ONE TABLET BY MOUTH ONCE A DAY FOR HIGH BLOOD PRESSURE amlodipine 5 mg tablet 5 mg PO DAILY Qty: 30 2RF clopidogrel [Plavix] 75 mg tablet 75 mg PO DAILY Qty: 90 1RF acetaminophen [Pain Relief ES (acetaminophen)] 500 mg tablet 500 - 1,000 mg PO Q6HP PRN (Reason: Pain) meclizine 12.5 mg tablet 12.5 mg PO DAILYP PRN (Reason: Dizziness Or Vertigo) sennosides-docusate sodium [Stool Softener-Stimulant Laxat] 8.6-50 mg Tablet 1 tab PO DAILY PRN (Reason: Constipation) Qty: 0 0RF diazepam 2 mg tablet 2 mg PO TID PRN (Reason: Anxiety) 30 Days Qty: 90 0RF omeprazole 20 mg capsule,delayed release(DR/EC) 20 mg PO DAILY calcium carbonate-vitamin D3 500 mg-2.5 mcg (100 unit) tablet,chewable 1 tab PO BID cholecalciferol (vitamin D3) 50 mcg (2,000 unit) tablet 2,000 unit PO DAILY atorvastatin 40 mg tablet 40 mg PO DAILY isosorbide mononitrate 30 mg tablet extended release 24 hr 30 mg PO DAILY famotidine 20 mg tablet 20 mg PO DAILY aspirin 81 mg tablet,chewable 81 mg PO DAILY gabapentin 100 mg capsule 200 mg PO HS ondansetron 4 mg tablet,disintegrating 4 mg PO Q8H PRN (Reason: nausea and vomiting) 4 Days Qty: 12 0RF polyethylene glycol 3350 [Miralax] 17 gram/dose powder 17 g PO DAILY Qty: 510 0RF nystatin 100,000 unit/gram ointment 1 applic topical BID Qty: 30 0RF Rx Instructions: apply to area as directed Referrals Follow up/Referrals: Hansel Ruff MD [Primary Care Provider] - See instructions Activity Restrictions/Add. Instructions Additional Instructions/Restrictions: Take a dose of Miralax tonight for better bowel movement. Keep appointmnet with Dr. Mahajan [facility]. Clinical Impressions Clinical Impression: Chronic abdominal pain, Anxiety about health Instructions Patient Instructions: DI for Chronic Pain -- Adult, DI for Constipation Discharge ED Provider: Katalina Duvall [facility] General Stated complaint: abd pain Mode of Arrival: Ambulatory Source of Information: Patient Limitations: No Limitations Time Seen by Provider: 01/01/24 15:55 Description of Symptoms (Recalled from Triage Doc. by RN): ONGOING ABDOMINAL PAIN THAT STARTED THIS AM HEENT Symptoms (Recalled from RN notes): No Resp Symptoms (Recalled from RN notes): No Skin Symptoms (Recalled from RN notes): No MS Symptoms (Recalled from RN notes): No Functional Status (Recalled from RN notes): WNL History of Present Illness Provider Complaint: Pt complains of ongoing abdominal pain. She reports that she has had CT scans of her abdomen and recently saw Dr. Keyshawn VIVAS and was prescribed Linzess. She reports that she has had small BMs since starting the medication. Related Data Home Medications Medication Instructions Recorded Confirmed venlafaxine 37.5 mg tablet 37.5 mg PO BID mood 07/26/17 12/16/23 metformin 500 mg tablet 500 mg PO BID 05/13/18 12/16/23 quetiapine 50 mg tablet (Seroquel) 50 mg PO HS 12/13/18 12/16/23 acetaminophen 500 mg tablet (Pain 500 - 1,000 mg PO Q6HP PRN Pain 09/24/22 12/16/23 Relief Extra Strength (acetaminophen)) meclizine 12.5 mg tablet 12.5 mg PO DAILYP PRN Dizziness Or 02/28/23 12/16/23 Vertigo aspirin 81 mg chewable tablet 81 mg PO DAILY 07/21/23 12/16/23 atorvastatin 40 mg tablet 40 mg PO DAILY 07/21/23 12/16/23 calcium carbonate 500 mg-vitamin 1 tab PO BID 07/21/23 12/16/23 D3 2.5 mcg (100 unit) chewable tablet cholecalciferol (vitamin D3) 50 2,000 unit PO DAILY 07/21/23 12/16/23 mcg (2,000 unit) tablet famotidine 20 mg tablet 20 mg PO DAILY 07/21/23 12/16/23 gabapentin 100 mg capsule 200 mg PO HS 07/21/23 12/16/23 isosorbide mononitrate 30 mg 30 mg PO DAILY 07/21/23 12/16/23 tablet,extended release 24 hr omeprazole 20 mg capsule,delayed 20 mg PO DAILY 07/21/23 12/16/23 release fluticasone propionate 50 intranasal 12/15/23 12/16/23 mcg/actuation nasal spray,suspension Previous Rx's Medication Instructions Recorded diazepam 2 mg tablet 2 mg PO TID PRN Anxiety 30 days 03/03/23 #90 tabs sennosides 8.6 mg-docusate sodium 1 tab PO DAILY PRN Constipation #0 03/03/23 50 mg tablet (Stool tabs Softener-Stimulant Laxative) metoprolol succinate 50 mg See Rx Instructions .Route 10/11/23 tablet,extended release 24 hr .COMPLEX #90 tabs ondansetron 4 mg disintegrating 4 mg PO Q8H PRN nausea and 11/28/23 tablet vomiting 4 days #12 tabs amlodipine 5 mg tablet 5 mg PO DAILY #30 tabs 12/03/23 polyethylene glycol 3350 17 17 g PO DAILY #510 grams 12/04/23 gram/dose oral powder (Miralax) nystatin 100,000 unit/gram topical 1 applic topical BID #30 grams 12/09/23 ointment clopidogrel 75 mg tablet (Plavix) 75 mg PO DAILY #90 tabs 12/10/23 linaclotide 145 mcg capsule 145 mcg PO DAILY constipation #30 12/16/23 (Linzess) caps Allergies Allergy/AdvReac Type Severity Reaction Status Date / Time codeine [CODEINE] Allergy Unknown WEAK Verified 12/16/23 13:56 hydrochlorothiazide Allergy Unknown I-RASH Verified 12/16/23 13:56 [HYDROCHLOROTHIAZIDE] hydrocodone [HYDROCODONE] Allergy Unknown I-RASH Verified 12/16/23 13:56 metoclopramide Allergy Unknown SLURRED Verified 12/16/23 13:56 [METOCLOPRAMIDE] SPEECH, WEAK nifedipine [NIFEDIPINE] Allergy Unknown I-HIVES Verified 12/16/23 13:56 prazosin [PRAZOSIN] Allergy Unknown ITCHING/WEA Verified 12/16/23 13:56 K triamterene [TRIAMTERENE] Allergy Unknown I-RASH Verified 12/16/23 13:56 Worker's Comp Is this a Worker's Comp case?: No [facility] Disclaimer: The information contained in this section may have been updated after the patient was seen, as this information can be updated by other users. Medical History Type 2 diabetes mellitus Anxiety Gastro-esophageal reflux disease without esophagitis Grief reaction Stricture and stenosis of esophagus Esophageal thickening Esophageal thickening Femur fracture, left History of left heart catheterization 4 stents Coronary artery disease Carotid artery stenosis Surgical History History of permanent cardiac pacemaker placement 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 Family History Other Family history of cancer Family history of diabetes mellitus type II Family history of hypertension Family history of myocardial infarction Social History Smoking Status: Never smoker second hand exposure: Yes alcohol intake: never substance use type: denies use current occupational status: retired Travel in the last 8 weeks: None household members: none housing: apartment lives independently: Yes marital status: single education level: middle school service: No correction: No current occupational exposures/hazards: No caffeine: Yes do you feel safe at home: Yes victim of physical abuse: No victim of emotional abuse: No victim of sexual abuse: No would you like helpful sources: No ROS Obtained: Yes All systems reviewed & no additional complaints except as documented Constitutional Constitutional: Reports system reviewed and no additional complaints, except as documented Eyes Eyes: Reports system reviewed and no additional complaints, except as documented ENT Ears, Nose, Mouth, and Throat: Reports system reviewed and no additional complaints, except as documented Cardiovascular Cardiovascular: Reports system reviewed and no additional complaints, except as documented Respiratory Respiratory: Reports system reviewed and no additional complaints, except as documented Gastrointestinal Gastrointestingal: Reports system reviewed and no additional complaints, except as documented and abdominal pain Genitourinary Female Genitourinary: Reports system reviewed and no additional complaints, except as documented Musculoskeletal Musculoskeletal: Reports system reviewed and no additional complaints, except as documented Integumentary/Breasts Skin/Breast: Reports system reviewed and no additional complaints, except as documented Neurologic Neurologic: Reports system reviewed and no additional complaints, except as documented Endocrine Endocrine: Reports system reviewed and no additional complaints, except as documented Hematologic/Lymphatic Henatologic/Lymphatic: Reports system reviewed and no additional complaints, except as documented Allergic/Immunologic Allergic/Immunologic: Reports system reviewed and no additional complaints, except as documented Physical Exam General General appearance: alert and anxious Head Head exam: atraumatic and normocephalic Eye Eye exam: Present normal appearance ENT ENT exam: Present normal exam and normal oropharynx Neck Neck exam: Present normal inspection Chest Chest inspection: Present normal inspection and symmetric chest wall rise Respiratory Respiratory exam: Present normal lung sounds bilaterally Cardiovascular Cardiovascular exam: Present regular rate and normal rhythm Abdominal Exam Abdominal exam: Present soft and normal bowel sounds; Absent tenderness Comment: No tenderness noted on palpitation. Extremities Exam Extremities exam: Present normal inspection Back Exam Back exam: Present normal inspection Neurological Exam Neurological exam: Present alert and oriented X3 Psychiatric Psychiatric exam: Present normal affect, anxious and other (cries off and on and easily upset.) Skin Skin exam: Present warm, dry and intact Lymphatic Lymphatic Findings: no adenopathy Medical Decision Making Chet Inquiry Pt receiving controlled substance: No Chet was queried for this patient: No Vital Signs: 01/01/24 15:47 Temperature 97.9 F Temperature Source Oral Pulse Rate [Radial] 80 Respiratory Rate 18 Blood Pressure [Right Arm] 150/77 H Blood Pressure Mean [Right Arm] 101 Blood Pressure Source [Right Arm] Automatic Cuff Blood Pressure Position [Right Arm] Sitting 02 Sat by Pulse Oximetry 98 Oxygen Delivery Method Room Air
[2024-01-01 16:29] VITALS: BP 150/77; PULSE 80; RESP 18; TEMP 36.6; O2SAT 98
== END 2024-01-01 16:30 | disposition home or self-care (01) ==
PROVIDERS: Emergency Provider Nurse Practitioner Family; PCP Internal Medicine
DX: R10.9 Unspecified abdominal pain (principal); G89.29 Other chronic pain; F45.42 Pain disorder with related psychological factors; R45.89 Other symptoms and signs involving emotional state; R41.89 Other symptoms and signs involving cognitive functions and awareness
CPT/HCPCS: 99212; 99213; G0463

== ENCOUNTER 2024-01-04 13:15 | Emergency (ER) | payer MEDICARE, OTHER, SELFPAY ==
[2024-01-04 13:15] VITALS: BP 136/81; PULSE 72; RESP 16; TEMP 36.6; O2SAT 96; BMI 22.4
--- NOTE | 2024-01-04 13:22 | HMH.EDGENADL ---
Discharge Plan Disposition Patient Disposition: Home, Self-Care Prescriptions Prescriptions: No Action fluticasone propionate 50 mcg/actuation spray,suspension intranasal venlafaxine 37.5 mg tablet 37.5 mg PO BID metformin 500 mg tablet 500 mg PO BID quetiapine [Seroquel] 50 mg tablet 50 mg PO HS Linzess 145 mcg capsule 145 mcg PO DAILY Qty: 30 2RF metoprolol succinate 50 mg tablet extended release 24 hr See Rx Instructions .ROUTE .COMPLEX Qty: 90 3RF Dose Instruction: TAKE ONE TABLET BY MOUTH ONCE A DAY FOR HIGH BLOOD PRESSURE Rx Instructions: TAKE ONE TABLET BY MOUTH ONCE A DAY FOR HIGH BLOOD PRESSURE amlodipine 5 mg tablet 5 mg PO DAILY Qty: 30 2RF clopidogrel [Plavix] 75 mg tablet 75 mg PO DAILY Qty: 90 1RF acetaminophen [Pain Relief ES (acetaminophen)] 500 mg tablet 500 - 1,000 mg PO Q6HP PRN (Reason: Pain) meclizine 12.5 mg tablet 12.5 mg PO DAILYP PRN (Reason: Dizziness Or Vertigo) sennosides-docusate sodium [Stool Softener-Stimulant Laxat] 8.6-50 mg Tablet 1 tab PO DAILY PRN (Reason: Constipation) Qty: 0 0RF diazepam 2 mg tablet 2 mg PO TID PRN (Reason: Anxiety) 30 Days Qty: 90 0RF omeprazole 20 mg capsule,delayed release(DR/EC) 20 mg PO DAILY calcium carbonate-vitamin D3 500 mg-2.5 mcg (100 unit) tablet,chewable 1 tab PO BID cholecalciferol (vitamin D3) 50 mcg (2,000 unit) tablet 2,000 unit PO DAILY atorvastatin 40 mg tablet 40 mg PO DAILY isosorbide mononitrate 30 mg tablet extended release 24 hr 30 mg PO DAILY famotidine 20 mg tablet 20 mg PO DAILY aspirin 81 mg tablet,chewable 81 mg PO DAILY gabapentin 100 mg capsule 200 mg PO HS ondansetron 4 mg tablet,disintegrating 4 mg PO Q8H PRN (Reason: nausea and vomiting) 4 Days Qty: 12 0RF polyethylene glycol 3350 [Miralax] 17 gram/dose powder 17 g PO DAILY Qty: 510 0RF nystatin 100,000 unit/gram ointment 1 applic topical BID Qty: 30 0RF Rx Instructions: apply to area as directed Activity Restrictions/Add. Instructions Additional Instructions/Restrictions: You were evaluated in the ER. You are appropriate for discharge at this time. Continue taking your home medications as previously prescribed. Follow-up with GI as scheduled, make sure you go to this appointment. Return to the ER with new, worsening, or otherwise concerning symptoms. Clinical Impressions Clinical Impression: Abdominal pain, chronic, epigastric Instructions Patient Instructions: DI for Acute Abdominal Pain Discharge ED Provider: Felicita Klein Adult HPI General Chief complaint: Abdominal Pain Stated complaint: abdominal pain Time Seen by Provider: 01/04/24 13:17 Mode of Arrival: EMS Source of Information: Patient and EMS Limitations: No Limitations Description of Symptoms (Recalled from ER Triage Doc. by RN): abdominal pain that comes and goes. History of Present Illness HPI narrative: 73-year-old female well-known to this emergency department presents with her chronic abdominal pain symptoms. Patient states nothing is new, different, or worse today. She states the pain in her upper abdomen comes and goes. She states that the reason she came to the ER. She does not actively have pain. Patient has had extensive evaluations previously with reassuring labs and imaging. Patient states she has no fevers, no vomiting, no diarrhea, she has already eaten and had water today, she has urinated and had a normal bowel movement. She has follow-up scheduled with GI which she was encouraged to keep. She states she is taking all of her medications as prescribed and plans to follow-up with GI. Related Data Home Medications Medication Instructions Recorded Confirmed venlafaxine 37.5 mg tablet 37.5 mg PO BID mood 07/26/17 12/16/23 metformin 500 mg tablet 500 mg PO BID 05/13/18 12/16/23 quetiapine 50 mg tablet (Seroquel) 50 mg PO HS 12/13/18 12/16/23 acetaminophen 500 mg tablet (Pain 500 - 1,000 mg PO Q6HP PRN Pain 09/24/22 12/16/23 Relief Extra Strength (acetaminophen)) meclizine 12.5 mg tablet 12.5 mg PO DAILYP PRN Dizziness Or 02/28/23 12/16/23 Vertigo aspirin 81 mg chewable tablet 81 mg PO DAILY 07/21/23 12/16/23 atorvastatin 40 mg tablet 40 mg PO DAILY 07/21/23 12/16/23 calcium carbonate 500 mg-vitamin 1 tab PO BID 07/21/23 12/16/23 D3 2.5 mcg (100 unit) chewable tablet cholecalciferol (vitamin D3) 50 2,000 unit PO DAILY 07/21/23 12/16/23 mcg (2,000 unit) tablet famotidine 20 mg tablet 20 mg PO DAILY 07/21/23 12/16/23 gabapentin 100 mg capsule 200 mg PO HS 07/21/23 12/16/23 isosorbide mononitrate 30 mg 30 mg PO DAILY 07/21/23 12/16/23 tablet,extended release 24 hr omeprazole 20 mg capsule,delayed 20 mg PO DAILY 07/21/23 12/16/23 release fluticasone propionate 50 intranasal 12/15/23 12/16/23 mcg/actuation nasal spray,suspension Previous Rx's Medication Instructions Recorded diazepam 2 mg tablet 2 mg PO TID PRN Anxiety 30 days 03/03/23 #90 tabs sennosides 8.6 mg-docusate sodium 1 tab PO DAILY PRN Constipation #0 03/03/23 50 mg tablet (Stool tabs Softener-Stimulant Laxative) metoprolol succinate 50 mg See Rx Instructions .Route 10/11/23 tablet,extended release 24 hr .COMPLEX #90 tabs ondansetron 4 mg disintegrating 4 mg PO Q8H PRN nausea and 11/28/23 tablet vomiting 4 days #12 tabs amlodipine 5 mg tablet 5 mg PO DAILY #30 tabs 12/03/23 polyethylene glycol 3350 17 17 g PO DAILY #510 grams 12/04/23 gram/dose oral powder (Miralax) nystatin 100,000 unit/gram topical 1 applic topical BID #30 grams 12/09/23 ointment clopidogrel 75 mg tablet (Plavix) 75 mg PO DAILY #90 tabs 12/10/23 linaclotide 145 mcg capsule 145 mcg PO DAILY constipation #30 12/16/23 (Linzess) caps Allergies Allergy/AdvReac Type Severity Reaction Status Date / Time codeine [CODEINE] Allergy Unknown WEAK Verified 12/16/23 13:56 hydrochlorothiazide Allergy Unknown I-RASH Verified 12/16/23 13:56 [HYDROCHLOROTHIAZIDE] hydrocodone [HYDROCODONE] Allergy Unknown I-RASH Verified 12/16/23 13:56 metoclopramide Allergy Unknown SLURRED Verified 12/16/23 13:56 [METOCLOPRAMIDE] SPEECH, WEAK nifedipine [NIFEDIPINE] Allergy Unknown I-HIVES Verified 12/16/23 13:56 prazosin [PRAZOSIN] Allergy Unknown ITCHING/WEA Verified 12/16/23 13:56 K triamterene [TRIAMTERENE] Allergy Unknown I-RASH Verified 12/16/23 13:56 [facility] Disclaimer: The information contained in this section may have been updated after the patient was seen, as this information can be updated by other users. Medical History Type 2 diabetes mellitus Anxiety Gastro-esophageal reflux disease without esophagitis Grief reaction Stricture and stenosis of esophagus Esophageal thickening Esophageal thickening Femur fracture, left History of left heart catheterization 4 stents Coronary artery disease Carotid artery stenosis Surgical History History of permanent cardiac pacemaker placement 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 Family History Other Family history of cancer Family history of diabetes mellitus type II Family history of hypertension Family history of myocardial infarction Social History Smoking Status: Never smoker second hand exposure: Yes alcohol intake: never substance use type: denies use current occupational status: retired Travel in the last 8 weeks: None household members: none housing: apartment lives independently: Yes marital status: single education level: middle school service: No longterm: No current occupational exposures/hazards: No caffeine: Yes do you feel safe at home: Yes victim of physical abuse: No victim of emotional abuse: No victim of sexual abuse: No would you like helpful sources: No ROS Obtained: Yes All systems reviewed & no additional complaints except as documented Constitutional Constitutional: Denies chills, Denies fever(s) and Denies weakness Eyes Eyes: Denies change in vision ENT Ears, Nose, Mouth, and Throat: Denies dizziness and Denies sore throat Cardiovascular Cardiovascular: Denies chest pain, Denies dyspnea and Denies leg edema Respiratory Respiratory: Denies cough and Denies dyspnea Gastrointestinal Gastrointestingal: Denies abdominal pain (Intermittent, but no abdominal pain currently), constipation, diarrhea, nausea or vomiting Genitourinary Female Genitourinary: Denies dysuria Musculoskeletal Musculoskeletal: Denies arthralgias, Denies numbness and Denies tingling Integumentary/Breasts Skin/Breast: Denies change in pigmentation Neurologic Neurologic: Denies dizziness, Denies numbness, Denies tingling and Denies weakness Physical Exam General General appearance: alert and in no apparent distress Head Head exam: atraumatic and normocephalic Eye Eye exam: Present PERRL and EOMI ENT ENT exam: Present mucous membranes moist Neck Neck exam: Present normal inspection and full ROM Chest Chest inspection: Present symmetric chest wall rise; Absent tenderness Respiratory Respiratory exam: Present normal lung sounds bilaterally; Absent respiratory distress, wheezes or stridor Cardiovascular Cardiovascular exam: Present regular rate and normal rhythm Abdominal Exam Abdominal exam: Present soft; Absent distention, tenderness (Patient reports she usually has upper abdominal pain and tenderness, she does not have active tenderness on my exam, benign abdomen), guarding or rebound Extremities Exam Extremities exam: Present full ROM Neurological Exam Neurological exam: Present alert and oriented X3; Absent motor sensory deficit Psychiatric Psychiatric exam: Present normal affect and normal mood Skin Skin exam: Present warm and dry Medical Decision Making Medical Records Medical records reviewed: Yes I reviewed the patient's medical records. MR Comment: Records are notable for 11 visits to our ER since the beginning of November for the same complaints. Chet Inquiry Pt receiving controlled substance: No Vital Signs: 01/04/24 13:15 Temperature 97.8 F Temperature Source Oral Pulse Rate [Right] 72 Respiratory Rate 16 Blood Pressure [Right Arm] 136/81 Blood Pressure Mean [Right Arm] 99 02 Sat by Pulse Oximetry 96 Oxygen Delivery Method Room Air Medical Decision Narrative: In summary, this 73-year-old female presents to the emergency department today with concerns of intermittent abdominal pain, similar to prior, however she does not have active abdominal pain at this time. On initial evaluation patient is hemodynamically stable, afebrile, resting comfortably, she does not have any active epigastric tenderness or other acute findings on exam. Differential diagnosis includes but is not limited to dysmotility, esophageal spasm, chronic abdominal pain. Patient has extensive history of evaluation in our ER for the same complaints that she has today. Usually she presents when she is in active pain, however today she states she does not have active pain. Her exam is reassuring, she has tolerated oral intake multiple times today and is having normal bowel movements and urination. She does not have fevers, vomiting, nausea, or other acute symptoms. I reviewed her most recent workups from the end of November as well as December. Labs and imaging were reassuring. I do not believe she requires new workup today given her extensive workup previously for similar symptoms. She has follow-up with GI which she was encouraged to keep. She is appropriate for discharge at this time. Patient was given instructions on symptomatic management, instructions to continue taking her home medications, follow up instructions, and return precautions for the emergency department. Patient indicated understanding and was discharged in stable condition. Critical Care Critical Care Time Critical Care Time: No
[2024-01-04 13:32] VITALS: BP 133/74; PULSE 74; RESP 18; TEMP 36.5; O2SAT 95
== END 2024-01-04 13:33 | disposition home or self-care (01) ==
PROVIDERS: Emergency Provider Emergency Medicine; PCP Internal Medicine
DX: R10.13 Epigastric pain (principal); G89.29 Other chronic pain; F45.42 Pain disorder with related psychological factors; R41.89 Other symptoms and signs involving cognitive functions and awareness; E11.9 Type 2 diabetes mellitus without complications; K21.9 Gastro-esophageal reflux disease without esophagitis; I65.29 Occlusion and stenosis of unspecified carotid artery; I11.9 Hypertensive heart disease without heart failure; I25.10 Atherosclerotic heart disease of native coronary artery without angina pectoris; Z95.1 Presence of aortocoronary bypass graft; Z95.0 Presence of cardiac pacemaker; Z79.84 Long term (current) use of oral hypoglycemic drugs
CPT/HCPCS: 99283

== ENCOUNTER 2024-01-07 12:57 | Emergency (ER) | payer MEDICARE, OTHER, SELFPAY ==
[2024-01-07 12:57] VITALS: BP 146/72; PULSE 73; RESP 13; TEMP 36.8; O2SAT 97; BMI 20.7
--- NOTE | 2024-01-07 13:06 | PC.NURSE ---
DR GUZMÁN AT BEDSIDE
--- NOTE | 2024-01-07 13:07 | [facility].EDGENADL ---
Discharge Plan Disposition Patient Disposition: Home, Self-Care Condition: Good Prescriptions Prescriptions: No Action fluticasone propionate 50 mcg/actuation spray,suspension intranasal venlafaxine 37.5 mg tablet 37.5 mg PO BID metformin 500 mg tablet 500 mg PO BID quetiapine [Seroquel] 50 mg tablet 50 mg PO HS Linzess 145 mcg capsule 145 mcg PO DAILY Qty: 30 2RF metoprolol succinate 50 mg tablet extended release 24 hr See Rx Instructions .ROUTE .COMPLEX Qty: 90 3RF Dose Instruction: TAKE ONE TABLET BY MOUTH ONCE A DAY FOR HIGH BLOOD PRESSURE Rx Instructions: TAKE ONE TABLET BY MOUTH ONCE A DAY FOR HIGH BLOOD PRESSURE amlodipine 5 mg tablet 5 mg PO DAILY Qty: 30 2RF clopidogrel [Plavix] 75 mg tablet 75 mg PO DAILY Qty: 90 1RF polyethylene glycol 3350 17 gram/dose powder 17 g PO DAILY 4 Days Qty: 68 3RF acetaminophen [Pain Relief ES (acetaminophen)] 500 mg tablet 500 - 1,000 mg PO Q6HP PRN (Reason: Pain) meclizine 12.5 mg tablet 12.5 mg PO DAILYP PRN (Reason: Dizziness Or Vertigo) sennosides-docusate sodium [Stool Softener-Stimulant Laxat] 8.6-50 mg Tablet 1 tab PO DAILY PRN (Reason: Constipation) Qty: 0 0RF diazepam 2 mg tablet 2 mg PO TID PRN (Reason: Anxiety) 30 Days Qty: 90 0RF omeprazole 20 mg capsule,delayed release(DR/EC) 20 mg PO DAILY calcium carbonate-vitamin D3 500 mg-2.5 mcg (100 unit) tablet,chewable 1 tab PO BID cholecalciferol (vitamin D3) 50 mcg (2,000 unit) tablet 2,000 unit PO DAILY atorvastatin 40 mg tablet 40 mg PO DAILY isosorbide mononitrate 30 mg tablet extended release 24 hr 30 mg PO DAILY famotidine 20 mg tablet 20 mg PO DAILY aspirin 81 mg tablet,chewable 81 mg PO DAILY gabapentin 100 mg capsule 200 mg PO HS ondansetron 4 mg tablet,disintegrating 4 mg PO Q8H PRN (Reason: nausea and vomiting) 4 Days Qty: 12 0RF polyethylene glycol 3350 [Miralax] 17 gram/dose powder 17 g PO DAILY Qty: 510 0RF nystatin 100,000 unit/gram ointment 1 applic topical BID Qty: 30 0RF Rx Instructions: apply to area as directed Referrals Follow up/Referrals: Provider,Referral, MD [Referring] - See instructions Activity Restrictions/Add. Instructions Additional Instructions/Restrictions: You were evaluated in the emergency department today for your chronic abdominal pain. Continue taking your medications at home as prescribed. 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 Return for new or worsening symptoms. Clinical Impressions Clinical Impression: Chronic abdominal pain Instructions Patient Instructions: DI for Acute Abdominal Pain Discharge ED Provider: Glenys Hassan General Adult HPI General Chief complaint: Abdominal Pain Stated complaint: abd pain Time Seen by Provider: 01/07/24 12:59 Mode of Arrival: EMS Source of Information: Patient and EMS Limitations: No Limitations Description of Symptoms (Recalled from ER Triage Doc. by RN): pt reports abdominal pain that began this afternoon after eating lunch. History of Present Illness HPI narrative: This patient is a 73-year-old female with chronic abdominal pain who is well-known to the emergency department presenting for recurrence of her chronic abdominal pain. She notes that it got worse after eating today. This is unchanged from prior evaluations. No new symptoms. She has been seen in the ED multiple times a week over the last several months for similar symptoms with multiple incidences of abdominal imaging showing no acute pathology on medical record review. She also is seeing gastroenterology and general surgery for chronic abdominal pain and reports she is taking her medications that they gave her as prescribed with only intermittent improvement. She comes in by EMS who noted that she was stable en route and at her baseline. Related Data Home Medications Medication Instructions Recorded Confirmed venlafaxine 37.5 mg tablet 37.5 mg PO BID mood 07/26/17 01/06/24 metformin 500 mg tablet 500 mg PO BID 05/13/18 01/06/24 quetiapine 50 mg tablet (Seroquel) 50 mg PO HS 12/13/18 01/06/24 acetaminophen 500 mg tablet (Pain 500 - 1,000 mg PO Q6HP PRN Pain 09/24/22 01/06/24 Relief Extra Strength (acetaminophen)) meclizine 12.5 mg tablet 12.5 mg PO DAILYP PRN Dizziness Or 02/28/23 01/06/24 Vertigo aspirin 81 mg chewable tablet 81 mg PO DAILY 07/21/23 01/06/24 atorvastatin 40 mg tablet 40 mg PO DAILY 07/21/23 01/06/24 calcium carbonate 500 mg-vitamin 1 tab PO BID 07/21/23 01/06/24 D3 2.5 mcg (100 unit) chewable tablet cholecalciferol (vitamin D3) 50 2,000 unit PO DAILY 07/21/23 01/06/24 mcg (2,000 unit) tablet famotidine 20 mg tablet 20 mg PO DAILY 07/21/23 01/06/24 gabapentin 100 mg capsule 200 mg PO HS 07/21/23 01/06/24 isosorbide mononitrate 30 mg 30 mg PO DAILY 07/21/23 01/06/24 tablet,extended release 24 hr omeprazole 20 mg capsule,delayed 20 mg PO DAILY 07/21/23 01/06/24 release fluticasone propionate 50 intranasal 12/15/23 01/06/24 mcg/actuation nasal spray,suspension Previous Rx's Medication Instructions Recorded diazepam 2 mg tablet 2 mg PO TID PRN Anxiety 30 days 03/03/23 #90 tabs sennosides 8.6 mg-docusate sodium 1 tab PO DAILY PRN Constipation #0 03/03/23 50 mg tablet (Stool tabs Softener-Stimulant Laxative) metoprolol succinate 50 mg See Rx Instructions .Route 10/11/23 tablet,extended release 24 hr .COMPLEX #90 tabs ondansetron 4 mg disintegrating 4 mg PO Q8H PRN nausea and 11/28/23 tablet vomiting 4 days #12 tabs amlodipine 5 mg tablet 5 mg PO DAILY #30 tabs 12/03/23 polyethylene glycol 3350 17 17 g PO DAILY #510 grams 12/04/23 gram/dose oral powder (Miralax) nystatin 100,000 unit/gram topical 1 applic topical BID #30 grams 12/09/23 ointment clopidogrel 75 mg tablet (Plavix) 75 mg PO DAILY #90 tabs 12/10/23 linaclotide 145 mcg capsule 145 mcg PO DAILY constipation #30 12/16/23 (Linzess) caps polyethylene glycol 3350 17 17 g PO DAILY 4 days #68 grams 01/06/24 gram/dose oral powder Allergies Allergy/AdvReac Type Severity Reaction Status Date / Time codeine [CODEINE] Allergy Unknown WEAK Verified 01/06/24 14:32 hydrochlorothiazide Allergy Unknown I-RASH Verified 01/06/24 14:32 [HYDROCHLOROTHIAZIDE] hydrocodone [HYDROCODONE] Allergy Unknown I-RASH Verified 01/06/24 14:32 metoclopramide Allergy Unknown SLURRED Verified 01/06/24 14:32 [METOCLOPRAMIDE] SPEECH, WEAK nifedipine [NIFEDIPINE] Allergy Unknown I-HIVES Verified 01/06/24 14:32 prazosin [PRAZOSIN] Allergy Unknown ITCHING/WEA Verified 01/06/24 14:32 K triamterene [TRIAMTERENE] Allergy Unknown I-RASH Verified 01/06/24 14:32 PFSH [facility] [place] Disclaimer: The information contained in this section may have been updated after the patient was seen, as this information can be updated by other users. Medical History Type 2 diabetes mellitus Anxiety Gastro-esophageal reflux disease without esophagitis Grief reaction Stricture and stenosis of esophagus Esophageal thickening Esophageal thickening Femur fracture, left History of left heart catheterization Coronary artery disease Carotid artery stenosis Surgical History History of permanent cardiac pacemaker placement S/P CABG x 1 Status post aortic valve replacement with bioprosthetic valve Family History Other Family history of cancer Family history of diabetes mellitus type II Family history of hypertension Family history of myocardial infarction Social History Smoking Status: Never smoker second hand exposure: Yes alcohol intake: never substance use type: denies use current occupational status: retired Travel in the last 8 weeks: None household members: none housing: apartment lives independently: Yes marital status: single education level: middle school service: No custodial: No current occupational exposures/hazards: No caffeine: Yes do you feel safe at home: Yes victim of physical abuse: No victim of emotional abuse: No victim of sexual abuse: No would you like helpful sources: No ROS Obtained: Yes All systems reviewed & no additional complaints except as documented Physical Exam General General appearance: alert and in no apparent distress Head Head exam: atraumatic and normocephalic Eye Eye exam: Present normal appearance, PERRL and EOMI ENT ENT exam: Present normal exam, normal oropharynx, mucous membranes moist and normal external ear exam Neck Neck exam: Present normal inspection, full ROM and trachea midline; Absent tenderness Chest Chest inspection: Present normal inspection and symmetric chest wall rise; Absent tenderness Respiratory Respiratory exam: Present normal lung sounds bilaterally; Absent respiratory distress, wheezes, stridor or accessory muscle use Cardiovascular Cardiovascular exam: Present regular rate and normal rhythm Abdominal Exam Abdominal exam: Present soft; Absent distention, tenderness or guarding Extremities Exam Extremities exam: Present normal inspection, full ROM and normal capillary refill; Absent tenderness or edema Back Exam Back exam: Present normal inspection and full ROM; Absent tenderness Neurological Exam Neurological exam: Present alert, oriented X3, CN II-XII intact and normal gait; Absent motor sensory deficit Psychiatric Psychiatric exam: Present normal affect and normal mood Skin Skin exam: Present warm and dry Medical Decision Making Medical Records Medical records reviewed: Yes I reviewed the patient's medical records. Chet Inquiry Pt receiving controlled substance: No Vital Signs: 01/07/24 12:57 01/07/24 13:48 Temperature 98.2 F 98.2 F Temperature Source Oral Oral Pulse Rate 82 Pulse Rate [Left Radial] 73 Respiratory Rate 13 18 Blood Pressure 132/71 Blood Pressure [Right Arm] 146/72 H Blood Pressure Mean [Right Arm] 96 02 Sat by Pulse Oximetry 97 Oxygen Delivery Method Room Air Room Air Lab Data Lab results reviewed: Yes I reviewed the patient's lab results. Orders (Tests/Meds): ED MEDICATIONS Discontinued Medications Generic Name Dose Route Start Last Admin Trade Name Freq PRN Reason Stop Dose Admin Acetaminophen 1,000 mg 01/07/24 13:08 01/07/24 13:18 Acetaminophen 500mg Tab PO 01/07/24 13:09 1,000 mg ONCE ONE Administration Belladonna Alkaloids 60 ml 01/07/24 13:08 01/07/24 13:18 Belladonna Alkaloids 60 Ml Ml PO 01/07/24 13:09 60 ml ONCE ONE Administration ORDERS Category Date Time Status POCUS Point of Care (ER Only) Stat Exams 01/07/24 13:36 Completed Medical Decision Narrative: In summary, this patient is a 73-year-old male presenting to the Emergency Department for evaluation of recurrence of chronic abdominal pain. Differential diagnoses considered include but are not limited to gastritis, gastroenteritis, colitis, constipation, functional abdominal pain. Ruling out the most morbid conditions drove assessment. It should be noted patient's history includes chronic abdominal pain which is not at goal therapy. This complicates all aspects of care by increasing patient's risk for morbidity. I reviewed patient's past medical records and noted multiple previous evaluations, including visits 3 days ago, 8 days ago, 9 days ago for similar symptoms. On exam, the patient is very well-appearing. She is at her baseline with benign abdominal exam and reassuring vital signs. 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 Previous labs and imaging have not demonstrated acute surgical pathology that would require admission when the patient has had the same symptoms. I did a bedside ultrasound of her abdomen to evaluate for potential cholecystitis or renal pathology. Renal ultrasound as well as gallbladder ultrasound were reassuring. Please see ultrasound notes for further documentation. She was given a GI cocktail and oral Tylenol for symptomatic improvement, and she was deemed to be appropriate for discharge home given that she does not have any new features. Strict return precautions were given as well as instructions for close patient follow-up. Procedures Limited Ultrasound Views:: Limited renal ultrasound Indication: A focused ultrasound of the kidneys was performed to evaluate for hydronephrosis and nephrolithiasis. The ultrasound was performed with the following indications, as noted in the H&P: Abdominal pain Identified structures: Both kidneys Findings: Bilateral kidneys Normal without hydronephrosis Impression: Normal limited renal ultrasound with no evidence of hydronephrosis or calculi Images were saved to permanent archive The study was technically adequate CPT: 36640-57 This study was performed by nm, and I personally interpreted all images/videos. Based on my clinical judgement, these images were adequate and did not necessitate further imaging. Findings:: Limited RUQ ultrasound Indication: Abdominal pain Identified structures: -Gallbladder -Gallbladder wall -Liver Findings: Sonographic Donis sign: Absent Gallstones: Absent Sludge: Absent Pericholecystic fluid: Absent Maximal GB wall thickness (mm): Normal Gallbladder width (cm): Normal Gallbladder length (cm): Normal Impression: Normal gallbladder Images were saved to permanent archive The study was technically adequate CPT 46181-09 This study was performed by nm, and I personally interpreted all images/videos. Based on my clinical judgement, these images were adequate and did not necessitate further imaging. Critical Care Critical Care Time Critical Care Time: No
[2024-01-07] MEDS: ACETAMINOPHEN 500MG TAB 1000 MG PO (13:18)
[2024-01-07] MEDS: BELLADONNA ALKALOIDS 60 ML ML PO (13:18)
[2024-01-07 13:48] VITALS: BP 132/71; PULSE 82; RESP 18; TEMP 36.8; O2SAT 98
== END 2024-01-07 13:50 | disposition home or self-care (01) ==
PROVIDERS: Emergency Provider Emergency Medicine; PCP Internal Medicine
DX: R10.13 Epigastric pain (principal); G89.29 Other chronic pain; F45.42 Pain disorder with related psychological factors; R41.89 Other symptoms and signs involving cognitive functions and awareness; E11.9 Type 2 diabetes mellitus without complications; K21.9 Gastro-esophageal reflux disease without esophagitis; I11.9 Hypertensive heart disease without heart failure; I25.10 Atherosclerotic heart disease of native coronary artery without angina pectoris; Z95.1 Presence of aortocoronary bypass graft; Z95.0 Presence of cardiac pacemaker; Z79.84 Long term (current) use of oral hypoglycemic drugs
CPT/HCPCS: 99284

== ENCOUNTER 2024-01-08 10:31 | Emergency (ER) | payer MEDICARE, OTHER, SELFPAY ==
[2024-01-08 10:31] VITALS: BP 136/71; PULSE 60; RESP 16; TEMP 36.7; O2SAT 97; BMI 22.4
[2024-01-08 10:49] LABS: Microscopic, Urine URINE MICROSCOPIC (MICROSCOPIC)
[2024-01-08 10:54] LABS: Appearance,Urine CLEAR (Clear); Bilirubin,Urine Negative (Negative); Blood, Urine Negative (Negative); Color,Urine YELLOW (Yellow); Glucose,Urine (UA) Negative (Negative); Ketones,Urine Negative (Negative); Leukocyte Esterase,Urine TRACE (Negative); Nitrate,Urine Negative (Negative); PH,Urine 6.5 (5.0-8.5); Protein,Urine Negative (Negative); Specific Gravity, Urine <= 1.005 (1.005-1.030); Urobilinogen,Urine 0.2 EU/dl (0.2)
--- NOTE | 2024-01-08 11:04 | HMH.EDGENADL ---
Discharge Plan Disposition Patient Disposition: Home, Self-Care Condition: Good Prescriptions Prescriptions: No Action fluticasone propionate 50 mcg/actuation spray,suspension intranasal venlafaxine 37.5 mg tablet 37.5 mg PO BID metformin 500 mg tablet 500 mg PO BID quetiapine [Seroquel] 50 mg tablet 50 mg PO HS Linzess 145 mcg capsule 145 mcg PO DAILY Qty: 30 2RF metoprolol succinate 50 mg tablet extended release 24 hr See Rx Instructions .ROUTE .COMPLEX Qty: 90 3RF Dose Instruction: TAKE ONE TABLET BY MOUTH ONCE A DAY FOR HIGH BLOOD PRESSURE Rx Instructions: TAKE ONE TABLET BY MOUTH ONCE A DAY FOR HIGH BLOOD PRESSURE amlodipine 5 mg tablet 5 mg PO DAILY Qty: 30 2RF clopidogrel [Plavix] 75 mg tablet 75 mg PO DAILY Qty: 90 1RF polyethylene glycol 3350 17 gram/dose powder 17 g PO DAILY 4 Days Qty: 68 3RF acetaminophen [Pain Relief ES (acetaminophen)] 500 mg tablet 500 - 1,000 mg PO Q6HP PRN (Reason: Pain) meclizine 12.5 mg tablet 12.5 mg PO DAILYP PRN (Reason: Dizziness Or Vertigo) sennosides-docusate sodium [Stool Softener-Stimulant Laxat] 8.6-50 mg Tablet 1 tab PO DAILY PRN (Reason: Constipation) Qty: 0 0RF diazepam 2 mg tablet 2 mg PO TID PRN (Reason: Anxiety) 30 Days Qty: 90 0RF omeprazole 20 mg capsule,delayed release(DR/EC) 20 mg PO DAILY calcium carbonate-vitamin D3 500 mg-2.5 mcg (100 unit) tablet,chewable 1 tab PO BID cholecalciferol (vitamin D3) 50 mcg (2,000 unit) tablet 2,000 unit PO DAILY atorvastatin 40 mg tablet 40 mg PO DAILY isosorbide mononitrate 30 mg tablet extended release 24 hr 30 mg PO DAILY famotidine 20 mg tablet 20 mg PO DAILY aspirin 81 mg tablet,chewable 81 mg PO DAILY gabapentin 100 mg capsule 200 mg PO HS ondansetron 4 mg tablet,disintegrating 4 mg PO Q8H PRN (Reason: nausea and vomiting) 4 Days Qty: 12 0RF polyethylene glycol 3350 [Miralax] 17 gram/dose powder 17 g PO DAILY Qty: 510 0RF nystatin 100,000 unit/gram ointment 1 applic topical BID Qty: 30 0RF Rx Instructions: apply to area as directed Referrals Follow up/Referrals: Hansel Ruff MD [Primary Care Provider] - See instructions Activity Restrictions/Add. Instructions Additional Instructions/Restrictions: You were evaluated in the emergency department today. Please follow-up closely with your primary care provider and interactive marketing strategist as scheduled. Clinical Impressions Clinical Impression: Chronic abdominal pain Instructions Patient Instructions: DI for Acute Abdominal Pain, DI for Chronic Pain -- Adult Discharge ED Provider: Glenys Hassan General Adult HPI General Chief complaint: Abdominal Pain Stated complaint: abdominal pain Time Seen by Provider: 01/08/24 10:34 History of Present Illness HPI narrative: This patient is a 73-year-old female with a history of chronic abdominal pain presenting to the emergency department for reevaluation of her continued symptoms. No new features noted. Her pain is intermittent and seems to be worse whenever she eats and before she has a bowel movement. She states it is currently better and resolved, but it was hurting earlier. She advises that she wants to be admitted for biopsy because she was told that she had masses. I evaluated her yesterday less than 24 hours ago and performed an ultrasound and did not note any masses. I also reviewed prior imaging including numerous CT scans, which did not demonstrate any prior masses according to radiology reads. She follows closely with gastroenterology as well as general surgery. She has had numerous visits to them, behavioral health, and also in the ED with reassuring workups each time. Related Data Home Medications Medication Instructions Recorded Confirmed venlafaxine 37.5 mg tablet 37.5 mg PO BID mood 07/26/17 01/06/24 metformin 500 mg tablet 500 mg PO BID 05/13/18 01/06/24 quetiapine 50 mg tablet (Seroquel) 50 mg PO HS 12/13/18 01/06/24 acetaminophen 500 mg tablet (Pain 500 - 1,000 mg PO Q6HP PRN Pain 09/24/22 01/06/24 Relief Extra Strength (acetaminophen)) meclizine 12.5 mg tablet 12.5 mg PO DAILYP PRN Dizziness Or 02/28/23 01/06/24 Vertigo aspirin 81 mg chewable tablet 81 mg PO DAILY 07/21/23 01/06/24 atorvastatin 40 mg tablet 40 mg PO DAILY 07/21/23 01/06/24 calcium carbonate 500 mg-vitamin 1 tab PO BID 07/21/23 01/06/24 D3 2.5 mcg (100 unit) chewable tablet cholecalciferol (vitamin D3) 50 2,000 unit PO DAILY 07/21/23 01/06/24 mcg (2,000 unit) tablet famotidine 20 mg tablet 20 mg PO DAILY 07/21/23 01/06/24 gabapentin 100 mg capsule 200 mg PO HS 07/21/23 01/06/24 isosorbide mononitrate 30 mg 30 mg PO DAILY 07/21/23 01/06/24 tablet,extended release 24 hr omeprazole 20 mg capsule,delayed 20 mg PO DAILY 07/21/23 01/06/24 release fluticasone propionate 50 intranasal 12/15/23 01/06/24 mcg/actuation nasal spray,suspension Previous Rx's Medication Instructions Recorded diazepam 2 mg tablet 2 mg PO TID PRN Anxiety 30 days 03/03/23 #90 tabs sennosides 8.6 mg-docusate sodium 1 tab PO DAILY PRN Constipation #0 03/03/23 50 mg tablet (Stool tabs Softener-Stimulant Laxative) metoprolol succinate 50 mg See Rx Instructions .Route 10/11/23 tablet,extended release 24 hr .COMPLEX #90 tabs ondansetron 4 mg disintegrating 4 mg PO Q8H PRN nausea and 11/28/23 tablet vomiting 4 days #12 tabs amlodipine 5 mg tablet 5 mg PO DAILY #30 tabs 12/03/23 polyethylene glycol 3350 17 17 g PO DAILY #510 grams 12/04/23 gram/dose oral powder (Miralax) nystatin 100,000 unit/gram topical 1 applic topical BID #30 grams 12/09/23 ointment clopidogrel 75 mg tablet (Plavix) 75 mg PO DAILY #90 tabs 12/10/23 linaclotide 145 mcg capsule 145 mcg PO DAILY constipation #30 12/16/23 (Linzess) caps polyethylene glycol 3350 17 17 g PO DAILY 4 days #68 grams 01/06/24 gram/dose oral powder Allergies Allergy/AdvReac Type Severity Reaction Status Date / Time codeine [CODEINE] Allergy Unknown WEAK Verified 01/06/24 14:32 hydrochlorothiazide Allergy Unknown I-RASH Verified 01/06/24 14:32 [HYDROCHLOROTHIAZIDE] hydrocodone [HYDROCODONE] Allergy Unknown I-RASH Verified 01/06/24 14:32 metoclopramide Allergy Unknown SLURRED Verified 01/06/24 14:32 [METOCLOPRAMIDE] SPEECH, WEAK nifedipine [NIFEDIPINE] Allergy Unknown I-HIVES Verified 01/06/24 14:32 prazosin [PRAZOSIN] Allergy Unknown ITCHING/WEA Verified 01/06/24 14:32 K triamterene [TRIAMTERENE] Allergy Unknown I-RASH Verified 01/06/24 14:32 [facility] Disclaimer: The information contained in this section may have been updated after the patient was seen, as this information can be updated by other users. Medical History Type 2 diabetes mellitus Anxiety Gastro-esophageal reflux disease without esophagitis Grief reaction Stricture and stenosis of esophagus Esophageal thickening Esophageal thickening Femur fracture, left History of left heart catheterization Coronary artery disease Carotid artery stenosis Surgical History History of permanent cardiac pacemaker placement S/P CABG x 1 Status post aortic valve replacement with bioprosthetic valve Family History Other Family history of cancer Family history of diabetes mellitus type II Family history of hypertension Family history of myocardial infarction Social History Smoking Status: Never smoker second hand exposure: Yes alcohol intake: never substance use type: denies use current occupational status: retired Travel in the last 8 weeks: None household members: none housing: apartment lives independently: Yes marital status: single education level: middle school service: No residential: No current occupational exposures/hazards: No caffeine: Yes do you feel safe at home: Yes victim of physical abuse: No victim of emotional abuse: No victim of sexual abuse: No would you like helpful sources: No ROS Obtained: Yes All systems reviewed & no additional complaints except as documented Physical Exam General General appearance: alert and in no apparent distress Head Head exam: atraumatic and normocephalic Eye Eye exam: Present normal appearance, PERRL and EOMI ENT ENT exam: Present normal exam, normal oropharynx, mucous membranes moist and normal external ear exam Neck Neck exam: Present normal inspection, full ROM and trachea midline; Absent tenderness Chest Chest inspection: Present normal inspection and symmetric chest wall rise; Absent tenderness Respiratory Respiratory exam: Present normal lung sounds bilaterally; Absent respiratory distress, wheezes, stridor or accessory muscle use Cardiovascular Cardiovascular exam: Present regular rate and normal rhythm Abdominal Exam Abdominal exam: Present soft; Absent distention, tenderness or guarding Extremities Exam Extremities exam: Present normal inspection, full ROM and normal capillary refill; Absent tenderness or edema Back Exam Back exam: Present normal inspection and full ROM; Absent tenderness Neurological Exam Neurological exam: Present alert, oriented X3, CN II-XII intact and normal gait; Absent motor sensory deficit Psychiatric Psychiatric exam: Present normal affect and normal mood Skin Skin exam: Present warm and dry Medical Decision Making Medical Records Medical records reviewed: Yes I reviewed the patient's medical records. Chet Inquiry Pt receiving controlled substance: No Vital Signs: 01/08/24 10:31 Temperature 98.0 F Temperature Source Oral Pulse Rate [Right] 60 Respiratory Rate 16 Blood Pressure [Left Arm] 136/71 Blood Pressure Mean [Left Arm] 92 Blood Pressure Source [Left Arm] Automatic Cuff 02 Sat by Pulse Oximetry 97 Oxygen Delivery Method Room Air Lab Data Lab results reviewed: Yes I reviewed the patient's lab results. Lab Results 01/08/24 10:45: Urine Color Yellow, Urine Appearance Clear, Urine pH 6.5, Ur Specific [place] <= 1.005, Urine Protein Negative, Urine Glucose (UA) Negative, Urine Ketones Negative, Urine Blood Negative, Urine Nitrate Negative, Urine Bilirubin Negative, Urine Urobilinogen 0.2, Ur Leukocyte Esterase Trace, Urine RBC None, Urine WBC Occasional, Ur Squamous Epith Cells None, Urine Bacteria Trace Orders (Tests/Meds): ORDERS Category Date Time Status UA [Urinalysis and Microscopic] Stat Lab 01/08/24 10:45 Completed Medical Decision Narrative: In summary, this patient is a 73-year-old male presenting to the Emergency Department for evaluation of recurrence of chronic abdominal pain without new features. Differential diagnoses considered include but are not limited to gastritis, gastroenteritis, colitis, constipation, functional abdominal pain. Ruling out the most morbid conditions drove assessment. It should be noted patient's history includes chronic abdominal pain which is not at goal therapy. This complicates all aspects of care by increasing patient's risk for morbidity. I reviewed patient's past medical records and noted multiple previous evaluations, including visits yesterday by myself, 3 days ago, 8 days ago, 9 days ago for similar symptoms. On exam, the patient is very well-appearing. She is at her baseline with benign abdominal exam and reassuring vital signs. She also is not currently having pain at this time. At this time based on the fact that this is unchanged from patient's chronic abdominal pain, I considered obtaining labs and imaging but I do not feel that this is indicated as it would likely not change management facilitator. Urinalysis is not concerning for infection or other acute pathology at this time. It is slightly contaminated with squamous cells. Given that patient is at her baseline with no new features, she is deemed to be appropriate for discharge home with continued outpatient follow-up for management of her chronic and recurrent abdominal pain. Strict return precautions were given as well as instructions for close patient follow-up. Critical Care Critical Care Time Critical Care Time: No
[2024-01-08 11:09] LABS: Bacteria,Urine Trace /lpf; WBC,Urine Occasional #/hpf (0-3)
[2024-01-08 11:40] VITALS: BP 114/72; PULSE 58; RESP 17; TEMP 36.7; O2SAT 99
== END 2024-01-08 11:41 | disposition home or self-care (01) ==
PROVIDERS: Emergency Provider Emergency Medicine; PCP Internal Medicine
DX: R10.13 Epigastric pain (principal); G89.29 Other chronic pain; F45.42 Pain disorder with related psychological factors; R41.89 Other symptoms and signs involving cognitive functions and awareness; E11.9 Type 2 diabetes mellitus without complications; K21.9 Gastro-esophageal reflux disease without esophagitis; I65.29 Occlusion and stenosis of unspecified carotid artery; I11.9 Hypertensive heart disease without heart failure; I25.10 Atherosclerotic heart disease of native coronary artery without angina pectoris; Z95.1 Presence of aortocoronary bypass graft; Z95.0 Presence of cardiac pacemaker; Z79.84 Long term (current) use of oral hypoglycemic drugs
CPT/HCPCS: 81001; 99283

== ENCOUNTER 2024-01-15 11:15 | Emergency (ER) | payer MEDICARE, OTHER, SELFPAY ==
--- NOTE | 2024-01-15 11:31 | EXP.UTC ---
Discharge Plan Disposition Patient Disposition: Home, Self-Care Condition: Good Prescriptions Prescriptions: New ondansetron 4 mg Tablet,Disintegrating 4 mg PO Q8H PRN (Reason: Nausea) Qty: 12 0RF No Action fluticasone propionate 50 mcg/actuation spray,suspension intranasal venlafaxine 37.5 mg tablet 37.5 mg PO BID metformin 500 mg tablet 500 mg PO BID quetiapine [Seroquel] 50 mg tablet 50 mg PO HS Linzess 145 mcg capsule 145 mcg PO DAILY Qty: 30 2RF metoprolol succinate 50 mg tablet extended release 24 hr See Rx Instructions .ROUTE .COMPLEX Qty: 90 3RF Dose Instruction: TAKE ONE TABLET BY MOUTH ONCE A DAY FOR HIGH BLOOD PRESSURE Rx Instructions: TAKE ONE TABLET BY MOUTH ONCE A DAY FOR HIGH BLOOD PRESSURE amlodipine 5 mg tablet 5 mg PO DAILY Qty: 30 2RF clopidogrel [Plavix] 75 mg tablet 75 mg PO DAILY Qty: 90 1RF gabapentin 100 mg capsule 200 mg PO HS Qty: 60 2RF acetaminophen [Pain Relief ES (acetaminophen)] 500 mg tablet 500 - 1,000 mg PO Q6HP PRN (Reason: Pain) sennosides-docusate sodium [Stool Softener-Stimulant Laxat] 8.6-50 mg Tablet 1 tab PO DAILY PRN (Reason: Constipation) Qty: 0 0RF diazepam 2 mg tablet 2 mg PO TID PRN (Reason: Anxiety) 30 Days Qty: 90 0RF omeprazole 20 mg capsule,delayed release(DR/EC) 20 mg PO DAILY calcium carbonate-vitamin D3 500 mg-2.5 mcg (100 unit) tablet,chewable 1 tab PO BID cholecalciferol (vitamin D3) 50 mcg (2,000 unit) tablet 2,000 unit PO DAILY atorvastatin 40 mg tablet 40 mg PO DAILY isosorbide mononitrate 30 mg tablet extended release 24 hr 30 mg PO DAILY famotidine 20 mg tablet 20 mg PO DAILY aspirin 81 mg tablet,chewable 81 mg PO DAILY ondansetron 4 mg tablet,disintegrating 4 mg PO Q8H PRN (Reason: nausea and vomiting) 4 Days Qty: 12 0RF nystatin 100,000 unit/gram ointment 1 applic topical BID Qty: 30 0RF Rx Instructions: apply to area as directed alendronate 70 mg tablet 70 mg PO WEEKLY Referrals Follow up/Referrals: Hansel Ruff MD [Primary Care Provider] - See instructions Activity Restrictions/Add. Instructions Additional Instructions/Restrictions: Drink plenty of fluids. Take tylenol for pain or fever. Take the medications as directed. Follow up with your regular doctor. GO TO THE ER FOR ANY WORSENING SYMPTOMS Follow up with the metallography teacher and your primary care physician as discussed. Clinical Impressions Clinical Impression: Abdominal pain Instructions Patient Instructions: DI for Acute Abdominal Pain, Ondansetron Discharge ED Provider: Trevor Mccray [facility] General Stated complaint: abd pain Time Seen by Provider: 01/15/24 11:31 History of Present Illness Provider Complaint: She states that she has had chronic abdominal discomfort for the past several months. She describes it as pain and tenderness of her epigastric area. She denies that her symptoms are worse than normal. She denies any fever/chills. She states that she has felt hungry today and she has eaten. She denies chest pain. Related Data Home Medications Medication Instructions Recorded Confirmed venlafaxine 37.5 mg tablet 37.5 mg PO BID mood 07/26/17 01/15/24 metformin 500 mg tablet 500 mg PO BID 05/13/18 01/15/24 quetiapine 50 mg tablet (Seroquel) 50 mg PO HS 12/13/18 01/15/24 acetaminophen 500 mg tablet (Pain 500 - 1,000 mg PO Q6HP PRN Pain 09/24/22 01/15/24 Relief Extra Strength (acetaminophen)) aspirin 81 mg chewable tablet 81 mg PO DAILY 07/21/23 01/15/24 atorvastatin 40 mg tablet 40 mg PO DAILY 07/21/23 01/15/24 calcium carbonate 500 mg-vitamin 1 tab PO BID 07/21/23 01/15/24 D3 2.5 mcg (100 unit) chewable tablet cholecalciferol (vitamin D3) 50 2,000 unit PO DAILY 07/21/23 01/15/24 mcg (2,000 unit) tablet famotidine 20 mg tablet 20 mg PO DAILY 07/21/23 01/15/24 isosorbide mononitrate 30 mg 30 mg PO DAILY 07/21/23 01/15/24 tablet,extended release 24 hr omeprazole 20 mg capsule,delayed 20 mg PO DAILY 07/21/23 01/15/24 release fluticasone propionate 50 intranasal 12/15/23 01/06/24 mcg/actuation nasal spray,suspension alendronate 70 mg tablet 70 mg PO WEEKLY 01/15/24 01/15/24 Previous Rx's Medication Instructions Recorded diazepam 2 mg tablet 2 mg PO TID PRN Anxiety 30 days 03/03/23 #90 tabs sennosides 8.6 mg-docusate sodium 1 tab PO DAILY PRN Constipation #0 03/03/23 50 mg tablet (Stool tabs Softener-Stimulant Laxative) metoprolol succinate 50 mg See Rx Instructions .Route 10/11/23 tablet,extended release 24 hr .COMPLEX #90 tabs ondansetron 4 mg disintegrating 4 mg PO Q8H PRN nausea and 11/28/23 tablet vomiting 4 days #12 tabs amlodipine 5 mg tablet 5 mg PO DAILY #30 tabs 12/03/23 nystatin 100,000 unit/gram topical 1 applic topical BID #30 grams 12/09/23 ointment clopidogrel 75 mg tablet (Plavix) 75 mg PO DAILY #90 tabs 12/10/23 linaclotide 145 mcg capsule 145 mcg PO DAILY constipation #30 12/16/23 (Linzess) caps gabapentin 100 mg capsule 200 mg (2 x 100 mg) PO HS #60 caps 01/10/24 ondansetron 4 mg disintegrating 4 mg PO Q8H PRN Nausea #12 tabs 01/15/24 tablet Allergies Allergy/AdvReac Type Severity Reaction Status Date / Time codeine [CODEINE] Allergy Unknown WEAK Verified 01/15/24 12:04 hydrochlorothiazide Allergy Unknown I-RASH Verified 01/15/24 12:04 [HYDROCHLOROTHIAZIDE] hydrocodone [HYDROCODONE] Allergy Unknown I-RASH Verified 01/15/24 12:04 metoclopramide Allergy Unknown SLURRED Verified 01/15/24 12:04 [METOCLOPRAMIDE] SPEECH, WEAK nifedipine [NIFEDIPINE] Allergy Unknown I-HIVES Verified 01/15/24 12:04 prazosin [PRAZOSIN] Allergy Unknown ITCHING/WEA Verified 01/15/24 12:04 K triamterene [TRIAMTERENE] Allergy Unknown I-RASH Verified 01/15/24 12:04 PFSH PFS Disclaimer: The information contained in this section may have been updated after the patient was seen, as this information can be updated by other users. Medical History Type 2 diabetes mellitus Anxiety Gastro-esophageal reflux disease without esophagitis Grief reaction Stricture and stenosis of esophagus Esophageal thickening Esophageal thickening Femur fracture, left History of left heart catheterization Coronary artery disease Carotid artery stenosis Surgical History History of permanent cardiac pacemaker placement S/P CABG x 1 Status post aortic valve replacement with bioprosthetic valve Family History Other Family history of cancer Family history of diabetes mellitus type II Family history of hypertension Family history of myocardial infarction Social History Smoking Status: Never smoker second hand exposure: Yes alcohol intake: never substance use type: denies use current occupational status: retired Travel in the last 8 weeks: None household members: none housing: apartment lives independently: Yes marital status: single education level: middle school service: No residential: No current occupational exposures/hazards: No caffeine: Yes do you feel safe at home: Yes victim of physical abuse: No victim of emotional abuse: No victim of sexual abuse: No would you like helpful sources: No ROS Obtained: Yes All systems reviewed & no additional complaints except as documented Constitutional Constitutional: Denies chills, Denies fever(s) and Reports poor appetite ENT Ears, Nose, Mouth, and Throat: Denies dizziness and Denies sore throat Cardiovascular Cardiovascular: Denies dyspnea Respiratory Respiratory: Denies chest congestion, Denies cough and Denies dyspnea Gastrointestinal Gastrointestingal: Reports as per HPI, dyspepsia and nausea; Denies constipation, cramping, diarrhea or vomiting Genitourinary Female Genitourinary: Denies difficulty voiding, Denies dysuria, Denies hematuria, Denies urinary frequency, Denies urinary incontinence, Denies urinary hesitancy and Denies urinary urgency Musculoskeletal Musculoskeletal: Denies arthralgias Integumentary/Breasts Skin/Breast: Denies rash Neurologic Neurologic: Denies dizziness Physical Exam General General appearance: alert and in no apparent distress Head Head exam: atraumatic and normocephalic Eye Eye exam: Present normal appearance, PERRL and EOMI ENT ENT exam: Present normal exam, normal oropharynx, mucous membranes moist, TM's normal bilaterally and normal external ear exam Neck Neck exam: Present normal inspection, full ROM and trachea midline; Absent tenderness, meningismus or lymphadenopathy Chest Chest inspection: Present normal inspection and symmetric chest wall rise; Absent tenderness, rash or abscess Respiratory Respiratory exam: Present normal lung sounds bilaterally; Absent respiratory distress, wheezes or stridor Cardiovascular Cardiovascular exam: Present regular rate and normal rhythm; Absent irregular rhythm, systolic murmur, diastolic murmur or JVD Abdominal Exam Abdominal exam: Present soft and normal bowel sounds; Absent distention, tenderness, guarding, rebound, rigidity, psoas sign, obturator sign, heel tap sign, Donis's sign, Rovsing's sign or tenderness at McBurney's Point Extremities Exam Extremities exam: Present normal inspection and full ROM; Absent tenderness Back Exam Back exam: Present normal inspection and full ROM; Absent tenderness, CVA tenderness (R) or CVA tenderness (L) Neurological Exam Neurological exam: Present alert, oriented X3 and CN II-XII intact Psychiatric Psychiatric exam: Present normal affect and normal mood Skin Skin exam: Present warm, dry, intact and normal color Lymphatic Lymphatic Findings: no adenopathy Medical Decision Making Medical Records Medical records reviewed: No I reviewed the patient's medical records. Chet Inquiry Pt receiving controlled substance: No
[2024-01-15 11:45] VITALS: BP 142/77; PULSE 70; RESP 16; TEMP 36.4; O2SAT 100; BMI 21.9
[2024-01-15 12:41] VITALS: BP 142/77; PULSE 70; RESP 16; TEMP 36.4; O2SAT 100
== END 2024-01-15 12:41 | disposition home or self-care (01) ==
PROVIDERS: Emergency Provider Nurse Practitioner Family; PCP Internal Medicine
DX: R10.13 Epigastric pain (principal); G89.29 Other chronic pain; F45.42 Pain disorder with related psychological factors; R41.89 Other symptoms and signs involving cognitive functions and awareness
CPT/HCPCS: 99212; 99214; G0463

== ENCOUNTER 2024-01-18 12:10 | Emergency (ER) | payer MEDICARE, OTHER, SELFPAY ==
[2024-01-18 12:11] VITALS: BP 156/77; PULSE 77; RESP 20; TEMP 37.1; O2SAT 99; BMI 21.9
--- NOTE | 2024-01-18 13:34 | CT_ITS ---
FINAL REPORT CLINICAL HISTORY: epigasgtric pain COMPARISON: 12/04/2023 FINDINGS: CT OF THE ABDOMEN AND PELVIS WITH CONTRAST Axial CT images of the abdomen and pelvis were obtained after the administration of IV contrast. Coronal reformatted images were also obtained and reviewed.This study was performed with techniques to keep radiation doses as low as reasonably achievable (ALARA). Individualized dose reduction techniques using automated exposure control or adjustment of mA and/or kV according to the patient's size were employed. Abdomen: There is a nodule in the right middle lobe measuring 15 mm which is new or significantly larger compared to the prior study. This is favored to be inflammatory. The heart is normal in size. A moderate hiatal hernia is noted. There are several low-attenuation hepatic masses which are stable and may represent cysts and/or hemangiomas. Mild nonspecific gallbladder wall thickening is noted. The spleen is unremarkable. No adrenal mass is present. The pancreas has an unremarkable appearance. The kidneys are normal, without evidence of mass or hydronephrosis. The aorta is normal in caliber. There is no free fluid or adenopathy. No mass or abnormal fluid collection is seen. Pelvis: The appendix is not seen and may be surgically absent. The urinary bladder is unremarkable. The patient is post hysterectomy. There is no evidence of mass or adenopathy. There are multiple fluid-filled loops of large and small bowel which are nonspecific and may represent ileus or enteritis. There is postoperative change of the left femur. IMPRESSION: Right middle lobe nodule new or significantly larger. Recommend follow-up CT scan in 3 months. Possible ileus or enteritis. Moderate hiatal hernia. Reviewed, Interpreted and Dictated by Juan Cabrera III, MD Transcribed by Vianney Mack Authenticated and [facility]
--- NOTE | 2024-01-18 13:36 | ED_ITS ---
Discharge Plan Disposition Patient Disposition: Home, Self-Care Chief Complaint: Abdominal Pain Prescriptions Prescriptions: No Action fluticasone propionate 50 mcg/actuation spray,suspension intranasal venlafaxine 37.5 mg tablet 37.5 mg PO BID metformin 500 mg tablet 500 mg PO BID quetiapine [Seroquel] 50 mg tablet 50 mg PO HS Linzess 145 mcg capsule 72 mcg PO DAILY linaclotide 72 mcg capsule 72 mcg PO DAILY metoprolol succinate 50 mg tablet extended release 24 hr See Rx Instructions .ROUTE .COMPLEX Qty: 90 3RF Dose Instruction: TAKE ONE TABLET BY MOUTH ONCE A DAY FOR HIGH BLOOD PRESSURE Rx Instructions: TAKE ONE TABLET BY MOUTH ONCE A DAY FOR HIGH BLOOD PRESSURE amlodipine 5 mg tablet 5 mg PO DAILY Qty: 30 2RF clopidogrel [Plavix] 75 mg tablet 75 mg PO DAILY Qty: 90 1RF gabapentin 100 mg capsule 200 mg PO HS Qty: 60 2RF acetaminophen [Pain Relief ES (acetaminophen)] 500 mg tablet 500 - 1,000 mg PO Q6HP PRN (Reason: Pain) diazepam 2 mg tablet 2 mg PO TID PRN (Reason: Anxiety) 30 Days Qty: 90 0RF omeprazole 20 mg capsule,delayed release(DR/EC) 20 mg PO DAILY calcium carbonate-vitamin D3 500 mg-2.5 mcg (100 unit) tablet,chewable 1 tab PO BID cholecalciferol (vitamin D3) 50 mcg (2,000 unit) tablet 2,000 unit PO DAILY atorvastatin 40 mg tablet 40 mg PO DAILY isosorbide mononitrate 30 mg tablet extended release 24 hr 30 mg PO DAILY famotidine 20 mg tablet 20 mg PO DAILY aspirin 81 mg tablet,chewable 81 mg PO DAILY alendronate 70 mg tablet 70 mg PO WEEKLY ondansetron 4 mg Tablet,Disintegrating 4 mg PO Q8H PRN (Reason: Nausea) Qty: 12 0RF Referrals Follow up/Referrals: Hansel Ruff MD [Primary Care Provider] - See instructions Activity Restrictions/Add. Instructions Additional Instructions/Restrictions: At this time is felt you are safe to be discharged home. You really will benefit from following up with your editorial manager as we have discussed multiple times before. You have a small spot on the right lobe of your lung which is likely not anything serious we just need to keep an eye on it. Clinical Impressions Clinical Impression: Abdominal pain, Vomiting, Incidental pulmonary nodule Instructions Patient Instructions: DI for Acute Abdominal Pain Discharge ED Provider: Kamlesh Wei General Adult HPI <Lennox Conrad MD - Last Filed: 01/18/24 15:48> General Chief complaint: Abdominal Pain Stated complaint: abd pain Time Seen by Provider: 01/18/24 12:16 Mode of Arrival: Ambulatory Source of Information: Patient Limitations: No Limitations Description of Symptoms (Recalled from ER Triage Doc. by RN): belly pain. requesting CT History of Present Illness HPI narrative: Please note that above description of symptoms, in this electronic medical record under categorization of recalled from ER triage doctor by RN are reflective of an initial nursing assessment, however, is not reflective of my full history and physical exam that was personally taken and clarified. Consequentially, this preceding description of symptoms, which may include the patient's categorized chief complaint in the EMR, do not reflect my personal clinical impression, and the ultimate description of history of present illness and patient stated complaints should be deferred to this section of the note. Unless stated otherwise or congruent with this section of the note, additional signs, symptoms, or incongruence should be interpreted as inaccurate with my clinical impression. Related Data Home Medications Medication Instructions Recorded Confirmed venlafaxine 37.5 mg tablet 37.5 mg PO BID mood 07/26/17 01/17/24 metformin 500 mg tablet 500 mg PO BID 05/13/18 01/17/24 quetiapine 50 mg tablet (Seroquel) 50 mg PO HS 12/13/18 01/17/24 acetaminophen 500 mg tablet (Pain 500 - 1,000 mg PO Q6HP PRN Pain 09/24/22 01/17/24 Relief Extra Strength (acetaminophen)) aspirin 81 mg chewable tablet 81 mg PO DAILY 07/21/23 01/17/24 atorvastatin 40 mg tablet 40 mg PO DAILY 07/21/23 01/17/24 calcium carbonate 500 mg-vitamin 1 tab PO BID 07/21/23 01/17/24 D3 2.5 mcg (100 unit) chewable tablet cholecalciferol (vitamin D3) 50 2,000 unit PO DAILY 07/21/23 01/17/24 mcg (2,000 unit) tablet famotidine 20 mg tablet 20 mg PO DAILY 07/21/23 01/17/24 isosorbide mononitrate 30 mg 30 mg PO DAILY 07/21/23 01/17/24 tablet,extended release 24 hr omeprazole 20 mg capsule,delayed 20 mg PO DAILY 07/21/23 01/17/24 release fluticasone propionate 50 intranasal 12/15/23 01/17/24 mcg/actuation nasal spray,suspension alendronate 70 mg tablet 70 mg PO WEEKLY 01/15/24 01/17/24 linaclotide 145 mcg capsule 72 mcg PO DAILY constipation 01/17/24 (Linzess) linaclotide 72 mcg capsule 72 mcg PO DAILY 01/17/24 01/17/24 Previous Rx's Medication Instructions Recorded diazepam 2 mg tablet 2 mg PO TID PRN Anxiety 30 days 03/03/23 #90 tabs metoprolol succinate 50 mg See Rx Instructions .Route 10/11/23 tablet,extended release 24 hr .COMPLEX #90 tabs amlodipine 5 mg tablet 5 mg PO DAILY #30 tabs 12/03/23 clopidogrel 75 mg tablet (Plavix) 75 mg PO DAILY #90 tabs 12/10/23 gabapentin 100 mg capsule 200 mg (2 x 100 mg) PO HS #60 caps 01/10/24 ondansetron 4 mg disintegrating 4 mg PO Q8H PRN Nausea #12 tabs 01/15/24 tablet Allergies Allergy/AdvReac Type Severity Reaction Status Date / Time codeine [CODEINE] Allergy Unknown WEAK Verified 01/17/24 15:16 hydrochlorothiazide Allergy Unknown I-RASH Verified 01/17/24 15:16 [HYDROCHLOROTHIAZIDE] hydrocodone [HYDROCODONE] Allergy Unknown I-RASH Verified 01/17/24 15:16 metoclopramide Allergy Unknown SLURRED Verified 01/17/24 15:16 [METOCLOPRAMIDE] SPEECH, WEAK nifedipine [NIFEDIPINE] Allergy Unknown I-HIVES Verified 01/17/24 15:16 prazosin [PRAZOSIN] Allergy Unknown ITCHING/WEA Verified 01/17/24 15:16 K triamterene [TRIAMTERENE] Allergy Unknown I-RASH Verified 01/17/24 15:16 [facility] <Lennox Conrad MD - Last Filed: 01/18/24 15:48> [facility] Disclaimer: The information contained in this section may have been updated after the patient was seen, as this information can be updated by other users. Medical History Type 2 diabetes mellitus Anxiety Gastro-esophageal reflux disease without esophagitis Grief reaction Stricture and stenosis of esophagus Esophageal thickening Esophageal thickening Femur fracture, left History of left heart catheterization 4 stents Coronary artery disease Carotid artery stenosis Surgical History History of permanent cardiac pacemaker placement 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 Family History Other Family history of cancer Family history of diabetes mellitus type II Family history of hypertension Family history of myocardial infarction Social History Smoking Status: Never smoker second hand exposure: Yes alcohol intake: never substance use type: denies use current occupational status: retired Travel in the last 8 weeks: None household members: none housing: apartment lives independently: Yes marital status: single education level: middle school service: No senior care: No current occupational exposures/hazards: No caffeine: Yes do you feel safe at home: Yes victim of physical abuse: No victim of emotional abuse: No victim of sexual abuse: No would you like helpful sources: No <Lennox Conrad MD - Last Filed: 01/18/24 15:48> ROS Obtained: Yes All systems reviewed & no additional complaints except as documented Physical Exam <Lennox Conrad MD - Last Filed: 01/18/24 15:48> General General appearance: alert and other (Tearful in no acute distress. Repeatedly asking for CT exam) Head Head exam: atraumatic and normocephalic Eye Eye exam: Present normal appearance, PERRL and EOMI Neck Neck exam: Present normal inspection, full ROM and trachea midline Respiratory Respiratory exam: Absent respiratory distress, wheezes, stridor, accessory muscle use or prolonged expiratory phase Cardiovascular Cardiovascular exam: Present other (Pulses equal symmetric in upper and lower extremities) Abdominal Exam Abdominal exam: Present soft; Absent distention, tenderness, guarding, rebound, rigidity or pulsatile mass Extremities Exam Extremities exam: Absent edema Neurological Exam Neurological exam: Present alert, oriented X3 and CN II-XII intact; Absent motor sensory deficit Skin Skin exam: Present warm and dry; Absent diaphoresis or erythema Medical Decision Making <Lennox Conrad MD - Last Filed: 01/18/24 15:48> Medical Records Medical records reviewed: Yes I reviewed the patient's medical records. Chet Inquiry Pt receiving controlled substance: No Chet was queried for this patient: No Vital Signs: 01/18/24 12:11 Temperature 98.7 F Temperature Source Oral Pulse Rate [Right] 77 Respiratory Rate 20 Blood Pressure [Right Arm] 156/77 H Blood Pressure Mean [Right Arm] 103 02 Sat by Pulse Oximetry 99 Oxygen Delivery Method Room Air Lab Data Lab Results 01/18/24 15:25: WBC 4.9, RBC 3.47 L, Hgb 11.6 L, Hct 34.4 L, MCV 99.3 H, MCH 33.6 H, MCHC 33.8, RDW 15.0, Plt Count 224, MPV 8.0, Neut % (Auto) 68.3, Lymph % (Auto) 23.8, [place] % (Auto) 6.7, Eos % (Auto) 0.7, Baso % (Auto) 0.6, Neut # (Auto) 3.3, Lymph # (Auto) 1.2, [place] # (Auto) 0.3, Eos # (Auto) 0.0, Baso # (Auto) 0.0, Sodium 136, Potassium 4.6, Chloride 101, Carbon Dioxide 24, Anion Gap 15.6 H, BUN 14, Creatinine 0.70, Estimated Creat Clear 39, Estimated GFR 82, Est GFR ( Amer) 99, Glucose 128 H, Calcium 10.5 H, Total Bilirubin 0.4, AST 29, ALT 26, Alkaline Phosphatase 69, Troponin I < 0.01, Total Protein 7.9, A lbumin 5.3 H, Globulin 2.6, Albumin/Globulin Ratio 2.0 H, Lipase 49 01/18/24 15:31: Urine Color Yellow, Urine Appearance Clear, Urine pH 7.0, Ur Specific Plummer <= 1.005, Urine Protein Negative, Urine Glucose (UA) Negative, Urine Ketones Negative, Urine Blood Trace-i, Urine Nitrate Negative, Urine Bilirubin Negative, Urine Urobilinogen 0.2, Ur Leukocyte Esterase Negative, Urine RBC Occasional, Urine WBC None, Ur Squamous Epith Cells Occasional, Urine Bacteria Trace 01/18/24 15:25 01/18/24 15:25 Orders (Tests/Meds): ED MEDICATIONS Generic Name Dose Route Start Last Admin Trade Name Juan F PRN Reason Stop Dose Admin Sodium Chloride 8 ml 01/18/24 13:34 01/18/24 15:10 Sodium Chloride 0.9% 10ml Vial IV 02/17/24 13:33 8 ml NEEDED PRN Administration dilute pepcid Discontinued Medications Generic Name Dose Route Start Last Admin Trade Name Juan F PRN Reason Stop Dose Admin Belladonna Alkaloids 60 ml 01/18/24 13:34 01/18/24 15:10 Belladonna Alkaloids 60 Ml Ml PO 01/18/24 13:35 60 ml ONCE ONE Administration Famotidine 20 mg 01/18/24 13:34 01/18/24 15:10 Famotidine 20mg/2ml Vial IV 01/18/24 13:35 20 mg ONCE ONE Administration Lactated Ringer's 1,000 mls @ 999 mls/hr 01/18/24 13:34 01/18/24 15:10 Lactated Ringer's 1000 Ml Bag IV 01/18/24 14:34 999 mls/hr .Q1H1M ONE Administration Iopamidol 75 ml 01/18/24 16:15 01/18/24 16:16 Iopamidol-370 (76%);100ml Bottle IV 01/18/24 16:16 75 ml ONCE ONE Administration Ondansetron HCl 4 mg 01/18/24 13:34 01/18/24 15:10 Ondansetron 4mg/2ml Vial IV 01/18/24 13:35 4 mg ONCE ONE Administration Sodium Chloride 10 ml 01/18/24 16:15 01/18/24 16:16 Sodium Chloride 0.9% 10ml Syr (Rad Only) IV 01/18/24 16:16 10 ml ONCE ONE Administration ORDERS Category Date Time Status CT abdomen pelvis w con Stat Cat Scan 01/18/24 13:34 Completed CBC w/Auto Diff [Complete Blood Count Auto Diff] Stat Lab 01/18/24 15:25 Completed CMP [Comprehensive Metabolic Panel] Stat Lab 01/18/24 15:25 Completed Lipase Stat Lab 01/18/24 15:25 Completed Trop I [Troponin I] Stat Lab 01/18/24 15:25 Completed Troponin I Q3H Lab 01/18/24 18:25 Ordered Troponin I Q3H Lab 01/18/24 21:25 Ordered UA [Urinalysis and Microscopic] Stat Lab 01/18/24 15:31 Completed Medical Decision Narrative: Is a 73-year-old female history of chronic abdominal pain, CAD, diabetes, one- vessel CABG, aortic valve replacement, illness anxiety disorder presenting with concern for abdominal pain. Patient is very well-known to this emergency department for chronic abdominal pain. She also has illness anxiety disorder, convinced that she has cancer, amongst a host of other diseases. Patient states that this pain is different and that it is making her vomit. The character of the pain is not any different, the location of the pain is no different. It is epigastric, does not radiate, but now associated with nonbloody, nonbilious vomiting. Last bowel movement was today and normal for her. She ate lunch 30 minutes prior to this visit and kept it down without issue. No fevers or chills, weight loss, night sweats, or any other associated symptoms. History obtained with patient and chart review. On arrival, patient very well- appearing, she is tearful and hysterical. Abdomen soft, nontender, nondistended and distractible. No overlying skin changes. No flank tenderness. Patient otherwise appropriate and interactive. Repeatedly asking for CT abdomen pelvis. Differential includes illness anxiety disorder, gastritis, PUD, enteritis, malignancy, pancreatitis, ACS, MD, enteritis, diverticulitis, among others. Hematologic workup and imaging to be obtained. Patient given GI cocktail, Pepcid, fluids, Zofran. Workup pending at time of handoff to oncoming physician. Part Time disclaimer Much of this encounter note is an electronic assistant speech language pathologist spoken language to printed text. Electronic assistant speech language pathologist of the spoken language may permit errors. Although I have reviewed the note, some errors may still exist. <Kamlesh Wei MD - Last Filed: 01/18/24 17:18> Vital Signs: 01/18/24 12:11 Temperature 98.7 F Temperature Source Oral Pulse Rate [Right] 77 Respiratory Rate 20 Blood Pressure [Right Arm] 156/77 H Blood Pressure Mean [Right Arm] 103 02 Sat by Pulse Oximetry 99 Oxygen Delivery Method Room Air Lab Data Lab Results 01/18/24 15:25: WBC 4.9, RBC 3.47 L, Hgb 11.6 L, Hct 34.4 L, MCV 99.3 H, MCH 33.6 H, MCHC 33.8, RDW 15.0, Plt Count 224, MPV 8.0, Neut % (Auto) 68.3, Lymph % (Auto) 23.8, [place] % (Auto) 6.7, Eos % (Auto) 0.7, Baso % (Auto) 0.6, Neut # (Auto) 3.3, Lymph # (Auto) 1.2, [place] # (Auto) 0.3, Eos # (Auto) 0.0, Baso # (Auto) 0.0, Sodium 136, Potassium 4.6, Chloride 101, Carbon Dioxide 24, Anion Gap 15.6 H, BUN 14, Creatinine 0.70, Estimated Creat Clear 39, Estimated GFR 82, Est GFR ( Amer) 99, Glucose 128 H, Calcium 10.5 H, Total Bilirubin 0.4, AST 29, ALT 26, Alkaline Phosphatase 69, Troponin I < 0.01, Total Protein 7.9, A lbumin 5.3 H, Globulin 2.6, Albumin/Globulin Ratio 2.0 H, Lipase 49 01/18/24 15:31: Urine Color Yellow, Urine Appearance Clear, Urine pH 7.0, Ur Specific Plummer <= 1.005, Urine Protein Negative, Urine Glucose (UA) Negative, Urine Ketones Negative, Urine Blood Trace-i, Urine Nitrate Negative, Urine Bilirubin Negative, Urine Urobilinogen 0.2, Ur Leukocyte Esterase Negative, Urine RBC Occasional, Urine WBC None, Ur Squamous Epith Cells Occasional, Urine Bacteria Trace Orders (Tests/Meds): ED MEDICATIONS Generic Name Dose Route Start Last Admin Trade Name Freq PRN Reason Stop Dose Admin Sodium Chloride 8 ml 01/18/24 13:34 01/18/24 15:10 Sodium Chloride 0.9% 10ml Vial IV 02/17/24 13:33 8 ml NEEDED PRN Administration dilute pepcid Discontinued Medications Generic Name Dose Route Start Last Admin Trade Name Freq PRN Reason Stop Dose Admin Belladonna Alkaloids 60 ml 01/18/24 13:34 01/18/24 15:10 Belladonna Alkaloids 60 Ml Ml PO 01/18/24 13:35 60 ml ONCE ONE Administration Famotidine 20 mg 01/18/24 13:34 01/18/24 15:10 Famotidine 20mg/2ml Vial IV 01/18/24 13:35 20 mg ONCE ONE Administration Lactated Ringer's 1,000 mls @ 999 mls/hr 01/18/24 13:34 01/18/24 15:10 Lactated Ringer's 1000 Ml Bag IV 01/18/24 14:34 999 mls/hr .Q1H1M ONE Administration Iopamidol 75 ml 01/18/24 16:15 01/18/24 16:16 Iopamidol-370 (76%);100ml Bottle IV 01/18/24 16:16 75 ml ONCE ONE Administration Ondansetron HCl 4 mg 01/18/24 13:34 01/18/24 15:10 Ondansetron 4mg/2ml Vial IV 01/18/24 13:35 4 mg ONCE ONE Administration Sodium Chloride 10 ml 01/18/24 16:15 01/18/24 16:16 Sodium Chloride 0.9% 10ml Syr (Rad Only) IV 01/18/24 16:16 10 ml ONCE ONE Administration ORDERS Category Date Time Status CT abdomen pelvis w con Stat Cat Scan 01/18/24 13:34 Completed CBC w/Auto Diff [Complete Blood Count Auto Diff] Stat Lab 01/18/24 15:25 Completed CMP [Comprehensive Metabolic Panel] Stat Lab 01/18/24 15:25 Completed Lipase Stat Lab 01/18/24 15:25 Completed Trop I [Troponin I] Stat Lab 01/18/24 15:25 Completed Troponin I Q3H Lab 01/18/24 18:25 Ordered Troponin I Q3H Lab 01/18/24 21:25 Ordered UA [Urinalysis and Microscopic] Stat Lab 01/18/24 15:31 Completed Medical Decision Narrative: Is a 73-year-old female history of chronic abdominal pain, CAD, diabetes, one- vessel CABG, aortic valve replacement, illness anxiety disorder presenting with concern for abdominal pain. Patient is very well-known to this emergency department for chronic abdominal pain. She also has illness anxiety disorder, convinced that she has cancer, amongst a host of other diseases. Patient states that this pain is different and that it is making her vomit. The character of the pain is not any different, the location of the pain is no different. It is epigastric, does not radiate, but now associated with nonbloody, nonbilious vomiting. Last bowel movement was today and normal for her. She ate lunch 30 minutes prior to this visit and kept it down without issue. No fevers or chills, weight loss, night sweats, or any other associated symptoms. History obtained with patient and chart review. On arrival, patient very well- appearing, she is tearful and hysterical. Abdomen soft, nontender, nondistended and distractible. No overlying skin changes. No flank tenderness. Patient otherwise appropriate and interactive. Repeatedly asking for CT abdomen pelvis. Differential includes illness anxiety disorder, gastritis, PUD, enteritis, malignancy, pancreatitis, ACS, MD, enteritis, diverticulitis, among others. Hematologic workup and imaging to be obtained. Patient given GI cocktail, Pepcid, fluids, Zofran. Workup pending at time of handoff to oncoming physician. Part Time disclaimer Much of this encounter note is an electronic assistant speech language pathologist spoken language to printed text. Electronic assistant speech language pathologist of the spoken language may permit errors. Although I have reviewed the note, some errors may still exist. Kamlesh Wei: Upon assumption of care patient was hemodynamically stable. Workup reviewed by me, hematologic labs are nonactionable, initial troponin undetectably low. Urinalysis interpreted by me and not consistent with infection. Upon repeat evaluation patient was well-appearing underwent p.o. trial with successful. Patient has no emergent pathology requiring intervention and is well-known to the emergency department and really does not need to follow-up with her editorial manager. Patient is appropriate for discharge at this time. Critical Care <Lennox Conrad MD - Last Filed: 01/18/24 15:48> Critical Care Time Critical Care Time: No
--- NOTE | 2024-01-18 15:06 | HMH.ITSTN ---
spoke to melodie BAÑUELOS , pt is a hard stick unable to get blood , they have called for lab to come and try to get blood prior to the ct scan
[2024-01-18] MEDS: LACTATED RINGERS 1000ML 1,000 ML 999 ML IV (15:10)
[2024-01-18] MEDS: FAMOTIDINE 20MG/2ML VIAL 20 MG IV (15:10)
[2024-01-18] MEDS: SODIUM CHLORIDE 0.9% 10ML VIAL 8 ML IV (15:10)
[2024-01-18] MEDS: ONDANSETRON 4MG/2ML VIAL 4 MG IV (15:10)
[2024-01-18] MEDS: BELLADONNA ALKALOIDS 60 ML ML PO (15:10)
[2024-01-18 15:34] LABS: Basophils % 0.6 % (0.1-2.0); Eosinophils % 0.7 % (0.1-12.0); Hematocrit 34.4 % (37.0-47.0); Hemoglobin 11.6 g/dL (12.2-16.2); Lymphocytes # 1.2 K/mm3 (0.7-4.5); Lymphocytes % 23.8 % (10-50); Mean Corpuscular HGB Conc 33.8 g/dL (31.8-35.4); Mean Corpuscular Hemoglobin 33.6 pg (27.0-31.2); Mean Corpuscular Volume 99.3 fl (81-99); Monocytes # 0.3 K/mm3 (0.1-1.0); Monocytes % 6.7 % (1.7-9.3); Neutrophils # 3.3 K/mm3 (1.8-7.8); Neutrophils % 68.3 % (37.0-80.0); Platelet Count 224 K/mm3 (142-424); Red Blood Count 3.47 M/mm3 (4.20-5.40); White Blood Count 4.9 K/mm3 (4.8-10.8)
--- NOTE | 2024-01-18 15:34 | PC.NURSE ---
Attempted IV X2, one attempt was with US machine. Both sites had blood return but when line was flushed, vein blew. EDDA Sears used US and established 20g in the right upper arm on 2nd attempt. Line had good blood return and was able to be flushed, unable to obtain labs at this time. Report to EDDA Waters Charge Nurse. She was going to notify lab we were unable to collect labs.
[2024-01-18 15:47] LABS: Chloride 101 mmol/L (98-107)
[2024-01-18 15:48] LABS: Potassium 4.6 mmoL/L (3.5-5.1); Sodium 136 mmol/L (136-145)
[2024-01-18 15:48] LABS: Microscopic, Urine URINE MICROSCOPIC (MICROSCOPIC)
[2024-01-18 15:50] LABS: Alanine Aminotransferase 26 U/L (12-78); Alkaline Phosphatase 69 U/L (38-126); Aspartate Amino Transferase 29 U/L (14-36); Bilirubin,Total 0.4 mg/dl (0.2-1.3); Blood Urea Nitrogen 14 mg/dl (7-17); Creatinine Clearance Estimated 39 mL/min (50-200); Estimated Glomerular Filt Rate 82 ml/min (>60); GFR (African American) 99 ML/MIN (>60)
[2024-01-18 15:51] LABS: Albumin Level 5.3 g/dl (3.5-5.0); Anion Gap 15.6 mEq/L (5-15); Calcium 10.5 mg/dl (8.4-10.2); Carbon Dioxide 24 mmol/L (22.0-30.0); Globulin 2.6 g/dL (1.3-3.2); Glucose 128 mg/dl (74-100); Lipase 49 U/L (23-300); Total Protein,Serum 7.9 g/dl (6.3-8.2)
[2024-01-18 15:54] LABS: Appearance,Urine CLEAR (Clear); Bilirubin,Urine Negative (Negative); Blood, Urine TRACE-I (Negative); Color,Urine YELLOW (Yellow); Glucose,Urine (UA) Negative (Negative); Ketones,Urine Negative (Negative); Leukocyte Esterase,Urine Negative (Negative); Nitrate,Urine Negative (Negative); Protein,Urine Negative (Negative); Specific Gravity, Urine <= 1.005 (1.005-1.030); Urobilinogen,Urine 0.2 EU/dl (0.2)
[2024-01-18 16:06] LABS: Troponin I < 0.01 ng/ml (0.00-0.034)
[2024-01-18 16:10] LABS: Bacteria,Urine Trace /lpf; RBC,Urine Occasional #/hpf (0-3); Squamous Epithelial Cell,Urine Occasional #/hpf (0-5)
[2024-01-18] MEDS: SODIUM CHLORIDE 0.9% 10ML SYR (RAD ONLY) 10 ML IV (16:16)
[2024-01-18] MEDS: IOPAMIDOL-370 (76%);100ML BOTTLE 75 ML IV (16:16)
--- NOTE | 2024-01-18 17:19 | PC.NURSE ---
Jermaine Mcguire PA-C at bedside
[2024-01-18 17:22] VITALS: BP 134/76; PULSE 78; RESP 16; TEMP 36.5; O2SAT 94
== END 2024-01-18 17:26 | disposition home or self-care (01) ==
PROVIDERS: Emergency Medicine; Emergency Provider Emergency Medicine; PCP Internal Medicine
DX: R10.13 Epigastric pain (principal); R11.2 Nausea with vomiting, unspecified; R91.1 Solitary pulmonary nodule; G89.29 Other chronic pain; F45.42 Pain disorder with related psychological factors; R41.89 Other symptoms and signs involving cognitive functions and awareness; E11.9 Type 2 diabetes mellitus without complications; K21.9 Gastro-esophageal reflux disease without esophagitis; I65.29 Occlusion and stenosis of unspecified carotid artery; I11.9 Hypertensive heart disease without heart failure; I25.10 Atherosclerotic heart disease of native coronary artery without angina pectoris; Z95.0 Presence of cardiac pacemaker; Z95.1 Presence of aortocoronary bypass graft; Z79.84 Long term (current) use of oral hypoglycemic drugs
CPT/HCPCS: 36415; 74177; 80053; 81001; 83690; 84484; 85025; 96361; 96374; 96375; 99285; J2405; J7120; Q9967

== ENCOUNTER 2024-01-22 14:10 | Emergency (ER) | payer MEDICARE, OTHER, SELFPAY ==
[2024-01-22 14:10] VITALS: BP 116/78; PULSE 90; RESP 18; TEMP 36.9; O2SAT 95; BMI 21.9
[2024-01-22 15:17] VITALS: BP 162/70; PULSE 73; RESP 20; TEMP 36.7; O2SAT 99
--- NOTE | 2024-01-22 15:49 | ED_ITS ---
Discharge Plan Disposition Patient Disposition: Home, Self-Care Condition: Good Prescriptions Prescriptions: No Action fluticasone propionate 50 mcg/actuation spray,suspension intranasal venlafaxine 37.5 mg tablet 37.5 mg PO BID metformin 500 mg tablet 500 mg PO BID quetiapine [Seroquel] 50 mg tablet 50 mg PO HS Linzess 145 mcg capsule 72 mcg PO DAILY linaclotide 72 mcg capsule 72 mcg PO DAILY metoprolol succinate 50 mg tablet extended release 24 hr See Rx Instructions .ROUTE .COMPLEX Qty: 90 3RF Dose Instruction: TAKE ONE TABLET BY MOUTH ONCE A DAY FOR HIGH BLOOD PRESSURE Rx Instructions: TAKE ONE TABLET BY MOUTH ONCE A DAY FOR HIGH BLOOD PRESSURE amlodipine 5 mg tablet 5 mg PO DAILY Qty: 30 2RF clopidogrel [Plavix] 75 mg tablet 75 mg PO DAILY Qty: 90 1RF gabapentin 100 mg capsule 200 mg PO HS Qty: 60 2RF acetaminophen [Pain Relief ES (acetaminophen)] 500 mg tablet 500 - 1,000 mg PO Q6HP PRN (Reason: Pain) diazepam 2 mg tablet 2 mg PO TID PRN (Reason: Anxiety) 30 Days Qty: 90 0RF omeprazole 20 mg capsule,delayed release(DR/EC) 20 mg PO DAILY calcium carbonate-vitamin D3 500 mg-2.5 mcg (100 unit) tablet,chewable 1 tab PO BID cholecalciferol (vitamin D3) 50 mcg (2,000 unit) tablet 2,000 unit PO DAILY atorvastatin 40 mg tablet 40 mg PO DAILY isosorbide mononitrate 30 mg tablet extended release 24 hr 30 mg PO DAILY famotidine 20 mg tablet 20 mg PO DAILY aspirin 81 mg tablet,chewable 81 mg PO DAILY alendronate 70 mg tablet 70 mg PO WEEKLY ondansetron 4 mg Tablet,Disintegrating 4 mg PO Q8H PRN (Reason: Nausea) Qty: 12 0RF Referrals Follow up/Referrals: Hansel Ruff MD [Primary Care Provider] - See instructions Activity Restrictions/Add. Instructions Additional Instructions/Restrictions: Please continue follow-up outpatient with your specialists. Keep your appointments with them. Return to the emergency department for new or worsening symptoms. Clinical Impressions Clinical Impression: Chronic upper abdominal pain Instructions Patient Instructions: DI for Chronic Pain -- Adult Discharge ED Provider: Glenys Hassan General Adult HPI General Chief complaint: PAIN Stated complaint: abdomial pain Time Seen by Provider: 01/22/24 15:00 Mode of Arrival: EMS Source of Information: Patient and EMS Limitations: No Limitations Description of Symptoms (Recalled from ER Triage Doc. 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 today patient states she has left rib pain, denies any falls or trauma History of Present Illness HPI narrative: This patient is a 73-year-old female with chronic abdominal pain who is well- known to the emergency department presenting to the emergency department for evaluation with concern for recurrence of chronic abdominal pain. She states that it similar to the last time that she was here. She also states she is having some left rib pain, but she has not had any falls or traumatic injury. She notes she has follow-up arranged for this. I reviewed medical records and noted multiple previous evaluations for this over the last several months with reassuring workups, including multiple CT scans as well as multiple ultrasounds. Last CT scan was 01/18/2024, which demonstrated pulmonary nodule as well as hiatal hernia and ileitis. Patient has close follow-up with gastroenterology, general surgery, and primary care arranged for all of these issues. Related Data Home Medications Medication Instructions Recorded Confirmed venlafaxine 37.5 mg tablet 37.5 mg PO BID mood 07/26/17 01/17/24 metformin 500 mg tablet 500 mg PO BID 05/13/18 01/17/24 quetiapine 50 mg tablet (Seroquel) 50 mg PO HS 12/13/18 01/17/24 acetaminophen 500 mg tablet (Pain 500 - 1,000 mg PO Q6HP PRN Pain 09/24/22 01/17/24 Relief Extra Strength (acetaminophen)) aspirin 81 mg chewable tablet 81 mg PO DAILY 07/21/23 01/17/24 atorvastatin 40 mg tablet 40 mg PO DAILY 07/21/23 01/17/24 calcium carbonate 500 mg-vitamin 1 tab PO BID 07/21/23 01/17/24 D3 2.5 mcg (100 unit) chewable tablet cholecalciferol (vitamin D3) 50 2,000 unit PO DAILY 07/21/23 01/17/24 mcg (2,000 unit) tablet famotidine 20 mg tablet 20 mg PO DAILY 07/21/23 01/17/24 isosorbide mononitrate 30 mg 30 mg PO DAILY 07/21/23 01/17/24 tablet,extended release 24 hr omeprazole 20 mg capsule,delayed 20 mg PO DAILY 07/21/23 01/17/24 release fluticasone propionate 50 intranasal 12/15/23 01/17/24 mcg/actuation nasal spray,suspension alendronate 70 mg tablet 70 mg PO WEEKLY 01/15/24 01/17/24 linaclotide 145 mcg capsule 72 mcg PO DAILY constipation 01/17/24 (Linzess) linaclotide 72 mcg capsule 72 mcg PO DAILY 01/17/24 01/17/24 Previous Rx's Medication Instructions Recorded diazepam 2 mg tablet 2 mg PO TID PRN Anxiety 30 days 03/03/23 #90 tabs metoprolol succinate 50 mg See Rx Instructions .Route 10/11/23 tablet,extended release 24 hr .COMPLEX #90 tabs amlodipine 5 mg tablet 5 mg PO DAILY #30 tabs 12/03/23 clopidogrel 75 mg tablet (Plavix) 75 mg PO DAILY #90 tabs 12/10/23 gabapentin 100 mg capsule 200 mg (2 x 100 mg) PO HS #60 caps 01/10/24 ondansetron 4 mg disintegrating 4 mg PO Q8H PRN Nausea #12 tabs 01/15/24 tablet Allergies Allergy/AdvReac Type Severity Reaction Status Date / Time codeine [CODEINE] Allergy Unknown WEAK Verified 01/17/24 15:16 hydrochlorothiazide Allergy Unknown I-RASH Verified 01/17/24 15:16 [HYDROCHLOROTHIAZIDE] hydrocodone [HYDROCODONE] Allergy Unknown I-RASH Verified 01/17/24 15:16 metoclopramide Allergy Unknown SLURRED Verified 01/17/24 15:16 [METOCLOPRAMIDE] SPEECH, WEAK nifedipine [NIFEDIPINE] Allergy Unknown I-HIVES Verified 01/17/24 15:16 prazosin [PRAZOSIN] Allergy Unknown ITCHING/WEA Verified 01/17/24 15:16 K triamterene [TRIAMTERENE] Allergy Unknown I-RASH Verified 01/17/24 15:16 PFSH PFS Disclaimer: The information contained in this section may have been updated after the patient was seen, as this information can be updated by other users. Medical History Type 2 diabetes mellitus Anxiety Gastro-esophageal reflux disease without esophagitis Grief reaction Stricture and stenosis of esophagus Esophageal thickening Esophageal thickening Femur fracture, left History of left heart catheterization Coronary artery disease Carotid artery stenosis Surgical History History of permanent cardiac pacemaker placement S/P CABG x 1 Status post aortic valve replacement with bioprosthetic valve Family History Other Family history of cancer Family history of diabetes mellitus type II Family history of hypertension Family history of myocardial infarction Social History Smoking Status: Never smoker second hand exposure: Yes alcohol intake: never substance use type: denies use current occupational status: retired Travel in the last 8 weeks: None household members: none housing: apartment lives independently: Yes marital status: single education level: middle school service: No correction: No current occupational exposures/hazards: No caffeine: Yes do you feel safe at home: Yes victim of physical abuse: No victim of emotional abuse: No victim of sexual abuse: No would you like helpful sources: No ROS Obtained: Yes All systems reviewed & no additional complaints except as documented Physical Exam General General appearance: alert and in no apparent distress Head Head exam: atraumatic and normocephalic Eye Eye exam: Present normal appearance, PERRL and EOMI ENT ENT exam: Present normal exam, normal oropharynx, mucous membranes moist and normal external ear exam Neck Neck exam: Present normal inspection, full ROM and trachea midline; Absent tenderness Chest Chest inspection: Present normal inspection and symmetric chest wall rise; Absent tenderness Respiratory Respiratory exam: Present normal lung sounds bilaterally; Absent respiratory distress, wheezes, stridor or accessory muscle use Cardiovascular Cardiovascular exam: Present regular rate and normal rhythm Abdominal Exam Abdominal exam: Present soft; Absent distention, tenderness or guarding Extremities Exam Extremities exam: Present normal inspection, full ROM and normal capillary r efill; Absent tenderness or edema Back Exam Back exam: Present normal inspection and full ROM; Absent tenderness Neurological Exam Neurological exam: Present alert, oriented X3, CN II-XII intact and normal gait; Absent motor sensory deficit Psychiatric Psychiatric exam: Present normal affect and normal mood Skin Skin exam: Present warm and dry Medical Decision Making Medical Records Medical records reviewed: Yes I reviewed the patient's medical records. Chet Inquiry Pt receiving controlled substance: No Vital Signs: 01/22/24 14:10 01/22/24 15:17 Temperature 98.5 F 98.0 F Temperature Source Oral Pulse Rate 73 Pulse Rate [Right Radial] 90 Respiratory Rate 18 20 Blood Pressure 162/70 H Blood Pressure [Right Arm] 116/78 Blood Pressure Mean [Right Arm] 90 02 Sat by Pulse Oximetry 95 Oxygen Delivery Method Room Air Room Air Lab Data Lab results reviewed: Yes I reviewed the patient's lab results. Medical Decision Narrative: In summary, this patient is a 73-year-old female presenting to the Emergency Department for evaluation of acute on chronic abdominal pain as well as left rib pain. Differential diagnoses considered include but are not limited to chronic abdominal pain, ileitis, GERD, constipation, symptomatic hiatal hernia. Ruling out the most morbid conditions drove assessment. It should be noted patient's history includes chronic abdominal pain which is not at goal therapy. This complicates all aspects of care by increasing patient's risk for morbidity. I reviewed patient's past medical records and noted multiple previous evaluations for the same issue. On exam, the patient is resting comfortably in bed with benign abdominal exam. Vitals are reassuring on cardiac telemetry. I reviewed with her her prior imaging and noted that she already has close follow-up arranged for this. Given that there is no significant changes in her symptoms, I do not feel that further imaging or lab evaluation is indicated at this time. Given reassuring exam, I feel that she is appropriate for discharge home with close follow-up with her specialists and primary care as already scheduled. Strict return precautions were given. The patient was discharged after all questions were answered. Critical Care Critical Care Time Critical Care Time: No
== END 2024-01-22 16:29 | disposition home or self-care (01) ==
PROVIDERS: Emergency Provider Emergency Medicine; PCP Internal Medicine
DX: R10.13 Epigastric pain (principal); G89.29 Other chronic pain; F45.42 Pain disorder with related psychological factors; R41.89 Other symptoms and signs involving cognitive functions and awareness
CPT/HCPCS: 99282

== ENCOUNTER 2024-01-23 15:29 | Emergency (ER) | payer MEDICARE, OTHER, SELFPAY ==
[2024-01-23 15:30] VITALS: BP 167/83; RESP 16; TEMP 36.7; O2SAT 95; BMI 21.9
--- NOTE | 2024-01-23 15:37 | ED_ITS ---
Discharge Plan Disposition Patient Disposition: Home, Self-Care Chief Complaint: Abdominal Pain Prescriptions Prescriptions: No Action fluticasone propionate 50 mcg/actuation spray,suspension intranasal venlafaxine 37.5 mg tablet 37.5 mg PO BID metformin 500 mg tablet 500 mg PO BID quetiapine [Seroquel] 50 mg tablet 50 mg PO HS Linzess 145 mcg capsule 72 mcg PO DAILY linaclotide 72 mcg capsule 72 mcg PO DAILY metoprolol succinate 50 mg tablet extended release 24 hr See Rx Instructions .ROUTE .COMPLEX Qty: 90 3RF Dose Instruction: TAKE ONE TABLET BY MOUTH ONCE A DAY FOR HIGH BLOOD PRESSURE Rx Instructions: TAKE ONE TABLET BY MOUTH ONCE A DAY FOR HIGH BLOOD PRESSURE amlodipine 5 mg tablet 5 mg PO DAILY Qty: 30 2RF clopidogrel [Plavix] 75 mg tablet 75 mg PO DAILY Qty: 90 1RF gabapentin 100 mg capsule 200 mg PO HS Qty: 60 2RF acetaminophen [Pain Relief ES (acetaminophen)] 500 mg tablet 500 - 1,000 mg PO Q6HP PRN (Reason: Pain) diazepam 2 mg tablet 2 mg PO TID PRN (Reason: Anxiety) 30 Days Qty: 90 0RF omeprazole 20 mg capsule,delayed release(DR/EC) 20 mg PO DAILY calcium carbonate-vitamin D3 500 mg-2.5 mcg (100 unit) tablet,chewable 1 tab PO BID cholecalciferol (vitamin D3) 50 mcg (2,000 unit) tablet 2,000 unit PO DAILY atorvastatin 40 mg tablet 40 mg PO DAILY isosorbide mononitrate 30 mg tablet extended release 24 hr 30 mg PO DAILY famotidine 20 mg tablet 20 mg PO DAILY aspirin 81 mg tablet,chewable 81 mg PO DAILY alendronate 70 mg tablet 70 mg PO WEEKLY ondansetron 4 mg Tablet,Disintegrating 4 mg PO Q8H PRN (Reason: Nausea) Qty: 12 0RF Referrals Follow up/Referrals: Provider,Referral, MD [Primary Care Provider] - See instructions Activity Restrictions/Add. Instructions Additional Instructions/Restrictions: At this time is felt you are safe to be discharged home. Please maintain your door attendant appointment as you are certainly benefit from their opinion and evaluation. Clinical Impressions Clinical Impression: Chronic epigastric pain Instructions Patient Instructions: DI for Acute Abdominal Pain Discharge ED Provider: Kamlesh Wei General Adult HPI General Chief complaint: Abdominal Pain Stated complaint: Upper Quad Pain Time Seen by Provider: 01/23/24 15:32 History of Present Illness HPI narrative: Patient is 73-year-old female very well-known to the emergency department who presents emergency department for evaluation of her chronic abdominal pain. History is obtained by patient at bedside. It is similar in quality as it always is, paroxysmal, has been going on for months. She does not have any associated vomiting today, no reports of dysuria, it is epigastric in nature where it is usually located, stooling is at baseline. No other acute complaints at this time. Related Data Home Medications Medication Instructions Recorded Confirmed venlafaxine 37.5 mg tablet 37.5 mg PO BID mood 07/26/17 01/17/24 metformin 500 mg tablet 500 mg PO BID 05/13/18 01/17/24 quetiapine 50 mg tablet (Seroquel) 50 mg PO HS 12/13/18 01/17/24 acetaminophen 500 mg tablet (Pain 500 - 1,000 mg PO Q6HP PRN Pain 09/24/22 01/17/24 Relief Extra Strength (acetaminophen)) aspirin 81 mg chewable tablet 81 mg PO DAILY 07/21/23 01/17/24 atorvastatin 40 mg tablet 40 mg PO DAILY 07/21/23 01/17/24 calcium carbonate 500 mg-vitamin 1 tab PO BID 07/21/23 01/17/24 D3 2.5 mcg (100 unit) chewable tablet cholecalciferol (vitamin D3) 50 2,000 unit PO DAILY 07/21/23 01/17/24 mcg (2,000 unit) tablet famotidine 20 mg tablet 20 mg PO DAILY 07/21/23 01/17/24 isosorbide mononitrate 30 mg 30 mg PO DAILY 07/21/23 01/17/24 tablet,extended release 24 hr omeprazole 20 mg capsule,delayed 20 mg PO DAILY 07/21/23 01/17/24 release fluticasone propionate 50 intranasal 12/15/23 01/17/24 mcg/actuation nasal spray,suspension alendronate 70 mg tablet 70 mg PO WEEKLY 01/15/24 01/17/24 linaclotide 145 mcg capsule 72 mcg PO DAILY constipation 01/17/24 (Linzess) linaclotide 72 mcg capsule 72 mcg PO DAILY 01/17/24 01/17/24 Previous Rx's Medication Instructions Recorded diazepam 2 mg tablet 2 mg PO TID PRN Anxiety 30 days 03/03/23 #90 tabs metoprolol succinate 50 mg See Rx Instructions .Route 10/11/23 tablet,extended release 24 hr .COMPLEX #90 tabs amlodipine 5 mg tablet 5 mg PO DAILY #30 tabs 12/03/23 clopidogrel 75 mg tablet (Plavix) 75 mg PO DAILY #90 tabs 12/10/23 gabapentin 100 mg capsule 200 mg (2 x 100 mg) PO HS #60 caps 01/10/24 ondansetron 4 mg disintegrating 4 mg PO Q8H PRN Nausea #12 tabs 01/15/24 tablet Allergies Allergy/AdvReac Type Severity Reaction Status Date / Time codeine [CODEINE] Allergy Unknown WEAK Verified 01/17/24 15:16 hydrochlorothiazide Allergy Unknown I-RASH Verified 01/17/24 15:16 [HYDROCHLOROTHIAZIDE] hydrocodone [HYDROCODONE] Allergy Unknown I-RASH Verified 01/17/24 15:16 metoclopramide Allergy Unknown SLURRED Verified 01/17/24 15:16 [METOCLOPRAMIDE] SPEECH, WEAK nifedipine [NIFEDIPINE] Allergy Unknown I-HIVES Verified 01/17/24 15:16 prazosin [PRAZOSIN] Allergy Unknown ITCHING/WEA Verified 01/17/24 15:16 K triamterene [TRIAMTERENE] Allergy Unknown I-RASH Verified 01/17/24 15:16 PFSH PFS Disclaimer: The information contained in this section may have been updated after the patient was seen, as this information can be updated by other users. Medical History Type 2 diabetes mellitus Anxiety Gastro-esophageal reflux disease without esophagitis Grief reaction Stricture and stenosis of esophagus Esophageal thickening Esophageal thickening Femur fracture, left History of left heart catheterization Coronary artery disease Carotid artery stenosis Surgical History History of permanent cardiac pacemaker placement S/P CABG x 1 Status post aortic valve replacement with bioprosthetic valve Family History Other Family history of cancer Family history of diabetes mellitus type II Family history of hypertension Family history of myocardial infarction Social History Smoking Status: Never smoker second hand exposure: Yes alcohol intake: never substance use type: denies use current occupational status: retired Travel in the last 8 weeks: None household members: none housing: apartment lives independently: Yes marital status: single education level: middle school service: No retirement: No current occupational exposures/hazards: No caffeine: Yes do you feel safe at home: Yes victim of physical abuse: No victim of emotional abuse: No victim of sexual abuse: No would you like helpful sources: No ROS Obtained: Yes Systems reviewed as appropriate & no additional complaints except as documented Physical Exam General General appearance: alert and other (Tearful) Head Head exam: atraumatic and normocephalic Eye Eye exam: Present PERRL ENT ENT exam: Present mucous membranes moist Neck Neck exam: Present normal inspection Chest Chest inspection: Present normal inspection and symmetric chest wall rise Respiratory Respiratory exam: Present normal lung sounds bilaterally; Absent respiratory distress Cardiovascular Cardiovascular exam: Present regular rate and normal rhythm Abdominal Exam Abdominal exam: Present soft and tenderness (Mild, epigastric) Extremities Exam Extremities exam: Present normal inspection Neurological Exam Neurological exam: Present alert Psychiatric Psychiatric exam: Present normal affect Skin Skin exam: Present warm and dry Medical Decision Making Chet Inquiry Pt receiving controlled substance: No Vital Signs: 01/23/24 15:30 01/23/24 15:49 Temperature 98.1 F Temperature Source Oral Pulse Rate 85 Respiratory Rate 16 20 Blood Pressure [Right Arm] 167/83 H Blood Pressure Mean [Right Arm] 111 02 Sat by Pulse Oximetry 95 Oxygen Delivery Method Room Air Room Air Lab Data Lab Results 01/23/24 15:45: WBC 4.8, RBC 3.15 L, Hgb 10.7 L, Hct 32.1 L, MCV 101.9 H, MCH 33.8 H, MCHC 33.2, RDW 15.1, Plt Count 220, MPV 7.8, Neut % (Auto) 61.8, Lymph % (Auto) 28.9, Hanson % (Auto) 7.5, Eos % (Auto) 0.9, Baso % (Auto) 0.8, Neut # (Auto) 3.0, Lymph # (Auto) 1.4, Hanson # (Auto) 0.4, Eos # (Auto) 0.1, Baso # (Auto) 0.0, Sodium 134 L, Potassium 4.6, Chloride 102, Carbon Dioxide 24, Anion Gap 12.6, BUN 15, Creatinine 0.70, Estimated Creat Clear 39, Estimated GFR 82, Est GFR ( Amer) 99, Glucose 156 H, Calcium 9.6, Total Bilirubin 0.3, AST 32, ALT 42, Alkaline Phosphatase 74, Troponin I < 0.01, Total Protein 7.0, Albumin 4.6, Globulin 2.4, Albumin/Globulin Ratio 1.9 H, Lipase 45, Urine Color Yellow, Urine Appearance Clear, Urine pH 6.0, Ur Specific [place] <= 1.005, Urine Protein Negative, Urine Glucose (UA) Negative, Urine Ketones Negative, Urine Blood Negative, Urine Nitrate Negative, Urine Bilirubin Negative, Urine Urobilinogen 0.2, Ur Leukocyte Esterase Trace, Urine WBC 5-10 01/23/24 15:45 01/23/24 15:45 Orders (Tests/Meds): ED MEDICATIONS Discontinued Medications Generic Name Dose Route Start Last Admin Trade Name Freq PRN Reason Stop Dose Admin Acetaminophen 1,000 mg 01/23/24 15:36 01/23/24 15:51 Acetaminophen 1,000mg/100ml Vial IV 01/23/24 15:37 1,000 mg ONCE ONE Administration Belladonna Alkaloids 60 ml 01/23/24 15:36 01/23/24 15:50 Belladonna Alkaloids 60 Ml Ml PO 01/23/24 15:37 60 ml ONCE ONE Administration Dicyclomine HCl 20 mg 01/23/24 15:36 01/23/24 15:50 Dicyclomine 10mg Capsule PO 01/23/24 15:37 20 mg ONCE ONE Administration ORDERS Category Date Time Status CBC w/Auto Diff [Complete Blood Count Auto Diff] Stat Lab 01/23/24 15:45 Completed CMP [Comprehensive Metabolic Panel] Stat Lab 01/23/24 15:45 Completed Lipase Stat Lab 01/23/24 15:45 Completed Trop I [Troponin I] Stat Lab 01/23/24 15:45 Completed Troponin I Q3H Lab 01/23/24 18:45 Ordered Troponin I Q3H Lab 01/23/24 21:45 Ordered UA [Urinalysis and Microscopic] Stat Lab 01/23/24 15:45 Completed EKG Request [ECG Request] Stat Y 01/23/24 15:42 Ordered ECG Data Tracing #1: Independently interpreted by me rate is 69, rhythm is regular, V paced, no excessive discordance, Sgarbossa negative, QTc 459. Medical Decision Narrative: In summary patient is a 73-year-old female past medical history described above who presents emergency department for evaluation of chronic epigastric abdominal pain. Patient is hemodynamically stable and nontoxic-appearing upon arrival, afebrile. She is tearful at bedside and appears in pain however once you get her off on a tangent conversation this ceases, this makes it difficult to ascertain if this is true pathology which is yet to be evaluated by door attendant versus secondary gain. She has an appointment with her door attendant this coming month on the , she has never been seen by door attendant by this therefore the importance of this appointment was stressed upon her. Patient has a recent CT scan which showed no acute pathology, she does have a moderate hiatal hernia which is evidence on the CT scan however was not strangulated at that time and patient has no symptoms consistent with obstruction. Differential includes chronic pancreatitis, symptomatic hiatal hernia, peptic ulcer disease, among others. Workup will be conducted with hematologic labs and urinalysis. Utility of CT imaging was considered however patient has had CTA, CT with within the last few months and had CT with approximately 5 days ago therefore will currently be deferred at this time. Initial interventions include multimodal pain control. Initial workup reviewed by me, hematologic labs are nonactionable, anemia is at baseline, no leukocytosis. No MAX or critical electrolyte abnormality, mild hyponatremia which does not require intervention at this time. Initial troponin undetectably low, I have little concern for atypical ACS. Urinalysis interpreted by me and not consistent with infection. Upon repeat evaluation patient was at her baseline, tolerating p.o. and is appropriate for outpatient management at this time. She will certainly benefit from endoscopy at this point to exclude alternative etiology. Critical Care Critical Care Time Critical Care Time: No
[2024-01-23 15:49] VITALS: PULSE 85; RESP 20
[2024-01-23] MEDS: DICYCLOMINE 10MG CAPSULE 20 MG PO (15:50)
[2024-01-23] MEDS: BELLADONNA ALKALOIDS 60 ML ML PO (15:50)
[2024-01-23] MEDS: ACETAMINOPHEN 1,000MG/100ML VIAL 1000 MG IV (15:51)
[2024-01-23 15:52] LABS: Basophils % 0.8 % (0.1-2.0); Eosinophils # 0.1 K/mm3 (0.0-0.4); Eosinophils % 0.9 % (0.1-12.0); Hematocrit 32.1 % (37.0-47.0); Hemoglobin 10.7 g/dL (12.2-16.2); Lymphocytes # 1.4 K/mm3 (0.7-4.5); Lymphocytes % 28.9 % (10-50); Mean Corpuscular HGB Conc 33.2 g/dL (31.8-35.4); Mean Corpuscular Hemoglobin 33.8 pg (27.0-31.2); Mean Corpuscular Volume 101.9 fl (81-99); Mean Platelet Volume 7.8 fl (7.4-10.4); Monocytes # 0.4 K/mm3 (0.1-1.0); Monocytes % 7.5 % (1.7-9.3); Neutrophils % 61.8 % (37.0-80.0); Platelet Count 220 K/mm3 (142-424); Red Blood Count 3.15 M/mm3 (4.20-5.40); Red Cell Distribution Width 15.1 % (11.5-17.5); White Blood Count 4.8 K/mm3 (4.8-10.8)
[2024-01-23 15:56] LABS: Chloride 102 mmol/L (98-107); Potassium 4.6 mmoL/L (3.5-5.1); Sodium 134 mmol/L (136-145)
[2024-01-23 15:58] LABS: Blood Urea Nitrogen 15 mg/dl (7-17); Creatinine Clearance Estimated 39 mL/min (50-200); Estimated Glomerular Filt Rate 82 ml/min (>60); GFR (African American) 99 ML/MIN (>60)
[2024-01-23 15:59] LABS: Alanine Aminotransferase 42 U/L (12-78); Albumin Level 4.6 g/dl (3.5-5.0); Albumin/Globulin Ratio 1.9 (1.1-1.8); Alkaline Phosphatase 74 U/L (38-126); Anion Gap 12.6 mEq/L (5-15); Aspartate Amino Transferase 32 U/L (14-36); Bilirubin,Total 0.3 mg/dl (0.2-1.3); Calcium 9.6 mg/dl (8.4-10.2); Carbon Dioxide 24 mmol/L (22.0-30.0); Globulin 2.4 g/dL (1.3-3.2); Glucose 156 mg/dl (74-100); Lipase 45 U/L (23-300)
--- NOTE | 2024-01-23 16:02 | ECG_ITS ---
APPROVED REPORT Exam: Resting ECG HR:69 bpm ECG Measurements Heart Rate 69 AXES OR 128 P 18 QRSd 172 QRS -53 QT 439 T 114 QTc 459 Conclusion ELECTRONIC VENTRICULAR PACEMAKER ABNORMAL RHYTHM ECG Electronically signed by : YAMILET ROONEY, 01/23/2024 23:13:55
[2024-01-23 16:11] LABS: Troponin I < 0.01 ng/ml (0.00-0.034)
[2024-01-23 16:23] LABS: Microscopic, Urine URINE MICROSCOPIC (MICROSCOPIC)
[2024-01-23 16:24] LABS: Appearance,Urine CLEAR (Clear); Bilirubin,Urine Negative (Negative); Blood, Urine Negative (Negative); Glucose,Urine (UA) Negative (Negative); Ketones,Urine Negative (Negative); Leukocyte Esterase,Urine TRACE (Negative); Nitrate,Urine Negative (Negative); Protein,Urine Negative (Negative); Specific Gravity, Urine <= 1.005 (1.005-1.030); Urobilinogen,Urine 0.2 EU/dl (0.2)
[2024-01-23 16:26] LABS: Color,Urine Yellow (Yellow)
[2024-01-23 16:56] VITALS: BP 163/75; PULSE 72; RESP 16; TEMP 36.8; O2SAT 98
== END 2024-01-23 17:01 | disposition home or self-care (01) ==
PROVIDERS: Emergency Provider Emergency Medicine
DX: R10.13 Epigastric pain (principal); G89.29 Other chronic pain; F45.42 Pain disorder with related psychological factors; R41.89 Other symptoms and signs involving cognitive functions and awareness; E11.9 Type 2 diabetes mellitus without complications; K21.9 Gastro-esophageal reflux disease without esophagitis; I65.29 Occlusion and stenosis of unspecified carotid artery; I11.9 Hypertensive heart disease without heart failure; I25.10 Atherosclerotic heart disease of native coronary artery without angina pectoris; Z95.1 Presence of aortocoronary bypass graft; Z95.0 Presence of cardiac pacemaker; Z79.84 Long term (current) use of oral hypoglycemic drugs
CPT/HCPCS: 80053; 81001; 83690; 84484; 85025; 93005; 96374; 99284; J0131

== ENCOUNTER 2024-01-24 16:33 | Emergency (ER) | payer MEDICARE, OTHER, SELFPAY ==
[2024-01-24 16:35] VITALS: BP 140/64; PULSE 67; RESP 15; TEMP 36.6; O2SAT 98; BMI 22.6
--- NOTE | 2024-01-24 17:04 | [facility]H.EDGENADL ---
Discharge Plan Disposition Patient Disposition: Home, Self-Care Chief Complaint: Abdominal Pain Prescriptions Prescriptions: No Action fluticasone propionate 50 mcg/actuation spray,suspension intranasal venlafaxine 37.5 mg tablet 37.5 mg PO BID metformin 500 mg tablet 500 mg PO BID quetiapine [Seroquel] 50 mg tablet 50 mg PO HS Linzess 145 mcg capsule 72 mcg PO DAILY linaclotide 72 mcg capsule 72 mcg PO DAILY metoprolol succinate 50 mg tablet extended release 24 hr See Rx Instructions .ROUTE .COMPLEX Qty: 90 3RF Dose Instruction: TAKE ONE TABLET BY MOUTH ONCE A DAY FOR HIGH BLOOD PRESSURE Rx Instructions: TAKE ONE TABLET BY MOUTH ONCE A DAY FOR HIGH BLOOD PRESSURE amlodipine 5 mg tablet 5 mg PO DAILY Qty: 30 2RF clopidogrel [Plavix] 75 mg tablet 75 mg PO DAILY Qty: 90 1RF gabapentin 100 mg capsule 200 mg PO HS Qty: 60 2RF acetaminophen [Pain Relief ES (acetaminophen)] 500 mg tablet 500 - 1,000 mg PO Q6HP PRN (Reason: Pain) diazepam 2 mg tablet 2 mg PO TID PRN (Reason: Anxiety) 30 Days Qty: 90 0RF omeprazole 20 mg capsule,delayed release(DR/EC) 20 mg PO DAILY calcium carbonate-vitamin D3 500 mg-2.5 mcg (100 unit) tablet,chewable 1 tab PO BID cholecalciferol (vitamin D3) 50 mcg (2,000 unit) tablet 2,000 unit PO DAILY atorvastatin 40 mg tablet 40 mg PO DAILY isosorbide mononitrate 30 mg tablet extended release 24 hr 30 mg PO DAILY famotidine 20 mg tablet 20 mg PO DAILY aspirin 81 mg tablet,chewable 81 mg PO DAILY alendronate 70 mg tablet 70 mg PO WEEKLY ondansetron 4 mg Tablet,Disintegrating 4 mg PO Q8H PRN (Reason: Nausea) Qty: 12 0RF Referrals Follow up/Referrals: Provider,Referral, MD [Primary Care Provider] - See instructions Activity Restrictions/Add. Instructions Additional Instructions/Restrictions: Please follow-up with your chief lifestyle officer as discussed. You will really benefit from going to see their opinion. Clinical Impressions Clinical Impression: Chronic abdominal pain Instructions Patient Instructions: DI for Acute Abdominal Pain Discharge ED Provider: Kamlesh Wei General Adult HPI General Chief complaint: Abdominal Pain Stated complaint: Abd Pain Time Seen by Provider: 01/24/24 16:57 History of Present Illness HPI narrative: Patient is a 73-year-old female very well-known to this emergency department who presents emergency department for evaluation of epigastric pain. It is not worse than normal, she has no other changing features today, she is going to maintain her appointment with gastroenterology this coming month however due to persistent symptoms as a result she presents here for continued evaluation. No new vomiting, stooling is at baseline. No chest pain reported. No other acute complaints Related Data Home Medications Medication Instructions Recorded Confirmed venlafaxine 37.5 mg tablet 37.5 mg PO BID mood 07/26/17 01/17/24 metformin 500 mg tablet 500 mg PO BID 05/13/18 01/17/24 quetiapine 50 mg tablet (Seroquel) 50 mg PO HS 12/13/18 01/17/24 acetaminophen 500 mg tablet (Pain 500 - 1,000 mg PO Q6HP PRN Pain 09/24/22 01/17/24 Relief Extra Strength (acetaminophen)) aspirin 81 mg chewable tablet 81 mg PO DAILY 07/21/23 01/17/24 atorvastatin 40 mg tablet 40 mg PO DAILY 07/21/23 01/17/24 calcium carbonate 500 mg-vitamin 1 tab PO BID 07/21/23 01/17/24 D3 2.5 mcg (100 unit) chewable tablet cholecalciferol (vitamin D3) 50 2,000 unit PO DAILY 07/21/23 01/17/24 mcg (2,000 unit) tablet famotidine 20 mg tablet 20 mg PO DAILY 07/21/23 01/17/24 isosorbide mononitrate 30 mg 30 mg PO DAILY 07/21/23 01/17/24 tablet,extended release 24 hr omeprazole 20 mg capsule,delayed 20 mg PO DAILY 07/21/23 01/17/24 release fluticasone propionate 50 intranasal 12/15/23 01/17/24 mcg/actuation nasal spray,suspension alendronate 70 mg tablet 70 mg PO WEEKLY 01/15/24 01/17/24 linaclotide 145 mcg capsule 72 mcg PO DAILY constipation 01/17/24 (Linzess) linaclotide 72 mcg capsule 72 mcg PO DAILY 01/17/24 01/17/24 Previous Rx's Medication Instructions Recorded diazepam 2 mg tablet 2 mg PO TID PRN Anxiety 30 days 03/03/23 #90 tabs metoprolol succinate 50 mg See Rx Instructions .Route 10/11/23 tablet,extended release 24 hr .COMPLEX #90 tabs amlodipine 5 mg tablet 5 mg PO DAILY #30 tabs 12/03/23 clopidogrel 75 mg tablet (Plavix) 75 mg PO DAILY #90 tabs 12/10/23 gabapentin 100 mg capsule 200 mg (2 x 100 mg) PO HS #60 caps 01/10/24 ondansetron 4 mg disintegrating 4 mg PO Q8H PRN Nausea #12 tabs 01/15/24 tablet Allergies Allergy/AdvReac Type Severity Reaction Status Date / Time codeine [CODEINE] Allergy Unknown WEAK Verified 01/17/24 15:16 hydrochlorothiazide Allergy Unknown I-RASH Verified 01/17/24 15:16 [HYDROCHLOROTHIAZIDE] hydrocodone [HYDROCODONE] Allergy Unknown I-RASH Verified 01/17/24 15:16 metoclopramide Allergy Unknown SLURRED Verified 01/17/24 15:16 [METOCLOPRAMIDE] SPEECH, WEAK nifedipine [NIFEDIPINE] Allergy Unknown I-HIVES Verified 01/17/24 15:16 prazosin [PRAZOSIN] Allergy Unknown ITCHING/WEA Verified 01/17/24 15:16 K triamterene [TRIAMTERENE] Allergy Unknown I-RASH Verified 01/17/24 15:16 PFSH PFS Disclaimer: The information contained in this section may have been updated after the patient was seen, as this information can be updated by other users. Medical History Type 2 diabetes mellitus Anxiety Gastro-esophageal reflux disease without esophagitis Grief reaction Stricture and stenosis of esophagus Esophageal thickening Esophageal thickening Femur fracture, left History of left heart catheterization Coronary artery disease Carotid artery stenosis Surgical History History of permanent cardiac pacemaker placement S/P CABG x 1 Status post aortic valve replacement with bioprosthetic valve Family History Other Family history of cancer Family history of diabetes mellitus type II Family history of hypertension Family history of myocardial infarction Social History Smoking Status: Never smoker second hand exposure: Yes alcohol intake: never substance use type: denies use current occupational status: retired Travel in the last 8 weeks: None household members: none housing: apartment lives independently: Yes marital status: single education level: middle school service: No mcfp: No current occupational exposures/hazards: No caffeine: Yes do you feel safe at home: Yes victim of physical abuse: No victim of emotional abuse: No victim of sexual abuse: No would you like helpful sources: No ROS Obtained: Yes Systems reviewed as appropriate & no additional complaints except as documented Physical Exam General General appearance: alert and in no apparent distress Head Head exam: atraumatic and normocephalic Eye Eye exam: Present PERRL and EOMI ENT ENT exam: Present mucous membranes moist Neck Neck exam: Present normal inspection Chest Chest inspection: Present normal inspection and symmetric chest wall rise Respiratory Respiratory exam: Absent respiratory distress Cardiovascular Cardiovascular exam: Present regular rate and normal rhythm Abdominal Exam Abdominal exam: Present soft; Absent tenderness, guarding or rebound Extremities Exam Extremities exam: Present normal inspection Neurological Exam Neurological exam: Present alert Psychiatric Psychiatric exam: Present normal affect Skin Skin exam: Present warm and dry Medical Decision Making Chet Inquiry Pt receiving controlled substance: No Vital Signs: 01/24/24 16:35 Temperature 97.9 F Temperature Source Oral Pulse Rate [Left Radial] 67 Respiratory Rate 15 Blood Pressure [Right Arm] 140/64 Blood Pressure Mean [Right Arm] 89 02 Sat by Pulse Oximetry 98 Oxygen Delivery Method Room Air Lab Data Lab Results 01/24/24 17:20: WBC 5.1, RBC 3.15 L, Hgb 10.4 L, Hct 31.6 L, MCV 100.5 H, MCH 33.0 H, MCHC 32.8, RDW 14.9, Plt Count 238, MPV 7.9, Neut % (Auto) 64.3, Lymph % (Auto) 27.2, Martin % (Auto) 6.7, Eos % (Auto) 1.1, Baso % (Auto) 0.7, Neut # (Auto) 3.3, Lymph # (Auto) 1.4, Martin # (Auto) 0.3, Eos # (Auto) 0.1, Baso # (Auto) 0.0, Sodium 132 L, Potassium 4.9, Chloride 100, Carbon Dioxide 28, Anion Gap 8.9, BUN 15, Creatinine 0.70, Estimated Creat Clear 40, Estimated GFR 82, Est GFR ( Amer) 99, Glucose 120 H, Calcium 9.7, Total Bilirubin 0.3, AST 29, ALT 36, Alkaline Phosphatase 68, Total Protein 6.6, Albumin 4.3, Globulin 2.3, Albumin/Globulin Ratio 1.9 H, Lipase 44 01/24/24 17:20 01/24/24 17:20 Orders (Tests/Meds): ED MEDICATIONS Discontinued Medications Generic Name Dose Route Start Last Admin Trade Name Freq PRN Reason Stop Dose Admin Acetaminophen 1,000 mg 01/24/24 16:57 01/24/24 17:29 Acetaminophen 1,000mg/100ml Vial IV 01/24/24 16:58 Not Given ONCE ONE Acetaminophen 1,000 mg 01/24/24 17:29 01/24/24 17:37 Acetaminophen 500mg Tab PO 01/24/24 17:30 1,000 mg ONCE ONE Administration Belladonna Alkaloids 60 ml 01/24/24 17:29 01/24/24 17:37 Belladonna Alkaloids 60 Ml Ml PO 01/24/24 17:30 60 ml ONCE ONE Administration Ondansetron HCl 4 mg 01/24/24 16:57 01/24/24 17:29 Ondansetron 4mg/2ml Vial IV 01/24/24 16:58 Not Given ONCE ONE Ondansetron HCl 4 mg 01/24/24 17:29 01/24/24 17:38 Ondansetron 4mg Odt SL 01/24/24 17:30 4 mg ONCE ONE Administration ORDERS Category Date Time Status CBC w/Auto Diff [Complete Blood Count Auto Diff] Stat Lab 01/24/24 17:20 Completed CMP [Comprehensive Metabolic Panel] Stat Lab 01/24/24 17:20 Completed Lipase Stat Lab 01/24/24 17:20 Completed Medical Decision Narrative: In summary patient is 73-year-old female past medical history described above who presents emergency department for evaluation of chronic epigastric pain. Patient is hemodynamically stable nontoxic-appearing upon arrival, afebrile. She is at her baseline, he is actually less tearful and in less pain than she normally is. Limited workup we conducted with hematologic labs, EKG, single troponin. Patient will significantly benefit from her upcoming GI appointment. She has had multimodal gastrointestinal imaging here within the last few months of all modalities except for MRI. I do not think that she would benefit from imaging specifically therefore it was considered but will be deferred at today. Initial workup reviewed by me, hematologic labs are nonactionable, she has chronic anemia, no leukocytosis, no MAX or critical electrolyte abnormality, hyponatremia which is currently nonactionable, lipase normal. On repeat evaluation patient tolerated p.o. bedside, was well-appearing and is appropriate for outpatient management. Critical Care Critical Care Time Critical Care Time: No
[2024-01-24 17:34] LABS: Basophils % 0.7 % (0.1-2.0); Eosinophils # 0.1 K/mm3 (0.0-0.4); Eosinophils % 1.1 % (0.1-12.0); Hematocrit 31.6 % (37.0-47.0); Hemoglobin 10.4 g/dL (12.2-16.2); Lymphocytes # 1.4 K/mm3 (0.7-4.5); Lymphocytes % 27.2 % (10-50); Mean Corpuscular HGB Conc 32.8 g/dL (31.8-35.4); Mean Corpuscular Volume 100.5 fl (81-99); Mean Platelet Volume 7.9 fl (7.4-10.4); Monocytes # 0.3 K/mm3 (0.1-1.0); Monocytes % 6.7 % (1.7-9.3); Neutrophils # 3.3 K/mm3 (1.8-7.8); Neutrophils % 64.3 % (37.0-80.0); Platelet Count 238 K/mm3 (142-424); Red Blood Count 3.15 M/mm3 (4.20-5.40); Red Cell Distribution Width 14.9 % (11.5-17.5); White Blood Count 5.1 K/mm3 (4.8-10.8)
[2024-01-24 17:37] LABS: Chloride 100 mmol/L (98-107); Potassium 4.9 mmoL/L (3.5-5.1); Sodium 132 mmol/L (136-145)
[2024-01-24] MEDS: ACETAMINOPHEN 500MG TAB 1000 MG PO (17:37)
[2024-01-24] MEDS: BELLADONNA ALKALOIDS 60 ML ML PO (17:37)
[2024-01-24] MEDS: ONDANSETRON 4MG ODT 4 MG SL (17:38)
[2024-01-24 17:40] LABS: Alanine Aminotransferase 36 U/L (12-78); Albumin Level 4.3 g/dl (3.5-5.0); Albumin/Globulin Ratio 1.9 (1.1-1.8); Alkaline Phosphatase 68 U/L (38-126); Anion Gap 8.9 mEq/L (5-15); Aspartate Amino Transferase 29 U/L (14-36); Bilirubin,Total 0.3 mg/dl (0.2-1.3); Blood Urea Nitrogen 15 mg/dl (7-17); Calcium 9.7 mg/dl (8.4-10.2); Carbon Dioxide 28 mmol/L (22.0-30.0); Creatinine Clearance Estimated 40 mL/min (50-200); Estimated Glomerular Filt Rate 82 ml/min (>60); GFR (African American) 99 ML/MIN (>60); Globulin 2.3 g/dL (1.3-3.2); Glucose 120 mg/dl (74-100); Lipase 44 U/L (23-300); Total Protein,Serum 6.6 g/dl (6.3-8.2)
[2024-01-24 18:53] VITALS: BP 138/77; PULSE 64; RESP 16; O2SAT 99
[2024-01-24 19:06] VITALS: BP 138/77; PULSE 64; RESP 16; TEMP 36.6; O2SAT 99
== END 2024-01-24 19:08 | disposition home or self-care (01) ==
PROVIDERS: Emergency Provider Emergency Medicine
DX: R10.13 Epigastric pain (principal); G89.29 Other chronic pain; E87.1 Hypo-osmolality and hyponatremia; F45.42 Pain disorder with related psychological factors; R41.89 Other symptoms and signs involving cognitive functions and awareness; E11.9 Type 2 diabetes mellitus without complications; K21.9 Gastro-esophageal reflux disease without esophagitis; I11.9 Hypertensive heart disease without heart failure; I25.10 Atherosclerotic heart disease of native coronary artery without angina pectoris; Z95.1 Presence of aortocoronary bypass graft; Z95.0 Presence of cardiac pacemaker; Z79.84 Long term (current) use of oral hypoglycemic drugs
CPT/HCPCS: 80053; 83690; 85025; 96374; 96375; 99284; J0131; J2405

== ENCOUNTER 2024-02-19 15:31 | Emergency (ER) | payer MEDICARE, OTHER, SELFPAY ==
[2024-02-19 15:33] VITALS: BP 171/76; PULSE 79; RESP 18; TEMP 36.9; O2SAT 97; BMI 22.8
[2024-02-19 15:37] VITALS: BP 171/76; PULSE 79; O2SAT 95
[2024-02-19 15:40] VITALS: BP 160/79; PULSE 78; O2SAT 96
[2024-02-19 15:46] LABS: Microscopic, Urine URINE MICROSCOPIC (MICROSCOPIC)
--- NOTE | 2024-02-19 15:47 | PC.NURSE ---
DR GUZMÁN AT BEDSIDE
[2024-02-19 15:50] VITALS: BP 161/74; PULSE 72; O2SAT 97
[2024-02-19 15:53] LABS: Appearance,Urine CLEAR (Clear); Bilirubin,Urine Negative (Negative); Blood, Urine TRACE-I (Negative); Color,Urine YELLOW (Yellow); Glucose,Urine (UA) Negative (Negative); Ketones,Urine Negative (Negative); Leukocyte Esterase,Urine Negative (Negative); Nitrate,Urine Negative (Negative); Protein,Urine Negative (Negative); Specific Gravity, Urine <= 1.005 (1.005-1.030); Urobilinogen,Urine 0.2 EU/dl (0.2)
--- NOTE | 2024-02-19 15:57 | HMH.EDGENADL ---
Discharge Plan Disposition Patient Disposition: Home, Self-Care Condition: Good Prescriptions Prescriptions: No Action fluticasone propionate 50 mcg/actuation spray,suspension intranasal venlafaxine 37.5 mg tablet 37.5 mg PO BID metformin 500 mg tablet 500 mg PO BID metoprolol succinate 50 mg tablet extended release 24 hr See Rx Instructions .ROUTE .COMPLEX Qty: 90 3RF Dose Instruction: TAKE ONE TABLET BY MOUTH ONCE A DAY FOR HIGH BLOOD PRESSURE Rx Instructions: TAKE ONE TABLET BY MOUTH ONCE A DAY FOR HIGH BLOOD PRESSURE clopidogrel [Plavix] 75 mg tablet 75 mg PO DAILY Qty: 90 1RF gabapentin 100 mg capsule 200 mg PO HS Qty: 60 2RF Linzess 72 mcg capsule 72 mcg PO DAILY Qty: 30 2RF polyethylene glycol 3350 [Miralax] 17 gram/dose powder 17 g PO DAILY Qty: 510 3RF amlodipine 5 mg tablet 5 mg PO DAILY Qty: 30 5RF quetiapine [Seroquel] 50 mg tablet 50 mg PO HS Qty: 90 1RF diazepam 2 mg tablet 2 mg PO TID Qty: 90 2RF ondansetron 4 mg tablet,disintegrating See Rx Instructions .ROUTE .COMPLEX Qty: 30 1RF Dose Instruction: DISSOLVE 1 TABLET ON THE TONGUE EVERY 8 HOURS NEEDED FOR NAUSEA/VOMITING Rx Instructions: DISSOLVE 1 TABLET ON THE TONGUE EVERY 8 HOURS NEEDED FOR NAUSEA/VOMITING acetaminophen [Pain Relief ES (acetaminophen)] 500 mg tablet 500 - 1,000 mg PO Q6HP PRN (Reason: Pain) omeprazole 20 mg capsule,delayed release(DR/EC) 20 mg PO DAILY calcium carbonate-vitamin D3 500 mg-2.5 mcg (100 unit) tablet,chewable 1 tab PO BID cholecalciferol (vitamin D3) 50 mcg (2,000 unit) tablet 2,000 unit PO DAILY atorvastatin 40 mg tablet 40 mg PO DAILY isosorbide mononitrate 30 mg tablet extended release 24 hr 30 mg PO DAILY famotidine 20 mg tablet 20 mg PO DAILY aspirin 81 mg tablet,chewable 81 mg PO DAILY alendronate 70 mg tablet 70 mg PO WEEKLY Referrals Follow up/Referrals: Bill Spencer MD [Staff Physician] - See instructions Hansel Ruff MD [Primary Care Provider] - See instructions Ethel Adam APRN [Staff Physician] - See instructions Rupali Carrero APRN [Nurse Practitioner] - See instructions Activity Restrictions/Add. Instructions Additional Instructions/Restrictions: You were evaluated in the emergency department today. Please follow-up very closely with your team as an outpatient, including your primary care provider, industrial safety and health manager, behavioral health specialist, and with pain management. Please take your medications at home as prescribed previously. Return to the emergency department if you have new symptoms that are different from your chronic abdominal pain. You have an appointment with GI ([facility]) 03/02/24 at 11:45am. Clinical Impressions Clinical Impression: Chronic abdominal pain Instructions Patient Instructions: DI for Acute Abdominal Pain, DI for Chronic Pain -- Adult Print Language Print Language: [place] Discharge ED Provider: Glenys Hassan General Adult HPI General Chief complaint: Abdominal Pain Stated complaint: abd pain Time Seen by Provider: 02/19/24 15:33 Mode of Arrival: Ambulatory Limitations: No Limitations Description of Symptoms (Recalled from ER Triage Doc. by RN): PT REPORTS ONGOING DIFFUSE ABDOMINAL PAIN History of Present Illness HPI narrative: This patient is a 73-year-old female with a history of chronic abdominal pain presented to the emergency department for evaluation with concern for ongoing abdominal pain. She states that it is unchanged from prior pain. She said no new symptoms such as fevers, chills, nausea, vomiting, changes in bowel movements, urinary symptoms, or other concerns. She notes that it feels identical to the previous pains that she is been evaluated for here in the past. She has seen us in the ER, behavioral health, primary care, and GI for the symptoms and she is awaiting outpatient pain management referral. She told me that GI told her there is nothing they can do because it is in the muscles . Related Data Home Medications ?Medication ?Instructions ?Recorded ?Confirmed venlafaxine 37.5 mg tablet 37.5 mg PO BID mood 07/26/17 01/17/24 metformin 500 mg tablet 500 mg PO BID 05/13/18 01/17/24 acetaminophen 500 mg tablet (Pain 500 - 1,000 mg PO Q6HP PRN Pain 09/24/22 01/17/24 Relief Extra Strength (acetaminophen)) aspirin 81 mg chewable tablet 81 mg PO DAILY 07/21/23 01/17/24 atorvastatin 40 mg tablet 40 mg PO DAILY 07/21/23 01/17/24 calcium carbonate 500 mg-vitamin 1 tab PO BID 07/21/23 01/17/24 D3 2.5 mcg (100 unit) chewable tablet cholecalciferol (vitamin D3) 50 2,000 unit PO DAILY 07/21/23 01/17/24 mcg (2,000 unit) tablet famotidine 20 mg tablet 20 mg PO DAILY 07/21/23 01/17/24 isosorbide mononitrate 30 mg 30 mg PO DAILY 07/21/23 01/17/24 tablet,extended release 24 hr omeprazole 20 mg capsule,delayed 20 mg PO DAILY 07/21/23 01/17/24 release fluticasone propionate 50 intranasal 12/15/23 01/17/24 mcg/actuation nasal spray,suspension alendronate 70 mg tablet 70 mg PO WEEKLY 01/15/24 01/17/24 Previous Rx's ?Medication ?Instructions ?Recorded metoprolol succinate 50 mg See Rx Instructions .Route 10/11/23 tablet,extended release 24 hr .COMPLEX #90 tabs clopidogrel 75 mg tablet (Plavix) 75 mg PO DAILY #90 tabs 12/10/23 gabapentin 100 mg capsule 200 mg (2 x 100 mg) PO HS #60 caps 01/10/24 linaclotide 72 mcg capsule 72 mcg PO DAILY #30 caps 02/02/24 (Linzess) polyethylene glycol 3350 17 17 g PO DAILY #510 grams 02/10/24 gram/dose oral powder (Miralax) amlodipine 5 mg tablet 5 mg PO DAILY #30 tabs 02/11/24 quetiapine 50 mg tablet (Seroquel) 50 mg PO HS #90 tabs 02/12/24 diazepam 2 mg tablet 2 mg PO TID #90 tabs 02/14/24 ondansetron 4 mg disintegrating See Rx Instructions .Route 02/16/24 tablet .COMPLEX #30 tabs Allergies Allergy/AdvReac Type Severity Reaction Status Date / Time codeine [CODEINE] Allergy Unknown WEAK Verified 01/17/24 15:16 hydrochlorothiazide Allergy Unknown I-RASH Verified 01/17/24 15:16 [HYDROCHLOROTHIAZIDE] hydrocodone [HYDROCODONE] Allergy Unknown I-RASH Verified 01/17/24 15:16 metoclopramide Allergy Unknown SLURRED Verified 01/17/24 15:16 [METOCLOPRAMIDE] SPEECH, WEAK nifedipine [NIFEDIPINE] Allergy Unknown I-HIVES Verified 01/17/24 15:16 prazosin [PRAZOSIN] Allergy Unknown ITCHING/WEA Verified 01/17/24 15:16 K triamterene [TRIAMTERENE] Allergy Unknown I-RASH Verified 01/17/24 15:16 [facility] Disclaimer: The information contained in this section may have been updated after the patient was seen, as this information can be updated by other users. Medical History Type 2 diabetes mellitus Anxiety Gastro-esophageal reflux disease without esophagitis Grief reaction Stricture and stenosis of esophagus Esophageal thickening Esophageal thickening Femur fracture, left History of left heart catheterization Coronary artery disease Carotid artery stenosis Surgical History History of permanent cardiac pacemaker placement S/P CABG x 1 Status post aortic valve replacement with bioprosthetic valve Family History Other Family history of cancer Family history of diabetes mellitus type II Family history of hypertension Family history of myocardial infarction Social History Smoking Status: Never smoker second hand exposure: Yes alcohol intake: never substance use type: denies use current occupational status: retired Travel in the last 8 weeks: None household members: none housing: apartment lives independently: Yes marital status: single education level: middle school service: No group home: No current occupational exposures/hazards: No caffeine: Yes do you feel safe at home: Yes victim of physical abuse: No victim of emotional abuse: No victim of sexual abuse: No would you like helpful sources: No ROS Obtained: Yes All systems reviewed & no additional complaints except as documented Physical Exam General General appearance: alert and in no apparent distress Head Head exam: atraumatic and normocephalic Eye Eye exam: Present normal appearance, PERRL and EOMI ENT ENT exam: Present normal exam, normal oropharynx, mucous membranes moist and normal external ear exam Neck Neck exam: Present normal inspection, full ROM and trachea midline; Absent tenderness Chest Chest inspection: Present normal inspection and symmetric chest wall rise; Absent tenderness Respiratory Respiratory exam: Present normal lung sounds bilaterally; Absent respiratory distress, wheezes, stridor or accessory muscle use Cardiovascular Cardiovascular exam: Present regular rate and normal rhythm Abdominal Exam Abdominal exam: Present soft; Absent distention, tenderness or guarding Extremities Exam Extremities exam: Present normal inspection, full ROM and normal capillary refill; Absent tenderness or edema Back Exam Back exam: Present normal inspection and full ROM; Absent tenderness Neurological Exam Neurological exam: Present alert, oriented X3, CN II-XII intact and normal gait; Absent motor sensory deficit Psychiatric Psychiatric exam: Present normal affect and normal mood Skin Skin exam: Present warm and dry Medical Decision Making Medical Records Medical records reviewed: Yes I reviewed the patient's medical records. Chet Inquiry Pt receiving controlled substance: No Vital Signs: 02/19/24 15:33 02/19/24 15:37 02/19/24 15:40 Temperature 98.4 F Temperature Source Oral Pulse Rate 79 78 Pulse Rate [Radial] 79 Respiratory Rate 18 Blood Pressure 171/76 H 160/79 H Blood Pressure [Right Arm] 171/76 H Blood Pressure Mean [Right Arm] 107 Blood Pressure Source [Right Arm] Automatic Cuff Blood Pressure Position [Right Arm] Sitting 02 Sat by Pulse Oximetry 97 95 96 Oxygen Delivery Method Room Air 02/19/24 15:50 02/19/24 16:00 Temperature Temperature Source Pulse Rate 72 71 Pulse Rate [Radial] Respiratory Rate Blood Pressure 161/74 H 162/74 H Blood Pressure [Right Arm] Blood Pressure Mean [Right Arm] Blood Pressure Source [Right Arm] Blood Pressure Position [Right Arm] 02 Sat by Pulse Oximetry 97 97 Oxygen Delivery Method Lab Data Lab results reviewed: Yes I reviewed the patient's lab results. Lab Results 02/19/24 15:37: Urine Color Yellow, Urine Appearance Clear, Urine pH 6.0, Ur Specific [place] <= 1.005, Urine Protein Negative, Urine Glucose (UA) Negative, Urine Ketones Negative, Urine Blood Trace-i, Urine Nitrate Negative, Urine Bilirubin Negative, Urine Urobilinogen 0.2, Ur Leukocyte Esterase Negative, Urine RBC Occasional, Ur Squamous Epith Cells 3-5 Orders (Tests/Meds): ED MEDICATIONS Discontinued Medications Generic Name Dose Route Start Last Admin Trade Name Freq PRN Reason Stop Dose Admin Acetaminophen 650 mg 02/19/24 15:52 02/19/24 16:03 Acetaminophen 325mg Tab PO 02/19/24 15:53 650 mg ONCE ONE Administration Belladonna Alkaloids 60 ml 02/19/24 15:52 02/19/24 16:03 Belladonna Alkaloids 60 Ml Ml PO 02/19/24 15:53 60 ml ONCE ONE Administration ORDERS Category Date Time Status UA [Urinalysis and Microscopic] Stat Lab 02/19/24 15:37 Completed Medical Decision Narrative: In summary, this patient is a 73-year-old female presenting to the Emergency Department for evaluation of chronic abdominal pain. Ultimately, the patient has had extensive workup for this pain innumerable times in the ED as well as on outpatient basis. The pain is unchanged with no new features at all. Vitals are normal on cardiac telemetry, and abdominal exam is benign. Given this, I do not feel that labs or imaging are indicated. Patient was given GI cocktail as well as oral Tylenol for symptomatic improvement, and she states that she is ready to go home with plan for outpatient follow-up with GI as well as pain management. Strict return precautions were given. Critical Care Critical Care Time Critical Care Time: No
[2024-02-19 16:00] VITALS: BP 162/74; PULSE 71; O2SAT 97
[2024-02-19] MEDS: ACETAMINOPHEN 325MG TAB 650 MG PO (16:03)
[2024-02-19] MEDS: BELLADONNA ALKALOIDS 60 ML ML PO (16:03)
[2024-02-19 16:10] LABS: RBC,Urine Occasional #/hpf (0-3)
[2024-02-19 16:20] VITALS: BP 163/76; PULSE 68; RESP 18; TEMP 36.8; O2SAT 96
== END 2024-02-19 16:20 | disposition home or self-care (01) ==
PROVIDERS: Emergency Provider Emergency Medicine; PCP Internal Medicine
DX: R10.9 Unspecified abdominal pain (principal); G89.29 Other chronic pain; F45.42 Pain disorder with related psychological factors; R41.89 Other symptoms and signs involving cognitive functions and awareness; E11.9 Type 2 diabetes mellitus without complications; K21.9 Gastro-esophageal reflux disease without esophagitis; I65.29 Occlusion and stenosis of unspecified carotid artery; I11.9 Hypertensive heart disease without heart failure; I25.10 Atherosclerotic heart disease of native coronary artery without angina pectoris; Z95.1 Presence of aortocoronary bypass graft; Z95.0 Presence of cardiac pacemaker; Z79.84 Long term (current) use of oral hypoglycemic drugs
CPT/HCPCS: 81001; 99283

== ENCOUNTER 2024-02-21 13:26 | Emergency (ER) | payer MEDICARE, OTHER, SELFPAY ==
[2024-02-21 13:31] VITALS: BP 178/63; PULSE 70; RESP 16; TEMP 36.9; O2SAT 99; BMI 22.8
--- NOTE | 2024-02-21 14:06 | ED_ITS ---
<Statement entered by Glenys Hassan DO - 02/21/24 23:01> I was consulted by the [facility], and we discussed the complexity of the problems being addressed. I approved the treatment and management plan for this patient's care in the emergency department, thus performing a substantive portion of the medical decision making. Glenys Hassan DO Discharge Plan Disposition Patient Disposition: Home, Self-Care Condition: Good Prescriptions Prescriptions: No Action fluticasone propionate 50 mcg/actuation spray,suspension intranasal venlafaxine 37.5 mg tablet 37.5 mg PO BID metformin 500 mg tablet 500 mg PO BID metoprolol succinate 50 mg tablet extended release 24 hr See Rx Instructions .ROUTE .COMPLEX Qty: 90 3RF Dose Instruction: TAKE ONE TABLET BY MOUTH ONCE A DAY FOR HIGH BLOOD PRESSURE Rx Instructions: TAKE ONE TABLET BY MOUTH ONCE A DAY FOR HIGH BLOOD PRESSURE clopidogrel [Plavix] 75 mg tablet 75 mg PO DAILY Qty: 90 1RF gabapentin 100 mg capsule 200 mg PO HS Qty: 60 2RF Linzess 72 mcg capsule 72 mcg PO DAILY Qty: 30 2RF polyethylene glycol 3350 [Miralax] 17 gram/dose powder 17 g PO DAILY Qty: 510 3RF amlodipine 5 mg tablet 5 mg PO DAILY Qty: 30 5RF quetiapine [Seroquel] 50 mg tablet 50 mg PO HS Qty: 90 1RF diazepam 2 mg tablet 2 mg PO TID Qty: 90 2RF ondansetron 4 mg tablet,disintegrating See Rx Instructions .ROUTE .COMPLEX Qty: 30 1RF Dose Instruction: DISSOLVE 1 TABLET ON THE TONGUE EVERY 8 HOURS NEEDED FOR NAUSEA/VOMITING Rx Instructions: DISSOLVE 1 TABLET ON THE TONGUE EVERY 8 HOURS NEEDED FOR NAUSEA/VOMITING acetaminophen [Pain Relief ES (acetaminophen)] 500 mg tablet 500 - 1,000 mg PO Q6HP PRN (Reason: Pain) omeprazole 20 mg capsule,delayed release(DR/EC) 20 mg PO DAILY calcium carbonate-vitamin D3 500 mg-2.5 mcg (100 unit) tablet,chewable 1 tab PO BID cholecalciferol (vitamin D3) 50 mcg (2,000 unit) tablet 2,000 unit PO DAILY atorvastatin 40 mg tablet 40 mg PO DAILY isosorbide mononitrate 30 mg tablet extended release 24 hr 30 mg PO DAILY famotidine 20 mg tablet 20 mg PO DAILY aspirin 81 mg tablet,chewable 81 mg PO DAILY alendronate 70 mg tablet 70 mg PO WEEKLY Referrals Follow up/Referrals: Hansel Ruff MD [Primary Care Provider] - See instructions Activity Restrictions/Add. Instructions Additional Instructions/Restrictions: Follow-up with Dr. Ruff as scheduled return to the ER for any worsening signs or symptoms as needed. Clinical Impressions Clinical Impression: Chronic upper abdominal pain Instructions Patient Instructions: DI for Chronic Pain -- Adult Print Language Print Language: Colombian Discharge ED Provider: Edie Ceballos General Adult HPI General Chief complaint: Abdominal Pain Stated complaint: abdominal pain Time Seen by Provider: 02/21/24 14:05 Mode of Arrival: EMS Source of Information: Patient and EMS Limitations: No Limitations Description of Symptoms (Recalled from ER Triage Doc. by RN): pt presents to ED with c/o abdominal pain that began this am. pt reports she was able to have a bowel movement this am. History of Present Illness HPI narrative: Patient presents for evaluation of her chronic epigastric abdominal pain. Patient is well-known to the emergency department and has chronic epigastric abdominal pain of uncertain etiology. She has had numerous investigations and attempting to discern this however none of been fruitful. Patient reports no intolerance to oral intake no chest pain shortness of breath fever chills hemoptysis hematochezia melena nausea vomiting diarrhea. Related Data Home Medications ?Medication ?Instructions ?Recorded ?Confirmed venlafaxine 37.5 mg tablet 37.5 mg PO BID mood 07/26/17 01/17/24 metformin 500 mg tablet 500 mg PO BID 05/13/18 01/17/24 acetaminophen 500 mg tablet (Pain 500 - 1,000 mg PO Q6HP PRN Pain 09/24/22 01/17/24 Relief Extra Strength (acetaminophen)) aspirin 81 mg chewable tablet 81 mg PO DAILY 07/21/23 01/17/24 atorvastatin 40 mg tablet 40 mg PO DAILY 07/21/23 01/17/24 calcium carbonate 500 mg-vitamin 1 tab PO BID 07/21/23 01/17/24 D3 2.5 mcg (100 unit) chewable tablet cholecalciferol (vitamin D3) 50 2,000 unit PO DAILY 07/21/23 01/17/24 mcg (2,000 unit) tablet famotidine 20 mg tablet 20 mg PO DAILY 07/21/23 01/17/24 isosorbide mononitrate 30 mg 30 mg PO DAILY 07/21/23 01/17/24 tablet,extended release 24 hr omeprazole 20 mg capsule,delayed 20 mg PO DAILY 07/21/23 01/17/24 release fluticasone propionate 50 intranasal 12/15/23 01/17/24 mcg/actuation nasal spray,suspension alendronate 70 mg tablet 70 mg PO WEEKLY 01/15/24 01/17/24 Previous Rx's ?Medication ?Instructions ?Recorded metoprolol succinate 50 mg See Rx Instructions .Route 10/11/23 tablet,extended release 24 hr .COMPLEX #90 tabs clopidogrel 75 mg tablet (Plavix) 75 mg PO DAILY #90 tabs 12/10/23 gabapentin 100 mg capsule 200 mg (2 x 100 mg) PO HS #60 caps 01/10/24 linaclotide 72 mcg capsule 72 mcg PO DAILY #30 caps 02/02/24 (Linzess) polyethylene glycol 3350 17 17 g PO DAILY #510 grams 02/10/24 gram/dose oral powder (Miralax) amlodipine 5 mg tablet 5 mg PO DAILY #30 tabs 02/11/24 quetiapine 50 mg tablet (Seroquel) 50 mg PO HS #90 tabs 02/12/24 diazepam 2 mg tablet 2 mg PO TID #90 tabs 02/14/24 ondansetron 4 mg disintegrating See Rx Instructions .Route 02/16/24 tablet .COMPLEX #30 tabs Allergies Allergy/AdvReac Type Severity Reaction Status Date / Time codeine [CODEINE] Allergy Unknown WEAK Verified 01/17/24 15:16 hydrochlorothiazide Allergy Unknown I-RASH Verified 01/17/24 15:16 [HYDROCHLOROTHIAZIDE] hydrocodone [HYDROCODONE] Allergy Unknown I-RASH Verified 01/17/24 15:16 metoclopramide Allergy Unknown SLURRED Verified 01/17/24 15:16 [METOCLOPRAMIDE] SPEECH, WEAK nifedipine [NIFEDIPINE] Allergy Unknown I-HIVES Verified 01/17/24 15:16 prazosin [PRAZOSIN] Allergy Unknown ITCHING/WEA Verified 01/17/24 15:16 K triamterene [TRIAMTERENE] Allergy Unknown I-RASH Verified 01/17/24 15:16 [facility] Disclaimer: The information contained in this section may have been updated after the patient was seen, as this information can be updated by other users. Medical History Type 2 diabetes mellitus Anxiety Gastro-esophageal reflux disease without esophagitis Grief reaction Stricture and stenosis of esophagus Esophageal thickening Esophageal thickening Femur fracture, left History of left heart catheterization Coronary artery disease Carotid artery stenosis Surgical History History of permanent cardiac pacemaker placement S/P CABG x 1 Status post aortic valve replacement with bioprosthetic valve Family History Other Family history of cancer Family history of diabetes mellitus type II Family history of hypertension Family history of myocardial infarction Social History Smoking Status: Never smoker second hand exposure: Yes alcohol intake: never substance use type: denies use current occupational status: retired Travel in the last 8 weeks: None household members: none housing: apartment lives independently: Yes marital status: single education level: middle school service: No half-way: No current occupational exposures/hazards: No caffeine: Yes do you feel safe at home: Yes victim of physical abuse: No victim of emotional abuse: No victim of sexual abuse: No would you like helpful sources: No ROS Obtained: Yes Systems reviewed as appropriate & no additional complaints except as documented Physical Exam General General appearance: alert and in no apparent distress Respiratory Respiratory exam: Present normal lung sounds bilaterally Cardiovascular Cardiovascular exam: Present regular rate and normal rhythm Abdominal Exam Abdominal exam: Present soft, tenderness (Mildly tender to palpation in the epigastrium without rebound or guarding or rigidity.) and normal bowel sounds; Absent guarding, rebound or rigidity Neurological Exam Neurological exam: Present alert and oriented X3 Medical Decision Making Medical Records Medical records reviewed: Yes I reviewed the patient's medical records. Chet Inquiry Pt receiving controlled substance: No Vital Signs: 02/21/24 13:31 02/21/24 15:48 Temperature 98.4 F 98.8 F Temperature Source Oral Oral Pulse Rate 78 Pulse Rate [Left Radial] 70 Respiratory Rate 16 18 Blood Pressure 144/59 H Blood Pressure [Right Arm] 178/63 H Blood Pressure Mean [Right Arm] 101 Blood Pressure Source Automatic Cuff Blood Pressure Position Sitting 02 Sat by Pulse Oximetry 99 Oxygen Delivery Method Room Air Room Air Lab Data Lab results reviewed: Yes I reviewed the patient's lab results. Lab Results 02/21/24 14:35: WBC 6.1, RBC 3.38 L, Hgb 11.1 L, Hct 35.5 L, MCV 105.2 H, MCH 32.7 H, MCHC 31.1 L, RDW 15.2, Plt Count 206, MPV 8.8, Neut % (Auto) 75.9, Lymph % (Auto) 16.0, Hettinger % (Auto) 6.8, Eos % (Auto) 0.6, Baso % (Auto) 0.6, Neut # (Auto) 4.6, Lymph # (Auto) 1.0, Hettinger # (Auto) 0.4, Eos # (Auto) 0.0, Baso # (Auto) 0.0, Sodium 134 L, Potassium 5.0, Chloride 104, Carbon Dioxide 23, Anion Gap 12.0, BUN 16, Creatinine 0.90, Estimated Creat Clear 41, Estimated GFR 61, Est GFR ( Amer) 74, Glucose 130 H, Calcium 9.5, Total Bilirubin 0.5, AST 31, ALT 24, Alkaline Phosphatase 68, Total Protein 7.2, Albumin 4.7, Globulin 2.5, Albumin/Globulin Ratio 1.9 H, Lipase 71 02/21/24 14:35 02/21/24 14:35 Orders (Tests/Meds): ED MEDICATIONS Discontinued Medications Generic Name Dose Route Start Last Admin Trade Name Freq PRN Reason Stop Dose Admin Acetaminophen 1,000 mg 02/21/24 14:17 Acetaminophen 1,000mg/100ml Vial IV 02/21/24 14:18 ONCE ONE Belladonna Alkaloids 60 ml 02/21/24 14:17 02/21/24 14:44 Belladonna Alkaloids 60 Ml Ml PO 02/21/24 14:18 60 ml ONCE ONE Administration Lactated Ringer's 1,000 mls @ 999 mls/hr 02/21/24 14:17 Lactated Ringer's 1000 Ml Bag IV 02/21/24 15:17 .Q1H1M ONE Ketorolac Tromethamine 15 mg 02/21/24 14:17 Ketorolac 30mg/Ml Vial IV 02/21/24 14:18 ONCE ONE ORDERS Category Date Time Status CBC w/Auto Diff [Complete Blood Count Auto Diff] Stat Lab 02/21/24 14:35 Completed CMP [Comprehensive Metabolic Panel] Stat Lab 02/21/24 14:35 Completed Lipase Stat Lab 02/21/24 14:35 Completed Medical Decision Narrative: In summary patient is a 73-year-old female who presents to the emergency department for evaluation of chronic abdominal pain. Patient is hemodynamically stable upon arrival, afebrile. Physical exam is remarkable for mild epigastric tenderness only on palpation without rebound or guarding or rigidity. Bowel sounds normal active.. Differential diagnosis includes chronic abdominal pain versus pancreatitis etc. Initial workup will be conducted with hematologic labs. Initial interventions include GI cocktail. Initial workup reviewed by me shows her hematologic labs are nonactionable including normal transaminases normal lipase stable H&H. Upon repeat evaluation patient had complete resolution of her pain after ingestion of GI cocktail. Given this patient is appropriate for discharge with referral back to her PCP and close follow-up return to ER for any worsening signs or symptoms. Critical Care Critical Care Time Critical Care Time: No
[2024-02-21] MEDS: BELLADONNA ALKALOIDS 60 ML ML PO (14:44)
[2024-02-21 14:58] LABS: Basophils % 0.6 % (0.1-2.0); Eosinophils % 0.6 % (0.1-12.0); Hematocrit 35.5 % (37.0-47.0); Hemoglobin 11.1 g/dL (12.2-16.2); Mean Corpuscular HGB Conc 31.1 g/dL (31.8-35.4); Mean Corpuscular Hemoglobin 32.7 pg (27.0-31.2); Mean Corpuscular Volume 105.2 fl (81-99); Mean Platelet Volume 8.8 fl (7.4-10.4); Monocytes # 0.4 K/mm3 (0.1-1.0); Monocytes % 6.8 % (1.7-9.3); Neutrophils # 4.6 K/mm3 (1.8-7.8); Neutrophils % 75.9 % (37.0-80.0); Platelet Count 206 K/mm3 (142-424); Red Blood Count 3.38 M/mm3 (4.20-5.40); Red Cell Distribution Width 15.2 % (11.5-17.5); White Blood Count 6.1 K/mm3 (4.8-10.8)
[2024-02-21 15:07] LABS: Albumin Level 4.7 g/dl (3.5-5.0); Chloride 104 mmol/L (98-107); Sodium 134 mmol/L (136-145)
[2024-02-21 15:10] LABS: Alanine Aminotransferase 24 U/L (12-78); Albumin/Globulin Ratio 1.9 (1.1-1.8); Alkaline Phosphatase 68 U/L (38-126); Aspartate Amino Transferase 31 U/L (14-36); Bilirubin,Total 0.5 mg/dl (0.2-1.3); Blood Urea Nitrogen 16 mg/dl (7-17); Carbon Dioxide 23 mmol/L (22.0-30.0); Creatinine Clearance Estimated 41 mL/min (50-200); Estimated Glomerular Filt Rate 61 ml/min (>60); GFR (African American) 74 ML/MIN (>60); Globulin 2.5 g/dL (1.3-3.2); Lipase 71 U/L (23-300); Total Protein,Serum 7.2 g/dl (6.3-8.2)
[2024-02-21 15:11] LABS: Calcium 9.5 mg/dl (8.4-10.2); Glucose 130 mg/dl (74-100)
[2024-02-21 15:48] VITALS: BP 144/59; PULSE 78; RESP 18; TEMP 37.1; O2SAT 99
== END 2024-02-21 16:00 | disposition home or self-care (01) ==
PROVIDERS: Physician Assistant; Emergency Provider Student in an Organized Health Care Education/Training Program; PCP Internal Medicine
DX: R10.13 Epigastric pain (principal); G89.29 Other chronic pain; F45.42 Pain disorder with related psychological factors; R41.89 Other symptoms and signs involving cognitive functions and awareness; K21.9 Gastro-esophageal reflux disease without esophagitis; I65.29 Occlusion and stenosis of unspecified carotid artery; E11.9 Type 2 diabetes mellitus without complications; Z86.79 Personal history of other diseases of the circulatory system; Z95.1 Presence of aortocoronary bypass graft; Z95.0 Presence of cardiac pacemaker; Z79.84 Long term (current) use of oral hypoglycemic drugs
CPT/HCPCS: 80053; 83690; 85025; 96361; 96374; 96375; 99283; 99284

== ENCOUNTER 2024-02-23 16:19 | Emergency (ER) | payer MEDICARE, OTHER, SELFPAY ==
[2024-02-23 16:19] VITALS: BP 160/84; PULSE 67; RESP 20; TEMP 36.7; O2SAT 97; BMI 23.4
--- NOTE | 2024-02-23 16:24 | ED_ITS ---
<Statement entered by Glenys Hassan DO - 02/23/24 17:40> I was consulted by the [place], and we discussed the complexity of the problems being addressed. I approved the treatment and management plan for this patient's care in the emergency department, thus performing a substantive portion of the medical decision making. Glenys Hassan DO Discharge Plan Disposition Patient Disposition: Home, Self-Care Condition: Good Prescriptions Prescriptions: No Action fluticasone propionate 50 mcg/actuation spray,suspension intranasal venlafaxine 37.5 mg tablet 37.5 mg PO BID metformin 500 mg tablet 500 mg PO BID metoprolol succinate 50 mg tablet extended release 24 hr See Rx Instructions .ROUTE .COMPLEX Qty: 90 3RF Dose Instruction: TAKE ONE TABLET BY MOUTH ONCE A DAY FOR HIGH BLOOD PRESSURE Rx Instructions: TAKE ONE TABLET BY MOUTH ONCE A DAY FOR HIGH BLOOD PRESSURE clopidogrel [Plavix] 75 mg tablet 75 mg PO DAILY Qty: 90 1RF gabapentin 100 mg capsule 200 mg PO HS Qty: 60 2RF Linzess 72 mcg capsule 72 mcg PO DAILY Qty: 30 2RF polyethylene glycol 3350 [Miralax] 17 gram/dose powder 17 g PO DAILY Qty: 510 3RF amlodipine 5 mg tablet 5 mg PO DAILY Qty: 30 5RF quetiapine [Seroquel] 50 mg tablet 50 mg PO HS Qty: 90 1RF diazepam 2 mg tablet 2 mg PO TID Qty: 90 2RF ondansetron 4 mg tablet,disintegrating See Rx Instructions .ROUTE .COMPLEX Qty: 30 1RF Dose Instruction: DISSOLVE 1 TABLET ON THE TONGUE EVERY 8 HOURS NEEDED FOR NAUSEA/VOMITING Rx Instructions: DISSOLVE 1 TABLET ON THE TONGUE EVERY 8 HOURS NEEDED FOR NAUSEA/VOMITING acetaminophen [Pain Relief ES (acetaminophen)] 500 mg tablet 500 - 1,000 mg PO Q6HP PRN (Reason: Pain) omeprazole 20 mg capsule,delayed release(DR/EC) 20 mg PO DAILY calcium carbonate-vitamin D3 500 mg-2.5 mcg (100 unit) tablet,chewable 1 tab PO BID cholecalciferol (vitamin D3) 50 mcg (2,000 unit) tablet 2,000 unit PO DAILY atorvastatin 40 mg tablet 40 mg PO DAILY isosorbide mononitrate 30 mg tablet extended release 24 hr 30 mg PO DAILY famotidine 20 mg tablet 20 mg PO DAILY aspirin 81 mg tablet,chewable 81 mg PO DAILY alendronate 70 mg tablet 70 mg PO WEEKLY Referrals Follow up/Referrals: Provider,Referral, [Primary Care Provider] - See instructions Activity Restrictions/Add. Instructions Additional Instructions/Restrictions: Follow-up with Dr. Soriano as scheduled. Follow-up with your PCP within 48 hours. Return to ER for any worsening signs or symptoms as needed Clinical Impressions Clinical Impression: Chronic abdominal pain Instructions Patient Instructions: DI for Chronic Pain -- Adult Print Language Print Language: Indian Discharge ED Provider: Glenys Hassan General Adult HPI General Chief complaint: Recheck/Abnormal Lab/Rx Stated complaint: ABD Pain Time Seen by Provider: 02/23/24 16:24 History of Present Illness HPI narrative: Patient presents for evaluation of chronic abdominal pain. Patient has a longstanding history of chronic functional abdominal pain has to date had no identifiable source. She does have appointment with gastroenterology in [place] in March for reevaluation. Patient states is her standard pain and initially states that she cannot eat or drink but denies chest pain shortnes s of breath fever chills hemoptysis hematochezia melena hematemesis. Related Data Home Medications ?Medication ?Instructions ?Recorded ?Confirmed venlafaxine 37.5 mg tablet 37.5 mg PO BID mood 07/26/17 01/17/24 metformin 500 mg tablet 500 mg PO BID 05/13/18 01/17/24 acetaminophen 500 mg tablet (Pain 500 - 1,000 mg PO Q6HP PRN Pain 09/24/22 01/17/24 Relief Extra Strength (acetaminophen)) aspirin 81 mg chewable tablet 81 mg PO DAILY 07/21/23 01/17/24 atorvastatin 40 mg tablet 40 mg PO DAILY 07/21/23 01/17/24 calcium carbonate 500 mg-vitamin 1 tab PO BID 07/21/23 01/17/24 D3 2.5 mcg (100 unit) chewable tablet cholecalciferol (vitamin D3) 50 2,000 unit PO DAILY 07/21/23 01/17/24 mcg (2,000 unit) tablet famotidine 20 mg tablet 20 mg PO DAILY 07/21/23 01/17/24 isosorbide mononitrate 30 mg 30 mg PO DAILY 07/21/23 01/17/24 tablet,extended release 24 hr omeprazole 20 mg capsule,delayed 20 mg PO DAILY 07/21/23 01/17/24 release fluticasone propionate 50 intranasal 12/15/23 01/17/24 mcg/actuation nasal spray,suspension alendronate 70 mg tablet 70 mg PO WEEKLY 01/15/24 01/17/24 Previous Rx's ?Medication ?Instructions ?Recorded metoprolol succinate 50 mg See Rx Instructions .Route 10/11/23 tablet,extended release 24 hr .COMPLEX #90 tabs clopidogrel 75 mg tablet (Plavix) 75 mg PO DAILY #90 tabs 12/10/23 gabapentin 100 mg capsule 200 mg (2 x 100 mg) PO HS #60 caps 01/10/24 linaclotide 72 mcg capsule 72 mcg PO DAILY #30 caps 02/02/24 (Linzess) polyethylene glycol 3350 17 17 g PO DAILY #510 grams 02/10/24 gram/dose oral powder (Miralax) amlodipine 5 mg tablet 5 mg PO DAILY #30 tabs 02/11/24 quetiapine 50 mg tablet (Seroquel) 50 mg PO HS #90 tabs 02/12/24 diazepam 2 mg tablet 2 mg PO TID #90 tabs 02/14/24 ondansetron 4 mg disintegrating See Rx Instructions .Route 02/16/24 tablet .COMPLEX #30 tabs Allergies Allergy/AdvReac Type Severity Reaction Status Date / Time codeine [CODEINE] Allergy Unknown WEAK Verified 01/17/24 15:16 hydrochlorothiazide Allergy Unknown I-RASH Verified 01/17/24 15:16 [HYDROCHLOROTHIAZIDE] hydrocodone [HYDROCODONE] Allergy Unknown I-RASH Verified 01/17/24 15:16 metoclopramide Allergy Unknown SLURRED Verified 01/17/24 15:16 [METOCLOPRAMIDE] SPEECH, WEAK nifedipine [NIFEDIPINE] Allergy Unknown I-HIVES Verified 01/17/24 15:16 prazosin [PRAZOSIN] Allergy Unknown ITCHING/WEA Verified 01/17/24 15:16 K triamterene [TRIAMTERENE] Allergy Unknown I-RASH Verified 01/17/24 15:16 [facility] Disclaimer: The information contained in this section may have been updated after the patient was seen, as this information can be updated by other users. Medical History Type 2 diabetes mellitus Anxiety Gastro-esophageal reflux disease without esophagitis Grief reaction Stricture and stenosis of esophagus Esophageal thickening Esophageal thickening Femur fracture, left History of left heart catheterization Coronary artery disease Carotid artery stenosis Surgical History History of permanent cardiac pacemaker placement S/P CABG x 1 Status post aortic valve replacement with bioprosthetic valve Family History Other Family history of cancer Family history of diabetes mellitus type II Family history of hypertension Family history of myocardial infarction Social History Smoking Status: Never smoker second hand exposure: Yes alcohol intake: never substance use type: denies use current occupational status: retired Travel in the last 8 weeks: None household members: none housing: apartment lives independently: Yes marital status: single education level: middle school service: No chcf: No current occupational exposures/hazards: No caffeine: Yes do you feel safe at home: Yes victim of physical abuse: No victim of emotional abuse: No victim of sexual abuse: No would you like helpful sources: No ROS Obtained: Yes Systems reviewed as appropriate & no additional complaints except as documented Physical Exam General General appearance: alert and in no apparent distress Respiratory Respiratory exam: Present normal lung sounds bilaterally Cardiovascular Cardiovascular exam: Present regular rate and normal rhythm Abdominal Exam Abdominal exam: Present soft, tenderness (Mild tenderness to palpation only in the epigastrium only that rebound or guarding or rigidity and normal bowel sounds), rigidity and normal bowel sounds; Absent guarding or rebound Neurological Exam Neurological exam: Present alert and oriented X3 Medical Decision Making Medical Records Medical records reviewed: Yes I reviewed the patient's medical records. Chet Inquiry Pt receiving controlled substance: No Vital Signs: 02/23/24 16:19 Temperature 98.0 F Temperature Source Oral Pulse Rate [Right Radial] 67 Respiratory Rate 20 Blood Pressure [Right Arm] 160/84 H Blood Pressure Mean [Right Arm] 109 02 Sat by Pulse Oximetry 97 Oxygen Delivery Method Room Air Lab Data Lab results reviewed: Yes I reviewed the patient's lab results. Orders (Tests/Meds): ED MEDICATIONS Discontinued Medications Generic Name Dose Route Start Last Admin Trade Name Freq PRN Reason Stop Dose Admin Acetaminophen 1,000 mg 02/23/24 16:26 02/23/24 16:30 Acetaminophen 500mg Tab PO 02/23/24 16:27 1,000 mg ONCE ONE Administration Belladonna Alkaloids 60 ml 02/23/24 16:26 02/23/24 16:30 Belladonna Alkaloids 60 Ml Ml PO 02/23/24 16:27 60 ml ONCE ONE Administration Ketorolac Tromethamine 30 mg 02/23/24 16:26 02/23/24 16:29 Ketorolac 30mg/Ml Vial IM 02/23/24 16:27 30 mg ONCE ONE Administration Medical Decision Narrative: In summary patient is a 73-year-old female who presents to the emergency department for evaluation of chronic abdominal pain. Patient is hemodynamically stable upon arrival, afebrile. Physical exam is remarkable for epigastric abdominal pain on palpation without any rebound or guarding or rigidity and objective exam shows unconcerning abdominal exam. Differential diagnosis includes chronic abdominal pain versus pancreatitis versus achalasia etc. Initial workup is deferred for now and lieu of normal abdominal pain cocktail and p.o. challenge. Initial interventions include p.o. acetaminophen GI cocktail and IM Toradol. On repeat evaluation patient reported complete resolution of her abdominal pain after initial intervention. She was able to eat a sandwich and chips without abdominal pain and no nausea vomiting. Given this patient is appropriate for discharge with no further workup required with strict return precautions. Critical Care Critical Care Time Critical Care Time: No
--- NOTE | 2024-02-23 16:25 | PC.NURSE ---
TERRANCE DEY AT BEDSIDE
[2024-02-23] MEDS: KETOROLAC 30MG/ML VIAL 30 MG IM (16:29)
[2024-02-23] MEDS: BELLADONNA ALKALOIDS 60 ML ML PO (16:30)
[2024-02-23] MEDS: ACETAMINOPHEN 500MG TAB 1000 MG PO (16:30)
--- NOTE | 2024-02-23 16:39 | PC.NURSE ---
assisted pt to restroom and back to room. pt tolerated well. assisted back in bed. bed in lowest position. call light within reach. provided with warm blanket.
[2024-02-23 17:07] VITALS: BP 148/61; PULSE 71; RESP 20; TEMP 36.7; O2SAT 98
== END 2024-02-23 17:08 | disposition home or self-care (01) ==
PROVIDERS: Emergency Provider Emergency Medicine
DX: R10.13 Epigastric pain (principal); G89.29 Other chronic pain; F45.42 Pain disorder with related psychological factors; R41.89 Other symptoms and signs involving cognitive functions and awareness; E11.9 Type 2 diabetes mellitus without complications; K21.9 Gastro-esophageal reflux disease without esophagitis; I65.29 Occlusion and stenosis of unspecified carotid artery; I11.9 Hypertensive heart disease without heart failure; I25.10 Atherosclerotic heart disease of native coronary artery without angina pectoris; Z79.84 Long term (current) use of oral hypoglycemic drugs; Z95.1 Presence of aortocoronary bypass graft; Z95.0 Presence of cardiac pacemaker
CPT/HCPCS: 96374; 99284; J1885

== ENCOUNTER 2024-02-26 23:32 | Emergency (ER) | payer MEDICARE, OTHER, SELFPAY ==
[2024-02-26 23:32] VITALS: BP 173/72; PULSE 74; RESP 16; TEMP 36.6; O2SAT 96; BMI 22.8
[2024-02-27] VITALS: BP 159/67; PULSE 70; O2SAT 97
--- NOTE | 2024-02-27 00:21 | HMH.EDGENADL ---
Discharge Plan Disposition Patient Disposition: Home, Self-Care Condition: Good Chief Complaint: Nausea/Vomiting/Diarrhea Prescriptions Prescriptions: No Action fluticasone propionate 50 mcg/actuation spray,suspension intranasal venlafaxine 37.5 mg tablet 37.5 mg PO BID metformin 500 mg tablet 500 mg PO BID metoprolol succinate 50 mg tablet extended release 24 hr See Rx Instructions .ROUTE .COMPLEX Qty: 90 3RF Dose Instruction: TAKE ONE TABLET BY MOUTH ONCE A DAY FOR HIGH BLOOD PRESSURE Rx Instructions: TAKE ONE TABLET BY MOUTH ONCE A DAY FOR HIGH BLOOD PRESSURE clopidogrel [Plavix] 75 mg tablet 75 mg PO DAILY Qty: 90 1RF gabapentin 100 mg capsule 200 mg PO HS Qty: 60 2RF Linzess 72 mcg capsule 72 mcg PO DAILY Qty: 30 2RF polyethylene glycol 3350 [Miralax] 17 gram/dose powder 17 g PO DAILY Qty: 510 3RF amlodipine 5 mg tablet 5 mg PO DAILY Qty: 30 5RF quetiapine [Seroquel] 50 mg tablet 50 mg PO HS Qty: 90 1RF diazepam 2 mg tablet 2 mg PO TID Qty: 90 2RF ondansetron 4 mg tablet,disintegrating See Rx Instructions .ROUTE .COMPLEX Qty: 30 1RF Dose Instruction: DISSOLVE 1 TABLET ON THE TONGUE EVERY 8 HOURS NEEDED FOR NAUSEA/VOMITING Rx Instructions: DISSOLVE 1 TABLET ON THE TONGUE EVERY 8 HOURS NEEDED FOR NAUSEA/VOMITING acetaminophen [Pain Relief ES (acetaminophen)] 500 mg tablet 500 - 1,000 mg PO Q6HP PRN (Reason: Pain) omeprazole 20 mg capsule,delayed release(DR/EC) 20 mg PO DAILY calcium carbonate-vitamin D3 500 mg-2.5 mcg (100 unit) tablet,chewable 1 tab PO BID cholecalciferol (vitamin D3) 50 mcg (2,000 unit) tablet 2,000 unit PO DAILY atorvastatin 40 mg tablet 40 mg PO DAILY isosorbide mononitrate 30 mg tablet extended release 24 hr 30 mg PO DAILY famotidine 20 mg tablet 20 mg PO DAILY aspirin 81 mg tablet,chewable 81 mg PO DAILY alendronate 70 mg tablet 70 mg PO WEEKLY Referrals Follow up/Referrals: Hansel Ruff MD [Primary Care Provider] - See instructions Activity Restrictions/Add. Instructions Additional Instructions/Restrictions: You were evaluated in the ER and are appropriate for discharge at this time. Take your prescribed medications as directed. Drink plenty of water. Follow-up with your primary care doctor in 2-3 days. Return to the ER with new, worsening, or otherwise concerning symptoms. Clinical Impressions Clinical Impression: Chronic abdominal pain, Nausea Instructions Patient Instructions: DI for Diarrhea and Traveler's Diarrhea -- Adult, DI for Diarrhea and Traveler's Diarrhea -- Child, DI for Nausea -- Adult, DI for Nausea -- Child Print Language Print Language: Vietnamese Discharge ED Provider: Felicita Klein General Adult HPI General Chief complaint: Nausea/Vomiting/Diarrhea Stated complaint: ABD PAIN Time Seen by Provider: 02/27/24 00:17 Mode of Arrival: EMS Source of Information: Patient and EMS Limitations: No Limitations Description of Symptoms (Recalled from ER Triage Doc. by RN): Pt presents to ED via EMS for Nausea. Pt states she was seen at [facility] today and prescribed Zofran and Prilosec. Pt has not started the meds yet. Pt refused an IV at this time. Pt is A&O*4. History of Present Illness HPI narrative: 73-year-old female well-known to this emergency department presents via EMS for nausea and midepigastric abdominal pain. Patient was evaluated at [facility] earlier today and discharged with Zofran and Prilosec. Patient reported she picked up these medications. She reports she got nauseous and she has taken the Zofran at home since the nausea and 1 episode of emesis earlier today. She has not had additional episodes of emesis. Patient reports she was diagnosed with a hiatal hernia at [facility]. She has been diagnosed with this previously in our ER and on previous imaging studies including her most recent CT abdomen pelvis here in January. She is refusing an IV. She is requesting to stay in the hospital due to her nausea. She has no fevers, chills, chest pain, difficulty breathing, diarrhea, dysuria, or other associated symptoms. Related Data Home Medications ?Medication ?Instructions ?Recorded ?Confirmed venlafaxine 37.5 mg tablet 37.5 mg PO BID mood 07/26/17 01/17/24 metformin 500 mg tablet 500 mg PO BID 05/13/18 01/17/24 acetaminophen 500 mg tablet (Pain 500 - 1,000 mg PO Q6HP PRN Pain 09/24/22 01/17/24 Relief Extra Strength (acetaminophen)) aspirin 81 mg chewable tablet 81 mg PO DAILY 07/21/23 01/17/24 atorvastatin 40 mg tablet 40 mg PO DAILY 07/21/23 01/17/24 calcium carbonate 500 mg-vitamin 1 tab PO BID 07/21/23 01/17/24 D3 2.5 mcg (100 unit) chewable tablet cholecalciferol (vitamin D3) 50 2,000 unit PO DAILY 07/21/23 01/17/24 mcg (2,000 unit) tablet famotidine 20 mg tablet 20 mg PO DAILY 07/21/23 01/17/24 isosorbide mononitrate 30 mg 30 mg PO DAILY 07/21/23 01/17/24 tablet,extended release 24 hr omeprazole 20 mg capsule,delayed 20 mg PO DAILY 07/21/23 01/17/24 release fluticasone propionate 50 intranasal 12/15/23 01/17/24 mcg/actuation nasal spray,suspension alendronate 70 mg tablet 70 mg PO WEEKLY 01/15/24 01/17/24 Previous Rx's ?Medication ?Instructions ?Recorded metoprolol succinate 50 mg See Rx Instructions .Route 10/11/23 tablet,extended release 24 hr .COMPLEX #90 tabs clopidogrel 75 mg tablet (Plavix) 75 mg PO DAILY #90 tabs 12/10/23 gabapentin 100 mg capsule 200 mg (2 x 100 mg) PO HS #60 caps 01/10/24 linaclotide 72 mcg capsule 72 mcg PO DAILY #30 caps 02/02/24 (Linzess) polyethylene glycol 3350 17 17 g PO DAILY #510 grams 02/10/24 gram/dose oral powder (Miralax) amlodipine 5 mg tablet 5 mg PO DAILY #30 tabs 02/11/24 quetiapine 50 mg tablet (Seroquel) 50 mg PO HS #90 tabs 02/12/24 diazepam 2 mg tablet 2 mg PO TID #90 tabs 02/14/24 ondansetron 4 mg disintegrating See Rx Instructions .Route 02/16/24 tablet .COMPLEX #30 tabs Allergies Allergy/AdvReac Type Severity Reaction Status Date / Time codeine [CODEINE] Allergy Unknown WEAK Verified 01/17/24 15:16 hydrochlorothiazide Allergy Unknown I-RASH Verified 01/17/24 15:16 [HYDROCHLOROTHIAZIDE] hydrocodone [HYDROCODONE] Allergy Unknown I-RASH Verified 01/17/24 15:16 metoclopramide Allergy Unknown SLURRED Verified 01/17/24 15:16 [METOCLOPRAMIDE] SPEECH, WEAK nifedipine [NIFEDIPINE] Allergy Unknown I-HIVES Verified 01/17/24 15:16 prazosin [PRAZOSIN] Allergy Unknown ITCHING/WEA Verified 01/17/24 15:16 K triamterene [TRIAMTERENE] Allergy Unknown I-RASH Verified 01/17/24 15:16 [facility] Disclaimer: The information contained in this section may have been updated after the patient was seen, as this information can be updated by other users. Medical History Type 2 diabetes mellitus Anxiety Gastro-esophageal reflux disease without esophagitis Grief reaction Stricture and stenosis of esophagus Esophageal thickening Esophageal thickening Femur fracture, left History of left heart catheterization Coronary artery disease Carotid artery stenosis Surgical History History of permanent cardiac pacemaker placement S/P CABG x 1 Status post aortic valve replacement with bioprosthetic valve Family History Other Family history of cancer Family history of diabetes mellitus type II Family history of hypertension Family history of myocardial infarction Social History Smoking Status: Unknown if ever smoked second hand exposure: Yes alcohol intake: never substance use type: denies use current occupational status: retired Travel in the last 8 weeks: None household members: none housing: apartment lives independently: Yes marital status: single education level: middle school service: No senior care: No current occupational exposures/hazards: No caffeine: Yes do you feel safe at home: Yes victim of physical abuse: No victim of emotional abuse: No victim of sexual abuse: No would you like helpful sources: No ROS Obtained: Yes All systems reviewed & no additional complaints except as documented Positive ROS per HPI Physical Exam General General appearance: alert and in no apparent distress Head Head exam: atraumatic and normocephalic Eye Eye exam: Present PERRL and EOMI ENT ENT exam: Present mucous membranes moist Neck Neck exam: Present normal inspection and full ROM Chest Chest inspection: Present symmetric chest wall rise Respiratory Respiratory exam: Present normal lung sounds bilaterally; Absent respiratory distress, wheezes or stridor Cardiovascular Cardiovascular exam: Present regular rate and normal rhythm Abdominal Exam Abdominal exam: Present soft; Absent distention, tenderness, guarding or rebound Extremities Exam Extremities exam: Present full ROM Neurological Exam Neurological exam: Present alert and oriented X3; Absent motor sensory deficit Psychiatric Psychiatric exam: Present normal affect and normal mood Skin Skin exam: Present warm and dry Medical Decision Making Medical Records Medical records reviewed: Yes I reviewed the patient's medical records. MR Comment: CT abdomen pelvis from January demonstrated hiatal hernia consistent with a diagnosis from [facility]. Chet Inquiry Pt receiving controlled substance: No Vital Signs: 02/26/24 23:32 Temperature 97.9 F Temperature Source Oral Pulse Rate [Left] 74 Respiratory Rate 16 Blood Pressure [Right Arm] 173/72 H Blood Pressure Mean [Right Arm] 105 02 Sat by Pulse Oximetry 96 Oxygen Delivery Method Room Air Medical Decision Narrative: In summary, this 73-year-old female well-known to this emergency department presents to the emergency department today with nausea. On initial evaluation patient is hemodynamically stable, afebrile, physical exam is benign despite patient complaining of epigastric discomfort and having concerns about her hiatal hernia. Differential diagnosis includes but is not limited to hiatal hernia, chronic abdominal pain, visit for secondary gain, I considered other possible etiologies, however given patient's consistent presentation with prior extensive workups for the same symptoms that have all been reassuring and her having an unchanged physical exam with reassuring vitals I do not believe she requires labs or new imaging today. Patient received GI cocktail. She is tolerating oral intake. She is appropriate for discharge at this time. I spent significant time at bedside counseling patient on her condition and the importance of taking her medications as prescribed. Patient was given instructions on symptomatic management, follow up instructions, and return precautions for the emergency department. Patient indicated understanding and was discharged in stable condition. Critical Care Critical Care Time Critical Care Time: No
[2024-02-27] MEDS: BELLADONNA ALKALOIDS 60 ML ML PO (00:23)
[2024-02-27 00:30] VITALS: BP 180/76; PULSE 68; O2SAT 95
[2024-02-27 01:00] VITALS: BP 163/71; PULSE 65; O2SAT 97
[2024-02-27 01:04] VITALS: BP 163/71; PULSE 70; RESP 18; TEMP 36.6; O2SAT 97
--- NOTE | 2024-02-27 01:30 | PC.NURSE ---
Dr. Klein would like to call in u/s for ob transvaginal
== END 2024-02-27 01:34 | disposition home or self-care (01) ==
PROVIDERS: Emergency Provider Emergency Medicine; PCP Internal Medicine
DX: R10.13 Epigastric pain (principal); G89.29 Other chronic pain; F45.42 Pain disorder with related psychological factors
CPT/HCPCS: 99283

== ENCOUNTER 2024-02-28 16:08 | Emergency (ER) | payer MEDICARE, OTHER, SELFPAY ==
[2024-02-28 16:08] VITALS: BP 171/75; PULSE 73; RESP 18; TEMP 36.6; O2SAT 99; BMI 22.8
--- NOTE | 2024-02-28 16:09 | ED_ITS ---
<Statement entered by Glenys Hassan DO - 02/28/24 16:59> I was consulted by the [facility], and we discussed the complexity of the problems being addressed. I approved the treatment and management plan for this patient's care in the emergency department, thus performing a substantive portion of the medical decision making. Glenys Hassan DO Discharge Plan Disposition Patient Disposition: Home, Self-Care Condition: Good Prescriptions Prescriptions: No Action fluticasone propionate 50 mcg/actuation spray,suspension intranasal venlafaxine 37.5 mg tablet 37.5 mg PO BID metformin 500 mg tablet 500 mg PO BID metoprolol succinate 50 mg tablet extended release 24 hr See Rx Instructions .ROUTE .COMPLEX Qty: 90 3RF Dose Instruction: TAKE ONE TABLET BY MOUTH ONCE A DAY FOR HIGH BLOOD PRESSURE Rx Instructions: TAKE ONE TABLET BY MOUTH ONCE A DAY FOR HIGH BLOOD PRESSURE clopidogrel [Plavix] 75 mg tablet 75 mg PO DAILY Qty: 90 1RF gabapentin 100 mg capsule 200 mg PO HS Qty: 60 2RF Linzess 72 mcg capsule 72 mcg PO DAILY Qty: 30 2RF polyethylene glycol 3350 [Miralax] 17 gram/dose powder 17 g PO DAILY Qty: 510 3RF amlodipine 5 mg tablet 5 mg PO DAILY Qty: 30 5RF quetiapine [Seroquel] 50 mg tablet 50 mg PO HS Qty: 90 1RF diazepam 2 mg tablet 2 mg PO TID Qty: 90 2RF ondansetron 4 mg tablet,disintegrating See Rx Instructions .ROUTE .COMPLEX Qty: 30 1RF Dose Instruction: DISSOLVE 1 TABLET ON THE TONGUE EVERY 8 HOURS NEEDED FOR NAUSEA/VOMITING Rx Instructions: DISSOLVE 1 TABLET ON THE TONGUE EVERY 8 HOURS NEEDED FOR NAUSEA/VOMITING acetaminophen [Pain Relief ES (acetaminophen)] 500 mg tablet 500 - 1,000 mg PO Q6HP PRN (Reason: Pain) omeprazole 20 mg capsule,delayed release(DR/EC) 20 mg PO DAILY calcium carbonate-vitamin D3 500 mg-2.5 mcg (100 unit) tablet,chewable 1 tab PO BID cholecalciferol (vitamin D3) 50 mcg (2,000 unit) tablet 2,000 unit PO DAILY atorvastatin 40 mg tablet 40 mg PO DAILY isosorbide mononitrate 30 mg tablet extended release 24 hr 30 mg PO DAILY famotidine 20 mg tablet 20 mg PO DAILY aspirin 81 mg tablet,chewable 81 mg PO DAILY alendronate 70 mg tablet 70 mg PO WEEKLY Activity Restrictions/Add. Instructions Additional Instructions/Restrictions: Take your medicine as prescribed, follow-up with your PCP for any worsening signs or symptoms. Return to the ER for any new or worsening symptoms. Clinical Impressions Clinical Impression: Chronic upper abdominal pain Print Language Print Language: Cypriot Discharge ED Provider: Glenys Hassan General Adult HPI General Chief complaint: PAIN Stated complaint: Abd pain Time Seen by Provider: 02/28/24 16:13 History of Present Illness HPI narrative: Patient presents for evaluation of chronic upper abdominal pain. Patient states that she is having her normal daily upper abdominal pain. She also states that she was seen at and has a hiatal hernia and that it is wrapped around my esophagus . That is not actually a new diagnosis that she has a hiatal hernia. Patient is very well-known and has multiple multiple visits to our ER along with many others for the same complaint. She has been extensively worked up with no definitive source of her discomfort. She has no new complaints including chest pain fever chills hemoptysis hematochezia melena diarrhea. Related Data Home Medications ?Medication ?Instructions ?Recorded ?Confirmed venlafaxine 37.5 mg tablet 37.5 mg PO BID mood 07/26/17 01/17/24 metformin 500 mg tablet 500 mg PO BID 05/13/18 01/17/24 acetaminophen 500 mg tablet (Pain 500 - 1,000 mg PO Q6HP PRN Pain 09/24/22 01/17/24 Relief Extra Strength (acetaminophen)) aspirin 81 mg chewable tablet 81 mg PO DAILY 07/21/23 01/17/24 atorvastatin 40 mg tablet 40 mg PO DAILY 07/21/23 01/17/24 calcium carbonate 500 mg-vitamin 1 tab PO BID 07/21/23 01/17/24 D3 2.5 mcg (100 unit) chewable tablet cholecalciferol (vitamin D3) 50 2,000 unit PO DAILY 07/21/23 01/17/24 mcg (2,000 unit) tablet famotidine 20 mg tablet 20 mg PO DAILY 07/21/23 01/17/24 isosorbide mononitrate 30 mg 30 mg PO DAILY 07/21/23 01/17/24 tablet,extended release 24 hr omeprazole 20 mg capsule,delayed 20 mg PO DAILY 01/10/24 07/08/24 release fluticasone propionate 50 intranasal 12/15/23 01/17/24 mcg/actuation nasal spray,suspension alendronate 70 mg tablet 70 mg PO WEEKLY 01/15/24 01/17/24 Previous Rx's ?Medication ?Instructions ?Recorded metoprolol succinate 50 mg See Rx Instructions .Route 10/11/23 tablet,extended release 24 hr .COMPLEX #90 tabs clopidogrel 75 mg tablet (Plavix) 75 mg PO DAILY #90 tabs 12/10/23 gabapentin 100 mg capsule 200 mg (2 x 100 mg) PO HS #60 caps 01/10/24 linaclotide 72 mcg capsule 72 mcg PO DAILY #30 caps 02/02/24 (Linzess) polyethylene glycol 3350 17 17 g PO DAILY #510 grams 02/10/24 gram/dose oral powder (Miralax) amlodipine 5 mg tablet 5 mg PO DAILY #30 tabs 02/11/24 quetiapine 50 mg tablet (Seroquel) 50 mg PO HS #90 tabs 02/12/24 diazepam 2 mg tablet 2 mg PO TID #90 tabs 02/14/24 ondansetron 4 mg disintegrating See Rx Instructions .Route 02/16/24 tablet .COMPLEX #30 tabs Allergies Allergy/AdvReac Type Severity Reaction Status Date / Time codeine [CODEINE] Allergy Unknown WEAK Verified 01/17/24 15:16 hydrochlorothiazide Allergy Unknown I-RASH Verified 01/17/24 15:16 [HYDROCHLOROTHIAZIDE] hydrocodone [HYDROCODONE] Allergy Unknown I-RASH Verified 01/17/24 15:16 metoclopramide Allergy Unknown SLURRED Verified 01/17/24 15:16 [METOCLOPRAMIDE] SPEECH, WEAK nifedipine [NIFEDIPINE] Allergy Unknown I-HIVES Verified 01/17/24 15:16 prazosin [PRAZOSIN] Allergy Unknown ITCHING/WEA Verified 01/17/24 15:16 K triamterene [TRIAMTERENE] Allergy Unknown I-RASH Verified 01/17/24 15:16 [facility] Dis[facility]: The information contained in this section may have been updated after the patient was seen, as this information can be updated by other users. Medical History Type 2 diabetes mellitus Anxiety Gastro-esophageal reflux disease without esophagitis Grief reaction Stricture and stenosis of esophagus Esophageal thickening Esophageal thickening Femur fracture, left History of left heart catheterization Coronary artery disease Carotid artery stenosis Surgical History History of permanent cardiac pacemaker placement S/P CABG x 1 Status post aortic valve replacement with bioprosthetic valve Family History Other Family history of cancer Family history of diabetes mellitus type II Family history of hypertension Family history of myocardial infarction Social History Smoking Status: Never smoker second hand exposure: Yes alcohol intake: never substance use type: denies use current occupational status: retired Travel in the last 8 weeks: None household members: none housing: apartment lives independently: Yes marital status: single education level: middle school service: No [place] [facility]: No current occupational exposures/hazards: No caffeine: Yes do you feel safe at home: Yes victim of physical abuse: No victim of emotional abuse: No victim of sexual abuse: No would you like helpful sources: No ROS Obtained: Yes Systems reviewed as appropriate & no additional complaints except as documented Physical Exam General General appearance: alert and in no apparent distress Respiratory Respiratory exam: Present normal lung sounds bilaterally Cardiovascular Cardiovascular exam: Present regular rate and normal rhythm; Absent normal heart sounds Neurological Exam Neurological exam: Present alert and oriented X3 Medical Decision Making Medical Records Medical records reviewed: Yes I reviewed the patient's medical records. Chet Inquiry Pt receiving controlled substance: No Vital Signs: 02/28/24 16:08 Temperature 98 F Temperature Source Oral Pulse Rate [Radial] 73 Respiratory Rate 18 Blood Pressure [Right Arm] 171/75 H Blood Pressure Mean [Right Arm] 107 Blood Pressure Source [Right Arm] Automatic Cuff Blood Pressure Position [Right Arm] Sitting 02 Sat by Pulse Oximetry 99 Oxygen Delivery Method Room Air Lab Data Lab results reviewed: Yes I reviewed the patient's lab results. Orders (Tests/Meds): ED MEDICATIONS Discontinued Medications Generic Name Dose Route Start Last Admin Trade Name Freq PRN Reason Stop Dose Admin Belladonna Alkaloids 60 ml 02/28/24 16:11 02/28/24 16:17 Belladonna Alkaloids 60 Ml Ml PO 02/28/24 16:12 60 ml ONCE ONE Administration Medical Decision Narrative: In summary patient is a 73-year-old female who presents to the emergency department for evaluation of chronic abdominal pain. Patient is hemodynamically stable upon arrival, afebrile. Physical exam is remarkable for mild nonspecific upper abdominal pain tenderness on palpation without rebound or guarding or rigidity. Exam is benign in appearance. She actually has no pain when distracted on palpation.. Differential diagnosis includes chronic abdominal pain versus lack of insight to her disease process versus other possible etiologies. Initial workup was deferred for now. Initial interventions include GI cocktail. Upon repeat evaluation she had her normal response to a GI cocktail which is complete symptom resolution thus further workup and intervention is deferred. Given this appropriate for discharge with strong recommendations to follow-up with PCP and be compliant with medication regimen. Critical Care Critical Care Time Critical Care Time: No
[2024-02-28] MEDS: BELLADONNA ALKALOIDS 60 ML ML PO (16:17)
[2024-02-28 16:57] VITALS: BP 171/75; PULSE 73; RESP 18; TEMP 36.7; O2SAT 99
== END 2024-02-28 16:58 | disposition home or self-care (01) ==
LOC: ER 16:27
PROVIDERS: Emergency Provider Emergency Medicine
DX: R10.13 Epigastric pain (principal); G89.29 Other chronic pain; F45.42 Pain disorder with related psychological factors; R41.89 Other symptoms and signs involving cognitive functions and awareness; E11.9 Type 2 diabetes mellitus without complications; K21.9 Gastro-esophageal reflux disease without esophagitis; I65.29 Occlusion and stenosis of unspecified carotid artery; I10 Essential (primary) hypertension; E78.5 Hyperlipidemia, unspecified; Z79.84 Long term (current) use of oral hypoglycemic drugs; Z86.79 Personal history of other diseases of the circulatory system; Z95.1 Presence of aortocoronary bypass graft
CPT/HCPCS: 99283

== ENCOUNTER 2024-03-04 14:14 | Emergency (ER) | payer MEDICARE, OTHER, SELFPAY ==
[2024-03-04 14:14] VITALS: BP 152/68; PULSE 70; RESP 16; TEMP 36.6; O2SAT 98; BMI 23.4
--- NOTE | 2024-03-04 14:18 | PC.NURSE ---
POPPY DEY AT BEDSIDE
--- NOTE | 2024-03-04 14:25 | HMH.EDGENADL ---
Discharge Plan Disposition Patient Disposition: Home, Self-Care Condition: Good Prescriptions Prescriptions: No Action fluticasone propionate 50 mcg/actuation spray,suspension intranasal venlafaxine 37.5 mg tablet 37.5 mg PO BID metformin 500 mg tablet 500 mg PO BID metoprolol succinate 50 mg tablet extended release 24 hr See Rx Instructions .ROUTE .COMPLEX Qty: 90 3RF Dose Instruction: TAKE ONE TABLET BY MOUTH ONCE A DAY FOR HIGH BLOOD PRESSURE Rx Instructions: TAKE ONE TABLET BY MOUTH ONCE A DAY FOR HIGH BLOOD PRESSURE clopidogrel [Plavix] 75 mg tablet 75 mg PO DAILY Qty: 90 1RF gabapentin 100 mg capsule 200 mg PO HS Qty: 60 2RF Linzess 72 mcg capsule 72 mcg PO DAILY Qty: 30 2RF polyethylene glycol 3350 [Miralax] 17 gram/dose powder 17 g PO DAILY Qty: 510 3RF amlodipine 5 mg tablet 5 mg PO DAILY Qty: 30 5RF quetiapine [Seroquel] 50 mg tablet 50 mg PO HS Qty: 90 1RF diazepam 2 mg tablet 2 mg PO TID Qty: 90 2RF ondansetron 4 mg tablet,disintegrating See Rx Instructions .ROUTE .COMPLEX Qty: 30 1RF Dose Instruction: DISSOLVE 1 TABLET ON THE TONGUE EVERY 8 HOURS NEEDED FOR NAUSEA/VOMITING Rx Instructions: DISSOLVE 1 TABLET ON THE TONGUE EVERY 8 HOURS NEEDED FOR NAUSEA/VOMITING acetaminophen [Pain Relief ES (acetaminophen)] 500 mg tablet 500 - 1,000 mg PO Q6HP PRN (Reason: Pain) omeprazole 20 mg capsule,delayed release(DR/EC) 20 mg PO DAILY calcium carbonate-vitamin D3 500 mg-2.5 mcg (100 unit) tablet,chewable 1 tab PO BID cholecalciferol (vitamin D3) 50 mcg (2,000 unit) tablet 2,000 unit PO DAILY atorvastatin 40 mg tablet 40 mg PO DAILY isosorbide mononitrate 30 mg tablet extended release 24 hr 30 mg PO DAILY famotidine 20 mg tablet 20 mg PO DAILY aspirin 81 mg tablet,chewable 81 mg PO DAILY alendronate 70 mg tablet 70 mg PO WEEKLY Referrals Follow up/Referrals: Hansel Ruff MD [Primary Care Provider] - See instructions Clinical Impressions Clinical Impression: Chronic upper abdominal pain, Chronic epigastric pain, Anxiety about health Instructions Patient Instructions: DI for Acute Abdominal Pain Print Language Print Language: Ugandan Discharge ED Provider: Lennox Conrad General Adult HPI <ANJUM Moore - Last Filed: 03/04/24 15:32> General Chief complaint: Abdominal Pain Stated complaint: abdominal pain Time Seen by Provider: 03/04/24 14:15 Mode of Arrival: EMS Source of Information: Patient Limitations: No Limitations Description of Symptoms (Recalled from ER Triage Doc. by RN): Patient complaint of hital hernia pain. States that she has this often and is scheduled to have surgery on March 16. History of Present Illness HPI narrative: 73-year-old female presents emergency department via EMS for less than 1 hour history of mid epigastric abdominal pain, cording to EMS that started approximately 1:30 PM, she states she has chronic abdominal pain that waxes and wanes, she was recently diagnosed with a hiatal hernia at [facility], she has upcoming surgery consultation scheduled March 16. He denies any fever chills chest pain shortness of breath, denies any abdominal pain outside of her typical pain, she denies any dyspepsia, dysphagia, she has been tolerating oral intake appropriately, she denies any nausea vomiting, constipation, diarrhea, denies urinary symptoms, denies any melena, hematochezia or hematemesis. He has not yet tried any medications for this pain, she takes her normal regular scheduled medications daily, other past medical history consistent with T2DM, chronic abdominal pain, anxiety, diverticulosis, CAD, status post CABG, prosthetic aortic valve, as well as implantable pacemaker, hyperlipidemia, hypertension. She denies any tobacco use, drug use or alcohol use, initial triage vitals grossly unremarkable.
[2024-03-04 15:36] VITALS: BP 144/70; PULSE 70; RESP 18; TEMP 36.6; O2SAT 99
== END 2024-03-04 15:38 | disposition home or self-care (01) ==
PROVIDERS: Emergency Provider Emergency Medicine; PCP Internal Medicine
DX: R10.13 Epigastric pain (principal); G89.29 Other chronic pain; K44.9 Diaphragmatic hernia without obstruction or gangrene; E11.9 Type 2 diabetes mellitus without complications; I65.29 Occlusion and stenosis of unspecified carotid artery; I25.10 Atherosclerotic heart disease of native coronary artery without angina pectoris; K21.9 Gastro-esophageal reflux disease without esophagitis
CPT/HCPCS: 99283

== ENCOUNTER 2024-03-08 07:27 | Emergency (ER) | payer MEDICARE, OTHER, SELFPAY ==
[2024-03-08 07:28] VITALS: BP 172/79; PULSE 81; RESP 13; TEMP 36.7; O2SAT 97; BMI 23.4
--- NOTE | 2024-03-08 07:52 | HMH.EDGENADL ---
Discharge Plan Disposition Patient Disposition: Home, Self-Care Prescriptions Prescriptions: No Action fluticasone propionate 50 mcg/actuation spray,suspension intranasal venlafaxine 37.5 mg tablet 37.5 mg PO BID metformin 500 mg tablet 500 mg PO BID metoprolol succinate 50 mg tablet extended release 24 hr See Rx Instructions .ROUTE .COMPLEX Qty: 90 3RF Dose Instruction: TAKE ONE TABLET BY MOUTH ONCE A DAY FOR HIGH BLOOD PRESSURE Rx Instructions: TAKE ONE TABLET BY MOUTH ONCE A DAY FOR HIGH BLOOD PRESSURE clopidogrel [Plavix] 75 mg tablet 75 mg PO DAILY Qty: 90 1RF gabapentin 100 mg capsule 200 mg PO HS Qty: 60 2RF Linzess 72 mcg capsule 72 mcg PO DAILY Qty: 30 2RF polyethylene glycol 3350 [Miralax] 17 gram/dose powder 17 g PO DAILY Qty: 510 3RF amlodipine 5 mg tablet 5 mg PO DAILY Qty: 30 5RF quetiapine [Seroquel] 50 mg tablet 50 mg PO HS Qty: 90 1RF diazepam 2 mg tablet 2 mg PO TID Qty: 90 2RF ondansetron 4 mg tablet,disintegrating See Rx Instructions .ROUTE .COMPLEX Qty: 30 1RF Dose Instruction: DISSOLVE 1 TABLET ON THE TONGUE EVERY 8 HOURS NEEDED FOR NAUSEA/VOMITING Rx Instructions: DISSOLVE 1 TABLET ON THE TONGUE EVERY 8 HOURS NEEDED FOR NAUSEA/VOMITING acetaminophen [Pain Relief ES (acetaminophen)] 500 mg tablet 500 - 1,000 mg PO Q6HP PRN (Reason: Pain) omeprazole 20 mg capsule,delayed release(DR/EC) 20 mg PO DAILY calcium carbonate-vitamin D3 500 mg-2.5 mcg (100 unit) tablet,chewable 1 tab PO BID cholecalciferol (vitamin D3) 50 mcg (2,000 unit) tablet 2,000 unit PO DAILY atorvastatin 40 mg tablet 40 mg PO DAILY isosorbide mononitrate 30 mg tablet extended release 24 hr 30 mg PO DAILY famotidine 20 mg tablet 20 mg PO DAILY aspirin 81 mg tablet,chewable 81 mg PO DAILY alendronate 70 mg tablet 70 mg PO WEEKLY Referrals Follow up/Referrals: Hansel Ruff MD [Primary Care Provider] - See instructions Activity Restrictions/Add. Instructions Additional Instructions/Restrictions: Please return to the emerged part with any new, concerning, or worsening symptoms including but not limited to severe abdominal pain, inability tolerate oral intake Clinical Impressions Clinical Impression: Foreign body ingestion Qualifiers: Encounter type: initial encounter Qualified Code(s): T18.9XXA - Foreign body of alimentary tract, part unspecified, initial encounter Instructions Patient Instructions: DI for Acute Abdominal Pain Print Language Print Language: Kinyarwanda Discharge ED Provider: Buck Mccormick General Adult HPI General Chief complaint: Abdominal Pain Stated complaint: ABD Pain Time Seen by Provider: 03/08/24 07:33 Mode of Arrival: EMS Source of Information: Patient and EMS Limitations: No Limitations Description of Symptoms (Recalled from ER Triage Doc. by RN): pt presents to ED with c/o possibly swallowing the plastic ring on top of a water bottle. pt reports she opened the cap and did not see the ring. pt reports no shortness of breath, has been able to tolerate oral intake since incident. History of Present Illness HPI narrative: This is a 73-year-old female with a history of type 2 diabetes, GERD, hiatal hernia, coronary artery disease, very well-known to our emergency department for frequent visits for various complaints who presents with concern for foreign body ingestion. States that she accidentally swallowed the plastic ring to her water bottle shortly prior to arrival. States that she has been tolerating oral intake since then. Denies abdominal pain. Called EMS who transported her to the emergency department for further evaluation. Related Data Home Medications ?Medication ?Instructions ?Recorded ?Confirmed venlafaxine 37.5 mg tablet 37.5 mg PO BID mood 07/26/17 02/29/24 metformin 500 mg tablet 500 mg PO BID 05/13/18 02/29/24 ac
[2024-03-08 07:53] VITALS: BP 139/75; PULSE 70; O2SAT 98
[2024-03-08 08:59] VITALS: BP 139/75; PULSE 70; RESP 16; TEMP 36.7; O2SAT 98
== END 2024-03-08 09:00 | disposition home or self-care (01) ==
PROVIDERS: Emergency Provider Student in an Organized Health Care Education/Training Program; PCP Internal Medicine
DX: T18.9XXA Foreign body of alimentary tract, part unspecified, initial encounter; W44.B9XA Other plastic object entering into or through a natural orifice, initial encounter
CPT/HCPCS: 99283; Q0162

== ENCOUNTER 2024-03-10 10:42 | Outpatient (CLI) | payer MEDICARE, OTHER, SELFPAY ==
--- NOTE | 2024-03-10 10:48 | FL_ITS ---
FINAL REPORT CLINICAL HISTORY: PARAESOPHAGEAL HERNIA 1:38 FLUORO TIME 635.63DAP FINDINGS: UPPER GI SERIES. HISTORY: Hernia. PROCEDURE: The patient ingested barium. Effervescent crystals were also administered. Spot and overhead films were obtained. 15 total images were performed. FINDINGS: There is marked esophageal dysmotility with proximal esophagus. There is marked narrowing of the distal esophagus not allowing passage of a 13 mm barium tablet. A paraesophageal hernia is not identified. There is no gastroesophageal reflux demonstrated. The rugal fold pattern of the stomach is normal. The duodenal bulb is normal. Fluoroscopy exposure time: 1.3 minutes. Radiation exposure DAP: 635.63 mGym2. IMPRESSION: Marked esophageal dysmotility with corkscrew esophagus and marked narrowing of the distal esophagus not allowing passage of a barium tablet. Endoscopic correlation is recommended. Films reviewed , interpreted and dictated by Dr. Lomeli. Transcribed by Hemal Becerra PA-C. Reviewed, Interpreted and Dictated by Ryan Lomeli MD Transcribed by ANJUM Leon Authenticated and [facility]
[2024-03-10] MEDS: BARIUM SULFATE (E-Z-HD 340GM);135ML BOTTLE 135 ML PO (11:05)
[2024-03-10] MEDS: E-Z-GASII EFFERVESCENT GRANULES;1PK 1 EACH PO (11:05)
== END 2024-03-10 23:59 | disposition home or self-care (01) ==
LOC: RAD 10:42
PROVIDERS: PCP Internal Medicine; Visit Provider Surgery
DX: K44.9 Diaphragmatic hernia without obstruction or gangrene (principal)
CPT/HCPCS: 74246

== ENCOUNTER 2024-05-01 12:39 | Outpatient (CLI) | payer MEDICARE, OTHER, SELFPAY ==
--- NOTE | 2024-05-01 12:48 | MM_ITS ---
PROCEDURE INFORMATION: Exam: MG Bilateral Screening 3D Mammography Exam date and time: 05/01/2024 12:52 PM Age: 73 years old Clinical indication: Screening examination TECHNIQUE: Imaging protocol: Bilateral Screening tomosynthesis and 2D mammography including computer-aided detection (CAD) when performed. COMPARISON: 1. MG MM DIG SCREENING MAMM BI W/CAD 04/29/2023 1:47 PM 2. MG MM DIG SCREENING MAMM BI W/CAD 02/23/2022 3:23 PM 3. MG SCBI MM Dig screening mamm BI w/CAD 01/21/2018 9:56 AM 4. MG DMSB DIG MAMM-SCREEN BRIAN W/CAD 01/19/2017 5:44 PM FINDINGS: MAMMOGRAPHY: Breast composition: There are scattered areas of fibroglandular density. Mass: No suspicious mass. Architectural distortion: None. Calcifications: No suspicious calcifications. Asymmetric density: None. Skin thickening: None. Axillary adenopathy: None. Other: Pacemaker in the left axilla, limits evaluation and accentuates the importance of clinical breast exam. IMPRESSION: No mammographic evidence of malignancy. Annual screening is recommended unless otherwise clinically indicated. ASSESSMENT: BI-RADS Category 1: Negative.
== END 2024-05-01 23:59 | disposition home or self-care (01) ==
LOC: RAD 12:43
PROVIDERS: PCP Internal Medicine; Visit Provider Internal Medicine
DX: Z12.31 Encounter for screening mammogram for malignant neoplasm of breast (principal)
CPT/HCPCS: 77063; 77067

== ENCOUNTER 2024-05-03 15:16 | Outpatient (CLI) | payer MEDICARE, OTHER, SELFPAY ==
[2024-05-03 16:12] LABS: Microalbumin/Creatinine Ratio 27.3
[2024-05-03 16:20] LABS: Creatinine,Urine Random 45 mg/dL (Not Estab.)
[2024-05-03 16:35] LABS: Alanine Aminotransferase 23 U/L (12-78); Albumin Level 4.9 g/dl (3.5-5.0); Albumin/Globulin Ratio 2.5 (1.1-1.8); Alkaline Phosphatase 74 U/L (38-126); Aspartate Amino Transferase 30 U/L (14-36); Bilirubin,Total 0.7 mg/dl (0.2-1.3); Blood Urea Nitrogen 21 mg/dl (7-17); Calcium 10.1 mg/dl (8.4-10.2); Carbon Dioxide 23 mmol/L (22.0-30.0); Chloride 105 mmol/L (98-107); Chol/HDL Ratio 2.2 (1-3.5); Cholesterol 160 mg/dl (140-200); Estimated Glomerular Filt Rate 82 ml/min (>60); GFR (African American) 99 ML/MIN (>60); Glucose 138 mg/dl (74-100); HDL Cholesterol 73 mg/dl (40-60); Sodium 138 mmol/L (136-145); Total Protein,Serum 6.9 g/dl (6.3-8.2); Triglycerides 200 mg/dl (30-150); VLDL Cholesterol 40 mg/dL (0-40)
[2024-05-03 16:46] LABS: Direct LDL Cholesterol 61.49 mg/dL (100-129)
[2024-05-03 17:27] LABS: Hemoglobin A1C 6.2 % (4.0-6.0)
== END 2024-05-03 23:59 | disposition home or self-care (01) ==
LOC: LAB 15:17
PROVIDERS: PCP Internal Medicine; Visit Provider Internal Medicine
DX: E11.42 Type 2 diabetes mellitus with diabetic polyneuropathy (principal); E11.59 Type 2 diabetes mellitus with other circulatory complications; I10 Essential (primary) hypertension; E78.5 Hyperlipidemia, unspecified; K44.9 Diaphragmatic hernia without obstruction or gangrene; F32.9 Major depressive disorder, single episode, unspecified; R45.89 Other symptoms and signs involving emotional state; R10.13 Epigastric pain; G89.29 Other chronic pain; R91.1 Solitary pulmonary nodule; K22.0 Achalasia of cardia; D18.03 Hemangioma of intra-abdominal structures; I25.10 Atherosclerotic heart disease of native coronary artery without angina pectoris; Z95.1 Presence of aortocoronary bypass graft; Z95.3 Presence of xenogenic heart valve
CPT/HCPCS: 36415; 80053; 80061; 82043; 82570; 83036

== ENCOUNTER 2024-05-11 09:02 | Outpatient (CLI) | payer MEDICARE, OTHER, SELFPAY ==
--- NOTE | 2024-05-11 09:06 | CA_ITS ---
APPROVED REPORT EXAM: Comprehensive 2D, Doppler, and color-flow Echocardiogram Solution Maker: Felecia Chandra, RCS, RVS Ht: 5 ft 0 in Wt: 158lbs BSA: 1.69 BP: 130/76 mmHg Indications: CAD, CABGx 1, AVR, pre-Pacer battery change, NEFTALI, DM 2D Dimensions IVSd 1.09 cm LVEF (Visual) 52.80 % PWd 1.15 cm LA Volume 71.50 mL LVDd 4.62 cm LA Volume Index 41.30 mL/m2 (M/F) 16-34 LVDs 3.37 cm EF AP4 53.40 % GL Strain -11.8 % M-Mode Dimensions RVDd 2.42 cm (0.9-2.6) LA Diam 4.00 cm (1.9-4.0) LVDd 4.53 cm (3.5-5.7) LVDs 3.59 cm (3.5-5.7) IVSd 1.14 cm (0.6-1.1) PWd 1.04 cm (0.6-1.1) EF (Teich) 42.40% EPSs 1.68 cm FS 20.80% EDV (Teich) 93.90 mL TAPSE 1.87 (<1.7) ESV (Teich) 54.10 mL LV Diastology E Decel Time 227 (160-240 msec) E/A Ratio 0.72 MED A' 7.60 cm/s LAT A' 11.00 cm/s Aortic Valve JORY Index 0.99 cm2/m2 AoV Peak Med. 198.0 (50-130 cm/s) AO Peak GR. 15.60 mmHg AO Mean GR. 7.70 (<5 mmHg) AO VTI 40.0 (18-25 cm) JORY (VTI) 1.72 (2.5-4.5 cm2) Mitral Valve MV A Velocity 120.0 (40-130 cm/s) E/A Ratio 0.72 MV Mean Gr. 2.20 (<2mmHg) Pulmonary Valve PV Peak Velocity 98.0 (50-150 cm/s) TN End VMAX 165.0 cm/s Tricuspid Valve TR P. Velocity 246.00 cm/s RAP Estimate 10.00 mmHg RVSP 34.20 mmHg Left Ventricle The left ventricle is normal size. The left ventricular systolic function is low normal. There is increased LV wall thickness. The septum is asynchronous. Transmitral Doppler flow pattern suggests impaired LV relaxation. LVEF 50%. Right Ventricle Right ventricle is mildly dilated. The right ventricular systolic function is normal. There is a device lead in the right ventricle. Atria Left atrium is moderately dilated. Right atrium is moderately dilated. There is no Doppler evidence of interatrial shunt. Aortic Valve s/p bioprosthetic AVR. Peak velocity 2.0 m/s. Mean AV gradient 8 mmHg. Max AV gradient 16 mmHg. Trace aortic regurgitation. Mitral Valve The mitral valve is mildly thickened. No evidence of mitral valve stenosis. Mild mitral regurgitation. Tricuspid Valve The tricuspid valve leaflets are thin and pliable. Moderate tricuspid regurgitation. RVSP is 25-30 mmHg. Pulmonic Valve The pulmonary valve is normal in structure. Mild pulmonic regurgitation. Great Vessels The aortic root is normal in size. The ascending aorta is not well-visualized. IVC is normal in size and collapses >50% with inspiration. Pericardium There is no pericardial effusion. Other Information Study Quality: Fair Conclusion Low normal LV systolic function (LVEF 50%). Mild RV dilation with normal RV function. Biatrial dilation. s/p AVR. Acceptable transaortic gradients (peak velocity 2.0 m/s. Mean AV gradient 8 mmHg. Max AV gradient 16 mmHg). Mild MR. Moderate TR. Electronically signed by : Dori Jalloh MD 05/16/2024 01:22:44
== END 2024-05-11 23:59 | disposition home or self-care (01) ==
LOC: RT 09:03
PROVIDERS: PCP Internal Medicine; Visit Provider Physician Assistant
DX: Z00.8 Encounter for other general examination (principal); Z95.0 Presence of cardiac pacemaker; I51.7 Cardiomegaly
CPT/HCPCS: 93306

== ENCOUNTER 2024-05-16 09:15 | Day surgery (SDC) | payer MEDICARE, OTHER, SELFPAY ==
[2024-05-16] VITALS (7 sets, daily range): BP systolic 100–162; BP diastolic 42–80; PULSE 60–80; RESP 16–20; O2SAT 97–100; BMI 23.4
--- NOTE | 2024-05-16 07:27 | IR_ITS ---
APPROVED REPORT Patient Location: Outpatient PROCEDURES 1. Pocket Revision 2. Removal of old Pacemaker 3. Implant of Permanent Pacemaker INDICATION End of battery life Informed consent was obtained prior to the procedure. COMPLICATIONS None Estimated Blood Loss: Less than 10 ML TECHNIQUE 1% lidocaine with epinephrine used to anesthetize the left anterior aspect of the chest. Scalpel was used to make the initial cutaneous incision and then used to dissect down to the existing pacemaker generator. The generator was removed from the existing pocket. Digital manipulation was required along with intermittent usage of scalpel in order to revise the pocket. The leads were removed from the old generator. The new generator was screwed to the existing leads and secured into place. Electronic interrogation proved acceptable thresholds and voltage within the lead. Antibiotics were used to flush the pocket and the pacemaker was secured using 3-0 silk into the newly revised pocket. Monocryl was used to close the subcutaneous tissue and then wanda were placed on the cutaneous area in order to approximate the incision. Patient was transferred to the postop holding area in stable condition. INTERROGATION Generator Model [id number] Generator Serial number: [id number] Atrial lead model number: 1488 TC 46 cm Atrial lead serial number: [id number] P-wave: 1.5 mV Impedance: 360 Ohms Threshold: Right Ventricular lead model number: [id number] 52 cm Right Ventricular lead serial number: [id number] R-wave: Impedance: 560 Ohms Threshold: 1.25V @ 0.4ms Pacing Parameters: Mode: DDDR Base/Max Track:60 ppm / 130 ppm No diaphragmatic stimulation at 10 volts. Explanted Generator Model: [id number] Generator Serial Number: [id number] IMPRESSION 1. Successful Pocket Revision 2. Successful Removal of old Pacemaker 3. Successful Implant of Permanent Pacemaker PLAN 1. Postop wound care. Electronically signed by : Shakir Chavez MD 05/17/2024 15:18:21
[2024-05-16 10:25] LABS: Basophils % 0.8 % (0.1-2.0); Hematocrit 32.6 % (37.0-47.0); Hemoglobin 10.9 g/dL (12.2-16.2); Lymphocytes # 0.8 K/mm3 (0.7-4.5); Lymphocytes % 23.1 % (10-50); Mean Corpuscular HGB Conc 33.6 g/dL (31.8-35.4); Mean Corpuscular Hemoglobin 33.6 pg (27.0-31.2); Mean Platelet Volume 8.1 fl (7.4-10.4); Monocytes # 0.2 K/mm3 (0.1-1.0); Monocytes % 6.8 % (1.7-9.3); Neutrophils # 2.4 K/mm3 (1.8-7.8); Neutrophils % 68.3 % (37.0-80.0); Platelet Count 206 K/mm3 (142-424); Red Blood Count 3.26 M/mm3 (4.20-5.40); Red Cell Distribution Width 14.5 % (11.5-17.5); White Blood Count 3.6 K/mm3 (4.8-10.8)
[2024-05-16 10:38] LABS: Anion Gap 15.9 mEq/L (5-15); Blood Urea Nitrogen 16 mg/dl (7-17); Calcium 9.7 mg/dl (8.4-10.2); Carbon Dioxide 24 mmol/L (22.0-30.0); Chloride 105 mmol/L (98-107); Creatinine Clearance Estimated 42 mL/min (50-200); Estimated Glomerular Filt Rate 70 ml/min (>60); GFR (African American) 85 ML/MIN (>60); Glucose 102 mg/dl (74-100); Potassium 3.9 mmoL/L (3.5-5.1); Sodium 141 mmol/L (136-145)
[2024-05-16] MEDS: LIDOCAINE 1% W/EPI 1:100,000 20ML VIAL 20 ML SQ (11:40)
[2024-05-16] MEDS: CEFAZOLIN SODIUM 1 GM in 0.9 % SODIUM CHLORIDE 50 ML IV (11:40)
[2024-05-16] MEDS: CEFAZOLIN 1GM VIAL 1 GM TP (11:40)
== END 2024-05-16 13:45 | disposition home or self-care (01) ==
PROVIDERS: PCP Internal Medicine; Visit Provider Internal Medicine
DX: Z45.010 Encounter for checking and testing of cardiac pacemaker pulse generator [battery] (principal); I25.10 Atherosclerotic heart disease of native coronary artery without angina pectoris; Z95.2 Presence of prosthetic heart valve; I65.23 Occlusion and stenosis of bilateral carotid arteries; E78.5 Hyperlipidemia, unspecified
CPT/HCPCS: 33228; 36415; 80048; 85025; C1785

== ENCOUNTER 2024-05-20 09:37 | Emergency (ER) | payer MEDICARE, OTHER, SELFPAY ==
[2024-05-20 09:40] VITALS: BP 151/74; PULSE 71; RESP 16; TEMP 36.9; O2SAT 98; BMI 24.4
--- NOTE | 2024-05-20 09:51 | ED_ITS ---
Discharge Plan Disposition Patient Disposition: Home, Self-Care Condition: Good Chief Complaint: Recheck/Abnormal Lab/Rx Prescriptions Prescriptions: No Action metoprolol succinate 50 mg tablet extended release 24 hr See Rx Instructions .ROUTE .COMPLEX Qty: 90 3RF Dose Instruction: TAKE ONE TABLET BY MOUTH ONCE A DAY FOR HIGH BLOOD PRESSURE Rx Instructions: TAKE ONE TABLET BY MOUTH ONCE A DAY FOR HIGH BLOOD PRESSURE clopidogrel [Plavix] 75 mg tablet 75 mg PO DAILY Qty: 90 1RF amlodipine 5 mg tablet 5 mg PO DAILY Qty: 30 5RF quetiapine [Seroquel] 50 mg tablet 50 mg PO HS Qty: 90 1RF isosorbide mononitrate 30 mg tablet extended release 24 hr 30 mg PO DAILY Qty: 90 1RF metformin 500 mg tablet 500 mg PO BID Qty: 180 1RF atorvastatin 40 mg tablet 40 mg PO DAILY Qty: 90 1RF gabapentin 100 mg capsule 200 mg PO HS Qty: 60 2RF diazepam 2 mg tablet 2 mg PO TID Qty: 90 2RF fluticasone propionate 50 mcg/actuation spray,suspension 2 spray intranasal DAILY Qty: 16 5RF omeprazole 20 mg capsule,delayed release(DR/EC) 20 mg PO DAILY Qty: 90 1RF venlafaxine 37.5 mg tablet 37.5 mg PO BID Qty: 180 1RF calcium carbonate-vitamin D3 500 mg-2.5 mcg (100 unit) tablet,chewable 1 tab PO BID cholecalciferol (vitamin D3) 50 mcg (2,000 unit) tablet 2,000 unit PO DAILY famotidine 20 mg tablet 20 mg PO DAILY aspirin 81 mg tablet,chewable 81 mg PO DAILY Referrals Follow up/Referrals: Provider,Referral, MD [Primary Care Provider] - See instructions Activity Restrictions/Add. Instructions Additional Instructions/Restrictions: Return to the emergency department for any new or worsening symptoms including generalized weakness. Clinical Impressions Clinical Impression: Anxiety about health Print Language Print Language: Thai Discharge ED Provider: Edie Ceballos General Adult HPI General Chief complaint: Recheck/Abnormal Lab/Rx Stated complaint: possible overdose Time Seen by Provider: 05/20/24 09:42 Mode of Arrival: EMS Source of Information: Patient and EMS Limitations: No Limitations Description of Symptoms (Recalled from ER Triage Doc. by RN): pt took a double dose of her night time medications. History of Present Illness HPI narrative: Patient is a 73-year-old past medical history significant for anxiety hypertension type 2 diabetes with neuropathy depression coronary artery disease status post CABG presents to the emergency department after taking her morning meds at 2:30 in the morning which is 3 hours earlier than she normally takes them. Per chart review patient takes amlodipine 5 mg aspirin 81 mg calcium carbonate vitamin D clopidogrel diazepam 2 mg famotidine 20 mg isosorbide mononitrate 30 mg metformin 500 mg metoprolol 50 mg omeprazole 20 mg and venlafaxine 37.5 mg in the morning. She took her morning meds early because she woke up and it was darker side so she thought that it was time to take her medicines. Patient took 50 mg of Seroquel at 5:30 AM and her atorvastatin 40 mg at 5:30 AM because she got confused even though her Seroquel is supposed to be at nighttime. Patient is asymptomatic but she was concerned that if she took her medicines too early than she would have a side effect so wanted to be evaluated in the emergency department. Related Data Home Medications ?Medication ?Instructions ?Recorded ?Confirmed aspirin 81 mg chewable tablet 81 mg PO DAILY 07/21/23 05/20/24 calcium 500 mg (as carbonate)-D3 1 tab PO BID 07/21/23 05/20/24 2.5 mcg (100 unit) chewable tablet cholecalciferol (vitamin D3) 50 2,000 unit PO DAILY 07/21/23 05/20/24 mcg (2,000 unit) tablet famotidine 20 mg tablet 20 mg PO DAILY 07/21/23 05/20/24 Previous Rx's ?Medication ?Instructions ?Recorded metoprolol succinate 50 mg See Rx Instructions .Route 10/11/23 tablet,extended release 24 hr .COMPLEX #90 tabs clopidogrel 75 mg tablet (Plavix) 75 mg PO DAILY #90 tabs 12/10/23 amlodipine 5 mg tablet 5 mg PO DAILY #30 tabs 02/11/24 quetiapine 50 mg tablet (Seroquel) 50 mg PO HS #90 tabs 02/12/24 atorvastatin 40 mg tablet 40 mg PO DAILY #90 tabs 04/11/24 gabapentin 100 mg capsule 200 mg (2 x 100 mg) PO HS #60 caps 04/11/24 isosorbide mononitrate 30 mg 30 mg PO DAILY #90 tabs 04/11/24 tablet,extended release 24 hr metformin 500 mg tablet 500 mg PO BID #180 tabs 04/11/24 diazepam 2 mg tablet 2 mg PO TID #90 tabs 05/15/24 fluticasone propionate 50 2 spray intranasal DAILY #16 grams 05/15/24 mcg/actuation nasal spray,suspension omeprazole 20 mg capsule,delayed 20 mg PO DAILY #90 caps 05/15/24 release venlafaxine 37.5 mg tablet 37.5 mg PO BID mood #180 tabs 05/15/24 Allergies Allergy/AdvReac Type Severity Reaction Status Date / Time codeine [CODEINE] Allergy Unknown WEAK Verified 05/20/24 09:49 hydrochlorothiazide Allergy Unknown I-RASH Verified 05/20/24 09:49 [HYDROCHLOROTHIAZIDE] hydrocodone [HYDROCODONE] Allergy Unknown I-RASH Verified 05/20/24 09:49 metoclopramide Allergy Unknown SLURRED Verified 05/20/24 09:49 [METOCLOPRAMIDE] SPEECH, WEAK nifedipine [NIFEDIPINE] Allergy Unknown I-HIVES Verified 05/20/24 09:49 prazosin [PRAZOSIN] Allergy Unknown ITCHING/WEA Verified 05/20/24 09:49 K triamterene [TRIAMTERENE] Allergy Unknown I-RASH [facility]/20/24 09:[facility] Dis[facility]: The information contained in this section may have been updated after the patient was seen, as this information can be updated by other users. Medical History (Updated 05/20/24 @ 10:00 by Edie Ceballos MD) Chronic abdominal pain Type 2 diabetes mellitus Anxiety Gastro-esophageal reflux disease without esophagitis Grief reaction Stricture and stenosis of esophagus Esophageal thickening Esophageal thickening Femur fracture, left History of left heart catheterization Coronary artery disease Carotid artery stenosis Surgical History History of permanent cardiac pacemaker placement S/P CABG x 1 Status post aortic valve replacement with bioprosthetic valve Family History Other Family history of cancer Family history of diabetes mellitus type II Family history of hypertension Family history of myocardial infarction Social History (Updated 05/16/24 @ 09:38 by Nazanin Villalba RN) Smoking Status: Never smoker second hand exposure: Yes alcohol intake: never substance use type: denies use current occupational status: retired Travel in the last 8 weeks: None household members: none housing: apartment lives independently: Yes marital status: single education level: middle school service: No long term: No current occupational exposures/hazards: No caffeine: Yes do you feel safe at home: Yes victim of physical abuse: No victim of emotional abuse: No victim of sexual abuse: No would you like helpful sources: No Other Medical History Have you received the Flu Vaccine for this season: No Have you received the Pneumonia Vaccine: Yes ROS Obtained: Yes All systems reviewed & no additional complaints except as documented Physical Exam General General appearance: alert and in no apparent distress Head Head exam: normocephalic and normal inspection Eye Eye exam: Present normal appearance, PERRL and EOMI ENT ENT exam: Present normal exam and normal oropharynx Respiratory Respiratory exam: Present normal lung sounds bilaterally; Absent respiratory distress Cardiovascular Cardiovascular exam: Present regular rate and normal rhythm Abdominal Exam Abdominal exam: Present soft; Absent distention, tenderness or guarding Extremities Exam Extremities exam: Present normal inspection and full ROM Back Exam Back exam: Present normal inspection Neurological Exam Neurological exam: Present alert and oriented X3 Psychiatric Psychiatric exam: Present normal affect and normal mood Medical Decision Making Medical Records Screening: Per USPSTF and CDC recommendations, given the prevalence of disease in our region, it is our hospital?s policy to screen for HIV and viral Hepatitis for all patients aged 18 and over and those with ongoing risk factors. Chet Inquiry Pt receiving controlled substance: No Vital Signs: 05/20/24 09:40 Temperature 98.4 F Temperature Source Oral Pulse Rate [Right] 71 Respiratory Rate 16 Blood Pressure [Right Arm] 151/74 H Blood Pressure Mean [Right Arm] 99 02 Sat by Pulse Oximetry 98 Oxygen Delivery Method Room Air Medical Decision Narrative: In summary, this 73-year-old presents to the emergency department today with concern that she took her medications improperly. On initial evaluation patient is hemodynamically stable saturating appropriately on room air afebrile no acute distress. Patient is asymptomatic at this time hemodynamically stable no indications for further workup at this time as patient's medications were only taken a few hours earlier than patient normally takes her medications. I recommended that she could still take her Seroquel tonight and to take her diazepam 2 mg that is scheduled 3 times daily tonight. Strict return precautions including feeling sleepier than normal or weak were given. Patient amenable to discharge at this time Of note, social determinants of health include poor social support Critical Care Critical Care Time Critical Care Time: No
--- NOTE | 2024-05-20 09:54 | ED_ITS ---
Discharge Plan Disposition Chief Complaint: Recheck/Abnormal Lab/Rx Prescriptions Prescriptions: No Action metoprolol succinate 50 mg tablet extended release 24 hr See Rx Instructions .ROUTE .COMPLEX Qty: 90 3RF Dose Instruction: TAKE ONE TABLET BY MOUTH ONCE A DAY FOR HIGH BLOOD PRESSURE Rx Instructions: TAKE ONE TABLET BY MOUTH ONCE A DAY FOR HIGH BLOOD PRESSURE clopidogrel [Plavix] 75 mg tablet 75 mg PO DAILY Qty: 90 1RF amlodipine 5 mg tablet 5 mg PO DAILY Qty: 30 5RF quetiapine [Seroquel] 50 mg tablet 50 mg PO HS Qty: 90 1RF isosorbide mononitrate 30 mg tablet extended release 24 hr 30 mg PO DAILY Qty: 90 1RF metformin 500 mg tablet 500 mg PO BID Qty: 180 1RF atorvastatin 40 mg tablet 40 mg PO DAILY Qty: 90 1RF gabapentin 100 mg capsule 200 mg PO HS Qty: 60 2RF diazepam 2 mg tablet 2 mg PO TID Qty: 90 2RF fluticasone propionate 50 mcg/actuation spray,suspension 2 spray intranasal DAILY Qty: 16 5RF omeprazole 20 mg capsule,delayed release(DR/EC) 20 mg PO DAILY Qty: 90 1RF venlafaxine 37.5 mg tablet 37.5 mg PO BID Qty: 180 1RF calcium carbonate-vitamin D3 500 mg-2.5 mcg (100 unit) tablet,chewable 1 tab PO BID cholecalciferol (vitamin D3) 50 mcg (2,000 unit) tablet 2,000 unit PO DAILY famotidine 20 mg tablet 20 mg PO DAILY aspirin 81 mg tablet,chewable 81 mg PO DAILY Referrals Follow up/Referrals: Provider,Referral, MD [Primary Care Provider] - See instructions Print Language Print Language: Belarusian Discharge ED Provider: Edie Ceballos General Adult HPI General Chief complaint: Recheck/Abnormal Lab/Rx Stated complaint: possible overdose Time Seen by Provider: 05/20/24 09:42 Mode of Arrival: EMS Source of Information: Patient and EMS Limitations: No Limitations Description of Symptoms (Recalled from ER Triage Doc. by RN): pt took a double dose of her night time medications. Related Data Home Medications ?Medication ?Instructions ?Recorded ?Confirmed aspirin 81 mg chewable tablet 81 mg PO DAILY 07/21/23 05/20/24 calcium 500 mg (as carbonate)-D3 1 tab PO BID 07/21/23 05/20/24 2.5 mcg (100 unit) chewable tablet cholecalciferol (vitamin D3) 50 2,000 unit PO DAILY 07/21/23 05/20/24 mcg (2,000 unit) tablet famotidine 20 mg tablet 20 mg PO DAILY 07/21/23 05/20/24 Previous Rx's ?Medication ?Instructions ?Recorded metoprolol succinate 50 mg See Rx Instructions .Route 10/11/23 tablet,extended release 24 hr .COMPLEX #90 tabs clopidogrel 75 mg tablet (Plavix) 75 mg PO DAILY #90 tabs 12/10/23 amlodipine 5 mg tablet 5 mg PO DAILY #30 tabs 02/11/24 quetiapine 50 mg tablet (Seroquel) 50 mg PO HS #90 tabs 02/12/24 atorvastatin 40 mg tablet 40 mg PO DAILY #90 tabs 04/11/24 gabapentin 100 mg capsule 200 mg (2 x 100 mg) PO HS #60 caps 04/11/24 isosorbide mononitrate 30 mg 30 mg PO DAILY #90 tabs 04/11/24 tablet,extended release 24 hr metformin 500 mg tablet 500 mg PO BID #180 tabs 04/11/24 diazepam 2 mg tablet 2 mg PO TID #90 tabs 05/15/24 fluticasone propionate 50 2 spray intranasal DAILY #16 grams 05/15/24 mcg/actuation nasal spray,suspension omeprazole 20 mg capsule,delayed 20 mg PO DAILY #90 caps 05/15/24 release venlafaxine 37.5 mg tablet 37.5 mg PO BID mood #180 tabs 05/15/24 Allergies Allergy/AdvReac Type Severity Reaction Status Date / Time codeine [CODEINE] Allergy Unknown WEAK Verified 05/20/24 09:49 hydrochlorothiazide Allergy Unknown I-RASH Verified 05/20/24 09:49 [HYDROCHLOROTHIAZIDE] hydrocodone [HYDROCODONE] Allergy Unknown I-RASH Verified 05/20/24 09:49 metoclopramide Allergy Unknown SLURRED Verified 05/20/24 09:49 [METOCLOPRAMIDE] SPEECH, WEAK nifedipine [NIFEDIPINE] Allergy Unknown I-HIVES Verified 05/20/24 09:49 prazosin [PRAZOSIN] Allergy Unknown ITCHING/WEA Verified 05/20/24 09:49 K triamterene [TRIAMTERENE] Allergy Unknown I-RASH Verified 05/20/24 09:49 [facility] Disclaimer: The information contained in this section may have been updated after the patient was seen, as this information can be updated by other users. Medical History Chronic abdominal pain Type 2 diabetes mellitus Anxiety Gastro-esophageal reflux disease without esophagitis Grief reaction Stricture and stenosis of esophagus Esophageal thickening Esophageal thickening Femur fracture, left History of left heart catheterization Coronary artery disease Carotid artery stenosis Surgical History History of permanent cardiac pacemaker placement S/P CABG x 1 Status post aortic valve replacement with bioprosthetic valve Family History Other Family history of cancer Family history of diabetes mellitus type II Family history of hypertension Family history of myocardial infarction Social History (Updated 05/16/24 @ 09:38 by Nazanin Villalba RN) Smoking Status: Never smoker second hand exposure: Yes alcohol intake: never substance use type: denies use current occupational status: retired Travel in the last 8 weeks: None household members: none housing: apartment lives independently: Yes marital status: single education level: middle school service: No assisted: No current occupational exposures/hazards: No caffeine: Yes do you feel safe at home: Yes victim of physical abuse: No victim of emotional abuse: No victim of sexual abuse: No would you like helpful sources: No Other Medical History Have you received the Flu Vaccine for this season: No Have you received the Pneumonia Vaccine: Yes Medical Decision Making Medical Records Screening: Per USPSTF and CDC recommendations, given the prevalence of disease in our region, it is our hospital?s policy to screen for HIV and viral Hepatitis for all patients aged 18 and over and those with ongoing risk factors. Vital Signs: 05/20/24 09:40 Temperature 98.4 F Temperature Source Oral Pulse Rate [Right] 71 Respiratory Rate 16 Blood Pressure [Right Arm] 151/74 H Blood Pressure Mean [Right Arm] 99 02 Sat by Pulse Oximetry 98 Oxygen Delivery Method Room Air
[2024-05-20 10:05] VITALS: BP 154/71; PULSE 70; RESP 16; TEMP 36.9; O2SAT 98
== END 2024-05-20 10:10 | disposition home or self-care (01) ==
PROVIDERS: Emergency Provider Student in an Organized Health Care Education/Training Program
DX: R45.89 Other symptoms and signs involving emotional state (principal)
CPT/HCPCS: 99282

== ENCOUNTER 2024-05-26 10:19 | Outpatient (CLI) | payer MEDICARE, OTHER, SELFPAY ==
--- NOTE | 2024-05-26 10:23 | CA_ITS ---
FINAL REPORT TECHNIQUE: Color Doppler, duplex Doppler and holguin scale sonography of the bilateral neck vasculature was performed. Velocities were measured in the carotid arteries. Stenosis evaluation based on velocity criteria. CLINICAL HISTORY: NEFTALI, HTN, HLD, DM, dizziness, CAD. COMPARISON: None FINDINGS: The peak systolic velocity of the right common carotid artery is 82 cm/sec and internal carotid artery 150 cm/sec. The diastolic velocity in the internal carotid artery is 46 cm/sec. The ICA/CCA ratio is 1.8. Visually, a moderate amount of plaque is seen. These findings are consistent with less than 50% stenosis. The external carotid artery is patent. The right vertebral artery is patent with antegrade flow. The peak systolic velocity of the left common carotid artery is 96 cm/sec and internal carotid artery 96 cm/sec. The diastolic velocity in the internal carotid artery is 27 cm/sec. The ICA/CCA ratio is 1.0. Visually, a moderate amount of plaque is seen. These findings are consistent with less than 50% stenosis. The external carotid artery is patent. The left vertebral artery is patent with antegrade flow. IMPRESSION: Less than 50% stenosis of the carotid arteries bilaterally. Bilateral patent vertebral arteries. If indicated, CTA or catheter angiography could further evaluate. Reviewed, Interpreted and Dictated by Juan Cabrera III, MD Transcribed by Darling Hernandez Authenticated and [facility]
== END 2024-05-26 23:59 | disposition home or self-care (01) ==
LOC: RT 10:20
PROVIDERS: PCP Internal Medicine; Visit Provider Physician Assistant
DX: R09.89 Other specified symptoms and signs involving the circulatory and respiratory systems (principal)
CPT/HCPCS: 93880

== ENCOUNTER 2024-06-06 14:23 | Emergency (ER) | payer MEDICARE, OTHER, SELFPAY ==
--- NOTE | 2024-06-06 14:07 | ED_ITS ---
Discharge Plan Disposition Patient Disposition: Home, Self-Care Condition: Good Prescriptions Prescriptions: New [id number]-[id number]-NP [Bromfed DM] 2-30-10 mg/5 mL syrup 5 ml PO Q4H PRN (Reason: sinus symptoms) Qty: 118 0RF No Action metoprolol succinate 50 mg tablet extended release 24 hr See Rx Instructions .ROUTE .COMPLEX Qty: 90 3RF Dose Instruction: TAKE ONE TABLET BY MOUTH ONCE A DAY FOR HIGH BLOOD PRESSURE Rx Instructions: TAKE ONE TABLET BY MOUTH ONCE A DAY FOR HIGH BLOOD PRESSURE clopidogrel [Plavix] 75 mg tablet 75 mg PO DAILY Qty: 90 1RF amlodipine 5 mg tablet 5 mg PO DAILY Qty: 30 5RF quetiapine [Seroquel] 50 mg tablet 50 mg PO HS Qty: 90 1RF isosorbide mononitrate 30 mg tablet extended release 24 hr 30 mg PO DAILY Qty: 90 1RF metformin 500 mg tablet 500 mg PO BID Qty: 180 1RF atorvastatin 40 mg tablet 40 mg PO DAILY Qty: 90 1RF gabapentin 100 mg capsule 200 mg PO HS Qty: 60 2RF diazepam 2 mg tablet 2 mg PO TID Qty: 90 2RF fluticasone propionate 50 mcg/actuation spray,suspension 2 spray intranasal DAILY Qty: 16 5RF omeprazole 20 mg capsule,delayed release(DR/EC) 20 mg PO DAILY Qty: 90 1RF venlafaxine 37.5 mg tablet 37.5 mg PO BID Qty: 180 1RF calcium carbonate-vitamin D3 500 mg-2.5 mcg (100 unit) tablet,chewable 1 tab PO BID cholecalciferol (vitamin D3) 50 mcg (2,000 unit) tablet 2,000 unit PO DAILY famotidine 20 mg tablet 20 mg PO DAILY aspirin 81 mg tablet,chewable 81 mg PO DAILY Referrals Follow up/Referrals: Oh Baker DO [Staff Physician] - See instructions (Left knee injury joint effusion) Activity Restrictions/Add. Instructions Additional Instructions/Restrictions: We referred you to orthopedics. Please call tomorrow to make your appointment. I have sent Bromfed into your pharmacy to help with your upper respiratory symptoms. 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 She has been ambulatory and has no numbness or tingling but reports it is very painful. She denies any other injury and not strike her head or lose consciousness. Patient also reports that she has been having congestion cough but no chest pain shortness of breath sore throat increased work of breathing. Related Data Home Medications ?Medication ?Instructions ?Recorded ?Confirmed aspirin 81 mg chewable tablet 81 mg PO DAILY 07/21/23 06/05/24 calcium 500 mg (as carbonate)-D3 1 tab PO BID 07/21/23 06/05/24 2.5 mcg (100 unit) chewable tablet cholecalciferol (vitamin D3) 50 2,000 unit PO DAILY 07/21/23 06/05/24 mcg (2,000 unit) tablet famotidine 20 mg tablet 20 mg PO DAILY 07/21/23 06/05/24 Previous Rx's ?Medication ?Instructions ?Recorded metoprolol succinate 50 mg See Rx Instructions .Route 10/11/23 tablet,extended release 24 hr .COMPLEX #90 tabs clopidogrel 75 mg tablet (Plavix) 75 mg PO DAILY #90 tabs 12/10/23 amlodipine 5 mg tablet 5 mg PO DAILY #30 tabs 02/11/24 quetiapine 50 mg tablet (Seroquel) 50 mg PO HS #90 tabs 02/12/24 atorvastatin 40 mg tablet 40 mg PO DAILY #90 tabs 04/11/24 gabapentin 100 mg capsule 200 mg (2 x 100 mg) PO HS #60 caps 04/11/24 isosorbide mononitrate 30 mg 30 mg PO DAILY #90 tabs 04/11/24 tablet,extended release 24 hr metformin 500 mg tablet 500 mg PO BID #180 tabs 04/11/24 diazepam 2 mg tablet 2 mg PO TID #90 tabs 05/15/24 fluticasone propionate 50 2 spray intranasal DAILY #16 grams 05/15/24 mcg/actuation nasal spray,suspension omeprazole 20 mg capsule,delayed 20 mg PO DAILY #90 caps 05/15/24 release venlafaxine 37.5 mg tablet 37.5 mg PO BID mood #180 tabs 05/15/24 vrhqxgwfteelryx-xucassjrhpgchcd-NN 5 ml PO Q4H PRN sinus symptoms 06/06/24 2 mg-30 mg-10 mg/5 mL oral syrup #118 mL (Bromfed DM) Allergies Allergy/AdvReac Type Severity Reaction Status Date / Time codeine (CODEINE) Allergy Unknown WEAK Verified 06/05/24 14:13 hydrochlorothiazide Allergy Unknown I-RASH Verified 06/05/24 14:13 (HYDROCHLOROTHIAZIDE) hydrocodone (HYDROCODONE) Allergy Unknown I-RASH Verified 06/05/24 14:13 metoclopramide Allergy Unknown SLURRED Verified 06/05/24 14:13 (METOCLOPRAMIDE) SPEECH, WEAK nifedipine (NIFEDIPINE) Allergy Unknown I-HIVES Verified 06/05/24 14:13 prazosin (PRAZOSIN) Allergy Unknown ITCHING/WEA Verified 06/05/24 14:13 K triamterene (TRIAMTERENE) Allergy Unknown I-RASH Verified 06/05/24 14:13 [facility] <ANJUM Pascual - Last Filed: 06/06/24 20:04> [facility] Disclaimer: The information contained in this section may have been updated after the patient was seen, as this information can be updated by other users. 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 Family History Other Family history of cancer Family history of diabetes mellitus type II Family history of hypertension Family history of myocardial infarction Social History (Updated 06/05/24 @ 17:13 by Hansel Ruff MD) Smoking Status: Never smoker second hand exposure: Yes alcohol intake: never substance use type: denies use current occupational status: retired household members: none housing: apartment lives independently: Yes marital status: single education level: middle school service: No mcc: No current occupational exposures/hazards: No caffeine: Yes do you feel safe at home: Yes victim of physical abuse: No victim of emotional abuse: No victim of sexual abuse: No would you like helpful sources: No Other Medical History Have you received the Flu Vaccine for this season: No Have you received the Pneumonia Vaccine: Yes <ANJUM Pascual - Last Filed: 06/06/24 20:04> ROS Obtained: Yes Systems reviewed as appropriate & no additional complaints except as documented Physical Exam <ANJUM Pascual - Last Filed: 06/06/24 20:04> General General appearance: alert and in no apparent distress Respiratory Respiratory exam: Present normal lung sounds bilaterally Cardiovascular Cardiovascular exam: Present regular rate Neurological Exam Neurological exam: Present alert and oriented X3 Medical Decision Making <ANJUM Pascual - Last Filed: 06/06/24 20:04> Medical Records Medical records reviewed: Yes I reviewed the patient's medical records. Screening: Per USPSTF and CDC recommendations, given the prevalence of disease in our region, it is our hospital?s policy to screen for HIV and viral Hepatitis for all patients aged 18 and over and those with ongoing risk factors. Chet Inquiry Pt receiving controlled substance: No Vital Signs: 06/06/24 14:23 06/06/24 15:49 Temperature 98.5 F 98.0 F Temperature Source Oral Oral Pulse Rate 80 Pulse Rate [Left Radial] 74 Respiratory Rate 20 18 Blood Pressure 120/80 Blood Pressure [Right Arm] 130/78 Blood Pressure Mean [Right Arm] 95 Blood Pressure Source Automatic Cuff 02 Sat by Pulse Oximetry 96 Oxygen Delivery Method Room Air Room Air Lab Data Lab results reviewed: Yes I reviewed the patient's lab results. Lab Results 06/06/24 14:38: SARS-CoV-2 (PCR) Not detected, Influenza A Untype (PCR) Not detected, Influenza Type B (PCR) Not detected Orders (Tests/Meds): ED MEDICATIONS Discontinued Medications Generic Name Dose Route Start Last Admin Trade Name Freq PRN Reason Stop Dose Admin Acetaminophen 1,000 mg 06/06/24 14:16 06/06/24 14:30 Acetaminophen 500mg Tab PO 06/06/24 14:17 1,000 mg ONCE ONE Administration Ibuprofen 800 mg 06/06/24 14:16 06/06/24 14:30 Ibuprofen 400 Mg Tablet PO 06/06/24 14:17 800 mg ONCE ONE Administration ORDERS Category Date Time Status Knee XR left 3 views [XR knee LT 3V] Stat Exams 06/06/24 14:14 Completed Rapid PCR Covid and Flu A/B Stat Lab 06/06/24 14:38 Completed Medical Decision Narrative: In summary patient is a 73-year-old female who presents to the emergency department for evaluation of left knee injury and upper respiratory tract infection symptoms. Patient is hemodynamically stable upon arrival, afebrile. Physical exam is remarkable for boggy nasal mucosa that is erythematous with a normal posterior pharynx and no cervical lymphadenopathy clear breath sounds. The left knee is swollen but no visible ecchymosis or abrasions is very tender to palpation posteriorly. Differential diagnosis includes viral versus bacterial upper respiratory tract infection versus fracture versus knee sprain etc. Initial workup will be conducted with COVID and flu swabs plain film x-ray. Initial interventions include Tylenol and ibuprofen. Initial workup reviewed by me shows her COVID and flu swabs are negative and my informal interpretation of her plain film x-ray shows no bony injury but does show a large joint effusion. Upon repeat evaluation had modest improvement in her pain after Tylenol and Motrin. Given this patient is appropriate for discharge with referral to orthopedics for her knee and a prescription for Bromfed sent into her pharmacy and instructions to continue taking Tylenol Motrin for constitutional symptoms. <Lennox Conrad MD - Last Filed: 06/07/24 08:28> Vital Signs: 06/06/24 14:23 06/06/24 15:49 Temperature 98.5 F 98.0 F Temperature Source Oral Oral Pulse Rate 80 Pulse Rate [Left Radial] 74 Respiratory Rate 20 18 Blood Pressure 120/80 Blood Pressure [Right Arm] 130/78 Blood Pressure Mean [Right Arm] 95 Blood Pressure Source Automatic Cuff 02 Sat by Pulse Oximetry 96 Oxygen Delivery Method Room Air Room Air Lab Data Lab Results 06/06/24 14:38: SARS-CoV-2 (PCR) Not detected, Influenza A Untype (PCR) Not detected, Influenza Type B (PCR) Not detected Orders (Tests/Meds): ED MEDICATIONS Discontinued Medications Generic Name Dose Route Start Last Admin Trade Name Juan F PRN Reason Stop Dose Admin Acetaminophen 1,000 mg 06/06/24 14:16 06/06/24 14:30 Acetaminophen 500mg Tab PO 06/06/24 14:17 1,000 mg ONCE ONE Administration Ibuprofen 800 mg 06/06/24 14:16 06/06/24 14:30 Ibuprofen 400 Mg Tablet PO 06/06/24 14:17 800 mg ONCE ONE Administration ORDERS Category Date Time Status Knee XR left 3 views [XR knee LT 3V] Stat Exams 06/06/24 14:14 Completed Rapid PCR Covid and Flu A/B Stat Lab 06/06/24 14:38 Completed Medical Decision Narrative: In summary patient is a 73-year-old female who presents to the emergency department for evaluation of left knee injury and upper respiratory tract infection symptoms. Patient is hemodynamically stable upon arrival, afebrile. Physical exam is remarkable for boggy nasal mucosa that is erythematous with a normal posterior pharynx and no cervical lymphadenopathy clear breath sounds. The left knee is swollen but no visible ecchymosis or abrasions is very tender to palpation posteriorly. Differential diagnosis includes viral versus bacterial upper respiratory tract infection versus fracture versus knee sprain etc. Initial workup will be conducted with COVID and flu swabs plain film x-ray. Initial interventions include Tylenol and ibuprofen. Initial workup reviewed by me shows her COVID and flu swabs are negative and my informal interpretation of her plain film x-ray shows no bony injury but does show a large joint effusion. Upon repeat evaluation had modest improvement in her pain after Tylenol and Motrin. Given this patient is appropriate for discharge with referral to orthopedics for her knee and a prescription for Bromfed sent into her pharmacy and instructions to continue taking Tylenol Motrin for constitutional symptoms. I watched patient ambulate from EMS stretcher to chair without issue. Did not appear to be in any discomfort. I was consulted by the [place], and we discussed the complexity of the problems being addressed. I approved the treatment and management plan for this patient's care in the Emergency Department, thus performing a substantive portion of the medical decision making. Lennox Conrad MD Critical Care <ANJUM Pascual - Last Filed: 06/06/24 20:04> Critical Care Time Critical Care Time: No
--- NOTE | 2024-06-06 14:14 | XR_ITS ---
FINAL REPORT CLINICAL HISTORY: Fell, pain behind the knee FINDINGS: AP, lateral and oblique views of the left knee were obtained. There is no prior exam for comparison. There is no acute osseous abnormality of the left knee. There is degenerative joint disease. The bones are osteopenic. Large joint effusion is identified. IMPRESSION: Large joint effusion. Consider MRI. Reviewed, Interpreted and Dictated by Yen Alatorre MD Transcribed by Tana Anderson Authenticated and [facility]
[2024-06-06 14:23] VITALS: BP 130/78; PULSE 74; RESP 20; TEMP 36.9; O2SAT 96; BMI 22.9
[2024-06-06] MEDS: ACETAMINOPHEN 500MG TAB 1000 MG PO (14:30)
[2024-06-06] MEDS: IBUPROFEN 400 MG TABLET 800 MG PO (14:30)
[2024-06-06 14:42] LABS: Coronavirus 19, PCR Not Detected (NotDetected); Influenza A, PCR Not Detected (NotDetected); Influenza B, PCR Not Detected (NotDetected)
[2024-06-06 15:49] VITALS: BP 120/80; PULSE 80; RESP 18; TEMP 36.7; O2SAT 98
== END 2024-06-06 15:52 | disposition home or self-care (01) ==
PROVIDERS: Physician Assistant; Emergency Provider Emergency Medicine; PCP Internal Medicine
DX: M25.462 Effusion, left knee (principal); J06.9 Acute upper respiratory infection, unspecified; M25.562 Pain in left knee; R09.81 Nasal congestion; R05.9 Cough, unspecified; V78.4XXA Person boarding or alighting from bus injured in noncollision transport accident, initial encounter; Y93.89 Activity, other specified; Y92.9 Unspecified place or not applicable
CPT/HCPCS: 73562; 87636; 99284

== ENCOUNTER 2024-06-10 12:58 | Emergency (ER) | payer MEDICARE, OTHER, SELFPAY ==
--- NOTE | 2024-06-10 13:42 | ED_ITS ---
Discharge Plan Disposition Patient Disposition: Home, Self-Care Condition: Good Prescriptions Prescriptions: New amoxicillin 875 mg tablet 875 mg PO Q12H Qty: 20 0RF benzonatate 100 mg capsule 100 mg PO TIDP PRN (Reason: Cough) Qty: 30 0RF No Action metoprolol succinate 50 mg tablet extended release 24 hr See Rx Instructions .ROUTE .COMPLEX Qty: 90 3RF Dose Instruction: TAKE ONE TABLET BY MOUTH ONCE A DAY FOR HIGH BLOOD PRESSURE Rx Instructions: TAKE ONE TABLET BY MOUTH ONCE A DAY FOR HIGH BLOOD PRESSURE clopidogrel [Plavix] 75 mg tablet 75 mg PO DAILY Qty: 90 1RF amlodipine 5 mg tablet 5 mg PO DAILY Qty: 30 5RF quetiapine [Seroquel] 50 mg tablet 50 mg PO HS Qty: 90 1RF isosorbide mononitrate 30 mg tablet extended release 24 hr 30 mg PO DAILY Qty: 90 1RF metformin 500 mg tablet 500 mg PO BID Qty: 180 1RF atorvastatin 40 mg tablet 40 mg PO DAILY Qty: 90 1RF gabapentin 100 mg capsule 200 mg PO HS Qty: 60 2RF diazepam 2 mg tablet 2 mg PO TID Qty: 90 2RF fluticasone propionate 50 mcg/actuation spray,suspension 2 spray intranasal DAILY Qty: 16 5RF omeprazole 20 mg capsule,delayed release(DR/EC) 20 mg PO DAILY Qty: 90 1RF venlafaxine 37.5 mg tablet 37.5 mg PO BID Qty: 180 1RF calcium carbonate-vitamin D3 500 mg-2.5 mcg (100 unit) tablet,chewable 1 tab PO BID cholecalciferol (vitamin D3) 50 mcg (2,000 unit) tablet 2,000 unit PO DAILY famotidine 20 mg tablet 20 mg PO DAILY aspirin 81 mg tablet,chewable 81 mg PO DAILY [id number] [Bromfed DM] 2-30-10 mg/5 mL syrup 5 ml PO Q4H PRN (Reason: sinus symptoms) Qty: 118 0RF Referrals Follow up/Referrals: Hansel Ruff MD [Primary Care Provider] - See instructions Activity Restrictions/Add. Instructions Additional Instructions/Restrictions: Drink plenty of fluids. Take tylenol or ibuprofen for pain or fever. Take the medications as directed. Follow up with your regular doctor. GO TO THE ER FOR ANY WORSENING SYMPTOMS Clinical Impressions Clinical Impression: Acute left otitis media, Sinusitis Instructions Patient Instructions: Middle Ear Infection, DI for Sinusitis Print Language Print Language: Cypriot Discharge ED Provider: Trevor Mccray [facility] General Stated complaint: cough congestion Time Seen by Provider: 06/10/24 13:41 Related Data Home Medications ?Medication ?Instructions ?Recorded ?Confirmed aspirin 81 mg chewable tablet 81 mg PO DAILY 07/21/23 06/05/24 calcium 500 mg (as carbonate)-D3 1 tab PO BID 07/21/23 06/05/24 2.5 mcg (100 unit) chewable tablet cholecalciferol (vitamin D3) 50 2,000 unit PO DAILY 07/21/23 06/05/24 mcg (2,000 unit) tablet famotidine 20 mg tablet 20 mg PO DAILY 07/21/23 06/05/24 Previous Rx's ?Medication ?Instructions ?Recorded metoprolol succinate 50 mg See Rx Instructions .Route 10/11/23 tablet,extended release 24 hr .COMPLEX #90 tabs clopidogrel 75 mg tablet (Plavix) 75 mg PO DAILY #90 tabs 12/10/23 amlodipine 5 mg tablet 5 mg PO DAILY #30 tabs 02/11/24 quetiapine 50 mg tablet (Seroquel) 50 mg PO HS #90 tabs 02/12/24 atorvastatin 40 mg tablet 40 mg PO DAILY #90 tabs 04/11/24 gabapentin 100 mg capsule 200 mg (2 x 100 mg) PO HS #60 caps 04/11/24 isosorbide mononitrate 30 mg 30 mg PO DAILY #90 tabs 04/11/24 tablet,extended release 24 hr metformin 500 mg tablet 500 mg PO BID #180 tabs 04/11/24 diazepam 2 mg tablet 2 mg PO TID #90 tabs 05/15/24 fluticasone propionate 50 2 spray intranasal DAILY #16 grams 05/15/24 mcg/actuation nasal spray,suspension omeprazole 20 mg capsule,delayed 20 mg PO DAILY #90 caps 05/15/24 release venlafaxine 37.5 mg tablet 37.5 mg PO BID mood #180 tabs 05/15/24 quttfypfxvglugv-yrenpbulccnsxfi-[id number] 5 ml PO Q4H PRN sinus symptoms 06/06/24 2 mg-30 mg-10 mg/5 mL oral syrup #118 mL (Bromfed DM) amoxicillin 875 mg tablet 875 mg PO Q12H #20 tabs 06/10/24 benzonatate 100 mg capsule 100 mg PO TIDP PRN Cough #30 caps 06/10/24 Allergies Allergy/AdvReac Type Severity Reaction Status Date / Time codeine (CODEINE) Allergy Unknown WEAK Verified 06/05/24 14:13 hydrochlorothiazide Allergy Unknown I-RASH Verified 06/05/24 14:13 (HYDROCHLOROTHIAZIDE) hydrocodone (HYDROCODONE) Allergy Unknown I-RASH Verified 06/05/24 14:13 metoclopramide Allergy Unknown SLURRED Verified 06/05/24 14:13 (METOCLOPRAMIDE) SPEECH, WEAK nifedipine (NIFEDIPINE) Allergy Unknown I-HIVES Verified 06/05/24 14:13 prazosin (PRAZOSIN) Allergy Unknown ITCHING/WEA Verified 06/05/24 14:13 K triamterene (TRIAMTERENE) Allergy Unknown I-RASH Verified 06/05/24 14:13 PFSH PFS Disclaimer: The information contained in this section may have been updated after the patient was seen, as this information can be updated by other users. 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 Family History Other Family history of cancer Family history of diabetes mellitus type II Family history of hypertension Family history of myocardial infarction Social History (Updated 06/05/24 @ 17:13 by Hansel Ruff MD) Smoking Status: Never smoker second hand exposure: Yes alcohol intake: never substance use type: denies use current occupational status: retired household members: none housing: apartment lives independently: Yes marital status: single education level: middle school service: No usp: No current occupational exposures/hazards: No caffeine: Yes do you feel safe at home: Yes victim of physical abuse: No victim of emotional abuse: No victim of sexual abuse: No would you like helpful sources: No ROS Obtained: Yes All systems reviewed & no additional complaints except as documented Constitutional Constitutional: Denies chills, Reports fever(s) and Reports poor appetite Eyes Eyes: Denies eye discharge ENT Ears, Nose, Mouth, and Throat: Denies ear discharge, Reports otalgia, Denies hearing loss, Denies sinus pain and Reports sore throat Cardiovascular Cardiovascular: Denies chest pain and Denies dyspnea Respiratory Respiratory: Denies chest congestion, Reports cough and Denies dyspnea Gastrointestinal Gastrointestingal: Denies abdominal pain, diarrhea, nausea or vomiting Musculoskeletal Musculoskeletal: Denies arthralgias Integumentary/Breasts Skin/Breast: Denies rash Physical Exam General General appearance: alert and in no apparent distress Head Head exam: atraumatic, normocephalic and normal inspection Eye Eye exam: Present normal appearance; Absent PERRL or EOMI ENT ENT exam: Present mucous membranes moist and normal external ear exam Expanded ENT Exam TM/Canal exam: Bilateral TM: erythema, bulging and effusion Nose exam: Absent sinus tenderness Nasal speculum exam: Bilateral: normal Mouth exam: Present normal external inspection and other; Absent drooling Teeth exam: Present normal inspection Throat exam: Present tonsillar erythema and tonsillomegaly Neck Neck exam: Present normal inspection, full ROM and trachea midline; Absent tenderness, meningismus or lymphadenopathy Chest Chest inspection: Present normal inspection and symmetric chest wall rise; Absent tenderness Respiratory Respiratory exam: Present normal lung sounds bilaterally; Absent respiratory distress, wheezes or stridor Cardiovascular Cardiovascular exam: Present regular rate, normal rhythm and normal heart sounds; Absent tachycardia or irregular rhythm Abdominal Exam Abdominal exam: Present soft and normal bowel sounds; Absent distention, tenderness, guarding, rebound or rigidity Extremities Exam Extremities exam: Present normal inspection and normal capillary refill; Absent tenderness, joint swelling or calf tenderness Back Exam Back exam: Present normal inspection and full ROM; Absent tenderness, CVA tenderness (R) or CVA tenderness (L) Neurological Exam Neurological exam: Present alert, oriented X3, CN II-XII intact, normal gait and reflexes normal; Absent motor sensory deficit Psychiatric Psychiatric exam: Present normal affect and normal mood Skin Skin exam: Present warm, dry, intact and normal color Lymphatic Lymphatic Findings: no adenopathy Medical Decision Making Medical Records Medical records reviewed: No I reviewed the patient's medical records. Screening: Per USPSTF and CDC recommendations, given the prevalence of disease in our region, it is our hospital?s policy to screen for HIV and viral Hepatitis for all patients aged 18 and over and those with ongoing risk factors. Chet Inquiry Pt receiving controlled substance: No
[2024-06-10 13:44] VITALS: BP 150/77; PULSE 72; RESP 20; TEMP 36.4; O2SAT 96; BMI 24.4
[2024-06-10 14:16] VITALS: BP 150/77; PULSE 72; RESP 20; TEMP 36.4
== END 2024-06-10 14:17 | disposition home or self-care (01) ==
PROVIDERS: Emergency Provider Nurse Practitioner Family; PCP Internal Medicine
DX: H66.002 Acute suppurative otitis media without spontaneous rupture of ear drum, left ear (principal)
CPT/HCPCS: 99213; G0381

== ENCOUNTER 2024-06-16 14:36 | Emergency (ER) | payer MEDICARE, OTHER, SELFPAY ==
--- NOTE | 2024-06-16 16:03 | ED_ITS ---
Discharge Plan Disposition Patient Disposition: Home, Self-Care Condition: Good Prescriptions Prescriptions: New prednisone 10 mg tablet 10 mg PO DIRECTED 9 Days Qty: 14 0RF Rx Instructions: Take 4 tablets daily for 2 days, then take 2 tablets daily for 2 days, then take 1 tablet daily for 2 days, then stop. fluconazole 150 mg tablet 150 mg PO ONCE Qty: 1 3RF benzonatate 100 mg capsule 100 mg PO TIDP PRN (Reason: Cough) Qty: 30 0RF Probiotic 15 billion cell capsule, sprinkle 1 cap PO DAILY 30 Days Qty: 30 0RF Rx Instructions: do not crush/chew/cut; swallow whole OR may open and sprinkle in cold drink/food No Action metoprolol succinate 50 mg tablet extended release 24 hr See Rx Instructions .ROUTE .COMPLEX Qty: 90 3RF Dose Instruction: TAKE ONE TABLET BY MOUTH ONCE A DAY FOR HIGH BLOOD PRESSURE Rx Instructions: TAKE ONE TABLET BY MOUTH ONCE A DAY FOR HIGH BLOOD PRESSURE amlodipine 5 mg tablet 5 mg PO DAILY Qty: 30 5RF isosorbide mononitrate 30 mg tablet extended release 24 hr 30 mg PO DAILY Qty: 90 1RF metformin 500 mg tablet 500 mg PO BID Qty: 180 1RF atorvastatin 40 mg tablet 40 mg PO DAILY Qty: 90 1RF gabapentin 100 mg capsule 200 mg PO HS Qty: 60 2RF diazepam 2 mg tablet 2 mg PO TID Qty: 90 2RF fluticasone propionate 50 mcg/actuation spray,suspension 2 spray intranasal DAILY Qty: 16 5RF omeprazole 20 mg capsule,delayed release(DR/EC) 20 mg PO DAILY Qty: 90 1RF venlafaxine 37.5 mg tablet 37.5 mg PO BID Qty: 180 1RF famotidine 20 mg tablet See Rx Instructions .ROUTE .COMPLEX Qty: 90 3RF Dose Instruction: TAKE ONE TABLET BY MOUTH ONCE A DAY FOR GERD Rx Instructions: TAKE ONE TABLET BY MOUTH ONCE A DAY FOR GERD clopidogrel 75 mg tablet See Rx Instructions .ROUTE .COMPLEX Qty: 90 1RF Dose Instruction: TAKE ONE TABLET BY MOUTH DAY Rx Instructions: TAKE ONE TABLET BY MOUTH DAY quetiapine [Seroquel] 50 mg tablet 50 mg PO HS Qty: 90 1RF alendronate 70 mg tablet See Rx Instructions .ROUTE .COMPLEX Qty: 12 1RF Dose Instruction: TAKE ONE TABLET BY MOUTH ONCE A WEEK Rx Instructions: TAKE ONE TABLET BY MOUTH ONCE A WEEK amoxicillin 875 mg tablet 875 mg PO Q12H Qty: 20 0RF aspirin 81 mg tablet,chewable 81 mg PO DAILY Referrals Follow up/Referrals: Hansel Ruff MD [Primary Care Provider] - See instructions Activity Restrictions/Add. Instructions Additional Instructions/Restrictions: Drink plenty of fluids. Take tylenol or ibuprofen for pain or fever. Stop the amoxicillin that you are on now and start the doxycycline. Follow up with your regular doctor. GO TO THE ER FOR ANY WORSENING SYMPTOMS Clinical Impressions Clinical Impression: Bronchitis, Acute bronchitis Instructions Patient Instructions: DI for Acute Bronchitis, Prednisone, Doxycycline Print Language Print Language: Omani Discharge ED Provider: Trevor Mccray [facility] General Stated complaint: diarrhea, congestion, cough Time Seen by Provider: 06/16/24 16:02 History of Present Illness Provider Complaint: She is here stating that her cough has continued to get worse. She has almost completed the medications that were prescribed here and by her pcp. She denies any fever/chills, but she has had malaise. She denies any chest pain. Related Data Home Medications ?Medication ?Instructions ?Recorded ?Confirmed aspirin 81 mg chewable tablet 81 mg PO DAILY 07/21/23 06/16/24 Previous Rx's ?Medication ?Instructions ?Recorded metoprolol succinate 50 mg See Rx Instructions .Route 10/11/23 tablet,extended release 24 hr .COMPLEX #90 tabs amlodipine 5 mg tablet 5 mg PO DAILY #30 tabs 02/11/24 atorvastatin 40 mg tablet 40 mg PO DAILY #90 tabs 04/11/24 gabapentin 100 mg capsule 200 mg (2 x 100 mg) PO HS #60 caps 04/11/24 isosorbide mononitrate 30 mg 30 mg PO DAILY #90 tabs 04/11/24 tablet,extended release 24 hr metformin 500 mg tablet 500 mg PO BID #180 tabs 04/11/24 diazepam 2 mg tablet 2 mg PO TID #90 tabs 05/15/24 fluticasone propionate 50 2 spray intranasal DAILY #16 grams 05/15/24 mcg/actuation nasal spray,suspension omeprazole 20 mg capsule,delayed 20 mg PO DAILY #90 caps 05/15/24 release venlafaxine 37.5 mg tablet 37.5 mg PO BID mood #180 tabs 05/15/24 amoxicillin 875 mg tablet 875 mg PO Q12H #20 tabs 06/10/24 alendronate 70 mg tablet See Rx Instructions .Route 06/12/24 .COMPLEX #12 tabs clopidogrel 75 mg tablet See Rx Instructions .Route 06/12/24 .COMPLEX #90 tabs famotidine 20 mg tablet See Rx Instructions .Route 06/12/24 .COMPLEX #90 tabs quetiapine 50 mg tablet (Seroquel) 50 mg PO HS #90 tabs 06/12/24 benzonatate 100 mg capsule 100 mg PO TIDP PRN Cough #30 caps 06/16/24 fluconazole 150 mg tablet 150 mg PO ONCE 1 dose #1 tab 06/16/24 lactobacillus combo no.11 15 1 cap PO DAILY 30 days #30 caps 06/16/24 billion cell sprinkle capsule (Probiotic) prednisone 10 mg tablet 10 mg PO DIRECTED 9 days #14 06/16/24 tabs Allergies Allergy/AdvReac Type Severity Reaction Status Date / Time codeine (CODEINE) Allergy Unknown WEAK Verified 06/14/24 15:50 hydrochlorothiazide Allergy Unknown I-RASH Verified 06/14/24 15:50 (HYDROCHLOROTHIAZIDE) hydrocodone (HYDROCODONE) Allergy Unknown I-RASH Verified 06/14/24 15:50 metoclopramide Allergy Unknown SLURRED Verified 06/14/24 15:50 (METOCLOPRAMIDE) SPEECH, WEAK nifedipine (NIFEDIPINE) Allergy Unknown I-HIVES Verified 06/14/24 15:50 prazosin (PRAZOSIN) Allergy Unknown ITCHING/WEA Verified 06/14/24 15:50 K triamterene (TRIAMTERENE) Allergy Unknown I-RASH Verified 06/14/24 15:50 PFSH PFS Disclaimer: The information contained in this section may have been updated after the patient was seen, as this information can be updated by other users. 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 Family History Other Family history of cancer Family history of diabetes mellitus type II Family history of hypertension Family history of myocardial infarction Social History Smoking Status: Never smoker second hand exposure: Yes alcohol intake: never substance use type: denies use current occupational status: retired Travel in the last 8 weeks: None household members: none housing: apartment lives independently: Yes marital status: single education level: middle school service: No retirement: No current occupational exposures/hazards: No caffeine: Yes do you feel safe at home: Yes victim of physical abuse: No victim of emotional abuse: No victim of sexual abuse: No would you like helpful sources: No ROS Obtained: Yes All systems reviewed & no additional complaints except as documented Constitutional Constitutional: Reports poor appetite Eyes Eyes: Reports system reviewed and no additional complaints, except as documented ENT Ears, Nose, Mouth, and Throat: Reports as per HPI Cardiovascular Cardiovascular: Reports system reviewed and no additional complaints, except as documented and Denies chest pain Respiratory Respiratory: Denies shortness of breath, Reports chest congestion, Reports cough, Denies stridor and Denies wheezing Gastrointestinal Gastrointestingal: Reports system reviewed and no additional complaints, except as documented; Denies abdominal pain, diarrhea or vomiting Musculoskeletal Musculoskeletal: Reports system reviewed and no additional complaints, except as documented and Denies arthralgias Integumentary/Breasts Skin/Breast: Reports system reviewed and no additional complaints, except as documented and Denies rash Neurologic Neurologic: Denies paresthesias Allergic/Immunologic Allergic/Immunologic: Denies wheezing Physical Exam General General appearance: alert and in no apparent distress Eye Eye exam: Present normal appearance, PERRL and EOMI ENT ENT exam: Present mucous membranes moist and normal external ear exam Expanded ENT Exam External ear exam: Present normal external inspection TM/Canal exam: Bilateral TM: erythema and bulging Nose exam: Absent sinus tenderness Nasal speculum exam: Bilateral: normal Mouth exam: Present normal external inspection; Absent drooling Teeth exam: Present normal inspection Throat exam: Present tonsillar erythema and tonsillomegaly Neck Neck exam: Present normal inspection, full ROM and trachea midline; Absent tenderness, lymphadenopathy or thyromegaly Chest Chest inspection: Present normal inspection and symmetric chest wall rise; Absent tenderness or rash Respiratory Respiratory exam: Present normal lung sounds bilaterally; Absent respiratory distress, wheezes, stridor or accessory muscle use Cardiovascular Cardiovascular exam: Present regular rate, normal rhythm and normal heart sounds Abdominal Exam Abdominal exam: Present soft; Absent distention, tenderness, guarding, rebound or rigidity Extremities Exam Extremities exam: Present normal inspection, full ROM and normal capillary refill; Absent tenderness or calf tenderness Back Exam Back exam: Present normal inspection and full ROM; Absent tenderness Neurological Exam Neurological exam: Present alert and oriented X3 Psychiatric Psychiatric exam: Present normal affect and normal mood Skin Skin exam: Present warm, dry, intact and normal color Lymphatic Lymphatic Findings: no adenopathy Medical Decision Making Medical Records Medical records reviewed: No I reviewed the patient's medical records. Screening: Per USPSTF and CDC recommendations, given the prevalence of disease in our region, it is our hospital?s policy to screen for HIV and viral Hepatitis for all patients aged 18 and over and those with ongoing risk factors. Chet Inquiry Pt receiving controlled substance: No Lab Data Lab results reviewed: Yes I reviewed the patient's lab results. Radiology Data #1: Image(s): Chest Image Reviewed: Yes I reviewed the patient's radiology image and Yes I have reviewed radiologist's interpretation Preliminary Findings: No Infiltrates Seen Accession No. : [id number] Patient Name / ID : WALI MYERS / [id number] Exam Date : 06/16/2024 16:53:35 ( Final ) Study Comment : Sex / Age : F / 73Y Creator : ALMA TSANG MD Dictator : Diamond Driller Helper : Vehicle And Equipment Cleaner : ALMA TASNG MD Approver2 : Report Date : 06/16/2024 17:40:53 My Comment : PROCEDURE INFORMATION: Exam: XR Chest Exam date and time: 06/16/2024 4:53 PM Age: 73 years old Clinical indication: Cough; Additional info: Cough, congestion TECHNIQUE: Imaging protocol: Radiologic exam of the chest. Views: 2 views. COMPARISON: CR XR CHEST PORTABLE 12/02/2023 1:55 PM FINDINGS: Tubes, catheters and devices: A left subclavian pacemaker device is present, and its leads are in appropriate position. Lungs: The lungs appear clear. No focal areas of consolidation.Flattening of the hemidiaphragms and increase in the AP diameter of the chest suggest COPD. Pleural spaces: No pleural effusions. Negative for pneumothorax. Heart/Mediastinum: Cardiac silhouette and pulmonary vasculature are within range of normal. Sternal suture wires are in place suggesting prior median sternotomy and postoperative changes are present involving the mediastinum. A cardiac prosthetic valve is again noted. Moderate to marked coronary arterial calcifications are present.The visualized abdominal aorta demonstrates moderate atherosclerotic calcification. Bones/joints: There is no evidence of acute fracture. There is increase in thoracic kyphosis.The thoracic spine demonstrates mild degenerative changes at multiple levels. IMPRESSION: 1. Flattening of the hemidiaphragms and increase in the AP diameter of the chest suggest COPD. 2. No acute cardiopulmonary pathology.
[2024-06-16 16:09] VITALS: BP 141/74; PULSE 71; RESP 20; TEMP 36.6; O2SAT 98; BMI 23.6
--- NOTE | 2024-06-16 16:29 | XR_ITS ---
PROCEDURE INFORMATION: Exam: XR Chest Exam date and time: 06/16/2024 4:53 PM Age: 73 years old Clinical indication: Cough; Additional info: Cough, congestion TECHNIQUE: Imaging protocol: Radiologic exam of the chest. Views: 2 views. COMPARISON: CR XR CHEST PORTABLE 12/02/2023 1:55 PM FINDINGS: Tubes, catheters and devices: A left subclavian pacemaker device is present, and its leads are in appropriate position. Lungs: The lungs appear clear. No focal areas of consolidation.Flattening of the hemidiaphragms and increase in the AP diameter of the chest suggest COPD. Pleural spaces: No pleural effusions. Negative for pneumothorax. Heart/Mediastinum: Cardiac silhouette and pulmonary vasculature are within range of normal. Sternal suture wires are in place suggesting prior median sternotomy and postoperative changes are present involving the mediastinum. A cardiac prosthetic valve is again noted. Moderate to marked coronary arterial calcifications are present.The visualized abdominal aorta demonstrates moderate atherosclerotic calcification. Bones/joints: There is no evidence of acute fracture. There is increase in thoracic kyphosis.The thoracic spine demonstrates mild degenerative changes at multiple levels. IMPRESSION: 1. Flattening of the hemidiaphragms and increase in the AP diameter of the chest suggest COPD. 2. No acute cardiopulmonary pathology.
[2024-06-16 17:46] VITALS: BP 141/74; PULSE 71; RESP 20; TEMP 36.6
== END 2024-06-16 17:47 | disposition home or self-care (01) ==
PROVIDERS: Emergency Provider Nurse Practitioner Family; PCP Internal Medicine
DX: J20.9 Acute bronchitis, unspecified (principal); R19.7 Diarrhea, unspecified; R09.81 Nasal congestion; R05.9 Cough, unspecified; R63.8 Other symptoms and signs concerning food and fluid intake
CPT/HCPCS: 71046; 99212; G0381

== ENCOUNTER 2024-06-30 14:27 | Emergency (ER) | payer MEDICARE, OTHER, SELFPAY ==
[2024-06-30 14:30] VITALS: BP 135/64; PULSE 67; RESP 16; TEMP 36.6; O2SAT 99; BMI 24.2
[2024-06-30] MEDS: BELLADONNA ALKALOIDS 60 ML ML PO (14:40)
[2024-06-30] MEDS: ALUMINUM/MAGNESIUM/SIMETHICONE 30ML UDC 30 ML PO (14:40)
--- NOTE | 2024-06-30 14:46 | ECG_ITS ---
APPROVED REPORT Exam: Resting ECG HR:68 bpm ECG Measurements Heart Rate 68 AXES VT 182 P 78 QRSd 145 QRS 261 QT 419 T 62 QTc 437 Conclusion ELECTRONIC VENTRICULAR PACEMAKER Sgarbossa negative Electronically signed by : LUCIE LAKHANI, 06/30/2024 15:28:29
--- NOTE | 2024-06-30 14:52 | HMH.EDGENADL ---
Discharge Plan Disposition Patient Disposition: Home, Self-Care Prescriptions Prescriptions: No Action metoprolol succinate 50 mg tablet extended release 24 hr See Rx Instructions .ROUTE .COMPLEX Qty: 90 3RF Dose Instruction: TAKE ONE TABLET BY MOUTH ONCE A DAY FOR HIGH BLOOD PRESSURE Rx Instructions: TAKE ONE TABLET BY MOUTH ONCE A DAY FOR HIGH BLOOD PRESSURE amlodipine 5 mg tablet 5 mg PO DAILY Qty: 30 5RF isosorbide mononitrate 30 mg tablet extended release 24 hr 30 mg PO DAILY Qty: 90 1RF metformin 500 mg tablet 500 mg PO BID Qty: 180 1RF atorvastatin 40 mg tablet 40 mg PO DAILY Qty: 90 1RF gabapentin 100 mg capsule 200 mg PO HS Qty: 60 2RF diazepam 2 mg tablet 2 mg PO TID Qty: 90 2RF fluticasone propionate 50 mcg/actuation spray,suspension 2 spray intranasal DAILY Qty: 16 5RF omeprazole 20 mg capsule,delayed release(DR/EC) 20 mg PO DAILY Qty: 90 1RF venlafaxine 37.5 mg tablet 37.5 mg PO BID Qty: 180 1RF famotidine 20 mg tablet See Rx Instructions .ROUTE .COMPLEX Qty: 90 3RF Dose Instruction: TAKE ONE TABLET BY MOUTH ONCE A DAY FOR GERD Rx Instructions: TAKE ONE TABLET BY MOUTH ONCE A DAY FOR GERD clopidogrel 75 mg tablet See Rx Instructions .ROUTE .COMPLEX Qty: 90 1RF Dose Instruction: TAKE ONE TABLET BY MOUTH DAY Rx Instructions: TAKE ONE TABLET BY MOUTH DAY quetiapine [Seroquel] 50 mg tablet 50 mg PO HS Qty: 90 1RF alendronate 70 mg tablet See Rx Instructions .ROUTE .COMPLEX Qty: 12 1RF Dose Instruction: TAKE ONE TABLET BY MOUTH ONCE A WEEK Rx Instructions: TAKE ONE TABLET BY MOUTH ONCE A WEEK prednisone 10 mg tablet 10 mg PO DIRECTED 9 Days Qty: 14 0RF Rx Instructions: Take 4 tablets daily for 2 days, then take 2 tablets daily for 2 days, then take 1 tablet daily for 2 days, then stop. fluconazole 150 mg tablet 150 mg PO ONCE Qty: 1 3RF benzonatate 100 mg capsule 100 mg PO TIDP PRN (Reason: Cough) Qty: 30 0RF Probiotic 15 billion cell capsule, sprinkle 1 cap PO DAILY 30 Days Qty: 30 0RF Rx Instructions: do not crush/chew/cut; swallow whole OR may open and sprinkle in cold drink/food aspirin 81 mg tablet,chewable 81 mg PO DAILY Referrals Follow up/Referrals: Gibson Campbell II, MD [Staff Physician] - See instructions Provider,MD Aidan [Primary Care Provider] - See instructions Activity Restrictions/Add. Instructions Additional Instructions/Restrictions: Call your family doctor to establish care for this visit to the emergency department and schedule follow-up within 48 hours to ensure improvement. If you have any worsening of your condition or any other concerning signs or symptoms, return to the emergency department or your primary care doctor for further evaluation. Follow-up with Dr. Campbell, information here. You can call to schedule an appointment. Dr. Ruff's clinic number is [phone] Clinical Impressions Clinical Impression: Epigastric abdominal pain Instructions Patient Instructions: DI for Acute Abdominal Pain Print Language Print Language: Japanese Discharge ED Provider: Jean Carlos Hester Adult HPI <Lennox Conrad MD - Last Filed: 06/30/24 15:27> General Chief complaint: Abdominal Pain Stated complaint: Abd Pain Time Seen by Provider: 06/30/24 14:28 Mode of Arrival: Ambulatory Source of Information: Patient Limitations: No Limitations Description of Symptoms (Recalled from ER Triage Doc. by RN): hernia pressure History of Present Illness HPI narrative: Please note that above description of symptoms, in this electronic medical record under categorization of recalled from ER triage doctor by RN are reflective of an initial nursing assessment, however, is not reflective of my full history and physical exam that was personally taken and clarified. Consequentially, this preceding description of symptoms, which may include the patient's categorized chief complaint in the EMR, do not reflect my personal clinical impression, and the ultimate description of history of present illness and patient stated complaints should be deferred to this section of the note. Unless stated otherwise or congruent with this section of the note, additional signs, symptoms, or incongruence should be interpreted as inaccurate with my clinical impression. Related Data Home Medications ?Medication ?Instructions ?Recorded ?Confirmed aspirin 81 mg chewable tablet 81 mg PO DAILY 07/21/23 06/27/24 Previous Rx's ?Medication ?Instructions ?Recorded metoprolol succinate 50 mg See Rx Instructions .Route 10/11/23 tablet,extended release 24 hr .COMPLEX #90 tabs amlodipine 5 mg tablet 5 mg PO DAILY #30 tabs 02/11/24 atorvastatin 40 mg tablet 40 mg PO DAILY #90 tabs 04/11/24 gabapentin 100 mg capsule 200 mg (2 x 100 mg) PO HS #60 caps 04/11/24 isosorbide mononitrate 30 mg 30 mg PO DAILY #90 tabs 04/11/24 tablet,extended release 24 hr metformin 500 mg tablet 500 mg PO BID #180 tabs 04/11/24 diazepam 2 mg tablet 2 mg PO TID #90 tabs 05/15/24 fluticasone propionate 50 2 spray intranasal DAILY #16 grams 05/15/24 mcg/actuation nasal spray,suspension omeprazole 20 mg capsule,delayed 20 mg PO DAILY #90 caps 05/15/24 release venlafaxine 37.5 mg tablet 37.5 mg PO BID mood #180 tabs 05/15/24 alendronate 70 mg tablet See Rx Instructions .Route 06/12/24 .COMPLEX #12 tabs clopidogrel 75 mg tablet See Rx Instructions .Route 06/12/24 .COMPLEX #90 tabs famotidine 20 mg tablet See Rx Instructions .Route 06/12/24 .COMPLEX #90 tabs quetiapine 50 mg tablet (Seroquel) 50 mg PO HS #90 tabs 06/12/24 benzonatate 100 mg capsule 100 mg PO TIDP PRN Cough #30 caps 06/16/24 fluconazole 150 mg tablet 150 mg PO ONCE 1 dose #1 tab 06/16/24 lactobacillus combo no.11 15 1 cap PO DAILY 30 days #30 caps 06/16/24 billion cell sprinkle capsule (Probiotic) prednisone 10 mg tablet 10 mg PO DIRECTED 9 days #14 06/16/24 tabs Allergies Allergy/AdvReac Type Severity Reaction Status Date / Time codeine (CODEINE) Allergy Unknown WEAK Verified 06/27/24 14:09 hydrochlorothiazide Allergy Unknown I-RASH Verified 06/27/24 14:09 (HYDROCHLOROTHIAZIDE) hydrocodone (HYDROCODONE) Allergy Unknown I-RASH Verified 06/27/24 14:09 metoclopramide Allergy Unknown SLURRED Verified 06/27/24 14:09 (METOCLOPRAMIDE) SPEECH, WEAK nifedipine (NIFEDIPINE) Allergy Unknown I-HIVES Verified 06/27/24 14:09 prazosin (PRAZOSIN) Allergy Unknown ITCHING/WEA Verified 06/27/24 14:09 K triamterene (TRIAMTERENE) Allergy Unknown I-RASH Verified 06/27/24 14:09 [facility] <Lennox Conrad MD - Last Filed: 06/30/24 15:27> [facility] Disclaimer: The information contained in this section may have been updated after the patient was seen, as this information can be updated by other users. 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 Family History Other Family history of cancer Family history of diabetes mellitus type II Family history of hypertension Family history of myocardial infarction Social History Smoking Status: Never smoker second hand exposure: Yes alcohol intake: never substance use type: denies use current occupational status: retired Travel in the last 8 weeks: None household members: none housing: apartment lives independently: Yes marital status: single education level: middle school service: No custodial: No current occupational exposures/hazards: No caffeine: Yes do you feel safe at home: Yes victim of physical abuse: No victim of emotional abuse: No victim of sexual abuse: No would you like helpful sources: No Have you lived/traveled outside [place] in past 30 days?: No Contact w/someone who lives/traveled outside [place] past 30 days?: No Exposure to someone with infectious disease in past 14 days?: No Do you have a fever (greater than 100.4 F or 38 C)?: No Have you tested positive for COVID-19: No Exposed to someone with COVID-19 in past 14 days?: No Do you have a sore throat?: No Do you have a cough?: No Do you have any weakness?: No Do you have any diarrhea?: No Are you experiencing any unusual bleeding?: No Do you have any muscle aches/pain?: No Do you have any abdominal pain?: Yes Are you experiencing loss of taste or smell?: No Other Medical History Have you received the Flu Vaccine for this season: No Have you received the Pneumonia Vaccine: Yes <Lennox Conrad MD - Last Filed: 06/30/24 15:27> ROS Obtained: Yes All systems reviewed & no additional complaints except as documented Physical Exam <Lennox Conrad MD - Last Filed: 06/30/24 15:27> General General appearance: alert Head Head exam: atraumatic and normocephalic Eye Eye exam: Present normal appearance, PERRL and EOMI Neck Neck exam: Present normal inspection, full ROM and trachea midline Respiratory Respiratory exam: Absent respiratory distress, wheezes, stridor, accessory muscle use or prolonged expiratory phase Cardiovascular Cardiovascular exam: Present other (Pulses equal symmetric in upper and lower extremities) Abdominal Exam Abdominal exam: Present soft; Absent distention, tenderness or pulsatile mass Extremities Exam Extremities exam: Absent edema Neurological Exam Neurological exam: Present alert, oriented X3 and CN II-XII intact; Absent motor sensory deficit Skin Skin exam: Present warm and dry; Absent diaphoresis or erythema Medical Decision Making <Lennox Conrad MD - Last Filed: 06/30/24 15:27> Medical Records Medical records reviewed: Yes I reviewed the patient's medical records. Screening: Per USPSTF and CDC recommendations, given the prevalence of disease in our region, it is our hospital?s policy to screen for HIV and viral Hepatitis for all patients aged 18 and over and those with ongoing risk factors. Chet Inquiry Pt receiving controlled substance: No Chet was queried for this patient: No Vital Signs: 06/30/24 14:30 Temperature 97.9 F Temperature Source Oral Pulse Rate [Right Radial] 67 Respiratory Rate 16 Blood Pressure [Right Arm] 135/64 Blood Pressure Mean [Right Arm] 87 02 Sat by Pulse Oximetry 99 Oxygen Delivery Method Room Air Lab Data Lab Results 06/30/24 14:35: Urine Color Yellow, Urine Appearance Clear, Urine pH 6.0, Ur Specific [place] <= 1.005, Urine Protein Negative, Urine Glucose (UA) Negative, Urine Ketones Negative, Urine Blood Negative, Urine Nitrate Negative, Urine Bilirubin Negative, Urine Urobilinogen 0.2, Ur Leukocyte Esterase Negative, Urine RBC None, Urine WBC None, Ur Squamous Epith Cells Occasional, Urine Bacteria Trace Orders (Tests/Meds): ED MEDICATIONS Discontinued Medications Generic Name Dose Route Start Last Admin Trade Name Yoq PRN Reason Stop Dose Admin Al Hydrox/Mg Hydrox/Simethicone 30 ml 06/30/24 14:36 06/30/24 14:40 Aluminum/Magnesium/Simethicone 30ml Udc PO 06/30/24 14:37 30 ml ONCE ONE Administration Belladonna Alkaloids 60 ml 06/30/24 14:36 06/30/24 14:40 Belladonna Alkaloids 60 Ml Ml PO 06/30/24 14:37 60 ml ONCE ONE Administration ORDERS Category Date Time Status UA [Urinalysis and Microscopic] Stat Lab 06/30/24 14:35 Completed Medical Decision Narrative: 73-year-old female history of CAD, CABG, ventricular pacemaker placement diabetes, chronic abdominal pain secondary to hiatal hernia presenting with epigastric abdominal pain. Patient states that she has had abdominal pain for about 24 hours at this point. Waiting for GI follow-up. States that she is following with her PCP in order to try to get into gastroenterology, has not received a call yet to set up follow-up. States that that is all she is waiting on now. Has not been vomiting, but feels nauseous. No diarrhea, no fevers no chills no weight loss, no other concerning symptoms. Feels exactly like the abdominal pain she is used to, no changes from baseline. History obtained the patient. On arrival, very well-appearing, sweet. Abdomen is soft, nontender, nondistended. Cardiopulmonary exam within normal limits. Differential includes GERD, gastritis, less likely be ACS, OR, pneumothorax, pneumonia, among others. Patient given GI cocktail and Maalox. EKG was independently interpreted. V paced rhythm at 68 bpm with AL 182, QRS 145, QTc 437. Sgarbossa negative. Leftward axis. Urinalysis and disposition and reevaluation pending at time of handoff to oncoming physician. [employer] disclaimer Much of this encounter note is an electronic mold filler and drainer spoken language to printed text. Electronic mold filler and drainer of the spoken language may permit errors. Although I have reviewed the note, some errors may still exist. <Jean Carlos Hester MD - Last Filed: 06/30/24 16:21> Vital Signs: 06/30/24 14:30 Temperature 97.9 F Temperature Source Oral Pulse Rate [Right Radial] 67 Respiratory Rate 16 Blood Pressure [Right Arm] 135/64 Blood Pressure Mean [Right Arm] 87 02 Sat by Pulse Oximetry 99 Oxygen Delivery Method Room Air Lab Data Lab Results 06/30/24 14:35: Urine Color Yellow, Urine Appearance Clear, Urine pH 6.0, Ur Specific [place] <= 1.005, Urine Protein Negative, Urine Glucose (UA) Negative, Urine Ketones Negative, Urine Blood Negative, Urine Nitrate Negative, Urine Bilirubin Negative, Urine Urobilinogen 0.2, Ur Leukocyte Esterase Negative, Urine RBC None, Urine WBC None, Ur Squamous Epith Cells Occasional, Urine Bacteria Trace Orders (Tests/Meds): ED MEDICATIONS Discontinued Medications Generic Name Dose Route Start Last Admin Trade Name Freq PRN Reason Stop Dose Admin Al Hydrox/Mg Hydrox/Simethicone 30 ml 06/30/24 14:36 06/30/24 14:40 Aluminum/Magnesium/Simethicone 30ml Udc PO 06/30/24 14:37 30 ml ONCE ONE Administration Belladonna Alkaloids 60 ml 06/30/24 14:36 06/30/24 14:40 Belladonna Alkaloids 60 Ml Ml PO 06/30/24 14:37 60 ml ONCE ONE Administration ORDERS Category Date Time Status UA [Urinalysis and Microscopic] Stat Lab 06/30/24 14:35 Completed Medical Decision Narrative: 73-year-old female history of CAD, CABG, ventricular pacemaker placement diabetes, chronic abdominal pain secondary to hiatal hernia presenting with epigastric abdominal pain. Patient states that she has had abdominal pain for about 24 hours at this point. Waiting for GI follow-up. States that she is following with her PCP in order to try to get into gastroenterology, has not received a call yet to set up follow-up. States that that is all she is waiting on now. Has not been vomiting, but feels nauseous. No diarrhea, no fevers no chills no weight loss, no other concerning symptoms. Feels exactly like the abdominal pain she is used to, no changes from baseline. History obtained the patient. On arrival, very well-appearing, sweet. Abdomen is soft, nontender, nondistended. Cardiopulmonary exam within normal limits. Differential includes GERD, gastritis, less likely be ACS, OR, pneumothorax, pneumonia, among others. Patient given GI cocktail and Maalox. EKG was independently interpreted. V paced rhythm at 68 bpm with AL 182, QRS 145, QTc 437. Sgarbossa negative. Leftward axis. Urinalysis and disposition and reevaluation pending at time of handoff to oncoming physician. Marcos Hester took over for patient after handoff from Dr. Conrad. Upon reassessment patient's pain is completely resolved and she said that she wanted to come here for Dr. Ruff's number. I discussed with patient that we will get his clinic number but the clinic was closed at this time. Discussed that she will have to call their clinic on Wednesday for follow-up. [employer] disclaimer Much of this encounter note is an electronic mold filler and drainer spoken language to printed text. Electronic mold filler and drainer of the spoken language may permit errors. Although I have reviewed the note, some errors may still exist. Critical Care <Lennox Conrad MD - Last Filed: 06/30/24 15:27> Critical Care Time Critical Care Time: No
[2024-06-30 15:00] LABS: Microscopic, Urine URINE MICROSCOPIC (MICROSCOPIC)
[2024-06-30 15:05] LABS: Appearance,Urine CLEAR (Clear); Bilirubin,Urine Negative (Negative); Blood, Urine Negative (Negative); Color,Urine YELLOW (Yellow); Glucose,Urine (UA) Negative (Negative); Ketones,Urine Negative (Negative); Leukocyte Esterase,Urine Negative (Negative); Nitrate,Urine Negative (Negative); Protein,Urine Negative (Negative); Specific Gravity, Urine <= 1.005 (1.005-1.030); Urobilinogen,Urine 0.2 EU/dl (0.2)
[2024-06-30 15:12] LABS: Bacteria,Urine Trace /lpf; Squamous Epithelial Cell,Urine Occasional #/hpf (0-5)
--- NOTE | 2024-06-30 16:12 | PC.NURSE ---
Dr. Hester at for pt eval
[2024-06-30 16:24] VITALS: BP 130/54; PULSE 75; RESP 18; TEMP 36.6; O2SAT 98
== END 2024-06-30 16:25 | disposition home or self-care (01) ==
PROVIDERS: Emergency Medicine; Emergency Provider Student in an Organized Health Care Education/Training Program
DX: R10.13 Epigastric pain (principal)
CPT/HCPCS: 81001; 93005; 99283

== ENCOUNTER 2024-07-03 11:55 | Emergency (ER) | payer MEDICARE, OTHER, SELFPAY ==
[2024-07-03 11:55] VITALS: BP 137/60; PULSE 68; RESP 18; TEMP 36.7; O2SAT 97; BMI 24.4
[2024-07-03 12:06] VITALS: BP 137/60; PULSE 68; RESP 18; TEMP 36.4; O2SAT 99
--- NOTE | 2024-07-03 12:14 | ED_ITS ---
Discharge Plan Disposition Patient Disposition: Home, Self-Care Condition: Good Prescriptions Prescriptions: No Action metoprolol succinate 50 mg tablet extended release 24 hr See Rx Instructions .ROUTE .COMPLEX Qty: 90 3RF Dose Instruction: TAKE ONE TABLET BY MOUTH ONCE A DAY FOR HIGH BLOOD PRESSURE Rx Instructions: TAKE ONE TABLET BY MOUTH ONCE A DAY FOR HIGH BLOOD PRESSURE amlodipine 5 mg tablet 5 mg PO DAILY Qty: 30 5RF isosorbide mononitrate 30 mg tablet extended release 24 hr 30 mg PO DAILY Qty: 90 1RF metformin 500 mg tablet 500 mg PO BID Qty: 180 1RF atorvastatin 40 mg tablet 40 mg PO DAILY Qty: 90 1RF gabapentin 100 mg capsule 200 mg PO HS Qty: 60 2RF diazepam 2 mg tablet 2 mg PO TID Qty: 90 2RF fluticasone propionate 50 mcg/actuation spray,suspension 2 spray intranasal DAILY Qty: 16 5RF omeprazole 20 mg capsule,delayed release(DR/EC) 20 mg PO DAILY Qty: 90 1RF venlafaxine 37.5 mg tablet 37.5 mg PO BID Qty: 180 1RF famotidine 20 mg tablet See Rx Instructions .ROUTE .COMPLEX Qty: 90 3RF Dose Instruction: TAKE ONE TABLET BY MOUTH ONCE A DAY FOR GERD Rx Instructions: TAKE ONE TABLET BY MOUTH ONCE A DAY FOR GERD clopidogrel 75 mg tablet See Rx Instructions .ROUTE .COMPLEX Qty: 90 1RF Dose Instruction: TAKE ONE TABLET BY MOUTH DAY Rx Instructions: TAKE ONE TABLET BY MOUTH DAY quetiapine [Seroquel] 50 mg tablet 50 mg PO HS Qty: 90 1RF alendronate 70 mg tablet See Rx Instructions .ROUTE .COMPLEX Qty: 12 1RF Dose Instruction: TAKE ONE TABLET BY MOUTH ONCE A WEEK Rx Instructions: TAKE ONE TABLET BY MOUTH ONCE A WEEK prednisone 10 mg tablet 10 mg PO DIRECTED 9 Days Qty: 14 0RF Rx Instructions: Take 4 tablets daily for 2 days, then take 2 tablets daily for 2 days, then take 1 tablet daily for 2 days, then stop. fluconazole 150 mg tablet 150 mg PO ONCE Qty: 1 3RF benzonatate 100 mg capsule 100 mg PO TIDP PRN (Reason: Cough) Qty: 30 0RF Probiotic 15 billion cell capsule, sprinkle 1 cap PO DAILY 30 Days Qty: 30 0RF Rx Instructions: do not crush/chew/cut; swallow whole OR may open and sprinkle in cold drink/food aspirin 81 mg tablet,chewable 81 mg PO DAILY Referrals Follow up/Referrals: Provider,Referral, [Referring] - See instructions Activity Restrictions/Add. Instructions Additional Instructions/Restrictions: Continue to take your Zofran for your nausea symptoms. Try not to eat large amounts at 1 time. If you do have no improvement or worsening signs or symptoms follow-up with your PCP. Return to the ER as needed. Clinical Impressions Clinical Impression: Nausea & vomiting Qualifiers: Vomiting type: unspecified Qualified Code(s): R11.2 - Nausea with vomiting, unspecified Instructions Patient Instructions: DI for Acute Abdominal Pain Print Language Print Language: [place] Discharge ED Provider: Felicita Klein General Adult HPI <ANJUM Pascual - Last Filed: 07/03/24 14:22> General Chief complaint: Abdominal Pain Stated complaint: difficulity swalling Time Seen by Provider: 07/03/24 12:01 History of Present Illness HPI narrative: Patient presents for evaluation of my hiatal hernia pain . Patient states that she has had some nausea 1 episode of vomiting and increased epigastric tenderness. This is a known entity for her and she does have home Zofran but did not take it today. She denies fever chills hemoptysis hematochezia melena hematemesis hematuria shortness of breath cardiac type chest pain Related Data Home Medications ?Medication ?Instructions ?Recorded ?Confirmed aspirin 81 mg chewable tablet 81 mg PO DAILY 07/21/23 06/27/24 Previous Rx's ?Medication ?Instructions ?Recorded metoprolol succinate 50 mg See Rx Instructions .Route 10/11/23 tablet,extended release 24 hr .COMPLEX #90 tabs amlodipine 5 mg tablet 5 mg PO DAILY #30 tabs 02/11/24 atorvastatin 40 mg tablet 40 mg PO DAILY #90 tabs 04/11/24 gabapentin 100 mg capsule 200 mg (2 x 100 mg) PO HS #60 caps 04/11/24 isosorbide mononitrate 30 mg 30 mg PO DAILY #90 tabs 04/11/24 tablet,extended release 24 hr metformin 500 mg tablet 500 mg PO BID #180 tabs 04/11/24 diazepam 2 mg tablet 2 mg PO TID #90 tabs 05/15/24 fluticasone propionate 50 2 spray intranasal DAILY #16 grams 05/15/24 mcg/actuation nasal spray,suspension omeprazole 20 mg capsule,delayed 20 mg PO DAILY #90 caps 05/15/24 release venlafaxine 37.5 mg tablet 37.5 mg PO BID mood #180 tabs 05/15/24 alendronate 70 mg tablet See Rx Instructions .Route 06/12/24 .COMPLEX #12 tabs clopidogrel 75 mg tablet See Rx Instructions .Route 06/12/24 .COMPLEX #90 tabs famotidine 20 mg tablet See Rx Instructions .Route 06/12/24 .COMPLEX #90 tabs quetiapine 50 mg tablet (Seroquel) 50 mg PO HS #90 tabs 06/12/24 benzonatate 100 mg capsule 100 mg PO TIDP PRN Cough #30 caps 06/16/24 fluconazole 150 mg tablet 150 mg PO ONCE 1 dose #1 tab 06/16/24 lactobacillus combo no.11 15 1 cap PO DAILY 30 days #30 caps 06/16/24 billion cell sprinkle capsule (Probiotic) prednisone 10 mg tablet 10 mg PO DIRECTED 9 days #14 06/16/24 tabs Allergies Allergy/AdvReac Type Severity Reaction Status Date / Time codeine (CODEINE) Allergy Unknown WEAK Verified 06/27/24 14:09 hydrochlorothiazide Allergy Unknown I-RASH Verified 06/27/24 14:09 (HYDROCHLOROTHIAZIDE) hydrocodone (HYDROCODONE) Allergy Unknown I-RASH Verified 06/27/24 14:09 metoclopramide Allergy Unknown SLURRED Verified 06/27/24 14:09 (METOCLOPRAMIDE) SPEECH, WEAK nifedipine (NIFEDIPINE) Allergy Unknown I-HIVES Verified 06/27/24 14:09 prazosin (PRAZOSIN) Allergy Unknown ITCHING/WEA Verified 06/27/24 14:09 K triamterene (TRIAMTERENE) Allergy Unknown I-RASH Verified 06/27/24 14:09 [facility] <ANJUM Pascual - Last Filed: 07/03/24 14:22> [facility] Disclaimer: The information contained in this section may have been updated after the patient was seen, as this information can be updated by other users. 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 Family History Other Family history of cancer Family history of diabetes mellitus type II Family history of hypertension Family history of myocardial infarction Social History Smoking Status: Never smoker second hand exposure: Yes alcohol intake: never substance use type: denies use current occupational status: retired Travel in the last 8 weeks: None household members: none housing: apartment lives independently: Yes marital status: single education level: middle school service: No chcf: No current occupational exposures/hazards: No caffeine: Yes do you feel safe at home: Yes victim of physical abuse: No victim of emotional abuse: No victim of sexual abuse: No would you like helpful sources: No Have you lived/traveled outside [place] in past 30 days?: No Contact w/someone who lives/traveled outside [place] past 30 days?: No Exposure to someone with infectious disease in past 14 days?: No Do you have a fever (greater than 100.4 F or 38 C)?: No Have you tested positive for COVID-19: No Exposed to someone with COVID-19 in past 14 days?: No Do you have a sore throat?: No Do you have a cough?: No Do you have any weakness?: No Do you have any diarrhea?: No Are you experiencing any unusual bleeding?: No Do you have any muscle aches/pain?: No Do you have any abdominal pain?: No Are you experiencing loss of taste or smell?: No Other Medical History Have you received the Flu Vaccine for this season: No Have you received the Pneumonia Vaccine: Yes <ANJUM Pascual - Last Filed: 07/03/24 14:22> ROS Obtained: Yes Systems reviewed as appropriate & no additional complaints except as documented Physical Exam <ANJUM Pascual - Last Filed: 07/03/24 14:22> General General appearance: alert and in no apparent distress Eye Eye exam: Present normal appearance, PERRL and EOMI Respiratory Respiratory exam: Present normal lung sounds bilaterally Cardiovascular Cardiovascular exam: Present regular rate Neurological Exam Neurological exam: Present alert and oriented X3 Medical Decision Making <ANJUM Pascual - Last Filed: 07/03/24 14:22> Medical Records Medical records reviewed: Yes I reviewed the patient's medical records. Screening: Per USPSTF and CDC recommendations, given the prevalence of disease in our region, it is our hospital?s policy to screen for HIV and viral Hepatitis for all patients aged 18 and over and those with ongoing risk factors. Chet Inquiry Pt receiving controlled substance: No Vital Signs: 07/03/24 11:55 07/03/24 12:06 07/03/24 13:59 Temperature 98.0 F 97.6 F 98.0 F Temperature Source Oral Axillary Oral Pulse Rate 68 82 Pulse Rate [Left Radial] 68 Respiratory Rate 18 18 18 Blood Pressure 137/60 134/74 Blood Pressure [Right Arm] 137/60 Blood Pressure Mean [Right Arm] 85 Blood Pressure Source Automatic Cuff Automatic Cuff Blood Pressure Source [Right Arm] Automatic Cuff Blood Pressure Position Sitting Sitting Blood Pressure Position [Right Arm] Sitting 02 Sat by Pulse Oximetry 97 99 Oxygen Delivery Method Room Air Room Air Room Air Orders (Tests/Meds): ED MEDICATIONS Discontinued Medications Generic Name Dose Route Start Last Admin Trade Name Freq PRN Reason Stop Dose Admin Belladonna Alkaloids 60 ml 07/03/24 12:21 07/03/24 12:25 Belladonna Alkaloids 60 Ml Ml PO 07/03/24 12:22 60 ml ONCE ONE Administration Ondansetron HCl 4 mg 07/03/24 12:21 07/03/24 12:26 Ondansetron 4mg Odt SL 07/03/24 12:22 4 mg ONCE ONE Administration Medical Decision Narrative: In summary patient is a 73-year-old female who presents to the emergency department for evaluation of nausea and epigastric abdominal pain. Patient is hemodynamically stable upon arrival, afebrile. Physical exam is remarkable for nonreproducible epigastric pain on palpation of the chest however abdominal palpation does reproduce it. Bowel sounds are normal active patient is normal sinus rhythm on the bedside monitor, there is no rebound no guarding no rigidity. Bowel sounds normal active.. Differential diagnosis includes gastroenteritis versus achalasia versus nausea vomiting etc. Initial workup was considered including labs and imaging but I had an interactive discussion with the patient and she has not tried antiemetics prior to presenting to the ER and via patient directed decision making she is agreeable to try that now before we investigate further. This is very typical of her presentation and there are no red flags to suggest any other etiology currently. Initial interventions include GI cocktail and Zofran. Upon reassessment patient reports improvement in her pain and is actually able to tolerate both liquid and solid food in the emergency department without nausea or vomiting. I had interactive discussion w ith the patient and via patient directed decision making and discharge she is comfortable going home with instructions to take her Zofran prior to meals and strict return precautions. <Felicita Klein MD - Last Filed: 07/03/24 14:36> Vital Signs: 07/03/24 11:55 07/03/24 12:06 07/03/24 13:59 Temperature 98.0 F 97.6 F 98.0 F Temperature Source Oral Axillary Oral Pulse Rate 68 82 Pulse Rate [Left Radial] 68 Respiratory Rate 18 18 18 Blood Pressure 137/60 134/74 Blood Pressure [Right Arm] 137/60 Blood Pressure Mean [Right Arm] 85 Blood Pressure Source Automatic Cuff Automatic Cuff Blood Pressure Source [Right Arm] Automatic Cuff Blood Pressure Position Sitting Sitting Blood Pressure Position [Right Arm] Sitting 02 Sat by Pulse Oximetry 97 99 Oxygen Delivery Method Room Air Room Air Room Air Orders (Tests/Meds): ED MEDICATIONS Discontinued Medications Generic Name Dose Route Start Last Admin Trade Name Freq PRN Reason Stop Dose Admin Belladonna Alkaloids 60 ml 07/03/24 12:21 07/03/24 12:25 Belladonna Alkaloids 60 Ml Ml PO 07/03/24 12:22 60 ml ONCE ONE Administration Ondansetron HCl 4 mg 07/03/24 12:21 07/03/24 12:26 Ondansetron 4mg Odt SL 07/03/24 12:22 4 mg ONCE ONE Administration Medical Decision Narrative: In summary patient is a 73-year-old female who presents to the emergency department for evaluation of nausea and epigastric abdominal pain. Patient is hemodynamically stable upon arrival, afebrile. Physical exam is remarkable for nonreproducible epigastric pain on palpation of the chest however abdominal palpation does reproduce it. Bowel sounds are normal active patient is normal sinus rhythm on the bedside monitor, there is no rebound no guarding no rigid ity. Bowel sounds normal active.. Differential diagnosis includes gastroenteritis versus achalasia versus nausea vomiting etc. Initial workup was considered including labs and imaging but I had an interactive discussion with the patient and she has not tried antiemetics prior to presenting to the ER and via patient directed decision making she is agreeable to try that now before we investigate further. This is very typical of her presentation and there are no red flags to suggest any other etiology currently. Initial interventions include GI cocktail and Zofran. Upon reassessment patient reports improvement in her pain and is actually able to tolerate both liquid and solid food in the emergency department without nausea or vomiting. I had interactive discussion with the patient and via patient directed decision making and discharge she is comfortable going home with instructions to take her Zofran prior to meals and strict return precautions. Klein: Patient is well-known to this emergency department and frequently presents with similar symptoms. I evaluated her and do not believe she requires any acute workup and that conservative management is appropriate given her known history. After intervention in the ER, she is feeling improved and would like to be discharged which I believe is appropriate. I was consulted by the [facility], and we discussed the complexity of problems being addressed. I approved the treatment and management plan for this patient's care in the emergency department, thus performing a substantial portion of the medical decision making. Felicita Klein MD Critical Care <ANJUM Pascual - Last Filed: 07/03/24 14:22> Critical Care Time Critical Care Time: No
[2024-07-03] MEDS: BELLADONNA ALKALOIDS 60 ML ML PO (12:25)
[2024-07-03] MEDS: ONDANSETRON 4MG ODT 4 MG SL (12:26)
[2024-07-03 13:59] VITALS: BP 134/74; PULSE 82; RESP 18; TEMP 36.7; O2SAT 97
== END 2024-07-03 14:07 | disposition home or self-care (01) ==
PROVIDERS: Emergency Provider Emergency Medicine; PCP Internal Medicine
DX: R11.2 Nausea with vomiting, unspecified (principal); R10.13 Epigastric pain; R13.10 Dysphagia, unspecified
CPT/HCPCS: 99283; Q0162

== ENCOUNTER 2024-07-08 11:39 | Emergency (ER) | payer MEDICARE, OTHER, SELFPAY ==
[2024-07-08 13:13] VITALS: BP 123/50; PULSE 68; RESP 18; TEMP 36.8; O2SAT 97; BMI 22.4
[2024-07-08 13:22] LABS: UTC Strep Screen (Rapid) Negative (Negative)
--- NOTE | 2024-07-08 13:29 | ED_ITS ---
Discharge Plan Disposition Patient Disposition: Home, Self-Care Condition: Good Prescriptions Prescriptions: New azithromycin [Zithromax] 250 mg tablet 250 mg PO UD DOSE PK Qty: 6 0RF Rx Instructions: Take two (2) tablets today, then one (1) tablet days #2 thru #5 benzonatate 100 mg capsule 100 mg PO TIDP PRN (Reason: Cough) Qty: 30 0RF methylprednisolone 4 mg Tablets,Dose Pack 4 mg PO DIRECTED 6 Days Qty: 21 0RF Rx Instructions: Take 1 pack as directed for 6 days No Action metoprolol succinate 50 mg tablet extended release 24 hr See Rx Instructions .ROUTE .COMPLEX Qty: 90 3RF Dose Instruction: TAKE ONE TABLET BY MOUTH ONCE A DAY FOR HIGH BLOOD PRESSURE Rx Instructions: TAKE ONE TABLET BY MOUTH ONCE A DAY FOR HIGH BLOOD PRESSURE amlodipine 5 mg tablet 5 mg PO DAILY Qty: 30 5RF isosorbide mononitrate 30 mg tablet extended release 24 hr 30 mg PO DAILY Qty: 90 1RF metformin 500 mg tablet 500 mg PO BID Qty: 180 1RF atorvastatin 40 mg tablet 40 mg PO DAILY Qty: 90 1RF diazepam 2 mg tablet 2 mg PO TID Qty: 90 2RF fluticasone propionate 50 mcg/actuation spray,suspension 2 spray intranasal DAILY Qty: 16 5RF omeprazole 20 mg capsule,delayed release(DR/EC) 20 mg PO DAILY Qty: 90 1RF venlafaxine 37.5 mg tablet 37.5 mg PO BID Qty: 180 1RF famotidine 20 mg tablet See Rx Instructions .ROUTE .COMPLEX Qty: 90 3RF Dose Instruction: TAKE ONE TABLET BY MOUTH ONCE A DAY FOR GERD Rx Instructions: TAKE ONE TABLET BY MOUTH ONCE A DAY FOR GERD clopidogrel 75 mg tablet See Rx Instructions .ROUTE .COMPLEX Qty: 90 1RF Dose Instruction: TAKE ONE TABLET BY MOUTH DAY Rx Instructions: TAKE ONE TABLET BY MOUTH DAY quetiapine [Seroquel] 50 mg tablet 50 mg PO HS Qty: 90 1RF alendronate 70 mg tablet See Rx Instructions .ROUTE .COMPLEX Qty: 12 1RF Dose Instruction: TAKE ONE TABLET BY MOUTH ONCE A WEEK Rx Instructions: TAKE ONE TABLET BY MOUTH ONCE A WEEK gabapentin 100 mg capsule See Rx Instructions .ROUTE .COMPLEX Qty: 60 0RF Dose Instruction: TAKE 2 CAPSULES (200 MG) BY MOUTH AT BEDTIME Rx Instructions: TAKE 2 CAPSULES (200 MG) BY MOUTH AT BEDTIME prednisone 10 mg tablet 10 mg PO DIRECTED 9 Days Qty: 14 0RF Rx Instructions: Take 4 tablets daily for 2 days, then take 2 tablets daily for 2 days, then take 1 tablet daily for 2 days, then stop. fluconazole 150 mg tablet 150 mg PO ONCE Qty: 1 3RF benzonatate 100 mg capsule 100 mg PO TIDP PRN (Reason: Cough) Qty: 30 0RF Probiotic 15 billion cell capsule, sprinkle 1 cap PO DAILY 30 Days Qty: 30 0RF Rx Instructions: do not crush/chew/cut; swallow whole OR may open and sprinkle in cold drink/food aspirin 81 mg tablet,chewable 81 mg PO DAILY Referrals Follow up/Referrals: Hansel Ruff MD [Primary Care Provider] - See instructions Activity Restrictions/Add. Instructions Additional Instructions/Restrictions: Drink plenty of fluids. Take tylenol or ibuprofen for pain or fever. Take the medications as directed. Follow up with your regular doctor. GO TO THE ER FOR ANY WORSENING SYMPTOMS Clinical Impressions Clinical Impression: Bronchitis, Sinusitis, Pharyngitis Instructions Patient Instructions: Sinusitis, DI for Sinusitis Print Language Print Language: Kyrgyz Discharge ED Provider: Trevor Mccray [facility] HPI General Stated complaint: cough, sore throat Mode of Arrival: Ambulatory Source of Information: Patient Time Seen by Provider: 07/08/24 13:17 Description of Symptoms (Recalled from Triage Doc. by RN): COUGH, SORE THROAT HEENT Symptoms (Recalled from RN notes): Yes Resp Symptoms (Recalled from RN notes): Yes Skin Symptoms (Recalled from RN notes): No MS Symptoms (Recalled from RN notes): No Functional Status (Recalled from RN notes): WNL Related Data Home Medications ?Medication ?Instructions ?Recorded ?Confirmed aspirin 81 mg chewable tablet 81 mg PO DAILY 07/21/23 06/27/24 Previous Rx's ?Medication ?Instructions ?Recorded metoprolol succinate 50 mg See Rx Instructions .Route 10/11/23 tablet,extended release 24 hr .COMPLEX #90 tabs amlodipine 5 mg tablet 5 mg PO DAILY #30 tabs 02/11/24 atorvastatin 40 mg tablet 40 mg PO DAILY #90 tabs 04/11/24 isosorbide mononitrate 30 mg 30 mg PO DAILY #90 tabs 04/11/24 tablet,extended release 24 hr metformin 500 mg tablet 500 mg PO BID #180 tabs 04/11/24 diazepam 2 mg tablet 2 mg PO TID #90 tabs 05/15/24 fluticasone propionate 50 2 spray intranasal DAILY #16 grams 05/15/24 mcg/actuation nasal spray,suspension omeprazole 20 mg capsule,delayed 20 mg PO DAILY #90 caps 05/15/24 release venlafaxine 37.5 mg tablet 37.5 mg PO BID mood #180 tabs 05/15/24 alendronate 70 mg tablet See Rx Instructions .Route 06/12/24 .COMPLEX #12 tabs clopidogrel 75 mg tablet See Rx Instructions .Route 06/12/24 .COMPLEX #90 tabs famotidine 20 mg tablet See Rx Instructions .Route 06/12/24 .COMPLEX #90 tabs quetiapine 50 mg tablet (Seroquel) 50 mg PO HS #90 tabs 06/12/24 benzonatate 100 mg capsule 100 mg PO TIDP PRN Cough #30 caps 06/16/24 fluconazole 150 mg tablet 150 mg PO ONCE 1 dose #1 tab 06/16/24 lactobacillus combo no.11 15 1 cap PO DAILY 30 days #30 caps 06/16/24 billion cell sprinkle capsule (Probiotic) prednisone 10 mg tablet 10 mg PO DIRECTED 9 days #14 06/16/24 tabs gabapentin 100 mg capsule See Rx Instructions .Route 07/06/24 .COMPLEX #60 caps azithromycin 250 mg tablet 250 mg PO UD DOSE PK #6 tabs 07/08/24 (Zithromax) benzonatate 100 mg capsule 100 mg PO TIDP PRN Cough #30 caps 07/08/24 methylprednisolone 4 mg tablets in 4 mg PO DIRECTED 6 days #21 tabs 07/08/24 a dose pack Allergies Allergy/AdvReac Type Severity Reaction Status Date / Time codeine (CODEINE) Allergy Unknown WEAK Verified 06/27/24 14:09 hydrochlorothiazide Allergy Unknown I-RASH Verified 06/27/24 14:09 (HYDROCHLOROTHIAZIDE) hydrocodone (HYDROCODONE) Allergy Unknown I-RASH Verified 06/27/24 14:09 metoclopramide Allergy Unknown SLURRED Verified 06/27/24 14:09 (METOCLOPRAMIDE) SPEECH, WEAK nifedipine (NIFEDIPINE) Allergy Unknown I-HIVES Verified 06/27/24 14:09 prazosin (PRAZOSIN) Allergy Unknown ITCHING/WEA Verified 06/27/24 14:09 K triamterene (TRIAMTERENE) Allergy Unknown I-RASH Verified 06/27/24 14:09 Worker's Comp Is this a Worker's Comp case?: No [facility] Disclaimer: The information contained in this section may have been updated after the patient was seen, as this information can be updated by other users. 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 Family History Other Family history of cancer Family history of diabetes mellitus type II Family history of hypertension Family history of myocardial infarction Social History Smoking Status: Never smoker second hand exposure: Yes alcohol intake: never substance use type: denies use current occupational status: retired Travel in the last 8 weeks: None household members: none housing: apartment lives independently: Yes marital status: single education level: middle school service: No senior living: No current occupational exposures/hazards: No caffeine: Yes do you feel safe at home: Yes victim of physical abuse: No victim of emotional abuse: No victim of sexual abuse: No would you like helpful sources: No Have you lived/traveled outside [place] in past 30 days?: No Contact w/someone who lives/traveled outside [place] past 30 days?: No Exposure to someone with infectious disease in past 14 days?: No Do you have a fever (greater than 100.4 F or 38 C)?: No Have you tested positive for COVID-19: No Exposed to someone with COVID-19 in past 14 days?: No Do you have a sore throat?: Yes Do you have a cough?: No Do you have any weakness?: No Do you have any diarrhea?: No Are you experiencing any unusual bleeding?: No Do you have any muscle aches/pain?: No Do you have any abdominal pain?: No Are you experiencing loss of taste or smell?: No ROS Obtained: Yes All systems reviewed & no additional complaints except as documented Constitutional Constitutional: Reports chills and Reports fever(s) Eyes Eyes: Denies eye discharge ENT Ears, Nose, Mouth, and Throat: Reports as per HPI Cardiovascular Cardiovascular: Denies chest pain Respiratory Respiratory: Denies shortness of breath, Reports chest congestion, Reports cough, Denies stridor and Denies wheezing Gastrointestinal Gastrointestingal: Reports nausea; Denies abdominal pain, constipation, crampi ng, diarrhea or vomiting Musculoskeletal Musculoskeletal: Denies arthralgias Integumentary/Breasts Skin/Breast: Denies rash Neurologic Neurologic: Denies paresthesias Allergic/Immunologic Allergic/Immunologic: Denies wheezing Physical Exam General General appearance: alert and in no apparent distress Head Head exam: atraumatic, normocephalic and normal inspection Eye Eye exam: Present normal appearance, PERRL and EOMI ENT ENT exam: Present mucous membranes moist and normal external ear exam Expanded ENT Exam TM/Canal exam: Bilateral TM: erythema and bulging Nose exam: Absent sinus tenderness Mouth exam: Present normal external inspection; Absent drooling Teeth exam: Present normal inspection Throat exam: Present tonsillar erythema, tonsillomegaly and tonsillar exudate Neck Neck exam: Present normal inspection, full ROM and trachea midline; Absent tenderness, meningismus or lymphadenopathy Chest Chest inspection: Present normal inspection and symmetric chest wall rise; Absent tenderness Respiratory Respiratory exam: Present normal lung sounds bilaterally; Absent respiratory distress, wheezes, stridor or accessory muscle use Cardiovascular Cardiovascular exam: Present regular rate and normal rhythm; Absent systolic murmur or diastolic murmur Abdominal Exam Abdominal exam: Present soft and normal bowel sounds; Absent distention, tenderness, guarding, rebound or rigidity Extremities Exam Extremities exam: Present normal inspection and normal capillary refill; Absent calf tenderness Back Exam Back exam: Present normal inspection and full ROM; Absent tenderness, CVA tenderness (R) or CVA tenderness (L) Neurological Exam Neurological exam: Present alert, oriented X3 and CN II-XII intact Psychiatric Psychiatric exam: Present normal affect and normal mood Skin Skin exam: Present warm, dry, intact and normal color Medical Decision Making Medical Records Medical records reviewed: No I reviewed the patient's medical records. Screening: Per USPSTF and CDC recommendations, given the prevalence of disease in our [facility], it is our hospital?s policy to screen for HIV and viral Hepatitis for all patients aged 18 and over and those with ongoing risk factors. Chet Inquiry Pt receiving controlled substance: No Vital Signs: 07/08/24 13:13 Temperature 98.3 F Temperature Source Oral Pulse Rate [Left Radial] 68 Respiratory Rate 18 Blood Pressure [Left Arm] 123/50 L Blood Pressure Mean [Left Arm] 74 02 Sat by Pulse Oximetry 97 Lab Data Lab results reviewed: Yes I reviewed the patient's lab results. Lab Results 07/08/24 13:13: Strep Scn Rapid Clinic Negative Orders (Tests/Meds): ORDERS Category Date Time Status Strep Screen Confirmation Stat Micro 07/08/24 13:13 Received
[2024-07-08 14:08] VITALS: BP 123/50; PULSE 68; RESP 18; TEMP 36.8
== END 2024-07-08 14:12 | disposition home or self-care (01) ==
PROVIDERS: Emergency Provider Nurse Practitioner Family; PCP Internal Medicine
DX: J20.9 Acute bronchitis, unspecified (principal); J01.90 Acute sinusitis, unspecified; J02.9 Acute pharyngitis, unspecified; R50.9 Fever, unspecified; R05.9 Cough, unspecified; R11.0 Nausea
CPT/HCPCS: 87880; 99212; G0381

== ENCOUNTER 2024-07-14 09:37 | Emergency (ER) | payer MEDICARE, OTHER, SELFPAY ==
[2024-07-14 09:37] VITALS: BP 160/77; PULSE 70; RESP 18; TEMP 36.4; O2SAT 98; BMI 24.4
--- NOTE | 2024-07-14 09:46 | ECG_ITS ---
APPROVED REPORT Exam: Resting ECG HR:78 bpm ECG Measurements Heart Rate 78 AXES DE 157 P 74 QRSd 166 QRS 268 QT 399 T 69 QTc 433 Conclusion ELECTRONIC VENTRICULAR PACEMAKER ABNORMAL RHYTHM ECG UNCONFIRMED REPORT Electronically signed by : Trevor Cadena, 07/14/2024 16:02:11
--- NOTE | 2024-07-14 09:48 | PC.NURSE ---
Dr. Cadena at [facility] for pt eval
--- NOTE | 2024-07-14 09:51 | XR_ITS ---
FINAL REPORT CLINICAL HISTORY: dyspnea COMPARISON: 12/29/2023 FINDINGS: A portable view of the chest was obtained. The heart is normal in size. Patient is status post median sternotomy. Left sided pacer is unchanged.. The lungs are clear. There is no pleural effusion or pneumothorax. IMPRESSION: No acute process. Reviewed, Interpreted and Dictated by Yen Alatorre MD Transcribed by Tana Anderson Authenticated and [facility]
[2024-07-14 09:57] LABS: Basophils % 0.5 % (0.1-2.0); Eosinophils % 0.5 % (0.1-12.0); Hematocrit 32.4 % (37.0-47.0); Hemoglobin 11.1 g/dL (12.2-16.2); Lymphocytes # 0.8 K/mm3 (0.7-4.5); Lymphocytes % 18.7 % (10-50); Mean Corpuscular HGB Conc 34.3 g/dL (31.8-35.4); Mean Corpuscular Hemoglobin 31.4 pg (27.0-31.2); Mean Corpuscular Volume 91.5 fl (81-99); Mean Platelet Volume 10.2 fl (7.4-10.4); Monocytes # 0.3 K/mm3 (0.1-1.0); Monocytes % 7.9 % (1.7-9.3); Neutrophils % 70.7 % (37.0-80.0); Platelet Count 213 K/mm3 (142-424); Red Blood Count 3.54 M/mm3 (4.20-5.40); Red Cell Distribution Width 13.7 % (11.5-17.5); White Blood Count 4.2 K/mm3 (4.8-10.8)
--- NOTE | 2024-07-14 09:57 | HMH.EDGENADL ---
Discharge Plan Disposition Patient Disposition: Home, Self-Care Prescriptions Prescriptions: No Action metoprolol succinate 50 mg tablet extended release 24 hr See Rx Instructions .ROUTE .COMPLEX Qty: 90 3RF Dose Instruction: TAKE ONE TABLET BY MOUTH ONCE A DAY FOR HIGH BLOOD PRESSURE Rx Instructions: TAKE ONE TABLET BY MOUTH ONCE A DAY FOR HIGH BLOOD PRESSURE amlodipine 5 mg tablet 5 mg PO DAILY Qty: 30 5RF isosorbide mononitrate 30 mg tablet extended release 24 hr 30 mg PO DAILY Qty: 90 1RF metformin 500 mg tablet 500 mg PO BID Qty: 180 1RF atorvastatin 40 mg tablet 40 mg PO DAILY Qty: 90 1RF diazepam 2 mg tablet 2 mg PO TID Qty: 90 2RF fluticasone propionate 50 mcg/actuation spray,suspension 2 spray intranasal DAILY Qty: 16 5RF omeprazole 20 mg capsule,delayed release(DR/EC) 20 mg PO DAILY Qty: 90 1RF venlafaxine 37.5 mg tablet 37.5 mg PO BID Qty: 180 1RF famotidine 20 mg tablet See Rx Instructions .ROUTE .COMPLEX Qty: 90 3RF Dose Instruction: TAKE ONE TABLET BY MOUTH ONCE A DAY FOR GERD Rx Instructions: TAKE ONE TABLET BY MOUTH ONCE A DAY FOR GERD clopidogrel 75 mg tablet See Rx Instructions .ROUTE .COMPLEX Qty: 90 1RF Dose Instruction: TAKE ONE TABLET BY MOUTH DAY Rx Instructions: TAKE ONE TABLET BY MOUTH DAY quetiapine [Seroquel] 50 mg tablet 50 mg PO HS Qty: 90 1RF alendronate 70 mg tablet See Rx Instructions .ROUTE .COMPLEX Qty: 12 1RF Dose Instruction: TAKE ONE TABLET BY MOUTH ONCE A WEEK Rx Instructions: TAKE ONE TABLET BY MOUTH ONCE A WEEK gabapentin 100 mg capsule See Rx Instructions .ROUTE .COMPLEX Qty: 60 0RF Dose Instruction: TAKE 2 CAPSULES (200 MG) BY MOUTH AT BEDTIME Rx Instructions: TAKE 2 CAPSULES (200 MG) BY MOUTH AT BEDTIME prednisone 10 mg tablet 10 mg PO DIRECTED 9 Days Qty: 14 0RF Rx Instructions: Take 4 tablets daily for 2 days, then take 2 tablets daily for 2 days, then take 1 tablet daily for 2 days, then stop. fluconazole 150 mg tablet 150 mg PO ONCE Qty: 1 3RF benzonatate 100 mg capsule 100 mg PO TIDP PRN (Reason: Cough) Qty: 30 0RF Probiotic 15 billion cell capsule, sprinkle 1 cap PO DAILY 30 Days Qty: 30 0RF Rx Instructions: do not crush/chew/cut; swallow whole OR may open and sprinkle in cold drink/food azithromycin [Zithromax] 250 mg tablet 250 mg PO UD DOSE PK Qty: 6 0RF Rx Instructions: Take two (2) tablets today, then one (1) tablet days #2 thru #5 benzonatate 100 mg capsule 100 mg PO TIDP PRN (Reason: Cough) Qty: 30 0RF methylprednisolone 4 mg Tablets,Dose Pack 4 mg PO DIRECTED 6 Days Qty: 21 0RF Rx Instructions: Take 1 pack as directed for 6 days aspirin 81 mg tablet,chewable 81 mg PO DAILY Clinical Impressions Clinical Impression: Chronic pain, Anxiety, Atypical chest pain Print Language Print Language: Korean Discharge ED Provider: Karo Cadena General Adult HPI General Chief complaint: Chest Pain Stated complaint: CP Time Seen by Provider: 07/14/24 09:45 History of Present Illness HPI narrative: Patient is a 73-year-old female very well-known to our emergency department with a history of chronic anxiety with numerous emergency department visits who presents today with chest pain and sadness about her overall health he states. She states to me that this chest/abdominal discomfort is chronic and really the same as she has been having for extremely long period of time. She has had numerous CT images and Emergency Department visits without any identifiable emergent medical cause in the past. Her chest pain been ongoing since last night substernal epigastric in nature. She typically gets better with a GI cocktail. Related Data Home Medications ?Medication ?Instructions ?Recorded ?Confirmed aspirin 81 mg chewable tablet 81 mg PO DAILY 07/21/23 06/27/24 Previous Rx's ?Medication ?Instructions ?Recorded metoprolol succinate 50 mg See Rx Instructions .Route 10/11/23 tablet,extended release 24 hr .COMPLEX #90 tabs amlodipine 5 mg tablet 5 mg PO DAILY #30 tabs 02/11/24 atorvastatin 40 mg tablet 40 mg PO DAILY #90 tabs 04/11/24 isosorbide mononitrate 30 mg 30 mg PO DAILY #90 tabs 04/11/24 tablet,extended release 24 hr metformin 500 mg tablet 500 mg PO BID #180 tabs 04/11/24 diazepam 2 mg tablet 2 mg PO TID #90 tabs 11/04/24 fluticasone propionate 50 2 spray intranasal DAILY #16 grams 05/15/24 mcg/actuation nasal spray,suspension omeprazole 20 mg capsule,delayed 20 mg PO DAILY #90 caps 05/15/24 release venlafaxine 37.5 mg tablet 37.5 mg PO BID mood #180 tabs 05/15/24 alendronate 70 mg tablet See Rx Instructions .Route 06/12/24 .COMPLEX #12 tabs clopidogrel 75 mg tablet See Rx Instructions .Route 06/12/24 .COMPLEX #90 tabs famotidine 20 mg tablet See Rx Instructions .Route 06/12/24 .COMPLEX #90 tabs quetiapine 50 mg tablet (Seroquel) 50 mg PO HS #90 tabs 06/12/24 benzonatate 100 mg capsule 100 mg PO TIDP PRN Cough #30 caps 06/16/24 fluconazole 150 mg tablet 150 mg PO ONCE 1 dose #1 tab 06/16/24 lactobacillus combo no.11 15 1 cap PO DAILY 30 days #30 caps 06/16/24 billion cell sprinkle capsule (Probiotic) prednisone 10 mg tablet 10 mg PO DIRECTED 9 days #14 06/16/24 tabs gabapentin 100 mg capsule See Rx Instructions .Route 07/06/24 .COMPLEX #60 caps azithromycin 250 mg tablet 250 mg PO UD DOSE PK #6 tabs 07/08/24 (Zithromax) benzonatate 100 mg capsule 100 mg PO TIDP PRN Cough #30 caps 07/08/24 methylprednisolone 4 mg tablets in 4 mg PO DIRECTED 6 days #21 tabs 07/08/24 a dose pack Allergies Allergy/AdvReac Type Severity Reaction Status Date / Time codeine (CODEINE) Allergy Unknown WEAK Verified 06/27/24 14:09 hydrochlorothiazide Allergy Unknown I-RASH Verified 06/27/24 14:09 (HYDROCHLOROTHIAZIDE) hydrocodone (HYDROCODONE) Allergy Unknown I-RASH Verified 06/27/24 14:09 metoclopramide Allergy Unknown SLURRED Verified 06/27/24 14:09 (METOCLOPRAMIDE) SPEECH, WEAK nifedipine (NIFEDIPINE) Allergy Unknown I-HIVES Verified 06/27/24 14:09 prazosin (PRAZOSIN) Allergy Unknown ITCHING/WEA Verified 06/27/24 14:09 K triamterene (TRIAMTERENE) Allergy Unknown I-RASH Verified 06/27/24 14:09 PFSH PFSH Disclaimer: The information contained in this section may have been updated after the patient was seen, as this information can be updated by other users. 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 Family History Other Family history of cancer Family history of diabetes mellitus type II Family history of hypertension Family history of myocardial infarction Social History Smoking Status: Never smoker second hand exposure: Yes alcohol intake: never substance use type: denies use current occupational status: retired Travel in the last 8 weeks: None household members: none housing: apartment lives independently: Yes marital status: single education level: middle school service: No longterm: No current occupational exposures/hazards: No caffeine: Yes do you feel safe at home: Yes victim of physical abuse: No victim of emotional abuse: No victim of sexual abuse: No would you like helpful sources: No Have you lived/traveled outside [place] in past 30 days?: No Contact w/someone who lives/traveled outside [place] past 30 days?: No Exposure to someone with infectious disease in past 14 days?: Yes Do you have a fever (greater than 100.4 F or 38 C)?: No Have you tested positive for COVID-19: No Exposed to someone with COVID-19 in past 14 days?: No Do you have a sore throat?: No Do you have a cough?: No Do you have any weakness?: No Do you have any diarrhea?: No Are you experiencing any unusual bleeding?: No Do you have any muscle aches/pain?: No Do you have any abdominal pain?: No Are you experiencing loss of taste or smell?: No Other Medical History Have you received the Flu Vaccine for this season: No Have you received the Pneumonia Vaccine: Yes ROS Obtained: Yes All systems reviewed & no additional complaints except as documented Physical Exam General General appearance: alert Respiratory Respiratory exam: Present normal lung sounds bilaterally and respiratory distress Cardiovascular Cardiovascular exam: Present regular rate and normal rhythm Abdominal Exam Abdominal exam: Present soft; Absent distention or tenderness Neurological Exam Neurological exam: Present alert Medical Decision Making Medical Records Screening: Per USPSTF and CDC recommendations, given the prevalence of disease in our region, it is our hospital?s policy to screen for HIV and viral Hepatitis for all patients aged 18 and over and those with ongoing risk factors. Chet Inquiry Pt receiving controlled substance: No Vital Signs: 07/14/24 09:37 07/14/24 09:59 07/14/24 10:30 Temperature 97.5 F L Temperature Source Oral Pulse Rate 72 73 Pulse Rate [Right] 70 Respiratory Rate 18 Blood Pressure 128/63 122/63 Blood Pressure [Right Arm] 160/77 H Blood Pressure Mean [Right Arm] 104 Blood Pressure Source [Right Arm] Automatic Cuff 02 Sat by Pulse Oximetry 98 97 96 Oxygen Delivery Method Room Air Room Air Room Air Lab Data Lab Results 07/14/24 09:50: WBC 4.2 L, RBC 3.54 L, Hgb 11.1 L, Hct 32.4 L, MCV 91.5, MCH 31.4 H, MCHC 34.3, RDW 13.7, Plt Count 213, MPV 10.2, Neut % (Auto) 70.7, Lymph % (Auto) 18.7, [place] % (Auto) 7.9, Eos % (Auto) 0.5, Baso % (Auto) 0.5, Neut # (Auto) 3.0, Lymph # (Auto) 0.8, [place] # (Auto) 0.3, Eos # (Auto) 0.0, Baso # (Auto) 0.0, Sodium 139, Potassium 3.8, Chloride 102, Carbon Dioxide 24, Anion Gap 16.8 H, BUN 23 H, Creatinine 0.80, Estimated GFR 70, Est GFR ( Amer) 85, Glucose 156 H, Calcium 10.3 H, Total Bilirubin 0.5, AST 28, ALT 30, Alkaline Phosphatase 71, Troponin I < 0.01, Total Protein 6.8, Albumin 4.8, Globulin 2.0, Albumin/Globulin Ratio 2.4 H, Lipase 57 07/14/24 09:50 07/14/24 09:50 Orders (Tests/Meds): ED MEDICATIONS Discontinued Medications Generic Name Dose Route Start Last Admin Trade Name Freq PRN Reason Stop Dose Admin Belladonna Alkaloids 60 ml 07/14/24 09:51 07/14/24 10:06 Belladonna Alkaloids 60 Ml Ml PO 07/14/24 09:52 60 ml ONCE ONE Administration ORDERS Category Date Time Status CXR --portable [XR chest portable] Stat Exams 07/14/24 09:51 Completed CBC w/Auto Diff [Complete Blood Count Auto Diff] Stat Lab 07/14/24 09:50 Completed CMP [Comprehensive Metabolic Panel] Stat Lab 07/14/24 09:50 Completed HIV Combo Stat Lab 07/14/24 09:50 Received Hep C Ab with Reflex to RNA Stat Lab 07/14/24 09:50 Received Lipase Stat Lab 07/14/24 09:50 Completed Trop I [Troponin I] Stat Lab 07/14/24 09:50 Completed Troponin I Q3H Lab 07/14/24 13:00 Ordered Troponin I Q3H Lab 07/14/24 16:00 Ordered Medical Decision Narrative: 73-year-old with above history and physical she is very well-known to our emergency department and she appears to be at her baseline she is tearful about her overall health but has chronic abdominal and epigastric and chest discomfort. With a single troponin and single set of labs administer a GI cocktail and reassess. Unlikely that I will do any additional serial testing or imaging or admission etc. EKG performed which I personally interpreted shows a ventricular rate of 78 ventricular pacemaker Sgarbossa's negative cannot rule out ischemia but is appropriately paced. Chest x-ray performed which I personally interpreted shows no acute cardiopulmonary emergency Labs unremarkable the patient's chronic pain may be followed up outpatient patient discharged in stable condition Critical Care Critical Care Time Critical Care Time: No
[2024-07-14 09:59] VITALS: BP 128/63; PULSE 72; O2SAT 97
[2024-07-14 10:06] LABS: Albumin Level 4.8 g/dl (3.5-5.0); Chloride 102 mmol/L (98-107); Potassium 3.8 mmoL/L (3.5-5.1); Sodium 139 mmol/L (136-145)
[2024-07-14] MEDS: BELLADONNA ALKALOIDS 60 ML ML PO (10:06)
[2024-07-14 10:09] LABS: Alanine Aminotransferase 30 U/L (12-78); Albumin/Globulin Ratio 2.4 (1.1-1.8); Alkaline Phosphatase 71 U/L (38-126); Anion Gap 16.8 mEq/L (5-15); Aspartate Amino Transferase 28 U/L (14-36); Bilirubin,Total 0.5 mg/dl (0.2-1.3); Blood Urea Nitrogen 23 mg/dl (7-17); Carbon Dioxide 24 mmol/L (22.0-30.0); Estimated Glomerular Filt Rate 70 ml/min (>60); GFR (African American) 85 ML/MIN (>60); Lipase 57 U/L (23-300); Total Protein,Serum 6.8 g/dl (6.3-8.2)
[2024-07-14 10:10] LABS: Calcium 10.3 mg/dl (8.4-10.2); Glucose 156 mg/dl (74-100)
[2024-07-14 10:21] LABS: Troponin I < 0.01 ng/ml (0.00-0.034)
[2024-07-14 10:30] VITALS: BP 122/63; PULSE 73; O2SAT 96
[2024-07-14 11:16] LABS: HIV Combo NEGATIVE (Negative)
[2024-07-14 11:30] VITALS: BP 128/78; PULSE 70; RESP 17; TEMP 36.7; O2SAT 98
[2024-07-15 06:10] LABS: HCV Ab Non Reactive (Non Reactive)
== END 2024-07-14 11:31 | disposition home or self-care (01) ==
PROVIDERS: Emergency Provider Student in an Organized Health Care Education/Training Program; PCP Internal Medicine
DX: R07.89 Other chest pain (principal); F41.9 Anxiety disorder, unspecified; G89.29 Other chronic pain; R07.9 Chest pain, unspecified; R10.13 Epigastric pain
CPT/HCPCS: 71045; 80053; 83690; 84484; 85025; 86803; 87389; 93005; 99284

== ENCOUNTER 2024-07-15 15:14 | Emergency (ER) | payer MEDICARE, OTHER, SELFPAY ==
[2024-07-15 15:15] VITALS: BP 152/67; PULSE 69; RESP 16; TEMP 36.7; O2SAT 97; BMI 25.0
--- NOTE | 2024-07-15 15:22 | ED_ITS ---
<Statement entered by Jean Carlos Hester MD - 07/15/24 23:40> [place] Attestation I was consulted by the [place], and we discussed the complexity of problems being addressed. I approved the treatment and management plan for this patient's care in the emergency department, thus performing a substantial portion of the medical decision making. Jean Carlos Hester MD Discharge Plan Disposition Patient Disposition: Home, Self-Care Condition: Good Prescriptions Prescriptions: New acetaminophen [Tylenol] 325 mg tablet 325 mg PO QID PRN (Reason: pain) Qty: 30 0RF No Action metoprolol succinate 50 mg tablet extended release 24 hr See Rx Instructions .ROUTE .COMPLEX Qty: 90 3RF Dose Instruction: TAKE ONE TABLET BY MOUTH ONCE A DAY FOR HIGH BLOOD PRESSURE Rx Instructions: TAKE ONE TABLET BY MOUTH ONCE A DAY FOR HIGH BLOOD PRESSURE amlodipine 5 mg tablet 5 mg PO DAILY Qty: 30 5RF isosorbide mononitrate 30 mg tablet extended release 24 hr 30 mg PO DAILY Qty: 90 1RF metformin 500 mg tablet 500 mg PO BID Qty: 180 1RF atorvastatin 40 mg tablet 40 mg PO DAILY Qty: 90 1RF diazepam 2 mg tablet 2 mg PO TID Qty: 90 2RF fluticasone propionate 50 mcg/actuation spray,suspension 2 spray intranasal DAILY Qty: 16 5RF omeprazole 20 mg capsule,delayed release(DR/EC) 20 mg PO DAILY Qty: 90 1RF venlafaxine 37.5 mg tablet 37.5 mg PO BID Qty: 180 1RF famotidine 20 mg tablet See Rx Instructions .ROUTE .COMPLEX Qty: 90 3RF Dose Instruction: TAKE ONE TABLET BY MOUTH ONCE A DAY FOR GERD Rx Instructions: TAKE ONE TABLET BY MOUTH ONCE A DAY FOR GERD clopidogrel 75 mg tablet See Rx Instructions .ROUTE .COMPLEX Qty: 90 1RF Dose Instruction: TAKE ONE TABLET BY MOUTH DAY Rx Instructions: TAKE ONE TABLET BY MOUTH DAY quetiapine [Seroquel] 50 mg tablet 50 mg PO HS Qty: 90 1RF alendronate 70 mg tablet See Rx Instructions .ROUTE .COMPLEX Qty: 12 1RF Dose Instruction: TAKE ONE TABLET BY MOUTH ONCE A WEEK Rx Instructions: TAKE ONE TABLET BY MOUTH ONCE A WEEK gabapentin 100 mg capsule See Rx Instructions .ROUTE .COMPLEX Qty: 60 0RF Dose Instruction: TAKE 2 CAPSULES (200 MG) BY MOUTH AT BEDTIME Rx Instructions: TAKE 2 CAPSULES (200 MG) BY MOUTH AT BEDTIME prednisone 10 mg tablet 10 mg PO DIRECTED 9 Days Qty: 14 0RF Rx Instructions: Take 4 tablets daily for 2 days, then take 2 tablets daily for 2 days, then take 1 tablet daily for 2 days, then stop. fluconazole 150 mg tablet 150 mg PO ONCE Qty: 1 3RF benzonatate 100 mg capsule 100 mg PO TIDP PRN (Reason: Cough) Qty: 30 0RF Probiotic 15 billion cell capsule, sprinkle 1 cap PO DAILY 30 Days Qty: 30 0RF Rx Instructions: do not crush/chew/cut; swallow whole OR may open and sprinkle in cold drink/food azithromycin [Zithromax] 250 mg tablet 250 mg PO UD DOSE PK Qty: 6 0RF Rx Instructions: Take two (2) tablets today, then one (1) tablet days #2 thru #5 benzonatate 100 mg capsule 100 mg PO TIDP PRN (Reason: Cough) Qty: 30 0RF methylprednisolone 4 mg Tablets,Dose Pack 4 mg PO DIRECTED 6 Days Qty: 21 0RF Rx Instructions: Take 1 pack as directed for 6 days aspirin 81 mg tablet,chewable 81 mg PO DAILY Referrals Follow up/Referrals: Hansel Ruff MD [Primary Care Provider] - See instructions Activity Restrictions/Add. Instructions Additional Instructions/Restrictions: No sign of a bacterial infection. Likely viral. Viruses can take 7-14 days to run their course. Nasal saline and bulb syringe or nose Brandi to remove nasal drainage to help with nasal congestion. Hard to eat, drink, sleep with nasal congestion so important to keep this cleaned out. Monitor temp. Tylenol or Motrin as needed for pain or fever Encourage fluids, water, Gatorade, Powerade, Pedialyte if infant/toddler/child Warm salt water gargles Warm fluids Sore throat lozenges Sleep elevated Humidifier/vaporizer Follow-up immediately for new or worsening symptoms or no noticeable improvement over the next 48-72 hours. Clinical Impressions Clinical Impression: Influenza A Instructions Patient Instructions: DI for Influenza -- Adult Print Language Print Language: French Discharge ED Provider: Jean Carlos Hester Adult HPI <Jean Carlos Hester MD - Last Filed: 07/15/24 15:22> General Chief complaint: Upper Respiratory Infection Stated complaint: Cough,hurting in lungs Time Seen by Provider: 07/15/24 15:22 Related Data Home Medications ?Medication ?Instructions ?Recorded ?Confirmed aspirin 81 mg chewable tablet 81 mg PO DAILY 07/21/23 06/27/24 Previous Rx's ?Medication ?Instructions ?Recorded metoprolol succinate 50 mg See Rx Instructions .Route 10/11/23 tablet,extended release 24 hr .COMPLEX #90 tabs amlodipine 5 mg tablet 5 mg PO DAILY #30 tabs 02/11/24 atorvastatin 40 mg tablet 40 mg PO DAILY #90 tabs 04/11/24 isosorbide mononitrate 30 mg 30 mg PO DAILY #90 tabs 04/11/24 tablet,extended release 24 hr metformin 500 mg tablet 500 mg PO BID #180 tabs 04/11/24 diazepam 2 mg tablet 2 mg PO TID #90 tabs 05/15/24 fluticasone propionate 50 2 spray intranasal DAILY #16 grams 05/15/24 mcg/actuation nasal spray,suspension omeprazole 20 mg capsule,delayed 20 mg PO DAILY #90 caps 05/15/24 release venlafaxine 37.5 mg tablet 37.5 mg PO BID mood #180 tabs 05/15/24 alendronate 70 mg tablet See Rx Instructions .Route 06/12/24 .COMPLEX #12 tabs clopidogrel 75 mg tablet See Rx Instructions .Route 06/12/24 .COMPLEX #90 tabs famotidine 20 mg tablet See Rx Instructions .Route 06/12/24 .COMPLEX #90 tabs quetiapine 50 mg tablet (Seroquel) 50 mg PO HS #90 tabs 06/12/24 benzonatate 100 mg capsule 100 mg PO TIDP PRN Cough #30 caps 06/16/24 fluconazole 150 mg tablet 150 mg PO ONCE 1 dose #1 tab 06/16/24 lactobacillus combo no.11 15 1 cap PO DAILY 30 days #30 caps 06/16/24 billion cell sprinkle capsule (Probiotic) prednisone 10 mg tablet 10 mg PO DIRECTED 9 days #14 06/16/24 tabs gabapentin 100 mg capsule See Rx Instructions .Route 07/06/24 .COMPLEX #60 caps azithromycin 250 mg tablet 250 mg PO UD DOSE PK #6 tabs 07/08/24 (Zithromax) benzonatate 100 mg capsule 100 mg PO TIDP PRN Cough #30 caps 07/08/24 methylprednisolone 4 mg tablets in 4 mg PO DIRECTED 6 days #21 tabs 07/08/24 a dose pack acetaminophen 325 mg tablet 325 mg PO QID PRN pain #30 tabs 07/15/24 (Tylenol) Allergies Allergy/AdvReac Type Severity Reaction Status Date / Time codeine (CODEINE) Allergy Unknown WEAK Verified 06/27/24 14:09 hydrochlorothiazide Allergy Unknown I-RASH Verified 06/27/24 14:09 (HYDROCHLOROTHIAZIDE) hydrocodone (HYDROCODONE) Allergy Unknown I-RASH Verified 06/27/24 14:09 metoclopramide Allergy Unknown SLURRED Verified 06/27/24 14:09 (METOCLOPRAMIDE) SPEECH, WEAK nifedipine (NIFEDIPINE) Allergy Unknown I-HIVES Verified 06/27/24 14:09 prazosin (PRAZOSIN) Allergy Unknown ITCHING/WEA Verified 06/27/24 14:09 K triamterene (TRIAMTERENE) Allergy Unknown I-RASH Verified 06/27/24 14:09 <[facility]), AG SERVICE MANAGER - Last Filed: 07/15/24 17:00> General Mode of Arrival: Ambulatory Source of Information: Patient Limitations: No Limitations History of Present Illness HPI narrative: 73-year-old female presents for pain in the left back just below the shoulder blade and congestion for 3 days. Patient was seen in the ER yesterday with a full workup. Patient requesting prescription for Tylenol [facility] <Jean Carlos Hester MD - Last Filed: 07/15/24 15:22> [facility] Disclaimer: The information contained in this section may have been updated after the patient was seen, as this information can be updated by other users. 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 MANAGER) History of permanent cardiac pacemaker placement S/P CABG x 1 Status post aortic valve replacement with bioprosthetic valve Family History , AG SERVICE MANAGER) Family history of cancer Family history of hypertension Family history of diabetes mellitus type II Family history of myocardial infarction Social History , ERIK) Smoking Status: Never smoker second hand exposure: Yes alcohol intake: never substance use type: denies use current occupational status: retired Travel in the last 8 weeks: None household members: none housing: apartment lives independently: Yes marital status: single education level: middle school service: No prison: No current occupational exposures/hazards: No caffeine: Yes do you feel safe at home: Yes victim of physical abuse: No victim of emotional abuse: No victim of sexual abuse: No would you like helpful sources: No Have you lived/traveled outside [place] in past 30 days?: No Contact w/someone who lives/traveled outside [place] past 30 days?: No Exposure to someone with infectious disease in past 14 days?: No Do you have a fever (greater than 100.4 F or 38 C)?: No Have you tested positive for COVID-19: No Exposed to someone with COVID-19 in past 14 days?: No Do you have a sore throat?: No Do you have a cough?: Yes Do you have any weakness?: No Do you have any diarrhea?: No Are you experiencing any unusual bleeding?: No Do you have any muscle aches/pain?: No Do you have any abdominal pain?: No Are you experiencing loss of taste or smell?: No Other Medical History Have you received the Flu Vaccine for this season: No Have you received the Pneumonia Vaccine: Yes <Juhi CorreaL[facility]ENTERERIK Da Silva - Last Filed: 07/15/24 17:00> ROS Obtained: Yes Systems reviewed as appropriate & no additional complaints except as documented Physical Exam <Jean Carlos Hester MD - Last Filed: 07/15/24 15:22> Back Exam Back 1 view image: 2 1. Tender <Ju[facility] CorreaL[facility]ENTERERIK Da Silva - Last Filed: 07/15/24 17:00> General General appearance: alert and in no apparent distress Eye Eye exam: Present normal appearance ENT ENT exam: Present normal exam, normal oropharynx and TM's normal bilaterally Chest Chest inspection: Present normal inspection and symmetric chest wall rise Respiratory Respiratory exam: Present normal lung sounds bilaterally Cardiovascular Cardiovascular exam: Present regular rate and normal rhythm Back Exam Back 1 view image: 2 1. Tender Neurological Exam Neurological exam: Present alert and oriented X3 Medical Decision Making <Jean Carlos Hester MD - Last Filed: 07/15/24 15:22> Medical Records Screening: Per USPSTF and CDC recommendations, given the prevalence of disease in our region, it is our hospital?s policy to screen for HIV and viral Hepatitis for all patients aged 18 and over and those with ongoing risk factors. Vital Signs: 07/15/24 15:15 07/15/24 16:30 Temperature 98.1 F Temperature Source Oral Pulse Rate 62 Pulse Rate [Right] 69 Respiratory Rate 16 Blood Pressure 128/60 Blood Pressure [Right Arm] 152/67 H Blood Pressure Mean [Right Arm] 95 02 Sat by Pulse Oximetry 97 98 Oxygen Delivery Method Room Air Room Air Orders (Tests/Meds): ORDERS Category Date Time Status Rapid PCR Covid and Flu A/B Stat Lab 07/15/24 15:37 Received EKG Request [ECG Request] Stat Y 07/15/24 15:44 Ordered <Juhi Guadarrama ([facility]), AG SERVICE MANAGER - Last Filed: 07/15/24 17:00> Medical Records Medical records reviewed: Yes I reviewed the patient's medical records. Chet Inquiry Pt receiving controlled substance: No Vital Signs: 07/15/24 15:15 07/15/24 16:30 Temperature 98.1 F Temperature Source Oral Pulse Rate 62 Pulse Rate [Right] 69 Respiratory Rate 16 Blood Pressure 128/60 Blood Pressure [Right Arm] 152/67 H Blood Pressure Mean [Right Arm] 95 02 Sat by Pulse Oximetry 97 98 Oxygen Delivery Method Room Air Room Air Lab Data Lab results reviewed: Yes I reviewed the patient's lab results. Orders (Tests/Meds): ORDERS Category Date Time Status Rapid PCR Covid and Flu A/B Stat Lab 07/15/24 15:37 Received EKG Request [ECG Request] Stat Y 07/15/24 15:44 Ordered Medical Decision Narrative: In summary patient is a 73-year-old female who presents to the emergency department for evaluation of pain on the left shoulder blade, cough and congestion. Patient is hemodynamically stable upon arrival, afebrile. Unremarkable physical exam. Differential diagnosis includes pulled muscle, upper respiratory. Initial workup will be conducted with COVID/flu swab and EKG. Initial inventions include COVID/flu swab and EKG. Initial workup reviewed by pa COVID flu swab test pending patient was discharged and can call with results. Upon repeat evaluation patient up walking around in the ER requesting discharge. Given this patient will be discharged with upper respiratory infection Critical Care <Juhi Guadarrama ([facility]), AG SERVICE MANAGER - Last Filed: 07/15/24 17:00> Critical Care Time Critical Care Time: No
--- NOTE | 2024-07-15 15:44 | ECG_ITS ---
APPROVED REPORT Exam: Resting ECG HR:70 bpm ECG Measurements Heart Rate 70 AXES OR 194 P 5 QRSd 157 QRS -16 QT 436 T 70 QTc 458 Conclusion ELECTRONIC VENTRICULAR PACEMAKER ABNORMAL RHYTHM ECG Electronically signed by : YAMILET ROONEY, 07/16/2024 15:30:36
[2024-07-15 15:51] LABS: Coronavirus 19, PCR Not Detected (NotDetected); Influenza B, PCR Not Detected (NotDetected)
[2024-07-15 16:30] VITALS: BP 128/60; PULSE 62; O2SAT 98
--- NOTE | 2024-07-15 16:53 | PC.NURSE ---
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 I left her a message. [phone]
--- NOTE | 2024-07-15 16:58 | PC.NURSE ---
Ronal white is going to come pick her up.
[2024-07-15 17:00] LABS: Influenza A, PCR Detected (NotDetected)
[2024-07-15 17:03] VITALS: BP 131/66; PULSE 67; RESP 18; TEMP 36.7; O2SAT 99
== END 2024-07-15 17:03 | disposition home or self-care (01) ==
PROVIDERS: Nurse Practitioner Family; Emergency Provider Student in an Organized Health Care Education/Training Program; PCP Internal Medicine
DX: J10.1 Influenza due to other identified influenza virus with other respiratory manifestations (principal); R05.9 Cough, unspecified; R09.81 Nasal congestion; M25.512 Pain in left shoulder
CPT/HCPCS: 87636; 93005; 99283

== ENCOUNTER 2024-08-24 16:32 | Emergency (ER) | payer MEDICARE, OTHER, SELFPAY ==
[2024-08-24 15:01] VITALS: BP 137/67; PULSE 72; RESP 18; TEMP 36.8; O2SAT 97; BMI 23.8
--- NOTE | 2024-08-24 15:33 | PC.NURSE ---
SPOKE WITH CARE MANAGEMENT TO MAKE PT AND APPT FOR [facility] TO AND FROM GI APPT ON 08/29/24 @ 10:30
[2024-08-24 16:11] LABS: Microscopic, Urine URINE MICROSCOPIC (MICROSCOPIC)
[2024-08-24 16:31] LABS: Appearance,Urine CLEAR (Clear); Bilirubin,Urine Negative (Negative); Blood, Urine TRACE-I (Negative); Color,Urine YELLOW (Yellow); Glucose,Urine (UA) Negative (Negative); Ketones,Urine Negative (Negative); Leukocyte Esterase,Urine 1+ (Negative); Nitrate,Urine Negative (Negative); Protein,Urine Negative (Negative); Specific Gravity, Urine 1.015 (1.005-1.030); Urobilinogen,Urine 0.2 EU/dl (0.2)
[2024-08-24 16:58] LABS: Bacteria,Urine 1+ /lpf; Squamous Epithelial Cell,Urine Occasional #/hpf (0-5); WBC,Urine Occasional #/hpf (0-3)
[2024-08-24 17:40] VITALS: BP 132/68; PULSE 76; RESP 16; TEMP 36.8; O2SAT 96
--- NOTE | 2024-08-24 20:34 | PC.NURSE ---
Rounding complete; patient has no needs. Resting in bed.
[2024-08-24 21:00] VITALS: BP 128/67; PULSE 66; O2SAT 98
--- NOTE | 2024-08-24 21:08 | PC.NURSE ---
Rounding complete; no needs at this time
[2024-08-24] MEDS: BELLADONNA ALKALOIDS 60 ML ML PO (21:48)
--- NOTE | 2024-08-24 21:55 | HMH.EDGENADL ---
Discharge Plan Disposition Patient Disposition: Home, Self-Care Condition: Good Prescriptions Prescriptions: No Action gabapentin 100 mg capsule See Rx Instructions .ROUTE .COMPLEX Qty: 60 0RF Dose Instruction: TAKE 2 CAPSULES (200 MG) BY MOUTH AT BEDTIME Rx Instructions: TAKE 2 CAPSULES (200 MG) BY MOUTH AT BEDTIME diazepam 2 mg tablet 2 mg PO TID Qty: 90 2RF ciprofloxacin HCl 250 mg tablet 250 mg PO BID Qty: 6 0RF metoprolol succinate 50 mg tablet extended release 24 hr See Rx Instructions .ROUTE .COMPLEX Qty: 90 3RF Dose Instruction: TAKE ONE TABLET BY MOUTH ONCE A DAY FOR HIGH BLOOD PRESSURE Rx Instructions: TAKE ONE TABLET BY MOUTH ONCE A DAY FOR HIGH BLOOD PRESSURE fluticasone propionate 50 mcg/actuation spray,suspension 2 spray intranasal DAILY Qty: 16 5RF omeprazole 20 mg capsule,delayed release(DR/EC) 20 mg PO DAILY Qty: 90 1RF venlafaxine 37.5 mg tablet 37.5 mg PO BID Qty: 180 1RF famotidine 20 mg tablet See Rx Instructions .ROUTE .COMPLEX Qty: 90 3RF Dose Instruction: TAKE ONE TABLET BY MOUTH ONCE A DAY FOR GERD Rx Instructions: TAKE ONE TABLET BY MOUTH ONCE A DAY FOR GERD clopidogrel 75 mg tablet See Rx Instructions .ROUTE .COMPLEX Qty: 90 1RF Dose Instruction: TAKE ONE TABLET BY MOUTH DAY Rx Instructions: TAKE ONE TABLET BY MOUTH DAY quetiapine [Seroquel] 50 mg tablet 50 mg PO HS Qty: 90 1RF alendronate 70 mg tablet See Rx Instructions .ROUTE .COMPLEX Qty: 12 1RF Dose Instruction: TAKE ONE TABLET BY MOUTH ONCE A WEEK Rx Instructions: TAKE ONE TABLET BY MOUTH ONCE A WEEK amlodipine 5 mg tablet See Rx Instructions .ROUTE .COMPLEX Qty: 90 0RF Dose Instruction: TAKE ONE TABLET BY MOUTH ONCE A DAY Rx Instructions: TAKE ONE TABLET BY MOUTH ONCE A DAY isosorbide mononitrate 30 mg tablet extended release 24 hr 30 mg PO DAILY Qty: 90 1RF metformin 500 mg tablet 500 mg PO BID Qty: 180 1RF atorvastatin 40 mg tablet 40 mg PO DAILY Qty: 90 1RF ondansetron 4 mg tablet,disintegrating 4 mg PO Q8H PRN (Reason: nausea and vomiting) Qty: 30 0RF Probiotic 15 billion cell capsule, sprinkle 1 cap PO DAILY 30 Days Qty: 30 0RF Rx Instructions: do not crush/chew/cut; swallow whole OR may open and sprinkle in cold drink/food acetaminophen [Tylenol] 325 mg tablet 325 mg PO QID PRN (Reason: pain) Qty: 30 0RF aspirin 81 mg tablet,chewable 81 mg PO DAILY Referrals Follow up/Referrals: Hansel Ruff MD [Primary Care Provider] - See instructions Activity Restrictions/Add. Instructions Additional Instructions/Restrictions: Rest. Increase fluid intake. Follow-up as scheduled next Wednesday. Return to the ED for worsening of condition. Clinical Impressions Clinical Impression: Abdominal pain Instructions Patient Instructions: DI for Acute Abdominal Pain Print Language Print Language: Stateless Discharge ED Provider: Lennox Conrad General Adult HPI <Yudelka Gunter APRN - Last Filed: 08/24/24 21:58> General Chief complaint: Abdominal Pain Stated complaint: ABDOMINAL PAIN Time Seen by Provider: 08/24/24 20:33 Mode of Arrival: EMS Source of Information: Patient Limitations: No Limitations Description of Symptoms (Recalled from ER Triage Doc. by RN): Pt arrives via [facility] from home with c/o abdominal pain that started today. Pt has a hx of chronic abdominal pain and has an appointment with GI on wednesday. Pt states she has nausea VSS BGL 134 History of Present Illness HPI narrative: Patient is a 73-year-old female who presents to the ED for complaints of chronic abdominal pain. Patient states her abdominal pain feels like her normal abdominal pain, has not changed and has not been worse in severity. Patient states she has a hernia which is what causes her pain, she advised she has an appointment with surgery next Wednesday. Related Data Home Medications ?Medication ?Instructions ?Recorded ?Confirmed aspirin 81 mg chewable tablet 81 mg PO DAILY 07/21/23 08/24/24 Previous Rx's ?Medication ?Instructions ?Recorded metoprolol succinate 50 mg See Rx Instructions .Route 10/11/23 tablet,extended release 24 hr .COMPLEX #90 tabs fluticasone propionate 50 2 spray intranasal DAILY #16 grams 05/15/24 mcg/actuation nasal spray,suspension omeprazole 20 mg capsule,delayed 20 mg PO DAILY #90 caps 05/15/24 release venlafaxine 37.5 mg tablet 37.5 mg PO BID mood #180 tabs 05/15/24 alendronate 70 mg tablet See Rx Instructions .Route 06/12/24 .COMPLEX #12 tabs clopidogrel 75 mg tablet See Rx Instructions .Route 06/12/24 .COMPLEX #90 tabs famotidine 20 mg tablet See Rx Instructions .Route 06/12/24 .COMPLEX #90 tabs quetiapine 50 mg tablet (Seroquel) 50 mg PO HS #90 tabs 06/12/24 lactobacillus combo no.11 15 1 cap PO DAILY 30 days #30 caps 06/16/24 billion cell sprinkle capsule (Probiotic) acetaminophen 325 mg tablet 325 mg PO QID PRN pain #30 tabs 07/15/24 (Tylenol) amlodipine 5 mg tablet See Rx Instructions .Route 08/11/24 .COMPLEX #90 tabs atorvastatin 40 mg tablet 40 mg PO DAILY #90 tabs 08/11/24 isosorbide mononitrate 30 mg 30 mg PO DAILY #90 tabs 08/11/24 tablet,extended release 24 hr metformin 500 mg tablet 500 mg PO BID #180 tabs 08/11/24 diazepam 2 mg tablet 2 mg PO TID #90 tabs 08/14/24 gabapentin 100 mg capsule See Rx Instructions .Route 08/14/24 .COMPLEX #60 caps ciprofloxacin HCl 250 mg tablet 250 mg PO BID #6 tabs 08/15/24 ondansetron 4 mg disintegrating 4 mg PO Q8H PRN nausea and 08/21/24 tablet vomiting #30 tabs Allergies Allergy/AdvReac Type Severity Reaction Status Date / Time codeine (CODEINE) Allergy Unknown WEAK Verified 08/15/24 13:14 hydrochlorothiazide Allergy Unknown I-RASH Verified 08/15/24 13:14 (HYDROCHLOROTHIAZIDE) hydrocodone (HYDROCODONE) Allergy Unknown I-RASH Verified 08/15/24 13:14 metoclopramide Allergy Unknown SLURRED Verified 08/15/24 13:14 (METOCLOPRAMIDE) SPEECH, WEAK nifedipine (NIFEDIPINE) Allergy Unknown I-HIVES Verified 08/15/24 13:14 prazosin (PRAZOSIN) Allergy Unknown ITCHING/WEA Verified 08/15/24 13:14 K triamterene (TRIAMTERENE) Allergy Unknown I-RASH Verified 08/15/24 13:14 [facility] <Yudelka Gunter, DIGESTER OPERATOR HELPER - Last Filed: 08/24/24 21:58> [facility] Disclaimer: The information contained in this section may have been updated after the patient was seen, as this information can be updated by other users. 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 Family History Other Family history of cancer Family history of diabetes mellitus type II Family history of hypertension Family history of myocardial infarction Social History Smoking Status: Never smoker second hand exposure: Yes alcohol intake: never substance use type: denies use current occupational status: retired Travel in the last 8 weeks: None household members: none housing: apartment lives independently: Yes marital status: single education level: middle school service: No retirement: No current occupational exposures/hazards: No caffeine: Yes do you feel safe at home: Yes victim of physical abuse: No victim of emotional abuse: No victim of sexual abuse: No would you like helpful sources: No Have you lived/traveled outside [place] in past 30 days?: No Contact w/someone who lives/traveled outside [place] past 30 days?: No Exposure to someone with infectious disease in past 14 days?: No Do you have a fever (greater than 100.4 F or 38 C)?: No Have you tested positive for COVID-19: No Exposed to someone with COVID-19 in past 14 days?: No Do you have a sore throat?: No Do you have a cough?: No Do you have any weakness?: No Do you have any diarrhea?: No Are you experiencing any unusual bleeding?: No Do you have any muscle aches/pain?: No Do you have any abdominal pain?: No Are you experiencing loss of taste or smell?: No Other Medical History Have you received the Flu Vaccine for this season: No Have you received the Pneumonia Vaccine: Yes <Yudelka Gunter APRN - Last Filed: 08/24/24 21:58> ROS Obtained: Yes Systems reviewed as appropriate & no additional complaints except as documented Physical Exam <Yudelka Gunter APRN - Last Filed: 08/24/24 21:58> General General appearance: alert and in no apparent distress Head Head exam: atraumatic and normocephalic Eye Eye exam: Present normal appearance and PERRL ENT ENT exam: Present normal exam Neck Neck exam: Present normal inspection Chest Chest inspection: Present normal inspection and symmetric chest wall rise; Absent tenderness Respiratory Respiratory exam: Present normal lung sounds bilaterally Cardiovascular Cardiovascular exam: Present regular rate Abdominal Exam Abdominal exam: Present soft and normal bowel sounds; Absent tenderness Extremities Exam Extremities exam: Present normal inspection and full ROM Back Exam Back exam: Present normal inspection and full ROM Neurological Exam Neurological exam: Present alert and oriented X3 Psychiatric Psychiatric exam: Present normal affect and normal mood Skin Skin exam: Present warm and dry Medical Decision Making <Yudelka Gunter APRN - Last Filed: 08/24/24 21:58> Medical Records Screening: Per USPSTF and CDC recommendations, given the prevalence of disease in our region, it is our hospital?s policy to screen for HIV and viral Hepatitis for all patients aged 18 and over and those with ongoing risk factors. Chet Inquiry Pt receiving controlled substance: No Chet was queried for this patient: No Vital Signs: 08/24/24 15:01 08/24/24 17:40 08/24/24 21:00 Temperature 98.3 F 98.3 F Temperature Source Oral Oral Pulse Rate 76 66 Pulse Rate [Right] 72 Respiratory Rate 18 16 Blood Pressure 132/68 128/67 Blood Pressure [Right Arm] 137/67 Blood Pressure Mean [Right Arm] 90 Blood Pressure Source Blood Pressure Source [Right Arm] Automatic Cuff Blood Pressure Position Sitting 02 Sat by Pulse Oximetry 97 96 98 Oxygen Delivery Method Room Air Room Air 08/24/24 22:04 Temperature 97.9 F Temperature Source Oral Pulse Rate 74 Pulse Rate [Right] Respiratory Rate 16 Blood Pressure 128/74 Blood Pressure [Right Arm] Blood Pressure Mean [Right Arm] Blood Pressure Source Automatic Cuff Blood Pressure Source [Right Arm] Blood Pressure Position Supine 02 Sat by Pulse Oximetry Oxygen Delivery Method Room Air Lab Data Lab Results 08/24/24 16:08: Urine Color Yellow, Urine Appearance Clear, Urine pH 6.0, Ur Specific [place] 1.015, Urine Protein Negative, Urine Glucose (UA) Negative, Urine Ketones Negative, Urine Blood Trace-i, Urine Nitrate Negative, Urine Bilirubin Negative, Urine Urobilinogen 0.2, Ur Leukocyte Esterase 1+ A, Urine RBC None, Urine WBC Occasional, Ur Squamous Epith Cells Occasional, Urine Bacteria 1+ Orders (Tests/Meds): ED MEDICATIONS Discontinued Medications Generic Name Dose Route Start Last Admin Trade Name Freq PRN Reason Stop Dose Admin Belladonna Alkaloids 60 ml 08/24/24 21:35 08/24/24 21:48 Belladonna Alkaloids 60 Ml Ml PO 08/24/24 21:36 60 ml ONCE ONE Administration ORDERS Category Date Time Status UA [Urinalysis and Microscopic] Stat Lab 08/24/24 16:08 Completed Urine Culture Stat Micro 08/24/24 16:08 Received Medical Decision Narrative: In summary, patient is a 73-year-old female PMHx GERD, hypertension, chronic abdominal pain, anxiety, DM, CAD, CABG who presents to the ED for complaints of chronic abdominal pain. Patient states she is having pain caused by her hernia, states it feels like her normal abdominal pain. She denies any changes in location or type of abdominal pain. She denies taking anything for pain prior to arrival. She states that she has follow-up with her surgeon next Wednesday. Denies fever, chills, headache, visual changes, nausea, vomiting, dysuria, diarrhea. Upon initial evaluation patient is alert, oriented and cooperative. She is hemodynamically stable. Her physical exam is unremarkable. Abdomen is soft and nontender. Patient given a GI cocktail which improved her symptoms. Patient is stable to be discharged home at this time. She is agreeable. <Lennox Conrad MD - Last Filed: 08/24/24 22:38> Vital Signs: 08/24/24 15:01 08/24/24 17:40 08/24/24 21:00 Temperature 98.3 F 98.3 F Temperature Source Oral Oral Pulse Rate 76 66 Pulse Rate [Right] 72 Respiratory Rate 18 16 Blood Pressure 132/68 128/67 Blood Pressure [Right Arm] 137/67 Blood Pressure Mean [Right Arm] 90 Blood Pressure Source Blood Pressure Source [Right Arm] Automatic Cuff Blood Pressure Position Sitting 02 Sat by Pulse Oximetry 97 96 98 Oxygen Delivery Method Room Air Room Air 08/24/24 22:04 Temperature 97.9 F Temperature Source Oral Pulse Rate 74 Pulse Rate [Right] Respiratory Rate 16 Blood Pressure 128/74 Blood Pressure [Right Arm] Blood Pressure Mean [Right Arm] Blood Pressure Source Automatic Cuff Blood Pressure Source [Right Arm] Blood Pressure Position Supine 02 Sat by Pulse Oximetry Oxygen Delivery Method Room Air Lab Data Lab Results 08/24/24 16:08: Urine Color Yellow, Urine Appearance Clear, Urine pH 6.0, Ur Specific [place] 1.015, Urine Protein Negative, Urine Glucose (UA) Negative, Urine Ketones Negative, Urine Blood Trace-i, Urine Nitrate Negative, Urine Bilirubin Negative, Urine Urobilinogen 0.2, Ur Leukocyte Esterase 1+ A, Urine RBC None, Urine WBC Occasional, Ur Squamous Epith Cells Occasional, Urine Bacteria 1+ Orders (Tests/Meds): ED MEDICATIONS Discontinued Medications Generic Name Dose Route Start Last Admin Trade Name Freq PRN Reason Stop Dose Admin Belladonna Alkaloids 60 ml 08/24/24 21:35 08/24/24 21:48 Belladonna Alkaloids 60 Ml Ml PO 08/24/24 21:36 60 ml ONCE ONE Administration ORDERS Category Date Time Status UA [Urinalysis and Microscopic] Stat Lab 08/24/24 16:08 Completed Urine Culture Stat Micro 08/24/24 16:08 Received Medical Decision Narrative: In summary, patient is a 73-year-old female PMHx GERD, hypertension, chronic abdominal pain, anxiety, DM, CAD, CABG who presents to the ED for complaints of chronic abdominal pain. Patient states she is having pain caused by her hernia, states it feels like her normal abdominal pain. She denies any changes in location or type of abdominal pain. She denies taking anything for pain prior to arrival. She states that she has follow-up with her surgeon next Wednesday. Denies fever, chills, headache, visual changes, nausea, vomiting, dysuria, diarrhea. Upon initial evaluation patient is alert, oriented and cooperative. She is hemodynamically stable. Her physical exam is unremarkable. Abdomen is soft and nontender. Patient given a GI cocktail which improved her symptoms. Patient is stable to be discharged home at this time. She is agreeable. I was consulted by the [place], and we discussed the complexity of the problems being addressed. I approved the treatment and management plan for this patient's care in the Emergency Department, thus performing a substantive portion of the medical decision making. Lennox Conrad MD Critical Care <Yudelka Gunter, DIGESTER OPERATOR HELPER - Last Filed: 08/24/24 21:58> Critical Care Time Critical Care Time: No
--- NOTE | 2024-08-24 22:00 | PC.NURSE ---
rounding complete; patient being discharged
[2024-08-24 22:04] VITALS: BP 128/74; PULSE 74; RESP 16; TEMP 36.6; O2SAT 98
--- NOTE | 2024-08-25 08:05 | SW/DCPLANNER ---
I have arranged [employer] transportation for outpatient GI apt on 08/29/24 at 10:30AM.
== END 2024-08-24 22:06 | disposition home or self-care (01) ==
PROVIDERS: Emergency Provider Emergency Medicine; PCP Internal Medicine
DX: R10.9 Unspecified abdominal pain (principal); R11.0 Nausea
CPT/HCPCS: 81001; 87086; 99283

== ENCOUNTER 2024-09-07 09:04 | Outpatient (CLI) | payer MEDICARE, OTHER, SELFPAY | END 2024-09-07 23:59 | disposition home or self-care (01) | LOC: LAB.DROPOF 09-08 09:05 | PROVIDERS: PCP Internal Medicine; Visit Provider Internal Medicine | DX: R30.0 Dysuria (principal) | CPT/HCPCS: 87086 ==

== ENCOUNTER 2024-09-13 08:28 | Emergency (ER) | payer MEDICARE, OTHER, SELFPAY ==
[2024-09-13] VITALS (7 sets, daily range): BP systolic 131–157; BP diastolic 68–76; PULSE 69–75; RESP 14; TEMP 36.4; O2SAT 97–99; BMI 20.5
--- NOTE | 2024-09-13 08:37 | XR_ITS ---
FINAL REPORT CLINICAL HISTORY: diffuse pain COMPARISON: 07/14/2024 FINDINGS: SINGLE VIEW CHEST The heart is normal in size. Patient is status post median sternotomy. Left-sided pacer is identified. The lungs are clear. There is no pneumothorax. IMPRESSION: No acute process. Reviewed, Interpreted and Dictated by Monisha Shi MD Transcribed by Tana Anderson Authenticated and [facility]
--- NOTE | 2024-09-13 09:01 | PC.NURSE ---
XRAY AT BS
[2024-09-13 09:02] LABS: Coronavirus 19, PCR Not Detected (NotDetected); Influenza A, PCR Not Detected (NotDetected); Influenza B, PCR Not Detected (NotDetected)
--- NOTE | 2024-09-13 09:06 | HMH.EDGENADL ---
Discharge Plan Disposition Patient Disposition: Home, Self-Care Chief Complaint: PAIN Prescriptions Prescriptions: No Action diazepam 2 mg tablet 2 mg PO TID Qty: 90 2RF sucralfate 100 mg/mL suspension 10 ml PO BID Qty: 600 2RF metoprolol succinate 50 mg tablet extended release 24 hr See Rx Instructions .ROUTE .COMPLEX Qty: 90 3RF Dose Instruction: TAKE ONE TABLET BY MOUTH ONCE A DAY FOR HIGH BLOOD PRESSURE Rx Instructions: TAKE ONE TABLET BY MOUTH ONCE A DAY FOR HIGH BLOOD PRESSURE fluticasone propionate 50 mcg/actuation spray,suspension 2 spray intranasal DAILY Qty: 16 5RF omeprazole 20 mg capsule,delayed release(DR/EC) 20 mg PO DAILY Qty: 90 1RF venlafaxine 37.5 mg tablet 37.5 mg PO BID Qty: 180 1RF famotidine 20 mg tablet See Rx Instructions .ROUTE .COMPLEX Qty: 90 3RF Dose Instruction: TAKE ONE TABLET BY MOUTH ONCE A DAY FOR GERD Rx Instructions: TAKE ONE TABLET BY MOUTH ONCE A DAY FOR GERD clopidogrel 75 mg tablet See Rx Instructions .ROUTE .COMPLEX Qty: 90 1RF Dose Instruction: TAKE ONE TABLET BY MOUTH DAY Rx Instructions: TAKE ONE TABLET BY MOUTH DAY quetiapine [Seroquel] 50 mg tablet 50 mg PO HS Qty: 90 1RF alendronate 70 mg tablet See Rx Instructions .ROUTE .COMPLEX Qty: 12 1RF Dose Instruction: TAKE ONE TABLET BY MOUTH ONCE A WEEK Rx Instructions: TAKE ONE TABLET BY MOUTH ONCE A WEEK amlodipine 5 mg tablet See Rx Instructions .ROUTE .COMPLEX Qty: 90 0RF Dose Instruction: TAKE ONE TABLET BY MOUTH ONCE A DAY Rx Instructions: TAKE ONE TABLET BY MOUTH ONCE A DAY isosorbide mononitrate 30 mg tablet extended release 24 hr 30 mg PO DAILY Qty: 90 1RF metformin 500 mg tablet 500 mg PO BID Qty: 180 1RF atorvastatin 40 mg tablet 40 mg PO DAILY Qty: 90 1RF ondansetron 4 mg tablet,disintegrating 4 mg PO Q8H PRN (Reason: nausea and vomiting) Qty: 30 0RF gabapentin 100 mg capsule See Rx Instructions .ROUTE .COMPLEX Qty: 60 0RF Dose Instruction: TAKE 2 CAPSULES (200 MG) BY MOUTH AT BEDTIME Rx Instructions: TAKE 2 CAPSULES (200 MG) BY MOUTH AT BEDTIME Probiotic 15 billion cell capsule, sprinkle 1 cap PO DAILY 30 Days Qty: 30 0RF Rx Instructions: do not crush/chew/cut; swallow whole OR may open and sprinkle in cold drink/food acetaminophen [Tylenol] 325 mg tablet 325 mg PO QID PRN (Reason: pain) Qty: 30 0RF aspirin 81 mg tablet,chewable 81 mg PO DAILY Referrals Follow up/Referrals: Hansel Ruff MD [Primary Care Provider] - See instructions Activity Restrictions/Add. Instructions Additional Instructions/Restrictions: At this time it was felt you are safe to be discharged home. If new or worsening symptoms please do not hesitate to return the emergency department. Please follow-up with your family doctor for continued evaluation as soon as you are able. Clinical Impressions Clinical Impression: Pain Print Language Print Language: Icelandic Discharge ED Provider: Kamlesh Wei General Adult HPI General Chief complaint: PAIN Stated complaint: Lung pain Time Seen by Provider: 09/13/24 08:47 Mode of Arrival: Ambulatory Source of Information: Patient Description of Symptoms (Recalled from ER Triage Doc. by RN): pt c/o lung pain. pt points to her L upper back. pt has not taken anthing this AM for the pain. pt denies injury, abd pain, chest pain or SOA. History of Present Illness HPI narrative: Patient is a 73-year-old female well-known to the emergency department presents emergency department for evaluation of left-sided lung pain . Onset was acute, over the last 48 hours. She has left-sided thoracic cage pain and posterior shoulder pain over her scapula. No trauma. No other acute complaints at this time. No anterior midline chest pain no abdominal pain, no cough. Please note that above description of symptoms, in this electronic medical record under categorization of recalled from ER triage doctor by RN are reflective of an initial nursing assessment, however, is not reflective of my full history and physical exam that was personally taken and clarified. Consequentially, this preceding description of symptoms, which may include the patient's categorized chief complaint in the EMR, do not reflect my personal clinical impression, and the ultimate description of history of present illness and patient stated complaints should be deferred to this section of the note. Unless stated otherwise or congruent with this section of the note, additional signs, symptoms, or incongruence should be interpreted as inaccurate with my clinical impression. Related Data Home Medications ?Medication ?Instructions ?Recorded ?Confirmed aspirin 81 mg chewable tablet 81 mg PO DAILY 07/21/23 09/13/24 Previous Rx's ?Medication ?Instructions ?Recorded metoprolol succinate 50 mg See Rx Instructions .Route 10/11/23 tablet,extended release 24 hr .COMPLEX #90 tabs fluticasone propionate 50 2 spray intranasal DAILY #16 grams 05/15/24 mcg/actuation nasal spray,suspension omeprazole 20 mg capsule,delayed 20 mg PO DAILY #90 caps 05/15/24 release venlafaxine 37.5 mg tablet 37.5 mg PO BID mood #180 tabs 05/15/24 alendronate 70 mg tablet See Rx Instructions .Route 06/12/24 .COMPLEX #12 tabs clopidogrel 75 mg tablet See Rx Instructions .Route 06/12/24 .COMPLEX #90 tabs famotidine 20 mg tablet See Rx Instructions .Route 06/12/24 .COMPLEX #90 tabs quetiapine 50 mg tablet (Seroquel) 50 mg PO HS #90 tabs 06/12/24 lactobacillus combo no.11 15 1 cap PO DAILY 30 days #30 caps 06/16/24 billion cell sprinkle capsule (Probiotic) acetaminophen 325 mg tablet 325 mg PO QID PRN pain #30 tabs 07/15/24 (Tylenol) amlodipine 5 mg tablet See Rx Instructions .Route 08/11/24 .COMPLEX #90 tabs atorvastatin 40 mg tablet 40 mg PO DAILY #90 tabs 08/11/24 isosorbide mononitrate 30 mg 30 mg PO DAILY #90 tabs 08/11/24 tablet,extended release 24 hr metformin 500 mg tablet 500 mg PO BID #180 tabs 08/11/24 diazepam 2 mg tablet 2 mg PO TID #90 tabs 08/14/24 ondansetron 4 mg disintegrating 4 mg PO Q8H PRN nausea and 08/21/24 tablet vomiting #30 tabs sucralfate 100 mg/mL oral 10 ml PO BID #600 mL 08/29/24 suspension gabapentin 100 mg capsule See Rx Instructions .Route 09/12/24 .COMPLEX #60 caps Allergies Allergy/AdvReac Type Severity Reaction Status Date / Time codeine (CODEINE) Allergy Unknown WEAK Verified 09/13/24 09:00 hydrochlorothiazide Allergy Unknown I-RASH Verified 09/13/24 09:00 (HYDROCHLOROTHIAZIDE) hydrocodone (HYDROCODONE) Allergy Unknown I-RASH Verified 09/13/24 09:00 metoclopramide Allergy Unknown SLURRED Verified 09/13/24 09:00 (METOCLOPRAMIDE) SPEECH, WEAK nifedipine (NIFEDIPINE) Allergy Unknown I-HIVES Verified 09/13/24 09:00 prazosin (PRAZOSIN) Allergy Unknown ITCHING/WEA Verified 09/13/24 09:00 K triamterene (TRIAMTERENE) Allergy Unknown I-RASH Verified 09/13/24 09:00 PFSH [facility] Disclaimer: The information contained in this section may have been updated after the patient was seen, as this information can be updated by other users. 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 Family History Other Family history of cancer Family history of diabetes mellitus type II Family history of hypertension Family history of myocardial infarction Social History Smoking Status: Never smoker second hand exposure: Yes alcohol intake: never substance use type: denies use current occupational status: retired Travel in the last 8 weeks: None household members: none housing: apartment lives independently: Yes marital status: single education level: middle school service: No skilled nursing: No current occupational exposures/hazards: No caffeine: Yes do you feel safe at home: Yes victim of physical abuse: No victim of emotional abuse: No victim of sexual abuse: No would you like helpful sources: No Have you lived/traveled outside [place] in past 30 days?: No Contact w/someone who lives/traveled outside [place] past 30 days?: No Exposure to someone with infectious disease in past 14 days?: No Do you have a fever (greater than 100.4 F or 38 C)?: No Have you tested positive for COVID-19: No Exposed to someone with COVID-19 in past 14 days?: No Do you have a sore throat?: No Do you have a cough?: No Do you have any weakness?: No Do you have any diarrhea?: No Are you experiencing any unusual bleeding?: No Do you have any muscle aches/pain?: No Do you have any abdominal pain?: No Are you experiencing loss of taste or smell?: No Other Medical History Have you received the Flu Vaccine for this season: No Have you received the Pneumonia Vaccine: Yes ROS Obtained: Yes Systems reviewed as appropriate & no additional complaints except as documented Physical Exam General General appearance: alert and in no apparent distress Head Head exam: atraumatic and normocephalic Eye Eye exam: Present PERRL ENT ENT exam: Present mucous membranes moist Neck Neck exam: Present normal inspection Chest Chest inspection: Present normal inspection and symmetric chest wall rise Respiratory Respiratory exam: Present normal lung sounds bilaterally; Absent respiratory distress Cardiovascular Cardiovascular exam: Present regular rate and normal rhythm Abdominal Exam Abdominal exam: Present soft; Absent tenderness Extremities Exam Extremities exam: Present normal inspection and full ROM; Absent tenderness Back Exam Back exam: Present normal inspection; Absent tenderness Neurological Exam Neurological exam: Present alert and oriented X3 Psychiatric Psychiatric exam: Present normal affect Skin Skin exam: Present warm and dry Medical Decision Making Medical Records Screening: Per USPSTF and CDC recommendations, given the prevalence of disease in our region, it is our hospital?s policy to screen for HIV and viral Hepatitis for all patients aged 18 and over and those with ongoing risk factors. Chet Inquiry Pt receiving controlled substance: No Vital Signs: 09/13/24 08:38 09/13/24 08:43 09/13/24 08:45 Temperature 97.6 F Temperature Source Oral Pulse Rate 75 71 Pulse Rate [Left] 73 Respiratory Rate 14 Blood Pressure 157/76 H 143/70 H Blood Pressure [Right Arm] 157/76 H Blood Pressure Mean [Right Arm] 103 Blood Pressure Source [Right Arm] Automatic Cuff Blood Pressure Position [Right Arm] Sitting 02 Sat by Pulse Oximetry 99 99 98 Oxygen Delivery Method Room Air Room Air Room Air 09/13/24 09:31 09/13/24 09:45 Temperature Temperature Source Pulse Rate 70 69 Pulse Rate [Left] Respiratory Rate Blood Pressure 134/72 131/68 Blood Pressure [Right Arm] Blood Pressure Mean [Right Arm] Blood Pressure Source [Right Arm] Blood Pressure Position [Right Arm] 02 Sat by Pulse Oximetry 98 97 Oxygen Delivery Method Room Air Room Air Lab Data Lab Results 09/13/24 08:58: SARS-CoV-2 (PCR) Not detected, Influenza A Untype (PCR) Not detected, Influenza Type B (PCR) Not detected 09/13/24 09:23: WBC 3.8 L, RBC 3.42 L, Hgb 10.8 L, Hct 33.0 L, MCV 96.5, MCH 31.6 H, MCHC 32.7, RDW 14.0, Plt Count 201, MPV 10.3, Neut % (Auto) 69.5, Lymph % (Auto) 18.4, Pepin % (Auto) 9.5 H, Eos % (Auto) 0.5, Baso % (Auto) 0.8, Neut # (Auto) 2.6, Lymph # (Auto) 0.7, Pepin # (Auto) 0.4, Eos # (Auto) 0.0, Baso # (Auto) 0.0, D-Dimer 0.38, Sodium 140, Potassium 4.5, Chloride 104, Carbon Dioxide 28, Anion Gap 12.5, BUN 22 H, Creatinine 0.70, Estimated Creat Clear 42, Estimated GFR 82, Est GFR ( Amer) 99, Glucose 114 H, Calcium 9.8, Total Bilirubin 0.2, AST 25, ALT 24, Alkaline Phosphatase 62, Troponin I < 0.01, Total Protein 6.7, Albumin 4.8, Globulin 1.9, Albumin/Globulin Ratio 2.5 H 09/13/24 09:23 09/13/24 09:23 Orders (Tests/Meds): ED MEDICATIONS Discontinued Medications Generic Name Dose Route Start Last Admin Trade Name Freq PRN Reason Stop Dose Admin Acetaminophen 1,000 mg 09/13/24 08:48 09/13/24 09:09 Acetaminophen 500mg Tab PO 09/13/24 08:49 1,000 mg ONCE ONE Administration Ketorolac Tromethamine 30 mg 09/13/24 08:48 09/13/24 09:09 Ketorolac 30mg/Ml Vial IV 09/13/24 08:49 30 mg ONCE ONE Administration ORDERS Category Date Time Status CXR --portable [XR chest portable] Stat Exams 09/13/24 08:37 Completed CBC w/Auto Diff [Complete Blood Count Auto Diff] Stat Lab 09/13/24 09:23 Completed CMP [Comprehensive Metabolic Panel] Stat Lab 09/13/24 09:23 Completed D-Dimer Stat Lab 09/13/24 09:23 Completed Rapid PCR Covid and Flu A/B Stat Lab 09/13/24 08:58 Completed Trop I [Troponin I] Stat Lab 09/13/24 09:23 Completed Troponin I Q3H Lab 09/13/24 11:45 Ordered Troponin I Q3H Lab 09/13/24 14:45 Ordered EKG Request [ECG Request] Stat Y 09/13/24 09:13 Ordered Medical Decision Narrative: In summary patient is a 73-year-old female with past medical history described above who presents emergency department for evaluation of lung pain and left posterior scapular pain. Patient is hemodynamically stable nontoxic-appearing upon arrival, afebrile. No overlying skin findings to suggest VCV. Patient is clear to auscultation all lung mahmood. She has no anterior chest pain. Differential includes musculoskeletal pain, malingering, atypical ACS, aortic dissection, among others. Workup will be conducted with hematologic labs, chest x-ray, EKG, troponin, D-dimer, viral swab. Initial inventions include Toradol and Tylenol. Initial workup reviewed by me, hematologic labs are nonactionable no significant leukocytosis, no critical leukopenia, stable anemia. D-dimer excludes pulmonary embolism and low risk aortic dissection, no MAX or critical electrolyte abnormality. Initial troponin undetectably low. Chest x-ray informally interpreted by me no acute lobar opacities or large pneumothorax, pacer in place. Formal read no acute process. Upon repeat evaluation patient was resting comfortably in bed and it was felt the patient is appropriate for outpatient management at this time. Critical Care Critical Care Time Critical Care Time: No
[2024-09-13] MEDS: KETOROLAC 30MG/ML VIAL 30 MG IV (09:09)
[2024-09-13] MEDS: ACETAMINOPHEN 500MG TAB 1000 MG PO (09:09)
--- NOTE | 2024-09-13 09:27 | ECG_ITS ---
APPROVED REPORT Exam: Resting ECG HR:68 bpm ECG Measurements Heart Rate 68 AXES UT 160 P 32 QRSd 164 QRS -52 QT 438 T 106 QTc 456 Conclusion ELECTRONIC VENTRICULAR PACEMAKER ABNORMAL RHYTHM ECG UNCONFIRMED REPORT Electronically signed by : LETTY LLANES, 09/14/2024 06:56:42
[2024-09-13 09:30] LABS: Basophils % 0.8 % (0.1-2.0); Eosinophils % 0.5 % (0.1-12.0); Hemoglobin 10.8 g/dL (12.2-16.2); Lymphocytes # 0.7 K/mm3 (0.7-4.5); Lymphocytes % 18.4 % (10-50); Mean Corpuscular HGB Conc 32.7 g/dL (31.8-35.4); Mean Corpuscular Hemoglobin 31.6 pg (27.0-31.2); Mean Corpuscular Volume 96.5 fl (81-99); Mean Platelet Volume 10.3 fl (7.4-10.4); Monocytes # 0.4 K/mm3 (0.1-1.0); Monocytes % 9.5 % (1.7-9.3); Neutrophils # 2.6 K/mm3 (1.8-7.8); Neutrophils % 69.5 % (37.0-80.0); Platelet Count 201 K/mm3 (142-424); Red Blood Count 3.42 M/mm3 (4.20-5.40); White Blood Count 3.8 K/mm3 (4.8-10.8)
[2024-09-13 09:47] LABS: Alanine Aminotransferase 24 U/L (12-78); Albumin Level 4.8 g/dl (3.5-5.0); Albumin/Globulin Ratio 2.5 (1.1-1.8); Alkaline Phosphatase 62 U/L (38-126); Anion Gap 12.5 mEq/L (5-15); Aspartate Amino Transferase 25 U/L (14-36); Bilirubin,Total 0.2 mg/dl (0.2-1.3); Blood Urea Nitrogen 22 mg/dl (7-17); Calcium 9.8 mg/dl (8.4-10.2); Carbon Dioxide 28 mmol/L (22.0-30.0); Chloride 104 mmol/L (98-107); Creatinine Clearance Estimated 42 mL/min (50-200); Estimated Glomerular Filt Rate 82 ml/min (>60); GFR (African American) 99 ML/MIN (>60); Globulin 1.9 g/dL (1.3-3.2); Glucose 114 mg/dl (74-100); Potassium 4.5 mmoL/L (3.5-5.1); Sodium 140 mmol/L (136-145); Total Protein,Serum 6.7 g/dl (6.3-8.2)
[2024-09-13 09:52] LABS: D-Dimer 0.38 ug/mL (0.0-0.5)
[2024-09-13 10:00] LABS: Troponin I < 0.01 ng/ml (0.00-0.034)
== END 2024-09-13 10:19 | disposition home or self-care (01) ==
PROVIDERS: Emergency Provider Emergency Medicine; PCP Internal Medicine
DX: R07.89 Other chest pain (principal); M25.512 Pain in left shoulder
CPT/HCPCS: 71045; 80053; 84484; 85025; 85378; 87636; 93005; 96374; 99284; J1885

== ENCOUNTER 2024-09-15 16:13 | Emergency (ER) | payer MEDICARE, OTHER, SELFPAY ==
[2024-09-15 16:40] VITALS: BP 163/62; PULSE 72; RESP 17; TEMP 36.8; O2SAT 98; BMI 23.8
--- NOTE | 2024-09-15 17:59 | XR_ITS ---
PROCEDURE INFORMATION: Exam: XR Chest Exam date and time: 09/15/2024 6:04 PM Age: 73 years old Clinical indication: Pain; Other: Cp to axillae TECHNIQUE: Imaging protocol: Radiologic exam of the chest. Views: 2 views. COMPARISON: CR XR CHEST PORTABLE 09/13/2024 9:00 AM FINDINGS: Tubes, catheters and devices: Cardiac pacemaker. Sternal wires present. Lungs: Unremarkable. No consolidation. Pleural spaces: Unremarkable. No pleural effusion. No pneumothorax. Heart/Mediastinum: Prosthetic cardiac valve. Bones/joints: Unremarkable. IMPRESSION: No acute disease.
--- NOTE | 2024-09-15 18:11 | ED_ITS ---
Discharge Plan Disposition Patient Disposition: Home, Self-Care Prescriptions Prescriptions: New furosemide 20 mg tablet 20 mg PO DAILY Qty: 30 2RF No Action diazepam 2 mg tablet 2 mg PO TID Qty: 90 2RF sucralfate 100 mg/mL suspension 10 ml PO BID Qty: 600 2RF metoprolol succinate 50 mg tablet extended release 24 hr See Rx Instructions .ROUTE .COMPLEX Qty: 90 3RF Dose Instruction: TAKE ONE TABLET BY MOUTH ONCE A DAY FOR HIGH BLOOD PRESSURE Rx Instructions: TAKE ONE TABLET BY MOUTH ONCE A DAY FOR HIGH BLOOD PRESSURE fluticasone propionate 50 mcg/actuation spray,suspension 2 spray intranasal DAILY Qty: 16 5RF omeprazole 20 mg capsule,delayed release(DR/EC) 20 mg PO DAILY Qty: 90 1RF venlafaxine 37.5 mg tablet 37.5 mg PO BID Qty: 180 1RF famotidine 20 mg tablet See Rx Instructions .ROUTE .COMPLEX Qty: 90 3RF Dose Instruction: TAKE ONE TABLET BY MOUTH ONCE A DAY FOR GERD Rx Instructions: TAKE ONE TABLET BY MOUTH ONCE A DAY FOR GERD clopidogrel 75 mg tablet See Rx Instructions .ROUTE .COMPLEX Qty: 90 1RF Dose Instruction: TAKE ONE TABLET BY MOUTH DAY Rx Instructions: TAKE ONE TABLET BY MOUTH DAY quetiapine [Seroquel] 50 mg tablet 50 mg PO HS Qty: 90 1RF alendronate 70 mg tablet See Rx Instructions .ROUTE .COMPLEX Qty: 12 1RF Dose Instruction: TAKE ONE TABLET BY MOUTH ONCE A WEEK Rx Instructions: TAKE ONE TABLET BY MOUTH ONCE A WEEK amlodipine 5 mg tablet See Rx Instructions .ROUTE .COMPLEX Qty: 90 0RF Dose Instruction: TAKE ONE TABLET BY MOUTH ONCE A DAY Rx Instructions: TAKE ONE TABLET BY MOUTH ONCE A DAY isosorbide mononitrate 30 mg tablet extended release 24 hr 30 mg PO DAILY Qty: 90 1RF metformin 500 mg tablet 500 mg PO BID Qty: 180 1RF atorvastatin 40 mg tablet 40 mg PO DAILY Qty: 90 1RF ondansetron 4 mg tablet,disintegrating 4 mg PO Q8H PRN (Reason: nausea and vomiting) Qty: 30 0RF gabapentin 100 mg capsule See Rx Instructions .ROUTE .COMPLEX Qty: 60 0RF Dose Instruction: TAKE 2 CAPSULES (200 MG) BY MOUTH AT BEDTIME Rx Instructions: TAKE 2 CAPSULES (200 MG) BY MOUTH AT BEDTIME Probiotic 15 billion cell capsule, sprinkle 1 cap PO DAILY 30 Days Qty: 30 0RF Rx Instructions: do not crush/chew/cut; swallow whole OR may open and sprinkle in cold drink/food acetaminophen [Tylenol] 325 mg tablet 325 mg PO QID PRN (Reason: pain) Qty: 30 0RF aspirin 81 mg tablet,chewable 81 mg PO DAILY Referrals Follow up/Referrals: Hansel Ruff MD [Primary Care Provider] - See instructions Activity Restrictions/Add. Instructions Additional Instructions/Restrictions: Call your family doctor to establish care for this visit to the emergency department and schedule follow-up within 48 hours to ensure improvement. If you have any worsening of your condition or any other concerning signs or symptoms, return to the emergency department or your primary care doctor for further evaluation. 20 mg of Lasix each morning until following up with your family doctor and cardiology to reevaluate labs with kidney function and BNP. Clinical Impressions Clinical Impression: Chest pain, Elevated brain natriuretic peptide (BNP) level Print Language Print Language: Kyr[place]z Discharge ED Provider: Lennox Conrad General Adult HPI General Chief complaint: PAIN Stated complaint: chest discomfort, pain in armpits Time Seen by Provider: 09/15/24 17:43 Mode of Arrival: Wheelchair Source of Information: Patient Description of Symptoms (Recalled from ER Triage Doc. by RN): pt to the ED with complaints of pain under both of her arm pits and acid relfux that hasnt been resolved after taking her daily medication for it.. pt denies any recent fall or injury. pt denies any chest pain at this time and reports a burning sensation a few hours ago. pt denies any SOB, cough or fever History of Present Illness HPI narrative: Please note that above description of symptoms, in this electronic medical record under categorization of recalled from ER triage doctor by RN are reflective of an initial nursing assessment, however, is not reflective of my full history and physical exam that was personally taken and clarified. Consequentially, this preceding description of symptoms, which may include the patient's categorized chief complaint in the EMR, do not reflect my personal clinical impression, and the ultimate description of history of present illness and patient stated complaints should be deferred to this section of the note. Unless stated otherwise or congruent with this section of the note, additional signs, symptoms, or incongruence should be interpreted as inaccurate with my clinical impression. Related Data Home Medications ?Medication ?Instructions ?Recorded ?Confirmed aspirin 81 mg chewable tablet 81 mg PO DAILY 07/21/23 09/13/24 Previous Rx's ?Medication ?Instructions ?Recorded metoprolol succinate 50 mg See Rx Instructions .Route 10/11/23 tablet,extended release 24 hr .COMPLEX #90 tabs fluticasone propionate 50 2 spray intranasal DAILY #16 grams 05/15/24 mcg/actuation nasal spray,suspension omeprazole 20 mg capsule,delayed 20 mg PO DAILY #90 caps 05/15/24 release venlafaxine 37.5 mg tablet 37.5 mg PO BID mood #180 tabs 05/15/24 alendronate 70 mg tablet See Rx Instructions .Route 06/12/24 .COMPLEX #12 tabs clopidogrel 75 mg tablet See Rx Instructions .Route 06/12/24 .COMPLEX #90 tabs famotidine 20 mg tablet See Rx Instructions .Route 06/12/24 .COMPLEX #90 tabs quetiapine 50 mg tablet (Seroquel) 50 mg PO HS #90 tabs 06/12/24 lactobacillus combo no.11 15 1 cap PO DAILY 30 days #30 caps 06/16/24 billion cell sprinkle capsule (Probiotic) acetaminophen 325 mg tablet 325 mg PO QID PRN pain #30 tabs 07/15/24 (Tylenol) amlodipine 5 mg tablet See Rx Instructions .Route 08/11/24 .COMPLEX #90 tabs atorvastatin 40 mg tablet 40 mg PO DAILY #90 tabs 08/11/24 isosorbide mononitrate 30 mg 30 mg PO DAILY #90 tabs 08/11/24 tablet,extended release 24 hr metformin 500 mg tablet 500 mg PO BID #180 tabs 08/11/24 diazepam 2 mg tablet 2 mg PO TID #90 tabs 08/14/24 ondansetron 4 mg disintegrating 4 mg PO Q8H PRN nausea and 08/21/24 tablet vomiting #30 tabs sucralfate 100 mg/mL oral 10 ml PO BID #600 mL 08/29/24 suspension gabapentin 100 mg capsule See Rx Instructions .Route 09/12/24 .COMPLEX #60 caps furosemide 20 mg tablet 20 mg PO DAILY #30 tabs 09/15/24 Allergies Allergy/AdvReac Type Severity Reaction Status Date / Time codeine (CODEINE) Allergy Unknown WEAK Verified 09/13/24 09:00 hydrochlorothiazide Allergy Unknown I-RASH Verified 09/13/24 09:00 (HYDROCHLOROTHIAZIDE) hydrocodone (HYDROCODONE) Allergy Unknown I-RASH Verified 09/13/24 09:00 metoclopramide Allergy Unknown SLURRED Verified 09/13/24 09:00 (METOCLOPRAMIDE) SPEECH, WEAK nifedipine (NIFEDIPINE) Allergy Unknown I-HIVES Verified 09/13/24 09:00 prazosin (PRAZOSIN) Allergy Unknown ITCHING/WEA Verified 09/13/24 09:00 K triamterene (TRIAMTERENE) Allergy Unknown I-RASH Verified 09/13/24 09:00 PFSH [facility] Disclaimer: The information contained in this section may have been updated after the patient was seen, as this information can be updated by other users. 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 Family History Other Family history of cancer Family history of diabetes mellitus type II Family history of hypertension Family history of myocardial infarction Social History Smoking Status: Never smoker second hand exposure: Yes alcohol intake: never substance use type: denies use current occupational status: retired Travel in the last 8 weeks: None household members: none housing: apartment lives independently: Yes marital status: single education level: middle school service: No group home: No current occupational exposures/hazards: No caffeine: Yes do you feel safe at home: Yes victim of physical abuse: No victim of emotional abuse: No victim of sexual abuse: No would you like helpful sources: No Have you lived/traveled outside [place] in past 30 days?: No Contact w/someone who lives/traveled outside [place] past 30 days?: No Exposure to someone with infectious disease in past 14 days?: No Do you have a fever (greater than 100.4 F or 38 C)?: No Have you tested positive for COVID-19: No Exposed to someone with COVID-19 in past 14 days?: No Do you have a sore throat?: No Do you have a cough?: No Do you have any weakness?: No Do you have any diarrhea?: No Are you experiencing any unusual bleeding?: No Do you have any muscle aches/pain?: No Do you have any abdominal pain?: No Are you experiencing loss of taste or smell?: No Other Medical History Have you received the Flu Vaccine for this season: No Have you received the Pneumonia Vaccine: Yes ROS Obtained: Yes All systems reviewed & no additional complaints except as documented Physical Exam General General appearance: alert and anxious (Tearful) Head Head exam: atraumatic and normocephalic Eye Eye exam: Present normal appearance, PERRL and EOMI Neck Neck exam: Present normal inspection, full ROM and trachea midline Respiratory Respiratory exam: Present normal lung sounds bilaterally; Absent respiratory distress, wheezes, stridor, accessory muscle use or prolonged expiratory phase Cardiovascular Cardiovascular exam: Present regular rate, normal rhythm and other (Pulses equal symmetric in upper and lower extremities) Abdominal Exam Abdominal exam: Present soft; Absent distention, tenderness or pulsatile mass Extremities Exam Extremities exam: Absent edema Neurological Exam Neurological exam: Present alert, oriented X3 and CN II-XII intact; Absent motor sensory deficit Skin Skin exam: Present warm and dry; Absent diaphoresis or erythema Medical Decision Making Medical Records Medical records reviewed: Yes I reviewed the patient's medical records. Screening: Per USPSTF and CDC recommendations, given the prevalence of disease in our region, it is our hospital?s policy to screen for HIV and viral Hepatitis for all patients aged 18 and over and those with ongoing risk factors. Chet Inquiry Pt receiving controlled substance: No Chet was queried for this patient: No Vital Signs: 09/15/24 16:40 Temperature 98.3 F Temperature Source Oral Pulse Rate [Left Radial] 72 Respiratory Rate 17 Blood Pressure [Right Arm] 163/62 H Blood Pressure Mean [Right Arm] 95 Blood Pressure Source [Right Arm] Automatic Cuff Blood Pressure Position [Right Arm] Sitting 02 Sat by Pulse Oximetry 98 Oxygen Delivery Method Room Air Lab Data Lab Results 09/15/24 19:10: WBC 6.1 D, RBC 3.41 L, Hgb 10.8 L, Hct 32.3 L, MCV 94.7, MCH 31.7 H, MCHC 33.4, RDW 13.8, Plt Count 142 D, MPV 10.9 H, Neut % (Auto) 71.6, Lymph % (Auto) 19.0, [place] % (Auto) 8.1, Eos % (Auto) 0.3, Baso % (Auto) 0.5, Neut # (Auto) 4.3, Lymph # (Auto) 1.2, [place] # (Auto) 0.5, Eos # (Auto) 0.0, Baso # (Auto) 0.0, PT 12.0, INR 1.08, APTT 17.0 L, Sodium 138, Potassium 4.4, Chloride 104, Carbon Dioxide 26, Anion Gap 12.4, BUN 19 H, Creatinine 0.60, Estimated Creat Clear 42, Estimated GFR 97, Est GFR ( Amer) 118, Glucose 147 H, Calcium 9.7, Magnesium 1.9, Total Bilirubin 0.4, AST 30, ALT 26, Alkaline Phosphatase 63, Troponin I < 0.01, NT-Pro-B Natriuret Pep 1490 H, Total Protein 7.1, Albumin 5.2 H, Globulin 1.9, Albumin/Globulin Ratio 2.7 H, Lipase 38 09/15/24 19:10 09/15/24 19:10 Orders (Tests/Meds): ORDERS Category Date Time Status CXR 2 view (NOT portable) [XR chest 2V] Stat Exams 09/15/24 17:59 Completed Complete Blood Count Auto Diff Stat Lab 09/15/24 19:10 Completed Comprehensive Metabolic Panel Stat Lab 09/15/24 19:10 Completed Lipase Stat Lab 09/15/24 19:10 Completed Magnesium Stat Lab 09/15/24 19:10 Completed NT Pro Brain Natriuretic Pep. Stat Lab 09/15/24 19:10 Completed PT INR [Prothrombin Time INR] Stat Lab 09/15/24 19:10 Completed PTT [Activated Partial Thrombo Time] Stat Lab 09/15/24 19:10 Completed Troponin I Q3H Lab 09/15/24 21:00 Ordered Troponin I Q3H Lab 09/16/24 00:00 Ordered Troponin I Stat Lab 09/15/24 19:10 Completed HEART Score History (anamnesis): Slightly suspicious ECG: Normal Age: >65 years Risk factors: 3 or more risk factors Troponin: </= normal limit HEART Score: 4 Medical Decision Narrative: This is a 73-year-old female history of hypertension, hyperlipidemia, type 2 diabetes, esophagitis and hiatal hernia, illness anxiety disorder, CAD status post CABG, aortic valve replacement presenting with chest pain. Patient states that chest pain started earlier this morning, 09/15. She was sitting in her breakfast table. Started having chest pain that was substernal, did not radiate. Also started having bilateral axilla pain a couple of hours later. Does not seem that they are related, in her opinion. No shortness of breath, syncope, diaphoresis, nausea, vomiting, or any other concerns. Came in for further evaluation. History was obtained via conversation with patient. On arrival, patient hemodynamically stable, alert, oriented x4, appropriate, GCS 15, moving all extremities spontaneously, pupils equal and reactive to light. Full physical exam performed and significant for tearful appearing female who is in no acute distress. Lungs are clear, cardiac exam without murmurs gallops or rubs. No lower extremity edema. Pulses equal and symmetric in upper and lower extremities. Neurovascularly intact. Differential includes illness anxiety disorder, GERD, gastritis, microvascular coronary artery disease, CHF, ACS, SC, coronary artery dissection, pneumothorax, PE, dissection, pericarditis, myocarditis, pneumothorax, aortic aneurysm, pneumonia, bronchitis, among others. Patient placed on continuous cardiac monitoring and continuous pulse ox with initial blood pressure 163/62, heart rate to, saturation 98% on room air. Independent interpretation of EKG shows ventricular paced rhythm 68 bpm with QRS of 173, QTc 462. Leftward axis. Sgarbossa negative. No acute ischemic change. Patient given Tylenol for chronic low back pain. Workup independently interpreted and significant for nonactionable CBC or chemistry, but patient's BNP is elevated. On independent interpretation of imaging, no pulmonary edema or pleural effusions. See radiology read for full review of final results. Heart score 4. On reevaluation, patient resting comfortably. Results were relayed to her, patient tearful, as expected, but agreeable to outpatient plan. She states that she sees cardiology on the first and will follow-up with them regarding her BNP. Close return precautions discussed. ] Given patient presentation, workup, history, this most likely represents mild CHF exacerbation without hypoxemia or fluid overload. Given 0.5 mg IM Bumex. Lasix sent to pharmacy. Because patient at baseline without signs or symptoms of clinical decompensation, deemed appropriate for discharge. Results were relayed to patient who voiced understanding and were agreeable to outpatient management and follow up. I discussed my clinical impression with patient and answered all questions. At this time, the evidence for any other entities in the differential is insufficient to warrant any further testing or ED observation. This was explained as well. Advisory was given that persistent or worsening symptoms require further evaluation. I confirmed the understanding of this discussion. Refund Specialist disclaimer Much of this encounter note is an electronic package reinspector spoken language to printed text. Electronic package reinspector of the spoken language may permit errors. Although I have reviewed the note, some errors may still exist. Critical Care Critical Care Time Critical Care Time: No
--- NOTE | 2024-09-15 18:13 | PC.NURSE ---
pt to rad
--- NOTE | 2024-09-15 18:32 | ECG_ITS ---
APPROVED REPORT Exam: Resting ECG HR:68 bpm ECG Measurements Heart Rate 68 AXES MA 158 P 45 QRSd 173 QRS -59 QT 445 T 99 QTc 462 Conclusion V-paced rhythm No acute ischemic change Electronically signed by : LUCIE LAKHANI, 09/16/2024 00:03:49
--- NOTE | 2024-09-15 19:24 | PC.NURSE ---
Labs drawn and sent to lab
[2024-09-15 19:32] LABS: Basophils % 0.5 % (0.1-2.0); Eosinophils % 0.3 % (0.1-12.0); Hematocrit 32.3 % (37.0-47.0); Hemoglobin 10.8 g/dL (12.2-16.2); Lymphocytes # 1.2 K/mm3 (0.7-4.5); Mean Corpuscular HGB Conc 33.4 g/dL (31.8-35.4); Mean Corpuscular Hemoglobin 31.7 pg (27.0-31.2); Mean Corpuscular Volume 94.7 fl (81-99); Mean Platelet Volume 10.9 fl (7.4-10.4); Monocytes # 0.5 K/mm3 (0.1-1.0); Monocytes % 8.1 % (1.7-9.3); Neutrophils # 4.3 K/mm3 (1.8-7.8); Neutrophils % 71.6 % (37.0-80.0); Platelet Count 142 K/mm3 (142-424); Red Blood Count 3.41 M/mm3 (4.20-5.40); Red Cell Distribution Width 13.8 % (11.5-17.5); White Blood Count 6.1 K/mm3 (4.8-10.8)
--- NOTE | 2024-09-15 19:35 | PC.NURSE ---
Report received vi Lucas RN Pt awake alert and oriented Skin pale warm and dry Resp full and easy Speech clear and appropriate. Unable to establish IV but blood work sent
[2024-09-15 19:37] LABS: Alanine Aminotransferase 26 U/L (12-78); Albumin Level 5.2 g/dl (3.5-5.0); Albumin/Globulin Ratio 2.7 (1.1-1.8); Alkaline Phosphatase 63 U/L (38-126); Anion Gap 12.4 mEq/L (5-15); Aspartate Amino Transferase 30 U/L (14-36); Bilirubin,Total 0.4 mg/dl (0.2-1.3); Blood Urea Nitrogen 19 mg/dl (7-17); Calcium 9.7 mg/dl (8.4-10.2); Carbon Dioxide 26 mmol/L (22.0-30.0); Chloride 104 mmol/L (98-107); Creatinine Clearance Estimated 42 mL/min (50-200); Estimated Glomerular Filt Rate 97 ml/min (>60); GFR (African American) 118 ML/MIN (>60); Globulin 1.9 g/dL (1.3-3.2); Glucose 147 mg/dl (74-100); Lipase 38 U/L (23-300); Magnesium 1.9 mg/dl (1.6-2.3); Potassium 4.4 mmoL/L (3.5-5.1); Sodium 138 mmol/L (136-145); Total Protein,Serum 7.1 g/dl (6.3-8.2)
[2024-09-15 19:39] LABS: INR 1.08 (0.9-1.1)
[2024-09-15 19:46] LABS: NT Pro Brain Natriuretic Pep. 1490 pg/mL (0-450)
[2024-09-15 19:51] LABS: Troponin I < 0.01 ng/ml (0.00-0.034)
[2024-09-15] MEDS: ACETAMINOPHEN 500MG TAB 1000 MG PO (20:29)
[2024-09-15] MEDS: BUMETANIDE 1MG/4ML VIAL 0.5 MG IM (20:30)
[2024-09-15 20:33] VITALS: BP 160/60; PULSE 70; RESP 20; TEMP 36.8; O2SAT 98
== END 2024-09-15 20:35 | disposition home or self-care (01) ==
PROVIDERS: Emergency Provider Emergency Medicine; PCP Internal Medicine
DX: R07.9 Chest pain, unspecified (principal)
CPT/HCPCS: 71046; 80053; 83690; 83735; 83880; 84484; 85025; 85610; 85730; 93005; 99284; J1939

== ENCOUNTER 2024-09-21 14:05 | Outpatient (CLI) | payer MEDICARE, OTHER, SELFPAY ==
[2024-09-21 19:28] LABS: Chloride 99 mmol/L (98-107); Potassium 4.9 mmoL/L (3.5-5.1); Sodium 137 mmol/L (136-145)
[2024-09-21 19:31] LABS: Anion Gap 13.9 mEq/L (5-15); Blood Urea Nitrogen 20 mg/dl (7-17); Carbon Dioxide 29 mmol/L (22.0-30.0); Estimated Glomerular Filt Rate 70 ml/min (>60); GFR (African American) 85 ML/MIN (>60); Glucose 153 mg/dl (74-100)
== END 2024-09-21 23:59 | disposition home or self-care (01) ==
LOC: LAB.DROPOF 09-22 10:19
PROVIDERS: PCP Internal Medicine; Visit Provider Internal Medicine
DX: R79.89 Other specified abnormal findings of blood chemistry (principal)
CPT/HCPCS: 80048

== ENCOUNTER 2024-09-23 12:05 | Emergency (ER) | payer MEDICARE, OTHER, SELFPAY ==
--- NOTE | 2024-09-23 12:11 | ECG_ITS ---
APPROVED REPORT Exam: Resting ECG HR:73 bpm ECG Measurements Heart Rate 73 AXES OK 157 P 72 QRSd 165 QRS -70 QT 430 T 99 QTc 456 Conclusion ELECTRONIC VENTRICULAR PACEMAKER No STEMI per [place] criteria Electronically signed by : PATRIA GUZMÁN, 09/23/2024 15:49:02
[2024-09-23 12:13] VITALS: BP 154/74; PULSE 76; RESP 15; TEMP 36.6; O2SAT 99; BMI 25.2
--- NOTE | 2024-09-23 12:20 | ED_ITS ---
<Statement entered by Glenys Hassan DO - 09/23/24 15:40> I was consulted by the [place], and we discussed the complexity of the problems being addressed. I approved the treatment and management plan for this patient's care in the emergency department, thus performing a substantive portion of the medical decision making. Glenys Hassan DO Discharge Plan Disposition Patient Disposition: Home, Self-Care Condition: Good Prescriptions Prescriptions: No Action diazepam 2 mg tablet 2 mg PO TID Qty: 90 2RF sucralfate 100 mg/mL suspension 10 ml PO BID Qty: 600 2RF metoprolol succinate 50 mg tablet extended release 24 hr See Rx Instructions .ROUTE .COMPLEX Qty: 90 3RF Dose Instruction: TAKE ONE TABLET BY MOUTH ONCE A DAY FOR HIGH BLOOD PRESSURE Rx Instructions: TAKE ONE TABLET BY MOUTH ONCE A DAY FOR HIGH BLOOD PRESSURE fluticasone propionate 50 mcg/actuation spray,suspension 2 spray intranasal DAILY Qty: 16 5RF omeprazole 20 mg capsule,delayed release(DR/EC) 20 mg PO DAILY Qty: 90 1RF venlafaxine 37.5 mg tablet 37.5 mg PO BID Qty: 180 1RF famotidine 20 mg tablet See Rx Instructions .ROUTE .COMPLEX Qty: 90 3RF Dose Instruction: TAKE ONE TABLET BY MOUTH ONCE A DAY FOR GERD Rx Instructions: TAKE ONE TABLET BY MOUTH ONCE A DAY FOR GERD clopidogrel 75 mg tablet See Rx Instructions .ROUTE .COMPLEX Qty: 90 1RF Dose Instruction: TAKE ONE TABLET BY MOUTH DAY Rx Instructions: TAKE ONE TABLET BY MOUTH DAY quetiapine [Seroquel] 50 mg tablet 50 mg PO HS Qty: 90 1RF alendronate 70 mg tablet See Rx Instructions .ROUTE .COMPLEX Qty: 12 1RF Dose Instruction: TAKE ONE TABLET BY MOUTH ONCE A WEEK Rx Instructions: TAKE ONE TABLET BY MOUTH ONCE A WEEK amlodipine 5 mg tablet See Rx Instructions .ROUTE .COMPLEX Qty: 90 0RF Dose Instruction: TAKE ONE TABLET BY MOUTH ONCE A DAY Rx Instructions: TAKE ONE TABLET BY MOUTH ONCE A DAY isosorbide mononitrate 30 mg tablet extended release 24 hr 30 mg PO DAILY Qty: 90 1RF metformin 500 mg tablet 500 mg PO BID Qty: 180 1RF atorvastatin 40 mg tablet 40 mg PO DAILY Qty: 90 1RF ondansetron 4 mg tablet,disintegrating 4 mg PO Q8H PRN (Reason: nausea and vomiting) Qty: 30 0RF gabapentin 100 mg capsule See Rx Instructions .ROUTE .COMPLEX Qty: 60 0RF Dose Instruction: TAKE 2 CAPSULES (200 MG) BY MOUTH AT BEDTIME Rx Instructions: TAKE 2 CAPSULES (200 MG) BY MOUTH AT BEDTIME Probiotic 15 billion cell capsule, sprinkle 1 cap PO DAILY 30 Days Qty: 30 0RF Rx Instructions: do not crush/chew/cut; swallow whole OR may open and sprinkle in cold drink/food acetaminophen [Tylenol] 325 mg tablet 325 mg PO QID PRN (Reason: pain) Qty: 30 0RF furosemide 20 mg tablet 20 mg PO DAILY Qty: 30 2RF aspirin 81 mg tablet,chewable 81 mg PO DAILY Referrals Follow up/Referrals: Hansel Ruff MD [Primary Care Provider] - See instructions Activity Restrictions/Add. Instructions Additional Instructions/Restrictions: * Today your evaluated in the emergency department, your lab workup was overall unremarkable. Your heart enzyme was normal. Please follow-up with your PCP within 5 days. Please return to the ED for worsening of condition. Clinical Impressions Clinical Impression: Chest pain Qualifiers: Chest pain type: unspecified Qualified Code(s): R07.9 - Chest pain, unspecified Instructions Patient Instructions: DI for Atypical Chest Pain Print Language Print Language: [place] Discharge ED Provider: Glenys Hassan General Adult HPI <Yudelka Gunter APRN - Last Filed: 09/23/24 13:44> General Chief complaint: Chest Pain Stated complaint: chest pain Time Seen by Provider: 09/23/24 12:13 History of Present Illness HPI narrative: Patient is a 73-year-old female who presents to the ED with complaints of chest pain that started a few minutes prior to arrival. Denies any additional medical complaints at this time. Related Data Home Medications ?Medication ?Instructions ?Recorded ?Confirmed aspirin 81 mg chewable tablet 81 mg PO DAILY 07/21/23 09/21/24 Previous Rx's ?Medication ?Instructions ?Recorded metoprolol succinate 50 mg See Rx Instructions .Route 10/11/23 tablet,extended release 24 hr .COMPLEX #90 tabs fluticasone propionate 50 2 spray intranasal DAILY #16 grams 05/15/24 mcg/actuation nasal spray,suspension omeprazole 20 mg capsule,delayed 20 mg PO DAILY #90 caps 05/15/24 release venlafaxine 37.5 mg tablet 37.5 mg PO BID mood #180 tabs 05/15/24 alendronate 70 mg tablet See Rx Instructions .Route 06/12/24 .COMPLEX #12 tabs clopidogrel 75 mg tablet See Rx Instructions .Route 06/12/24 .COMPLEX #90 tabs famotidine 20 mg tablet See Rx Instructions .Route 06/12/24 .COMPLEX #90 tabs quetiapine 50 mg tablet (Seroquel) 50 mg PO HS #90 tabs 06/12/24 lactobacillus combo no.11 15 1 cap PO DAILY 30 days #30 caps 06/16/24 billion cell sprinkle capsule (Probiotic) acetaminophen 325 mg tablet 325 mg PO QID PRN pain #30 tabs 07/15/24 (Tylenol) amlodipine 5 mg tablet See Rx Instructions .Route 08/11/24 .COMPLEX #90 tabs atorvastatin 40 mg tablet 40 mg PO DAILY #90 tabs 08/11/24 isosorbide mononitrate 30 mg 30 mg PO DAILY #90 tabs 08/11/24 tablet,extended release 24 hr metformin 500 mg tablet 500 mg PO BID #180 tabs 08/11/24 diazepam 2 mg tablet 2 mg PO TID #90 tabs 08/14/24 ondansetron 4 mg disintegrating 4 mg PO Q8H PRN nausea and 08/21/24 tablet vomiting #30 tabs sucralfate 100 mg/mL oral 10 ml PO BID #600 mL 08/29/24 suspension gabapentin 100 mg capsule See Rx Instructions .Route 09/12/24 .COMPLEX #60 caps furosemide 20 mg tablet 20 mg PO DAILY #30 tabs 09/15/24 Allergies Allergy/AdvReac Type Severity Reaction Status Date / Time codeine (CODEINE) Allergy Unknown WEAK Verified 09/23/24 12:24 hydrochlorothiazide Allergy Unknown I-RASH Verified 09/23/24 12:24 (HYDROCHLOROTHIAZIDE) hydrocodone (HYDROCODONE) Allergy Unknown I-RASH Verified 09/23/24 12:24 metoclopramide Allergy Unknown SLURRED Verified 09/23/24 12:24 (METOCLOPRAMIDE) SPEECH, WEAK nifedipine (NIFEDIPINE) Allergy Unknown I-HIVES Verified 09/23/24 12:24 prazosin (PRAZOSIN) Allergy Unknown ITCHING/WEA Verified 09/23/24 12:24 K triamterene (TRIAMTERENE) Allergy Unknown I-RASH Verified 09/23/24 12:24 PFS <Yudelka Gunter, MUSHROOM GROWER - Last Filed: 09/23/24 13:44> PFS Disclaimer: The information contained in this section may have been updated after the patient was seen, as this information can be updated by other users. 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 Family History Other Family history of cancer Family history of diabetes mellitus type II Family history of hypertension Family history of myocardial infarction Social History Smoking Status: Never smoker second hand exposure: Yes alcohol intake: never substance use type: denies use current occupational status: retired Travel in the last 8 weeks: None household members: none housing: apartment lives independently: Yes marital status: single education level: middle school service: No alf: No current occupational exposures/hazards: No caffeine: Yes do you feel safe at home: Yes victim of physical abuse: No victim of emotional abuse: No victim of sexual abuse: No would you like helpful sources: No Have you lived/traveled outside [place] in past 30 days?: No Contact w/someone who lives/traveled outside [place] past 30 days?: No Exposure to someone with infectious disease in past 14 days?: No Do you have a fever (greater than 100.4 F or 38 C)?: No Have you tested positive for COVID-19: No Exposed to someone with COVID-19 in past 14 days?: No Do you have a sore throat?: No Do you have a cough?: No Do you have any weakness?: No Do you have any diarrhea?: No Are you experiencing any unusual bleeding?: No Do you have any muscle aches/pain?: No Do you have any abdominal pain?: No Are you experiencing loss of taste or smell?: No Other Medical History Have you received the Flu Vaccine for this season: No Have you received the Pneumonia Vaccine: Yes <Yudelka GunterERIK eason - Last Filed: 09/23/24 13:44> ROS Obtained: Yes Systems reviewed as appropriate & no additional complaints except as documented Physical Exam <Yudelka Gunter APRN - Last Filed: 09/23/24 13:44> General General appearance: alert and in no apparent distress Head Head exam: atraumatic and normocephalic Eye Eye exam: Present normal appearance and PERRL ENT ENT exam: Present normal exam Neck Neck exam: Present normal inspection Chest Chest inspection: Present normal inspection and symmetric chest wall rise; Absent tenderness Respiratory Respiratory exam: Present normal lung sounds bilaterally Cardiovascular Cardiovascular exam: Present regular rate Abdominal Exam Abdominal exam: Present soft and normal bowel sounds; Absent tenderness Extremities Exam Extremities exam: Present normal inspection and full ROM Back Exam Back exam: Present normal inspection and full ROM Neurological Exam Neurological exam: Present alert and oriented X3 Psychiatric Psychiatric exam: Present normal affect and normal mood Skin Skin exam: Present warm and dry Medical Decision Making <Yudelka Gunter APRN - Last Filed: 09/23/24 13:44> Medical Records Screening: Per USPSTF and CDC recommendations, given the prevalence of disease in our region, it is our hospital?s policy to screen for HIV and viral Hepatitis for all patients aged 18 and over and those with ongoing risk factors. Chet Inquiry Pt receiving controlled substance: No Chet was queried for this patient: No Vital Signs: 09/23/24 12:13 09/23/24 12:30 09/23/24 13:45 Temperature 97.9 F 97.9 F Temperature Source Oral Pulse Rate 70 71 Pulse Rate [Right] 76 Respiratory Rate 15 12 16 Blood Pressure 148/70 H 118/78 Blood Pressure [Left Arm] 154/74 H Blood Pressure Mean [Left Arm] 100 Blood Pressure Source [Left Arm] Automatic Cuff Blood Pressure Position [Left Arm] Supine 02 Sat by Pulse Oximetry 99 98 Oxygen Delivery Method Room Air Room Air Lab Data Lab Results 09/23/24 12:17: WBC 5.0, RBC 3.37 L, Hgb 10.7 L, Hct 32.3 L, MCV 95.8, MCH 31.8 H, MCHC 33.1, RDW 13.6, Plt Count 219, MPV 10.3, Neut % (Auto) 70.8, Lymph % (Auto) 17.3, Benzie % (Auto) 9.5 H, Eos % (Auto) 0.8, Baso % (Auto) 0.6, Neut # (Auto) 3.5, Lymph # (Auto) 0.9, Benzie # (Auto) 0.5, Eos # (Auto) 0.0, Baso # (Auto) 0.0, Sodium 134 L, Potassium 4.6, Chloride 100, Carbon Dioxide 28, Anion Gap 10.6, BUN 21 H, Creatinine 0.80, Estimated Creat Clear 45, Estimated GFR 70, Est GFR ( Amer) 85, Glucose 154 H, Calcium 9.8, Total Bilirubin 0.5, AST 30, ALT 22, Alkaline Phosphatase 55, Troponin I < 0.01, Total Protein 7.2, A lbumin 5.1 H, Globulin 2.1, Albumin/Globulin Ratio 2.4 H 09/23/24 12:17 09/23/24 12:17 Orders (Tests/Meds): ORDERS Category Date Time Status CBC w/Auto Diff [Complete Blood Count Auto Diff] Stat Lab 09/23/24 12:17 Completed CMP [Comprehensive Metabolic Panel] Stat Lab 09/23/24 12:17 Completed Trop I [Troponin I] Stat Lab 09/23/24 12:17 Completed Troponin I Q3H Lab 09/23/24 15:30 Ordered Troponin I Q3H Lab 09/23/24 18:30 Ordered Medical Decision Narrative: In sumary, patient is a 73-year-old female PMHx anxiety, diabetes, depression, hypertension, hyperlipidemia, coronary artery disease, CABG who presents to the ED with complaints of chest pain that started a few minutes prior to arrival. Denies any additional medical complaints at this time. Patient is frequently evaluated in the ED for similar complaint. She states that her chest pain is centrally located, describes it as an ache. Denies any other needs at this time. Denies headache, visual disturbances, neck pain, shortness of breath, abdominal pain, nausea, vomiting, dysuria. Upon initial evaluation patient is alert, oriented and cooperative. She is hemodynamically stable. Her physical exam is unremarkable. She is ambulatory in the ED without difficulty. Discussed with patient that we will proceed with labs and cardiac enzyme. I do not feel inclined to obtain a chest x-ray at this time as patient has had multiple recent chest x-rays that are unremarkable. CBC unremarkable for any leukocytosis, stable H&H. CMP overall unremarkable. First troponin < 0.01. Discussed with patient that her workup is overall unremarkable. She is asymptomatic at this time. Given this, I feel she is appropriate to be discharged home. Discussed with her that she will need to follow-up with her PCP within 5 days. We discussed return precautions to the ED and patient verbalized understanding. <Glenys Hassan, DO - Last Filed: 09/23/24 14:25> Vital Signs: 09/23/24 12:13 09/23/24 12:30 09/23/24 13:45 Temperature 97.9 F 97.9 F Temperature Source Oral Pulse Rate 70 71 Pulse Rate [Right] 76 Respiratory Rate 15 12 16 Blood Pressure 148/70 H 118/78 Blood Pressure [Left Arm] 154/74 H Blood Pressure Mean [Left Arm] 100 Blood Pressure Source [Left Arm] Automatic Cuff Blood Pressure Position [Left Arm] Supine 02 Sat by Pulse Oximetry 99 98 Oxygen Delivery Method Room Air Room Air Lab Data Lab Results 09/23/24 12:17: WBC 5.0, RBC 3.37 L, Hgb 10.7 L, Hct 32.3 L, MCV 95.8, MCH 31.8 H, MCHC 33.1, RDW 13.6, Plt Count 219, MPV 10.3, Neut % (Auto) 70.8, Lymph % (Auto) 17.3, Benzie % (Auto) 9.5 H, Eos % (Auto) 0.8, Baso % (Auto) 0.6, Neut # (Auto) 3.5, Lymph # (Auto) 0.9, Benzie # (Auto) 0.5, Eos # (Auto) 0.0, Baso # (Auto) 0.0, Sodium 134 L, Potassium 4.6, Chloride 100, Carbon Dioxide 28, Anion Gap 10.6, BUN 21 H, Creatinine 0.80, Estimated Creat Clear 45, Estimated GFR 70, Est GFR ( Amer) 85, Glucose 154 H, Calcium 9.8, Total Bilirubin 0.5, AST 30, ALT 22, Alkaline Phosphatase 55, Troponin I < 0.01, Total Protein 7.2, A lbumin 5.1 H, Globulin 2.1, Albumin/Globulin Ratio 2.4 H Orders (Tests/Meds): ORDERS Category Date Time Status CBC w/Auto Diff [Complete Blood Count Auto Diff] Stat Lab 09/23/24 12:17 Completed CMP [Comprehensive Metabolic Panel] Stat Lab 09/23/24 12:17 Completed Trop I [Troponin I] Stat Lab 09/23/24 12:17 Completed Troponin I Q3H Lab 09/23/24 15:30 Ordered Troponin I Q3H Lab 09/23/24 18:30 Ordered ECG Data Tracing #1: I reviewed this ECG and interpreted as documented below: Paced at a ventricular rate of 73 bpm. Does not meet Sgarbossa criteria for STEMI. ECG initial impression date: 09/23/24 ECG initial impression time: 12:13 Critical Care <Yudelka Gunter APRN - Last Filed: 09/23/24 13:44> Critical Care Time Critical Care Time: No
[2024-09-23 12:27] LABS: Basophils % 0.6 % (0.1-2.0); Eosinophils % 0.8 % (0.1-12.0); Hematocrit 32.3 % (37.0-47.0); Hemoglobin 10.7 g/dL (12.2-16.2); Lymphocytes # 0.9 K/mm3 (0.7-4.5); Lymphocytes % 17.3 % (10-50); Mean Corpuscular HGB Conc 33.1 g/dL (31.8-35.4); Mean Corpuscular Hemoglobin 31.8 pg (27.0-31.2); Mean Corpuscular Volume 95.8 fl (81-99); Mean Platelet Volume 10.3 fl (7.4-10.4); Monocytes # 0.5 K/mm3 (0.1-1.0); Monocytes % 9.5 % (1.7-9.3); Neutrophils # 3.5 K/mm3 (1.8-7.8); Neutrophils % 70.8 % (37.0-80.0); Platelet Count 219 K/mm3 (142-424); Red Blood Count 3.37 M/mm3 (4.20-5.40); Red Cell Distribution Width 13.6 % (11.5-17.5)
[2024-09-23 12:29] LABS: Albumin Level 5.1 g/dl (3.5-5.0); Chloride 100 mmol/L (98-107); Sodium 134 mmol/L (136-145)
[2024-09-23 12:30] VITALS: BP 148/70; PULSE 70; RESP 12; O2SAT 98
[2024-09-23 12:30] LABS: Potassium 4.6 mmoL/L (3.5-5.1)
[2024-09-23 12:32] LABS: Alanine Aminotransferase 22 U/L (12-78); Albumin/Globulin Ratio 2.4 (1.1-1.8); Alkaline Phosphatase 55 U/L (38-126); Anion Gap 10.6 mEq/L (5-15); Aspartate Amino Transferase 30 U/L (14-36); Bilirubin,Total 0.5 mg/dl (0.2-1.3); Blood Urea Nitrogen 21 mg/dl (7-17); Carbon Dioxide 28 mmol/L (22.0-30.0); Creatinine Clearance Estimated 45 mL/min (50-200); Estimated Glomerular Filt Rate 70 ml/min (>60); GFR (African American) 85 ML/MIN (>60); Globulin 2.1 g/dL (1.3-3.2); Total Protein,Serum 7.2 g/dl (6.3-8.2)
[2024-09-23 12:33] LABS: Calcium 9.8 mg/dl (8.4-10.2); Glucose 154 mg/dl (74-100)
[2024-09-23 12:47] LABS: Troponin I < 0.01 ng/ml (0.00-0.034)
[2024-09-23 13:45] VITALS: BP 118/78; PULSE 71; RESP 16; TEMP 36.6; O2SAT 98
--- NOTE | 2024-09-23 21:38 | HMH.EDGENADL ---
Discharge Plan Disposition Patient Disposition: Home, Self-Care Condition: Good Prescriptions Prescriptions: No Action diazepam 2 mg tablet 2 mg PO TID Qty: 90 2RF sucralfate 100 mg/mL suspension 10 ml PO BID Qty: 600 2RF metoprolol succinate 50 mg tablet extended release 24 hr See Rx Instructions .ROUTE .COMPLEX Qty: 90 3RF Dose Instruction: TAKE ONE TABLET BY MOUTH ONCE A DAY FOR HIGH BLOOD PRESSURE Rx Instructions: TAKE ONE TABLET BY MOUTH ONCE A DAY FOR HIGH BLOOD PRESSURE fluticasone propionate 50 mcg/actuation spray,suspension 2 spray intranasal DAILY Qty: 16 5RF omeprazole 20 mg capsule,delayed release(DR/EC) 20 mg PO DAILY Qty: 90 1RF venlafaxine 37.5 mg tablet 37.5 mg PO BID Qty: 180 1RF famotidine 20 mg tablet See Rx Instructions .ROUTE .COMPLEX Qty: 90 3RF Dose Instruction: TAKE ONE TABLET BY MOUTH ONCE A DAY FOR GERD Rx Instructions: TAKE ONE TABLET BY MOUTH ONCE A DAY FOR GERD clopidogrel 75 mg tablet See Rx Instructions .ROUTE .COMPLEX Qty: 90 1RF Dose Instruction: TAKE ONE TABLET BY MOUTH DAY Rx Instructions: TAKE ONE TABLET BY MOUTH DAY quetiapine [Seroquel] 50 mg tablet 50 mg PO HS Qty: 90 1RF alendronate 70 mg tablet See Rx Instructions .ROUTE .COMPLEX Qty: 12 1RF Dose Instruction: TAKE ONE TABLET BY MOUTH ONCE A WEEK Rx Instructions: TAKE ONE TABLET BY MOUTH ONCE A WEEK amlodipine 5 mg tablet See Rx Instructions .ROUTE .COMPLEX Qty: 90 0RF Dose Instruction: TAKE ONE TABLET BY MOUTH ONCE A DAY Rx Instructions: TAKE ONE TABLET BY MOUTH ONCE A DAY isosorbide mononitrate 30 mg tablet extended release 24 hr 30 mg PO DAILY Qty: 90 1RF metformin 500 mg tablet 500 mg PO BID Qty: 180 1RF atorvastatin 40 mg tablet 40 mg PO DAILY Qty: 90 1RF ondansetron 4 mg tablet,disintegrating 4 mg PO Q8H PRN (Reason: nausea and vomiting) Qty: 30 0RF gabapentin 100 mg capsule See Rx Instructions .ROUTE .COMPLEX Qty: 60 0RF Dose Instruction: TAKE 2 CAPSULES (200 MG) BY MOUTH AT BEDTIME Rx Instructions: TAKE 2 CAPSULES (200 MG) BY MOUTH AT BEDTIME Probiotic 15 billion cell capsule, sprinkle 1 cap PO DAILY 30 Days Qty: 30 0RF Rx Instructions: do not crush/chew/cut; swallow whole OR may open and sprinkle in cold drink/food acetaminophen [Tylenol] 325 mg tablet 325 mg PO QID PRN (Reason: pain) Qty: 30 0RF furosemide 20 mg tablet 20 mg PO DAILY Qty: 30 2RF aspirin 81 mg tablet,chewable 81 mg PO DAILY Referrals Follow up/Referrals: Hansel Ruff MD [Primary Care Provider] - See instructions Activity Restrictions/Add. Instructions Additional Instructions/Restrictions: Today your evaluated in the emergency department, your lab workup was overall unremarkable. Your heart enzyme was normal. Please follow-up with your PCP within 5 days. Please return to the ED for worsening of condition. Clinical Impressions Clinical Impression: Chest pain Qualifiers: Chest pain type: unspecified Qualified Code(s): R07.9 - Chest pain, unspecified Instructions Patient Instructions: DI for Atypical Chest Pain Print Language Print Language: Indonesian Discharge ED Provider: Glenys Hassan General Adult HPI General Chief complaint: Chest Pain Stated complaint: chest pain Time Seen by Provider: 09/23/24 12:13 Mode of Arrival: Wheelchair Source of Information: Patient Description of Symptoms (Recalled from ER Triage Doc. by RN): patient states today she was sitting on couch and began having substernal chest pain that feels like pressure. she denies any pain radiating anywhere 01/18 History of Present Illness HPI narrative: Patient is a 73-year-old female who presents to the ED with chest pain that started several minutes prior to arrival Related Data Home Medications ?Medication ?Instructions ?Recorded ?Confirmed aspirin 81 mg chewable tablet 81 mg PO DAILY 07/21/23 09/21/24 Previous Rx's ?Medication ?Instructions ?Recorded metoprolol succinate 50 mg See Rx Instructions .Route 10/11/23 tablet,extended release 24 hr .COMPLEX #90 tabs fluticasone propionate 50 2 spray intranasal DAILY #16 grams 05/15/24 mcg/actuation nasal spray,suspension omeprazole 20 mg capsule,delayed 20 mg PO DAILY #90 caps 05/15/24 release venlafaxine 37.5 mg tablet 37.5 mg PO BID mood #180 tabs 05/15/24 alendronate 70 mg tablet See Rx Instructions .Route 06/12/24 .COMPLEX #12 tabs clopidogrel 75 mg tablet See Rx Instructions .Route 06/12/24 .COMPLEX #90 tabs famotidine 20 mg tablet See Rx Instructions .Route 06/12/24 .COMPLEX #90 tabs quetiapine 50 mg tablet (Seroquel) 50 mg PO HS #90 tabs 06/12/24 lactobacillus combo no.11 15 1 cap PO DAILY 30 days #30 caps 06/16/24 billion cell sprinkle capsule (Probiotic) acetaminophen 325 mg tablet 325 mg PO QID PRN pain #30 tabs 07/15/24 (Tylenol) amlodipine 5 mg tablet See Rx Instructions .Route 08/11/24 .COMPLEX #90 tabs atorvastatin 40 mg tablet 40 mg PO DAILY #90 tabs 08/11/24 isosorbide mononitrate 30 mg 30 mg PO DAILY #90 tabs 08/11/24 tablet,extended release 24 hr metformin 500 mg tablet 500 mg PO BID #180 tabs 08/11/24 diazepam 2 mg tablet 2 mg PO TID #90 tabs 08/14/24 ondansetron 4 mg disintegrating 4 mg PO Q8H PRN nausea and 08/21/24 tablet vomiting #30 tabs sucralfate 100 mg/mL oral 10 ml PO BID #600 mL 08/29/24 suspension gabapentin 100 mg capsule See Rx Instructions .Route 09/12/24 .COMPLEX #60 caps furosemide 20 mg tablet 20 mg PO DAILY #30 tabs 09/15/24 Allergies Allergy/AdvReac Type Severity Reaction Status Date / Time codeine (CODEINE) Allergy Unknown WEAK Verified 09/23/24 12:24 hydrochlorothiazide Allergy Unknown I-RASH Verified 09/23/24 12:24 (HYDROCHLOROTHIAZIDE) hydrocodone (HYDROCODONE) Allergy Unknown I-RASH Verified 09/23/24 12:24 metoclopramide Allergy Unknown SLURRED Verified 09/23/24 12:24 (METOCLOPRAMIDE) SPEECH, WEAK nifedipine (NIFEDIPINE) Allergy Unknown I-HIVES Verified 09/23/24 12:24 prazosin (PRAZOSIN) Allergy Unknown ITCHING/WEA Verified 09/23/24 12:24 K triamterene (TRIAMTERENE) Allergy Unknown I-RASH Verified 09/23/24 12:24 [facility] Disclaimer: The information contained in this section may have been updated after the patient was seen, as this information can be updated by other users. 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 Family History Other Family history of cancer Family history of diabetes mellitus type II Family history of hypertension Family history of myocardial infarction Social History Smoking Status: Never smoker second hand exposure: Yes alcohol intake: never substance use type: denies use current occupational status: retired Travel in the last 8 weeks: None household members: none housing: apartment lives independently: Yes marital status: single education level: middle school service: No [place] [facility]: No current occupational exposures/hazards: No caffeine: Yes do you feel safe at home: Yes victim of physical abuse: No victim of emotional abuse: No victim of sexual abuse: No would you like helpful sources: No Have you lived/traveled outside [place] in past 30 days?: No Contact w/someone who lives/traveled outside US past 30 days?: No Exposure to someone with infectious disease in past 14 days?: No Do you have a fever (greater than 100.4 F or 38 C)?: No Have you tested positive for COVID-19: No Exposed to someone with COVID-19 in past 14 days?: No Do you have a sore throat?: No Do you have a cough?: No Do you have any weakness?: No Do you have any diarrhea?: No Are you experiencing any unusual bleeding?: No Do you have any muscle aches/pain?: No Do you have any abdominal pain?: No Are you experiencing loss of taste or smell?: No Other Medical History Have you received the Flu Vaccine for this season: No Have you received the Pneumonia Vaccine: Yes ROS Obtained: Yes Systems reviewed as appropriate & no additional complaints except as documented Physical Exam General General appearance: alert and in no apparent distress Head Head exam: atraumatic and normocephalic Eye Eye exam: Present normal appearance and PERRL ENT ENT exam: Present normal exam Neck Neck exam: Present normal inspection Chest Chest inspection: Present normal inspection and symmetric chest wall rise; Absent tenderness Respiratory Respiratory exam: Present normal lung sounds bilaterally Cardiovascular Cardiovascular exam: Present regular rate Abdominal Exam Abdominal exam: Present soft and normal bowel sounds; Absent tenderness Extremities Exam Extremities exam: Present normal inspection and full ROM Back Exam Back exam: Present normal inspection and full ROM Neurological Exam Neurological exam: Present alert and oriented X3 Psychiatric Psychiatric exam: Present normal affect and normal mood Skin Skin exam: Present warm and dry Medical Decision Making Medical Records Screening: Per USPSTF and CDC recommendations, given the prevalence of disease in our region, it is our hospital?s policy to screen for HIV and viral Hepatitis for all patients aged 18 and over and those with ongoing risk factors. Chet Inquiry Pt receiving controlled substance: No Chet was queried for this patient: No Vital Signs: 09/23/24 12:13 09/23/24 12:30 09/23/24 13:45 Temperature 97.9 F 97.9 F Temperature Source Oral Pulse Rate 70 71 Pulse Rate [Right] 76 Respiratory Rate 15 12 16 Blood Pressure 148/70 H 118/78 Blood Pressure [Left Arm] 154/74 H Blood Pressure Mean [Left Arm] 100 Blood Pressure Source [Left Arm] Automatic Cuff Blood Pressure Position [Left Arm] Supine 02 Sat by Pulse Oximetry 99 98 Oxygen Delivery Method Room Air Room Air Lab Data Lab Results 09/23/24 12:17: WBC 5.0, RBC 3.37 L, Hgb 10.7 L, Hct 32.3 L, MCV 95.8, MCH 31.8 H, MCHC 33.1, RDW 13.6, Plt Count 219, MPV 10.3, Neut % (Auto) 70.8, Lymph % (Auto) 17.3, [place] % (Auto) 9.5 H, Eos % (Auto) 0.8, Baso % (Auto) 0.6, Neut # (Auto) 3.5, Lymph # (Auto) 0.9, [place] # (Auto) 0.5, Eos # (Auto) 0.0, Baso # (Auto) 0.0, Sodium 134 L, Potassium 4.6, Chloride 100, Carbon Dioxide 28, Anion Gap 10.6, BUN 21 H, Creatinine 0.80, Estimated Creat Clear 45, Estimated GFR 70, Est GFR ( Amer) 85, Glucose 154 H, Calcium 9.8, Total Bilirubin 0.5, AST 30, ALT 22, Alkaline Phosphatase 55, Troponin I < 0.01, Total Protein 7.2, Albumin 5.1 H, Globulin 2.1, Albumin/Globulin Ratio 2.4 H 09/23/24 12:17 09/23/24 12:17 Orders (Tests/Meds): ORDERS Category Date Time Status CBC w/Auto Diff [Complete Blood Count Auto Diff] Stat Lab 09/23/24 12:17 Completed CMP [Comprehensive Metabolic Panel] Stat Lab 09/23/24 12:17 Completed Trop I [Troponin I] Stat Lab 09/23/24 12:17 Completed Medical Decision Narrative: In summary, patient is a 73-year-old female PMHx GERD, URI, hypertension, nausea, diabetes, valve replacement who presents to the ED with complaints of centrally located chest pain that she describes as an ache. Patient states that the pain started several minutes prior to arrival. She denies any other symptoms at this time. Patient has been seen in the ED frequently for the same complaint. Denies fever, chills, headache, visual disturbances, neck pain, shortness of breath, abdominal pain, nausea, vomiting, dysuria, diarrhea. Upon initial evaluation patient is alert, oriented and cooperative. She is stable. Her physical exam is unremarkable. Discussed with patient that we will obtain labs, EKG and will defer chest x-ray at this time as patient has had multiple recent chest x-rays. CBC unremarkable for any leukocytosis, stable H&H. CMP unremarkable for any actionable abnormalities. First troponin < 0.01. Upon reassessment, patient's condition has improved. She is walking around the ED without difficulty. Her chest pain has resolved at this time. Given this, I feel the patient is safe to be discharged home at this time. I discussed with her to follow-up with her PCP within 1 week. We discussed return precautions to the ED and patient verbalized understanding. Critical Care Critical Care Time Critical Care Time: No
== END 2024-09-23 13:46 | disposition home or self-care (01) ==
PROVIDERS: Nurse Practitioner; Emergency Provider Emergency Medicine; PCP Internal Medicine
DX: R07.9 Chest pain, unspecified (principal)
CPT/HCPCS: 80053; 84484; 85025; 93005; 99283

== ENCOUNTER 2024-10-10 10:54 | Outpatient (CLI) | payer MEDICARE, OTHER, SELFPAY ==
[2024-10-10 11:25] LABS: Basophils % 0.5 % (0.1-2.0); Eosinophils % 0.3 % (0.1-12.0); Hematocrit 33.2 % (37.0-47.0); Hemoglobin 11.2 g/dL (12.2-16.2); Lymphocytes # 0.9 K/mm3 (0.7-4.5); Lymphocytes % 14.6 % (10-50); Mean Corpuscular HGB Conc 33.7 g/dL (31.8-35.4); Mean Corpuscular Hemoglobin 32.4 pg (27.0-31.2); Mean Platelet Volume 10.2 fl (7.4-10.4); Monocytes # 0.5 K/mm3 (0.1-1.0); Monocytes % 8.8 % (1.7-9.3); Neutrophils # 4.4 K/mm3 (1.8-7.8); Neutrophils % 75.3 % (37.0-80.0); Platelet Count 215 K/mm3 (142-424); Red Blood Count 3.46 M/mm3 (4.20-5.40); Red Cell Distribution Width 13.1 % (11.5-17.5); White Blood Count 5.8 K/mm3 (4.8-10.8)
[2024-10-10 11:48] LABS: Albumin Level 4.9 g/dl (3.5-5.0); Chloride 101 mmol/L (98-107); Potassium 3.8 mmoL/L (3.5-5.1); Sodium 138 mmol/L (136-145)
[2024-10-10 11:51] LABS: Alanine Aminotransferase 18 U/L (12-78); Alkaline Phosphatase 58 U/L (38-126); Anion Gap 12.8 mEq/L (5-15); Aspartate Amino Transferase 25 U/L (14-36); Bilirubin,Direct 0.2 mg/dl (0.0-0.4); Bilirubin,Indirect 0.3 mg/dL (0.0-0.9); Bilirubin,Total 0.5 mg/dl (0.2-1.3); Bilirubin,Unconjugated 0.3 mg/dL (0.0-1.1); Blood Urea Nitrogen 24 mg/dl (7-17); Carbon Dioxide 28 mmol/L (22.0-30.0); Cholesterol 138 mg/dl (140-200); Estimated Glomerular Filt Rate 70 ml/min (>60); GFR (African American) 85 ML/MIN (>60); Total Protein,Serum 6.6 g/dl (6.3-8.2); Triglycerides 188 mg/dl (30-150); VLDL Cholesterol 38 mg/dL (0-40)
[2024-10-10 11:52] LABS: Calcium 9.6 mg/dl (8.4-10.2); Chol/HDL Ratio 2.7 (1-3.5); Glucose 120 mg/dl (74-100); HDL Cholesterol 52 mg/dl (40-60)
[2024-10-10 12:02] LABS: NT Pro Brain Natriuretic Pep. 537 pg/mL (0-450)
[2024-10-10 12:03] LABS: Direct LDL Cholesterol 57.47 mg/dL (100-129)
[2024-10-10 12:10] LABS: Free T4 (Free Thyroxine) 0.79 ng/dl (0.78-2.19)
[2024-10-10 12:23] LABS: Thyroid Stimulating Hormone 1.11 uIU/mL (0.465-4.68)
== END 2024-10-10 23:59 | disposition home or self-care (01) ==
LOC: LAB 10:55
PROVIDERS: PCP Internal Medicine; Visit Provider Physician Assistant
DX: I25.10 Atherosclerotic heart disease of native coronary artery without angina pectoris (principal); R79.89 Other specified abnormal findings of blood chemistry; I10 Essential (primary) hypertension; E11.59 Type 2 diabetes mellitus with other circulatory complications; E78.49 Other hyperlipidemia; R06.02 Shortness of breath
CPT/HCPCS: 36415; 80048; 80061; 80076; 83880; 84439; 84443; 85025

== ENCOUNTER 2024-10-25 10:05 | Day surgery (SDC) | payer MEDICARE, OTHER, SELFPAY ==
--- NOTE | 2024-10-16 13:39 | SUR.PREOP ---
botox order sent to pharmacy at this time
[2024-10-24 10:59] VITALS: BMI 24.2
[2024-10-25] VITALS (10 sets, daily range): BP systolic 91–139; BP diastolic 47–79; PULSE 60–68; RESP 16–18; TEMP 36.1–36.2; O2SAT 96–100
[2024-10-25] MEDS: LACTATED RINGERS 1000ML 1,000 ML 50 ML IV (11:55)
--- NOTE | 2024-10-25 12:04 | EXP.ANES.CKL ---
[facility] Disclaimer: The information contained in this section may have been updated after the patient was seen, as this information can be updated by other users. 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 Family History Other Family history of cancer Family history of diabetes mellitus type II Family history of hypertension Family history of myocardial infarction Social History (Updated 10/25/24 @ 11:44 by Lisa Delgado RN) Smoking Status: Never smoker second hand exposure: Yes alcohol intake: never substance use type: denies use current occupational status: retired and disabled Travel in the last 8 weeks: None household members: none housing: apartment lives independently: Yes marital status: single education level: middle school service: No care home: No current occupational exposures/hazards: No caffeine: No do you feel safe at home: Yes victim of physical abuse: No victim of emotional abuse: No victim of sexual abuse: No would you like helpful sources: No Have you lived/traveled outside US in past 30 days?: No Contact w/someone who lives/traveled outside US past 30 days?: No Exposure to someone with infectious disease in past 14 days?: No Do you have a fever (greater than 100.4 F or 38 C)?: No Have you tested positive for COVID-19: No Exposed to someone with COVID-19 in past 14 days?: No Do you have a sore throat?: No Do you have a cough?: No Do you have any weakness?: No Are you experiencing any nausea/vomitting?: No Do you have any diarrhea?: No Are you experiencing any unusual bleeding?: No Do you have any muscle aches/pain?: No Do you have any abdominal pain?: No Are you experiencing loss of taste or smell?: No [facility] Anesthesia Checklist Patient Identification Patient Identification: Arm Band Structural Data Admitted From: Home Planned Operative Procedure/s: EGD with Botox Consent for Planned Operative Procedure(s) Verified: Yes Verified Documents: Surgical Consent and History and Physical NPO Status Verified Time NPO: 00:00 Additional verifications Anesthesia Reactions: No Hx Blood Transfusions: No Blood Transfusion Reaction: No Airway Assessment Mallampati Score:: Class II C-Spine Mobility Assessed: Yes TMJ Mobility Assessed: Yes Dentition: Edentulous Neurological Assessment Level of Consciousness: Awake, Alert and Appropriate Anesthesia Plan Anesthesia Risk discussed: Yes Anesthesia Plan: Verified ASA Class: III Anesthesia Type: MAC
--- NOTE | 2024-10-25 12:33 | EXP.HP ---
History of Present Illness *Admission Date: 10/25/24 *Reason for visit:: Dysphagia/achalasia/corkscrew esophagus *History of present illness: Mrs. Oconnor is a 73-year-old female with a history of achalasia who is here for EGD with Botox and possible esophageal dilation. The examination is deemed medically necessary for upper endoscopy. The patient has been seen, interviewed and examined prior to the procedure by both myself and the anesthesia provider. [facility] Disclaimer: The information contained in this section may have been updated after the patient was seen, as this information can be updated by other users. 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 Family History Other Family history of cancer Family history of diabetes mellitus type II Family history of hypertension Family history of myocardial infarction Social History (Updated 10/25/24 @ 11:44 by Lisa Delgado RN) Smoking Status: Never smoker second hand exposure: Yes alcohol intake: never substance use type: denies use current occupational status: retired and disabled Travel in the last 8 weeks: None household members: none housing: apartment lives independently: Yes marital status: single education level: middle school service: No shelter: No current occupational exposures/hazards: No caffeine: No do you feel safe at home: Yes victim of physical abuse: No victim of emotional abuse: No victim of sexual abuse: No would you like helpful sources: No Have you lived/traveled outside US in past 30 days?: No Contact w/someone who lives/traveled outside [place] past 30 days?: No Exposure to someone with infectious disease in past 14 days?: No Do you have a fever (greater than 100.4 F or 38 C)?: No Have you tested positive for COVID-19: No Exposed to someone with COVID-19 in past 14 days?: No Do you have a sore throat?: No Do you have a cough?: No Do you have any weakness?: No Are you experiencing any nausea/vomitting?: No Do you have any diarrhea?: No Are you experiencing any unusual bleeding?: No Do you have any muscle aches/pain?: No Do you have any abdominal pain?: No Are you experiencing loss of taste or smell?: No Other Medical History Have you received the Flu Vaccine for this season: No Have you received the Pneumonia Vaccine: Yes Review of Systems Review of Systems Review of systems (narrative): Negative *Cardiovascular Comments: Negative *Gastrointestinal Comments: Negative *Genitourinary Comments: Negative *Musculoskeletal Comments: Negative *Neurologic Comments: Negative Meds Home Medications and Allergies Home Medications ?Medication ?Instructions ?Recorded ?Confirmed ?Type aspirin 81 mg chewable tablet 81 mg PO DAILY 07/21/23 10/25/24 History fluticasone propionate 50 2 spray intranasal DAILY #16 grams 05/15/24 10/25/24 Rx mcg/actuation nasal spray,suspension omeprazole 20 mg capsule,delayed 20 mg PO DAILY #90 caps 05/15/24 10/25/24 Rx release venlafaxine 37.5 mg tablet 37.5 mg PO BID mood #180 tabs 05/15/24 10/25/24 Rx alendronate 70 mg tablet See Rx Instructions .Route 06/12/24 10/24/24 Rx .COMPLEX #12 tabs clopidogrel 75 mg tablet See Rx Instructions .Route 06/12/24 10/25/24 Rx .COMPLEX #90 tabs famotidine 20 mg tablet See Rx Instructions .Route 06/12/24 10/25/24 Rx .COMPLEX #90 tabs quetiapine 50 mg tablet (Seroquel) 50 mg PO HS #90 tabs 06/12/24 10/25/24 Rx lactobacillus combo no.11 15 1 cap PO DAILY 30 days #30 caps 06/16/24 10/25/24 Rx billion cell sprinkle capsule (Probiotic) acetaminophen 325 mg tablet 325 mg PO QID PRN pain #30 tabs 07/15/24 10/24/24 Rx (Tylenol) amlodipine 5 mg tablet See Rx Instructions .Route 08/11/24 10/24/24 Rx .COMPLEX #90 tabs atorvastatin 40 mg tablet 40 mg PO DAILY #90 tabs 08/11/24 10/25/24 Rx isosorbide mononitrate 30 mg 30 mg PO DAILY #90 tabs 08/11/24 10/25/24 Rx tablet,extended release 24 hr metformin 500 mg tablet 500 mg PO BID #180 tabs 08/11/24 10/25/24 Rx diazepam 2 mg tablet 2 mg PO TID #90 tabs 08/14/24 10/25/24 Rx ondansetron 4 mg disintegrating 4 mg PO Q8H PRN nausea and 08/21/24 10/25/24 Rx tablet vomiting #30 tabs furosemide 20 mg tablet 20 mg PO DAILY #30 tabs 09/15/24 10/25/24 Rx blood pressure monitor #1 ea 10/10/24 10/24/24 Rx metoprolol succinate 50 mg See Rx Instructions .Route 10/11/24 10/25/24 Rx tablet,extended release 24 hr .COMPLEX #90 tabs gabapentin 100 mg capsule See Rx Instructions .Route 10/24/24 10/25/24 Rx .COMPLEX #60 caps sucralfate 100 mg/mL oral 10 ml PO BID 10/25/24 10/25/24 History suspension (Carafate) New Prescriptions to Start Prescriptions: Allergies Allergy/AdvReac Type Severity Reaction Status Date / Time codeine (CODEINE) Allergy Unknown WEAK Verified 10/25/24 11:35 hydrochlorothiazide Allergy Unknown I-RASH Verified 10/25/24 11:35 (HYDROCHLOROTHIAZIDE) hydrocodone (HYDROCODONE) Allergy Unknown I-RASH Verified 10/25/24 11:35 metoclopramide Allergy Unknown SLURRED Verified 10/25/24 11:35 (METOCLOPRAMIDE) SPEECH, WEAK nifedipine (NIFEDIPINE) Allergy Unknown I-HIVES Verified 10/25/24 11:35 prazosin (PRAZOSIN) Allergy Unknown ITCHING/WEA Verified 10/25/24 11:35 K triamterene (TRIAMTERENE) Allergy Unknown I-RASH Verified 10/25/24 11:35 Exam Data for Last 24 hours Vital signs and Labs for Last 24 Hours: Temp Pulse Resp BP Pulse Ox O2 Del Method O2 Flow Rate 97.1 F L 67 16 139/74 100 Nasal Cannula 5 10/25/24 11:42 10/25/24 11:42 10/25/24 11:42 10/25/24 11:42 10/25/24 11:42 10/25/24 12:23 10/25/24 12:23 I & O for Last 24 hours: Intake & Output 10/22/24 10/23/24 10/24/24 10/25/24 23:59 23:59 23:59 23:59 Weight 124 lb *Routine HEENT Exam Head: Present normocephalic Eye: Present EOMI and PERRL ENT: Present mucous membranes moist *Routine Neck Exam Neck: Present supple *Routine Respiratory Exam Respiratory: Present CTA bilaterally *Routine Cardiovascular Exam Cardiovascular: Present RRR *Routine Abdominal Exam Abdominal: Present soft and normoactive bowel sounds; Absent tenderness *Routine Rectal Exam Rectal:: deferred *Routine Genitalia Exam Genitalia:: deferred *Routine Extremities Exam Extremities: Absent cyanosis, clubbing or edema *Routine Skin Exam Skin: Present warm; Absent rash *Routine Neurological Exam Neurological: Present alert and oriented X3 Assessment and Plan *Assessment and plan (1) Achalasia: Status: Chronic Category: Medical Code(s): K22.0 - Achalasia of cardia (2) Dysphagia: Status: Acute Category: Medical Code(s): R13.10 - Dysphagia, unspecified (3) GERD (gastroesophageal reflux disease): Status: Acute Category: Medical Code(s): K21.9 - Gastro-esophageal reflux disease without esophagitis (4) Regurgitation of food: Status: Acute Category: Medical Code(s): R11.10 - Vomiting, unspecified Plan A/P: 1. 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 The patient will be anesthetized/sedated using MAC sedation. The patient has been seen and examined. Cardiac and lung assessment prior to the examination is stable. Proceed with planned diagnostic/therapeutic EGD with planned Botox injection.
--- NOTE | 2024-10-25 12:36 | HMH.PROCNOTE ---
[facility] Procedure Note Date: 10/25/24 Time: 12:45 Procedure Note:: Upper Endoscopy Procedure Report: Esophagogastroduodenoscopy with cold biopsies, submucosal injection of Botox (100 IU) and TTS balloon dilation Endoscopost: Gibson Campbell II, MD Referring Physician: Hansel Ruff MD Date of Procedure: October 25, 2024 Equipment: Olympus GIF 190 standard upper endoscope Sedation: MAC sedation Indications: Mrs. Oconnor is a 73-year-old female who is here for diagnostic/therapeutic upper endoscopy secondary to recurrent dysphagia. She previously had a barium esophagram that showed a dilated distal esophagus with bird beaking/smooth tapering at the GE junction suggestive of achalasia. The patient has had esophageal dilations with Dr. Edgar Mackey. Her last EGD in September 2023 showed findings consistent with achalasia and she had Botox injected (20 units) 1 to 2 cm above the Z-line around the circumference in 5 aliquots. The patient does get food regurgitation, reflux and belching. Procedure: Prior to the procedure, a history and physical exam was performed, and patient's medications and allergies were reviewed. The risks, benefits and alternatives of the sedation and procedure were discussed with the patient. All questions were answered and informed consent was obtained. The patient was brought to the procedure room. Patient identification and proposed procedure were verified by the physician and the nurse. The patient was placed in a left lateral decubitus position and the scope was passed under direct vision. Throughout the procedure, the patient's blood pressure, pulse, and oxygen saturations were monitored continuously. The upper GI endoscopy was accomplished without difficulty. The patient tolerated the procedure well. Findings: The scope was passed directly into the upper esophagus and advanced to the third portion of the duodenum. The post bulbar duodenum and duodenal bulb were normal with normal mucosa and conniventes. The scope was withdrawn through a normal duodenal bulb and slightly spastic pylorus into the stomach. There was mild linear reactive gastropathy of the antrum. There was mild atrophy of the body and fundus. Upon retroflexion there was no hiatal hernia. There was no masses or abnormalities at the cardia of the stomach which appeared entirely normal at the GE junction. The scope was then withdrawn into the esophagus. The LES (lower esophageal sphincter) relaxed normally and there was no signs of failure of relaxation of LES. 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 There was no evidence of reflux esophagitis, rings or strictures. There was no corrugation or furrowing. Because of the evidence of markedly hypercontractile esophagus (diffuse esophageal spasm?corkscrew esophagus) the Botox was then injected at 2 cm and 7 cm above the gastroesophageal junction. 4 aliquots were used with 25 IU aliquots x 2 (at 2 cm proximal to the GE junction) and 25 IU aliquots x 2 (at 7 cm proximal to the GE junction). The entire esophagus was then dilated to 60 Sinhal[place]/20 mm with a TTS hydrostatic balloon. There was no resistance with maximal dilation. The remainder of the esophageal mucosa was normal. Impression: 1. 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 This is considered to be a hypercontractile condition of the esophagus and this can lead to symptoms of swallowing difficulty. Sometimes this can lead to chest pain and esophageal reflux symptoms as well. The underlying cause of this is not fully understood but we do believe that chronic gastroesophageal reflux may play some role. Additionally, treatment for corkscrew esophagus (hypercontractile esophagus) is not really well defined and is aimed at treating the primary symptom. Some herbal therapies including peppermint oil can be useful. Occasionally, we will use treatments called calcium channel blockers (i.e. diltiazem) or tricyclics (imipramine) which can sometimes help with the chest pain if it develops. If esophageal dilation fails to improve the swallowing difficulty incurred with this corkscrew esophagus/hypercontractile esophagus, we sometimes consider endoscopic Botox injection into the esophagus. In one trial of patients with corkscrew esophagus, treatment with botulinum toxin (injected endoscopically, 2 and 7 cm above the junction of the esophagus and stomach) resulted in greater symptomatic improvement of the impaired swallowing difficulty. I did perform this today and I will recommend that she begin peppermint.
[2024-10-25] MEDS: BOTULINUM TOXIN TYPE A 100 UNIT/ML IM (12:40)
[2024-10-27 14:52] LABS: POC Glucose,Bedside 129 (70-110)
== END 2024-10-25 14:00 | disposition home or self-care (01) ==
PROVIDERS: PCP Internal Medicine; Visit Provider Internal Medicine Gastroenterology
PROC: 3E0G8TZ Introduction of Destructive Agent into Upper GI, Via Natural or Artificial Opening Endoscopic (ICD-10-PCS; CPT 43236; principal; 2024-10-25 12:00)
DX: K31.9 Disease of stomach and duodenum, unspecified (principal); K29.40 Chronic atrophic gastritis without bleeding; K22.0 Achalasia of cardia; R13.10 Dysphagia, unspecified; K21.9 Gastro-esophageal reflux disease without esophagitis; R11.10 Vomiting, unspecified; K22.4 Dyskinesia of esophagus; E11.9 Type 2 diabetes mellitus without complications
CPT/HCPCS: 43236; 43239; 43249; 82962; 88305; C1726; J0585; J7120

== ENCOUNTER 2024-11-23 12:37 | Outpatient (CLI) | payer MEDICARE, OTHER, SELFPAY ==
--- OUTSIDE RECORDS SUMMARY | 2024-11-23 12:39 | XMS_ITS | Data Portability ---
Author Organization [place] - [facility] - [place] & THEO Cramer ADMIN Address [address] [place] [id number] Assessment Encounter Date Assessment Date Assessment LastModified by Organization Details LastModified Time 02/17/2024 02/17/2024 73-year-old female with chronic right lower quadrant pain of unidentified etiology. She also has dysphagia secondary to achalasia. Plan for repeat EGD with Botox injection. Rather quadrant pain likely functional. No identified etiology on cross-sectional imaging or colonoscopy. [email or web address] Not available 02/17/2024 11:15:03 Plan of Treatment Reminders Order Date Submit Date Provider Last Modified By Organization Details Last Modified Time Details Appointments None record ed. Lab None record ed. Referral None record ed. Procedures None record ed. Surgeries None record ed. Imaging None record ed. Medication Orders None record ed. Patient TargetsNo targets recorded. Patient InstructionsNo instructions recorded. Reason for Referral None Reported. Medical Equipment None Reported. Medications Name Sig Start Date Stop Date Status Note LastModified by Organization Details LastModified Time atorvastatin 40 mg tablet active Not Available Not Available Not Available metformin 500 mg tablet active Not Available Not Available Not Available loperamide 2 mg capsule active Not Available Not Available N ot Available nystatin 100,000 unit/gram topical ointment active Not Available Not Available Not Available metoprolol succinate ER 50 mg tablet,exten ded release 24 hr active Not Available Not Available Not Available senna 8.6 mg tablet active Not Available Not Available Not Available lisinopril 20 mg tablet active Not Available Not Available Not Available ondansetron HCl 4 mg tablet active Not Available Not Available Not Available famotidine 40 mg tablet active Not Available Not Available Not Available isosorbide mononitrate ER 30 mg tablet,exten ded release 24 hr active Not Available Not Available Not Available alendronate 70 mg tablet active Not Available Not Available Not Available meclizine 12.5 mg tablet active Not Available Not Available Not Available clopidogrel 75 mg tablet active Not Available Not Available Not Available ciprofloxaci n 250 mg tablet active Not Available Not Available Not Available amlodipine 5 mg tablet active Not Available Not Available No t Available sulfamethoxa zole 800 mg-trimethop rim 160 mg tablet active Not Available Not Available Not Available omeprazole 40 mg capsule,dalton yed release active Not Available Not Available Not Available acetaminophe n 500 mg tablet active Not Available Not Available Not Available famotidine 20 mg tablet active Not Available Not Available Not Available diazepam 2 mg tablet active Not Available Not Available No t Available venlafaxine 37.5 mg tablet active Not Available Not Available Not Available docusate sodium 100 mg capsule active Not Available Not Available N ot Available omeprazole 20 mg capsule,dalton yed release active Not Available Not Available Not Available aspirin 81 mg chewable tablet active Not Available Not Available Not Available gabapentin 100 mg capsule active Not Available Not Available Not Available polyethylene glycol 3350 17 gram/dose oral powder active Not Available Not Available Not Available ondansetron 4 mg disintegrati ng tablet active Not Available Not Available No t Available fluticasone propionate 50 mcg/actuatio n nasal spray,suspen tamica active Not Available Not Available Not Available metocloprami de 10 mg tablet active Not Available Not Available Not Available amoxicillin 875 mg-potassium clavulanate 125 mg tablet active Not Available Not Available Not Available calcium 500 mg (as carbonate)-D 3 2.5 mcg (100 unit) chewable tablet active Not Available Not Available Not Available nitrofuranto in monohydrate/ macrocrystal s 100 mg capsule TAKE 1 CAPSULE BY MOUTH TWICE DAILY MUST ADMINISTER WITH A MEAL/FOOD FOR 7 DAYS active Not Available Not Available N ot Available quetiapine 50 mg tablet active Not Available Not Available Not Available cholecalcife rol (vitamin D3) 50 mcg (2,000 unit) tablet active Not Available Not Available Not Available Linzess 145 mcg capsule active Not Available Not Available Not Available Linzess 72 mcg capsule active Not Available Not Available Not Available Vitals Date Recorded Body weight Body mass index (BMI) Body height Body temperature Heart rate Heart rate Oxygen saturation Oxygen saturation in Arterial blood by Pulse oximetry Systolic blood pressure Diastolic blood pressure Provider Name and Address Organization Details Last Updated DateTime 4 13027.1 8 g 22.3 kg/m2 154.94 cm 97.9 [degF] 75 /min 77 /min 98 % 98 % 160 mm[Hg] 84 mm[Hg] Bailey Florez [place] - [facility] & [place] 10:49:58 Social History None recorded. Functional Status None recorded. Mental Status None recorded. Family History Nothing Reported. Medical History No medical history recorded. Gynecological HistoryNo gynecological history recorded. Obstetrics History GPAL:G 0 P 0 0 0 0 Past Encounters Encounter ID Performer Location Encounter Start Date Encounter Closed Date Diagnosis/Indication Diagnosis SNOMED-CT Code Diagnosis ICD10 Code Diagnosis Note [id number] Gregory Soriano MD [facility] [address] [id number] 02/17/2024 10:16:49 02/17/2024 11:24:06 Abdominal pain 11374798 R10.9 Achalasia of esophagus 35785772 K22.0 Dysphagia 25352208 R13.1 0 Health Concerns Section Related Observation LastModified by Organization Detai ls LastModified Time None Recorded Concern Status LastModified by Organization Details LastModified Time None Recorded Advance Directives Directive None Recorded Payers Insurance Date Sequence Insurance Name Policy Number Policy Piper Covered Member ID Piper Member ID Guarantor Name 02/17/2024 2 [place] Sharron Hankins Elvin [id number] Sharron Hankins Elvin 02/17/2024 2 [facility] (MEDICAID HMO) Sharron Oconnor [id number] Sharron Oconnor 02/17/2024 2 [employer] BY [facility] (MEDICAID REPLACEMENT - HMO) [id number] Sharron Oconnor [id number] Sharron Oconnor 04/06/2024 1 [facility] (MEDICARE REPLACEMENT/AD VANTAGE - HMO) [id number] Sharron Oconnor [id number] Sharron Oconnor Notes Date Note Type Note Provider Name and Address Organization Details Recorded Time 02/17/2024 text/html Ms. Oconnor is a 73-year-old female who presents to [facility] for abdominal pain and dysphagia. The patient has been found to have likely achalasia on previous cross-sectional imaging and EGD. She did undergo Botox injection previously with Dr. Mackey at [facility] with some improvement. she is accompanied by a caregiver. The caregiver reports that the patient is concerned with right lower quadrant pain that has been ongoing for the past several years. She has had 30-40 emergency department visits without a identifiable etiology identified. Patient most recently underwent colonoscopy in [address] Campbell. Two diminutive polyps and left-sided diverticulosis as well as hemorrhoids were noted. No other findings. Gregory Soriano MD [address], [place], [id number], [facility] - [place] & [place] 02/17/2024 11:15:24 OBGyn Episode No OBEpisode recorded.
--- NOTE | 2024-11-23 13:00 | CT_ITS ---
FINAL REPORT TECHNIQUE: Routine axial images were obtained from the lung apices to below the diaphragm following IV contrast administration. Individualized dose reduction techniques using automated exposure control or adjustment of the mA and/or kV according to the patient size were employed. CLINICAL HISTORY: pulmonary nodule,right COMPARISON: 10/16/2023, 09/28/2023 FINDINGS: CT CHEST: There is a left upper anterior chest wall pacemaker noted which produces slight streak artifact. A midline sternotomy has been performed. There is a right middle lobe nodule, 4 mm in size, best seen on image #46 of series 2, stable. There are smaller posterior right middle lobe nodules best seen on images #49 - 51. These are less well-visualized than seen on the prior CTs. There is a partially calcified peripherally enhancing density in the liver, measuring 2.4 cm in size, unchanged from the prior exam, that may represent a hemangioma. There are several other smaller low-density is noted in the liver, that may also represent hemangiomas. There is a moderate size hiatal hernia noted, with a paraesophageal component that appears larger than that seen on the prior exam of 2023. IMPRESSION: Pulmonary nodules are stable or somewhat smaller than those seen on the prior CTs of September and October 2023. Partially calcified peripherally enhancing focus in the liver, likely represents a hemangioma, also unchanged from the prior exam. A moderate-sized hiatal hernia is noted, with a paraesophageal component that appears larger than seen on the prior exam. Reviewed, Interpreted and Dictated by Ryan Lomeli MD Transcribed by Darling Hernandez Authenticated and [facility]
[2024-11-23 13:07] LABS: Blood Urea Nitrogen 21 mg/dl (7-17); Estimated Glomerular Filt Rate 70 ml/min (>60); GFR (African American) 85 ML/MIN (>60)
[2024-11-23] MEDS: SODIUM CHLORIDE 0.9% 10ML SYR (RAD ONLY) 10 ML IV (13:52)
[2024-11-23] MEDS: IOPAMIDOL-370 (76%);100ML BOTTLE 75 ML IV (13:52)
== END 2024-11-23 23:59 | disposition home or self-care (01) ==
LOC: RAD 12:38
PROVIDERS: PCP Internal Medicine; Visit Provider Physician Assistant
DX: R91.1 Solitary pulmonary nodule (principal); R07.89 Other chest pain
CPT/HCPCS: 36415; 71260; 82565; 84520; Q9967

== ENCOUNTER 2025-01-03 10:51 | Emergency (ER) | payer MEDICARE, OTHER, SELFPAY ==
[2025-01-03 10:52] VITALS: BP 168/74; PULSE 59; RESP 17; TEMP 37.1; O2SAT 97; BMI 23.8
--- NOTE | 2025-01-03 10:54 | ED_ITS ---
Discharge Plan Disposition Patient Disposition: Home, Self-Care Prescriptions Prescriptions: New benzonatate 200 mg capsule 200 mg PO TID PRN (Reason: cough) Qty: 20 0RF oseltamivir [Tamiflu] 75 mg capsule 75 mg PO BID 5 Days Qty: 10 0RF No Action isosorbide mononitrate 60 mg tablet extended release 24 hr 60 mg PO DAILY Qty: 90 1RF nitroglycerin 0.3 mg tablet, sublingual 0.3 mg sublingual Q5M PRN (Reason: chest pain) Qty: 20 3RF Rx Instructions: do not exceed 3 doses per episode isosorbide dinitrate 10 mg tablet 10 mg PO TID Qty: 90 12RF Rx Instructions: allow nitrate-free interval of 12-14 hrs per 24-hr period (DME) blood pressure monitor Kit See Rx Instructions .Route Qty: 1 0RF Rx Instructions: As directed polyethylene glycol 3350 [Miralax] 17 gram/dose powder 17 g PO DAILY metoprolol succinate 50 mg tablet extended release 24 hr 50 mg PO BID Qty: 180 1RF furosemide [Lasix] 20 mg tablet 20 mg PO DAILY Qty: 7 0RF Rx Instructions: Take 1 each morning for 7 days. omeprazole 20 mg capsule,delayed release(DR/EC) 20 mg PO DAILY Qty: 90 1RF famotidine 20 mg tablet See Rx Instructions .ROUTE .COMPLEX Qty: 90 3RF Dose Instruction: TAKE ONE TABLET BY MOUTH ONCE A DAY FOR GERD Rx Instructions: TAKE ONE TABLET BY MOUTH ONCE A DAY FOR GERD clopidogrel 75 mg tablet See Rx Instructions .ROUTE .COMPLEX Qty: 90 1RF Dose Instruction: TAKE ONE TABLET BY MOUTH DAY Rx Instructions: TAKE ONE TABLET BY MOUTH DAY quetiapine [Seroquel] 50 mg tablet 50 mg PO HS Qty: 90 1RF metformin 500 mg tablet 500 mg PO BID Qty: 180 1RF atorvastatin 40 mg tablet 40 mg PO DAILY Qty: 90 1RF ondansetron 4 mg tablet,disintegrating 4 mg PO Q8H PRN (Reason: nausea and vomiting) Qty: 30 0RF diazepam 2 mg tablet 2 mg PO TID Qty: 90 2RF venlafaxine 37.5 mg tablet 37.5 mg PO BID Qty: 180 1RF alendronate 70 mg tablet 70 mg PO WEEKLY Qty: 15 3RF fluticasone propionate 50 mcg/actuation spray,suspension 2 spray intranasal DAILY Qty: 16 5RF gabapentin 100 mg capsule See Rx Instructions .ROUTE .COMPLEX Qty: 60 0RF Dose Instruction: TAKE 2 CAPSULES (200 MG) BY MOUTH AT BEDTIME Rx Instructions: TAKE 2 CAPSULES (200 MG) BY MOUTH AT BEDTIME benzonatate 200 mg capsule 200 mg PO TID PRN (Reason: cough) Qty: 30 1RF Probiotic 15 billion cell capsule, sprinkle 1 cap PO DAILY 30 Days Qty: 30 0RF Rx Instructions: do not crush/chew/cut; swallow whole OR may open and sprinkle in cold drink/food acetaminophen [Tylenol] 325 mg tablet 325 mg PO QID PRN (Reason: pain) Qty: 30 0RF aspirin 81 mg tablet,chewable 81 mg PO DAILY Referrals Follow up/Referrals: Hansel Ruff MD [Primary Care Provider, Medical] - See instructions Clinical Impressions Clinical Impression: Influenza A Instructions Patient Instructions: DI for Influenza -- Adult Print Language Print Language: Malian Discharge ED Provider: Lennox Conrad General Adult HPI <Shari Hernadez (ED), HOSPITAL LIBRARIAN - Last Filed: 01/03/25 12:23> General Chief complaint: Upper Respiratory Infection Stated complaint: Cough Time Seen by Provider: 01/03/25 10:53 History of Present Illness HPI narrative: 74-year-old female presents via EMS for cough for 24 hours. She has no sputum production, no fever, chills no nausea no vomiting or diarrhea. Patient wants to make sure she does not have COVID or flu. No other symptoms. Patient appears well. Vitals are stable. Related Data Home Medications ?Medication ?Instructions ?Recorded ?Confirmed aspirin 81 mg chewable tablet 81 mg PO DAILY 07/21/23 12/27/24 polyethylene glycol 3350 17 17 g PO DAILY 11/16/24 gram/dose oral powder (Miralax) Previous Rx's ?Medication ?Instructions ?Recorded omeprazole 20 mg capsule,delayed 20 mg PO DAILY #90 ca ps 05/15/24 release clopidogrel 75 mg tablet See Rx Instructions .Route 1 08/13/23 .COMPLEX #90 tabs famotidine 20 mg tablet See Rx Instructions .Route 1 08/13/23 .COMPLEX #90 tabs quetiapine 50 mg tablet (Seroquel) 50 mg PO HS #90 tab s 12/02/24 lactobacillus combo no.11 15 1 cap PO DAILY 30 days #3 0 caps 06/16/24 billion cell sprinkle capsule (Probiotic) acetaminophen 325 mg tablet 325 mg PO QID PRN pain #30 tabs 07/15/24 (Tylenol) atorvastatin 40 mg tablet 40 mg PO DAILY #90 tabs 07/14 08/05 metformin 500 mg tablet 500 mg PO BID #180 tabs 07/14 08/05 ondansetron 4 mg disintegrating 4 mg PO Q8H PRN nausea and 08/21/24 tablet vomiting #30 tabs blood pressure monitor #1 ea 10/10/24 diazepam 2 mg tablet 2 mg PO TID #90 tabs 5 venlafaxine 37.5 mg tablet 37.5 mg PO BID mood #180 ta bs 11/10/24 isosorbide mononitrate 60 mg 60 mg PO DAILY #90 tabs 0 11/15/24 tablet,extended release 24 hr nitroglycerin 0.3 mg sublingual 0.3 mg sublingual Q5M PRN chest 11/15/24 tablet pain #20 tabs alendronate 70 mg tablet 70 mg PO WEEKLY #15 tabs fluticasone propionate 50 2 spray intranasal DAILY #16 grams 12/11/24 mcg/actuation nasal spray,suspension furosemide 20 mg tablet (Lasix) 20 mg PO DAILY #7 tabs 12/19/24 metoprolol succinate 50 mg 50 mg PO BID #180 tabs 12/10 tablet,extended release 24 hr gabapentin 100 mg capsule See Rx Instructions .Route 0 12/22/24 .COMPLEX #60 caps isosorbide dinitrate 10 mg tablet 10 mg PO TID #90 tab s 12/27/24 benzonatate 200 mg capsule 200 mg PO TID PRN cough #20 caps 01/03/25 benzonatate 200 mg capsule 200 mg PO TID PRN cough #30 caps 01/03/25 oseltamivir 75 mg capsule (Tamiflu) 75 mg PO BID 5 day s #10 caps 01/03/25 Allergies Allergy/AdvReac Type Severity Reaction Status Date / Time codeine (CODEINE) Allergy Unknown WEAK Verified 12/27/24 09:14 hydrochlorothiazide Allergy Unknown I-RASH Verified 12/27/24 09:14 (HYDROCHLOROTHIAZIDE) hydrocodone (HYDROCODONE) Allergy Unknown I-RASH Verified 12/27/24 09:14 metoclopramide Allergy Unknown SLURRED Verified 12/27/24 09:14 (METOCLOPRAMIDE) SPEECH, WEAK nifedipine (NIFEDIPINE) Allergy Unknown I-HIVES Verified 12/27/24 09:14 prazosin (PRAZOSIN) Allergy Unknown ITCHING/WEA Verified 12/27/24 09:14 K triamterene (TRIAMTERENE) Allergy Unknown I-RASH Verified 12/27/24 09:14 PFS <Shari Hernadez (ED), HOSPITAL LIBRARIAN - Last Filed: 01/03/25 12:23> [facility] Disclaimer: The information contained in this section may have been updated after the patient was seen, as this information can be updated by other users. 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 Family History Other Family history of cancer Family history of diabetes mellitus type II Family history of hypertension Family history of myocardial infarction Social History Smoking Status: Never smoker second hand exposure: Yes alcohol intake: never substance use type: denies use current occupational status: retired and disabled Travel in the last 8 weeks?: None household members: none housing: apartment lives independently: Yes marital status: single education level: middle school service: No long-term: No current occupational exposures/hazards: No caffeine: No do you feel safe at home: Yes victim of physical abuse: No victim of emotional abuse: No victim of sexual abuse: No would you like helpful sources: No Have you lived/traveled outside US in past 30 days?: No Contact w/someone who lives/traveled outside US past 30 days?: No Exposure to someone with infectious disease in past 14 days?: No Do you have a fever (greater than 100.4 F or 38 C)?: No Have you tested positive for COVID-19?: No Exposed to someone with COVID-19 in past 14 days?: No Do you have a sore throat?: No Do you have a cough?: Yes Do you have any weakness?: No Do you have any diarrhea?: No Are you experiencing any unusual bleeding?: No Do you have any muscle aches/pain?: No Do you have any abdominal pain?: No Are you experiencing loss of taste or smell?: No Other Medical History Have you received the Flu Vaccine for this season: No Have you received the Pneumonia Vaccine: Yes <Shari Hernadez (ED), HOSPITAL LIBRARIAN - Last Filed: 01/03/25 12:23> ROS Obtained: Yes Systems reviewed as appropriate & no additional complaints except as documented Constitutional Constitutional: Reports as per HPI Physical Exam <Shari Hernadez (ED), HOSPITAL LIBRARIAN - Last Filed: 01/03/25 12:23> General General appearance: alert and in no apparent distress Head Head exam: atraumatic and normocephalic Eye Eye exam: Present normal appearance, PERRL and EOMI ENT ENT exam: Present normal oropharynx and mucous membranes moist Neck Neck exam: Present full ROM and trachea midline Respiratory Respiratory exam: Present normal lung sounds bilaterally Cardiovascular Cardiovascular exam: Present regular rate, normal rhythm, normal heart sounds, +S1 and +S2 Abdominal Exam Abdominal exam: Present soft and normal bowel sounds Extremities Exam Extremities exam: Present normal inspection, full ROM and normal capillary refill Neurological Exam Neurological exam: Present alert, oriented X3 and normal gait Skin Skin exam: Present warm, dry and intact Medical Decision Making <Shari Hernadez (ED), HOSPITAL LIBRARIAN - Last Filed: 01/03/25 12:23> Medical Records Medical records reviewed: Yes I reviewed the patient's medical records. Screening: Per USPSTF and CDC recommendations, given the prevalence of disease in our region, it is our hospital?s policy to screen for HIV and viral Hepatitis for all patients aged 18 and over and those with ongoing risk factors. Chet Inquiry Pt receiving controlled substance: No Chet was queried for this patient: No Vital Signs: 01/03/25 10:52 01/03/25 10:52 01/03/25 11:00 Temperature 98.7 F 98.7 F Temperature Source Oral Oral Pulse Rate 59 L Pulse Rate [Right] 59 L Respiratory Rate 17 17 Blood Pressure 168/74 H 167/71 H Blood Pressure [Right Arm] 168/74 H Blood Pressure Mean [Right Arm] 105 Blood Pressure Source Automatic Cuff Blood Pressure Source [Right Arm] Automatic Cuff Blood Pressure Position Supine Blood Pressure Position [Right Arm] Supine 02 Sat by Pulse Oximetry 97 97 95 Oxygen Delivery Method Room Air Room Air 01/03/25 11:30 01/03/25 12:10 Temperature 98.0 F Temperature Source Pulse Rate 63 63 Pulse Rate [Right] Respiratory Rate 16 Blood Pressure 157/69 H 175/74 H Blood Pressure [Right Arm] Blood Pressure Mean [Right Arm] Blood Pressure Source Blood Pressure Source [Right Arm] Blood Pressure Position Blood Pressure Position [Right Arm] 02 Sat by Pulse Oximetry 99 Oxygen Delivery Method Lab Data Lab Results 01/03/25 10:50: SARS-CoV-2 (PCR) Not detected, Influenza A Untype (PCR) Detected A, Influenza Type B (PCR) Not detected Orders (Tests/Meds): ED MEDICATIONS Discontinued Medications Generic Name Dose Route Start Last Admin Trade Name Freq PRN Reason Stop Dose Admin Benzonatate 200 mg 01/03/25 11:00 01/03/25 11:12 Benzonatate 100mg Capsule PO 01/03/25 11:01 200 mg ONCE ONE Administration ORDERS Category Date Time Status XR chest portable Stat Exams 01/03/25 10:59 Completed Rapid PCR Covid and Flu A/B Stat Lab 01/03/25 10:50 Completed Medical Decision Narrative: patient is a 74-year-old female presenting to the emergency department for evaluation of nonproductive cough for the last 24 hours. Patient is hemodynamically stable and nontoxic-appearing upon arrival, afebrile. Differential diagnosis includes viral illness, COVID, flu among others. Workup will be conducted with hematologic labs, specific imaging. Initial inventions include something for cough. Initial workup reviewed by dc hematologic labs are remarkable for positive flu. Patient given instructions and will be sent home. Safe for discharge home. Discussed case with Dr. Conrad <Lennox Conrad MD - Last Filed: 01/03/25 12:35> Vital Signs: 01/03/25 10:52 01/03/25 10:52 01/03/25 11:00 Temperature 98.7 F 98.7 F Temperature Source Oral Oral Pulse Rate 59 L Pulse Rate [Right] 59 L Respiratory Rate 17 17 Blood Pressure 168/74 H 167/71 H Blood Pressure [Right Arm] 168/74 H Blood Pressure Mean [Right Arm] 105 Blood Pressure Source Automatic Cuff Blood Pressure Source [Right Arm] Automatic Cuff Blood Pressure Position Supine Blood Pressure Position [Right Arm] Supine 02 Sat by Pulse Oximetry 97 97 95 Oxygen Delivery Method Room Air Room Air 01/03/25 11:30 01/03/25 12:10 Temperature 98.0 F Temperature Source Pulse Rate 63 63 Pulse Rate [Right] Respiratory Rate 16 Blood Pressure 157/69 H 175/74 H Blood Pressure [Right Arm] Blood Pressure Mean [Right Arm] Blood Pressure Source Blood Pressure Source [Right Arm] Blood Pressure Position Blood Pressure Position [Right Arm] 02 Sat by Pulse Oximetry 99 Oxygen Delivery Method Lab Data Lab Results 01/03/25 10:50: SARS-CoV-2 (PCR) Not detected, Influenza A Untype (PCR) Detected A, Influenza Type B (PCR) Not detected Orders (Tests/Meds): ED MEDICATIONS Discontinued Medications Generic Name Dose Route Start Last Admin Trade Name Freq PRN Reason Stop Dose Admin Benzonatate 200 mg 01/03/25 11:00 01/03/25 11:12 Benzonatate 100mg Capsule PO 01/03/25 11:01 200 mg ONCE ONE Administration ORDERS Category Date Time Status XR chest portable Stat Exams 01/03/25 10:59 Completed Rapid PCR Covid and Flu A/B Stat Lab 01/03/25 10:50 Completed Medical Decision Narrative: patient is a 74-year-old female presenting to the emergency department for evaluation of nonproductive cough for the last 24 hours. Patient is hemodynamically stable and nontoxic-appearing upon arrival, afebrile. Differential diagnosis includes viral illness, COVID, flu among others. Workup will be conducted with hematologic labs, specific imaging. Initial inventions include something for cough. Initial workup reviewed by me hematologic labs are remarkable for positive flu. Patient given instructions and will be sent home. Safe for discharge home. Discussed case with Dr. Conrad I was consulted by the [place], and we discussed the complexity of the problems being addressed. I approved the treatment and management plan for this patient's care in the Emergency Department, thus performing a substantive portion of the medical decision making. Lennox Conrad MD Critical Care <Shari Hernadez (ED), HOSPITAL LIBRARIAN - Last Filed: 01/03/25 12:23> Critical Care Time Critical Care Time: No
--- NOTE | 2025-01-03 10:59 | XR_ITS ---
FINAL REPORT CLINICAL HISTORY: cough COMPARISON: 09/13/2024 FINDINGS: No acute pulmonary opacity is present. There is no evidence of effusion or pneumothorax. Patient is status post CABG and aortic valve repair. Left-sided pacer is identified. Heart size is normal. IMPRESSION: No acute abnormality. Reviewed, Interpreted and Dictated by Monisha Shi MD Transcribed by Tana Anderson Authenticated and . [facility]
[2025-01-03 11:00] VITALS: BP 167/71; O2SAT 95
[2025-01-03 11:02] LABS: Coronavirus 19, PCR Not Detected (NotDetected); Influenza B, PCR Not Detected (NotDetected)
[2025-01-03] MEDS: BENZONATATE 100MG CAPSULE 200 MG PO (11:12)
--- OUTSIDE RECORDS SUMMARY | 2025-01-03 11:18 | XMS_ITS | Clinical Summary ---
Author Organization [facility] Address [address] [place] [address] Care Team Providers Care Teleserv[employer] Representative Name Role Phone Hansel Ruff MD Primary Care Provider [phone] Allergies Active Allergy Reactions Criticality Noted Date Comments Codeine Rash Medium 03/28/2018 Hydrochlorothiazide Rash,Unknown - Patie nt states they do not know rxn details Low 01/24/2018 Hydrocodone Rash Medium 10/06/2023 Hydrocodone-Acetaminophen Rash Medium 03/28/2018 Metoclopramide Headache,Unknown - P atient states they do not know rxn details Low 08/25/2016 Nifedipine Rash,Unknown - Patie nt states they do not know rxn details Low 08/25/2016 Prazosin Rash,Unknown - Patie nt states they do not know rxn details Low 01/24/2018 Triamterene Rash Low 10/06/2023 Medications omeprazole (PriLOSEC) [address] capsule Take 1 capsule (20 mg) by mouth 2 (two) times a day. Take 20 mg by mouth twice daily for 7 days, then take 20 daily until follow up. Do not crush or chew. 40 capsule 1 02/26/2024 Active amLODIPine (Norvasc) 5 MG tablet 12/03/2023 Active ASPIRIN 81 MG chewable tablet 07/21/2023 Act mally atorvastatin (Lipitor) 40 MG tablet 07/21/2023 Active clopidogrel (Plavix) 75 MG tablet Active diazePAM (Valium) 2 MG tablet 07/16/2016 Active famotidine (Pepcid) 20 MG tablet 07/21/2023 Active gabapentin (Neurontin) 100 MG capsule 07/21/2023 Active isosorbide mononitrate ER (Imdur) 30 MG 24 hr tablet 07/21/2023 Active metFORMIN (Glucophage) 500 MG tablet Active metoprolol succinate XL (Toprol-XL) 50 MG 24 hr tablet 10/11/2023 Act mally QUEtiapine (SEROquel) 50 MG tablet 01/24/2018 Active venlafaxine (Effexor) 37.5 MG tablet 07/30/2016 Active Linzess 72 MCG capsule capsule 04/11/2024 Act mally Active Problems Problem Noted Date Diagnosed Date Diverticulitis 03/16/2024 Colitis 03/16/2024 Blood loss anemia 03/16/2024 Carotid artery stenosis 03/16/2024 CHF exacerbation 03/16/2024 Femur fracture, left 03/16/2024 Headache 03/16/2024 Hemangioma of liver 03/16/2024 Hypodense mass of liver 03/16/2024 Osteoarthritis of right knee 03/16/2024 Primary osteoarthritis of left knee 03/16/2024 History of mechanical aortic valve replacement 0 03/16/2024 Trochanteric bursitis of left hip 03/16/2024 Typical angina 03/16/2024 Epigastric pain 02/21/2024 Chronic abdominal pain 01/25/2024 Gastro-esophageal reflux disease without esophag itis 01/25/2024 Gastroparesis 01/25/2024 Hypertensive heart disease 01/25/2024 Pure hypercholesterolemia, unspecified Type 2 diabetes mellitus without complications 0 01/25/2024 Constipation 12/16/2023 Candidiasis of skin and nail 12/09/2023 Acute UTI (urinary tract infection) 12/04/2023 Elevated blood-pressure read ing, without diagnosis of hypertension 12/04/2023 Chest pain 12/02/2023 Achalasia 11/17/2023 Adult failure to thrive 11/03/2023 Presence of aortocoronary bypass graft 4 Polyp of colon 10/23/2023 Dysphagia 10/16/2023 Hepatomegaly, not elsewhere classified Nausea with vomiting, unspecified 10/16/2023 Hiatal hernia 10/06/2023 Acute hyperkalemia 07/21/2023 MAX (acute kidney injury) 07/21/2023 Cardiac pacemaker in situ 07/21/2023 Acute blood loss as cause of postoperative anemi a 04/20/2018 Sick sinus syndrome 03/10/2018 Coronary artery disease 01/26/2018 S/P CABG x 1 01/26/2018 Aortic stenosis 01/24/2018 Heart murmur 01/24/2018 Diabetes 08/25/2016 Hyperlipidemia 08/25/2016 Hypertension 08/25/2016 Lung nodule 08/25/2016 Immunizations Immunization Administration Dates Next Due Influenza, High-dose, Split Virus, Trivalent, Injectable, preservative free 03/25/2020,03/22/2019,03/18/2018,03/26,03/13/2015 Influenza, seasonal, injectable 03/15/2009,05/10 Influenza, seasonal, injecta ble, preservative free 02/23/2011 Influenza, trivalent, adjuvanted 03/29/2017 Pneumococcal 20-elif Conj Vaccine 05/17/2023 Pneumococcal Conjugate PCV 13 02/07/2016, 015 Pneumococcal Polysaccharide PPV23 04/29/2017 Family History Medical History Relation Name Comments Cardiac disorder Father Prostate cancer Father Diabetes Mother Relation Name Status Comments Father Mother Social History Tobacco Use Types Packs/Day Years Used Date Smoking Tobacco: Never Passive Smoke Exposure: Never Smokeless Tobacco: Never Tobacco Cessation:Counseling Given: Not Answered Alcohol Use Standard Drinks/Week Comments No 0 (1 standard drink = 0.6 oz pur e alcohol) PHQ-2 Answer Date Recorded Patient Health Questionnaire-2 Score 0 04/13/2024 Comments No Sex and Gender Information Value Date Recorded Sex Assigned at Not on file Legal Sex Female 8:54 PM EDT Gender Identity Not on file Sexual Orientation Not on file Last Filed Vital Signs Vital Sign Reading Time Taken Comments Blood Pressure 156/82 04/13/2024 1:17 PM EDT Pulse 65 04/13/2024 1:17 PM EDT Temperature 36.4 C (97.5 F) 04/13/2024 1:17 PM EDT Respiratory Rate 16 04/13/2024 1:17 PM EDT Oxygen Saturation 99% 04/13/2024 1:17 PM EDT Inhaled Oxygen Concentration - - Weight 53.8 kg (118 lb 11.2 oz) 04/13/2024 1:17 PM EDT Height 152.4 cm (5') 04/13/2024 1:17 PM EDT Body Mass Index 23.18 04/13/2024 1:17 PM EDT Plan of Treatment Health Maintenance Due Date Last Done Comments [facility]-Bone Density Scan 1950 [facility]-Medicare Annual Wellness (AWV) 1950 [facility]-/Child/Adol SDOH Screenings 1950 Diabetes: Dental Exam 1958 [facility]- SDOH Screenings 1966 [facility]-Adult SDOH Screenings 1966 [facility]-DTaP,Tdap,and Td Vaccines (1 - Tdap) 12/15/1967 [facility]-Hepatitis A Vaccines (1 of 2 - Risk 2-dose series) 12/15/1967 [facility]-Zoster Vaccines (1 of 2) 1998 [facility]-Diabetes: Hemoglobin A1C 09/25/2018 03/28/2018 [facility]-RSV Vaccine: 60+ Years or (1 - 1-dose 75+ series) 12/15/2023 [id number] Vaccine ( season) 2024 [facility]-Influenza Vaccine (Season Ended) 2025 03/25/2020, 03/22/2019, 03/18/2018, Additional history exists [facility]-Depression Screening 04/13/2025 04/13/2024 [facility]-Pneumococcal Vaccine: 50+ Years Completed 05/17/2023, 04/29/2017, 02/07/2016, Additional history exists [facility]-Hepatitis C Screening Completed 02/26/2024 HPV Vaccines Aged Out No longer eligi ble based on patient's age to complete this topic [facility]-HIB Vaccines Aged Out No longer e ligible based on patient's age to complete this topic [facility]-IPV Vaccines Aged Out No longer e ligible based on patient's age to complete this topic [facility]-Rotavirus Vaccines Aged Out No lo nger eligible based on patient's age to complete this topic Procedures Procedure Name Priority Date/Time Associated Diagnosis Comments HEPATITIS C ANTIBODY - ED W/REFLEX TO HCV QUANT PCR STAT 02/26/2024 3:10 PM EDT HEMOGLOBIN A1C Routine 03/28/2018 3:57 PM EDT from Last 3 Months or Most Recently Relevant to Health Maintenance Results * Hepatitis C Antibody - ED (02/26/2024 3:10 PM EDT) Hepatitis C Antibody Negative Negative 02/26/2024 3:58 PM EDT [facility] Blood Venous blood specimen / Unknown Venipuncture / Unknown 02/26/2024 3:10 PM EDT 02/26/2024 3:22 PM EDT us Edgar Silver APRN LAB BLOOD ORDERABLES Final Re sult [facility] [address] [place] [address] * (ABNORMAL) Hemoglobin A1c (03/28/2018 3:57 PM EDT) Hemoglobin A1c 6.2(H) 4.7 - 6.0 % [facility] Comment: Glycohemoglobin Reference Range, 0 years and up: 4.7 to 6.0% . HA1C Interpretive Data: Diagnosis of Diabetes: Diabetic > or = 6.5% Pre-diabetic 5.7 to 6.4% Non-diabetic < or = 5.6% . Glycemic Targets for Type I and Type II Diabetics: Non- Adults <7.0% Adults <6.0% Children and Adolescents <7.5% . Source: [place] [employer]. Standards of medical care in diabetes, 2017. Diabetes Care.2017:40 (suppl 1):S1-S135. . HbA1c assay performed by an ion-exchange chromatography method that is certified traceable to the DCCT. 03/28/2018 3:57 PM EDT 03/28/2018 4:27 PM EDT us Rosario VALERO LAB BLOOD ORDERABLES Final Result [facility] from Last 3 Months or Most Recently Relevant to Health Maintenance Insurance [facility] MEDICARE [facility] MEDICAID Care Teams Teleserv[employer] Representative Relationship Specialty Start Date End Date Hansel Ruff MD [address] [place] [address] [address] [place] [address] PCP - General 02/26/24
--- OUTSIDE RECORDS SUMMARY | 2025-01-03 11:18 | XMS_ITS | Data Portability ---
Author Organization [place] [facility] THEO Cramer ADMIN Address [address] [place] [id number] Assessment Encounter Date Assessment Date Assessment LastModified [...] Address Organization Details Last Updated DateTime 4 96767.1 8 g 22.3 kg/m2 154.94 cm 97.9 [degF] 75 /min 77 /min 98 % 98 % 160 mm[Hg] 84 mm[Hg] [facility] [place] [facility] [place] 10:49:58 Social History None recorded. Functional Status None recorded. Mental Status None recorded. Family History Nothing Reported. Medical History No medical history recorded. Gynecological HistoryNo gynecological history recorded. Obstetrics History GPAL:G 0 P 0 0 0 0 Past Encounters Encounter ID Performer Location Encounter Start Date Encounter Closed Date Diagnosis/Indication Diagnosis SNOMED-CT Code Diagnosis ICD10 Code Diagnosis Note [id number] Gregory Soriano MD [facility] [address] [address] 02/17/2024 10:16:49 02/17/2024 11:24:06 Abdominal pain 27085407 R10.9 Achalasia of esophagus 39261312 K22.0 Dysphagia 22858472 R13.1 0 Health Concerns Section Related Observation LastModified by Organization Detai ls LastModified Time None Recorded Concern Status LastModified by Organization Details LastModified Time None Recorded Advance Directives Directive None Recorded Payers Insurance Date Sequence Insurance Name Policy Number Policy Piper Covered Member ID Piper Member ID Guarantor Name 02/17/2024 2 [place] Sharron Hankins Elvin [id number] Sharron Hankins Elvin 02/17/2024 2 [facility] (MEDICAID HMO) Sharronlaurita Oconnor [id number] Sharronlaurita Oconnor 02/17/2024 2 [facility] (MEDICAID REPLACEMENT - HMO) [id number]_[id number] Sharron Oconnor [id number] Sharron Cr Elvin 04/06/2024 1 [facility] (MEDICARE REPLACEMENT/AD VANTAGE - HMO) [id number] Sharron Hankins Elvin [id number] Sharron Cr Oconnor Notes Date Note Type Note Provider Name and Address Organization Details Recorded Time 02/17/2024 text/html Ms. Oconnor is a 73-year-old female who presents to [facility] for abdominal pain and dysphagia. The patient has been found to have likely achalasia on previous cross-sectional imaging and EGD. She did undergo Botox injection previously with Dr. Mackey at [facility] with some improvement. she is accompanied [...] noted. No other findings. Gregory Soriano MD [address], [place], [address], [facility] - [place] & [place] 02/17/2024 11:15:24 OBGyn Episode No OBEpisode recorded.
[2025-01-03 11:30] VITALS: BP 157/69; PULSE 63; O2SAT 99
[2025-01-03 11:32] LABS: Influenza A, PCR Detected (NotDetected)
--- NOTE | 2025-01-03 11:59 | PC.NURSE ---
call made to [facility]. TRN spoke with melinda and he will get someone up here shortly.
[2025-01-03 12:10] VITALS: BP 175/74; PULSE 63; RESP 16; TEMP 36.7; O2SAT 98
== END 2025-01-03 12:11 | disposition home or self-care (01) ==
PROVIDERS: Nurse Practitioner; Emergency Provider Emergency Medicine; PCP Internal Medicine
DX: J10.1 Influenza due to other identified influenza virus with other respiratory manifestations (principal)
CPT/HCPCS: 71045; 87636; 99283

== ENCOUNTER 2025-01-05 08:16 | Emergency (ER) | payer MEDICARE, OTHER, SELFPAY ==
[2025-01-05 08:27] VITALS: BP 151/79; PULSE 69; RESP 14; TEMP 36.4; O2SAT 99; BMI 23.8
[2025-01-05 08:30] VITALS: BP 146/71; PULSE 68; O2SAT 99
[2025-01-05 08:34] VITALS: TEMP 36.4
--- NOTE | 2025-01-05 08:35 | PC.NURSE ---
call made to [facility] for transportation home for pt. TRN spoke with Martha and she stated that she would work on pt ride home.
--- OUTSIDE RECORDS SUMMARY | 2025-01-05 08:35 | XMS_ITS | Data Portability ---
Author Organization [place] - [facility] THEO Cramer ADMIN Address [address] [place] [id number] Assessment Encounter Date Assessment Date Assessment LastModified [...] Address Organization Details Last Updated DateTime 4 44234.1 8 g 22.3 kg/m2 154.94 cm 97.9 [degF] 75 /min 77 /min 98 % 98 % 160 mm[Hg] 84 mm[Hg] [facility] [place] [facility] [place] 10:49:58 Social History None recorded. Functional Status None recorded. Mental Status None recorded. Family History Nothing Reported. Medical History No medical history recorded. Gynecological HistoryNo gynecological history recorded. Obstetrics History GPAL:G 0 P 0 0 0 0 Past Encounters Encounter ID Performer Location Encounter Start Date Encounter Closed Date Diagnosis/Indication Diagnosis SNOMED-CT Code Diagnosis ICD10 Code Diagnosis Note [id number] Gregory Soriano MD [facility] [address] [address] 02/17/2024 10:16:49 02/17/2024 11:24:06 Abdominal pain 99356147 R10.9 Achalasia of esophagus 22625386 K22.0 Dysphagia 23770502 R13.1 0 Health Concerns Section Related Observation LastModified by Organization Detai ls LastModified Time None Recorded Concern Status LastModified by Organization Details LastModified Time None Recorded Advance Directives Directive None Recorded Payers Insurance Date Sequence Insurance Name Policy Number Policy Piper Covered Member ID Piper Member ID Guarantor Name 02/17/2024 2 [place] Sharron Hankins Elvin [id number] Sharron Hankins Elvin 02/17/2024 2 [facility] (MEDICAID HMO) Sharronlaurita Oconnor [id number] Sharronlaurita Oconnor 02/17/2024 2 [facility] (MEDICAID REPLACEMENT - HMO) [id number]_[id number] Sharron Oconnor [id number] Sharron Cr Elvin 04/06/2024 1 [facility] (MEDICARE REPLACEMENT/AD VANTAGE - HMO) [id number] Sharron Hankins Elvin [id number] Sharron Cr Oconnor Notes Date Note Type Note Provider Name and Address Organization Details Recorded Time 02/17/2024 text/html Ms. Oconnor is a 73-year-old female who presents to [facility] care for abdominal pain and dysphagia. The patient has been found to have likely achalasia on previous cross-sectional imaging and EGD. She did undergo Botox injection previously with Dr. Mackey at [facility] with some improvement. she is accompanied [...] noted. No other findings. Gregory Soriano MD [address], [place], [address], [facility] - [place] & [place] 02/17/2024 11:15:24 OBGyn Episode No OBEpisode recorded.
--- OUTSIDE RECORDS SUMMARY | 2025-01-05 08:35 | XMS_ITS | Clinical Summary ---
Author Organization [facility] Address [address] [place] [address] Care Team Providers Care Armature Tester Name Role Phone Hansel Ruff MD Primary Care Provider [phone] Allergies Active Allergy Reactions Criticality Noted Date [...] or (1 - 1-dose 75+ series) 12/15/2023 [id number] Vaccine ( season) 2024 UKY-Influenza Vaccine (Season [...] ORDERABLES Final Re sult [facility] [address] [place] [address] * (ABNORMAL) Hemoglobin A1c (03/28/2018 3:57 PM [...] <6.0% Children and Adolescents <7.5% . Source: [place] [employer]. Standards of medical care in diabetes, 2017. Diabetes Care.2017:40 (suppl 1):S1-S135. . HbA1c assay performed by an ion-exchange chromatography method that is certified traceable to the DCCT. 03/28/2018 3:57 PM EDT 03/28/2018 4:27 PM EDT us [facility] BLOOD ORDERABLES Final Result SUNQUEST from Last 3 Months or Most Recently Relevant to Health Maintenance Insurance [facility] MEDICARE [facility] MEDICAID Care Teams Armature Tester Relationship Specialty Start Date End Date Hansel Ruff MD [address] [place] [address] [address] [place] [address] PCP - General 02/26/24
[2025-01-05] MEDS: ACETAMINOPHEN 500MG TAB 1000 MG PO (08:36)
--- NOTE | 2025-01-05 08:36 | HMH.EDGENADL ---
Discharge Plan Disposition Patient Disposition: Home, Self-Care Prescriptions Prescriptions: New acetaminophen 500 mg capsule 1,000 mg PO Q8H PRN (Reason: as needed for fever and muscle aches) Qty: 60 0RF No Action isosorbide mononitrate 60 mg tablet extended release 24 hr 60 mg PO DAILY Qty: 90 1RF nitroglycerin 0.3 mg tablet, sublingual 0.3 mg sublingual Q5M PRN (Reason: chest pain) Qty: 20 3RF Rx Instructions: do not exceed 3 doses per episode isosorbide dinitrate 10 mg tablet 10 mg PO TID Qty: 90 12RF Rx Instructions: allow nitrate-free interval of 12-14 hrs per 24-hr period (DME) blood pressure monitor Kit See Rx Instructions .Route Qty: 1 0RF Rx Instructions: As directed polyethylene glycol 3350 [Miralax] 17 gram/dose powder 17 g PO DAILY metoprolol succinate 50 mg tablet extended release 24 hr 50 mg PO BID Qty: 180 1RF furosemide [Lasix] 20 mg tablet 20 mg PO DAILY Qty: 7 0RF Rx Instructions: Take 1 each morning for 7 days. omeprazole 20 mg capsule,delayed release(DR/EC) 20 mg PO DAILY Qty: 90 1RF famotidine 20 mg tablet See Rx Instructions .ROUTE .COMPLEX Qty: 90 3RF Dose Instruction: TAKE ONE TABLET BY MOUTH ONCE A DAY FOR GERD Rx Instructions: TAKE ONE TABLET BY MOUTH ONCE A DAY FOR GERD clopidogrel 75 mg tablet See Rx Instructions .ROUTE .COMPLEX Qty: 90 1RF Dose Instruction: TAKE ONE TABLET BY MOUTH DAY Rx Instructions: TAKE ONE TABLET BY MOUTH DAY quetiapine [Seroquel] 50 mg tablet 50 mg PO HS Qty: 90 1RF metformin 500 mg tablet 500 mg PO BID Qty: 180 1RF atorvastatin 40 mg tablet 40 mg PO DAILY Qty: 90 1RF ondansetron 4 mg tablet,disintegrating 4 mg PO Q8H PRN (Reason: nausea and vomiting) Qty: 30 0RF diazepam 2 mg tablet 2 mg PO TID Qty: 90 2RF venlafaxine 37.5 mg tablet 37.5 mg PO BID Qty: 180 1RF alendronate 70 mg tablet 70 mg PO WEEKLY Qty: 15 3RF fluticasone propionate 50 mcg/actuation spray,suspension 2 spray intranasal DAILY Qty: 16 5RF gabapentin 100 mg capsule See Rx Instructions .ROUTE .COMPLEX Qty: 60 0RF Dose Instruction: TAKE 2 CAPSULES (200 MG) BY MOUTH AT BEDTIME Rx Instructions: TAKE 2 CAPSULES (200 MG) BY MOUTH AT BEDTIME benzonatate 200 mg capsule 200 mg PO TID PRN (Reason: cough) Qty: 30 1RF Probiotic 15 billion cell capsule, sprinkle 1 cap PO DAILY 30 Days Qty: 30 0RF Rx Instructions: do not crush/chew/cut; swallow whole OR may open and sprinkle in cold drink/food acetaminophen [Tylenol] 325 mg tablet 325 mg PO QID PRN (Reason: pain) Qty: 30 0RF aspirin 81 mg tablet,chewable 81 mg PO DAILY benzonatate 200 mg capsule 200 mg PO TID PRN (Reason: cough) Qty: 20 0RF oseltamivir [Tamiflu] 75 mg capsule 75 mg PO BID 5 Days Qty: 10 0RF Referrals Follow up/Referrals: Hansel Ruff MD [Primary Care Provider, Medical] - See instructions Activity Restrictions/Add. Instructions Additional Instructions/Restrictions: At this time it was felt you are safe to be discharged home. If new or worsening symptoms please do not hesitate to return the emergency department. Please take your medications as prescribed and follow-up with your family doctor next week to ensure things are headed in the right direction. Please continue to take your Tamiflu. Clinical Impressions Clinical Impression: Influenza A Print Language Print Language: Georgian Discharge ED Provider: Kamlesh Wei General Adult HPI General Chief complaint: Recheck/Abnormal Lab/Rx Stated complaint: Flu Time Seen by Provider: 01/05/25 08:24 Mode of Arrival: EMS Source of Information: Patient Description of Symptoms (Recalled from ER Triage Doc. by RN): pt presents to ED via EMS for generalized feeling of unwell. pt was diagnosed with flu a on 01/03/25. pt was prescribed tamiflu and benzonatate. pt reports to taking these medications. EMS reports pt had concerns for her heart. upon triage assessment pt denies SOA, CP, n/v/d, abdominal pain, palpitations, irregular heart rate. pt concerned that the flu is contagious, education provided on flu to pt. History of Present Illness HPI narrative: Patient is a 74-year-old female with no pertinent past medical history who was recently diagnosed with influenza A in the emergency department who presents emergency department due to concerns for influenza A. Patient has had symptoms for approximately 4 days. Has been compliant with her Tamiflu. She generally feels unwell however has no acute complaints and was transferred here by 911 because she is concerned that she is contagious and wonders if we could do anything about this. Specifically denies shortness of breath, chest pain, abdominal pain, nausea, vomiting. Please note that above description of symptoms, in this electronic medical record under categorization of recalled from ER triage doctor by RN are reflective of an initial nursing assessment, however, is not reflective of my full history and physical exam that was personally taken and clarified. Consequentially, this preceding description of symptoms, which may include the patient's categorized chief complaint in the EMR, do not reflect my personal clinical impression, and the ultimate description of history of present illness and patient stated complaints should be deferred to this section of the note. Unless stated otherwise or congruent with this section of the note, additional signs, symptoms, or incongruence should be interpreted as inaccurate with my clinical impression. Related Data Home Medications ?Medication ?Instructions ?Recorded ?Confirmed aspirin 81 mg chewable tablet 81 mg PO DAILY 07/21/23 12/27/24 polyethylene glycol 3350 17 17 g PO DAILY 11/16/24 12/27/24 gram/dose oral powder (Miralax) Previous Rx's ?Medication ?Instructions ?Recorded omeprazole 20 mg capsule,delayed 20 mg PO DAILY #90 caps 05/15/24 release clopidogrel 75 mg tablet See Rx Instructions .Route 06/12/24 .COMPLEX #90 tabs famotidine 20 mg tablet See Rx Instructions .Route 06/12/24 .COMPLEX #90 tabs quetiapine 50 mg tablet (Seroquel) 50 mg PO HS #90 tabs 06/12/24 lactobacillus combo no.11 15 1 cap PO DAILY 30 days #30 caps 06/16/24 billion cell sprinkle capsule (Probiotic) acetaminophen 325 mg tablet 325 mg PO QID PRN pain #30 tabs 07/15/24 (Tylenol) atorvastatin 40 mg tablet 40 mg PO DAILY #90 tabs 08/11/24 metformin 500 mg tablet 500 mg PO BID #180 tabs 08/11/24 ondansetron 4 mg disintegrating 4 mg PO Q8H PRN nausea and 08/21/24 tablet vomiting #30 tabs blood pressure monitor #1 ea 10/10/24 diazepam 2 mg tablet 2 mg PO TID #90 tabs 11/10/24 venlafaxine 37.5 mg tablet 37.5 mg PO BID mood #180 tabs 11/10/24 isosorbide mononitrate 60 mg 60 mg PO DAILY #90 tabs 11/15/24 tablet,extended release 24 hr nitroglycerin 0.3 mg sublingual 0.3 mg sublingual Q5M PRN chest 11/15/24 tablet pain #20 tabs alendronate 70 mg tablet 70 mg PO WEEKLY #15 tabs 11/27/24 fluticasone propionate 50 2 spray intranasal DAILY #16 grams 12/11/24 mcg/actuation nasal spray,suspension furosemide 20 mg tablet (Lasix) 20 mg PO DAILY #7 tabs 12/19/24 metoprolol succinate 50 mg 50 mg PO BID #180 tabs 12/19/24 tablet,extended release 24 hr gabapentin 100 mg capsule See Rx Instructions .Route 12/22/24 .COMPLEX #60 caps isosorbide dinitrate 10 mg tablet 10 mg PO TID #90 tabs 12/27/24 benzonatate 200 mg capsule 200 mg PO TID PRN cough #20 caps 01/03/25 benzonatate 200 mg capsule 200 mg PO TID PRN cough #30 caps 01/03/25 oseltamivir 75 mg capsule (Tamiflu) 75 mg PO BID 5 days #10 caps 01/03/25 acetaminophen 500 mg capsule 1,000 mg (2 x 500 mg) PO Q8H PRN 01/05/25 as needed for fever and muscle aches #60 caps Allergies Allergy/AdvReac Type Severity Reaction Status Date / Time codeine (CODEINE) Allergy Unknown WEAK Verified 12/27/24 09:14 hydrochlorothiazide Allergy Unknown I-RASH Verified 12/27/24 09:14 (HYDROCHLOROTHIAZIDE) hydrocodone (HYDROCODONE) Allergy Unknown I-RASH Verified 12/27/24 09:14 metoclopramide Allergy Unknown SLURRED Verified 12/27/24 09:14 (METOCLOPRAMIDE) SPEECH, WEAK nifedipine (NIFEDIPINE) Allergy Unknown I-HIVES Verified 12/27/24 09:14 prazosin (PRAZOSIN) Allergy Unknown ITCHING/WEA Verified 12/27/24 09:14 K triamterene (TRIAMTERENE) Allergy Unknown I-RASH Verified 12/27/24 09:14 [facility] Disclaimer: The information contained in this section may have been updated after the patient was seen, as this information can be updated by other users. 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 Family History Other Family history of cancer Family history of diabetes mellitus type II Family history of hypertension Family history of myocardial infarction Social History Smoking Status: Never smoker second hand exposure: Yes alcohol intake: never substance use type: denies use current occupational status: retired and disabled Travel in the last 8 weeks?: None household members: none housing: apartment lives independently: Yes marital status: single education level: middle school service: No senior care: No current occupational exposures/hazards: No caffeine: No do you feel safe at home: Yes victim of physical abuse: No victim of emotional abuse: No victim of sexual abuse: No would you like helpful sources: No Have you lived/traveled outside US in past 30 days?: No Contact w/someone who lives/traveled outside US past 30 days?: No Exposure to someone with infectious disease in past 14 days?: Yes Do you have a fever (greater than 100.4 F or 38 C)?: No Have you tested positive for COVID-19?: No Exposed to someone with COVID-19 in past 14 days?: No Do you have a sore throat?: No Do you have a cough?: No Do you have any weakness?: No Do you have any diarrhea?: No Are you experiencing any unusual bleeding?: No Do you have any muscle aches/pain?: No Do you have any abdominal pain?: No Are you experiencing loss of taste or smell?: No Other Medical History Have you received the Flu Vaccine for this season: No Have you received the Pneumonia Vaccine: Yes ROS Obtained: Yes Systems reviewed as appropriate & no additional complaints except as documented Physical Exam General General appearance: alert and in no apparent distress Head Head exam: atraumatic and normocephalic Eye Eye exam: Present PERRL and EOMI ENT ENT exam: Present mucous membranes moist Neck Neck exam: Present normal inspection Chest Chest inspection: Present normal inspection and symmetric chest wall rise Respiratory Respiratory exam: Present normal lung sounds bilaterally; Absent respiratory distress Cardiovascular Cardiovascular exam: Present regular rate and normal rhythm Abdominal Exam Abdominal exam: Present soft; Absent tenderness Extremities Exam Extremities exam: Present normal inspection Neurological Exam Neurological exam: Present alert and CN II-XII intact Psychiatric Psychiatric exam: Present normal affect Skin Skin exam: Present warm and dry Medical Decision Making Medical Records Screening: Per USPSTF and CDC recommendations, given the prevalence of disease in our region, it is our hospital?s policy to screen for HIV and viral Hepatitis for all patients aged 18 and over and those with ongoing risk factors. Chet Inquiry Pt receiving controlled substance: No Vital Signs: 01/05/25 08:27 01/05/25 08:30 01/05/25 08:34 Temperature 97.6 F 97.6 F Temperature Source Oral Oral Pulse Rate 68 Pulse Rate [Left Radial] 69 Respiratory Rate 14 Blood Pressure 146/71 H Blood Pressure [Right Arm] 151/79 H Blood Pressure Mean [Right Arm] 103 02 Sat by Pulse Oximetry 99 99 Oxygen Delivery Method Room Air Orders (Tests/Meds): ED MEDICATIONS Discontinued Medications Generic Name Dose Route Start Last Admin Trade Name Freq PRN Reason Stop Dose Admin Acetaminophen 1,000 mg 01/05/25 08:31 Acetaminophen 500mg Tab PO 01/05/25 08:32 ONCE ONE Medical Decision Narrative: In summary patient is 74-year-old female with past medical history described above presents emergency department for evaluation of influenza A that is known. Patient is hemodynamically stable nontoxic-appearing upon arrival, afebrile saturating 99% on room air no tachycardia no significant respiratory distress clear to auscultation all lung mahmood, no abdominal tenderness no real acute complaints. I discussed with her that influenza is indeed contagious and there is not a whole lot we can do during the acute phase to limit her transmission medically however she should wash her hands and limit coughing close to contacts. Workable labs and imaging was considered but will be deferred for reasons described above. Initial inventions include Tylenol and patient will be discharged with a course of Tylenol follow-up with her family doctor next week was given return precautions. Planer Operator / Grader disclaimer Much of this encounter note is an electronic carpenter assistant spoken language to printed text. Electronic carpenter assistant of the spoken language may permit errors. Although I have reviewed the note, some errors may still exist. Critical Care Critical Care Time Critical Care Time: No
--- NOTE | 2025-01-05 08:40 | PC.NURSE ---
pt assisted to bathroom
[2025-01-05 08:46] VITALS: PULSE 71; O2SAT 95
[2025-01-05 09:23] VITALS: BP 146/71; PULSE 67; RESP 13; TEMP 36.4; O2SAT 98
== END 2025-01-05 09:24 | disposition home or self-care (01) ==
PROVIDERS: Emergency Provider Emergency Medicine; PCP Internal Medicine
DX: J10.1 Influenza due to other identified influenza virus with other respiratory manifestations (principal); K21.9 Gastro-esophageal reflux disease without esophagitis; F41.9 Anxiety disorder, unspecified; I10 Essential (primary) hypertension
CPT/HCPCS: 99283

== ENCOUNTER 2025-01-06 09:42 | Emergency (ER) | payer MEDICARE, OTHER, SELFPAY ==
[2025-01-06 09:43] VITALS: BP 127/58; PULSE 69; O2SAT 99
[2025-01-06 09:46] VITALS: BP 127/58; PULSE 65; RESP 16; TEMP 36.2; O2SAT 98; BMI 23.0
--- OUTSIDE RECORDS SUMMARY | 2025-01-06 09:47 | XMS_ITS | Clinical Summary ---
Author Organization [facility] Address [address] [place] [address] Care Team Providers Care Field Control Inspector Name Role Phone Hansel Ruff MD Primary Care Provider [phone] Allergies Active Allergy Reactions Criticality Noted Date [...] or (1 - 1-dose 75+ series) 12/15/2023 [id number] Vaccine ( season) 2024 UKY-Influenza Vaccine (Season [...] ORDERABLES Final Re sult [facility] [address] [place] [address] * (ABNORMAL) Hemoglobin A1c (03/28/2018 3:57 PM [...] <6.0% Children and Adolescents <7.5% . Source: [place] [employer]. Standards of medical care in diabetes, 2017. Diabetes Care.2017:40 (suppl 1):S1-S135. . HbA1c assay performed by an ion-exchange chromatography method that is certified traceable to the DCCT. 03/28/2018 3:57 PM EDT 03/28/2018 4:27 PM EDT us [facility] BLOOD ORDERABLES Final Result SUNQUEST from Last 3 Months or Most Recently Relevant to Health Maintenance Insurance [facility] MEDICARE [facility] MEDICAID Care Teams Field Control Inspector Relationship Specialty Start Date End Date Hansel Ruff MD [address] [place] [address] [address] [place] [address] PCP - General 02/26/24
--- OUTSIDE RECORDS SUMMARY | 2025-01-06 09:47 | XMS_ITS | Data Portability ---
Author Organization [place] - [facility] - [facility] THEO Cramer ADMIN Address [address] [place] [address] Assessment Encounter Date Assessment Date Assessment LastModified [...] Address Organization Details Last Updated DateTime 4 45864.1 8 g 22.3 kg/m2 154.94 cm 97.9 [degF] 75 /min 77 /min 98 % 98 % 160 mm[Hg] 84 mm[Hg] [facility] [place] 10:49:58 Social History None recorded. Functional Status None recorded. Mental Status None recorded. Family History Nothing Reported. Medical History No medical history recorded. Gynecological HistoryNo gynecological history recorded. Obstetrics History GPAL:G 0 P 0 0 0 0 Past Encounters Encounter ID Performer Location Encounter Start Date Encounter Closed Date Diagnosis/Indication Diagnosis SNOMED-CT Code Diagnosis ICD10 Code Diagnosis Note [id number] Gregory Soriano MD [facility] [address] [address] 02/17/2024 10:16:49 02/17/2024 11:24:06 Abdominal pain 15622239 R10.9 Achalasia of esophagus 47061159 K22.0 Dysphagia 89524116 R13.1 0 Health Concerns Section Related Observation LastModified by Organization Detai ls LastModified Time None Recorded Concern Status LastModified by Organization Details LastModified Time None Recorded Advance Directives Directive None Recorded Payers Insurance Date Sequence Insurance Name Policy Number Policy Piper Covered Member ID Piper Member ID Guarantor Name 02/17/2024 2 [place] Sharron Hankins Elvin [id number] Sharron Hankins Elvin 02/17/2024 2 [facility] (MEDICAID HMO) Sharronlaurita Oconnor [id number] Sharronlaurita Oconnor 02/17/2024 2 [facility]SPORT BY [facility] (MEDICAID REPLACEMENT - HMO) [id number] Sharron Oconnor [id number] Sharron Cr Elvin 04/06/2024 1 [facility] (MEDICARE REPLACEMENT/AD VANTAGE - HMO) [id number] Sharron Hankins Elvin [id number] Sharron Cr Oconnor Notes Date Note Type Note Provider Name and Address Organization Details Recorded Time 02/17/2024 text/html Ms. Oconnor is a 73-year-old female who presents to [facility] care for abdominal pain and dysphagia. The patient has been found to have likely achalasia on previous cross-sectional imaging and EGD. She did undergo Botox injection previously with Dr. Mackey at [facility] with some improvement. she is accompanied by [...] noted. No other findings. Gregory Soriano MD [address], [place], [address], [facility] - [place] & [place] 02/17/2024 11:15:24 OBGyn Episode No OBEpisode recorded.
[2025-01-06 10:00] VITALS: BP 137/64; PULSE 64; O2SAT 99
[2025-01-06 10:40] VITALS: BP 147/71; PULSE 63; O2SAT 100
--- NOTE | 2025-01-06 10:43 | HMH.EDGENADL ---
Discharge Plan Disposition Patient Disposition: Home, Self-Care Prescriptions Prescriptions: New loperamide 2 mg capsule 2 mg PO Q6H PRN (Reason: loose stool) 5 Days Qty: 20 0RF Rx Instructions: Please take 4 mg initially, followed by 2 mg after each loose stool, maximum 16 mg/day No Action isosorbide mononitrate 60 mg tablet extended release 24 hr 60 mg PO DAILY Qty: 90 1RF nitroglycerin 0.3 mg tablet, sublingual 0.3 mg sublingual Q5M PRN (Reason: chest pain) Qty: 20 3RF Rx Instructions: do not exceed 3 doses per episode isosorbide dinitrate 10 mg tablet 10 mg PO TID Qty: 90 12RF Rx Instructions: allow nitrate-free interval of 12-14 hrs per 24-hr period (DME) blood pressure monitor Kit See Rx Instructions .Route Qty: 1 0RF Rx Instructions: As directed polyethylene glycol 3350 [Miralax] 17 gram/dose powder 17 g PO DAILY metoprolol succinate 50 mg tablet extended release 24 hr 50 mg PO BID Qty: 180 1RF furosemide [Lasix] 20 mg tablet 20 mg PO DAILY Qty: 7 0RF Rx Instructions: Take 1 each morning for 7 days. omeprazole 20 mg capsule,delayed release(DR/EC) 20 mg PO DAILY Qty: 90 1RF famotidine 20 mg tablet See Rx Instructions .ROUTE .COMPLEX Qty: 90 3RF Dose Instruction: TAKE ONE TABLET BY MOUTH ONCE A DAY FOR GERD Rx Instructions: TAKE ONE TABLET BY MOUTH ONCE A DAY FOR GERD clopidogrel 75 mg tablet See Rx Instructions .ROUTE .COMPLEX Qty: 90 1RF Dose Instruction: TAKE ONE TABLET BY MOUTH DAY Rx Instructions: TAKE ONE TABLET BY MOUTH DAY quetiapine [Seroquel] 50 mg tablet 50 mg PO HS Qty: 90 1RF metformin 500 mg tablet 500 mg PO BID Qty: 180 1RF atorvastatin 40 mg tablet 40 mg PO DAILY Qty: 90 1RF ondansetron 4 mg tablet,disintegrating 4 mg PO Q8H PRN (Reason: nausea and vomiting) Qty: 30 0RF diazepam 2 mg tablet 2 mg PO TID Qty: 90 2RF venlafaxine 37.5 mg tablet 37.5 mg PO BID Qty: 180 1RF alendronate 70 mg tablet 70 mg PO WEEKLY Qty: 15 3RF fluticasone propionate 50 mcg/actuation spray,suspension 2 spray intranasal DAILY Qty: 16 5RF gabapentin 100 mg capsule See Rx Instructions .ROUTE .COMPLEX Qty: 60 0RF Dose Instruction: TAKE 2 CAPSULES (200 MG) BY MOUTH AT BEDTIME Rx Instructions: TAKE 2 CAPSULES (200 MG) BY MOUTH AT BEDTIME benzonatate 200 mg capsule 200 mg PO TID PRN (Reason: cough) Qty: 30 1RF Probiotic 15 billion cell capsule, sprinkle 1 cap PO DAILY 30 Days Qty: 30 0RF Rx Instructions: do not crush/chew/cut; swallow whole OR may open and sprinkle in cold drink/food acetaminophen [Tylenol] 325 mg tablet 325 mg PO QID PRN (Reason: pain) Qty: 30 0RF acetaminophen 500 mg capsule 1,000 mg PO Q8H PRN (Reason: as needed for fever and muscle aches) Qty: 60 0RF aspirin 81 mg tablet,chewable 81 mg PO DAILY benzonatate 200 mg capsule 200 mg PO TID PRN (Reason: cough) Qty: 20 0RF oseltamivir [Tamiflu] 75 mg capsule 75 mg PO BID 5 Days Qty: 10 0RF Activity Restrictions/Add. Instructions Additional Instructions/Restrictions: No evidence of severe dehydration surgical emergency or other emergent medical condition. Your diarrhea is likely secondary to your recent viral infection. Clinical Impressions Clinical Impression: Diarrhea Instructions Patient Instructions: DI for Diarrhea and Traveler's Diarrhea -- Adult, DI for Diarrhea and Traveler's Diarrhea -- Child, DI for Nausea -- Adult, DI for Nausea -- Child Print Language Print Language: [place] Discharge ED Provider: Karo Cadena General Adult HPI General Chief complaint: Nausea/Vomiting/Diarrhea Stated complaint: diarrhea/flu symptoms Time Seen by Provider: 01/06/25 10:35 Mode of Arrival: EMS Source of Information: Patient Description of Symptoms (Recalled from ER Triage Doc. by RN): Pt in by EMS for not feeling well, and diarrhea. Pt recently DX with flu and has one dose of tamiflu remaining. Pt denies any pain at this time. History of Present Illness HPI narrative: Sharron is a 74-year-old very well known to our emergency department who presents today with 1 day of diarrhea. No blood no mucus. No abdominal pain no fevers or chills. She was recently diagnosed with influenza. Patient has no nausea vomiting associated with this Related Data Home Medications ?Medication ?Instructions ?Recorded ?Confirmed aspirin 81 mg chewable tablet 81 mg PO DAILY 07/21/23 12/27/24 polyethylene glycol 3350 17 17 g PO DAILY 11/16/24 12/27/24 gram/dose oral powder (Miralax) Previous Rx's ?Medication ?Instructions ?Recorded omeprazole 20 mg capsule,delayed 20 mg PO DAILY #90 caps 05/15/24 release clopidogrel 75 mg tablet See Rx Instructions .Route 06/12/24 .COMPLEX #90 tabs famotidine 20 mg tablet See Rx Instructions .Route 06/12/24 .COMPLEX #90 tabs quetiapine 50 mg tablet (Seroquel) 50 mg PO HS #90 tabs 06/12/24 lactobacillus combo no.11 15 1 cap PO DAILY 30 days #30 caps 06/16/24 billion cell sprinkle capsule (Probiotic) acetaminophen 325 mg tablet 325 mg PO QID PRN pain #30 tabs 07/15/24 (Tylenol) atorvastatin 40 mg tablet 40 mg PO DAILY #90 tabs 08/11/24 metformin 500 mg tablet 500 mg PO BID #180 tabs 08/11/24 ondansetron 4 mg disintegrating 4 mg PO Q8H PRN nausea and 08/21/24 tablet vomiting #30 tabs blood pressure monitor #1 ea 10/10/24 diazepam 2 mg tablet 2 mg PO TID #90 tabs 11/10/24 venlafaxine 37.5 mg tablet 37.5 mg PO BID mood #180 tabs 11/10/24 isosorbide mononitrate 60 mg 60 mg PO DAILY #90 tabs 11/15/24 tablet,extended release 24 hr nitroglycerin 0.3 mg sublingual 0.3 mg sublingual Q5M PRN chest 11/15/24 tablet pain #20 tabs alendronate 70 mg tablet 70 mg PO WEEKLY #15 tabs 11/27/24 fluticasone propionate 50 2 spray intranasal DAILY #16 grams 12/11/24 mcg/actuation nasal spray,suspension furosemide 20 mg tablet (Lasix) 20 mg PO DAILY #7 tabs 12/19/24 metoprolol succinate 50 mg 50 mg PO BID #180 tabs 12/19/24 tablet,extended release 24 hr gabapentin 100 mg capsule See Rx Instructions .Route 12/22/24 .COMPLEX #60 caps isosorbide dinitrate 10 mg tablet 10 mg PO TID #90 tabs 12/27/24 benzonatate 200 mg capsule 200 mg PO TID PRN cough #20 caps 01/03/25 benzonatate 200 mg capsule 200 mg PO TID PRN cough #30 caps 01/03/25 oseltamivir 75 mg capsule (Tamiflu) 75 mg PO BID 5 days #10 caps 01/03/25 acetaminophen 500 mg capsule 1,000 mg (2 x 500 mg) PO Q8H PRN 01/05/25 as needed for fever and muscle aches #60 caps loperamide 2 mg capsule 2 mg PO Q6H PRN loose stool 5 days 01/06/25 #20 caps Allergies Allergy/AdvReac Type Severity Reaction Status Date / Time codeine (CODEINE) Allergy Unknown WEAK Verified 12/27/24 09:14 hydrochlorothiazide Allergy Unknown I-RASH Verified 12/27/24 09:14 (HYDROCHLOROTHIAZIDE) hydrocodone (HYDROCODONE) Allergy Unknown I-RASH Verified 12/27/24 09:14 metoclopramide Allergy Unknown SLURRED Verified 12/27/24 09:14 (METOCLOPRAMIDE) SPEECH, WEAK nifedipine (NIFEDIPINE) Allergy Unknown I-HIVES Verified 12/27/24 09:14 prazosin (PRAZOSIN) Allergy Unknown ITCHING/WEA Verified 12/27/24 09:14 K triamterene (TRIAMTERENE) Allergy Unknown I-RASH [facility]24 [facility] Dis[facility]: The information contained in this section may have been updated after the patient was seen, as this information can be updated by other users. 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 Family History Other Family history of cancer Family history of diabetes mellitus type II Family history of hypertension Family history of myocardial infarction Social History Smoking Status: Smoker, status unknown second hand exposure: Yes alcohol intake: never substance use type: denies use current occupational status: retired and disabled Travel in the last 8 weeks?: None household members: none housing: apartment lives independently: Yes marital status: single education level: middle school service: No residential: No current occupational exposures/hazards: No caffeine: No do you feel safe at home: Yes victim of physical abuse: No victim of emotional abuse: No victim of sexual abuse: No would you like helpful sources: No Have you lived/traveled outside [place] in past 30 days?: No Contact w/someone who lives/traveled outside US past 30 days?: No Exposure to someone with infectious disease in past 14 days?: No Do you have a fever (greater than 100.4 F or 38 C)?: No Have you tested positive for COVID-19?: No Exposed to someone with COVID-19 in past 14 days?: No Do you have a sore throat?: No Do you have a cough?: No Do you have any weakness?: Yes Do you have any diarrhea?: Yes Are you experiencing any unusual bleeding?: No Do you have any muscle aches/pain?: No Do you have any abdominal pain?: No Are you experiencing loss of taste or smell?: No Other Medical History Have you received the Flu Vaccine for this season: No Have you received the Pneumonia Vaccine: Yes ROS Obtained: Yes All systems reviewed & no additional complaints except as documented Physical Exam General General appearance: alert and in no apparent distress Respiratory Respiratory exam: Present normal lung sounds bilaterally; Absent respiratory distress Cardiovascular Cardiovascular exam: Present regular rate and normal rhythm Abdominal Exam Abdominal exam: Present soft; Absent distention or tenderness Neurological Exam Neurological exam: Present alert and oriented X3 Medical Decision Making Medical Records Screening: Per USPSTF and CDC recommendations, given the prevalence of disease in our region, it is our hospital?s policy to screen for HIV and viral Hepatitis for all patients aged 18 and over and those with ongoing risk factors. Chet Inquiry Pt receiving controlled substance: No Vital Signs: 01/06/25 09:43 01/06/25 09:46 01/06/25 10:00 Temperature 97.1 F L Temperature Source Oral Pulse Rate 69 64 Pulse Rate [Left] 65 Respiratory Rate 16 Blood Pressure 127/58 L 137/64 Blood Pressure [Right Arm] 127/58 L Blood Pressure Mean [Right Arm] 81 Blood Pressure Source [Right Arm] Automatic Cuff Blood Pressure Position [Right Arm] Sitting 02 Sat by Pulse Oximetry 99 98 99 Oxygen Delivery Method Room Air Room Air Room Air Medical Decision Narrative: Well-hydrated benign abdominal exam no nausea and vomiting in the 74-year-old with recent infectious/viral diagnosis presents today with 1 day of diarrhea. No emergent intervention is needed not concerned about any significant dehydration kidney dysfunction abdominal emergency etc. Return precautions emphasized loperamide prescribed patient discharged in a stable condition. Critical Care Critical Care Time Critical Care Time: No
[2025-01-06 11:00] VITALS: BP 148/70; PULSE 61; O2SAT 98
--- NOTE | 2025-01-06 11:32 | PC.NURSE ---
[facility] transport at 1200, Conf #: [id number]
[2025-01-06 11:33] VITALS: BP 137/80; PULSE 72; RESP 14; TEMP 36.3; O2SAT 98
== END 2025-01-06 11:56 | disposition home or self-care (01) ==
PROVIDERS: Emergency Provider Student in an Organized Health Care Education/Training Program
DX: R19.7 Diarrhea, unspecified (principal)
CPT/HCPCS: 99283

== ENCOUNTER 2025-01-12 14:20 | Emergency (ER) | payer MEDICARE, OTHER, SELFPAY ==
[2025-01-12 14:21] VITALS: BP 153/71; PULSE 67; RESP 15; TEMP 36.6; O2SAT 98; BMI 23.8
--- OUTSIDE RECORDS SUMMARY | 2025-01-12 14:24 | XMS_ITS | Clinical Summary ---
Author Organization [facility] Address [address] 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 Role Phone Hansel Ruff MD Primary Care Provider [phone] Allergies Active Allergy Reactions Criticality Noted Date [...] Scan 1950 [facility]-Medicare Annual Wellness (AWV) 1948 [facility]-Infant/Child/Adol SDOH Screenings 1948 Diabetes: Dental Exam 1958 [facility]- SDOH Screenings 1966 [facility]-Adult SDOH Screenings 1966 [facility]-DTaP,Tdap,and Td Vaccines (1 - Tdap) 12/15/1967 [facility]-Hepatitis A Vaccines (1 of 2 - Risk 2-dose series) 12/15/1967 [facility]-Zoster Vaccines (1 of 2) 1998 [facility]-Diabetes: Hemoglobin A1C 09/25/2018 03/28/2018 [facility]-RSV Vaccine: 60+ Years or (1 - 1-dose 75+ series) 12/15/2023 [id number] Vaccine ( - season) 2024 [facility]-Influenza Vaccine (#1) 03/12/202503/25, 03/22/2019, 03/18/2018, Additional history exists [facility]-Depression Screening [...] ORDERABLES Final Re sult [facility] [address] [place] [address] * (ABNORMAL) Hemoglobin A1c (03/28/2018 3:57 PM [...] <6.0% Children and Adolescents <7.5% . Source: [place] [employer]. Standards of medical care in diabetes, 2017. Diabetes Care.2017:40 (suppl 1):S1-S135. . HbA1c assay performed by an ion-exchange chromatography method that is certified traceable to the DCCT. 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
--- OUTSIDE RECORDS SUMMARY | 2025-01-12 14:24 | XMS_ITS | Data Portability ---
Author Organization [place] - [facility] - [facility] THEO Cramer ADMIN Address [address] [place] [phone] Assessment Encounter Date Assessment Date Assessment LastModified [...] in Arterial blood by Pulse oximetry Systolic And Diastolic Provider Name and Address Organization Details Last Updated DateTime 4 49861.1 8 g 22.3 kg/m2 154.94 cm 97.9 [degF] 75 /min 77 /min 98 % 98 % 160/84 mm[Hg] Bailey Florez [place] - [facility] & [place] 10:49:58 Social History None recorded. Functional Status None recorded. Mental Status None recorded. Family History Nothing Reported. Medical History No medical history recorded. Gynecological HistoryNo gynecological history recorded. Obstetrics History GPAL:G 0 P 0 0 0 0 Past Encounters Encounter ID Performer Location Encounter Start Date Encounter Closed Date Diagnosis/Indication Diagnosis SNOMED-CT Code Diagnosis ICD10 Code Diagnosis Note [id number] Gregory Soriano MD [facility] [address] [address] 02/17/2024 10:16:49 02/17/2024 11:24:06 Abdominal pain 71467246 R10.9 Achalasia of esophagus 83008228 K22.0 Dysphagia 96429314 R13.1 0 Health Concerns Section Related Observation LastModified by Organization Detai ls LastModified Time None Recorded Concern Status LastModified by Organization Details LastModified Time None Recorded Advance Directives Directive None Recorded Payers Insurance Date Sequence Insurance Name Policy Number Policy Piper Covered Member ID Piper Member ID Guarantor Name 02/17/2024 2 [place] Sharron Hankins Elvin [id number] Sharron Cr Oconnor 02/17/2024 2 [facility] (MEDICAID HMO) Sharron Oconnor [id number] Sharron Oconnor 02/17/2024 2 [facility] (MEDICAID REPLACEMENT - HMO) [id number]_[id number] Sharron Oconnor [id number] Sharron Oconnor 04/06/2024 1 [facility] (MEDICARE REPLACEMENT/AD VANTAGE - HMO) [place]DSNP Sharron Oconnor [id number] Sharron Oconnor Notes Date Note Type Note Provider Name and Address Organization Details Recorded Time 02/17/2024 text/html Ms. Oconnor is a 73-year-old female who presents to [facility] care for abdominal pain and dysphagia. The patient has been found to have likely achalasia on previous cross-sectional imaging and EGD. She did undergo Botox injection previously with Dr. Mackey at [facility] with some improvement. she is accompanied [...] noted. No other findings. Gregory Soriano MD [address], [place], [address], [facility] - [place] & [place] 02/17/2024 11:15:24 OBGyn Episode No OBEpisode recorded.
[2025-01-12 14:31] LABS: Microscopic, Urine URINE MICROSCOPIC (MICROSCOPIC)
[2025-01-12 14:33] VITALS: BP 153/71; PULSE 67; RESP 15; TEMP 36.6; O2SAT 98
[2025-01-12 14:37] LABS: Bilirubin,Urine Negative (Negative); Color,Urine YELLOW (Yellow); Glucose,Urine (UA) Negative (Negative); Ketones,Urine Negative (Negative); Leukocyte Esterase,Urine TRACE (Negative); PH,Urine 7.0 (5.0-8.5); Protein,Urine Negative (Negative); Specific Gravity, Urine <= 1.005 (1.005-1.030); Urobilinogen,Urine 0.2 EU/dl (0.2)
[2025-01-12 14:45] LABS: Bacteria,Urine Trace /lpf; Squamous Epithelial Cell,Urine Occasional #/hpf (0-5); WBC,Urine Occasional #/hpf (0-3)
[2025-01-12] MEDS: ONDANSETRON 4MG ODT 4 MG SL (15:00)
--- NOTE | 2025-01-12 15:00 | [facility]H.EDGENADL ---
Discharge Plan Disposition Patient Disposition: Home, Self-Care Prescriptions Prescriptions: No Action nitroglycerin 0.3 mg tablet, sublingual 0.3 mg sublingual Q5M PRN (Reason: chest pain) Qty: 20 3RF Rx Instructions: do not exceed 3 doses per episode isosorbide dinitrate 10 mg tablet 10 mg PO TID Qty: 90 12RF Rx Instructions: allow nitrate-free interval of 12-14 hrs per 24-hr period (DME) blood pressure monitor Kit See Rx Instructions .Route Qty: 1 0RF Rx Instructions: As directed polyethylene glycol 3350 [Miralax] 17 gram/dose powder 17 g PO DAILY metoprolol succinate 50 mg tablet extended release 24 hr 50 mg PO BID Qty: 180 1RF furosemide [Lasix] 20 mg tablet 20 mg PO DAILY Qty: 7 0RF Rx Instructions: Take 1 each morning for 7 days. omeprazole 20 mg capsule,delayed release(DR/EC) 20 mg PO DAILY Qty: 90 1RF famotidine 20 mg tablet See Rx Instructions .ROUTE .COMPLEX Qty: 90 3RF Dose Instruction: TAKE ONE TABLET BY MOUTH ONCE A DAY FOR GERD Rx Instructions: TAKE ONE TABLET BY MOUTH ONCE A DAY FOR GERD clopidogrel 75 mg tablet See Rx Instructions .ROUTE .COMPLEX Qty: 90 1RF Dose Instruction: TAKE ONE TABLET BY MOUTH DAY Rx Instructions: TAKE ONE TABLET BY MOUTH DAY quetiapine [Seroquel] 50 mg tablet 50 mg PO HS Qty: 90 1RF metformin 500 mg tablet 500 mg PO BID Qty: 180 1RF atorvastatin 40 mg tablet 40 mg PO DAILY Qty: 90 1RF ondansetron 4 mg tablet,disintegrating 4 mg PO Q8H PRN (Reason: nausea and vomiting) Qty: 30 0RF diazepam 2 mg tablet 2 mg PO TID Qty: 90 2RF venlafaxine 37.5 mg tablet 37.5 mg PO BID Qty: 180 1RF alendronate 70 mg tablet 70 mg PO WEEKLY Qty: 15 3RF fluticasone propionate 50 mcg/actuation spray,suspension 2 spray intranasal DAILY Qty: 16 5RF gabapentin 100 mg capsule See Rx Instructions .ROUTE .COMPLEX Qty: 60 0RF Dose Instruction: TAKE 2 CAPSULES (200 MG) BY MOUTH AT BEDTIME Rx Instructions: TAKE 2 CAPSULES (200 MG) BY MOUTH AT BEDTIME isosorbide mononitrate 60 mg tablet extended release 24 hr 60 mg PO DAILY Qty: 90 1RF dicyclomine 10 mg capsule 10 mg PO BID Qty: 60 12RF Rx Instructions: Please take 1 capsule p.o. twice daily Probiotic 15 billion cell capsule, sprinkle 1 cap PO DAILY 30 Days Qty: 30 0RF Rx Instructions: do not crush/chew/cut; swallow whole OR may open and sprinkle in cold drink/food acetaminophen [Tylenol] 325 mg tablet 325 mg PO QID PRN (Reason: pain) Qty: 30 0RF acetaminophen 500 mg capsule 1,000 mg PO Q8H PRN (Reason: as needed for fever and muscle aches) Qty: 60 0RF aspirin 81 mg tablet,chewable 81 mg PO DAILY benzonatate 200 mg capsule 200 mg PO TID PRN (Reason: cough) Qty: 20 0RF loperamide 2 mg capsule 2 mg PO Q6H PRN (Reason: loose stool) 5 Days Qty: 20 0RF Rx Instructions: Please take 4 mg initially, followed by 2 mg after each loose stool, maximum 16 mg/day Referrals Follow up/Referrals: Provider,Referral, MD [Primary Care Provider, Medical] - See instructions Activity Restrictions/Add. Instructions Additional Instructions/Restrictions: Today you were evaluated in the emergency department for nausea. Your lab work is unremarkable. You were given a dose of Zofran while in the ED. Please return to the ED for worsening of condition. Follow-up with your PCP as scheduled. Clinical Impressions Clinical Impression: Nausea Instructions Patient Instructions: DI for Nausea -- Adult Print Language Print Language: Syrian Discharge ED Provider: Kamlesh Wei General Adult HPI <Yudelka Gunter APRN - Last Filed: 01/12/25 17:27> General Chief complaint: Abdominal Pain Stated complaint: Abdominal pain Time Seen by Provider: 01/12/25 14:29 Mode of Arrival: EMS Source of Information: Patient and EMS Description of Symptoms (Recalled from ER Triage Doc. by RN): EMS was called out for pt having abdominal pain. Per EMS pt had an appointment with GI yesterday but the pt canceled the appintment. pt reports side abdominal pain and nausea that started this morning whne she woke up. History of Present Illness HPI narrative: patient is a 74-year-old female PMHx GERD, history of UTI, diabetes CAD, CABG who presents to the ED for complaints of nausea that started this morning. Patient states she has been able to tolerate PO today prior to arrival. She denies any pain. Related Data Home Medications ?Medication ?Instructions ?Recorded ?Confirmed aspirin 81 mg chewable tablet 81 mg PO DAILY 07/21/23 01/08/25 polyethylene glycol 3350 17 17 g PO DAILY 11/16/24 01/08/25 gram/dose oral powder (Miralax) Previous Rx's ?Medication ?Instructions ?Recorded omeprazole 20 mg capsule,delayed 20 mg PO DAILY #90 caps 05/15/24 release clopidogrel 75 mg tablet See Rx Instructions .Route 06/12/24 .COMPLEX #90 tabs famotidine 20 mg tablet See Rx Instructions .Route 06/12/24 .COMPLEX #90 tabs quetiapine 50 mg tablet (Seroquel) 50 mg PO HS #90 tabs 06/12/24 lactobacillus combo no.11 15 1 cap PO DAILY 30 days #30 caps 06/16/24 billion cell sprinkle capsule (Probiotic) acetaminophen 325 mg tablet 325 mg PO QID PRN pain #30 tabs 07/15/24 (Tylenol) atorvastatin 40 mg tablet 40 mg PO DAILY #90 tabs 08/11/24 metformin 500 mg tablet 500 mg PO BID #180 tabs 08/11/24 ondansetron 4 mg disintegrating 4 mg PO Q8H PRN nausea and 08/21/24 tablet vomiting #30 tabs blood pressure monitor #1 ea 10/10/24 diazepam 2 mg tablet 2 mg PO TID #90 tabs 11/10/24 venlafaxine 37.5 mg tablet 37.5 mg PO BID mood #180 tabs 11/10/24 nitroglycerin 0.3 mg sublingual 0.3 mg sublingual Q5M PRN chest 11/15/24 tablet pain #20 tabs alendronate 70 mg tablet 70 mg PO WEEKLY #15 tabs 11/27/24 fluticasone propionate 50 2 spray intranasal DAILY #16 grams 12/11/24 mcg/actuation nasal spray,suspension furosemide 20 mg tablet (Lasix) 20 mg PO DAILY #7 tabs 12/19/24 metoprolol succinate 50 mg 50 mg PO BID #180 tabs 12/19/24 tablet,extended release 24 hr gabapentin 100 mg capsule See Rx Instructions .Route 12/22/24 .COMPLEX #60 caps isosorbide dinitrate 10 mg tablet 10 mg PO TID #90 tabs 12/27/24 benzonatate 200 mg capsule 200 mg PO TID PRN cough #20 caps 01/03/25 acetaminophen 500 mg capsule 1,000 mg (2 x 500 mg) PO Q8H PRN 01/05/25 as needed for fever and muscle aches #60 caps loperamide 2 mg capsule 2 mg PO Q6H PRN loose stool 5 days 01/06/25 #20 caps isosorbide mononitrate 60 mg 60 mg PO DAILY #90 tabs 01/09/25 tablet,extended release 24 hr dicyclomine 10 mg capsule 10 mg PO BID #60 caps 01/11/25 Allergies Allergy/AdvReac Type Severity Reaction Status Date / Time codeine (CODEINE) Allergy Unknown WEAK Verified 01/08/25 11:41 hydrochlorothiazide Allergy Unknown I-RASH Verified 01/08/25 11:41 (HYDROCHLOROTHIAZIDE) hydrocodone (HYDROCODONE) Allergy Unknown I-RASH Verified 01/08/25 11:41 metoclopramide Allergy Unknown SLURRED Verified 01/08/25 11:41 (METOCLOPRAMIDE) SPEECH, WEAK nifedipine (NIFEDIPINE) Allergy Unknown I-HIVES Verified 01/08/25 11:41 prazosin (PRAZOSIN) Allergy Unknown ITCHING/WEA Verified 01/08/25 11:41 K triamterene (TRIAMTERENE) Allergy Unknown I-RASH Verified 01/08/25 11:41 [facility] <Yudelka Gunter, EXTRACTING MACHINE OPERATOR - Last Filed: 01/12/25 17:27> [facility] Disclaimer: The information contained in this section may have been updated after the patient was seen, as this information can be updated by other users. 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 Family History Other Family history of cancer Family history of diabetes mellitus type II Family history of hypertension Family history of myocardial infarction Social History Smoking Status: Never smoker second hand exposure: Yes alcohol intake: never substance use type: denies use current occupational status: retired and disabled Travel in the last 8 weeks?: None household members: none housing: apartment lives independently: Yes marital status: single education level: middle school service: No jail: No current occupational exposures/hazards: No caffeine: No do you feel safe at home: Yes victim of physical abuse: No victim of emotional abuse: No victim of sexual abuse: No would you like helpful sources: No Have you lived/traveled outside [place] in past 30 days?: No Contact w/someone who lives/traveled outside [place] past 30 days?: No Exposure to someone with infectious disease in past 14 days?: No Do you have a fever (greater than 100.4 F or 38 C)?: No Have you tested positive for COVID-19?: No Exposed to someone with COVID-19 in past 14 days?: No Do you have a sore throat?: No Do you have a cough?: No Do you have any weakness?: No Do you have any diarrhea?: No Are you experiencing any unusual bleeding?: No Do you have any muscle aches/pain?: No Do you have any abdominal pain?: No Are you experiencing loss of taste or smell?: No Other Medical History Have you received the Flu Vaccine for this season: No Have you received the Pneumonia Vaccine: Yes <Yudelka Guntre APRN - Last Filed: 01/12/25 17:27> ROS Obtained: Yes Systems reviewed as appropriate & no additional complaints except as documented Physical Exam <Yudelka Gunter APRN - Last Filed: 01/12/25 17:27> General General appearance: alert and in no apparent distress Head Head exam: atraumatic and normocephalic Eye Eye exam: Present normal appearance and PERRL ENT ENT exam: Present normal exam Neck Neck exam: Present normal inspection Chest Chest inspection: Present normal inspection and symmetric chest wall rise; Absent tenderness Respiratory Respiratory exam: Present normal lung sounds bilaterally Cardiovascular Cardiovascular exam: Present regular rate Abdominal Exam Abdominal exam: Present soft and normal bowel sounds; Absent tenderness Extremities Exam Extremities exam: Present normal inspection and full ROM Back Exam Back exam: Present normal inspection and full ROM Neurological Exam Neurological exam: Present alert and oriented X3 Psychiatric Psychiatric exam: Present normal affect and normal mood Skin Skin exam: Present warm and dry Medical Decision Making <Yudelka Gunter APRN - Last Filed: 01/12/25 17:27> Medical Records Screening: Per USPSTF and CDC recommendations, given the prevalence of disease in our region, it is our hospital?s policy to screen for HIV and viral Hepatitis for all patients aged 18 and over and those with ongoing risk factors. Chet Inquiry Pt receiving controlled substance: No Vital Signs: 01/12/25 14:21 01/12/25 14:33 01/12/25 15:18 Temperature 97.8 F 97.8 F Temperature Source Oral Oral Pulse Rate 67 69 Pulse Rate [Right] 67 Respiratory Rate 15 15 18 Blood Pressure 153/71 H 153/63 H Blood Pressure [Right Arm] 153/71 H Blood Pressure Mean 81 Blood Pressure Mean [Right Arm] 98 Blood Pressure Source Automatic Cuff Blood Pressure Source [Right Arm] Automatic Cuff Blood Pressure Position Supine Blood Pressure Position [Right Arm] Supine 02 Sat by Pulse Oximetry 98 98 98 Oxygen Delivery Method Room Air Room Air 01/12/25 15:44 Temperature 98.7 F Temperature Source Oral Pulse Rate 64 Pulse Rate [Right] Respiratory Rate 14 Blood Pressure 175/68 H Blood Pressure [Right Arm] Blood Pressure Mean Blood Pressure Mean [Right Arm] Blood Pressure Source Automatic Cuff Blood Pressure Source [Right Arm] Blood Pressure Position Supine Blood Pressure Position [Right Arm] 02 Sat by Pulse Oximetry Oxygen Delivery Method Room Air Lab Data Lab Results 01/12/25 14:22: Urine Color Yellow, Urine Appearance Clear, Urine pH 7.0, Ur Specific [place] <= 1.005, Urine Protein Negative, Urine Glucose (UA) Negative, Urine Ketones Negative, Urine Blood Negative, Urine Nitrate Negative, Urine Bilirubin Negative, Urine Urobilinogen 0.2, Ur Leukocyte Esterase Trace, Urine WBC Occasional, Ur Squamous Epith Cells Occasional, Urine Bacteria Trace 01/12/25 14:52: WBC 6.6, RBC 3.29 L, Hgb 10.5 L, Hct 31.0 L, MCV 94.2, MCH 31.9 H, MCHC 33.9, RDW 13.7, Plt Count 206, MPV 10.5 H, Neut % (Auto) 72.2, Lymph % (Auto) 15.5, [place] % (Auto) 9.9 H, Eos % (Auto) 0.5, Baso % (Auto) 0.5, Neut # (Auto) 4.7, Lymph # (Auto) 1.0, [place] # (Auto) 0.7, Eos # (Auto) 0.0, Baso # (Auto) 0.0, Sodium 134 L, Potassium 4.9, Chloride 97 L, Carbon Dioxide 25, Anion Gap 16.9 H, BUN 12, Creatinine 0.70, Estimated Creat Clear 42, Estimated GFR 81, Est GFR ( Amer) 98, Glucose 111 H, Calcium 9.9, Total Bilirubin 0.5, AST 25, ALT 15, Alkaline Phosphatase 64, Total Protein 6.5, Albumin 4.5, Globulin 2.0, Albumin/Globulin Ratio 2.3 H 01/12/25 14:52 01/12/25 14:52 Orders (Tests/Meds): ED MEDICATIONS Discontinued Medications Generic Name Dose Route Start Last Admin Trade Name Freq PRN Reason Stop Dose Admin Ondansetron HCl 4 mg 01/12/25 14:26 01/12/25 15:00 Ondansetron 4mg Odt SL 01/12/25 14:27 4 mg ONCE ONE Administration ORDERS Category Date Time Status CBC w/Auto Diff [Complete Blood Count Auto Diff] Stat Lab 01/12/25 14:52 Completed CMP [Comprehensive Metabolic Panel] Stat Lab 01/12/25 14:52 Completed Urinalysis and Microscopic Stat Lab 01/12/25 14:22 Completed Medical Decision Narrative: In summary, patient is a 74-year-old female PMHx GERD, history of UTI, diabetes CAD, CABG who presents to the ED for complaints of nausea that started this morning. Patient states she has been able to tolerate PO today prior to arrival. She denies any pain. Denies any additional complaints. Denies any recent trauma or falls. Denies fever, chills, headache, visual disturbance, chest pain, shortness of breath, abdominal pain, back pain, dysuria, hematuria. Upon initial evaluation patient is alert, oriented and cooperative. Her physical exam is unremarkable, abdomen is soft and nontender. No flank tenderness. Discussed with patient we will proceed with labs and administer Zofran for nausea. She is agreeable to plan of care at this time. Labs reviewed. CBC unremarkable for any leukocytosis, stable H&H. CMP unremarkable for any acute process. Urinalysis unremarkable for any infectious process. Patient able to tolerate PO. She is ambulatory around the ED without difficulty. Given this, I feel the patient is stable be discharged home at this time. Advised her to follow-up with her PCP and return to the ED for any worsening of condition. She remained hemodynamically stable during her ED stay. Kamlesh Wei: I was consulted by the [facility], and we discussed the complexity of the problems being addressed. I approved the treatment and management plan for this patient's care in the emergency department, thus performing a substantive portion of the medical decision making. I agree with initial evaluation which in totality was pending at time of transfer of care to the oncoming physician, Dr. Oconnor. <Kamlesh Wei MD - Last Filed: 01/12/25 15:07> Vital Signs: 01/12/25 14:21 01/12/25 14:33 01/12/25 15:18 Temperature 97.8 F 97.8 F Temperature Source Oral Oral Pulse Rate 67 69 Pulse Rate [Right] 67 Respiratory Rate 15 15 18 Blood Pressure 153/71 H 153/63 H Blood Pressure [Right Arm] 153/71 H Blood Pressure Mean 81 Blood Pressure Mean [Right Arm] 98 Blood Pressure Source Automatic Cuff Blood Pressure Source [Right Arm] Automatic Cuff Blood Pressure Position Supine Blood Pressure Position [Right Arm] Supine 02 Sat by Pulse Oximetry 98 98 98 Oxygen Delivery Method Room Air Room Air 01/12/25 15:44 Temperature 98.7 F Temperature Source Oral Pulse Rate 64 Pulse Rate [Right] Respiratory Rate 14 Blood Pressure 175/68 H Blood Pressure [Right Arm] Blood Pressure Mean Blood Pressure Mean [Right Arm] Blood Pressure Source Automatic Cuff Blood Pressure Source [Right Arm] Blood Pressure Position Supine Blood Pressure Position [Right Arm] 02 Sat by Pulse Oximetry Oxygen Delivery Method Room Air Lab Data Lab Results 01/12/25 14:22: Urine Color Yellow, Urine Appearance Clear, Urine pH 7.0, Ur Specific [place] <= 1.005, Urine Protein Negative, Urine Glucose (UA) Negative, Urine Ketones Negative, Urine Blood Negative, Urine Nitrate Negative, Urine Bilirubin Negative, Urine Urobilinogen 0.2, Ur Leukocyte Esterase Trace, Urine WBC Occasional, Ur Squamous Epith Cells Occasional, Urine Bacteria Trace 01/12/25 14:52: WBC 6.6, RBC 3.29 L, Hgb 10.5 L, Hct 31.0 L, MCV 94.2, MCH 31.9 H, MCHC 33.9, RDW 13.7, Plt Count 206, MPV 10.5 H, Neut % (Auto) 72.2, Lymph % (Auto) 15.5, [place] % (Auto) 9.9 H, Eos % (Auto) 0.5, Baso % (Auto) 0.5, Neut # (Auto) 4.7, Lymph # (Auto) 1.0, [place] # (Auto) 0.7, Eos # (Auto) 0.0, Baso # (Auto) 0.0, Sodium 134 L, Potassium 4.9, Chloride 97 L, Carbon Dioxide 25, Anion Gap 16.9 H, BUN 12, Creatinine 0.70, Estimated Creat Clear 42, Estimated GFR 81, Est GFR ( Amer) 98, Glucose 111 H, Calcium 9.9, Total Bilirubin 0.5, AST 25, ALT 15, Alkaline Phosphatase 64, Total Protein 6.5, Albumin 4.5, Globulin 2.0, Albumin/Globulin Ratio 2.3 H Orders (Tests/Meds): ED MEDICATIONS Discontinued Medications Generic Name Dose Route Start Last Admin Trade Name Freq PRN Reason Stop Dose Admin Ondansetron HCl 4 mg 01/12/25 14:26 01/12/25 15:00 Ondansetron 4mg Odt SL 01/12/25 14:27 4 mg ONCE ONE Administration ORDERS Category Date Time Status CBC w/Auto Diff [Complete Blood Count Auto Diff] Stat Lab 01/12/25 14:52 Completed CMP [Comprehensive Metabolic Panel] Stat Lab 01/12/25 14:52 Completed Urinalysis and Microscopic Stat Lab 01/12/25 14:22 Completed Medical Decision Narrative: In summary, patient is a 74-year-old female PMHx GERD, history of UTI, diabetes CAD, CABG who presents to the ED for complaints of nausea that started this morning. Patient states she has been able to tolerate PO today prior to arrival. She denies any pain. Denies any additional complaints. Denies any recent trauma or falls. Denies fever, chills, headache, visual disturbance, chest pain, shortness of breath, abdominal pain, back pain, dysuria, hematuria. Upon initial evaluation patient is alert, oriented and cooperative. Her physical exam is unremarkable, abdomen is soft and nontender. No flank tenderness. Discussed with patient we will proceed with labs and administer Zofran for nausea. She is agreeable to plan of care at this time. Labs reviewed. CBC unremarkable for any leukocytosis, stable H&H. Urinalysis unremarkable for any infectious process. Kamlesh Eriberto: I was consulted by the [place], and we discussed the complexity of the problems being addressed. I approved the treatment and management plan for this patient's care in the emergency department, thus performing a substantive portion of the medical decision making. I agree with initial evaluation which in totality was pending at time of transfer of care to the oncoming physician, Dr. Oconnor. <Romaine Mitchell MD - Last Filed: 01/13/25 02:21> Vital Signs: 01/12/25 14:21 01/12/25 14:33 01/12/25 15:18 Temperature 97.8 F 97.8 F Temperature Source Oral Oral Pulse Rate 67 69 Pulse Rate [Right] 67 Respiratory Rate 15 15 18 Blood Pressure 153/71 H 153/63 H Blood Pressure [Right Arm] 153/71 H Blood Pressure Mean 81 Blood Pressure Mean [Right Arm] 98 Blood Pressure Source Automatic Cuff Blood Pressure Source [Right Arm] Automatic Cuff Blood Pressure Position Supine Blood Pressure Position [Right Arm] Supine 02 Sat by Pulse Oximetry 98 98 98 Oxygen Delivery Method Room Air Room Air 01/12/25 15:44 Temperature 98.7 F Temperature Source Oral Pulse Rate 64 Pulse Rate [Right] Respiratory Rate 14 Blood Pressure 175/68 H Blood Pressure [Right Arm] Blood Pressure Mean Blood Pressure Mean [Right Arm] Blood Pressure Source Automatic Cuff Blood Pressure Source [Right Arm] Blood Pressure Position Supine Blood Pressure Position [Right Arm] 02 Sat by Pulse Oximetry Oxygen Delivery Method Room Air Lab Data Lab Results 01/12/25 14:22: Urine Color Yellow, Urine Appearance Clear, Urine pH 7.0, Ur Specific [place] <= 1.005, Urine Protein Negative, Urine Glucose (UA) Negative, Urine Ketones Negative, Urine Blood Negative, Urine Nitrate Negative, Urine Bilirubin Negative, Urine Urobilinogen 0.2, Ur Leukocyte Esterase Trace, Urine WBC Occasional, Ur Squamous Epith Cells Occasional, Urine Bacteria Trace 01/12/25 14:52: WBC 6.6, RBC 3.29 L, Hgb 10.5 L, Hct 31.0 L, MCV 94.2, MCH 31.9 H, MCHC 33.9, RDW 13.7, Plt Count 206, MPV 10.5 H, Neut % (Auto) 72.2, Lymph % (Auto) 15.5, [place] % (Auto) 9.9 H, Eos % (Auto) 0.5, Baso % (Auto) 0.5, Neut # (Auto) 4.7, Lymph # (Auto) 1.0, [place] # (Auto) 0.7, Eos # (Auto) 0.0, Baso # (Auto) 0.0, Sodium 134 L, Potassium 4.9, Chloride 97 L, Carbon Dioxide 25, Anion Gap 16.9 H, BUN 12, Creatinine 0.70, Estimated Creat Clear 42, Estimated GFR 81, Est GFR ( Amer) 98, Glucose 111 H, Calcium 9.9, Total Bilirubin 0.5, AST 25, ALT 15, Alkaline Phosphatase 64, Total Protein 6.5, Albumin 4.5, Globulin 2.0, Albumin/Globulin Ratio 2.3 H Orders (Tests/Meds): ED MEDICATIONS Discontinued Medications Generic Name Dose Route Start Last Admin Trade Name Freq PRN Reason Stop Dose Admin Ondansetron HCl 4 mg 01/12/25 14:26 01/12/25 15:00 Ondansetron 4mg Odt SL 01/12/25 14:27 4 mg ONCE ONE Administration ORDERS Category Date Time Status CBC w/Auto Diff [Complete Blood Count Auto Diff] Stat Lab 01/12/25 14:52 Completed CMP [Comprehensive Metabolic Panel] Stat Lab 01/12/25 14:52 Completed Urinalysis and Microscopic Stat Lab 01/12/25 14:22 Completed Medical Decision Narrative: In summary, patient is a 74-year-old female PMHx GERD, history of UTI, diabetes CAD, CABG who presents to the ED for complaints of nausea that started this morning. Patient states she has been able to tolerate PO today prior to arrival. She denies any pain. Denies any additional complaints. Denies any recent trauma or falls. Denies fever, chills, headache, visual disturbance, chest pain, shortness of breath, abdominal pain, back pain, dysuria, hematuria. Upon initial evaluation patient is alert, oriented and cooperative. Her physical exam is unremarkable, abdomen is soft and nontender. No flank tenderness. Discussed with patient we will proceed with labs and administer Zofran for nausea. She is agreeable to plan of care at this time. Labs reviewed. CBC unremarkable for any leukocytosis, stable H&H. CMP unremarkable for any acute process. Urinalysis unremarkable for any infectious process. Patient able to tolerate PO. She is ambulatory around the ED without difficulty. Given this, I feel the patient is stable be discharged home at this time. Advised her to follow-up with her PCP and return to the ED for any worsening of condition. She remained hemodynamically stable during her ED stay. Kamlesh Wei: I was consulted by the [place], and we discussed the complexity of the problems being addressed. I approved the treatment and management plan for this patient's care in the emergency department, thus performing a substantive portion of the medical decision making. I agree with initial evaluation which in totality was pending at time of transfer of care to the oncoming physician, Dr. Mitchell. I, Romaine Mitchell, was consulted by the [place], and we discussed the complexity of the problems being addressed. I approve the treatment and management plan for this patient's care in the emergency department, thus performing a substantive portion of the medical decision making. Romaine Mitchell MD Critical Care <Kamlesh Wei MD - Last Filed: 01/12/25 15:07> Critical Care Time Critical Care Time: No
[2025-01-12 15:01] LABS: Hematocrit 31.0 % (37.0-47.0); Hemoglobin 10.5 g/dL (12.2-16.2); Immature Granulocytes % 1.4 %; Mean Corpuscular HGB Conc 33.9 g/dL (31.8-35.4); Mean Corpuscular Hemoglobin 31.9 pg (27.0-31.2); Mean Corpuscular Volume 94.2 fl (81-99); Nucleated Red Blood Cells % 0.5 %; Platelet Count 206 K/mm3 (142-424); Red Blood Count 3.29 M/mm3 (4.20-5.40); Red Cell Distribution Width-SD 47.4 fL; White Blood Count 6.6 K/mm3 (4.8-10.8)
[2025-01-12 15:18] VITALS: BP 153/63; PULSE 69; RESP 18; O2SAT 98
[2025-01-12 15:18] LABS: Albumin Level 4.5 g/dl (3.5-5.0); Chloride 97 mmol/L (98-107)
[2025-01-12 15:19] LABS: Potassium 4.9 mmoL/L (3.5-5.1); Sodium 134 mmol/L (136-145)
[2025-01-12 15:21] LABS: Alanine Aminotransferase 15 U/L (12-78); Anion Gap 16.9 mEq/L (5-15); Aspartate Amino Transferase 25 U/L (14-36); Blood Urea Nitrogen 12 mg/dl (7-17); Carbon Dioxide 25 mmol/L (22.0-30.0); Creatinine Clearance Estimated 42 mL/min (50-200); Creatinine,Serum 0.70 mg/dl (0.52-1.04); Estimated Glomerular Filt Rate 81 ml/min (>60); GFR (African American) 98 ML/MIN (>60)
[2025-01-12 15:22] LABS: Albumin/Globulin Ratio 2.3 (1.1-1.8); Alkaline Phosphatase 64 U/L (38-126); Bilirubin,Total 0.5 mg/dl (0.2-1.3); Calcium 9.9 mg/dl (8.4-10.2); Globulin 2.0 g/dL (1.3-3.2); Glucose 111 mg/dl (74-100); Total Protein,Serum 6.5 g/dl (6.3-8.2)
[2025-01-12 15:44] VITALS: BP 175/68; PULSE 64; RESP 14; TEMP 37.1; O2SAT 97
--- NOTE | 2025-01-12 15:45 | PC.NURSE ---
called Mr. Reynaga for a ride
== END 2025-01-12 15:52 | disposition home or self-care (01) ==
PROVIDERS: Nurse Practitioner; Emergency Provider Emergency Medicine
DX: R10.9 Unspecified abdominal pain (principal); R11.0 Nausea
CPT/HCPCS: 80053; 81001; 85025; 99283; Q0162

== ENCOUNTER 2025-01-19 07:41 | Outpatient (CLI) | payer MEDICARE, OTHER, SELFPAY ==
--- OUTSIDE RECORDS SUMMARY | 2025-01-19 07:43 | XMS_ITS | Data Portability ---
Author Organization [place] - [facility] - [facility] THEO Cramer ADMIN Address [address] [place] [id number] Assessment Encounter Date Assessment Date Assessment LastModified [...] Address Organization Details Last Updated DateTime 4 55925.1 8 g 22.3 kg/m2 154.94 cm 97.9 [degF] 75 /min 77 /min 98 % 98 % 160/84 mm[Hg] Bailey Florez [place] - [facility] [place] 10:49:58 Social History None recorded. Functional Status None recorded. Mental Status None recorded. Family History Nothing Reported. Medical History No medical history recorded. Gynecological HistoryNo gynecological history recorded. Obstetrics History GPAL:G 0 P 0 0 0 0 Past Encounters Encounter ID Performer Location Encounter Start Date Encounter Closed Date Diagnosis/Indication Diagnosis SNOMED-CT Code Diagnosis ICD10 Code Diagnosis Note [id number] Gregory Soriano MD [facility] [address] 02/17/2024 10:16:49 02/17/2024 11:24:06 Abdominal pain 96182352 R10.9 Achalasia of esophagus 48476584 K22.0 Dysphagia 58211465 R13.1 0 Health Concerns Section Related Observation LastModified by Organization Detai ls LastModified Time None Recorded Concern Status LastModified by Organization Details LastModified Time None Recorded Advance Directives Directive None Recorded Payers Insurance Date Sequence Insurance Name Policy Number Policy Piper Covered Member ID Piper Member ID Guarantor Name 02/17/2024 2 [place] Sharron Hankins Elvin [id number] Sharron Cr Oconnor 02/17/2024 2 [facility] (MEDICAID HMO) Sharron Oconnor [id number] Sharron Oconnor 02/17/2024 2 [facility] (MEDICAID REPLACEMENT - HMO) [id number] Sharron Oconnor [id number] Sharron Oconnor 04/06/2024 1 [facility] (MEDICARE REPLACEMENT/AD VANTAGE - HMO) [id number] Sharron Oconnor [id number] Sharron Oconnor Notes Date Note Type Note Provider Name and Address Organization Details Recorded Time 02/17/2024 text/html Ms. Oconnor is a 73-year-old female who presents to [facility] for abdominal pain and dysphagia. The patient has been found to have likely achalasia on previous cross-sectional imaging and EGD. She did undergo Botox injection previously with Dr. Mackey at [facility] with some improvement. she is [...] noted. No other findings. Gregory Soriano MD [address], [place], [address], [facility] - [place] & [place] 02/17/2024 11:15:24 OBGyn Episode No OBEpisode recorded.
--- OUTSIDE RECORDS SUMMARY | 2025-01-19 07:43 | XMS_ITS | Clinical Summary ---
Author Organization [facility] Address [address] [place] [address] Care Team Providers Care Neon Sign Worker Name Role Phone Hansel Ruff MD Primary Care Provider [phone] Allergies Active Allergy Reactions Criticality Noted Date [...] or (1 - 1-dose 75+ series) 12/15/2023 [id number] Vaccine ( - season) 2024 UKY-Influenza Vaccine [...] ORDERABLES Final Re sult [facility] [address] [place] [address] * (ABNORMAL) Hemoglobin A1c (03/28/2018 3:57 PM [...] <6.0% Children and Adolescents <7.5% . Source: [place] [employer]. Standards of medical care in diabetes, 2017. Diabetes Care.2017:40 (suppl 1):S1-S135. . HbA1c assay performed by an ion-exchange chromatography method that is certified traceable to the DCCT. 03/28/2018 3:57 PM EDT 03/28/2018 4:27 PM EDT us [facility] BLOOD ORDERABLES Final Result SUNQUEST from Last 3 Months or Most Recently Relevant to Health Maintenance Insurance [facility] MEDICARE [facility] [employer] Care Teams Neon Sign Worker Relationship Specialty Start Date End Date Hansel Ruff MD [address] [place] [address] [address] [place] [address] PCP - General 02/26/24
--- NOTE | 2025-01-19 08:00 | FL_ITS ---
FINAL REPORT CLINICAL HISTORY: Worsening dysphagia 506.18 dap 1.14 fluoro FINDINGS: ESOPHAGRAM HISTORY: Abdominal pain, nausea. PROCEDURE: The patient ingested barium. Effervescent crystals were also administered. Spot and overhead films were obtained. FINDINGS: There is marked esophageal dysmotility with a corkscrew deformity of the esophagus. There is marked gastroesophageal reflux. There is narrowing of the distal esophagus. 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 Fluoroscopy time: 1 minute 14seconds Fluoro dose: 506.18 DAP in [employer] reviewed , interpreted and dictated by Dr. Shi. Transcribed by Hemal Becerra PA-C. Reviewed, Interpreted and Dictated by Monisha Shi MD Transcribed by ANJUM Leon Authenticated and [facility]
[2025-01-19] MEDS: BARIUM SULFATE(E-Z-AC);750ML BOTTLE 750 ML PO (08:19)
[2025-01-19] MEDS: BARIUM SULFATE (E-Z-HD 340GM);135ML BOTTLE 135 ML PO (08:19)
[2025-01-19] MEDS: E-Z-GASII EFFERVESCENT GRANULES;1PK 1 EACH PO (08:19)
== END 2025-01-19 23:59 | disposition home or self-care (01) ==
LOC: RAD 07:42
PROVIDERS: PCP Internal Medicine; Visit Provider Internal Medicine Gastroenterology
DX: K22.2 Esophageal obstruction (principal); K21.9 Gastro-esophageal reflux disease without esophagitis; K22.4 Dyskinesia of esophagus
CPT/HCPCS: 74220

== ENCOUNTER 2025-02-17 18:34 | Emergency (ER) | payer MEDICARE, OTHER, SELFPAY ==
[2025-02-17] VITALS (9 sets, daily range): BP systolic 122–158; BP diastolic 60–68; PULSE 60–71; RESP 16–20; TEMP 36.7–36.9; O2SAT 94–97; BMI 20.9
--- OUTSIDE RECORDS SUMMARY | 2025-02-17 18:48 | XMS_ITS | Clinical Summary ---
Author Organization [facility] Address [address] [place] [address] Care Team Providers Care Pallet Stone Inserter Name Role Phone Hansel Ruff MD Primary Care Provider Allergies Active Allergy Reactions Criticality Noted Date [...] or (1 - 1-dose 75+ series) 12/15/2023 [id number] Vaccine ( - season) 2024 UKY-Influenza Vaccine [...] ORDERABLES Final Re sult [facility] [address] [place] [address] * (ABNORMAL) Hemoglobin A1c (03/28/2018 3:57 PM [...] <6.0% Children and Adolescents <7.5% . Source: [place] [employer]. Standards of medical care in diabetes, 2017. Diabetes Care.2017:40 (suppl 1):S1-S135. . HbA1c assay performed by an ion-exchange chromatography method that is certified traceable to the DCCT. 03/28/2018 3:57 PM EDT 03/28/2018 4:27 PM EDT us [facility] BLOOD ORDERABLES Final Result SUNQUEST from Last 3 Months or Most Recently Relevant to Health Maintenance Insurance [facility] MEDICARE [facility] MEDICAID Care Teams Pallet Stone Inserter Relationship Specialty Start Date End Date aHnsel Ruff MD [address] [place] [address] [address] [place] [address] PCP - General 02/26/24
--- NOTE | 2025-02-17 19:00 | ECG_ITS ---
APPROVED REPORT Exam: Resting ECG HR:63 bpm ECG Measurements Heart Rate 63 AXES NH 162 P 47 QRSd 171 QRS -63 QT 476 T 102 QTc 483 Conclusion Ventricular paced rhythm at [address] or T wave changes concerning for ischemia Electronically signed by : Anahi Arceo, 02/18/2025 00:34:40
--- NOTE | 2025-02-17 19:17 | ED_ITS ---
<Statement entered by Anahi Arceo DO - 02/21/25 16:16> I was consulted by the [facility], and we discussed the complexity of problems being addressed. I approve the treatment and management plan for this patient's care in the emergency department, thus performing a substantial portion of the medical decision making. Anahi Arceo DO Discharge Plan Disposition Patient Disposition: Home, Self-Care Condition: Good Prescriptions Prescriptions: No Action nitroglycerin 0.3 mg tablet, sublingual 0.3 mg sublingual Q5M PRN (Reason: chest pain) Qty: 20 3RF Rx Instructions: do not exceed 3 doses per episode isosorbide dinitrate 10 mg tablet 10 mg PO TID Qty: 90 12RF Rx Instructions: allow nitrate-free interval of 12-14 hrs per 24-hr period (DME) blood pressure monitor Kit See Rx Instructions .Route Qty: 1 0RF Rx Instructions: As directed polyethylene glycol 3350 [Miralax] 17 gram/dose powder 17 g PO DAILY metoprolol succinate 50 mg tablet extended release 24 hr 50 mg PO BID Qty: 180 1RF fluconazole 150 mg tablet 150 mg PO Q3D Qty: 2 0RF nystatin 100,000 unit/gram cream 1 applic topical TID Qty: 60 1RF Rx Instructions: Apply to groin rash until clear famotidine 20 mg tablet See Rx Instructions .ROUTE .COMPLEX Qty: 90 3RF Dose Instruction: TAKE ONE TABLET BY MOUTH ONCE A DAY FOR GERD Rx Instructions: TAKE ONE TABLET BY MOUTH ONCE A DAY FOR GERD clopidogrel 75 mg tablet See Rx Instructions .ROUTE .COMPLEX Qty: 90 1RF Dose Instruction: TAKE ONE TABLET BY MOUTH DAY Rx Instructions: TAKE ONE TABLET BY MOUTH DAY metformin 500 mg tablet 500 mg PO BID Qty: 180 1RF atorvastatin 40 mg tablet 40 mg PO DAILY Qty: 90 1RF venlafaxine 37.5 mg tablet 37.5 mg PO BID Qty: 180 1RF fluticasone propionate 50 mcg/actuation spray,suspension 2 spray intranasal DAILY Qty: 16 5RF gabapentin 100 mg capsule See Rx Instructions .ROUTE .COMPLEX Qty: 60 0RF Dose Instruction: TAKE 2 CAPSULES (200 MG) BY MOUTH AT BEDTIME Rx Instructions: TAKE 2 CAPSULES (200 MG) BY MOUTH AT BEDTIME dicyclomine 10 mg capsule 10 mg PO BID Qty: 60 12RF Rx Instructions: Please take 1 capsule p.o. twice daily ondansetron 4 mg tablet,disintegrating 4 mg PO Q8H PRN (Reason: nausea and vomiting) Qty: 30 0RF furosemide 20 mg tablet See Rx Instructions .ROUTE .COMPLEX Qty: 30 1RF Dose Instruction: TAKE 1 TABLET BY MOUTH EVERY MORNING FOR 7 DAYS NEEDED Rx Instructions: TAKE 1 TABLET BY MOUTH EVERY MORNING FOR 7 DAYS NEEDED omeprazole 20 mg capsule,delayed release(DR/EC) 20 mg PO DAILY Qty: 90 1RF quetiapine [Seroquel] 50 mg tablet 50 mg PO HS Qty: 90 1RF diazepam 2 mg tablet 2 mg PO TID Qty: 90 2RF Probiotic 15 billion cell capsule, sprinkle 1 cap PO DAILY 30 Days Qty: 30 0RF Rx Instructions: do not crush/chew/cut; swallow whole OR may open and sprinkle in cold drink/food acetaminophen [Tylenol] 325 mg tablet 325 mg PO QID PRN (Reason: pain) Qty: 30 0RF aspirin 81 mg tablet,chewable 81 mg PO DAILY benzonatate 200 mg capsule 200 mg PO TID PRN (Reason: cough) Qty: 20 0RF loperamide 2 mg capsule 2 mg PO Q6H PRN (Reason: loose stool) 5 Days Qty: 20 0RF Rx Instructions: Please take 4 mg initially, followed by 2 mg after each loose stool, maximum 16 mg/day Referrals Follow up/Referrals: Hansel Ruff MD [Primary Care Provider, Medical] - See instructions Gibson Campbell II, MD [Staff Physician, Gastroenterology] - See instructions Activity Restrictions/Add. Instructions Additional Instructions/Restrictions: Increase fluids and rest. Please follow-up with Dr. Campbell as scheduled. Return to the ED if any problems or concerns. Clinical Impressions Clinical Impression: GERD (gastroesophageal reflux disease) Instructions Patient Instructions: Gastroesophageal Reflux Disease--Overview, DI for Acute Abdominal Pain, GERD Diet Print Language Print Language: Irish Discharge ED Provider: Anahi Arceo Adult HPI <Shari Hernadez (ED), JUNIOR PROJECT MANAGER - Last Filed: 02/17/25 21:56> General Chief complaint: Abdominal Pain Stated complaint: abdominal pain Time Seen by Provider: 02/17/25 18:45 Mode of Arrival: Ambulatory Source of Information: Patient Description of Symptoms (Recalled from ER Triage Doc. by RN): patient presents to the emergency room for abdominal pain/ epigastric pain. patient states that it's a 10/, and it has been going on for 3 weeks. History of Present Illness HPI narrative: 74-year-old female presents to the ED today for complaints of epigastric discomfort and nausea for 2 weeks. She denies any vomiting, diarrhea, no fevers, no chest pain no shortness of breath. No other symptoms at this time. She saw Dr. Campbell last month and was scoped. She sees him next month again for follow-up. She has a long history of abdominal pain and has been scanned many times. Patient looks well today. Her blood pressure is slightly elevated today but she has not taken her isosorbide yet. Related Data Home Medications ?Medication ?Instructions ?Recorded ?Confirmed aspirin 81 mg chewable tablet 81 mg PO DAILY 07/21/23 02/21/25 polyethylene glycol 3350 17 17 g PO DAILY 11/16/24 gram/dose oral powder (Miralax) Previous Rx's ?Medication ?Instructions ?Recorded clopidogrel 75 mg tablet See Rx Instructions .Route 1 08/13/23 .COMPLEX #90 tabs famotidine 20 mg tablet See Rx Instructions .Route 1 08/13/23 .COMPLEX #90 tabs lactobacillus combo no.11 15 1 cap PO DAILY 30 days #3 0 caps 06/16/24 billion cell sprinkle capsule (Probiotic) acetaminophen 325 mg tablet 325 mg PO QID PRN pain #30 tabs 07/15/24 (Tylenol) atorvastatin 40 mg tablet 40 mg PO DAILY #90 tabs 07/14 08/05 metformin 500 mg tablet 500 mg PO BID #180 tabs 07/14 08/05 blood pressure monitor #1 ea 10/10/24 venlafaxine 37.5 mg tablet 37.5 mg PO BID mood #180 ta bs 11/10/24 nitroglycerin 0.3 mg sublingual 0.3 mg sublingual Q5M PRN chest 11/15/24 tablet pain #20 tabs fluticasone propionate 50 2 spray intranasal DAILY #16 grams 12/11/24 mcg/actuation nasal spray,suspension metoprolol succinate 50 mg 50 mg PO BID #180 tabs 12/10 tablet,extended release 24 hr gabapentin 100 mg capsule See Rx Instructions .Route 0 12/22/24 .COMPLEX #60 caps isosorbide dinitrate 10 mg tablet 10 mg PO TID #90 tab s 12/27/24 benzonatate 200 mg capsule 200 mg PO TID PRN cough #20 caps 01/03/25 loperamide 2 mg capsule 2 mg PO Q6H PRN loose stool 5 days 01/06/25 #20 caps dicyclomine 10 mg capsule 10 mg PO BID #60 caps ondansetron 4 mg disintegrating 4 mg PO Q8H PRN nausea and 01/17/25 tablet vomiting #30 tabs furosemide 20 mg tablet See Rx Instructions .Route 0 01/24/25 .COMPLEX #30 tabs fluconazole 150 mg tablet 150 mg PO Q3D 2 doses #2 tab s 02/08/25 nystatin 100,000 unit/gram topical 1 applic topical TI D Apply to 02/08/25 cream groin rash until clear. #60 grams diazepam 2 mg tablet 2 mg PO TID #90 tabs 5 omeprazole 20 mg capsule,delayed 20 mg PO DAILY #90 ca ps 02/09/25 release quetiapine 50 mg tablet (Seroquel) 50 mg PO HS #90 tab s 02/09/25 Allergies Allergy/AdvReac Type Severity Reaction Status Date / Time codeine (CODEINE) Allergy Unknown WEAK Verified 02/21/25 14:16 hydrochlorothiazide Allergy Unknown I-RASH Verified 02/21/25 14:16 (HYDROCHLOROTHIAZIDE) hydrocodone (HYDROCODONE) Allergy Unknown I-RASH Verified 02/21/25 14:16 metoclopramide Allergy Unknown SLURRED Verified 02/21/25 14:16 (METOCLOPRAMIDE) SPEECH, WEAK nifedipine (NIFEDIPINE) Allergy Unknown I-HIVES Verified 02/21/25 14:16 prazosin (PRAZOSIN) Allergy Unknown ITCHING/WEA Verified 02/21/25 14:16 K triamterene (TRIAMTERENE) Allergy Unknown I-RASH Verified 02/21/25 14:16 [facility] <Shari Hernadez (ED), JUNIOR PROJECT MANAGER - Last Filed: 02/17/25 21:56> [facility] Disclaimer: The information contained in this section may have been updated after the patient was seen, as this information can be updated by other users. 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 Family History Other Family history of cancer Family history of diabetes mellitus type II Family history of hypertension Family history of myocardial infarction Social History Smoking Status: Never smoker second hand exposure: Yes alcohol intake: never substance use type: denies use current occupational status: retired and disabled Travel in the last 8 weeks?: None household members: none housing: apartment lives independently: Yes marital status: single education level: middle school service: No assisted: No current occupational exposures/hazards: No caffeine: No do you feel safe at home: Yes victim of physical abuse: No victim of emotional abuse: No victim of sexual abuse: No would you like helpful sources: No Have you lived/traveled outside [place] in past 30 days?: No Contact w/someone who lives/traveled outside US past 30 days?: No Exposure to someone with infectious disease in past 14 days?: No Do you have a fever (greater than 100.4 F or 38 C)?: No Have you tested positive for COVID-19?: No Exposed to someone with COVID-19 in past 14 days?: No Do you have a sore throat?: No Do you have a cough?: No Do you have shortness of breath?: No Do you have a headache?: No Do you have any weakness?: No Are you experiencing any nausea/vomitting?: No Do you have any diarrhea?: No Are you experiencing any unusual bleeding?: No Do you have any muscle aches/pain?: No Do you have any abdominal pain?: No Are you experiencing loss of taste or smell?: No Other Medical History Have you received the Flu Vaccine for this season: No Have you received the Pneumonia Vaccine: Yes <Shari Hernadez (ED), JUNIOR PROJECT MANAGER - Last Filed: 02/17/25 21:56> ROS Obtained: Yes Systems reviewed as appropriate & no additional complaints except as documented Constitutional Constitutional: Reports as per HPI Physical Exam <Shari Pearsonmiguelmele (ED), JUNIOR PROJECT MANAGER - Last Filed: 02/17/25 21:56> General General appearance: alert Head Head exam: normocephalic Eye Eye exam: Present PERRL and EOMI ENT ENT exam: Present normal oropharynx and mucous membranes moist Neck Neck exam: Present full ROM and trachea midline Respiratory Respiratory exam: Present normal lung sounds bilaterally Cardiovascular Cardiovascular exam: Present regular rate, normal rhythm, normal heart sounds, +S1 and +S2 Abdominal Exam Abdominal exam: Present soft and normal bowel sounds Abdominal tenderness: Present epigastrium Extremities Exam Extremities exam: Present full ROM and normal capillary refill Neurological Exam Neurological exam: Present alert and oriented X3 Skin Skin exam: Present warm, dry and intact Medical Decision Making <Shari Pearsondiana (ED), JUNIOR PROJECT MANAGER - Last Filed: 02/17/25 21:56> Medical Records Screening: Per USPSTF and CDC recommendations, given the prevalence of disease in our region, it is our hospital?s policy to screen for HIV and viral Hepatitis for all patients aged 18 and over and those with ongoing risk factors. Chet Inquiry Pt receiving controlled substance: No Vital Signs: 02/17/25 18:38 02/17/25 19:01 02/17/25 19:30 Temperature 98.5 F Temperature Source Oral Pulse Rate 66 68 Pulse Rate [Right Radial] 71 Respiratory Rate 16 Blood Pressure 146/63 H 122/63 Blood Pressure [Right Arm] 158/68 H Blood Pressure Mean [Right Arm] 98 Blood Pressure Source [Right Arm] Automatic Cuff Blood Pressure Position [Right Arm] Sitting 02 Sat by Pulse Oximetry 96 95 94 L Oxygen Delivery Method Room Air 02/17/25 20:00 02/17/25 21:00 02/17/25 21:15 Temperature Temperature Source Pulse Rate 64 60 60 Pulse Rate [Right Radial] Respiratory Rate Blood Pressure 130/63 126/60 Blood Pressure [Right Arm] Blood Pressure Mean [Right Arm] Blood Pressure Source [Right Arm] Blood Pressure Position [Right Arm] 02 Sat by Pulse Oximetry 96 97 96 Oxygen Delivery Method 02/17/25 21:30 02/17/25 21:45 02/17/25 21:51 Temperature 98.1 F Temperature Source Pulse Rate 60 60 60 Pulse Rate [Right Radial] Respiratory Rate 20 Blood Pressure 126/65 126/65 Blood Pressure [Right Arm] Blood Pressure Mean [Right Arm] Blood Pressure Source [Right Arm] Blood Pressure Position [Right Arm] 02 Sat by Pulse Oximetry 95 97 Oxygen Delivery Method Room Air Lab Data Lab Results 02/17/25 20:37: WBC 8.3, RBC 3.30 L, Hgb 10.3 L, Hct 31.1 L, MCV 94.2, MCH 31.2, MCHC 33.1, RDW 13.6, Plt Count 205, MPV 10.5 H, Neut % (Auto) 73.3, Lymph % (Auto) 16.6, Titus % (Auto) 8.7, Eos % (Auto) 0.4, Baso % (Auto) 0.5, Neut # (Auto) 6.1, Lymph # (Auto) 1.4, Titus # (Auto) 0.7, Eos # (Auto) 0.0, Baso # (Auto) 0.0, Sodium 131 L, Potassium 4.2, Chloride 98, Carbon Dioxide 27, Anion Gap 10.2, BUN 22 H, Creatinine 0.70, Estimated Creat Clear 42, Estimated GFR 81, Est GFR ( Amer) 98, Glucose 158 H, Calcium 9.6, Magnesium 2.0, Total Bilirubin 0.5, AST 28, ALT 19, Alkaline Phosphatase 72, Troponin I < 0.01, Total Protein 6.8, Albumin 4.6, Globulin 2.2, Albumin/Globulin Ratio 2.1 H, Lipase 88 02/18/25 06:33: WBC Cancelled, Corrected WBC Cancelled, RBC Cancelled, Hgb Cancelled, Hct Cancelled, MCV Cancelled, MCH Cancelled, MCHC Cancelled, RDW Cancelled, Plt Count Cancelled, MPV Cancelled, Neut % (Auto) Cancelled, Lymph % (Auto) Cancelled, Titus % (Auto) Cancelled, Eos % (Auto) Cancelled, Baso % (Auto) Cancelled, Neut # (Auto) Cancelled, Lymph # (Auto) Cancelled, Titus # (Auto) Cancelled, Eos # (Auto) Cancelled, Baso # (Auto) Cancelled, Sodium Cancelled, Potassium Cancelled, Chloride Cancelled, Carbon Dioxide Cancelled, Anion Gap Cancelled, BUN Cancelled, Creatinine Cancelled, Estimated Creat Clear Cancelled, Estimated GFR Cancelled, Est GFR ( Amer) Cancelled, Glucose Cancelled, Calcium Cancelled, Total Bilirubin Cancelled, AST Cancelled, ALT Cancelled, Alkaline Phosphatase Cancelled, Troponin I Cancelled, Total Protein Cancelled, Albumin Cancelled, Globulin Cancelled, Albumin/Globulin Ratio Cancelled, Lipase Cancelled 02/17/25 20:37 02/17/25 20:37 Orders (Tests/Meds): ED MEDICATIONS Discontinued Medications Generic Name Dose Route Start Last Admin Trade Name Freq PRN Reason Stop Dose Admin Famotidine 20 mg 02/17/25 18:59 02/17/25 19:35 Famotidine 20mg/2ml Vial IV 02/17/25 19:00 Not Given ONCE ONE Famotidine 20 mg 02/17/25 19:36 02/17/25 19:38 Famotidine 20mg Tablet PO 02/17/25 19:37 20 mg ONCE ONE Administration Sodium Chloride 8 ml 02/17/25 18:59 Sodium Chloride 0.9% 10ml Vial IV 03/19/25 18:58 NEEDED PRN dilute pepcid ORDERS Category Date Time Status CBC [Complete Blood Count Auto Diff] Stat Lab 02/17/25 20:37 Completed Comprehensive Metabolic Panel Stat Lab 02/17/25 20:37 Completed Lipase Stat Lab 02/17/25 20:37 Completed Magnesium Stat Lab 02/17/25 20:37 Completed Trop I [Troponin I] Stat Lab 02/17/25 20:37 Completed Medical Decision Narrative: patient is a 74-year-old presenting to the emergency department for evaluation of epigastric pain. Patient is hemodynamically stable and nontoxic-appearing upon arrival, afebrile. Differential diagnosis includes viral illness, reflux, CAD, among others. Workup will be conducted with hematologic labs. Initial inventions include GI cocktail and famotidine. Initial workup reviewed by me [hematologic labs are remarkable for:]. [Imaging informally interpreted by me and remarkable for:] [Formal imaging read remarkable for:] Upon repeat evaluation [patient's pain is improved, appears better perfused, appears the same, appears worse, etc.]. Due to this [additional interventions, patient is appropriate for discharge, patient requires admission, etc.]. <Anahi Arceo, DO - Last Filed: 02/21/25 16:15> Medical Records Medical records reviewed: Yes I reviewed the patient's medical records. Vital Signs: 02/17/25 18:38 02/17/25 19:01 02/17/25 19:30 Temperature 98.5 F Temperature Source Oral Pulse Rate 66 68 Pulse Rate [Right Radial] 71 Respiratory Rate 16 Blood Pressure 146/63 H 122/63 Blood Pressure [Right Arm] 158/68 H Blood Pressure Mean [Right Arm] 98 Blood Pressure Source [Right Arm] Automatic Cuff Blood Pressure Position [Right Arm] Sitting 02 Sat by Pulse Oximetry 96 95 94 L Oxygen Delivery Method Room Air 02/17/25 20:00 02/17/25 21:00 02/17/25 21:15 Temperature Temperature Source Pulse Rate 64 60 60 Pulse Rate [Right Radial] Respiratory Rate Blood Pressure 130/63 126/60 Blood Pressure [Right Arm] Blood Pressure Mean [Right Arm] Blood Pressure Source [Right Arm] Blood Pressure Position [Right Arm] 02 Sat by Pulse Oximetry 96 97 96 Oxygen Delivery Method 02/17/25 21:30 02/17/25 21:45 02/17/25 21:51 Temperature 98.1 F Temperature Source Pulse Rate 60 60 60 Pulse Rate [Right Radial] Respiratory Rate 20 Blood Pressure 126/65 126/65 Blood Pressure [Right Arm] Blood Pressure Mean [Right Arm] Blood Pressure Source [Right Arm] Blood Pressure Position [Right Arm] 02 Sat by Pulse Oximetry 95 97 Oxygen Delivery Method Room Air Lab Data Lab results reviewed: Yes I reviewed the patient's lab results. Lab Results 02/17/25 20:37: WBC 8.3, RBC 3.30 L, Hgb 10.3 L, Hct 31.1 L, MCV 94.2, MCH 31.2, MCHC 33.1, RDW 13.6, Plt Count 205, MPV 10.5 H, Neut % (Auto) 73.3, Lymph % (Auto) 16.6, Titus % (Auto) 8.7, Eos % (Auto) 0.4, Baso % (Auto) 0.5, Neut # (Auto) 6.1, Lymph # (Auto) 1.4, Titus # (Auto) 0.7, Eos # (Auto) 0.0, Baso # (Auto) 0.0, Sodium 131 L, Potassium 4.2, Chloride 98, Carbon Dioxide 27, Anion Gap 10.2, BUN 22 H, Creatinine 0.70, Estimated Creat Clear 42, Estimated GFR 81, Est GFR ( Amer) 98, Glucose 158 H, Calcium 9.6, Magnesium 2.0, Total Bilirubin 0.5, AST 28, ALT 19, Alkaline Phosphatase 72, Troponin I < 0.01, Total Protein 6.8, Albumin 4.6, Globulin 2.2, Albumin/Globulin Ratio 2.1 H, Lipase 88 02/18/25 06:33: WBC Cancelled, Corrected WBC Cancelled, RBC Cancelled, Hgb Cancelled, Hct Cancelled, MCV Cancelled, MCH Cancelled, MCHC Cancelled, RDW Cancelled, Plt Count Cancelled, MPV Cancelled, Neut % (Auto) Cancelled, Lymph % (Auto) Cancelled, Titus % (Auto) Cancelled, Eos % (Auto) Cancelled, Baso % (Auto) Cancelled, Neut # (Auto) Cancelled, Lymph # (Auto) Cancelled, Titus # (Auto) Cancelled, Eos # (Auto) Cancelled, Baso # (Auto) Cancelled, Sodium Cancelled, Potassium Cancelled, Chloride Cancelled, Carbon Dioxide Cancelled, Anion Gap Cancelled, BUN Cancelled, Creatinine Cancelled, Estimated Creat Clear Cancelled, Estimated GFR Cancelled, Est GFR ( Amer) Cancelled, Glucose Cancelled, Calcium Cancelled, Total Bilirubin Cancelled, AST Cancelled, ALT Cancelled, Alkaline Phosphatase Cancelled, Troponin I Cancelled, Total Protein Cancelled, Albumin Cancelled, Globulin Cancelled, Albumin/Globulin Ratio Cancelled, Lipase Cancelled Orders (Tests/Meds): ED MEDICATIONS Discontinued Medications Generic Name Dose Route Start Last Admin Trade Name Freq PRN Reason Stop Dose Admin Famotidine 20 mg 02/17/25 18:59 02/17/25 19:35 Famotidine 20mg/2ml Vial IV 02/17/25 19:00 Not Given ONCE ONE Famotidine 20 mg 02/17/25 19:36 02/17/25 19:38 Famotidine 20mg Tablet PO 02/17/25 19:37 20 mg ONCE ONE Administration Sodium Chloride 8 ml 02/17/25 18:59 Sodium Chloride 0.9% 10ml Vial IV 03/19/25 18:58 NEEDED PRN dilute pepcid ORDERS Category Date Time Status CBC [Complete Blood Count Auto Diff] Stat Lab 02/17/25 20:37 Completed Comprehensive Metabolic Panel Stat Lab 02/17/25 20:37 Completed Lipase Stat Lab 02/17/25 20:37 Completed Magnesium Stat Lab 02/17/25 20:37 Completed Trop I [Troponin I] Stat Lab 02/17/25 20:37 Completed Medical Decision Narrative: patient is a 74-year-old presenting to the emergency department for evaluation of epigastric pain. Patient is hemodynamically stable and nontoxic-appearing upon arrival, afebrile. Differential diagnosis includes viral illness, reflux, CAD, among others. Workup will be conducted with hematologic labs. Initial inventions include GI cocktail and famotidine. We reviewed management of abdominal health: CBC shows no leukocytosis, hemoglobin stable. CMP is unremarkable. Initial troponin was less than 0.01. EKG was reviewed and interpreted by myself and showed normal sinus rhythm without acute ST-T wave changes negative ischemia. Patient had symptomatic improvement in the emergency department after GI cocktail. At this time, I feel the patient is appropriate for discharge home. Patient has no tenderness on exam on reassessment. Patient's pain all epigastric in nature. Low concern for other intra-abdominal pathology at this time. Critical Care <Shari Hernadez (ED), JUNIOR PROJECT MANAGER - Last Filed: 02/17/25 21:56> Critical Care Time Critical Care Time: No
[2025-02-17] MEDS: FAMOTIDINE 20MG TABLET 20 MG PO (19:38)
[2025-02-17 20:44] LABS: Hematocrit 31.1 % (37.0-47.0); Hemoglobin 10.3 g/dL (12.2-16.2); Immature Granulocytes % 0.5 %; Mean Corpuscular HGB Conc 33.1 g/dL (31.8-35.4); Mean Corpuscular Hemoglobin 31.2 pg (27.0-31.2); Mean Corpuscular Volume 94.2 fl (81-99); Nucleated Red Blood Cells % 0 %; Platelet Count 205 K/mm3 (142-424); Red Blood Count 3.30 M/mm3 (4.20-5.40); Red Cell Distribution Width-SD 46.5 fL; White Blood Count 8.3 K/mm3 (4.8-10.8)
[2025-02-17 20:58] LABS: Albumin Level 4.6 g/dl (3.5-5.0); Chloride 98 mmol/L (98-107)
[2025-02-17 20:59] LABS: Potassium 4.2 mmoL/L (3.5-5.1); Sodium 131 mmol/L (136-145)
[2025-02-17 21:01] LABS: Alanine Aminotransferase 19 U/L (12-78); Anion Gap 10.2 mEq/L (5-15); Aspartate Amino Transferase 28 U/L (14-36); Blood Urea Nitrogen 22 mg/dl (7-17); Carbon Dioxide 27 mmol/L (22.0-30.0); Creatinine Clearance Estimated 42 mL/min (50-200); Creatinine,Serum 0.70 mg/dl (0.52-1.04); Estimated Glomerular Filt Rate 81 ml/min (>60); GFR (African American) 98 ML/MIN (>60)
[2025-02-17 21:02] LABS: Albumin/Globulin Ratio 2.1 (1.1-1.8); Alkaline Phosphatase 72 U/L (38-126); Bilirubin,Total 0.5 mg/dl (0.2-1.3); Calcium 9.6 mg/dl (8.4-10.2); Globulin 2.2 g/dL (1.3-3.2); Glucose 158 mg/dl (74-100); Lipase 88 U/L (23-300); Magnesium 2.0 mg/dl (1.6-2.3); Total Protein,Serum 6.8 g/dl (6.3-8.2)
[2025-02-17 21:44] LABS: Troponin I < 0.01 ng/ml (0.00-0.034)
--- NOTE | 2025-02-18 07:29 | ECG_ITS ---
APPROVED REPORT Exam: Resting ECG HR:65 bpm ECG Measurements Heart Rate 65 AXES MD 165 P 70 QRSd 172 QRS -62 QT 463 T 101 QTc 474 Conclusion ELECTRONIC VENTRICULAR PACEMAKER ABNORMAL RHYTHM ECG UNCONFIRMED REPORT Electronically signed by : LETTY LLANES, 02/19/2025 23:49:13
== END 2025-02-17 22:04 | disposition home or self-care (01) ==
PROVIDERS: Nurse Practitioner; Emergency Provider Student in an Organized Health Care Education/Training Program; PCP Internal Medicine
DX: R10.816 Epigastric abdominal tenderness (principal); K21.9 Gastro-esophageal reflux disease without esophagitis; E87.1 Hypo-osmolality and hyponatremia; R11.0 Nausea
CPT/HCPCS: 80053; 83690; 83735; 84484; 85025; 93005; 99284

== ENCOUNTER 2025-02-18 06:18 | Emergency (ER) | payer MEDICARE, OTHER, SELFPAY ==
[2025-02-18] VITALS (7 sets, daily range): BP systolic 143–196; BP diastolic 65–95; PULSE 67–80; RESP 16–18; TEMP 36.7; O2SAT 97–100; BMI 25.7
--- NOTE | 2025-02-18 06:46 | CT_ITS ---
PROCEDURE INFORMATION: Exam: CT Abdomen And Pelvis With Contrast Exam date and time: 02/18/2025 7:13 AM Age: 74 years old Clinical indication: Other: Epigastric pain, regurg food, HX corkscrew esoph; Abdominal pain TECHNIQUE: Imaging protocol: Computed tomography of the abdomen and pelvis with contrast. Radiation optimization: All CT scans at this facility use at least one of these dose optimization techniques: automated exposure control; mA and/or kV adjustment per patient size (includes targeted exams where dose is matched to clinical indication); or iterative reconstruction. Contrast material: ISOVUE; Contrast volume: 75 ml; Contrast route: IV; COMPARISON: CT ABDOMEN PELVIS W CON 01/18/2024 4:12 PM FINDINGS: Tubes, catheters and devices: Transvenous pacemaker leads in the right heart Lungs: Calcified granuloma in the left lower lobe Heart: Aortic valve replacement Diaphragm: Moderate hiatal hernia Liver: 3.2 cm Complex mass in the right lobe of the liver. It measures 37 Hounsfield units. Additional smaller nodules in the liver are not clearly cysts.. Gallbladder and biliary ducts: Possible gallstone or sludge in the gallbladder. Series 3, image 35. Pancreas: Fatty infiltration of the pancreas Spleen: Normal. No splenomegaly. Adrenal glands: Normal. No mass. Kidneys and ureters: Normal. No hydronephrosis. Stomach and bowel: Diverticulosis of the rectosigmoid. No tru diverticulitis Appendix: No evidence of appendicitis. Intraperitoneal space: Unremarkable. No free air. No significant fluid collection. Vasculature: Unremarkable. No abdominal aortic aneurysm. Lymph nodes: Unremarkable. No enlarged lymph nodes. Urinary bladder: Unremarkable as visualized. Reproductive: Surgical resection of the uterus Bones/joints: Median sternotomy. Compression screw in the left hip. Intramedullary venessa in the left femur Soft tissues: Anterior mesh herniorrhaphy series 3, image 28 -32. IMPRESSION: 1. 3.2 cm Complex mass in the right lobe of the liver. It measures 37 Hounsfield units. Additional smaller nodules in the liver are not clearly cysts.. Recommend liver MRI for further evaluation 2. Possible gallstone or sludge in the gallbladder. Series 3, image 35. Gallbladder ultrasound may be helpful 3. Anterior mesh herniorrhaphy series 3, image 28 -32.
--- NOTE | 2025-02-18 06:46 | XR_ITS ---
PROCEDURE INFORMATION: Exam: XR Chest Exam date and time: 02/18/2025 6:55 AM Age: 74 years old Clinical indication: Other: Upper abd pain TECHNIQUE: Imaging protocol: Radiologic exam of the chest. Views: 1 view. COMPARISON: CR XR CHEST PORTABLE 01/03/2025 11:05 AM FINDINGS: Tubes, catheters and devices: Transvenous pacemaker leads are stable Lungs: Unremarkable. No consolidation. Pleural spaces: Unremarkable. No pleural effusion. No pneumothorax. Heart/Mediastinum: Unremarkable. No cardiomegaly. Bones/joints: Median sternotomy IMPRESSION: No acute findings.
--- NOTE | 2025-02-18 06:51 | [facility].EDGENADL ---
Discharge Plan Disposition Patient Disposition: Home, Self-Care Condition: Good Prescriptions Prescriptions: No Action nitroglycerin 0.3 mg tablet, sublingual 0.3 mg sublingual Q5M PRN (Reason: chest pain) Qty: 20 3RF Rx Instructions: do not exceed 3 doses per episode isosorbide dinitrate 10 mg tablet 10 mg PO TID Qty: 90 12RF Rx Instructions: allow nitrate-free interval of 12-14 hrs per 24-hr period (DME) blood pressure monitor Kit See Rx Instructions .Route Qty: 1 0RF Rx Instructions: As directed polyethylene glycol 3350 [Miralax] 17 gram/dose powder 17 g PO DAILY metoprolol succinate 50 mg tablet extended release 24 hr 50 mg PO BID Qty: 180 1RF fluconazole 150 mg tablet 150 mg PO Q3D Qty: 2 0RF nystatin 100,000 unit/gram cream 1 applic topical TID Qty: 60 1RF Rx Instructions: Apply to groin rash until clear famotidine 20 mg tablet See Rx Instructions .ROUTE .COMPLEX Qty: 90 3RF Dose Instruction: TAKE ONE TABLET BY MOUTH ONCE A DAY FOR GERD Rx Instructions: TAKE ONE TABLET BY MOUTH ONCE A DAY FOR GERD clopidogrel 75 mg tablet See Rx Instructions .ROUTE .COMPLEX Qty: 90 1RF Dose Instruction: TAKE ONE TABLET BY MOUTH DAY Rx Instructions: TAKE ONE TABLET BY MOUTH DAY metformin 500 mg tablet 500 mg PO BID Qty: 180 1RF atorvastatin 40 mg tablet 40 mg PO DAILY Qty: 90 1RF venlafaxine 37.5 mg tablet 37.5 mg PO BID Qty: 180 1RF fluticasone propionate 50 mcg/actuation spray,suspension 2 spray intranasal DAILY Qty: 16 5RF gabapentin 100 mg capsule See Rx Instructions .ROUTE .COMPLEX Qty: 60 0RF Dose Instruction: TAKE 2 CAPSULES (200 MG) BY MOUTH AT BEDTIME Rx Instructions: TAKE 2 CAPSULES (200 MG) BY MOUTH AT BEDTIME dicyclomine 10 mg capsule 10 mg PO BID Qty: 60 12RF Rx Instructions: Please take 1 capsule p.o. twice daily ondansetron 4 mg tablet,disintegrating 4 mg PO Q8H PRN (Reason: nausea and vomiting) Qty: 30 0RF furosemide 20 mg tablet See Rx Instructions .ROUTE .COMPLEX Qty: 30 1RF Dose Instruction: TAKE 1 TABLET BY MOUTH EVERY MORNING FOR 7 DAYS NEEDED Rx Instructions: TAKE 1 TABLET BY MOUTH EVERY MORNING FOR 7 DAYS NEEDED omeprazole 20 mg capsule,delayed release(DR/EC) 20 mg PO DAILY Qty: 90 1RF quetiapine [Seroquel] 50 mg tablet 50 mg PO HS Qty: 90 1RF diazepam 2 mg tablet 2 mg PO TID Qty: 90 2RF Probiotic 15 billion cell capsule, sprinkle 1 cap PO DAILY 30 Days Qty: 30 0RF Rx Instructions: do not crush/chew/cut; swallow whole OR may open and sprinkle in cold drink/food acetaminophen [Tylenol] 325 mg tablet 325 mg PO QID PRN (Reason: pain) Qty: 30 0RF aspirin 81 mg tablet,chewable 81 mg PO DAILY benzonatate 200 mg capsule 200 mg PO TID PRN (Reason: cough) Qty: 20 0RF loperamide 2 mg capsule 2 mg PO Q6H PRN (Reason: loose stool) 5 Days Qty: 20 0RF Rx Instructions: Please take 4 mg initially, followed by 2 mg after each loose stool, maximum 16 mg/day Referrals Follow up/Referrals: Juan Jansen MD [Staff Physician, General Surgery] - See instructions Activity Restrictions/Add. Instructions Additional Instructions/Restrictions: Continue taking your prescribed medications. I do encourage you to follow-up with Dr. Campbell as scheduled. I am referring you to Dr. Jansen with the general surgery team as you were found to have sludge in your gallbladder but no evidence of an infected gallbladder. If you develop any new or worsening symptoms, or if you become concerned for your health for any reason, return to the emergency department for evaluation Clinical Impressions Clinical Impression: Liver mass, right lobe, Nausea and vomiting, Hiatal hernia, Biliary sludge Instructions Patient Instructions: DI for Acute Abdominal Pain Print Language Print Language: Bulgarian Discharge ED Provider: Romaine Mitchell General Adult HPI <Felicita Klein MD - Last Filed: 02/18/25 07:02> General Chief complaint: Abdominal Pain Stated complaint: nausea Time Seen by Provider: 02/18/25 06:45 Mode of Arrival: EMS Source of Information: Patient and EMS Description of Symptoms (Recalled from ER Triage Doc. by RN): Pt presents via ems with c/o abd pain and nausea that is unchanged since being in this ED a few hours ago. Pt reports I haven't slept a wink History of Present Illness HPI narrative: 74-year-old female well-known to this ER presents less than 12 hours since the time of discharge from her previous visit for the same symptoms which brought her to the ER yesterday. Patient has upper abdominal pain and nausea but no actual vomiting. Patient has history of this exact complaint and has had numerous, extensive workups. She follows with GI and review of recent GI records demonstrate findings of achalasia, corkscrew esophagus, patient has been recommended to use peppermint oil, Iberogast, and prescribed isosorbide dinitrate. Patient has not taken her isosorbide this morning though it is prescribed 3 times a day. She did not take the medications at home that are supposed to help her with the symptoms, instead she called 911 and presented to the ER. Patient is tearful and agitated when she arrives saying that we are supposed to help her but she has not slept a wink since leaving the ER last night. She has had no change in her symptoms, no chest pain or difficulty breathing, no diarrhea or constipation. No urinary symptoms. Related Data Home Medications ?Medication ?Instructions ?Recorded ?Confirmed aspirin 81 mg chewable tablet 81 mg PO DAILY 07/21/23 02/08/25 polyethylene glycol 3350 17 17 g PO DAILY 11/16/24 02/08/25 gram/dose oral powder (Miralax) Previous Rx's ?Medication ?Instructions ?Recorded clopidogrel 75 mg tablet See Rx Instructions .Route 06/12/24 .COMPLEX #90 tabs famotidine 20 mg tablet See Rx Instructions .Route 06/12/24 .COMPLEX #90 tabs lactobacillus combo no.11 15 1 cap PO DAILY 30 days #30 caps 06/16/24 billion cell sprinkle capsule (Probiotic) acetaminophen 325 mg tablet 325 mg PO QID PRN pain #30 tabs 07/15/24 (Tylenol) atorvastatin 40 mg tablet 40 mg PO DAILY #90 tabs 08/11/24 metformin 500 mg tablet 500 mg PO BID #180 tabs 08/11/24 blood pressure monitor #1 ea 10/10/24 venlafaxine 37.5 mg tablet 37.5 mg PO BID mood #180 tabs 11/10/24 nitroglycerin 0.3 mg sublingual 0.3 mg sublingual Q5M PRN chest 11/15/24 tablet pain #20 tabs fluticasone propionate 50 2 spray intranasal DAILY #16 grams 12/11/24 mcg/actuation nasal spray,suspension metoprolol succinate 50 mg 50 mg PO BID #180 tabs 12/19/24 tablet,extended release 24 hr gabapentin 100 mg capsule See Rx Instructions .Route 12/22/24 .COMPLEX #60 caps isosorbide dinitrate 10 mg tablet 10 mg PO TID #90 tabs 12/27/24 benzonatate 200 mg capsule 200 mg PO TID PRN cough #20 caps 01/03/25 loperamide 2 mg capsule 2 mg PO Q6H PRN loose stool 5 days 01/06/25 #20 caps dicyclomine 10 mg capsule 10 mg PO BID #60 caps 01/11/25 ondansetron 4 mg disintegrating 4 mg PO Q8H PRN nausea and 01/17/25 tablet vomiting #30 tabs furosemide 20 mg tablet See Rx Instructions .Route 01/24/25 .COMPLEX #30 tabs fluconazole 150 mg tablet 150 mg PO Q3D 2 doses #2 tabs 02/08/25 nystatin 100,000 unit/gram topical 1 applic topical TID Apply to 02/08/25 cream groin rash until clear. #60 grams diazepam 2 mg tablet 2 mg PO TID #90 tabs 02/09/25 omeprazole 20 mg capsule,delayed 20 mg PO DAILY #90 caps 02/09/25 release quetiapine 50 mg tablet (Seroquel) 50 mg PO HS #90 tabs 02/09/25 Allergies Allergy/AdvReac Type Severity Reaction Status Date / Time codeine (CODEINE) Allergy Unknown WEAK Verified 02/08/25 13:53 hydrochlorothiazide Allergy Unknown I-RASH Verified 02/08/25 13:53 (HYDROCHLOROTHIAZIDE) hydrocodone (HYDROCODONE) Allergy Unknown I-RASH Verified 02/08/25 13:53 metoclopramide Allergy Unknown SLURRED Verified 02/08/25 13:53 (METOCLOPRAMIDE) SPEECH, WEAK nifedipine (NIFEDIPINE) Allergy Unknown I-HIVES Verified 02/08/25 13:53 prazosin (PRAZOSIN) Allergy Unknown ITCHING/WEA Verified 02/08/25 13:53 K triamterene (TRIAMTERENE) Allergy Unknown I-RASH Verified 02/08/25 13:53 PFSH <Felicita Klein MD - Last Filed: 02/18/25 07:02> [facility] Disclaimer: The information contained in this section may have been updated after the patient was seen, as this information can be updated by other users. 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 Family History Other Family history of cancer Family history of diabetes mellitus type II Family history of hypertension Family history of myocardial infarction Social History Smoking Status: Never smoker second hand exposure: Yes alcohol intake: never substance use type: denies use current occupational status: retired and disabled Travel in the last 8 weeks?: None household members: none housing: apartment lives independently: Yes marital status: single education level: middle school service: No senior living: No current occupational exposures/hazards: No caffeine: No do you feel safe at home: Yes victim of physical abuse: No victim of emotional abuse: No victim of sexual abuse: No would you like helpful sources: No Have you lived/traveled outside [place] in past 30 days?: No Contact w/someone who lives/traveled outside [place] past 30 days?: No Exposure to someone with infectious disease in past 14 days?: No Do you have a fever (greater than 100.4 F or 38 C)?: No Have you tested positive for COVID-19?: No Exposed to someone with COVID-19 in past 14 days?: No Do you have a sore throat?: No Do you have a cough?: No Do you have any weakness?: No Do you have any diarrhea?: No Are you experiencing any unusual bleeding?: No Do you have any muscle aches/pain?: No Do you have any abdominal pain?: No Are you experiencing loss of taste or smell?: No Other Medical History Have you received the Flu Vaccine for this season: No Have you received the Pneumonia Vaccine: Yes <Felicita Klein MD - Last Filed: 02/18/25 07:02> ROS Obtained: Yes Systems reviewed as appropriate & no additional complaints except as documented per HPI Physical Exam <Felicita Klein MD - Last Filed: 02/18/25 07:02> General General appearance: alert and in no apparent distress Comment: agitated and tearful on arrival, not combative Head Head exam: atraumatic and normocephalic Eye Eye exam: Present PERRL and EOMI ENT ENT exam: Present mucous membranes moist Neck Neck exam: Present normal inspection and full ROM Chest Chest inspection: Present symmetric chest wall rise; Absent tenderness Respiratory Respiratory exam: Present normal lung sounds bilaterally; Absent respiratory distress, wheezes or stridor Cardiovascular Cardiovascular exam: Present regular rate and normal rhythm Abdominal Exam Abdominal exam: Present soft and tenderness (Mild epigastric); Absent distention, guarding or rebound Extremities Exam Extremities exam: Present full ROM; Absent edema Neurological Exam Neurological exam: Present alert and oriented X3; Absent motor sensory deficit Psychiatric Psychiatric exam: Present agitated (Tearful, upset that she does not feel better) Skin Skin exam: Present warm and dry Medical Decision Making <Felicita Klein MD - Last Filed: 02/18/25 07:02> Medical Records Medical records reviewed: Yes I reviewed the patient's medical records. Screening: Per USPSTF and CDC recommendations, given the prevalence of disease in our region, it is our hospital?s policy to screen for HIV and viral Hepatitis for all patients aged 18 and over and those with ongoing risk factors. MR Comment: Labs from earlier encounter reviewed and very reassuring without acute abnormality, troponin was negative. No imaging was performed. Chet Inquiry Pt receiving controlled substance: No Vital Signs: 02/18/25 06:30 02/18/25 06:50 02/18/25 07:00 Temperature 98.1 F Temperature Source Oral Pulse Rate 71 68 Pulse Rate [Radial] 75 Respiratory Rate 16 17 Blood Pressure 168/77 H 175/73 H Blood Pressure [Right Arm] 196/95 H Blood Pressure Mean 107 Blood Pressure Mean [Right Arm] 128 Blood Pressure Source Blood Pressure Position Blood Pressure Position [Right Arm] Sitting 02 Sat by Pulse Oximetry 98 97 99 Oxygen Delivery Method Room Air Room Air 02/18/25 07:31 02/18/25 08:00 02/18/25 08:31 Temperature Temperature Source Pulse Rate 67 80 69 Pulse Rate [Radial] Respiratory Rate 17 17 Blood Pressure 157/65 H 152/84 H 143/69 H Blood Pressure [Right Arm] Blood Pressure Mean 108 109 Blood Pressure Mean [Right Arm] Blood Pressure Source Blood Pressure Position Blood Pressure Position [Right Arm] 02 Sat by Pulse Oximetry 100 97 99 Oxygen Delivery Method Room Air Room Air Room Air 02/18/25 08:38 Temperature 98.0 F Temperature Source Oral Pulse Rate 74 Pulse Rate [Radial] Respiratory Rate 18 Blood Pressure 143/69 H Blood Pressure [Right Arm] Blood Pressure Mean Blood Pressure Mean [Right Arm] Blood Pressure Source Automatic Cuff Blood Pressure Position Sitting Blood Pressure Position [Right Arm] 02 Sat by Pulse Oximetry Oxygen Delivery Method Room Air Lab Data Lab Results 02/18/25 06:33: WBC 6.5, RBC 3.72 L, Hgb 12.1 L D, Hct 34.8 L, MCV 93.5, MCH 32.5 H, MCHC 34.8, RDW 13.6, Plt Count 207, MPV 11.0 H, Neut % (Auto) 73.2, Lymph % (Auto) 15.3, Arenac % (Auto) 9.0, Eos % (Auto) 0.9, Baso % (Auto) 0.8, Neut # (Auto) 4.8, Lymph # (Auto) 1.0, Arenac # (Auto) 0.6, Eos # (Auto) 0.1, Baso # (Auto) 0.1, Sodium 135 L, Potassium 4.2, Chloride 99, Carbon Dioxide 27, Anion Gap 13.2, BUN 19 H, Creatinine 0.80, Estimated Creat Clear 51, Estimated GFR 70, Est GFR ( Amer) 84, Glucose 164 H, Calcium 10.2, Total Bilirubin 0.6, AST 27, ALT 22, Alkaline Phosphatase 95, Troponin I < 0.01, Total Protein 7.4, Albumin 4.9, Globulin 2.5, Albumin/Globulin Ratio 2.0 H 02/18/25 06:33 02/18/25 06:33 Orders (Tests/Meds): ED MEDICATIONS Discontinued Medications Generic Name Dose Route Start Last Admin Trade Name Juan F PRN Reason Stop Dose Admin Diazepam 2 mg 02/18/25 08:08 02/18/25 08:12 Diazepam 10mg/2ml Syringe IV 02/18/25 08:09 2 mg ONCE ONE Administration Iopamidol 75 ml 02/18/25 07:19 02/18/25 07:20 Iopamidol-370 (76%);100ml Bottle IV 02/18/25 07:20 75 ml ONCE ONE Administration Isosorbide Dinitrate 10 mg 02/18/25 06:50 02/18/25 07:27 Isosorbide Dinitrate 10 Mg Tablet PO 02/18/25 06:51 Not Given ONCE ONE Ondansetron HCl 4 mg 02/18/25 06:46 02/18/25 06:53 Ondansetron 4mg/2ml Vial IV 02/18/25 06:47 4 mg ONCE ONE Administration Pantoprazole Sodium 40 mg 02/18/25 06:46 02/18/25 06:53 Pantoprazole 40mg Vial IV 02/18/25 06:47 40 mg ONCE ONE Administration Sodium Chloride 10 ml 02/18/25 06:46 Sodium Chloride 0.9% 10ml Vial IV 03/20/25 06:45 NEEDED PRN dilute protonix Sodium Chloride 10 ml 02/18/25 07:19 02/18/25 07:20 Sodium Chloride 0.9% 10ml Syr (Rad Only) IV 02/18/25 07:20 10 ml ONCE ONE Administration ORDERS Category Date Time Status CT abdomen pelvis w con Stat Cat Scan 02/18/25 06:46 Completed CXR --portable [XR chest portable] Stat Exams 02/18/25 06:46 Completed POCUS Point of Care (ER Only) Stat Exams 02/18/25 08:18 Completed CBC w/Auto Diff [Complete Blood Count Auto Diff] Stat Lab 02/18/25 06:33 Completed CMP [Comprehensive Metabolic Panel] Stat Lab 02/18/25 06:33 Completed Trop I [Troponin I] Stat Lab 02/18/25 06:33 Completed ECG Request Stat Y 02/18/25 06:46 Ordered Medical Decision Narrative: In summary, 74-year-old female well-known to this ER with a history of hiatal hernia, corkscrew esophagus, chronic abdominal pain, food regurgitation, nausea, vomiting which are problems not at goal therapy presents to the ER with complaints of epigastric abdominal pain, nausea but no vomiting. On arrival patient is agitated and tearful stating she has not slept overnight because of the pain, she frequently presents like this and is stating you are supposed to help me! . She is difficult to redirect and becomes unreasonable but not combative. Her physical exam she is hemodynamically stable, afebrile, mucous membranes are moist, very slight epigastric abdominal tenderness with no rebound or guarding, no peritonitic findings. Remainder of exam benign. Differential diagnosis includes but is not limited to ACS so cardiac workup will be ordered, she has not had recent imaging in our ER and was not evaluated with imaging at her visit last night so I am going to perform CT abdomen pelvis to rule out bowel obstruction, pancreatic cyst, mass, enteritis, among other intra-abdominal pathology. I had also considered the possibility of pancreatitis, electrolyte abnormality, esophageal spasm which I believe is most likely in the setting of her known achalasia, corkscrew esophagus, etc. I ordered Zofran, Protonix, and a dose of her isosorbide dinitrate which she is due to take this morning. This should help her symptoms. I attempted to patient financial counselor the patient on the importance of taking her home medications which are prescribed to help her ongoing problems (and she had not taken them prior to arrival), and so she opened her purse and went to take her isosorbide. I immediately stopped her from doing this trying to clarify with her that I was ordering these medications to be given to her in the ER and that she was not to take any of her home medications while in the ER. She is difficult to redirect away from this so RN placed her purse on the chair in the room because she kept attempting to take her home meds and we did not want her duplicate-dosing herself by accident. Patient became more tearful with this. I consoled the patient reassuring her that she was safe in the ER but that it was very important for her to follow directions from her specialists about her ongoing problems. I reassured her that she is getting a workup including labs and imaging in the ER to reassess since she did not have imaging last night and presented less than 24 hours later back to the ER with the same complaints. She did start to calm down. Labs and imaging pending at this time, patient handed off to Dr. Mitchell in stable condition. <Romaine Mitchell MD - Last Filed: 02/18/25 12:40> Vital Signs: 02/18/25 06:30 02/18/25 06:50 02/18/25 07:00 Temperature 98.1 F Temperature Source Oral Pulse Rate 71 68 Pulse Rate [Radial] 75 Respiratory Rate 16 17 Blood Pressure 168/77 H 175/73 H Blood Pressure [Right Arm] 196/95 H Blood Pressure Mean 107 Blood Pressure Mean [Right Arm] 128 Blood Pressure Source Blood Pressure Position Blood Pressure Position [Right Arm] Sitting 02 Sat by Pulse Oximetry 98 97 99 Oxygen Delivery Method Room Air Room Air 02/18/25 07:31 02/18/25 08:00 02/18/25 08:31 Temperature Temperature Source Pulse Rate 67 80 69 Pulse Rate [Radial] Respiratory Rate 17 17 Blood Pressure 157/65 H 152/84 H 143/69 H Blood Pressure [Right Arm] Blood Pressure Mean 108 109 Blood Pressure Mean [Right Arm] Blood Pressure Source Blood Pressure Position Blood Pressure Position [Right Arm] 02 Sat by Pulse Oximetry 100 97 99 Oxygen Delivery Method Room Air Room Air Room Air 02/18/25 08:38 Temperature 98.0 F Temperature Source Oral Pulse Rate 74 Pulse Rate [Radial] Respiratory Rate 18 Blood Pressure 143/69 H Blood Pressure [Right Arm] Blood Pressure Mean Blood Pressure Mean [Right Arm] Blood Pressure Source Automatic Cuff Blood Pressure Position Sitting Blood Pressure Position [Right Arm] 02 Sat by Pulse Oximetry Oxygen Delivery Method Room Air Lab Data Lab Results 02/18/25 06:33: WBC 6.5, RBC 3.72 L, Hgb 12.1 L D, Hct 34.8 L, MCV 93.5, MCH 32.5 H, MCHC 34.8, RDW 13.6, Plt Count 207, MPV 11.0 H, Neut % (Auto) 73.2, Lymph % (Auto) 15.3, Arenac % (Auto) 9.0, Eos % (Auto) 0.9, Baso % (Auto) 0.8, Neut # (Auto) 4.8, Lymph # (Auto) 1.0, Arenac # (Auto) 0.6, Eos # (Auto) 0.1, Baso # (Auto) 0.1, Sodium 135 L, Potassium 4.2, Chloride 99, Carbon Dioxide 27, Anion Gap 13.2, BUN 19 H, Creatinine 0.80, Estimated Creat Clear 51, Estimated GFR 70, Est GFR ( Amer) 84, Glucose 164 H, Calcium 10.2, Total Bilirubin 0.6, AST 27, ALT 22, Alkaline Phosphatase 95, Troponin I < 0.01, Total Protein 7.4, Albumin 4.9, Globulin 2.5, Albumin/Globulin Ratio 2.0 H Orders (Tests/Meds): ED MEDICATIONS Discontinued Medications Generic Name Dose Route Start Last Admin Trade Name Freq PRN Reason Stop Dose Admin Diazepam 2 mg 02/18/25 08:08 02/18/25 08:12 Diazepam 10mg/2ml Syringe IV 02/18/25 08:09 2 mg ONCE ONE Administration Iopamidol 75 ml 02/18/25 07:19 02/18/25 07:20 Iopamidol-370 (76%);100ml Bottle IV 02/18/25 07:20 75 ml ONCE ONE Administration Isosorbide Dinitrate 10 mg 02/18/25 06:50 02/18/25 07:27 Isosorbide Dinitrate 10 Mg Tablet PO 02/18/25 06:51 Not Given ONCE ONE Ondansetron HCl 4 mg 02/18/25 06:46 02/18/25 06:53 Ondansetron 4mg/2ml Vial IV 02/18/25 06:47 4 mg ONCE ONE Administration Pantoprazole Sodium 40 mg 02/18/25 06:46 02/18/25 06:53 Pantoprazole 40mg Vial IV 02/18/25 06:47 40 mg ONCE ONE Administration Sodium Chloride 10 ml 02/18/25 06:46 Sodium Chloride 0.9% 10ml Vial IV 03/20/25 06:45 NEEDED PRN dilute protonix Sodium Chloride 10 ml 02/18/25 07:19 02/18/25 07:20 Sodium Chloride 0.9% 10ml Syr (Rad Only) IV 02/18/25 07:20 10 ml ONCE ONE Administration ORDERS Category Date Time Status CT abdomen pelvis w con Stat Cat Scan 02/18/25 06:46 Completed CXR --portable [XR chest portable] Stat Exams 02/18/25 06:46 Completed POCUS Point of Care (ER Only) Stat Exams 02/18/25 08:18 Completed CBC w/Auto Diff [Complete Blood Count Auto Diff] Stat Lab 02/18/25 06:33 Completed CMP [Comprehensive Metabolic Panel] Stat Lab 02/18/25 06:33 Completed Trop I [Troponin I] Stat Lab 02/18/25 06:33 Completed ECG Request Stat Y 02/18/25 06:46 Ordered ECG Data Tracing #1: I reviewed this ECG and interpreted as documented below: Ventricularly paced rhythm. Does not meet STEMI criteria based on Sgarbossa criteria. QTc 474 Medical Decision Narrative: In summary, 74-year-old female well-known to this ER with a history of hiatal hernia, corkscrew esophagus, chronic abdominal pain, food regurgitation, nausea, vomiting which are problems not at goal therapy presents to the ER with complaints of epigastric abdominal pain, nausea but no vomiting. On arrival patient is agitated and tearful stating she has not slept overnight because of the pain, she frequently presents like this and is stating you are supposed to help me! . She is difficult to redirect and becomes unreasonable but not combative. Her physical exam she is hemodynamically stable, afebrile, mucous membranes are moist, very slight epigastric abdominal tenderness with no rebound or guarding, no peritonitic findings. Remainder of exam benign. Differential diagnosis includes but is not limited to ACS so cardiac workup will be ordered, she has not had recent imaging in our ER and was not evaluated with imaging at her visit last night so I am going to perform CT abdomen pelvis to rule out bowel obstruction, pancreatic cyst, mass, enteritis, among other intra-abdominal pathology. I had also considered the possibility of pancreatitis, electrolyte abnormality, esophageal spasm which I believe is most likely in the setting of her known achalasia, corkscrew esophagus, etc. I ordered Zofran, Protonix, and a dose of her isosorbide dinitrate which she is due to take this morning. This should help her symptoms. I attempted to patient financial counselor the patient on the importance of taking her home medications which are prescribed to help her ongoing problems (and she had not taken them prior to arrival), and so she opened her purse and went to take her isosorbide. I immediately stopped her from doing this trying to clarify with her that I was ordering these medications to be given to her in the ER and that she was not to take any of her home medications while in the ER. She is difficult to redirect away from this so RN placed her purse on the chair in the room because she kept attempting to take her home meds and we did not want her duplicate-dosing herself by accident. Patient became more tearful with this. I consoled the patient reassuring her that she was safe in the ER but that it was very important for her to follow directions from her specialists about her ongoing problems. I reassured her that she is getting a workup including labs and imaging in the ER to reassess since she did not have imaging last night and presented less than 24 hours later back to the ER with the same complaints. She did start to calm down. Labs and imaging pending at this time, patient handed off to Dr. Mitchell in stable condition. Romaine Mitchell MD At the time my assumption of care, plan was to follow-up patient's CT imaging and lab work. Patient being administered Zofran, Protonix and isosorbide dinitrate. Ultimately, patient's workup showed no leukocytosis, hemoglobin improving to 12.1 and hematocrit of 34.8 (up from around 10.5), platelets normal at 207. Chronically mildly low sodium of 135, unchanged from baseline. Electrolytes otherwise within normal limits. BUN at baseline at 19, no MAX glucose normal at 164. Calcium normal at 10.2. Liver enzymes and bilirubin within normal limits. Initial troponin less than 0.01. Chest x-ray interpreted by me personally. No focal consolidation, no pneumothorax, no widening of the mediastinum. Left-sided pacemaker in place. Unremarkable chest x-ray. See radiology report for details. CT imaging was interpreted by me personally. Patient has a hiatal hernia but no other acute findings within the abdomen or pelvis. Patient's hiatal hernia, which has been documented on previous imaging. Patient does have a 3.2 cm complex mass in the right lobe of the liver . There is also possible gallstones or sludge in the gallbladder. No other acute findings within the abdomen or pelvis. On reassessment, patient continues to have some nausea and abdominal pain on palpation mostly in the epigastric and right upper quadrant. Patient was given her home dose of 2 mg diazepam. A bedside biliary ultrasound was performed by me personally as ultrasound services are not currently available given it is the weekend. Patient's gallbladder does not appear to be distended. Normal gallbladder wall thickness. No pericholecystic fluid. Very mild amount of sludge within the gallbladder but no gallstones. Common bile duct is not dilated. Overall, unremarkable right upper quadrant ultrasound. Patient has had lesions in the liver reported on previous imaging that could represent cysts versus hemangiomas. Patient's symptomatology appears chronic in nature and she has not had any additional vomiting while she has been here in the emergency department. I will refer the patient to Dr. Jansen with general surgery team due to her biliary sludge. she is followed closely with GI with plan to receive Botox injections in the future. I encouraged her to attend these appointments but feel that she is appropriate for discharge at this time given no acute findings on today's workup. Return precautions were given. All questions were answered. She was then discharged from the emergency department in stable condition. Procedures <Romaine Mitchell MD - Last Filed: 02/18/25 12:40> Limited Ultrasound Interpretation:: Limited RUQ ultrasound Indication: Abdominal pain, nausea and vomiting Identified structures: -Gallbladder -Gallbladder wall -Common bile duct -Liver Findings: Sonographic Donis sign: Absent Gallstones: Absent Sludge: Present but very minimal biliary sludge Pericholecystic fluid: Absent Maximal GB wall thickness (mm): 1.8 mm Normal Common bile duct width (mm): 4.2 mm Normal Gallbladder width (cm): 2.63 cm Normal Gallbladder length (cm): [n 4.92 cm Normal Impression: Biliary sludge without evidence of cholecystitis or cholelithiasis or choledocholithiasis Images were saved to permanent archive The study was technically adequate CPT 65386-28 This study was performed by me, and I personally interpreted all images/videos. Based on my clinical judgement, these images were adequate and did not necessitate further imaging. Critical Care <Felicita Klein MD - Last Filed: 02/18/25 07:02> Critical Care Time Critical Care Time: No
[2025-02-18] MEDS: ONDANSETRON 4MG/2ML VIAL 4 MG IV (06:53)
[2025-02-18] MEDS: PANTOPRAZOLE 40MG VIAL 40 MG IV (06:53)
--- OUTSIDE RECORDS SUMMARY | 2025-02-18 06:58 | XMS_ITS | Clinical Summary ---
Author Organization [facility] Address [address] [place] [address] Care Team Providers Care Lead Business Systems Analyst Name Role Phone Hansel Ruff MD Primary Care Provider [phone] Allergies Active Allergy Reactions Criticality Noted Date [...] or (1 - 1-dose 75+ series) 12/15/2023 [id number] Vaccine ( - season) 2024 UKY-Influenza Vaccine [...] ORDERABLES Final Re sult [facility] [address] [place] [address] * (ABNORMAL) Hemoglobin A1c (03/28/2018 3:57 PM [...] <6.0% Children and Adolescents <7.5% . Source: [place] [employer]. Standards of medical care in diabetes, 2017. Diabetes Care.2017:40 (suppl 1):S1-S135. . HbA1c assay performed by an ion-exchange chromatography method that is certified traceable to the DCCT. 03/28/2018 3:57 PM EDT 03/28/2018 4:27 PM EDT us [facility] BLOOD ORDERABLES Final Result SUNQUEST from Last 3 Months or Most Recently Relevant to Health Maintenance Insurance [facility] MEDICARE [facility] MEDICAID Care Teams Lead Business Systems Analyst Relationship Specialty Start Date End Date Hansel Ruff MD [address] [place] [address] [address] [place] [address] PCP - General 02/26/24
[2025-02-18 07:01] LABS: Immature Granulocytes % 0.8 %; Nucleated Red Blood Cells % 0.5 %
[2025-02-18 07:02] LABS: Albumin Level 4.9 g/dl (3.5-5.0); Chloride 99 mmol/L (98-107)
[2025-02-18 07:03] LABS: Potassium 4.2 mmoL/L (3.5-5.1); Sodium 135 mmol/L (136-145)
[2025-02-18 07:05] LABS: Alanine Aminotransferase 22 U/L (12-78); Albumin/Globulin Ratio 2.0 (1.1-1.8); Alkaline Phosphatase 95 U/L (38-126); Anion Gap 13.2 mEq/L (5-15); Aspartate Amino Transferase 27 U/L (14-36); Bilirubin,Total 0.6 mg/dl (0.2-1.3); Blood Urea Nitrogen 19 mg/dl (7-17); Carbon Dioxide 27 mmol/L (22.0-30.0); Creatinine Clearance Estimated 51 mL/min (50-200); Creatinine,Serum 0.80 mg/dl (0.52-1.04); Estimated Glomerular Filt Rate 70 ml/min (>60); GFR (African American) 84 ML/MIN (>60); Globulin 2.5 g/dL (1.3-3.2); Total Protein,Serum 7.4 g/dl (6.3-8.2)
[2025-02-18 07:06] LABS: Calcium 10.2 mg/dl (8.4-10.2); Glucose 164 mg/dl (74-100)
[2025-02-18 07:07] LABS: Hematocrit 34.8 % (37.0-47.0); Mean Corpuscular HGB Conc 34.8 g/dL (31.8-35.4); Mean Corpuscular Hemoglobin 32.5 pg (27.0-31.2); Mean Corpuscular Volume 93.5 fl (81-99); Platelet Count 207 K/mm3 (142-424); Red Blood Count 3.72 M/mm3 (4.20-5.40); Red Cell Distribution Width-SD 46.3 fL; White Blood Count 6.5 K/mm3 (4.8-10.8)
[2025-02-18 07:08] LABS: Hemoglobin 12.1 g/dL (12.2-16.2)
[2025-02-18] MEDS: IOPAMIDOL-370 (76%);100ML BOTTLE 75 ML IV (07:20)
[2025-02-18] MEDS: SODIUM CHLORIDE 0.9% 10ML SYR (RAD ONLY) 10 ML IV (07:20)
[2025-02-18 07:22] LABS: Troponin I < 0.01 ng/ml (0.00-0.034)
--- NOTE | 2025-02-18 07:28 | PC.NURSE ---
Patient taking Isosorbide 10mg from personal supply now, Dr. Mitchell aware.
[2025-02-18] MEDS: diazePAM 10MG/2ML SYRINGE 2 MG IV (08:12)
== END 2025-02-18 08:58 | disposition home or self-care (01) ==
PROVIDERS: Emergency Medicine; Emergency Provider Student in an Organized Health Care Education/Training Program
DX: R10.13 Epigastric pain (principal); K83.8 Other specified diseases of biliary tract; K44.9 Diaphragmatic hernia without obstruction or gangrene; R11.2 Nausea with vomiting, unspecified; R16.0 Hepatomegaly, not elsewhere classified; K21.9 Gastro-esophageal reflux disease without esophagitis
CPT/HCPCS: 71045; 74177; 80053; 84484; 85025; 93005; 96374; 96375; 99285; J2405; J2470; J3360; Q9967

== ENCOUNTER 2025-02-18 20:32 | Emergency (ER) | payer MEDICARE, OTHER, SELFPAY ==
[2025-02-18] VITALS (11 sets, daily range): BP systolic 86–143; BP diastolic 44–87; PULSE 60–87; RESP 10–21; TEMP 36.1–36.6; O2SAT 94–100; BMI 24.0
--- OUTSIDE RECORDS SUMMARY | 2025-02-18 20:50 | XMS_ITS | Clinical Summary ---
Author Organization [facility] Address [address] [place] [address] Care Team Providers Care Section Gang Name Role Phone Hansel Ruff MD Primary Care Provider [phone] Allergies Active Allergy Reactions Criticality Noted Date [...] or (1 - 1-dose 75+ series) 12/15/2023 [id number] Vaccine ( - season) 2024 UKY-Influenza Vaccine [...] ORDERABLES Final Re sult [facility] [address] [place] [address] * (ABNORMAL) Hemoglobin A1c (03/28/2018 3:57 PM [...] <6.0% Children and Adolescents <7.5% . Source: [place] [employer]. Standards of medical care in diabetes, 2017. Diabetes Care.2017:40 (suppl 1):S1-S135. . HbA1c assay performed by an ion-exchange chromatography method that is certified traceable to the DCCT. 03/28/2018 3:57 PM EDT 03/28/2018 4:27 PM EDT us [facility] BLOOD ORDERABLES Final Result SUNQUEST from Last 3 Months or Most Recently Relevant to Health Maintenance Insurance [facility] MEDICARE [facility] MEDICAID Care Teams Section Gang Relationship Specialty Start Date End Date Hansel Ruff MD [address] [place] [address] [address] [place] [address] PCP - General 02/26/24
--- NOTE | 2025-02-18 20:56 | ED_ITS ---
<Statement entered by Anahi Arceo DO - 02/21/25 22:26> I was consulted by the [place], and we discussed the complexity of problems being addressed. I approve the treatment and management plan for this patient's care in the emergency department, thus performing a substantial portion of the medical decision making. Anahi Arceo DO Discharge Plan Disposition Patient Disposition: Home, Self-Care Condition: Good Prescriptions Prescriptions: No Action nitroglycerin 0.3 mg tablet, sublingual 0.3 mg sublingual Q5M PRN (Reason: chest pain) Qty: 20 3RF Rx Instructions: do not exceed 3 doses per episode isosorbide dinitrate 10 mg tablet 10 mg PO TID Qty: 90 12RF Rx Instructions: allow nitrate-free interval of 12-14 hrs per 24-hr period (DME) blood pressure monitor Kit See Rx Instructions .Route Qty: 1 0RF Rx Instructions: As directed polyethylene glycol 3350 [Miralax] 17 gram/dose powder 17 g PO DAILY metoprolol succinate 50 mg tablet extended release 24 hr 50 mg PO BID Qty: 180 1RF fluconazole 150 mg tablet 150 mg PO Q3D Qty: 2 0RF nystatin 100,000 unit/gram cream 1 applic topical TID Qty: 60 1RF Rx Instructions: Apply to groin rash until clear famotidine 20 mg tablet See Rx Instructions .ROUTE .COMPLEX Qty: 90 3RF Dose Instruction: TAKE ONE TABLET BY MOUTH ONCE A DAY FOR GERD Rx Instructions: TAKE ONE TABLET BY MOUTH ONCE A DAY FOR GERD clopidogrel 75 mg tablet See Rx Instructions .ROUTE .COMPLEX Qty: 90 1RF Dose Instruction: TAKE ONE TABLET BY MOUTH DAY Rx Instructions: TAKE ONE TABLET BY MOUTH DAY metformin 500 mg tablet 500 mg PO BID Qty: 180 1RF atorvastatin 40 mg tablet 40 mg PO DAILY Qty: 90 1RF venlafaxine 37.5 mg tablet 37.5 mg PO BID Qty: 180 1RF fluticasone propionate 50 mcg/actuation spray,suspension 2 spray intranasal DAILY Qty: 16 5RF gabapentin 100 mg capsule See Rx Instructions .ROUTE .COMPLEX Qty: 60 0RF Dose Instruction: TAKE 2 CAPSULES (200 MG) BY MOUTH AT BEDTIME Rx Instructions: TAKE 2 CAPSULES (200 MG) BY MOUTH AT BEDTIME dicyclomine 10 mg capsule 10 mg PO BID Qty: 60 12RF Rx Instructions: Please take 1 capsule p.o. twice daily ondansetron 4 mg tablet,disintegrating 4 mg PO Q8H PRN (Reason: nausea and vomiting) Qty: 30 0RF furosemide 20 mg tablet See Rx Instructions .ROUTE .COMPLEX Qty: 30 1RF Dose Instruction: TAKE 1 TABLET BY MOUTH EVERY MORNING FOR 7 DAYS NEEDED Rx Instructions: TAKE 1 TABLET BY MOUTH EVERY MORNING FOR 7 DAYS NEEDED omeprazole 20 mg capsule,delayed release(DR/EC) 20 mg PO DAILY Qty: 90 1RF quetiapine [Seroquel] 50 mg tablet 50 mg PO HS Qty: 90 1RF diazepam 2 mg tablet 2 mg PO TID Qty: 90 2RF Probiotic 15 billion cell capsule, sprinkle 1 cap PO DAILY 30 Days Qty: 30 0RF Rx Instructions: do not crush/chew/cut; swallow whole OR may open and sprinkle in cold drink/food acetaminophen [Tylenol] 325 mg tablet 325 mg PO QID PRN (Reason: pain) Qty: 30 0RF aspirin 81 mg tablet,chewable 81 mg PO DAILY benzonatate 200 mg capsule 200 mg PO TID PRN (Reason: cough) Qty: 20 0RF loperamide 2 mg capsule 2 mg PO Q6H PRN (Reason: loose stool) 5 Days Qty: 20 0RF Rx Instructions: Please take 4 mg initially, followed by 2 mg after each loose stool, maximum 16 mg/day Referrals Follow up/Referrals: Juan Jansen MD [Staff Physician, General Surgery] - See instructions Hansel Ruff MD [Primary Care Provider, Medical] - See instructions Gibson Campbell II, MD [Staff Physician, Gastroenterology] - See instructions Activity Restrictions/Add. Instructions Additional Instructions/Restrictions: You were seen for painful swallowing. Please follow up with your GI doctor. For the gallbladder sludge seen earlier please see the surgeon. Clinical Impressions Clinical Impression: Pain on swallowing Instructions Patient Instructions: DI for Acute Abdominal Pain Print Language Print Language: Slovenian Discharge ED Provider: Anahi Arceo Adult HPI General Chief complaint: Abdominal Pain Stated complaint: Abd Pain Time Seen by Provider: 02/18/25 20:37 Mode of Arrival: EMS Source of Information: Patient Description of Symptoms (Recalled from ER Triage Doc. by RN): Pt presents by EMS from home for evaluation of abdominal pain that she thinks is due to her isosorbide. Per ems a neighbor heard the patient calling for help. History of Present Illness HPI narrative: Patient presents complaining of painful swallowing. Pain noted with eating a cracker. 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 She is followed by GI. She was discharged earlier today after a CT abdomen and pelvis showed gallbladder sludge. She was given a referral to see general surgery as well as follow-up with her GI doctor. MD complaint: painful swallowing Onset (ago): minute(s) Severity: mild Quality: sharp Consistency: intermittent Relieving factors: none Exacerbating factors: eating Associated symptoms: denies other symptoms Treatments prior to arrival: none Related Data Home Medications ?Medication ?Instructions ?Recorded ?Confirmed aspirin 81 mg chewable tablet 81 mg PO DAILY 07/21/23 02/08/25 polyethylene glycol 3350 17 17 g PO DAILY 11/16/24 gram/dose oral powder (Miralax) Previous Rx's ?Medication ?Instructions ?Recorded clopidogrel 75 mg tablet See Rx Instructions .Route 1 08/13/23 .COMPLEX #90 tabs famotidine 20 mg tablet See Rx Instructions .Route 1 08/13/23 .COMPLEX #90 tabs lactobacillus combo no.11 15 1 cap PO DAILY 30 days #3 0 caps 06/16/24 billion cell sprinkle capsule (Probiotic) acetaminophen 325 mg tablet 325 mg PO QID PRN pain #30 tabs 07/15/24 (Tylenol) atorvastatin 40 mg tablet 40 mg PO DAILY #90 tabs 07/14 08/05 metformin 500 mg tablet 500 mg PO BID #180 tabs 07/14 08/05 blood pressure monitor #1 ea 10/10/24 venlafaxine 37.5 mg tablet 37.5 mg PO BID mood #180 ta bs 11/10/24 nitroglycerin 0.3 mg sublingual 0.3 mg sublingual Q5M PRN chest 11/15/24 tablet pain #20 tabs fluticasone propionate 50 2 spray intranasal DAILY #16 grams 12/11/24 mcg/actuation nasal spray,suspension metoprolol succinate 50 mg 50 mg PO BID #180 tabs 12/10 tablet,extended release 24 hr gabapentin 100 mg capsule See Rx Instructions .Route 0 12/22/24 .COMPLEX #60 caps isosorbide dinitrate 10 mg tablet 10 mg PO TID #90 tab s 12/27/24 benzonatate 200 mg capsule 200 mg PO TID PRN cough #20 caps 01/03/25 loperamide 2 mg capsule 2 mg PO Q6H PRN loose stool 5 days 01/06/25 #20 caps dicyclomine 10 mg capsule 10 mg PO BID #60 caps ondansetron 4 mg disintegrating 4 mg PO Q8H PRN nausea and 01/17/25 tablet vomiting #30 tabs furosemide 20 mg tablet See Rx Instructions .Route 0 01/24/25 .COMPLEX #30 tabs fluconazole 150 mg tablet 150 mg PO Q3D 2 doses #2 tab s 02/08/25 nystatin 100,000 unit/gram topical 1 applic topical TI D Apply to 02/08/25 cream groin rash until clear. #60 grams diazepam 2 mg tablet 2 mg PO TID #90 tabs 5 omeprazole 20 mg capsule,delayed 20 mg PO DAILY #90 ca ps 02/09/25 release quetiapine 50 mg tablet (Seroquel) 50 mg PO HS #90 tab s 02/09/25 Allergies Allergy/AdvReac Type Severity Reaction Status Date / Time codeine (CODEINE) Allergy Unknown WEAK Verified 02/08/25 13:53 hydrochlorothiazide Allergy Unknown I-RASH Verified 02/08/25 13:53 (HYDROCHLOROTHIAZIDE) hydrocodone (HYDROCODONE) Allergy Unknown I-RASH Verified 02/08/25 13:53 metoclopramide Allergy Unknown SLURRED Verified 02/08/25 13:53 (METOCLOPRAMIDE) SPEECH, WEAK nifedipine (NIFEDIPINE) Allergy Unknown I-HIVES Verified 02/08/25 13:53 prazosin (PRAZOSIN) Allergy Unknown ITCHING/WEA Verified 02/08/25 13:53 K triamterene (TRIAMTERENE) Allergy Unknown I-RASH Verified 02/08/25 13:53 PFSH [facility] Disclaimer: The information contained in this section may have been updated after the patient was seen, as this information can be updated by other users. 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 Family History Other Family history of cancer Family history of diabetes mellitus type II Family history of hypertension Family history of myocardial infarction Social History Smoking Status: Never smoker second hand exposure: Yes alcohol intake: never substance use type: denies use current occupational status: retired and disabled Travel in the last 8 weeks?: None household members: none housing: apartment lives independently: Yes marital status: single education level: middle school service: No assisted: No current occupational exposures/hazards: No caffeine: No do you feel safe at home: Yes victim of physical abuse: No victim of emotional abuse: No victim of sexual abuse: No would you like helpful sources: No Have you lived/traveled outside [place] in past 30 days?: No Contact w/someone who lives/traveled outside US past 30 days?: No Exposure to someone with infectious disease in past 14 days?: No Do you have a fever (greater than 100.4 F or 38 C)?: No Have you tested positive for COVID-19?: No Exposed to someone with COVID-19 in past 14 days?: No Do you have a sore throat?: No Do you have a cough?: No Do you have any weakness?: No Do you have any diarrhea?: No Are you experiencing any unusual bleeding?: No Do you have any muscle aches/pain?: No Do you have any abdominal pain?: No Are you experiencing loss of taste or smell?: No Other Medical History Have you received the Flu Vaccine for this season: No Have you received the Pneumonia Vaccine: Yes ROS Obtained: Yes Systems reviewed as appropriate & no additional complaints except as documented Physical Exam General General appearance: alert and in no apparent distress Head Head exam: atraumatic and normocephalic Eye Eye exam: Present normal appearance and EOMI Chest Chest inspection: Present symmetric chest wall rise Respiratory Respiratory exam: Present normal lung sounds bilaterally; Absent wheezes or stridor Cardiovascular Cardiovascular exam: Present regular rate and normal rhythm; Absent systolic murmur Abdominal Exam Abdominal exam: Present soft; Absent distention, tenderness or guarding Extremities Exam Extremities exam: Present full ROM Neurological Exam Neurological exam: Present alert and oriented X3 Psychiatric Psychiatric exam: Present normal affect and normal mood Skin Skin exam: Present warm, dry and intact Medical Decision Making Medical Records Screening: Per USPSTF and CDC recommendations, given the prevalence of disease in our region, it is our hospital?s policy to screen for HIV and viral Hepatitis for all patients aged 18 and over and those with ongoing risk factors. Chet Inquiry Pt receiving controlled substance: No Vital Signs: 02/18/25 20:34 02/18/25 21:10 02/18/25 21:21 Temperature 97.0 F L Temperature Source Temporal Artery Scan Pulse Rate 64 62 Pulse Rate [Right] 74 Respiratory Rate 18 12 11 L Blood Pressure 114/57 L 143/64 H Blood Pressure [Right Arm] 119/79 Blood Pressure Mean [Right Arm] 92 Blood Pressure Source [Right Arm] Automatic Cuff Blood Pressure Position [Right Arm] Sitting 02 Sat by Pulse Oximetry 100 100 99 Oxygen Delivery Method Room Air Orders (Tests/Meds): ED MEDICATIONS Discontinued Medications Generic Name Dose Route Start Last Admin Trade Name Freq PRN Reason Stop Dose Admin Belladonna Alkaloids 60 ml 02/18/25 20:51 02/18/25 21:11 Belladonna Alkaloids 60 Ml Ml PO 02/18/25 20:52 60 ml ONCE ONE Administration Medical Decision Narrative: Patient presents with painful swallowing. She was discharged earlier this day with gallbladder sludge, no evidence of cholecystitis at the time. Her abdominal exam is soft, nontender. Given GI cocktail and discharged with follow-up with her surgeon and collection development librarian. Critical Care Critical Care Time Critical Care Time: No
[2025-02-18] MEDS: BELLADONNA ALKALOIDS 60 ML ML PO (21:11)
== END 2025-02-18 22:56 | disposition home or self-care (01) ==
PROVIDERS: Emergency Provider Student in an Organized Health Care Education/Training Program; PCP Internal Medicine
DX: R13.10 Dysphagia, unspecified (principal); K21.9 Gastro-esophageal reflux disease without esophagitis; E11.9 Type 2 diabetes mellitus without complications; I25.10 Atherosclerotic heart disease of native coronary artery without angina pectoris; E78.5 Hyperlipidemia, unspecified; I10 Essential (primary) hypertension
CPT/HCPCS: 99283

== ENCOUNTER 2025-02-27 07:51 | Outpatient (CLI) | payer MEDICARE, OTHER, SELFPAY ==
--- OUTSIDE RECORDS SUMMARY | 2025-02-27 07:53 | XMS_ITS | Clinical Summary ---
Author Organization [facility] Address [address] [place] [address] Care Team Providers Care Bagman/Woman Name Role Phone Hansel Ruff MD Primary [...] or (1 - 1-dose 75+ series) 12/15/2023 [id number] Vaccine ( - season) 2024 UKY-Influenza Vaccine [...] ORDERABLES Final Re sult [facility] [address] [place] [address] * (ABNORMAL) Hemoglobin A1c (03/28/2018 3:57 PM [...] <6.0% Children and Adolescents <7.5% . Source: [place] [employer]. Standards of medical care in diabetes, 2017. Diabetes Care.2017:40 (suppl 1):S1-S135. . HbA1c assay performed by an ion-exchange chromatography method that is certified traceable to the DCCT. 03/28/2018 3:57 PM EDT 03/28/2018 4:27 PM EDT us [facility] BLOOD ORDERABLES Final Result SUNQUEST from Last 3 Months or Most Recently Relevant to Health Maintenance Insurance [facility] MEDICARE [facility] MEDICAID Care Teams Bagman/Woman Relationship Specialty Start Date End Date Hansel Ruff MD [address] [place] [address] [address] [place] [address] PCP - General 02/26/24
--- NOTE | 2025-02-27 08:30 | US_ITS ---
FINAL REPORT CLINICAL HISTORY: Gallstone versus sludge on CT scan COMPARISON: CT of the abdomen and pelvis 02/18/2025 FINDINGS: Sonographic images of the right upper quadrant were obtained. The pancreas is partially obscured. There are 3 hypoechoic foci in the liver, with the dominant focus measuring 3.2 x 2.5 cm in size, heterogeneous in echogenicity, indeterminate. Trace sludge is present in the gallbladder without any evidence of shadowing stones. There is no evidence of biliary ductal dilatation.The common duct measures 4mm. Limited images of the right kidney are unremarkable. IMPRESSION: Trace sludge without evidence of stones is seen in the gallbladder. 3 hypoechoic foci in the liver, the dominant focus heterogeneous in echogenicity, 3.2 x 2.5 cm in size, indeterminate. If clinically indicated, MRI is suggested for further evaluation. Reviewed, Interpreted and Dictated by Ryan Lomeli MD Transcribed by Darling Hernandez Authenticated and [facility]
== END 2025-02-27 23:59 | disposition home or self-care (01) ==
PROVIDERS: PCP Internal Medicine; Visit Provider Surgery
DX: K83.8 Other specified diseases of biliary tract (principal); R93.2 Abnormal findings on diagnostic imaging of liver and biliary tract; R10.13 Epigastric pain; R11.2 Nausea with vomiting, unspecified
CPT/HCPCS: 76705

== ENCOUNTER 2025-03-01 20:56 | Emergency (ER) | payer MEDICARE, OTHER, SELFPAY ==
--- NOTE | 2025-03-01 21:01 | ED_ITS ---
<Statement entered by Anahi Arceo DO - 03/01/25 23:42> I was consulted by the [place], and we discussed the complexity of problems being addressed. I approve the treatment and management plan for this patient's care in the emergency department, thus performing a substantial portion of the medical decision making. Anahi Arceo DO Discharge Plan Disposition Patient Disposition: Home, Self-Care Condition: Good Prescriptions Prescriptions: New cefdinir 300 mg capsule 300 mg PO BID 7 Days Qty: 14 0RF No Action nitroglycerin 0.3 mg tablet, sublingual 0.3 mg sublingual Q5M PRN (Reason: chest pain) Qty: 20 3RF Rx Instructions: do not exceed 3 doses per episode isosorbide dinitrate 10 mg tablet 10 mg PO TID Qty: 90 12RF Rx Instructions: allow nitrate-free interval of 12-14 hrs per 24-hr period (DME) blood pressure monitor Kit See Rx Instructions .Route Qty: 1 0RF Rx Instructions: As directed polyethylene glycol 3350 [Miralax] 17 gram/dose powder 17 g PO DAILY metoprolol succinate 50 mg tablet extended release 24 hr 50 mg PO BID Qty: 180 1RF fluconazole 150 mg tablet 150 mg PO Q3D Qty: 2 0RF nystatin 100,000 unit/gram cream 1 applic topical TID Qty: 60 1RF Rx Instructions: Apply to groin rash until clear famotidine 20 mg tablet See Rx Instructions .ROUTE .COMPLEX Qty: 90 3RF Dose Instruction: TAKE ONE TABLET BY MOUTH ONCE A DAY FOR GERD Rx Instructions: TAKE ONE TABLET BY MOUTH ONCE A DAY FOR GERD clopidogrel 75 mg tablet See Rx Instructions .ROUTE .COMPLEX Qty: 90 1RF Dose Instruction: TAKE ONE TABLET BY MOUTH DAY Rx Instructions: TAKE ONE TABLET BY MOUTH DAY venlafaxine 37.5 mg tablet 37.5 mg PO BID Qty: 180 1RF fluticasone propionate 50 mcg/actuation spray,suspension 2 spray intranasal DAILY Qty: 16 5RF gabapentin 100 mg capsule See Rx Instructions .ROUTE .COMPLEX Qty: 60 0RF Dose Instruction: TAKE 2 CAPSULES (200 MG) BY MOUTH AT BEDTIME Rx Instructions: TAKE 2 CAPSULES (200 MG) BY MOUTH AT BEDTIME dicyclomine 10 mg capsule 10 mg PO BID Qty: 60 12RF Rx Instructions: Please take 1 capsule p.o. twice daily ondansetron 4 mg tablet,disintegrating 4 mg PO Q8H PRN (Reason: nausea and vomiting) Qty: 30 0RF furosemide 20 mg tablet See Rx Instructions .ROUTE .COMPLEX Qty: 30 1RF Dose Instruction: TAKE 1 TABLET BY MOUTH EVERY MORNING FOR 7 DAYS NEEDED Rx Instructions: TAKE 1 TABLET BY MOUTH EVERY MORNING FOR 7 DAYS NEEDED omeprazole 20 mg capsule,delayed release(DR/EC) 20 mg PO DAILY Qty: 90 1RF quetiapine [Seroquel] 50 mg tablet 50 mg PO HS Qty: 90 1RF diazepam 2 mg tablet 2 mg PO TID Qty: 90 2RF atorvastatin 40 mg tablet 40 mg PO DAILY Qty: 90 1RF metformin 500 mg tablet 500 mg PO BID Qty: 180 1RF Probiotic 15 billion cell capsule, sprinkle 1 cap PO DAILY 30 Days Qty: 30 0RF Rx Instructions: do not crush/chew/cut; swallow whole OR may open and sprinkle in cold drink/food acetaminophen [Tylenol] 325 mg tablet 325 mg PO QID PRN (Reason: pain) Qty: 30 0RF aspirin 81 mg tablet,chewable 81 mg PO DAILY benzonatate 200 mg capsule 200 mg PO TID PRN (Reason: cough) Qty: 20 0RF loperamide 2 mg capsule 2 mg PO Q6H PRN (Reason: loose stool) 5 Days Qty: 20 0RF Rx Instructions: Please take 4 mg initially, followed by 2 mg after each loose stool, maximum 16 mg/day Referrals Follow up/Referrals: Hansel Ruff MD [Primary Care Provider, Medical] - See instructions Activity Restrictions/Add. Instructions Additional Instructions/Restrictions: Please return to the emergency department with any worsening signs or symptoms, please take your medication as prescribed with food. Please follow-up with your PCP and fruit and vegetable inspector tomorrow for your stress test. Clinical Impressions Clinical Impression: UTI (urinary tract infection) Instructions Patient Instructions: DI for Urinary Tract Infection (UTI) Print Language Print Language: Hebrew Discharge ED Provider: Anahi Arceo Adult HPI General Chief complaint: Altered Mental Status Stated complaint: Confused,disoriented Time Seen by Provider: 03/01/25 21:00 Mode of Arrival: Ambulatory Source of Information: Patient and Relative Limitations: No Limitations History of Present Illness HPI narrative: 74-year-old female presents to the emergency department accompanied by friend/relative for some intermittent confusion that started around 8:30 PM today, patient believes that it is Wednesday , and that she is to get her stress test , she is slated for in the a.m. Patient is GCS of 14-15, some disorientation about specific time she does truly believe that it is Wednesday, she is oriented to person place, somewhat disoriented to month, oriented to year, she denies any fever chills chest pain shortness of breath nausea vomiting constipation diarrhea, lightheadedness, headache, dizziness, no abdominal pain, no constipation no diarrhea, no urinary type symptomatology. Patient is a non- smoker denies any alcohol or drug use, other past medical history is consistent CAD, history of mechanical aortic valve replacement, hypertension, hyperlipidemia, status post CABG, T2DM, MDD, KRISTEL, GERD, she is on dual antiplatelet therapy of Plavix and aspirin. Initial triage vitals are unremarkable. Please note that above description of symptoms, in this electronic medical record under categorization of recalled from ER triage doctor by RN are reflective of an initial nursing assessment, however, is not reflective of my full history and physical exam that was personally taken and clarified. Consequentially, this preceding description of symptoms, which may include the patient's categorized chief complaint in the EMR, do not reflect my personal clinical impression, and the ultimate description of history of present illness and patient stated complaints should be deferred to this section of the note. Unless stated otherwise or congruent with this section of the note, additional signs, symptoms, or incongruence should be interpreted as inaccurate with my clinical impression. Onset (ago): hour(s) Related Data Home Medications ?Medication ?Instructions ?Recorded ?Confirmed aspirin 81 mg chewable tablet 81 mg PO DAILY 07/21/23 02/27/25 polyethylene glycol 3350 17 17 g PO DAILY 11/16/24 gram/dose oral powder (Miralax) Previous Rx's ?Medication ?Instructions ?Recorded clopidogrel 75 mg tablet See Rx Instructions .Route 1 08/13/23 .COMPLEX #90 tabs famotidine 20 mg tablet See Rx Instructions .Route 1 08/13/23 .COMPLEX #90 tabs lactobacillus combo no.11 15 1 cap PO DAILY 30 days #3 0 caps 06/16/24 billion cell sprinkle capsule (Probiotic) acetaminophen 325 mg tablet 325 mg PO QID PRN pain #30 tabs 07/15/24 (Tylenol) blood pressure monitor #1 ea 10/10/24 venlafaxine 37.5 mg tablet 37.5 mg PO BID mood #180 ta bs 11/10/24 nitroglycerin 0.3 mg sublingual 0.3 mg sublingual Q5M PRN chest 11/15/24 tablet pain #20 tabs fluticasone propionate 50 2 spray intranasal DAILY #16 grams 12/11/24 mcg/actuation nasal spray,suspension metoprolol succinate 50 mg 50 mg PO BID #180 tabs 12/10 tablet,extended release 24 hr gabapentin 100 mg capsule See Rx Instructions .Route 0 12/22/24 .COMPLEX #60 caps isosorbide dinitrate 10 mg tablet 10 mg PO TID #90 tab s 12/27/24 benzonatate 200 mg capsule 200 mg PO TID PRN cough #20 caps 01/03/25 loperamide 2 mg capsule 2 mg PO Q6H PRN loose stool 5 days 01/06/25 #20 caps dicyclomine 10 mg capsule 10 mg PO BID #60 caps ondansetron 4 mg disintegrating 4 mg PO Q8H PRN nausea and 01/17/25 tablet vomiting #30 tabs furosemide 20 mg tablet See Rx Instructions .Route 0 01/24/25 .COMPLEX #30 tabs fluconazole 150 mg tablet 150 mg PO Q3D 2 doses #2 tab s 02/08/25 nystatin 100,000 unit/gram topical 1 applic topical TI D Apply to 02/08/25 cream groin rash until clear. #60 grams diazepam 2 mg tablet 2 mg PO TID #90 tabs 5 omeprazole 20 mg capsule,delayed 20 mg PO DAILY #90 ca ps 02/09/25 release quetiapine 50 mg tablet (Seroquel) 50 mg PO HS #90 tab s 02/09/25 atorvastatin 40 mg tablet 40 mg PO DAILY #90 tabs 02/10 metformin 500 mg tablet 500 mg PO BID #180 tabs 02/10 cefdinir 300 mg capsule 300 mg PO BID 7 days #14 cap s 03/01/25 Allergies Allergy/AdvReac Type Severity Reaction Status Date / Time codeine (CODEINE) Allergy Unknown WEAK Verified 02/27/25 09:35 hydrochlorothiazide Allergy Unknown I-RASH Verified 02/27/25 09:35 (HYDROCHLOROTHIAZIDE) hydrocodone (HYDROCODONE) Allergy Unknown I-RASH Verified 02/27/25 09:35 metoclopramide Allergy Unknown SLURRED Verified 02/27/25 09:35 (METOCLOPRAMIDE) SPEECH, WEAK nifedipine (NIFEDIPINE) Allergy Unknown I-HIVES Verified 02/27/25 09:35 prazosin (PRAZOSIN) Allergy Unknown ITCHING/WEA Verified 02/27/25 09:35 K triamterene (TRIAMTERENE) Allergy Unknown I-RASH Verified 02/27/25 09:35 PFSH [facility] Disclaimer: The information contained in this section may have been updated after the patient was seen, as this information can be updated by other users. 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 Family History Other Family history of cancer Family history of diabetes mellitus type II Family history of hypertension Family history of myocardial infarction Social History Smoking Status: Never smoker second hand exposure: Yes alcohol intake: never substance use type: denies use current occupational status: retired and disabled Travel in the last 8 weeks?: None household members: none housing: apartment lives independently: Yes marital status: single education level: middle school service: No senior living: No current occupational exposures/hazards: No caffeine: No do you feel safe at home: Yes victim of physical abuse: No victim of emotional abuse: No victim of sexual abuse: No would you like helpful sources: No Have you lived/traveled outside [place] in past 30 days?: No Contact w/someone who lives/traveled outside US past 30 days?: No Exposure to someone with infectious disease in past 14 days?: No Do you have a fever (greater than 100.4 F or 38 C)?: No Have you tested positive for COVID-19?: No Exposed to someone with COVID-19 in past 14 days?: No Do you have a sore throat?: No Do you have a cough?: No Do you have any weakness?: No Do you have any diarrhea?: No Are you experiencing any unusual bleeding?: No Do you have any muscle aches/pain?: No Do you have any abdominal pain?: No Are you experiencing loss of taste or smell?: No Other Medical History Have you received the Flu Vaccine for this season: No Have you received the Pneumonia Vaccine: No ROS Obtained: Yes All systems reviewed & no additional complaints except as documented Physical Exam General General appearance: alert and in no apparent distress Head Head exam: atraumatic and normocephalic Eye Eye exam: Present PERRL and EOMI ENT ENT exam: Present mucous membranes moist Neck Neck exam: Present normal inspection Chest Chest inspection: Present normal inspection and symmetric chest wall rise Respiratory Respiratory exam: Present normal lung sounds bilaterally; Absent respiratory distress Cardiovascular Cardiovascular exam: Present regular rate and normal rhythm Abdominal Exam Abdominal exam: Present soft; Absent tenderness, guarding, rebound or rigidity Extremities Exam Extremities exam: Present normal inspection Neurological Exam Neurological exam: Present alert, oriented X3 and other (GCS of 14-15, some confusion about specific day and time, oriented to person place and year, moves extremities to command, no focal neurological deficit present, no strength deficit or sensation deficit present) Psychiatric Psychiatric exam: Present normal affect Skin Skin exam: Present warm and dry Medical Decision Making Medical Records Medical records reviewed: Yes I reviewed the patient's medical records. Screening: Per USPSTF and CDC recommendations, given the prevalence of disease in our region, it is our hospital?s policy to screen for HIV and viral Hepatitis for all patients aged 18 and over and those with ongoing risk factors. Chet Inquiry Pt receiving controlled substance: No Chet was queried for this patient: No Vital Signs: 03/01/25 21:13 03/01/25 21:25 03/01/25 21:30 Temperature 98.4 F Temperature Source Oral Pulse Rate 66 69 Pulse Rate [Left] 77 Respiratory Rate 18 13 17 Blood Pressure Blood Pressure [Right Arm] 149/79 H Blood Pressure Mean Blood Pressure Mean [Right Arm] 102 Blood Pressure Source [Right Arm] Automatic Cuff Blood Pressure Position [Right Arm] Sitting 02 Sat by Pulse Oximetry 99 98 98 Oxygen Delivery Method Room Air 03/01/25 21:30 Temperature Temperature Source Pulse Rate Pulse Rate [Left] Respiratory Rate Blood Pressure 120/65 Blood Pressure [Right Arm] Blood Pressure Mean 83 Blood Pressure Mean [Right Arm] Blood Pressure Source [Right Arm] Blood Pressure Position [Right Arm] 02 Sat by Pulse Oximetry Oxygen Delivery Method Lab Data Lab results reviewed: Yes I reviewed the patient's lab results. Lab Results 03/01/25 21:09: Urine Color Yellow, Urine Appearance Sl cloudy, Urine pH 6.0, Ur Specific Stanley 1.010, Urine Protein Negative, Urine Glucose (UA) Negative, Urine Ketones Negative, Urine Blood 1+ A, Urine Nitrate Negative, Urine Bilirubin Negative, Urine Urobilinogen 0.2, Ur Leukocyte Esterase 3+ A, Urine RBC Occasional, Urine WBC 20-50, Ur Squamous Epith Cells Occasional, Urine Bacteria Trace 03/01/25 21:20: WBC 6.8, RBC 3.51 L, Hgb 11.3 L, Hct 32.5 L, MCV 92.6, MCH 32.2 H, MCHC 34.8, RDW 13.3, Plt Count 247, MPV 10.5 H, Neut % (Auto) 66.4, Lymph % (Auto) 21.5, Sheridan % (Auto) 10.8 H, Eos % (Auto) 0.7, Baso % (Auto) 0.3, Neut # (Auto) 4.5, Lymph # (Auto) 1.5, Sheridan # (Auto) 0.7, Eos # (Auto) 0.1, Baso # (Auto) 0.0, Sodium 138, Potassium 3.7, Chloride 105, Carbon Dioxide 24, Anion Gap 12.7, BUN 23 H, Creatinine 0.70, Estimated Creat Clear 42, Estimated GFR 81, Est GFR ( Amer) 98, Glucose 191 H, Calcium 10.0, Magnesium 1.3 L, Total Bilirubin 0.4, AST 24, ALT 21, Alkaline Phosphatase 74, Total Protein 6.8, Albumin 4.7, Globulin 2.1, Albumin/Globulin Ratio 2.2 H 03/01/25 21:20 03/01/25 21:20 Orders (Tests/Meds): ED MEDICATIONS Discontinued Medications Generic Name Dose Route Start Last Admin Trade Name Juan F PRN Reason Stop Dose Admin Cefdinir 300 mg 03/01/25 21:50 Cefdinir 300mg Capsule PO 03/01/25 21:51 ONCE ONE ORDERS Category Date Time Status Complete Blood Count Auto Diff Stat Lab 03/01/25 21:20 Completed Comprehensive Metabolic Panel Stat Lab 03/01/25 21:20 Completed Magnesium Stat Lab 03/01/25 21:20 Completed Urinalysis and Microscopic Stat Lab 03/01/25 21:09 Completed Urine Culture Stat Micro 03/01/25 21:09 Received Medical Decision Narrative: 74-year-old female presents to the emergency department with intermittent confusion, differential diagnosis include but not limited to, sundowning, medication side effect, medication noncompliance, acute UTI, electrolyte disturbance, among others. I discussed this patient's case with the attending physician Will obtain basic laboratory studies, urinalysis and magnesium level. Urinalysis is notable for 3+ leukocyte esterase and hematuria. CBC unremarkable UA is notable for occasional rbc, 20-50 WBCs, occasional squamous epithelial cells, trace urine bacteria. CMP notable for mild BUN elevation 23, hypomagnesia 1.3 otherwise unremarkable CMP. Reexamination of the patient at approximately 9:45 PM, patient is alert oriented x 3, knows the month is February, is now convinced that her stress test is tomorrow , will treat patient for acute UTI and most likely sundowning, patient's family member/friend at the bedside states that she has some waxing waning confusion is now seems to be back at her neurological baseline no acute appointment tomorrow for stress test in the a.m. Patient and family were given strict ED return precaution will give 300 mg p.o. cefdinir prescribed. Milligram p.o. twice daily for 7 days for acute UTI and send urine culture, will also treat patient's hypomagnesia here in the emergency department today. With 400 mg p.o. magnesium. Critical Care Critical Care Time Critical Care Time: No
--- OUTSIDE RECORDS SUMMARY | 2025-03-01 21:08 | XMS_ITS | Clinical Summary ---
Author Organization [facility] Address [address] [place] [address] Care Team Providers Care Dope Dry House Operator Name Role Phone Hansel Ruff MD Primary Care Provider [phone] Allergies Active Allergy Reactions Criticality Noted Date [...] or (1 - 1-dose 75+ series) 12/15/2023 [id number] Vaccine ( - season) 2024 UKY-Influenza Vaccine [...] ORDERABLES Final Re sult [facility] [address] [place] [address] * (ABNORMAL) Hemoglobin A1c (03/28/2018 3:57 PM [...] <6.0% Children and Adolescents <7.5% . Source: [place] [employer]. Standards of medical care in diabetes, 2017. Diabetes Care.2017:40 (suppl 1):S1-S135. . HbA1c assay performed by an ion-exchange chromatography method that is certified traceable to the DCCT. 03/28/2018 3:57 PM EDT 03/28/2018 4:27 PM EDT us [facility] BLOOD ORDERABLES Final Result SUNQUEST from Last 3 Months or Most Recently Relevant to Health Maintenance Insurance [facility] MEDICARE [facility] Care Teams Dope Dry House Operator Relationship Specialty Start Date End Date Hansel Ruff MD [address] [place] [address] [address] [place] [address] PCP - General 02/26/24
[2025-03-01 21:13] VITALS: BP 149/79; PULSE 77; RESP 18; TEMP 36.9; O2SAT 99; BMI 24.0
[2025-03-01 21:17] LABS: Microscopic, Urine URINE MICROSCOPIC (MICROSCOPIC)
[2025-03-01 21:19] LABS: Bilirubin,Urine Negative (Negative); Color,Urine YELLOW (Yellow); Glucose,Urine (UA) Negative (Negative); Ketones,Urine Negative (Negative); Leukocyte Esterase,Urine 3+ (Negative); PH,Urine 6.0 (5.0-8.5); Protein,Urine Negative (Negative); Specific Gravity, Urine 1.010 (1.005-1.030); Urobilinogen,Urine 0.2 EU/dl (0.2)
[2025-03-01 21:25] VITALS: PULSE 66; RESP 13; O2SAT 98
[2025-03-01 21:30] VITALS: BP 120/65; PULSE 69; RESP 17; O2SAT 98
[2025-03-01 21:33] LABS: Hematocrit 32.5 % (37.0-47.0); Hemoglobin 11.3 g/dL (12.2-16.2); Immature Granulocytes % 0.3 %; Mean Corpuscular HGB Conc 34.8 g/dL (31.8-35.4); Mean Corpuscular Hemoglobin 32.2 pg (27.0-31.2); Mean Corpuscular Volume 92.6 fl (81-99); Nucleated Red Blood Cells % 0 %; Platelet Count 247 K/mm3 (142-424); Red Blood Count 3.51 M/mm3 (4.20-5.40); Red Cell Distribution Width-SD 44.8 fL; White Blood Count 6.8 K/mm3 (4.8-10.8)
[2025-03-01 21:36] LABS: Albumin Level 4.7 g/dl (3.5-5.0); Chloride 105 mmol/L (98-107); Potassium 3.7 mmoL/L (3.5-5.1); Sodium 138 mmol/L (136-145)
[2025-03-01 21:38] LABS: Alanine Aminotransferase 21 U/L (12-78); Aspartate Amino Transferase 24 U/L (14-36); Blood Urea Nitrogen 23 mg/dl (7-17); Creatinine Clearance Estimated 42 mL/min (50-200); Creatinine,Serum 0.70 mg/dl (0.52-1.04); Estimated Glomerular Filt Rate 81 ml/min (>60); GFR (African American) 98 ML/MIN (>60)
[2025-03-01 21:39] LABS: Albumin/Globulin Ratio 2.2 (1.1-1.8); Alkaline Phosphatase 74 U/L (38-126); Anion Gap 12.7 mEq/L (5-15); Bilirubin,Total 0.4 mg/dl (0.2-1.3); Calcium 10.0 mg/dl (8.4-10.2); Carbon Dioxide 24 mmol/L (22.0-30.0); Globulin 2.1 g/dL (1.3-3.2); Glucose 191 mg/dl (74-100); Magnesium 1.3 mg/dl (1.6-2.3); Total Protein,Serum 6.8 g/dl (6.3-8.2)
[2025-03-01 21:40] LABS: Bacteria,Urine Trace /lpf; RBC,Urine Occasional #/hpf (0-3); Squamous Epithelial Cell,Urine Occasional #/hpf (0-5); WBC,Urine 20-50 #/hpf (0-3)
[2025-03-01 21:45] VITALS: PULSE 64; RESP 12; O2SAT 97
[2025-03-01] MEDS: MAGNESIUM OXIDE 400MG TABLET 400 MG PO (21:59)
[2025-03-01 22:00] VITALS: BP 116/57; PULSE 62; RESP 14; O2SAT 97
[2025-03-01] MEDS: CEFDINIR 300MG CAPSULE 300 MG PO (22:01)
[2025-03-01 22:07] VITALS: BP 116/57; PULSE 62; RESP 14; TEMP 36.9; O2SAT 97
== END 2025-03-01 22:08 | disposition home or self-care (01) ==
PROVIDERS: Physician Assistant; Emergency Provider Student in an Organized Health Care Education/Training Program; PCP Internal Medicine
DX: N39.0 Urinary tract infection, site not specified (principal); R41.0 Disorientation, unspecified; E83.42 Hypomagnesemia
CPT/HCPCS: 80053; 81001; 83735; 85025; 87086; 99283; 99284

== ENCOUNTER 2025-03-02 07:18 | Outpatient (CLI) | payer MEDICARE, OTHER, SELFPAY ==
--- NOTE | 2025-03-02 | CA_ITS ---
APPROVED REPORT Exam: Pharmacologic Technologist: Sol Camilo Ht: 5 ft 0 in Wt: 123 lbs BSA: 1.52 m2 HR: 90 bpm BP: 117/86 mmHg Rhythm: Paced PVC Medical History Cardiac Risk Factors: Diabetes (non-insulin), FHX of CAD Stress Test Details HR Resting HR: 90 bpm Max Heart Rate (APMHR): 144.269356 bpm Target HR (85% APMHR): 122.969098 bpm Recovery HR: 84 bpm BP Resting BP: 117.0/86.0 mmHg Recovery BP: 116.0/49.0 mmHg ECG Resting ECG: Paced PVC Stress ECG Conclusion During the lexiscan pt experinced no symptoms. PVCs noted. Less than 1.5mm ST segment changes. Non diagnostic ECG/Lexiscan. Electronically signed by : Dori Jalloh MD 03/02/2025 21:25:58
--- OUTSIDE RECORDS SUMMARY | 2025-03-02 07:21 | XMS_ITS | Clinical Summary ---
Author Organization [facility] Address [address] [place] [address] Care Team Providers Care Supervisor Photostat Name Role Phone Hansel Ruff MD Primary Care Provider [phone] Allergies Active Allergy Reactions Criticality Noted Date [...] ASPIRIN 81 MG chewable tablet 07/21/2023 Act malyl atorvastatin (Lipitor) 40 MG tablet 07/21/2023 Active [...] or (1 - 1-dose 75+ series) 12/15/2023 [id number] Vaccine ( - season) 2024 UK[facility]-Influenza Vaccine [...] ORDERABLES Final Re sult [facility] [address] [place] [address] * (ABNORMAL) Hemoglobin A1c (03/28/2018 3:57 PM [...] <6.0% Children and Adolescents <7.5% . Source: [place] [employer]. Standards of medical care in diabetes, 2017. Diabetes Care.2017:40 (suppl 1):S1-S135. . HbA1c assay performed by an ion-exchange chromatography method that is certified traceable to the DCCT. 03/28/2018 3:57 PM EDT 03/28/2018 4:27 PM EDT us [facility] BLOOD ORDERABLES Final Result SUNQUEST from Last 3 Months or Most Recently Relevant to Health Maintenance Insurance [facility] MEDICARE [facility] MEDICAID Care Teams Supervisor Photostat Relationship Specialty Start Date End Date Hansel Ruff MD [address] [place] [address] [address] [place] [address] PCP - General 02/26/24
--- NOTE | 2025-03-02 07:30 | NM_ITS ---
APPROVED REPORT Exam: Nuclear Stress Test Indication: palpiations..fatigue Patient Location: Outpatient Stress Tech: Sol HAND Tech:JOSSELYN Oliver RT(R)(N) Ht: 5 ft 0 in Wt: 122 lbs Bra Size: med HR: 69 bpm BP: 117/86 mmHg BSA: 1.51 m2 TID: 1.10 History: palpiations..fatigue Procedure: Patient received 0.4 mg of intravenous Lexiscan, resting heart rate 69 bpm, resting blood pressure 117/86 mmHg, with Lexiscan maximum heart rate achieved was 90 bpm which is 85 % of the maximum predicted heart rate and blood pressure was 117/55 mmHg. With Lexiscan, patient denied any complaint of chest pain. Cardiac Stress and Resting SPECT Images: Cardiac Stress and Resting SPECT images were obtained using technetium 99m Myoview 31.7 mCi stress and 10.18 mCi at rest. Resting and stress imaging in supine and prone positions demonstrate a medium sized, small sized, mild, fixed perfusion defect in the LV apical wall. There is also a medium sized, moderate, partially reversible perfusion defect in the septal LV wall. Gated imaging demonstrates low normal global LV systolic function. LVEF is calculated at 52%. Conclusion: Medium sized, small sized, mild, fixed perfusion defect in the LV apical wall. There is also a medium sized, moderate, partially reversible perfusion defect in the septal LV wall. Findings are suggestive of partial reversible ischemia. Gated imaging demonstrates low normal global LV systolic function. LVEF is calculated at 52%. Electronically signed by : Dori Jalloh MD 03/02/2025 21:24:54
[2025-03-02] MEDS: SODIUM CHLORIDE 0.9% 10ML SYR (RAD ONLY) 10 ML IV ×2 (09:15)
[2025-03-02] MEDS: ISOTOPE MYOVIEW (PER STUDY) 1 DOSE IV (09:15)
== END 2025-03-02 23:59 | disposition home or self-care (01) ==
LOC: RAD 07:19
PROVIDERS: PCP Internal Medicine; Visit Provider Physician Assistant
DX: Z01.810 Encounter for preprocedural cardiovascular examination (principal); I49.3 Ventricular premature depolarization; R94.39 Abnormal result of other cardiovascular function study
CPT/HCPCS: 78452; 93016; 93017; 93018; A9502; J2785

== ENCOUNTER 2025-03-02 15:48 | Emergency (ER) | payer MEDICARE, OTHER, SELFPAY ==
[2025-03-02 16:03] VITALS: BP 142/66; PULSE 72; RESP 16; TEMP 36.8; O2SAT 100; BMI 23.8
[2025-03-02 16:05] VITALS: BP 142/66; PULSE 68; RESP 16; TEMP 36.8; O2SAT 100
--- OUTSIDE RECORDS SUMMARY | 2025-03-02 16:13 | XMS_ITS | Clinical Summary ---
Author Organization [facility] Address [address] [place] [address] Care Team Providers Care Map Mounter Name Role Phone Hansel Ruff MD Primary Care Provider [phone] Allergies Active Allergy Reactions Criticality Noted Date [...] or (1 - 1-dose 75+ series) 12/15/2023 [id number] Vaccine ( - season) 2024 UKY-Influenza Vaccine [...] ORDERABLES Final Re sult [facility] [address] [place] [address] * (ABNORMAL) Hemoglobin A1c (03/28/2018 3:57 PM [...] <6.0% Children and Adolescents <7.5% . Source: [place] [employer]. Standards of medical care in diabetes, 2017. Diabetes Care.2017:40 (suppl 1):S1-S135. . HbA1c assay performed by an ion-exchange chromatography method that is certified traceable to the DCCT. 03/28/2018 3:57 PM EDT 03/28/2018 4:27 PM EDT us [facility] BLOOD ORDERABLES Final Result SUNQUEST from Last 3 Months or Most Recently Relevant to Health Maintenance Insurance [facility] [place] [address] [facility] MEDICAID Care Teams Map Mounter Relationship Specialty Start Date End Date Hansel Ruff MD [address] [place] [address] [address] [place] [address] PCP - General 02/26/24
--- NOTE | 2025-03-02 17:05 | ED_ITS ---
<Statement entered by Moy Bar DO - 03/03/25 01:43> I was consulted by the [place], and we discussed the complexity of problems being addressed. I approved the treatment and management plan for this patient's care in the emergency department, thus performing a substantive portion of the medical decision making. Moy Bar DO Discharge Plan Disposition Patient Disposition: Home, Self-Care Condition: Good Prescriptions Prescriptions: No Action nitroglycerin 0.3 mg tablet, sublingual 0.3 mg sublingual Q5M PRN (Reason: chest pain) Qty: 20 3RF Rx Instructions: do not exceed 3 doses per episode isosorbide dinitrate 10 mg tablet 10 mg PO TID Qty: 90 12RF Rx Instructions: allow nitrate-free interval of 12-14 hrs per 24-hr period (DME) blood pressure monitor Kit See Rx Instructions .Route Qty: 1 0RF Rx Instructions: As directed polyethylene glycol 3350 [Miralax] 17 gram/dose powder 17 g PO DAILY metoprolol succinate 50 mg tablet extended release 24 hr 50 mg PO BID Qty: 180 1RF fluconazole 150 mg tablet 150 mg PO Q3D Qty: 2 0RF nystatin 100,000 unit/gram cream 1 applic topical TID Qty: 60 1RF Rx Instructions: Apply to groin rash until clear famotidine 20 mg tablet See Rx Instructions .ROUTE .COMPLEX Qty: 90 3RF Dose Instruction: TAKE ONE TABLET BY MOUTH ONCE A DAY FOR GERD Rx Instructions: TAKE ONE TABLET BY MOUTH ONCE A DAY FOR GERD clopidogrel 75 mg tablet See Rx Instructions .ROUTE .COMPLEX Qty: 90 1RF Dose Instruction: TAKE ONE TABLET BY MOUTH DAY Rx Instructions: TAKE ONE TABLET BY MOUTH DAY venlafaxine 37.5 mg tablet 37.5 mg PO BID Qty: 180 1RF fluticasone propionate 50 mcg/actuation spray,suspension 2 spray intranasal DAILY Qty: 16 5RF gabapentin 100 mg capsule See Rx Instructions .ROUTE .COMPLEX Qty: 60 0RF Dose Instruction: TAKE 2 CAPSULES (200 MG) BY MOUTH AT BEDTIME Rx Instructions: TAKE 2 CAPSULES (200 MG) BY MOUTH AT BEDTIME dicyclomine 10 mg capsule 10 mg PO BID Qty: 60 12RF Rx Instructions: Please take 1 capsule p.o. twice daily ondansetron 4 mg tablet,disintegrating 4 mg PO Q8H PRN (Reason: nausea and vomiting) Qty: 30 0RF furosemide 20 mg tablet See Rx Instructions .ROUTE .COMPLEX Qty: 30 1RF Dose Instruction: TAKE 1 TABLET BY MOUTH EVERY MORNING FOR 7 DAYS NEEDED Rx Instructions: TAKE 1 TABLET BY MOUTH EVERY MORNING FOR 7 DAYS NEEDED omeprazole 20 mg capsule,delayed release(DR/EC) 20 mg PO DAILY Qty: 90 1RF quetiapine [Seroquel] 50 mg tablet 50 mg PO HS Qty: 90 1RF diazepam 2 mg tablet 2 mg PO TID Qty: 90 2RF atorvastatin 40 mg tablet 40 mg PO DAILY Qty: 90 1RF metformin 500 mg tablet 500 mg PO BID Qty: 180 1RF Probiotic 15 billion cell capsule, sprinkle 1 cap PO DAILY 30 Days Qty: 30 0RF Rx Instructions: do not crush/chew/cut; swallow whole OR may open and sprinkle in cold drink/food acetaminophen [Tylenol] 325 mg tablet 325 mg PO QID PRN (Reason: pain) Qty: 30 0RF cefdinir 300 mg capsule 300 mg PO BID 7 Days Qty: 14 0RF aspirin 81 mg tablet,chewable 81 mg PO DAILY benzonatate 200 mg capsule 200 mg PO TID PRN (Reason: cough) Qty: 20 0RF loperamide 2 mg capsule 2 mg PO Q6H PRN (Reason: loose stool) 5 Days Qty: 20 0RF Rx Instructions: Please take 4 mg initially, followed by 2 mg after each loose stool, maximum 16 mg/day Referrals Follow up/Referrals: Hansel Ruff MD [Primary Care Provider, Medical] - See instructions Activity Restrictions/Add. Instructions Additional Instructions/Restrictions: Please utilize your wound care supplies as needed for any bleeding, please keep your wound clean and dry. Please follow-up with your doctors. Clinical Impressions Clinical Impression: Skin tear Print Language Print Language: Estonian Discharge ED Provider: Moy Bar Adult HPI General Chief complaint: Wound/Laceration Stated complaint: Skin tear Time Seen by Provider: 03/02/25 16:16 Mode of Arrival: Ambulatory Source of Information: Patient Description of Symptoms (Recalled from ER Triage Doc. by RN): patient present to the ED for a skin tear that wont stop bleeding. patient had a stress test this morning, the skin tear has been bleeding ever since. History of Present Illness HPI narrative: 74-year-old female presents the emergency department with a right dorsal hand skin tear that will not stop bleeding after she had a stress test , this morning and the nurse tore my skin , patient has any fever chills chest pain shortness of breath nausea vomiting constipation diarrhea no abdominal pain, no urinary cosmetology, patient denies any alcohol tobacco or drug use, patient was seen in the emergency department last night was treated for acute UTI, she states she is taking his medication as prescribed. Initial triage vitals are unremarkable. Other past medical history of system with hyperlipidemia, coronary artery disease, status post CABG status post and placement, T2DM, hypertension, KRISTEL, MDD. Please note that above description of symptoms, in this electronic medical record under categorization of recalled from ER triage doctor by RN are reflective of an initial nursing assessment, however, is not reflective of my full history and physical exam that was personally taken and clarified. Consequentially, this preceding description of symptoms, which may include the patient's categorized chief complaint in the EMR, do not reflect my personal clinical impression, and the ultimate description of history of present illness and patient stated complaints should be deferred to this section of the note. Unless stated otherwise or congruent with this section of the note, additional signs, symptoms, or incongruence should be interpreted as inaccurate with my clinical impression. Onset (ago): hour(s) Related Data Home Medications ?Medication ?Instructions ?Recorded ?Confirmed aspirin 81 mg chewable tablet 81 mg PO DAILY 07/21/23 02/27/25 polyethylene glycol 3350 17 17 g PO DAILY 11/16/24 gram/dose oral powder (Miralax) Previous Rx's ?Medication ?Instructions ?Recorded clopidogrel 75 mg tablet See Rx Instructions .Route 1 08/13/23 .COMPLEX #90 tabs famotidine 20 mg tablet See Rx Instructions .Route 1 08/13/23 .COMPLEX #90 tabs lactobacillus combo no.11 15 1 cap PO DAILY 30 days #3 0 caps 06/16/24 billion cell sprinkle capsule (Probiotic) acetaminophen 325 mg tablet 325 mg PO QID PRN pain #30 tabs 07/15/24 (Tylenol) blood pressure monitor #1 ea 10/10/24 venlafaxine 37.5 mg tablet 37.5 mg PO BID mood #180 ta bs 11/10/24 nitroglycerin 0.3 mg sublingual 0.3 mg sublingual Q5M PRN chest 11/15/24 tablet pain #20 tabs fluticasone propionate 50 2 spray intranasal DAILY #16 grams 12/11/24 mcg/actuation nasal spray,suspension metoprolol succinate 50 mg 50 mg PO BID #180 tabs 12/10 tablet,extended release 24 hr gabapentin 100 mg capsule See Rx Instructions .Route 0 12/22/24 .COMPLEX #60 caps isosorbide dinitrate 10 mg tablet 10 mg PO TID #90 tab s 12/27/24 benzonatate 200 mg capsule 200 mg PO TID PRN cough #20 caps 01/03/25 loperamide 2 mg capsule 2 mg PO Q6H PRN loose stool 5 days 01/06/25 #20 caps dicyclomine 10 mg capsule 10 mg PO BID #60 caps ondansetron 4 mg disintegrating 4 mg PO Q8H PRN nausea and 01/17/25 tablet vomiting #30 tabs furosemide 20 mg tablet See Rx Instructions .Route 0 01/24/25 .COMPLEX #30 tabs fluconazole 150 mg tablet 150 mg PO Q3D 2 doses #2 tab s 02/08/25 nystatin 100,000 unit/gram topical 1 applic topical TI D Apply to 02/08/25 cream groin rash until clear. #60 grams diazepam 2 mg tablet 2 mg PO TID #90 tabs 5 omeprazole 20 mg capsule,delayed 20 mg PO DAILY #90 ca ps 02/09/25 release quetiapine 50 mg tablet (Seroquel) 50 mg PO HS #90 tab s 02/09/25 atorvastatin 40 mg tablet 40 mg PO DAILY #90 tabs 02/10 metformin 500 mg tablet 500 mg PO BID #180 tabs 02/10 cefdinir 300 mg capsule 300 mg PO BID 7 days #14 cap s 03/01/25 Allergies Allergy/AdvReac Type Severity Reaction Status Date / Time codeine (CODEINE) Allergy Unknown WEAK Verified 02/27/25 09:35 hydrochlorothiazide Allergy Unknown I-RASH Verified 02/27/25 09:35 (HYDROCHLOROTHIAZIDE) hydrocodone (HYDROCODONE) Allergy Unknown I-RASH Verified 02/27/25 09:35 metoclopramide Allergy Unknown SLURRED Verified 02/27/25 09:35 (METOCLOPRAMIDE) SPEECH, WEAK nifedipine (NIFEDIPINE) Allergy Unknown I-HIVES Verified 02/27/25 09:35 prazosin (PRAZOSIN) Allergy Unknown ITCHING/WEA Verified 02/27/25 09:35 K triamterene (TRIAMTERENE) Allergy Unknown I-RASH Verified 02/27/25 09:35 [facility] Disclaimer: The information contained in this section may have been updated after the patient was seen, as this information can be updated by other users. 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 Family History Other Family history of cancer Family history of diabetes mellitus type II Family history of hypertension Family history of myocardial infarction Social History Smoking Status: Never smoker second hand exposure: Yes alcohol intake: never substance use type: denies use current occupational status: retired and disabled Travel in the last 8 weeks?: None household members: none housing: apartment lives independently: Yes marital status: single education level: middle school service: No [place] [facility]: No current occupational exposures/hazards: No caffeine: No do you feel safe at home: Yes victim of physical abuse: No victim of emotional abuse: No victim of sexual abuse: No would you like helpful sources: No Have you lived/traveled outside US in past 30 days?: No Contact w/someone who lives/traveled outside US past 30 days?: No Exposure to someone with infectious disease in past 14 days?: No Do you have a fever (greater than 100.4 F or 38 C)?: No Have you tested positive for COVID-19?: No Exposed to someone with COVID-19 in past 14 days?: No Do you have a sore throat?: No Do you have a cough?: No Do you have any weakness?: No Do you have any diarrhea?: No Are you experiencing any unusual bleeding?: No Do you have any muscle aches/pain?: No Do you have any abdominal pain?: No Are you experiencing loss of taste or smell?: No Other Medical History Have you received the Flu Vaccine for this season: No Have you received the Pneumonia Vaccine: No ROS Obtained: Yes All systems reviewed & no additional complaints except as documented Physical Exam General General appearance: alert and in no apparent distress Head Head exam: atraumatic and normocephalic Eye Eye exam: Present PERRL and EOMI ENT ENT exam: Present mucous membranes moist Neck Neck exam: Present normal inspection Chest Chest inspection: Present normal inspection and symmetric chest wall rise Respiratory Respiratory exam: Present normal lung sounds bilaterally; Absent respiratory distress Cardiovascular Cardiovascular exam: Present regular rate and normal rhythm Abdominal Exam Abdominal exam: Present soft; Absent tenderness Extremities Exam Extremities exam: Present normal inspection Neurological Exam Neurological exam: Present alert and oriented X3 Psychiatric Psychiatric exam: Present normal affect Skin Skin exam: Present warm, dry and other (2 to 3 cm skin tear, on the dorsal aspect of the patient's right hand, no active bleeding.) Medical Decision Making Medical Records Medical records reviewed: Yes I reviewed the patient's medical records. Screening: Per USPSTF and CDC recommendations, given the prevalence of disease in our region, it is our hospital?s policy to screen for HIV and viral Hepatitis for all patients aged 18 and over and those with ongoing risk factors. Chet Inquiry Pt receiving controlled substance: No Chet was queried for this patient: No Vital Signs: 03/02/25 16:03 03/02/25 16:05 Temperature 98.2 F 98.2 F Temperature Source Temporal Artery Scan Temporal Artery Scan Pulse Rate 68 Pulse Rate [Right Radial] 72 Respiratory Rate 16 16 Blood Pressure 142/66 H Blood Pressure [Right Arm] 142/66 H Blood Pressure Mean [Right Arm] 91 Blood Pressure Source Automatic Cuff Blood Pressure Source [Right Arm] Automatic Cuff Blood Pressure Position Sitting Blood Pressure Position [Right Arm] Sitting 02 Sat by Pulse Oximetry 100 100 Oxygen Delivery Method Room Air Room Air Medical Decision Narrative: 74-year-old female presents to the emergency department with a skin tear on the right hand, differential diagnose include but not limited to, skin tear/abrasion among others. I discussed this patient's case with the attending physician Dr. Bar Patient has a very small 2 to 3 cm skin tear with no active bleeding at this time, will utilize nonstick adhesive bandage with Coban, for the patient's skin tear, patient was given strict ED return precautions, patient voiced understanding and agreement with current treatment plan/discharge plan. Will follow-up with PCP and other providers as directed. Critical Care Critical Care Time Critical Care Time: No
[2025-03-02 17:23] VITALS: BP 123/60; PULSE 84; RESP 16; TEMP 36.7; O2SAT 97
== END 2025-03-02 17:23 | disposition home or self-care (01) ==
PROVIDERS: Emergency Provider Student in an Organized Health Care Education/Training Program; PCP Internal Medicine
DX: S61.401A Unspecified open wound of right hand, initial encounter (principal); X58.XXXA Exposure to other specified factors, initial encounter
CPT/HCPCS: 99282; 99283

== ENCOUNTER 2025-03-08 09:44 | Day surgery (SDC) | payer MEDICARE, OTHER, SELFPAY ==
[2025-03-08] VITALS (13 sets, daily range): BP systolic 133–156; BP diastolic 58–70; PULSE 48–62; RESP 16–18; TEMP 36.9; O2SAT 97–100; BMI 24.0
--- NOTE | 2025-03-08 07:01 | IR_ITS ---
APPROVED REPORT Patient Location: Outpatient PROCEDURES Left heart catheterization Left ventriculogram Selective coronary angiogram Selective engage left internal mammary artery Selective engagement of the saphenous vein graft to the LAD Selective engagement of the saphenous vein graft to the ramus intermedius INDICATION Known coronary artery disease, History of coronary bypass surgery, Worsening angina pectoris, Preoperative evaluation, Informed consent was obtained prior to the procedure. COMPLICATIONS NONE Estimated Blood Loss: LESS THAN 10 ML TECHNIQUE One percent lidocaine used to anesthetize the right anterior aspect of the wrist. The right radial artery was accessed via the Seldinger technique. A 6 Divehi sheath was placed in the right radial artery. 2.5 mg of Verapamil, 800 mcg of nitroglycerin, 1mg Lidocaine and 5000 U Heparin were given through the arterial sheath. The JL3 catheter was also used to perform left heart catheterization, left ventriculogram and selective coronary angiogram. At the end of the procedure the sheath was removed good hemostasis was achieved using Traclet band, patient was transferred to the postop holding area in stable condition. ANGIOGRAPHIC RESULTS The left main artery Has a stent in the ostial segment which extends throughout its entire course. The stent is patent however there is a distal 40 to 50% concentric in-stent restenotic lesion The left anterior descending artery Is patent in the proximal to mid segment with stents originating from the left main artery throughout its entire proximal and mid course. The stents are patent however the midportion is subtotally occluded with scant evidence of competitive flow from the saphenous vein graft to the LAD The circumflex artery Is nondominant has stents originating from the left main artery which has an ostial 60 to 70% stenosis. Distally there are 2 small obtuse marginal arteries which are patent and have antegrade flow The right coronary artery Large dominant has diffuse 30 and 40% mid vessel stenoses. It gives rise to a large posterior descending artery and posterolateral branch The HANDY ventriculogram reveals Ejection fraction of 45% The left ventricular end-diastolic pressure 15 mmHg OCAMPO is physiologically and anatomically occluded Saphenous vein graft to LAD is patent. Distal to the anastomosis the distal and apical LAD is occluded. There is retrograde filling up the mary's igloo LAD to multiple small septal perforators Saphenous vein graft to ramus intermedius has distal 70 and 60% stenoses. The stenotic area is of a equal caliber to the size of the ramus intermedius that feeds IMPRESSION Coronary artery disease as described above which is best managed medically Reduced ejection fraction 45% Normal LVEDP PLAN 1. Medical management for coronary artery disease 2. Patient is an acceptable risk to proceed with EGD Electronically signed by : Shakir Chavez MD 03/08/2025 14:42:52
[2025-03-08] MEDS: NITROGLYCERIN 800MCG/8ML SYR (CATH LAB) 800 MCG IA (12:08)
[2025-03-08] MEDS: LIDOCAINE 1% 10ML MDV 10 ML IJ (12:09)
[2025-03-08] MEDS: 0.9 % SODIUM CHLORIDE 500 ML 25 ML IV (12:09)
[2025-03-08] MEDS: HEPARIN 1,000 UNITS/500ML NS (CATH LAB) 3000 UNIT IV (12:09)
[2025-03-08] MEDS: VERAPAMIL 2.5MG/ML 2ML VIAL 2.5 MG IV (12:10)
[2025-03-08] MEDS: HEPARIN 1,000 UNITS/ML 10ML VIAL (CATH LAB) 5000 UNIT IV (12:10)
[2025-03-08] MEDS: MIDAZOLAM HCL 1MG/ML 5ML VIAL 1 MG IV (12:12)
[2025-03-08] MEDS: FENTANYL 100MCG/2ML VIAL 50 MCG IV (12:12)
[2025-03-08] MEDS: IOPAMIDOL-370 (76%);100ML BOTTLE 60 ML IV (12:17)
== END 2025-03-08 15:15 | disposition home or self-care (01) ==
LOC: CATHLAB 09:45
PROVIDERS: PCP Internal Medicine; Visit Provider Internal Medicine
PROC: 4A023N7 Measurement of Cardiac Sampling and Pressure, Left Heart, Percutaneous Approach (ICD-10-PCS; CPT 93452; principal; 2025-03-08 10:15)
DX: Z01.810 Encounter for preprocedural cardiovascular examination (principal); I25.119 Atherosclerotic heart disease of native coronary artery with unspecified angina pectoris; T82.855A Stenosis of coronary artery stent, initial encounter; R94.39 Abnormal result of other cardiovascular function study; I65.23 Occlusion and stenosis of bilateral carotid arteries; I11.9 Hypertensive heart disease without heart failure; E11.42 Type 2 diabetes mellitus with diabetic polyneuropathy; R91.1 Solitary pulmonary nodule; E78.49 Other hyperlipidemia; R16.0 Hepatomegaly, not elsewhere classified; Z95.1 Presence of aortocoronary bypass graft; Z95.0 Presence of cardiac pacemaker; Z95.2 Presence of prosthetic heart valve; Z95.5 Presence of coronary angioplasty implant and graft; Z79.82 Long term (current) use of aspirin; Z79.84 Long term (current) use of oral hypoglycemic drugs; Z79.51 Long term (current) use of inhaled steroids; Z79.02 Long term (current) use of antithrombotics/antiplatelets; Z79.899 Other long term (current) drug therapy; Z88.8 Allergy status to other drugs, medicaments and biological substances; Z88.5 Allergy status to narcotic agent; Z82.49 Family history of ischemic heart disease and other diseases of the circulatory system; Y84.8 Other medical procedures as the cause of abnormal reaction of the patient, or of later complication, without mention of misadventure at the time of the procedure
CPT/HCPCS: 93459; 99152; C1725; C1769; C1894; J1200; J1644; J2003; J3010; J7040; Q9967

== ENCOUNTER 2025-05-17 07:38 | Outpatient (CLI) | payer MEDICARE, OTHER, SELFPAY ==
--- OUTSIDE RECORDS SUMMARY | 2025-05-17 07:40 | XMS_ITS | Clinical Summary ---
Author Organization [facility] Address [address] [place] [address] Care Team Providers Care Ip Paralegal Name Role Phone Hansel Ruff MD Primary Care Provider [phone] Allergies Active Allergy Reactions Criticality Noted Date [...] Problem Noted Date Diagnosed Date Diverticulitis 03/16/2024 Blood loss anemia 03/16/2024 Carotid artery stenosis 03/16/2024 CHF exacerbation 03/16/2024 Femur fracture, left 03/16/2024 Headache 03/16/2024 Hemangioma of liver 03/16/2024 Hypodense mass of liver 03/16/2024 Osteoarthritis of right knee 03/16/2024 Primary osteoarthritis of left knee 03/16/2024 History of mechanical aortic valve replacement 0 03/16/2024 Trochanteric bursitis of left hip 03/16/2024 Typical angina 03/16/2024 Epigastric pain 02/21/2024 Gastro-esophageal reflux disease without esophag itis 01/25/2024 Gastroparesis 01/25/2024 Hypertensive heart disease 01/25/2024 Pure hypercholesterolemia, unspecified Type 2 diabetes mellitus without complications 0 01/25/2024 Constipation 12/16/2023 Candidiasis of skin and nail 12/09/2023 Elevated blood-pressure read ing, without diagnosis of hypertension 12/04/2023 Achalasia 11/17/2023 Adult failure to thrive 11/03/2023 Presence of aortocoronary bypass graft 4 Polyp of colon 10/23/2023 Dysphagia 10/16/2023 Hepatomegaly, not elsewhere classified 4 Hiatal hernia 10/06/2023 Acute hyperkalemia 07/21/2023 Cardiac pacemaker in situ 07/21/2023 Acute blood loss as cause of postoperative anemi a 04/20/2018 Sick sinus syndrome 03/10/2018 Coronary artery disease 01/26/2018 S/P CABG x 1 01/26/2018 Aortic stenosis 01/24/2018 Heart murmur 01/24/2018 Diabetes 08/25/2016 Hyperlipidemia 08/25/2016 Hypertension 08/25/2016 Lung nodule 08/25/2016 Resolved Problems Problem Noted Date Diagnosed Date Resolved Date Colitis 03/16/2024 04/01/2025 Chronic abdominal pain 01/25/202404/01 Acute UTI (urinary tract infection) 12/04/2023 04/01/2025 Chest pain 12/02/2023 04/01/2025 Nausea with vomiting, unspecified 10/16/2023 04/01/2025 MAX (acute kidney injury) 07/21/2023 Immunizations Immunization Administration Dates Next Due Influenza, [...] or (1 - 1-dose 75+ series) 12/15/2023 [id number] Vaccine (1 - 2023-25 season) 2025 UKY-Influenza Vaccine (#1) 03/12/202503/25, 03/22/2019, 03/18/2018, Additional [...] BLOOD ORDERABLES Final Re sult [facility] [address] [place] [id number] * (ABNORMAL) Hemoglobin A1c (03/28/2018 3:57 PM [...] <6.0% Children and Adolescents <7.5% . Source: [employer] [employer]. Standards of medical care in diabetes, 2017. Diabetes Care.2017:40 (suppl 1):S1-S135. . HbA1c assay performed by an ion-exchange chromatography method that is certified traceable to the DCCT. 03/28/2018 3:57 PM EDT 03/28/2018 4:27 PM EDT us Rosario Ibarra PA LAB BLOOD ORDERABLES Final Result SUNQUEST from Last 3 Months or Most Recently Relevant to Health Maintenance Insurance [place] [id number] [facility] [place] [address] [facility] MEDICAID Care Teams Ip Paralegal Relationship Specialty Start Date End Date Hansel Ruff MD [address] [facility] [address] [place] [address] PCP - General 02/26/24
--- NOTE | 2025-05-17 08:00 | CT_ITS ---
FINAL REPORT TECHNIQUE: Thin section axial images were obtained from skull base to vertex without contrast. Coronal reconstruction images were obtained from the axial data. Exam was performed using dose reduction techniques such as automated exposure control, adjustment of the mA and kV according to patient size, and use of iterative reconstruction technique. CLINICAL HISTORY: Encephalopathy, hallucination, mental status change COMPARISON: 02/27/2023 FINDINGS: There is atrophy. No mass effect or midline shift. No intracranial hemorrhage. No hydrocephalus. Periventricular low density is likely related to changes of chronic small vessel ischemia. The basilar cisterns are preserved. The posterior fossa is without acute abnormality. The soft tissues are without acute abnormality. No acute osseous abnormality is identified. IMPRESSION: No acute intracranial abnormality. Atrophy and changes suggesting chronic small vessel ischemia. Reviewed, Interpreted and Dictated by Yne Alatorre MD Transcribed by Tana Anderson Authenticated and . [facility]
--- NOTE | 2025-05-17 08:30 | MM_ITS ---
PROCEDURE INFORMATION: Exam: MG Bilateral Screening 3D Mammography Exam date and time: 05/17/2025 8:29 AM Age: 74 years old Clinical indication: Screening examination TECHNIQUE: Imaging protocol: Bilateral Screening tomosynthesis and 2D mammography including computer-aided detection (CAD) when performed. COMPARISON: MG MM DIG SCREENING MAMM BI W/CAD 05/01/2024 12:52 PM FINDINGS: MAMMOGRAPHY: Breast composition: The breasts are almost entirely fatty. Mass: None. Architectural distortion: None. Calcifications: No suspicious calcifications. Asymmetric density: None. Skin thickening: None. Axillary adenopathy: None. Other findings: A power pack overlies the left chest. IMPRESSION: No mammographic evidence of malignancy. Annual screening is recommended unless otherwise clinically indicated. ASSESSMENT: BI-RADS Category 1: Negative.
== END 2025-05-17 23:59 | disposition home or self-care (01) ==
LOC: RAD 07:38
PROVIDERS: PCP Internal Medicine; Visit Provider Specialist
DX: Z12.31 Encounter for screening mammogram for malignant neoplasm of breast (principal); G31.9 Degenerative disease of nervous system, unspecified; R90.89 Other abnormal findings on diagnostic imaging of central nervous system; R92.313 Mammographic fatty tissue density, bilateral breasts; F32.A Depression, unspecified; G93.40 Encephalopathy, unspecified; R41.82 Altered mental status, unspecified; R44.3 Hallucinations, unspecified
CPT/HCPCS: 70450; 77063; 77067

== ENCOUNTER 2025-05-31 11:15 | Outpatient (CLI) | payer MEDICARE, OTHER, SELFPAY ==
[2025-05-31 11:35] LABS: Hematocrit 34.3 % (37.0-47.0); Hemoglobin 11.1 g/dL (12.2-16.2); Immature Granulocytes % 0.4 %; Mean Corpuscular HGB Conc 32.4 g/dL (31.8-35.4); Mean Corpuscular Hemoglobin 31.6 pg (27.0-31.2); Mean Corpuscular Volume 97.7 fl (81-99); Nucleated Red Blood Cells % 0 %; Platelet Count 188 K/mm3 (142-424); Red Blood Count 3.51 M/mm3 (4.20-5.40); Red Cell Distribution Width-SD 48.1 fL; White Blood Count 4.8 K/mm3 (4.8-10.8)
[2025-05-31 11:44] LABS: Hemoglobin A1C 6.9 % (4.0-6.0)
[2025-05-31 12:21] LABS: Albumin Level 4.7 g/dl (3.5-5.0); Chloride 98 mmol/L (98-107)
[2025-05-31 12:22] LABS: Potassium 4.1 mmoL/L (3.5-5.1); Sodium 140 mmol/L (136-145)
[2025-05-31 12:24] LABS: Alanine Aminotransferase 15 U/L (12-78); Anion Gap 19.1 mEq/L (5-15); Aspartate Amino Transferase 24 U/L (14-36); Blood Urea Nitrogen 22 mg/dl (7-17); Carbon Dioxide 27 mmol/L (22.0-30.0); Creatinine,Serum 0.90 mg/dl (0.52-1.04); Estimated Glomerular Filt Rate 61 ml/min (>60); GFR (African American) 74 ML/MIN (>60)
[2025-05-31 12:25] LABS: Albumin/Globulin Ratio 2.1 (1.1-1.8); Alkaline Phosphatase 70 U/L (38-126); Bilirubin,Total 0.4 mg/dl (0.2-1.3); Calcium 9.9 mg/dl (8.4-10.2); Cholesterol 122 mg/dl (140-200); Globulin 2.2 g/dL (1.3-3.2); Glucose 154 mg/dl (74-100); HDL Cholesterol 50 mg/dl (40-60); Total Protein,Serum 6.9 g/dl (6.3-8.2); Triglycerides 141 mg/dl (30-150)
--- OUTSIDE RECORDS SUMMARY | 2025-05-31 12:47 | XMS_ITS | Clinical Summary ---
Author Organization [facility] Address [address] [place] [address] Care Team Providers Care Blue Split Trimmer Name Role Phone Hansel Ruff MD Primary Care Provider [phone] Allergies Active Allergy Reactions Criticality Noted Date [...] or (1 - 1-dose 75+ series) 12/15/2023 [id number] Vaccine (1 - 2024- season) 2025 UKY-Influenza Vaccine (#1) 03/12/202503/25, 03/22/2019, [...] BLOOD ORDERABLES Final Re sult [facility] [address] [place] [id number] * (ABNORMAL) Hemoglobin A1c (03/28/2018 3:57 PM [...] <6.0% Children and Adolescents <7.5% . Source: [place] [employer]. Standards of medical care in diabetes, 2017. Diabetes Care.2017:40 (suppl 1):S1-S135. . HbA1c assay performed by an ion-exchange chromatography method that is certified traceable to the DCCT. 03/28/2018 3:57 PM EDT 03/28/2018 4:27 PM EDT us Rosario Ibarra PA LAB BLOOD ORDERABLES Final Result SUNQUEST from Last 3 Months or Most Recently Relevant to Health Maintenance Insurance [place] [id number] [facility] MEDICARE [facility] MEDICAID Care Teams Blue Split Trimmer Relationship Specialty Start Date End Date Hansel Ruff MD [address] [facility] [address] [place] [address] PCP - General 02/26/24
[2025-05-31 12:55] LABS: Thyroid Stimulating Hormone 1.45 uIU/mL (0.465-4.68)
== END 2025-05-31 23:59 | disposition home or self-care (01) ==
LOC: LAB 11:15
PROVIDERS: PCP Internal Medicine; Visit Provider Internal Medicine
DX: L65.9 Nonscarring hair loss, unspecified (principal); E11.42 Type 2 diabetes mellitus with diabetic polyneuropathy; E11.59 Type 2 diabetes mellitus with other circulatory complications; I10 Essential (primary) hypertension; E78.49 Other hyperlipidemia
CPT/HCPCS: 36415; 80053; 80061; 83036; 84443; 85025

== ENCOUNTER 2025-07-07 14:06 | Emergency (ER) | payer MEDICARE, SELFPAY ==
[2025-07-07 14:13] VITALS: BP 135/62; PULSE 66; RESP 18; TEMP 36.6; O2SAT 97; BMI 23.4
--- NOTE | 2025-07-07 14:18 | HMH.EDGENADL ---
Discharge Plan Disposition Patient Disposition: Home, Self-Care Condition: Good Prescriptions Prescriptions: No Action nitroglycerin 0.3 mg tablet, sublingual 0.3 mg sublingual Q5M PRN (Reason: chest pain) Qty: 20 3RF Rx Instructions: do not exceed 3 doses per episode cholecalciferol (vitamin D3) 50 mcg (2,000 unit) capsule 50 mcg PO DAILY amoxicillin 500 mg capsule 1,000 mg PO BID Qty: 40 0RF (DME) blood pressure monitor Kit See Rx Instructions .Route Qty: 1 0RF Rx Instructions: As directed polyethylene glycol 3350 [Miralax] 17 gram/dose powder 17 g PO DAILY venlafaxine 50 mg tablet 50 mg PO BID Qty: 60 5RF isosorbide dinitrate 10 mg tablet 10 mg PO TID Patient Comments: TAKE 1 TABLET BY MOUTH 3 TIMES A DAY. allow nitrate free interval of 12 TO 14 hours PER 24 hour period. fluticasone propionate 50 mcg/actuation spray,suspension 2 spray intranasal DAILY Qty: 16 5RF omeprazole 20 mg capsule,delayed release(DR/EC) 20 mg PO DAILY Qty: 90 1RF quetiapine [Seroquel] 50 mg tablet 50 mg PO HS Qty: 90 1RF atorvastatin 40 mg tablet 40 mg PO DAILY Qty: 90 1RF metformin 500 mg tablet 500 mg PO BID Qty: 180 1RF diazepam 2 mg tablet 2 mg PO TID Qty: 90 2RF famotidine 20 mg tablet See Rx Instructions .ROUTE .COMPLEX Qty: 90 3RF Dose Instruction: TAKE ONE TABLET BY MOUTH ONCE A DAY FOR GERD Rx Instructions: TAKE ONE TABLET BY MOUTH ONCE A DAY FOR GERD clopidogrel 75 mg tablet See Rx Instructions .ROUTE .COMPLEX Qty: 90 1RF Dose Instruction: TAKE ONE TABLET BY MOUTH DAY Rx Instructions: TAKE ONE TABLET BY MOUTH DAY metoprolol succinate 50 mg tablet extended release 24 hr 50 mg PO BID Qty: 180 1RF gabapentin 100 mg capsule See Rx Instructions .ROUTE .COMPLEX Qty: 60 0RF Dose Instruction: TAKE 2 CAPSULES (200 MG) BY MOUTH AT BEDTIME Rx Instructions: TAKE 2 CAPSULES (200 MG) BY MOUTH AT BEDTIME ondansetron 4 mg tablet,disintegrating See Rx Instructions .ROUTE .COMPLEX Qty: 30 1RF Dose Instruction: DISSOLVE 1 TABLET ON THE TONGUE EVERY 8 HOURS NEEDED FOR FOR NAUSEA AND VOMITING Rx Instructions: DISSOLVE 1 TABLET ON THE TONGUE EVERY 8 HOURS NEEDED FOR FOR NAUSEA AND VOMITING Probiotic 15 billion cell capsule, sprinkle 1 cap PO DAILY 30 Days Qty: 30 0RF Rx Instructions: do not crush/chew/cut; swallow whole OR may open and sprinkle in cold drink/food acetaminophen [Tylenol] 325 mg tablet 325 mg PO QID PRN (Reason: pain) Qty: 30 0RF aspirin 81 mg tablet,chewable 81 mg PO DAILY loperamide 2 mg capsule 2 mg PO Q6H PRN (Reason: loose stool) 5 Days Qty: 20 0RF Rx Instructions: Please take 4 mg initially, followed by 2 mg after each loose stool, maximum 16 mg/day Referrals Follow up/Referrals: Hansel Ruff MD [Primary Care Provider, Medical] - See instructions Activity Restrictions/Add. Instructions Additional Instructions/Restrictions: Increase fluids, water and not soda or tea. Can drink cranberry juice or cranberry extract. Wipe front to back Wear cotton underwear Empty bladder after intercourse Be sure to follow-up anytime for new or worsening symptoms Follow-up with primary care this week. Clinical Impressions Clinical Impression: Urinary frequency Instructions Patient Instructions: DI for Dysuria in Adults Print Language Print Language: Greenlandic Discharge ED Provider: Kamlesh Wei General Adult HPI <Juhi Guadarrama ([facility]), SCHEDULING COORDINATOR - Last Filed: 07/07/25 15:29> General Chief complaint: PAIN Stated complaint: flank pain Time Seen by Provider: 07/07/25 14:10 Mode of Arrival: EMS Source of Information: Patient Description of Symptoms (Recalled from ER Triage Doc. by RN): Patient reports flank pain. History of Present Illness HPI narrative: 74-year-old female presents for right lower back pain, urinary frequency, urgency, and burning at times for the last couple days. Patient denies fever Related Data Home Medications ?Medication ?Instructions ?Recorded ?Confirmed aspirin 81 mg chewable tablet 81 mg PO DAILY 07/21/23 06/26/25 polyethylene glycol 3350 17 17 g PO DAILY 11/16/24 06/26/25 gram/dose oral powder (Miralax) cholecalciferol (vitamin D3) 50 50 mcg PO DAILY 04/30/25 06/26/25 mcg (2,000 unit) capsule isosorbide dinitrate 10 mg tablet 10 mg PO TID 05/03/25 06/26/25 Previous Rx's ?Medication ?Instructions ?Recorded lactobacillus combo no.11 15 1 cap PO DAILY 30 days #30 caps 06/16/24 billion cell sprinkle capsule (Probiotic) acetaminophen 325 mg tablet 325 mg PO QID PRN pain #30 tabs 07/15/24 (Tylenol) blood pressure monitor #1 ea 10/10/24 nitroglycerin 0.3 mg sublingual 0.3 mg sublingual Q5M PRN chest 11/15/24 tablet pain #20 tabs fluticasone propionate 50 2 spray intranasal DAILY #16 grams 12/11/24 mcg/actuation nasal spray,suspension loperamide 2 mg capsule 2 mg PO Q6H PRN loose stool 5 days 01/06/25 #20 caps omeprazole 20 mg capsule,delayed 20 mg PO DAILY #90 caps 02/09/25 release quetiapine 50 mg tablet (Seroquel) 50 mg PO HS #90 tabs 02/09/25 atorvastatin 40 mg tablet 40 mg PO DAILY #90 tabs 02/28/25 metformin 500 mg tablet 500 mg PO BID #180 tabs 02/28/25 venlafaxine 50 mg tablet 50 mg PO BID #60 tabs 04/18/25 diazepam 2 mg tablet 2 mg PO TID #90 tabs 05/11/25 clopidogrel 75 mg tablet See Rx Instructions .Route 05/16/25 .COMPLEX #90 tabs famotidine 20 mg tablet See Rx Instructions .Route 05/16/25 .COMPLEX #90 tabs metoprolol succinate 50 mg 50 mg PO BID #180 tabs 05/31/25 tablet,extended release 24 hr gabapentin 100 mg capsule See Rx Instructions .Route 06/06/25 .COMPLEX #60 caps amoxicillin 500 mg capsule 1,000 mg (2 x 500 mg) PO BID #40 06/18/25 caps ondansetron 4 mg disintegrating See Rx Instructions .Route 06/28/25 tablet .COMPLEX #30 tabs Allergies Allergy/AdvReac Type Severity Reaction Status Date / Time codeine (CODEINE) Allergy Unknown WEAK Verified 06/26/25 10:25 hydrochlorothiazide Allergy Unknown I-RASH Verified 06/26/25 10:25 (HYDROCHLOROTHIAZIDE) hydrocodone (HYDROCODONE) Allergy Unknown I-RASH Verified 06/26/25 10:25 metoclopramide Allergy Unknown SLURRED Verified 06/26/25 10:25 (METOCLOPRAMIDE) SPEECH, WEAK nifedipine (NIFEDIPINE) Allergy Unknown I-HIVES Verified 06/26/25 10:25 prazosin (PRAZOSIN) Allergy Unknown ITCHING/WEA Verified 06/26/25 10:25 K triamterene (TRIAMTERENE) Allergy Unknown I-RASH Verified 06/26/25 10:25 PFS <Juhi Guadarrama ([facility]), SCHEDULING COORDINATOR - Last Filed: 07/07/25 15:29> PFS Disclaimer: The information contained in this section may have been updated after the patient was seen, as this information can be updated by other users. Medical History Hallucination Depressed Change in mental status Encephalopathies History of stroke History of heart attack History of hyperlipidemia History of hypertension History of depression History of atrial fibrillation History of anxiety Pulmonary nodule, right Chronic abdominal pain Type 2 diabetes mellitus Anxiety Gastro-esophageal reflux disease without esophagitis Grief reaction Stricture and stenosis of esophagus Esophageal thickening Esophageal thickening Femur fracture, left History of left heart catheterization 4 stents Coronary artery disease Carotid artery stenosis Surgical History History of hernia surgery History of appendectomy History of shoulder surgery History of tonsillectomy History of hysterectomy History of hip replacement History of permanent cardiac pacemaker placement 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 Family History Other FHx: mental illness Family history of cancer Family history of diabetes mellitus type II Family history of hypertension Family history of myocardial infarction Stroke Social History Smoking Status: Never smoker second hand exposure: Yes alcohol intake: never substance use type: denies use current occupational status: retired and disabled Travel in the last 8 weeks?: None household members: none housing: apartment lives independently: Yes marital status: single education level: middle school service: No intermediate: No current occupational exposures/hazards: No caffeine: No do you feel safe at home: Yes victim of physical abuse: No victim of emotional abuse: No victim of sexual abuse: No would you like helpful sources: No Have you lived/traveled outside [place] in past 30 days?: No Contact w/someone who lives/traveled outside US past 30 days?: No Exposure to someone with infectious disease in past 14 days?: No Do you have a fever (greater than 100.4 F or 38 C)?: No Have you tested positive for COVID-19?: No Exposed to someone with COVID-19 in past 14 days?: No Do you have a sore throat?: No Do you have a cough?: No Do you have any weakness?: No Do you have any diarrhea?: No Are you experiencing any unusual bleeding?: No Do you have any muscle aches/pain?: Yes Do you have any abdominal pain?: No Are you experiencing loss of taste or smell?: No Other Medical History Have you received the Flu Vaccine for this season: No Have you received the Pneumonia Vaccine: Yes <Juhi Guadarrama ([facility]), SCHEDULING COORDINATOR - Last Filed: 07/07/25 15:29> ROS Obtained: Yes Systems reviewed as appropriate & no additional complaints except as documented Genitourinary Female Genitourinary: Reports system reviewed and no additional complaints, except as documented, Reports as per HPI, Reports urinary frequency, Reports urinary hesitancy and Reports urinary urgency Physical Exam <Juhi Guadarrama ([facility]), SCHEDULING COORDINATOR - Last Filed: 07/07/25 15:29> General General appearance: alert and in no apparent distress Eye Eye exam: Present normal appearance and PERRL ENT ENT exam: Present normal exam Respiratory Respiratory exam: Present normal lung sounds bilaterally Cardiovascular Cardiovascular exam: Present regular rate and normal rhythm Abdominal Exam Abdominal exam: Present soft and normal bowel sounds Neurological Exam Neurological exam: Present alert and oriented X3 Skin Skin exam: Present warm and intact Medical Decision Making <Juhi Guadarrama ([facility]), SCHEDULING COORDINATOR - Last Filed: 07/07/25 15:29> Medical Records Medical records reviewed: Yes I reviewed the patient's medical records. Screening: Per USPSTF and CDC recommendations, given the prevalence of disease in our region, it is our hospital?s policy to screen for HIV and viral Hepatitis for all patients aged 18 and over and those with ongoing risk factors. Chet Inquiry Pt receiving controlled substance: No Vital Signs: 07/07/25 14:13 Temperature 97.9 F Temperature Source Oral Pulse Rate [Radial] 66 Respiratory Rate 18 Blood Pressure [Right Arm] 135/62 Blood Pressure Mean [Right Arm] 86 Blood Pressure Source [Right Arm] Automatic Cuff Blood Pressure Position [Right Arm] Sitting 02 Sat by Pulse Oximetry 97 Oxygen Delivery Method Room Air Lab Data Lab results reviewed: Yes I reviewed the patient's lab results. Lab Results 07/07/25 14:58: Urine Color Yellow, Urine Appearance Clear, Urine pH 6.0, Ur Specific [place] <= 1.005, Urine Protein Negative, Urine Glucose (UA) Negative, Urine Ketones Negative, Urine Blood Negative, Urine Nitrate Negative, Urine Bilirubin Negative, Urine Urobilinogen 0.2, Ur Leukocyte Esterase Negative, Urine RBC None, Urine WBC 3-5, Ur Squamous Epith Cells Occasional, Urine Bacteria 1+ Orders (Tests/Meds): ORDERS Category Date Time Status Urinalysis and Microscopic Stat Lab 07/07/25 14:58 Completed Urine Culture Stat Micro 07/07/25 15:29 Ordered Medical Decision Narrative: In summary patient is a 74-year-old female who presents to the emergency department for evaluation of low back pain, urinary frequency, urgency,. Patient is hemodynamically stable upon arrival, afebrile. Unremarkable physical exam. Differential diagnosis includes UTI,. Initial workup will be conducted with urinalysis. Initial inventions include p.o. challenge tolerated. Initial workup reviewed by me urinalysis negative. Upon repeat evaluation patient sitting in chair comfortably drinking water without any complaints or pain. Given this patient appropriate for discharge at this time will discharge home. <Kamlesh Wei MD - Last Filed: 07/07/25 15:35> Vital Signs: 07/07/25 14:13 Temperature 97.9 F Temperature Source Oral Pulse Rate [Radial] 66 Respiratory Rate 18 Blood Pressure [Right Arm] 135/62 Blood Pressure Mean [Right Arm] 86 Blood Pressure Source [Right Arm] Automatic Cuff Blood Pressure Position [Right Arm] Sitting 02 Sat by Pulse Oximetry 97 Oxygen Delivery Method Room Air Lab Data Lab Results 07/07/25 14:58: Urine Color Yellow, Urine Appearance Clear, Urine pH 6.0, Ur Specific [place] <= 1.005, Urine Protein Negative, Urine Glucose (UA) Negative, Urine Ketones Negative, Urine Blood Negative, Urine Nitrate Negative, Urine Bilirubin Negative, Urine Urobilinogen 0.2, Ur Leukocyte Esterase Negative, Urine RBC None, Urine WBC 3-5, Ur Squamous Epith Cells Occasional, Urine Bacteria 1+ Orders (Tests/Meds): ORDERS Category Date Time Status Urinalysis and Microscopic Stat Lab 07/07/25 14:58 Completed Urine Culture Stat Micro 07/07/25 15:29 Ordered Medical Decision Narrative: In summary patient is a 74-year-old female who presents to the emergency department for evaluation of low back pain, urinary frequency, urgency,. Patient is hemodynamically stable upon arrival, afebrile. Unremarkable physical exam. Differential diagnosis includes UTI,. Initial workup will be conducted with urinalysis. Initial inventions include p.o. challenge tolerated. Initial workup reviewed by me urinalysis negative. Upon repeat evaluation patient sitting in chair comfortably drinking water without any complaints or pain. Given this patient appropriate for discharge at this time will discharge home. Kamlesh Wei MD: I was consulted by the [place], and we discussed the complexity of the problems being addressed. I approved the treatment and management plan for this patient's care in the emergency department, thus performing a substantive portion of the medical decision making. Urinalysis not consistent with overt infection will follow-up cultures. Critical Care <Juhi Guadarrama ([facility]), SCHEDULING COORDINATOR - Last Filed: 07/07/25 15:29> Critical Care Time Critical Care Time: No
--- OUTSIDE RECORDS SUMMARY | 2025-07-07 14:19 | XMS_ITS | Clinical Summary ---
Author Organization [facility] Address [address] [place] [address] Care Team Providers Care Algebra Tutor Name Role Phone Hansel Ruff MD Primary Care Provider [phone] Allergies Active Allergy Reactions Criticality Noted Date [...] or (1 - 1-dose 75+ series) 12/15/2023 [id number] Vaccine (1 - 2024- season) 2025 [facility]-Influenza Vaccine (#1) 03/12/202503/25, 03/22/2019, 03/18/2018, Additional history exists [facility]-Depression Screening 04/13/2025 04/13/2024 [facility]-Pneumococcal Vaccine: 50+ Years Completed 05/17/2023, 04/29/2017, 02/07/2016, Additional history exists [facility]-Hepatitis C Screening Completed 02/26/2024 HPV Vaccines (No Doses Required) Completed [facility]-HIB Vaccines Aged Out No longer e [...] Antibody Negative Negative 02/26/2024 3:58 PM EDT [facility] Blood Venous blood specimen / Unknown Venipuncture / Unknown 02/26/2024 3:10 PM EDT 02/26/2024 3:22 PM EDT us Edgar Silver APRN LAB BLOOD ORDERABLES Final Re sult [facility] [address] [place] [id number] * (ABNORMAL) Hemoglobin A1c (03/28/2018 3:57 PM [...] <6.0% Children and Adolescents <7.5% . Source: [place] [employer]. Standards of medical care in diabetes, 2017. Diabetes Care.2017:40 (suppl 1):S1-S135. . HbA1c assay performed by an ion-exchange chromatography method that is certified traceable to the DCCT. 03/28/2018 3:57 PM EDT 03/28/2018 4:27 PM EDT us Rosario VALERO LAB BLOOD ORDERABLES Final Result SUNQUEST from Last 3 Months or Most Recently Relevant to Health Maintenance Insurance [place] [id number] [facility] [place] [address] [facility] MEDICAID Care Teams Algebra Tutor Relationship Specialty Start Date End Date Hansel Ruff MD [address] [facility] [address] [place] [address] PCP - General 02/26/24
[2025-07-07 15:00] LABS: Microscopic, Urine URINE MICROSCOPIC (MICROSCOPIC)
[2025-07-07 15:03] LABS: Bilirubin,Urine Negative (Negative); Color,Urine YELLOW (Yellow); Glucose,Urine (UA) Negative (Negative); Ketones,Urine Negative (Negative); Leukocyte Esterase,Urine Negative (Negative); PH,Urine 6.0 (5.0-8.5); Protein,Urine Negative (Negative); Specific Gravity, Urine <= 1.005 (1.005-1.030); Urobilinogen,Urine 0.2 EU/dl (0.2)
[2025-07-07 15:28] LABS: Bacteria,Urine 1+ /lpf
[2025-07-07 15:29] LABS: Squamous Epithelial Cell,Urine Occasional #/hpf (0-5)
[2025-07-07 16:01] VITALS: BP 128/79; PULSE 80; RESP 20; TEMP 36.8; O2SAT 98
== END 2025-07-07 16:02 | disposition home or self-care (01) ==
PROVIDERS: Nurse Practitioner Family; Emergency Provider Emergency Medicine; PCP Internal Medicine
DX: R35.0 Frequency of micturition (principal); R39.15 Urgency of urination; R30.0 Dysuria; M54.50 Low back pain, unspecified
CPT/HCPCS: 81001; 87086; 99283

== ENCOUNTER 2025-07-09 13:55 | Emergency (ER) | payer MEDICARE, SELFPAY ==
[2025-07-09 14:02] VITALS: BP 147/45; PULSE 64; RESP 18; TEMP 36.4; O2SAT 98; BMI 23.4
[2025-07-09 14:21] LABS: Microscopic, Urine URINE MICROSCOPIC (MICROSCOPIC)
--- NOTE | 2025-07-09 14:23 | ED_ITS ---
<Statement entered by Karo Cadena MD - 07/10/25 23:21> I was consulted by the [facility], and we discussed the complexity of the problems being addressed. I approved the treatment and management plan for this patient's care in the emergency department, thus performing a substantive portion of the medical decision making. Karo Cadena MD, RADHIKA, FACEP Discharge Plan Disposition Patient Disposition: Admitted Prescriptions Prescriptions: No Action nitroglycerin 0.3 mg tablet, sublingual 0.3 mg sublingual Q5M PRN (Reason: chest pain) Qty: 20 3RF Rx Instructions: do not exceed 3 doses per episode cholecalciferol (vitamin D3) 50 mcg (2,000 unit) capsule 50 mcg PO DAILY amoxicillin 500 mg capsule 1,000 mg PO BID Qty: 40 0RF (DME) blood pressure monitor Kit See Rx Instructions .Route Qty: 1 0RF Rx Instructions: As directed polyethylene glycol 3350 [Miralax] 17 gram/dose powder 17 g PO DAILY venlafaxine 50 mg tablet 50 mg PO BID Qty: 60 5RF isosorbide dinitrate 10 mg tablet 10 mg PO TID Patient Comments: TAKE 1 TABLET BY MOUTH 3 TIMES A DAY. allow nitrate free interval of 12 TO 14 hours PER 24 hour period. fluticasone propionate 50 mcg/actuation spray,suspension 2 spray intranasal DAILY Qty: 16 5RF omeprazole 20 mg capsule,delayed release(DR/EC) 20 mg PO DAILY Qty: 90 1RF quetiapine [Seroquel] 50 mg tablet 50 mg PO HS Qty: 90 1RF atorvastatin 40 mg tablet 40 mg PO DAILY Qty: 90 1RF metformin 500 mg tablet 500 mg PO BID Qty: 180 1RF diazepam 2 mg tablet 2 mg PO TID Qty: 90 2RF famotidine 20 mg tablet See Rx Instructions .ROUTE .COMPLEX Qty: 90 3RF Dose Instruction: TAKE ONE TABLET BY MOUTH ONCE A DAY FOR GERD Rx Instructions: TAKE ONE TABLET BY MOUTH ONCE A DAY FOR GERD clopidogrel 75 mg tablet See Rx Instructions .ROUTE .COMPLEX Qty: 90 1RF Dose Instruction: TAKE ONE TABLET BY MOUTH DAY Rx Instructions: TAKE ONE TABLET BY MOUTH DAY metoprolol succinate 50 mg tablet extended release 24 hr 50 mg PO BID Qty: 180 1RF ondansetron 4 mg tablet,disintegrating See Rx Instructions .ROUTE .COMPLEX Qty: 30 1RF Dose Instruction: DISSOLVE 1 TABLET ON THE TONGUE EVERY 8 HOURS NEEDED FOR FOR NAUSEA AND VOMITING Rx Instructions: DISSOLVE 1 TABLET ON THE TONGUE EVERY 8 HOURS NEEDED FOR FOR NAUSEA AND VOMITING furosemide [Lasix] 20 mg tablet 20 mg PO DAILY PRN (Reason: Swelling in lower EXTR.) Qty: 30 2RF gabapentin 100 mg capsule See Rx Instructions .ROUTE .COMPLEX Qty: 60 0RF Dose Instruction: TAKE 2 CAPSULES (200 MG) BY MOUTH AT BEDTIME Rx Instructions: TAKE 2 CAPSULES (200 MG) BY MOUTH AT BEDTIME Probiotic 15 billion cell capsule, sprinkle 1 cap PO DAILY 30 Days Qty: 30 0RF Rx Instructions: do not crush/chew/cut; swallow whole OR may open and sprinkle in cold drink/food acetaminophen [Tylenol] 325 mg tablet 325 mg PO QID PRN (Reason: pain) Qty: 30 0RF aspirin 81 mg tablet,chewable 81 mg PO DAILY loperamide 2 mg capsule 2 mg PO Q6H PRN (Reason: loose stool) 5 Days Qty: 20 0RF Rx Instructions: Please take 4 mg initially, followed by 2 mg after each loose stool, maximum 16 mg/day Referrals Follow up/Referrals: Hansel Ruff MD [Primary Care Provider, Medical] - See instructions Clinical Impressions Clinical Impression: Anemia, Dyspnea Instructions Patient Instructions: DI for Acute Abdominal Pain Print Language Print Language: Mongolian Discharge ED Provider: Karo Cadena General Adult HPI General Chief complaint: Abdominal Pain Stated complaint: abd pain Time Seen by Provider: 07/09/25 14:10 Mode of Arrival: Ambulatory Source of Information: Patient Description of Symptoms (Recalled from ER Triage Doc. by RN): Pt presents with c/o lower abdominal pain since last night. Pt denies any vomitting but c/o slight nausea. History of Present Illness HPI narrative: 74-year-old female who presents to the ED today for complaint of abdominal pain since earlier today. States she has been having increased bowel movements but no diarrhea. She has nausea but no vomiting. She says she was here last on Wednesday and diagnosed with a UTI. She has had no fevers or chills. No other symptoms today. Related Data Home Medications ?Medication ?Instructions ?Recorded ?Confirmed aspirin 81 mg chewable tablet 81 mg PO DAILY 07/21/23 06/26/25 polyethylene glycol 3350 17 17 g PO DAILY 11/16/24 gram/dose oral powder (Miralax) cholecalciferol (vitamin D3) 50 50 mcg PO DAILY 06/26/25 mcg (2,000 unit) capsule isosorbide dinitrate 10 mg tablet 10 mg PO TID 5 06/26/25 Previous Rx's ?Medication ?Instructions ?Recorded lactobacillus combo no.11 15 1 cap PO DAILY 30 days #3 0 caps 06/16/24 billion cell sprinkle capsule (Probiotic) acetaminophen 325 mg tablet 325 mg PO QID PRN pain #30 tabs 07/15/24 (Tylenol) blood pressure monitor #1 ea 10/10/24 nitroglycerin 0.3 mg sublingual 0.3 mg sublingual Q5M PRN chest 11/15/24 tablet pain #20 tabs fluticasone propionate 50 2 spray intranasal DAILY #16 grams 12/11/24 mcg/actuation nasal spray,suspension loperamide 2 mg capsule 2 mg PO Q6H PRN loose stool 5 days 01/06/25 #20 caps omeprazole 20 mg capsule,delayed 20 mg PO DAILY #90 ca ps 02/09/25 release quetiapine 50 mg tablet (Seroquel) 50 mg PO HS #90 tab s 02/09/25 atorvastatin 40 mg tablet 40 mg PO DAILY #90 tabs 02/10 metformin 500 mg tablet 500 mg PO BID #180 tabs 02/10 venlafaxine 50 mg tablet 50 mg PO BID #60 tabs diazepam 2 mg tablet 2 mg PO TID #90 tabs 5 clopidogrel 75 mg tablet See Rx Instructions .Route 1 07/16/24 .COMPLEX #90 tabs famotidine 20 mg tablet See Rx Instructions .Route 1 07/16/24 .COMPLEX #90 tabs metoprolol succinate 50 mg 50 mg PO BID #180 tabs 05/13 tablet,extended release 24 hr amoxicillin 500 mg capsule 1,000 mg (2 x 500 mg) PO BI D #40 06/18/25 caps ondansetron 4 mg disintegrating See Rx Instructions .R oute 06/28/25 tablet .COMPLEX #30 tabs furosemide 20 mg tablet (Lasix) 20 mg PO DAILY PRN Swe lling in 07/09/25 lower EXTR. #30 tabs gabapentin 100 mg capsule See Rx Instructions .Route 1 .COMPLEX #60 caps Allergies Allergy/AdvReac Type Severity Reaction Status Date / Time codeine (CODEINE) Allergy Unknown WEAK Verified 06/26/25 10:25 hydrochlorothiazide Allergy Unknown I-RASH Verified 06/26/25 10:25 (HYDROCHLOROTHIAZIDE) hydrocodone (HYDROCODONE) Allergy Unknown I-RASH Verified 06/26/25 10:25 metoclopramide Allergy Unknown SLURRED Verified 06/26/25 10:25 (METOCLOPRAMIDE) SPEECH, WEAK nifedipine (NIFEDIPINE) Allergy Unknown I-HIVES Verified 06/26/25 10:25 prazosin (PRAZOSIN) Allergy Unknown ITCHING/WEA Verified 06/26/25 10:25 K triamterene (TRIAMTERENE) Allergy Unknown I-RASH Verified 06/26/25 10:25 PFSH PFSH Disclaimer: The information contained in this section may have been updated after the patient was seen, as this information can be updated by other users. Medical History Hallucination Depressed Change in mental status Encephalopathies History of stroke History of heart attack History of hyperlipidemia History of hypertension History of depression History of atrial fibrillation History of anxiety Pulmonary nodule, right Chronic abdominal pain Type 2 diabetes mellitus Anxiety Gastro-esophageal reflux disease without esophagitis Grief reaction Stricture and stenosis of esophagus Esophageal thickening Esophageal thickening Femur fracture, left History of left heart catheterization 4 stents Coronary artery disease Carotid artery stenosis Surgical History History of hernia surgery History of appendectomy History of shoulder surgery History of tonsillectomy History of hysterectomy History of hip replacement History of permanent cardiac pacemaker placement 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 Family History Other FHx: mental illness Family history of cancer Family history of diabetes mellitus type II Family history of hypertension Family history of myocardial infarction Stroke Social History Smoking Status: Never smoker second hand exposure: Yes alcohol intake: never substance use type: denies use current occupational status: retired and disabled Travel in the last 8 weeks?: None household members: none housing: apartment lives independently: Yes marital status: single education level: middle school service: No half-way: No current occupational exposures/hazards: No caffeine: No do you feel safe at home: Yes victim of physical abuse: No victim of emotional abuse: No victim of sexual abuse: No would you like helpful sources: No Have you lived/traveled outside [place] in past 30 days?: No Contact w/someone who lives/traveled outside US past 30 days?: No Exposure to someone with infectious disease in past 14 days?: No Do you have a fever (greater than 100.4 F or 38 C)?: No Have you tested positive for COVID-19?: No Exposed to someone with COVID-19 in past 14 days?: No Do you have a sore throat?: No Do you have a cough?: No Do you have any weakness?: No Do you have any diarrhea?: No Are you experiencing any unusual bleeding?: No Do you have any muscle aches/pain?: No Do you have any abdominal pain?: Yes Are you experiencing loss of taste or smell?: No Other Medical History Have you received the Flu Vaccine for this season: No Have you received the Pneumonia Vaccine: Yes ROS Obtained: Yes Systems reviewed as appropriate & no additional complaints except as documented Constitutional Constitutional: Reports as per HPI Physical Exam General General appearance: alert and in no apparent distress Head Head exam: normocephalic Eye Eye exam: Present PERRL and EOMI ENT ENT exam: Present normal oropharynx and mucous membranes moist Neck Neck exam: Present full ROM and trachea midline Respiratory Respiratory exam: Present normal lung sounds bilaterally Cardiovascular Cardiovascular exam: Present regular rate, normal rhythm, normal heart sounds, +S1 and +S2 Abdominal Exam Abdominal exam: Present soft and normal bowel sounds Abdominal tenderness: Present diffuse Extremities Exam Extremities exam: Present full ROM and normal capillary refill Neurological Exam Neurological exam: Present alert and oriented X3 Skin Skin exam: Present warm and dry Medical Decision Making Medical Records Screening: Per USPSTF and CDC recommendations, given the prevalence of disease in our region, it is our hospital?s policy to screen for HIV and viral Hepatitis for all patients aged 18 and over and those with ongoing risk factors. Chet Inquiry Pt receiving controlled substance: No Chet was queried for this patient: No Vital Signs: 07/09/25 14:02 Temperature 97.5 F L Temperature Source Oral Pulse Rate [Right] 64 Respiratory Rate 18 Blood Pressure [Right Arm] 147/45 H Blood Pressure Mean [Right Arm] 79 Blood Pressure Source [Right Arm] Automatic Cuff Blood Pressure Position [Right Arm] Sitting 02 Sat by Pulse Oximetry 98 Oxygen Delivery Method Room Air Lab Data Lab Results 07/09/25 14:13: Urine Color Yellow, Urine Appearance Clear, Urine pH 6.0, Ur Specific [place] <= 1.005, Urine Protein Negative, Urine Glucose (UA) Negative, Urine Ketones Negative, Urine Blood Negative, Urine Nitrate Negative, Urine Bilirubin Negative, Urine Urobilinogen 0.2, Ur Leukocyte Esterase Negative, Urine RBC None, Urine WBC Occasional, Ur Squamous Epith Cells Occasional, Urine Bacteria Trace 07/09/25 14:40: WBC 6.3, RBC 3.53 L, Hgb 11.3 L, Hct 33.2 L, MCV 94.1, MCH 32.0 H, MCHC 34.0, RDW 14.4, Plt Count 218, MPV 10.7 H, Neut % (Auto) 74.9, Lymph % (Auto) 14.7, [place] % (Auto) 9.4 H, Eos % (Auto) 0.5, Baso % (Auto) 0.3, Neut # (Auto) 4.7, Lymph # (Auto) 0.9, [place] # (Auto) 0.6, Eos # (Auto) 0.0, Baso # (Auto) 0.0, Sodium 133 L, Potassium 4.9, Chloride 95 L, Carbon Dioxide 28, Anion Gap 14.9, BUN 26 H, Creatinine 0.90, Estimated Creat Clear 41, Estimated GFR 61, Est GFR ( Amer) 74, Glucose 178 H, Calcium 10.3 H, Magnesium 2.0, Total Bilirubin 0.6, AST 28, ALT 18, Alkaline Phosphatase 67, Total Protein 7.7, A lbumin 5.1 H, Globulin 2.6, Albumin/Globulin Ratio 2.0 H, Lipase 174 07/09/25 14:40 07/09/25 14:40 Orders (Tests/Meds): ED MEDICATIONS Generic Name Dose Route Start Last Admin Trade Name Freq PRN Reason Stop Dose Admin Sodium Chloride 8 ml 07/09/25 14:18 Sodium Chloride 0.9% 10ml Vial IV 08/08/25 14:17 NEEDED PRN dilute pepcid Discontinued Medications Generic Name Dose Route Start Last Admin Trade Name Juan F PRN Reason Stop Dose Admin Famotidine 20 mg 07/09/25 14:18 07/09/25 14:40 Famotidine 20mg/2ml Vial IV 07/09/25 14:19 20 mg ONCE ONE Administration Ondansetron HCl 4 mg 07/09/25 14:18 07/09/25 14:40 Ondansetron 4mg/2ml Vial IV 07/09/25 14:19 4 mg ONCE ONE Administration ORDERS Category Date Time Status CBC [Complete Blood Count Auto Diff] Stat Lab 07/09/25 14:40 Completed Comprehensive Metabolic Panel Stat Lab 07/09/25 14:40 Results Lipase Stat Lab 07/09/25 14:40 Results Magnesium Stat Lab 07/09/25 14:40 Results Rapid PCR Covid and Flu A/B Stat Lab 07/09/25 14:54 Received Trop I [Troponin I] Stat Lab 07/09/25 14:40 Results Urinalysis and Microscopic Stat Lab 07/09/25 14:13 Completed Medical Decision Narrative: patient is a 74-year-old female presenting to the emergency department for evaluation of diffuse abdominal pain, increased bowel movements but no diarrhea since this morning. Patient is hemodynamically stable and nontoxic-appearing upon arrival, afebrile. Differential diagnosis includes viral illness, gastroenteritis, among others. Workup will be conducted with hematologic labs. Initial inventions include crystalloid bolus, analgesics. Initial workup reviewed by sc hematologic labs are remarkable for Normal white count 6.3, hemoglobin 11.3, hematocrit 33, sodium 133, potassium 4.9, chloride 95, BUN and creatinine were 26 and 0.9 liver function was normal urine looked okay. Patient's abdominal pain has improved. Patient will be sent home with meds for her abdominal pain. She needs to follow-up with her primary care. Patient safe for discharge home. Critical Care Critical Care Time Critical Care Time: No
--- OUTSIDE RECORDS SUMMARY | 2025-07-09 14:27 | XMS_ITS | Clinical Summary ---
Author Organization [facility] Address [address] [place] [address] Care Team Providers Care Lens Maker Name Role Phone Hansel Ruff MD Primary Care Provider [phone] Allergies Active Allergy Reactions Criticality Noted Date [...] or (1 - 1-dose 75+ series) 12/15/2023 [id number] Vaccine (1 - 2024- season) 2025 UKY-Influenza [...] Antibody Negative Negative 02/26/2024 3:58 PM EDT [facility] Blood Venous blood specimen / Unknown Venipuncture / Unknown 02/26/2024 3:10 PM EDT 02/26/2024 3:22 PM EDT us Edgar Silver APRN LAB BLOOD ORDERABLES Final Re sult [facility] [address] [place] [id number] * (ABNORMAL) Hemoglobin A1c (03/28/2018 3:57 PM [...] <6.0% Children and Adolescents <7.5% . Source: [place] [employer]. Standards of medical care in diabetes, 2017. Diabetes Care.2017:40 (suppl 1):S1-S135. . HbA1c assay performed by an ion-exchange chromatography method that is certified traceable to the DCCT. 03/28/2018 3:57 PM EDT 03/28/2018 4:27 PM EDT us Rosario VALERO LAB BLOOD ORDERABLES Final Result SUNQUEST from Last 3 Months or Most Recently Relevant to Health Maintenance Insurance [place] [id number] [facility] MEDICARE [facility] MEDICAID Care Teams Lens Maker Relationship Specialty Start Date End Date Hansel Ruff MD [address] [facility] [address] [place] [address] PCP - General 02/26/24
[2025-07-09] MEDS: FAMOTIDINE 20MG/2ML VIAL 20 MG IV (14:40)
[2025-07-09] MEDS: ONDANSETRON 4MG/2ML VIAL 4 MG IV (14:40)
[2025-07-09 14:51] LABS: Bilirubin,Urine Negative (Negative); Color,Urine YELLOW (Yellow); Glucose,Urine (UA) Negative (Negative); Ketones,Urine Negative (Negative); Leukocyte Esterase,Urine Negative (Negative); PH,Urine 6.0 (5.0-8.5); Protein,Urine Negative (Negative); Specific Gravity, Urine <= 1.005 (1.005-1.030); Urobilinogen,Urine 0.2 EU/dl (0.2)
[2025-07-09 14:57] LABS: Coronavirus 19, PCR Not Detected (NotDetected); Influenza A, PCR Not Detected (NotDetected); Influenza B, PCR Not Detected (NotDetected)
[2025-07-09 14:58] LABS: Hematocrit 33.2 % (37.0-47.0); Hemoglobin 11.3 g/dL (12.2-16.2); Immature Granulocytes % 0.2 %; Mean Corpuscular HGB Conc 34.0 g/dL (31.8-35.4); Mean Corpuscular Hemoglobin 32.0 pg (27.0-31.2); Mean Corpuscular Volume 94.1 fl (81-99); Nucleated Red Blood Cells % 0 %; Platelet Count 218 K/mm3 (142-424); Red Blood Count 3.53 M/mm3 (4.20-5.40); Red Cell Distribution Width-SD 48.7 fL; White Blood Count 6.3 K/mm3 (4.8-10.8)
[2025-07-09 15:03] LABS: Bacteria,Urine Trace /lpf; Squamous Epithelial Cell,Urine Occasional #/hpf (0-5); WBC,Urine Occasional #/hpf (0-3)
[2025-07-09 15:04] LABS: Chloride 95 mmol/L (98-107)
[2025-07-09 15:05] LABS: Albumin Level 5.1 g/dl (3.5-5.0); Potassium 4.9 mmoL/L (3.5-5.1); Sodium 133 mmol/L (136-145)
[2025-07-09 15:08] LABS: Alanine Aminotransferase 18 U/L (12-78); Albumin/Globulin Ratio 2.0 (1.1-1.8); Alkaline Phosphatase 67 U/L (38-126); Anion Gap 14.9 mEq/L (5-15); Aspartate Amino Transferase 28 U/L (14-36); Bilirubin,Total 0.6 mg/dl (0.2-1.3); Blood Urea Nitrogen 26 mg/dl (7-17); Calcium 10.3 mg/dl (8.4-10.2); Carbon Dioxide 28 mmol/L (22.0-30.0); Creatinine Clearance Estimated 41 mL/min (50-200); Creatinine,Serum 0.90 mg/dl (0.52-1.04); Estimated Glomerular Filt Rate 61 ml/min (>60); GFR (African American) 74 ML/MIN (>60); Globulin 2.6 g/dL (1.3-3.2); Glucose 178 mg/dl (74-100); Lipase 174 U/L (23-300); Total Protein,Serum 7.7 g/dl (6.3-8.2)
[2025-07-09 15:09] LABS: Magnesium 2.0 mg/dl (1.6-2.3)
[2025-07-09 15:33] VITALS: BP 135/62; PULSE 70; RESP 18; TEMP 36.7; O2SAT 98
[2025-07-09 15:36] LABS: Troponin I < 0.01 ng/ml (0.00-0.034)
== END 2025-07-09 15:33 | disposition home or self-care (01) ==
PROVIDERS: Nurse Practitioner; Emergency Provider Student in an Organized Health Care Education/Training Program; PCP Internal Medicine
DX: R10.84 Generalized abdominal pain (principal); D64.9 Anemia, unspecified; R06.02 Shortness of breath
CPT/HCPCS: 80053; 81001; 83690; 83735; 84484; 85025; 87636; 96374; 96375; 99284; J1308; J2405